=== PATIENT | male | born 2000 | race Hispanic/Latino ===

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

== ENCOUNTER 2022-07-15 15:25 | Emergency (ER) | payer OTHER ==
--- NOTE | 2022-07-15 15:41 | EDPHYS ---
Physician Documentation [facility] Name: Cliff Kang Age: 22 yrs Sex: Male : 2000 Arrival Date: 07/15/2022 Time: 15:25 Bed 9 Private MD: ED Physician Roby Melendez HPI: 07/15 15:51 This 22 yrs old Male presents to ER via Ambulatory with complaints of Cough. snw 15:51 The patient or guardian reports cough, described as moderate, described as severe. snw Onset: The symptoms/episode began/occurred acutely, gradually, and became worse 1 week(s) ago. Associated signs and symptoms: Pertinent positives: chest pain, fever, cough, this patient has no pertinent positive symptoms. Severity of symptoms: At their worst the symptoms were moderate. It is unknown whether or not the patient has had similar symptoms in the past. The patient has not recently seen a physician, The patient has been recently seen by a physician: seen at outside ED one week ago, given rescue inhaler and cough medication. hx of asthma. Historical: - Allergies: 15:43 No Known Allergies; jl7 - Home Meds: 15:43 None [Active]; jl7 - PMHx: 15:43 ADD/ADHD; Asthma; Depression; mood disorder; jl7 - PSHx: 15:43 Left ACL Repair; jl7 - Immunization history:: Adult Immunizations unknown. - Social history:: Smoking status: unknown. ROS: 15:50 Constitutional: Negative for fever, chills, and weight loss, Eyes: Negative for injury, snw pain, redness, and discharge, ENT: Negative for injury, pain, and discharge, Neck: Negative for injury, pain, and swelling, Cardiovascular: Negative for chest pain, palpitations, and edema, Abdomen/GI: Negative for abdominal pain, nausea, vomiting, diarrhea, and constipation, Back: Negative for injury and pain, : Negative for injury, bleeding, discharge, and swelling, MS/Extremity: Negative for injury and deformity, Skin: Negative for injury, rash, and discoloration, Neuro: Negative for headache, weakness, numbness, tingling, and seizure, Psych: Negative for depression, anxiety, suicide ideation, homicidal ideation, and hallucinations. 15:50 Respiratory: Positive for cough, with green sputum, wheezing. Exam: 15:50 Constitutional: This is a well developed, well nourished patient who is awake, alert, snw and in no acute distress. Head/Face: Normocephalic, atraumatic. Eyes: Pupils equal round and reactive to light, extra-ocular motions intact. Lids and lashes normal. Conjunctiva and sclera are non-icteric and not injected. Cornea within normal limits. Periorbital areas with no swelling, redness, or edema. ENT: Nares patent. No nasal discharge, no septal abnormalities noted. Tympanic membranes are normal and external auditory canals are clear. Oropharynx with no redness, swelling, or masses, exudates, or evidence of obstruction, uvula midline. Mucous membranes moist. Neck: Trachea midline, no thyromegaly or masses palpated, and no cervical lymphadenopathy. Supple, full range of motion without nuchal rigidity, or vertebral point tenderness. No Meningismus. Chest/axilla: Normal chest wall appearance and motion. Nontender with no deformity. No lesions are appreciated. Cardiovascular: Regular rate and rhythm with a normal S1 and S2. No gallops, murmurs, or rubs. Normal PMI, no JVD. No pulse deficits. Abdomen/GI: Soft, non-tender, with normal bowel sounds. No distension or tympany. No guarding or rebound. No evidence of tenderness throughout. Back: No spinal tenderness. No costovertebral tenderness. Full range of motion. Skin: Warm, dry with normal turgor. Normal color with no rashes, no lesions, and no evidence of cellulitis. MS/ Extremity: Pulses equal, no cyanosis. Neurovascular intact. Full, normal range of motion. Neuro: Awake and alert, GCS 15, oriented to person, place, time, and situation. Cranial nerves II-XII grossly intact. Motor strength 5/5 in all extremities. Sensory grossly intact. Cerebellar exam normal. Normal gait. Psych: Awake, alert, with orientation to person, place and time. Behavior, mood, and affect are within normal limits. 15:50 Respiratory: the patient does not display signs of respiratory distress, Respirations: shallow respirations, that is moderate, bronchitic cough, Breath sounds: bronchial sounds. Vital Signs: 15:40 BP 145 / 92; Pulse 113; Resp 19; Temp 98.7; Pulse Ox 96% ; Weight 81.65 kg; Height 5 jl7 ft. 5 in. ; 15:40 Body Mass Index 29.95 (81.65 kg, 165.1 cm) [facility] MDM: 15:29 Patient medically screened. snw 15:59 Differential diagnosis: obstructed airway, bronchitis, flu, URI. Data reviewed: vital snw signs, nurses notes. I considered the following discharge prescriptions or medication management in the emergency department Medications were administered in the Emergency Department. See MAR. Care significantly affected by the following chronic conditions: asthma. Counseling: I had a detailed discussion with the patient and/or guardian regarding: the historical points, exam findings, and any diagnostic results supporting the discharge/admit diagnosis, the presence of at least one elevated blood pressure reading (>120/80) during this emergency department visit, the need for outpatient follow up, for definitive care, to return to the emergency department if symptoms worsen or persist or if there are any questions or concerns that arise at home. Response to treatment: There is no appreciated change of the patient's symptoms at this time. Special discussion: I have referred the patient to see his PCP for further evaluation of high blood pressure. Based on the history and exam findings, there is no indication for further emergent testing or inpatient evaluation. I discussed with the patient/guardian the need to see the primary care provider for further evaluation of the symptoms. Administered Medications: 16:12 Drug: Dexamethasone IM 10 mg Route: IM; Site: right deltoid; [facility] 16:13 Follow up: Response: Medication administered at discharge. [facility] 16:12 Drug: AZITHromycin PO 500 mg Route: PO; [facility] 16:13 Follow up: Response: Medication administered at discharge. [facility] 16:12 Drug: Tussionex Pennkinetic ER PO Suspension 5 ml Route: PO; [facility] 16:13 Follow up: Response: Medication administered at discharge. [facility] Disposition Summary: 07/15/22 15:40 Discharge Ordered Location: Home snw Condition: Stable snw Diagnosis - Unspecified asthma with (acute) exacerbation snw Followup: snw - With: Emergency Department - When: As needed - Reason: Worsening of condition Followup: snw - With: Private Physician - When: 2 - 3 days - Reason: Recheck today's complaints, Continuance of care, Re-evaluation by your physician Discharge Instructions: - Discharge Summary Sheet snw - Asthma, Adult snw - Bronchospasm, Adult snw - Hypertension, Adult snw - Form - Blood Pressure Record Sheet snw - How to Take Your Blood Pressure snw Forms: - Work release form snw - Medication Reconciliation Form snw - Thank You Letter snw - Antibiotic Education snw - Prescription Opioid Use snw Prescriptions: - Zyrtec 10 mg Oral Tablet - take 1 tablet by ORAL route once daily As needed; 20 tablet; Refills: 0, snw Product Selection Permitted - Prednisone 20 mg Oral Tablet - take 2 tablets by ORAL route once daily for 5 days; 10 tablet; Refills: 0, snw Product Selection Permitted - Pepcid 20 mg Oral Tablet - take 1 tablet by ORAL route once daily; 20 tablet; Refills: 0, Product snw Selection Permitted - Zithromax 500 mg Oral Tablet - take 1 tablet by ORAL route once daily for 5 days; 5 tablet; Refills: 0, snw Product Selection Permitted Signatures: Swati Power, DEANA-C JACKET PREPARER-Csnw Gonsalo Liriano, RN RN jl7
[2022-07-15] MEDS ORDERED: HYDROCODONE/CHLORPHEN 5 ML/OSYR ONE (16:13)
[2022-07-15] MEDS ORDERED: dexAMETHasone 10 MG/ML VIAL ONE (16:14)
[2022-07-15] MEDS ORDERED: AZITHROMYCIN 250 MG TAB ONE (16:14)
--- NOTE | 2022-07-15 16:14 | ER ---
Nurse's Notes [facility] Name: Cliff Kang Age: 22 yrs Sex: Male : 2000 Arrival Date: 07/15/2022 Time: 15:25 Bed 9 Private MD: Diagnosis: Unspecified asthma with (acute) exacerbation Presentation: 07/15 15:40 Chief complaint: Patient states: Productive cough x 1 week, [facility] discharged jl7 with Mucinex but no improvement. Coronavirus screen: cough unrelated to allergies. Ebola Screen: No symptoms or risks identified at this time. Initial Sepsis Screen: Does the patient meet any 2 criteria? No. Patient's initial sepsis screen is negative. Does the patient have a suspected source of infection? No. Patient's initial sepsis screen is negative. Risk Assessment: Do you want to hurt yourself or someone else? Patient reports no desire to harm self or others. Onset of symptoms was July 08, 2022. Care prior to arrival: None. 15:40 Method Of Arrival: Ambulatory [facility] 15:40 Acuity: MIRNA 3 jl7 Triage Assessment: 15:43 General: Appears in no apparent distress. uncomfortable, Behavior is calm, cooperative, jl7 appropriate for age. Pain: Denies pain. Historical: - Allergies: 15:43 No Known Allergies; jl7 - Home Meds: 15:43 None [Active]; jl7 - PMHx: 15:43 ADD/ADHD; Asthma; Depression; mood disorder; jl7 - PSHx: 15:43 Left ACL Repair; jl7 - Immunization history:: Adult Immunizations unknown. - Social history:: Smoking status: unknown. Vital Signs: 15:40 BP 145 / 92; Pulse 113; Resp 19; Temp 98.7; Pulse Ox 96% ; Weight 81.65 kg; Height 5 jl7 ft. 5 in. ; 15:40 Body Mass Index 29.95 (81.65 kg, 165.1 cm) jl7 ED Course: 15:26 Patient arrived in ED. mr 15:27 Swati Power [facility]C [facility] snw 15:27 Roby Melendez MD is Attending Physician. snw 15:33 Katina Sinha, ROSANGELA is Primary Nurse. nj1 15:43 Triage completed. jl7 15:43 Arm band placed on right wrist. jl7 16:13 No provider procedures requiring assistance completed. Patient did not have IV access jl7 during this emergency room visit. Administered Medications: 16:12 Drug: Dexamethasone IM 10 mg Route: IM; Site: right deltoid; jl7 16:13 Follow up: Response: Medication administered at discharge. jl7 16:12 Drug: AZITHromycin PO 500 mg Route: PO; jl7 16:13 Follow up: Response: Medication administered at discharge. jl7 16:12 Drug: Tussionex Pennkinetic ER PO Suspension 5 ml Route: PO; jl7 16:13 Follow up: Response: Medication administered at discharge. jl7 Outcome: 15:40 Discharge ordered by MD. snw 16:13 Discharged to home ambulatory. jl7 16:13 Condition: stable 16:13 Discharge instructions given to patient, Instructed on discharge instructions, follow up and referral plans. medication usage, Demonstrated understanding of instructions, follow-up care, medications, Prescriptions given X 4. 16:13 Patient left the ED. jl7 Signatures: Swati Power, CONCRETE [employer]EMAN-C [employer]CR[employer]E FOREMAN-Csnw Jacey Monge Jahala, RN RN jl7 Katina Sinha RN RN nj1
[2022-07-15 16:27] VITALS: BP 145/92; TEMP 98.7; O2SAT 96
== END 2022-07-15 16:13 | disposition home or self-care (01) ==
LOC: ER 15:25
DX: J45.901 Unspecified asthma with (acute) exacerbation (principal)
CPT/HCPCS: 96372; 99284; J1100

== ENCOUNTER 2022-08-24 10:57 | Emergency (ER) | payer OTHER ==
--- OUTSIDE RECORDS SUMMARY | 2022-08-24 11:17 | XMS REPORT | Continuity of Care Document ---
:2000 Author Organization [facility] t Address [address] [place] [address] Care Team Providers Name Role Phone James Krueger Primary Care Physician MONROE LOOYLA Attending Clinician Unavailable Monroe Mo Attending Clinician Unknown, Attending Attending Clinician Unavailable Sathya Sherwood Attending Clinician SATHYA VASQUEZ Attending Clinician Unavailable Cami Graff RN Attending Clinician Unavailable NORA BARRERA Attending Clinician Unavailable Nora Barrera MD Attending Clinician DON FINNEY Attending Clinician Unavailable Don Finney MD Attending Clinician TRACY BABIN Attending Clinician Unavailable Tracy Babin MD Attending Clinician Doctor Unassigned, Edgard Attending Clinician Unavailable MARIMAR JEWELL Attending Clinician Unavailable MITALI LOWERY Attending Clinician Unavailable Mitali Madera Attending Clinician Provider, [facility] Attending Clinician Unavailable Devorah Zacarias RN Attending Clinician Unavailable STEVIE GREGG Attending Clinician Unavailable Shivani Damico Attending Clinician Marysol STONE, Stevie Attending Clinician Only, Ang Db Test Attending Clinician Unavailable Farrukh Landry Attending Clinician FARRUKH HYMAN Attending Clinician Unavailable LEA SWAIN Attending Clinician Unavailable Anton GILBERT, Chin Brown Attending Clinician Lab, [facility] Attending Clinician Unavailable AREN SHABAZZ Attending Clinician Unavailable Mele CIGAR HEAD PERFORATOR, Aren Attending Clinician Nurse, [facility] Attending Clinician Unavailable UNKNOWN, ATTENDING Attending Clinician Unavailable TACHO CAIN Attending Clinician Unavailable Miguel Angel PT, Lolly Langford Attending Clinician Unavailable Tacho Cain MD Attending Clinician Landon HASH SLINGER, Guerline Howell Attending Clinician Unavailable TRACY BABIN Admitting Clinician Unavailable Payers Payer Name Policy Type Policy Number Effective Date Expiration Date [employer] [id number] 2021 00:00:00 Problems Condition Condition Condition Status Onset Resolution Last Treating Co mments Source Name Details Category Date Date Treatment Clinician Date 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 Added automatic ally from request for surgery [id number] Allergies, Adverse Reactions, Alerts Allergy Allergy Status Severity Reaction(s) Onset Inactive Treating Comm ents Source Name Type Date Date Clinician BENZONAT DRUG Active Anxiety Univers ATE INGREDI 3-30 ity of 00:00: [place] 00 Medical Branch Benzonat Propensi Active Anxiety 0 Unive rs ate ty to 3-30 ity of adverse 00:00: [place] reaction 00 Medical s Branch NO KNOWN Drug Active Univers ALLERGIE Class ity of S [facility] Social History Social Habit Start Date Stop Date Quantity Comments Source Gender identity Universit y [facility] Sexual orientation Univer sity [facility] History of tobacco Cigarette Smoker [facility] of [facility] Alcohol intake 2022-08-19 2022-08-19 Current drinker Unive rsity of 00:00:00 00:00:00 of alcohol [facility] (finding) Branch Exposure to 2022-07-01 2022-07-11 Not sure University of SARS-CoV-2 (event) 00:00:00 10:50:00 [facility] Tobacco use and 2022-04-12 2022-04-12 User of smokeless Un iversity of exposure 00:00:00 00:00:00 tobacco [facility] Cigarettes smoked 2022-04-12 2022-04-12 Univers ity of current (pack per 00:00:00 00:00:00 [facility] ) - Reported Branch Cigarette 2022-04-12 2022-04-12 University of pack-years 00:00:00 00:00:00 [facility] Tobacco Comment 2022-04-12 2022-04-12 vape Universit y of 00:00:00 00:00:00 [facility] Alcohol Comment 2022-04-12 2022-04-12 ocassional Universit y of 00:00:00 00:00:00 [facility] History of Social 2021-09-07 2021-09-07 Univers ity of function 00:00:00 00:00:00 [facility] Sex Assigned At [birth year] Universit y of 00:00:00 00:00:00 [facility] Smoking Status Start Date Stop Date Source Smokes tobacco daily 2022-04-12 00:00:00 Univers ity of [facility] Never smoked tobacco [facility] Medications Ordered Filled Start Stop Current Ordering Indication Dosage Frequency Signature Comments Components Source Medication Medication Date Date Medication? Clinician (SIG) Name Name dexAMETHaso 2022- No [id number] 12mg Univers ne 08-19 ity of (DECADRON) 20:30: 19:51 [place] tablet 12 00 :00 Medical Branch dexAMETHaso 2022- No [id number] 12mg 12 mg, Univers ne 08-19 Oral, ity of (DECADRON) 20:30: 19:51 ONCE, 1 [place] tablet 12 00 :00 dose, On Medica l mg 08/19/22 Branch at 1530, Routine dexAMETHaso 2022- No [id number] 12mg Univers ne 08-19 ity of (DECADRON) 20:30: 19:51 [place] tablet 12 00 :00 Medical mg Branch dexAMETHaso 2022- No [id number] 12mg 12 mg, [facility] 08-19 Oral, ity of (DECADRON) 20:30: 19:51 ONCE, 1 [place] tablet 12 00 :00 dose, On Medica l mg [place] 08/19/22 Branch at 1530, Routine dexAMETHaso 2022- No [id number] 12mg [facility] 08-19 ity of (DECADRON) 20:30: 19:51 [place] tablet 12 00 :00 Medical mg Branch dexAMETHaso 2022- No [id number] 12mg 12 mg, [facility] 08-19 Oral, ity of (DECADRON) 20:30: 19:51 ONCE, 1 [place] tablet 12 00 :00 dose, On Medica l mg [place] 08/19/22 Branch at 1530, Routine dexAMETHaso 2022- No [id number] 12mg [facility] 08-19 ity of (DECADRON) 20:30: 19:51 [place] tablet 12 00 :00 Medical mg Branch dexAMETHaso 2022- No [id number] 12mg 12 mg, [facility] 08-19 Oral, ity of (DECADRON) 20:30: 19:51 ONCE, 1 [place] tablet 12 00 :00 dose, On Medica l mg [place] 08/19/22 Branch at 1530, Routine dexAMETHaso 2022- No [id number] 12mg [facility] 08-19 ity of (DECADRON) 20:30: 19:51 [place] tablet 12 00 :00 Medical mg Branch dexAMETHaso 2022- No [id number] 12mg 12 mg, [facility] 08-19 Oral, ity of (DECADRON) 20:30: 19:51 ONCE, 1 [place] tablet 12 00 :00 dose, On Medica l mg [place] 08/19/22 [place] at 1530, Routine codeine-gua 2022- Yes [id number] 10mL Take 10 mL Univers ifenesin 08-1917 by mouth ity of 10-100 mg/5 00:00: 04:59 every 8 [place] mL oral 00 :00 (eight) Medical solution hours as Branch needed for Cough for up to 7 days. Indication s: acute pain codeine-gua 2022- Yes [id number] 10mL Take 10 mL Univers ifenesin 08-1917 by mouth ity of 10-100 mg/5 00:00: 04:59 every 8 [place] mL oral 00 :00 (eight) Medical solution hours as Branch needed for Cough for up to 7 days. Indication s: acute pain codeine-gua 2022- Yes [id number] 10mL Take 10 mL Univers ifenesin 08-1917 by mouth ity of 10-100 mg/5 00:00: 04:59 every 8 [place] mL oral 00 :00 (eight) Medical solution hours as Branch needed for Cough for up to 7 days. Indication s: acute pain codeine-gua 2022- Yes [id number] 10mL Take 10 mL Univers ifenesin 08-19 by mouth ity of 10-100 mg/5 00:00: 04:59 every 8 [place] mL oral 00 :00 (eight) Medical solution hours as Branch needed for Cough for up to 7 days. Indication s: acute pain codeine-gua 2022- Yes [id number] 10mL Take 10 mL Univers ifenesin 08-1917 by mouth ity of 10-100 mg/5 00:00: 04:59 every 8 [place] mL oral 00 :00 (eight) Medical solution hours as Branch needed for Cough for up to 7 days. Indication s: acute pain dexamethaso 2022- No [id number] 10mg U nivers ne 07-20 ity of (DECADRON) 17:15: 16:20 [place] injection 00 :00 Medical 10 mg Branch dexamethaso 2022- No [id number] 10mg 10 mg, Univers ne 07-20 Intramuscu ity of (DECADRON) 17:15: 16:20 lar, ONCE, [place] injection 00 :00 1 dose, On Medi carlos 10 mg 07/20/22 Branch at 1215, Routine promethazin 2022- Yes [id number] 5mL Take 5 mL Univers e-dextromet 07-20 06-20 by mouth 4 i ty of horphan 00:00: 04:59 (four) [place] 6.25-15 00 :00 times Medical mg/5 mL daily for Branch syrup 10 days. amoxicillin 2022- Yes [id number] 1{tbl} Take 1 Univers -clavulanat 6- 06-20 tablet by it y of e 00:00: 04:59 mouth in [place] (AUGMENTIN) 00 :00 the Medical 875-125 mg morning Branch per tablet and 1 tablet in the evening. Do all this for 10 days. promethazin 2022- Yes [id number] 5mL Take 5 mL Univers e-dextromet 07-20-20 by mouth 4 i ty of horphan 00:00: 04:59 (four) [place] 6.25-15 00 :00 times Medical mg/5 mL daily for Branch syrup 10 days. amoxicillin 2022- Yes [id number] 1{tbl} Take 1 Univers -clavulanat 6- 06-20 tablet by it y of e 00:00: 04:59 mouth in [place] (AUGMENTIN) 00 :00 the Medical 875-125 mg morning Branch per tablet and 1 tablet in the evening. Do all this for 10 days. bromphenira Yes [id number] 10mL Take 10 mL Univers mine-pseudo 5-31 by mouth 4 it y of ephedrine-D 00:00: (four) [place] (BROMFED 00 times Medical DM) 2-30-10 daily as Bran ch mg/5 mL needed for syrup Cold symptoms. albuterol Yes [id number] 2{puff} Inhale 2 Univers 90 5-31 Puffs ity of mcg/actuati 00:00: every 6 [place] on inhaler 00 (six) Medical hours as Branch needed for Shortness of Breath or Wheezing. ibuprofen Yes [id number] 600mg Take 1 U nivers 600 mg 5-31 tablet by ity of tablet 00:00: mouth [place] 00 every 6 Medical (six) Branch hours as needed for Pain (scale 1-3) or Pain (scale 4-6). bromphenira 2022-0 Yes [id number] 10mL Take 10 mL Univers mine-pseudo 5-31 by mouth 4 it y of ephedrine-D 00:00: (four) [place] (BROMFED 00 times Medical DM) 2-30-10 daily as Bran ch mg/5 mL needed for syrup Cold symptoms. albuterol 2022-0 Yes [id number] 2{puff} Inhale 2 Univers 90 5-31 Puffs ity of mcg/actuati 00:00: every 6 [place] on inhaler 00 (six) Medical hours as Branch needed for Shortness of Breath or Wheezing. ibuprofen 2022-0 Yes [id number] 600mg Take 1 U nivers 600 mg 5-31 tablet by ity of tablet 00:00: mouth [place] 00 every 6 Medical (six) Branch hours as needed for Pain (scale 1-3) or Pain (scale 4-6). bromphenira 2022-0 Yes [id number] 10mL Take 10 mL Univers mine-pseudo 5-31 by mouth 4 it y of ephedrine-D 00:00: (four) [place] (BROMFED 00 times Medical DM) 2-30-10 daily as Bran ch mg/5 mL needed for syrup Cold symptoms. albuterol 2022-0 Yes [id number] 2{puff} Inhale 2 Univers 90 5-31 Puffs ity of mcg/actuati 00:00: every 6 [place] on inhaler 00 (six) Medical hours as Branch needed for Shortness of Breath or Wheezing. ibuprofen 2022-0 Yes [id number] 600mg Take 1 U nivers 600 mg 5-31 tablet by ity of tablet 00:00: mouth [place] 00 every 6 Medical (six) Branch hours as needed for Pain (scale 1-3) or Pain (scale 4-6). bromphenira 2022-0 Yes [id number] 10mL Take 10 mL Univers mine-pseudo 5-31 by mouth 4 it y of ephedrine-D 00:00: (four) [place] (BROMFED 00 times Medical DM) 2-30-10 daily as Bran ch mg/5 mL needed for syrup Cold symptoms. albuterol 2022-0 Yes [id number] 2{puff} Inhale 2 Univers 90 5-31 Puffs ity of mcg/actuati 00:00: every 6 [place] on inhaler 00 (six) Medical hours as Branch needed for Shortness of Breath or Wheezing. ibuprofen 2022-0 Yes [id number] 600mg Take 1 U nivers 600 mg 5-31 tablet by ity of tablet 00:00: mouth [place] 00 every 6 Medical (six) Branch hours as needed for Pain (scale 1-3) or Pain (scale 4-6). bromphenira 2022-0 Yes [id number] 10mL Take 10 mL Univers mine-pseudo 5-31 by mouth 4 it y of ephedrine-D 00:00: (four) [place] (BROMFED 00 times Medical DM) 2-30-10 daily as Bran ch mg/5 mL needed for syrup Cold symptoms. albuterol 2022-0 Yes [id number] 2{puff} Inhale 2 Univers 90 5-31 Puffs ity of mcg/actuati 00:00: every 6 [place] on inhaler 00 (six) Medical hours as Branch needed for Shortness of Breath or Wheezing. ibuprofen 2022-0 Yes [id number] 600mg Take 1 U nivers 600 mg 5-31 tablet by ity of tablet 00:00: mouth [place] 00 every 6 Medical (six) Branch hours as needed for Pain (scale 1-3) or Pain (scale 4-6). bromphenira 2022-0 Yes [id number] 10mL Take 10 mL Univers mine-pseudo 5-31 by mouth 4 it y of ephedrine-D 00:00: (four) [place] (BROMFED 00 times Medical DM) 2-30-10 daily as Bran ch mg/5 mL needed for syrup Cold symptoms. albuterol 2022-0 Yes [id number] 2{puff} Inhale 2 Univers 90 5-31 Puffs ity of mcg/actuati 00:00: every 6 [place] on inhaler 00 (six) Medical hours as Branch needed for Shortness of Breath or Wheezing. ibuprofen 2022-0 Yes [id number] 600mg Take 1 U nivers 600 mg 5-31 tablet by ity of tablet 00:00: mouth [place] 00 every 6 Medical (six) Branch hours as needed for Pain (scale 1-3) or Pain (scale 4-6). bromphenira 202-0 Yes [id number] 10mL Take 10 mL Univers mine-pseudo 5-31 by mouth 4 it y of ephedrine-D 00:00: (four) [place] (BROMFED 00 times Medical DM) 2-30-10 daily as Bran ch mg/5 mL needed for syrup Cold symptoms. albuterol Yes [id number] 2{puff} Inhale 2 Univers 90 5-31 Puffs ity of mcg/actuati 00:00: every 6 [place] on inhaler 00 (six) Medical hours as Branch needed for Shortness of Breath or Wheezing. ibuprofen 0 Yes [id number] 600mg Take 1 U nivers 600 mg 5-31 tablet by ity of tablet 00:00: mouth [place] 00 every 6 Medical (six) Branch hours as needed for Pain (scale 1-3) or Pain (scale 4-6). bromphenira 0 Yes [id number] 10mL Take 10 mL Univers mine-pseudo 5-31 by mouth 4 it y of ephedrine-D 00:00: (four) [place] (BROMFED 00 times Medical DM) 2-30-10 daily as Bran ch mg/5 mL needed for syrup Cold symptoms. albuterol Yes [id number] 2{puff} Inhale 2 Univers 90 5-31 Puffs ity of mcg/actuati 00:00: every 6 [place] on inhaler 00 (six) Medical hours as Branch needed for Shortness of Breath or Wheezing. ibuprofen 0 Yes [id number] 600mg Take 1 U nivers 600 mg 5-31 tablet by ity of tablet 00:00: mouth [place] 00 every 6 Medical (six) Branch hours as needed for Pain (scale 1-3) or Pain (scale 4-6). bromphenira 0 Yes [id number] 10mL Take 10 mL Univers mine-pseudo 5-31 by mouth 4 it y of ephedrine-D 00:00: (four) [place] (BROMFED 00 times Medical DM) 2-30-10 daily as Bran ch mg/5 mL needed for syrup Cold symptoms. albuterol 0 Yes [id number] 2{puff} Inhale 2 Univers 90 5-31 Puffs ity of mcg/actuati 00:00: every 6 [place] on inhaler 00 (six) Medical hours as Branch needed for Shortness of Breath or Wheezing. ibuprofen Yes [id number] 600mg Take 1 U nivers 600 mg 5-31 tablet by ity of tablet 00:00: mouth [place] 00 every 6 Medical (six) Branch hours as needed for Pain (scale 1-3) or Pain (scale 4-6). bromphenira Yes [id number] 10mL Take 10 mL Univers mine-pseudo 5-31 by mouth 4 it y of ephedrine-D 00:00: (four) [place] (BROMFED 00 times Medical DM) 2-30-10 daily as Bran ch mg/5 mL needed for syrup Cold symptoms. albuterol Yes [id number] 2{puff} Inhale 2 Univers 90 5-31 Puffs ity of mcg/actuati 00:00: every 6 [place] on inhaler 00 (six) Medical hours as Branch needed for Shortness of Breath or Wheezing. ibuprofen Yes [id number] 600mg Take 1 U nivers 600 mg 5-31 tablet by ity of tablet 00:00: mouth [place] 00 every 6 Medical (six) Branch hours as needed for Pain (scale 1-3) or Pain (scale 4-6). clindamycin 2022- Yes [id number] 300mg Take 1 Univers 300 mg 4-21 05-13 capsule by ity of capsule 00:00: 04:59 mouth 4 [place] 00 :00 (four) Medical times Branch daily for 21 days. clindamycin 2022- Yes [id number] 300mg Take 1 Univers 300 mg 4-21 05-13 capsule by ity of capsule 00:00: 04:59 mouth 4 [place] 00 :00 (four) Medical times Branch daily for 21 days. clindamycin 2022- Yes [id number] 300mg Take 1 Univers 300 mg 4-21 05-13 capsule by ity of capsule 00:00: 04:59 mouth 4 [place] 00 :00 (four) Medical times Branch daily for 21 days. clindamycin 2022- Yes [id number] 300mg Take 1 Univers 300 mg 4-21 05-13 capsule by ity of capsule 00:00: 04:59 mouth 4 [place] 00 :00 (four) Medical times Branch daily for 21 days. clindamycin 2022- Yes [id number] 300mg Take 1 Univers 300 mg 4-21 05-13 capsule by ity of capsule 00:00: 04:59 mouth 4 [place] 00 :00 (four) Medical times Branch daily for 21 days. bromphenira 2023-0 3- No [id number] 5mL Take 5 mL Univers mine-pseudo 3-30 04-10 by mouth 4 i ty of ephedrine-D 00:00: 04:59 (four) [place] (BROMFED 00 :00 times Medical DM) 2-30-10 daily for Bra nch mg/5 mL 10 days. syrup bromphenira 2023-0 3- No [id number] 5mL Take 5 mL Univers mine-pseudo 3-30 04-10 by mouth 4 i ty of ephedrine-D 00:00: 04:59 (four) [place] (BROMFED 00 :00 times Medical DM) 2-30-10 daily for Bra nch mg/5 mL 10 days. syrup acetaminoph 2023-0 Yes [id number] 1{tbl} Take 1-2 Univers en-codeine 3-23 tablets by ity of 300-30 mg 00:00: mouth [place] tablet 00 every 6 Medical (six) Branch hours as needed for Pain (scale 4-6). Indication s: acute pain benzonatate 2023-0 Yes [id number] 100mg Take 1 Univers 100 mg 3-23 capsule by ity of capsule 00:00: mouth 3 [place] 00 (three) Medical times Branch daily as needed for Cough. acetaminoph 2023-0 Yes [id number] 1{tbl} Take 1-2 Univers en-codeine 3-23 tablets by ity of 300-30 mg 00:00: mouth [place] tablet 00 every 6 Medical (six) Branch hours as needed for Pain (scale 4-6). Indication s: acute pain benzonatate 2023-0 Yes [id number] 100mg Take 1 Univers 100 mg 3-23 capsule by ity of capsule 00:00: mouth 3 [place] 00 (three) Medical times Branch daily as needed for Cough. acetaminoph 2023-0 Yes [id number] 1{tbl} Take 1-2 Univers en-codeine 3-23 tablets by ity of 300-30 mg 00:00: mouth [place] tablet 00 every 6 Medical (six) Branch hours as needed for Pain (scale 4-6). Indication s: acute pain benzonatate 2023-0 Yes [id number] 100mg Take 1 Univers 100 mg 3-23 capsule by ity of capsule 00:00: mouth 3 [place] 00 (three) Medical times Branch daily as needed for Cough. acetaminoph 2023-0 Yes [id number] 1{tbl} Take 1-2 Univers en-codeine 3-23 tablets by ity of 300-30 mg 00:00: mouth [place] tablet 00 every 6 Medical (six) Branch hours as needed for Pain (scale 4-6). Indication s: acute pain benzonatate 2023-0 Yes [id number] 100mg Take 1 Univers 100 mg 3-23 capsule by ity of capsule 00:00: mouth 3 [place] 00 (three) Medical times Branch daily as needed for Cough. acetaminoph 2023-0 Yes [id number] 1{tbl} Take 1-2 Univers en-codeine 3-23 tablets by ity of 300-30 mg 00:00: mouth [place] tablet 00 every 6 Medical (six) Branch hours as needed for Pain (scale 4-6). Indication s: acute pain benzonatate 2023-0 Yes [id number] 100mg Take 1 Univers 100 mg 3-23 capsule by ity of capsule 00:00: mouth 3 [place] 00 (three) Medical times Branch daily as needed for Cough. acetaminoph 2023-0 Yes [id number] 1{tbl} Take 1-2 Univers en-codeine 3-23 tablets by ity of 300-30 mg 00:00: mouth [place] tablet 00 every 6 Medical (six) Branch hours as needed for Pain (scale 4-6). Indication s: acute pain benzonatate 2023-0 Yes [id number] 100mg Take 1 Univers 100 mg 3-23 capsule by ity of capsule 00:00: mouth 3 [place] 00 (three) Medical times Branch daily as needed for Cough. acetaminoph 2023-0 Yes [id number] 1{tbl} Take 1-2 Univers en-codeine 3-23 tablets by ity of 300-30 mg 00:00: mouth [place] tablet 00 every 6 Medical (six) Branch hours as needed for Pain (scale 4-6). Indication s: acute pain benzonatate 2023-0 Yes [id number] 100mg Take 1 Univers 100 mg 3-23 capsule by ity of capsule 00:00: mouth 3 [place] 00 (three) Medical times Branch daily as needed for Cough. acetaminoph 2023-0 Yes [id number] 1{tbl} Take 1-2 Univers en-codeine 3-23 tablets by ity of 300-30 mg 00:00: mouth [place] tablet 00 every 6 Medical (six) Branch hours as needed for Pain (scale 4-6). Indication s: acute pain benzonatate 2023-0 Yes [id number] 100mg Take 1 Univers 100 mg 3-23 capsule by ity of capsule 00:00: mouth 3 [place] 00 (three) Medical times Branch daily as needed for Cough. acetaminoph 2023-0 Yes [id number] 1{tbl} Take 1-2 Univers en-codeine 3-23 tablets by ity of 300-30 mg 00:00: mouth [place] tablet 00 every 6 Medical (six) Branch hours as needed for Pain (scale 4-6). Indication s: acute pain benzonatate 2023-0 Yes [id number] 100mg Take 1 Univers 100 mg 3-23 capsule by ity of capsule 00:00: mouth 3 [place] 00 (three) Medical times Branch daily as needed for Cough. acetaminoph 3-0 Yes [id number] 1{tbl} Take 1-2 Univers en-codeine 3-23 tablets by ity of 300-30 mg 00:00: mouth [place] tablet 00 every 6 Medical (six) Branch hours as needed for Pain (scale 4-6). Indication s: acute pain benzonatate 2023-0 Yes [id number] 100mg Take 1 Univers 100 mg 3-23 capsule by ity of capsule 00:00: mouth 3 [place] 00 (three) Medical times Branch daily as needed for Cough. acetaminoph 2023-0 Yes [id number] 1{tbl} Take 1-2 Univers en-codeine 3-23 tablets by ity of 300-30 mg 00:00: mouth [place] tablet 00 every 6 Medical (six) Branch hours as needed for Pain (scale 4-6). Indication s: acute pain benzonatate 2023-0 Yes [id number] 100mg Take 1 Univers 100 mg 3-23 capsule by ity of capsule 00:00: mouth 3 [place] 00 (three) Medical times Branch daily as needed for Cough. acetaminoph 2023-0 Yes [id number] 1{tbl} Take 1-2 Univers en-codeine 3-23 tablets by ity of 300-30 mg 00:00: mouth [place] tablet 00 every 6 Medical (six) Branch hours as needed for Pain (scale 4-6). Indication s: acute pain benzonatate 2023-0 Yes [id number] 100mg Take 1 Univers 100 mg 3-23 capsule by ity of capsule 00:00: mouth 3 [place] 00 (three) Medical times Branch daily as needed for Cough. acetaminoph 2023-0 Yes [id number] 1{tbl} Take 1-2 Univers en-codeine 3-23 tablets by ity of 300-30 mg 00:00: mouth [place] tablet 00 every 6 Medical (six) Branch hours as needed for Pain (scale 4-6). Indication s: acute pain benzonatate 2023-0 Yes [id number] 100mg Take 1 Univers 100 mg 3-23 capsule by ity of capsule 00:00: mouth 3 [place] 00 (three) Medical times Branch daily as needed for Cough. acetaminoph 2023-0 Yes [id number] 1{tbl} Take 1-2 Univers en-codeine 3-23 tablets by ity of 300-30 mg 00:00: mouth [place] tablet 00 every 6 Medical (six) Branch hours as needed for Pain (scale 4-6). Indication s: acute pain benzonatate 2023-0 Yes [id number] 100mg Take 1 Univers 100 mg 3-23 capsule by ity of capsule 00:00: mouth 3 [place] 00 (three) Medical times Branch daily as needed for Cough. acetaminoph 2023-0 Yes [id number] 1{tbl} Take 1-2 Univers en-codeine 3-23 tablets by ity of 300-30 mg 00:00: mouth [place] tablet 00 every 6 Medical (six) Branch hours as needed for Pain (scale 4-6). Indication s: acute pain benzonatate 2023-0 Yes [id number] 100mg Take 1 Univers 100 mg 3-23 capsule by ity of capsule 00:00: mouth 3 [place] 00 (three) Medical times Branch daily as needed for Cough. acetaminoph 2023-0 Yes [id number] 1{tbl} Take 1-2 Univers en-codeine 3-23 tablets by ity of 300-30 mg 00:00: mouth [place] tablet 00 every 6 Medical (six) Branch hours as needed for Pain (scale 4-6). Indication s: acute pain benzonatate 2023-0 Yes [id number] 100mg Take 1 Univers 100 mg 3-23 capsule by ity of capsule 00:00: mouth 3 [place] 00 (three) Medical times Branch daily as needed for Cough. acetaminoph 3-0 Yes [id number] 1{tbl} Take 1-2 Univers en-codeine 3-23 tablets by ity of 300-30 mg 00:00: mouth [place] tablet 00 every 6 Medical (six) Branch hours as needed for Pain (scale 4-6). Indication s: acute pain benzonatate 3-0 Yes [id number] 100mg Take 1 Univers 100 mg 3-23 capsule by ity of capsule 00:00: mouth 3 [place] 00 (three) Medical times Branch daily as needed for Cough. acetaminoph 2022-0 Yes [id number] 1{tbl} Take 1-2 Univers en-codeine 3-23 tablets by ity of 300-30 mg 00:00: mouth [place] tablet 00 every 6 Medical (six) Branch hours as needed for Pain (scale 4-6). Indication s: acute pain benzonatate 2022-0 Yes [id number] 100mg Take 1 [facility] 100 mg 3-23 capsule by ity of capsule 00:00: mouth 3 [place] 00 (three) Medical times Branch daily as needed for Cough. nirmatrelvi 2022-0 Yes [id number] 3{tbl} Take 3 Univers r-ritonavir 3-16 tablets by it y of (PAXLOVID, 00:00: mouth in [place] EUA,) 300 00 the Medical mg (150 mg morning Branch x 2)-100 mg and 3 tablet tablets in the evening. nirmatrelvi 2022-0 Yes [id number] 3{tbl} Take 3 Univers r-ritonavir 3-16 tablets by it y of (PAXLOVID, 00:00: mouth in [place] EUA,) 300 00 the Medical mg (150 mg morning Branch x 2)-100 mg and 3 tablet tablets in the evening. nirmatrelvi 2022-0 Yes [id number] 3{tbl} Take 3 Univers r-ritonavir 3-16 tablets by it y of (PAXLOVID, 00:00: mouth in [place] EUA,) 300 00 the Medical mg (150 mg morning Branch x 2)-100 mg and 3 tablet tablets in the evening. nirsdtrelvi 2022-0 Yes [id number] 3{tbl} Take 3 [facility] r-ritonavir 3-16 tablets by it y of (PAXLOVID, 00:00: mouth in [place] EUA,) 300 00 the Medical mg (150 mg morning Branch x 2)-100 mg and 3 tablet tablets in the evening. nirmatrelvi 2022-0 Yes [id number] 3{tbl} Take 3 [facility] r-ritonavir 3-16 tablets by it y of (PAXLOVID, 00:00: mouth in [place] EUA,) 300 00 the Medical mg (150 mg morning Branch x 2)-100 mg and 3 tablet tablets in the evening. nirmatrelvi 2022-0 Yes [id number] 3{tbl} Take 3 [facility] r-ritonavir 3-16 tablets by it y of (PAXLOVID, 00:00: mouth in [place] EUA,) 300 00 the Medical mg (150 mg morning Branch x 2)-100 mg and 3 tablet tablets in the evening. nirsdtrelvi 2022-0 Yes [id number] 3{tbl} Take 3 [facility] r-ritonavir 3-16 tablets by it y of (PAXLOVID, 00:00: mouth in [place] EUA,) 300 00 the Medical mg (150 mg morning Branch x 2)-100 mg and 3 tablet tablets in the evening. nirsdtrelvi 2022-0 Yes [id number] 3{tbl} Take 3 [facility] r-ritonavir 3-16 tablets by it y of (PAXLOVID, 00:00: mouth in [place] EUA,) 300 00 the Medical mg (150 mg morning Branch x 2)-100 mg and 3 tablet tablets in the evening. nirmatrelvi 2022-0 Yes [id number] 3{tbl} Take 3 [facility] r-ritonavir 3-16 tablets by it y of (PAXLOVID, 00:00: mouth in [place] EUA,) 300 00 the Medical mg (150 mg morning Branch x 2)-100 mg and 3 tablet tablets in the evening. nirsdtrelvi 2022-0 Yes [id number] 3{tbl} Take 3 [facility] r-ritonavir 3-16 tablets by it y of (PAXLOVID, 00:00: mouth in [place] EUA,) 300 00 the Medical mg (150 mg morning Branch x 2)-100 mg and 3 tablet tablets in the evening. [facility] Yes [id number] 3{tbl} Take 3 [facility] r-ritonavir 3-16 tablets by it y of (PAXLOVID, 00:00: mouth in [place] EUA,) 300 00 the Medical mg (150 mg morning Branch x 2)-100 mg and 3 tablet tablets in the evening. nirmatrelvi Yes [id number] 3{tbl} Take 3 [facility] r-ritonavir 3-16 tablets by it y of (PAXLOVID, 00:00: mouth in [place] EUA,) 300 00 the Medical mg (150 mg morning Branch x 2)-100 mg and 3 tablet tablets in the evening. nirsdtrelvi Yes [id number] 3{tbl} Take 3 [facility] r-ritonavir 3-16 tablets by it y of (PAXLOVID, 00:00: mouth in [place] EUA,) 300 00 the Medical mg (150 mg morning Branch x 2)-100 mg and 3 tablet tablets in the evening. nirsdtrelvi 2022- No [id number] 3{tbl} Take 3 [facility] r-ritonavir 3-16 - tablets by i ty of (PAXLOVID, 00:00: 00:00 mouth in [place] EUA,) 300 00 :00 the Medical mg (150 mg morning Branch x 2)-100 mg and 3 tablet tablets in the evening. penicillin 2022- No [id number] 1.210 U nivers g 04-12 ity of benzathine 20:30: 19:50 [place] (BICILLIN 00 :00 Medical L-A) Branch injection 1.2 Million Units penicillin 2022- No [id number] 1.210 1.2 U nivers g 04-12 Million ity of benzathine 20:30: 19:50 [place] (BICILLIN 00 :00 Intramuscu Medi carlos L-A) lar, ONCE, Branch injection 1 dose, On 1.2 Million Ara 04/12/22 Units at 1430, WILY
Re ason for Anti-Infec tive: Documented Infection< br>Documen manfred Infection Site: HEENT
D uration of Therapy: Other (see Comments) methylPREDN 2021-02- No [id number] 40mg [facility] ISolone sod 02-17- ity of succ 17:15: 16:31 [place] (SOLU-MEDRO 00 :00 Medical L (PF)) Branch injection 40 mg methylPREDN 2021-02- No [id number] 40mg 40 mg, [facility] ISolone sod 02-17 Intramuscu i ty of succ 17:15: 16:31 lar, ONCE, [place] (SOLU-MEDRO 00 :00 1 dose, On Me dical L (PF)) Mon Branch injection 12/18/21 at 40 mg 1115, Routine bromphenira 2021-02 Yes [id number] 5mL Take 5 mL [facility] mine-pseudo 1-07 by mouth 4 it y of ephedrine-D 00:00: (four) [place] M (BROMFED 00 times Medical DM) 2-30-10 daily as Bran ch mg/5 mL needed for syrup Congestion /Allergies . bromphenira 2021-02 Yes [id number] 5mL Take 5 mL [facility] mine-pseudo 1-07 by mouth 4 it y of ephedrine-D 00:00: (four) [place] (BROMFED 00 times Medical DM) 2-30-10 daily as Bran ch mg/5 mL needed for syrup Congestion /Allergies . bromphenira 2021-02 Yes [id number] 5mL Take 5 mL [facility] mine-pseudo 1-07 by mouth 4 it y of ephedrine-D 00:00: (four) [place] (BROMFED 00 times Medical DM) 2-30-10 daily as Bran ch mg/5 mL needed for syrup Congestion /Allergies . bromphenira 2021-02 Yes [id number] 5mL Take 5 mL [facility] mine-pseudo 1-07 by mouth 4 it y of ephedrine-D 00:00: (four) [place] (BROMFED 00 times Medical DM) 2-30-10 daily as Bran ch mg/5 mL needed for syrup Congestion /Allergies . bromphenira 2021-02 Yes [id number] 5mL Take 5 mL [facility] mine-pseudo 1-07 by mouth 4 it y of ephedrine-D 00:00: (four) [place] (BROMFED 00 times Medical DM) 2-30-10 daily as Bran ch mg/5 mL needed for syrup Congestion /Allergies . bromphenira 2021-02 Yes [id number] 5mL Take 5 mL [facility] mine-pseudo 1-07 by mouth 4 it y of ephedrine-D 00:00: (four) [place] (BROMFED 00 times Medical DM) 2-30-10 daily as Bran ch mg/5 mL needed for syrup Congestion /Allergies . bromphenira 2021-02 Yes [id number] 5mL Take 5 mL [facility] mine-pseudo 1-07 by mouth 4 it y of ephedrine-D 00:00: (four) [place] (BROMFED 00 times Medical DM) 2-30-10 daily as Bran ch mg/5 mL needed for syrup Congestion /Allergies . bromphenira 2021-02 Yes [id number] 5mL Take 5 mL [facility] mine-pseudo 1-07 by mouth 4 it y of ephedrine-D 00:00: (four) [place] (BROMFED 00 times Medical DM) 2-30-10 daily as Bran ch mg/5 mL needed for syrup Congestion /Allergies . bromphen2021-02 Yes [id number] 5mL Take 5 mL [facility] mine-pseudo 1-07 by mouth 4 it y of ephedrine-D 00:00: (four) [place] (BROMFED 00 times Medical DM) 2-30-10 daily as Bran ch mg/5 mL needed for syrup Congestion /Allergies . bromphenira 2021-02 Yes [id number] 5mL Take 5 mL [facility] mine-pseudo 1-07 by mouth 4 it y of ephedrine-D 00:00: (four) [place] (BROMFED 00 times Medical DM) 2-30-10 daily as Bran ch mg/5 mL needed for syrup Congestion /Allergies . bromphenira 2021-02 Yes [id number] 5mL Take 5 mL [facility] mine-pseudo 1-07 by mouth 4 it y of ephedrine-D 00:00: (four) [place] (BROMFED 00 times Medical DM) 2-30-10 daily as Bran ch mg/5 mL needed for syrup Congestion /Allergies . bromphenira 2021-02 Yes [id number] 5mL Take 5 mL [facility] mine-pseudo 1-07 by mouth 4 it y of ephedrine-D 00:00: (four) [place] (BROMFED 00 times Medical DM) 2-30-10 daily as Bran ch mg/5 mL needed for syrup Congestion /Allergies . bromphenira 2021-02 Yes [id number] 5mL Take 5 mL [facility] mine-pseudo 1-07 by mouth 4 it y of ephedrine-D 00:00: (four) [place] (BROMFED 00 times Medical DM) 2-30-10 daily as Bran ch mg/5 mL needed for syrup Congestion /Allergies . bromphenira 2021-02 Yes [id number] 5mL Take 5 mL [facility] mine-pseudo 1-07 by mouth 4 it y of ephedrine-D 00:00: (four) [place] (BROMFED 00 times Medical DM) 2-30-10 daily as Bran ch mg/5 mL needed for syrup Congestion /Allergies . bromphenira 2021-02 Yes [id number] 5mL Take 5 mL [facility] mine-pseudo 1-07 by mouth 4 it y of ephedrine-D 00:00: (four) [place] (BROMFED 00 times Medical DM) 2-30-10 daily as Bran ch mg/5 mL needed for syrup Congestion /Allergies . bromphenira 2021-02 Yes [id number] 5mL Take 5 mL [facility] mine-pseudo 1-07 by mouth 4 it y of ephedrine-D 00:00: (four) [place] (BROMFED 00 times Medical DM) 2-30-10 daily as Bran ch mg/5 mL needed for syrup Congestion /Allergies . bromphenira 2021-02 Yes [id number] 5mL Take 5 mL [facility] mine-pseudo 1-07 by mouth 4 it y of ephedrine-D 00:00: (four) [place] (BROMFED 00 times Medical DM) 2-30-10 daily as Bran ch mg/5 mL needed for syrup Congestion /Allergies . bromphenira 2021-02 Yes [id number] 5mL Take 5 mL [facility] mine-pseudo 1-07 by mouth 4 it y of ephedrine-D 00:00: (four) [place] (BROMFED 00 times Medical DM) 2-30-10 daily as Bran ch mg/5 mL needed for syrup Congestion /Allergies . bromphenira 2021-02 Yes [id number] 5mL Take 5 mL [facility] mine-pseudo 1-07 by mouth 4 it y of ephedrine-D 00:00: (four) [place] (BROMFED 00 times Medical DM) 2-30-10 daily as Bran ch mg/5 mL needed for syrup Congestion /Allergies . bromphenira 2021-02 Yes [id number] 5mL Take 5 mL [facility] mine-pseudo 1-07 by mouth 4 it y of ephedrine-D 00:00: (four) [place] (BROMFED 00 times Medical DM) 2-30-10 daily as Bran ch mg/5 mL needed for syrup Congestion /Allergies . bromphenira 2021-02 Yes [id number] 5mL Take 5 mL [facility] mine-pseudo 1-07 by mouth 4 it y of ephedrine-D 00:00: (four) [place] (BROMFED 00 times Medical DM) 2-30-10 daily as Bran ch mg/5 mL needed for syrup Congestion /Allergies . bromphenira 2021-02 Yes [id number] 5mL Take 5 mL [facility] mine-pseudo 1-07 by mouth 4 it y of ephedrine-D 00:00: (four) [place] (BROMFED 00 times Medical DM) 2-30-10 daily as Bran ch mg/5 mL needed for syrup Congestion /Allergies . bromphenira 2021-02 Yes [id number] 5mL Take 5 mL [facility] mine-pseudo 1-07 by mouth 4 it y of ephedrine-D 00:00: (four) [place] (BROMFED 00 times Medical DM) 2-30-10 daily as Bran ch mg/5 mL needed for syrup Congestion /Allergies . bromphenira 2021-02 Yes [id number] 5mL Take 5 mL [facility] mine-pseudo 1-07 by mouth 4 it y of ephedrine-D 00:00: (four) [place] (BROMFED 00 times Medical DM) 2-30-10 daily as Bran ch mg/5 mL needed for syrup Congestion /Allergies . bromphenira 2021-02 Yes [id number] 5mL Take 5 mL [facility] mine-pseudo 1-07 by mouth 4 it y of ephedrine-D 00:00: (four) [place] M (BROMFED 00 times Medical DM) 2-10 daily as Bran ch mg/5 mL needed for syrup Congestion /Allergies . ondansetron 2021-02- No [id number] 4mg Univers (ZOFRAN-ODT 02-13 ity of ) 15:30: 14:43 [place] disintegrat 00 :00 Medical ing tablet Branch 4 mg ondansetron 2021-02- No [id number] 4mg 4 mg, Univers (ZOFRAN-ODT 02-13 Oral, ity of ) 15:30: 14:43 ONCE, 1 [place] disintegrat 00 :00 dose, On Medi carlos ing tablet Ara Branch 4 mg 12/14/21 at 1030, Routine bromphenira 2021-02- No [id number] 5mL Take 5 mL [facility] mine-pseudo 02-13 by mouth 4 i ty of ephedrine-D 00:00: 05:59 (four) [place] M 2- 00 :00 times Medical mg/5 mL daily as Branch syrup needed for Congestion /Allergies for up to 5 days. oseltamivir 2021-02- No [id number] 75mg Take 1 [facility] (TAMIFLU) 02-13 capsule by ity of 75 mg 00:00: 05:59 mouth in [place] capsule 00 :00 the Medical morning Branch and 1 capsule in the evening. Do all this for 5 days. bromphenira 2021-02- No [id number] 5mL Take 5 mL [facility] mine-pseudo 02-13 by mouth 4 i ty of ephedrine-D 00:00: 05:59 (four) [place] M 230-10 00 :00 times Medical mg/5 mL daily as Branch syrup needed for Congestion /Allergies for up to 5 days. oseltamivir 2021-02- No [id number] 75mg Take 1 [facility] (TAMIFLU) 02-13 capsule by ity of 75 mg 00:00: 05:59 mouth in [place] capsule 00 :00 the Medical morning Branch and 1 capsule in the evening. Do all this for 5 days. oseltamivir 2021-02- No [id number] 75mg Take 1 [facility] (TAMIFLU) 02-13 capsule by ity of 75 mg 00:00: 05:59 mouth in [place] capsule 00 :00 the Medical morning Branch and 1 capsule in the evening. Do all this for 5 days. oseltamivir 2021-02- No [id number] 75mg Take 1 [facility] (TAMIFLU) 02-13 capsule by ity of 75 mg 00:00: 05:59 mouth in [place] capsule 00 :00 the Medical morning Branch and 1 capsule in the evening. Do all this for 5 days. bromphenira 2021-02- No [id number] 5mL Take 5 mL [facility] mine-pseudo 02-13 by mouth 4 i ty of ephedrine-D 00:00: 00:00 (four) [place] M 230-10 00 :00 times Medical mg/5 mL daily as Branch syrup needed for Congestion /Allergies for up to 5 days. amoxicillin 2021- No [id number] 1{tbl} Take 1 [facility] -clavulanat 8- 08-18 tablet by it y of e 00:00: 04:59 mouth in [place] (AUGMENTIN) 00 :00 the Medical 875-125 mg morning Branch per tablet and 1 tablet in the evening. Do all this for 10 days. amoxicillin 2021- No [id number] 1{tbl} Take 1 Univers -clavulanat 8-07 08-18 tablet by it y of e 00:00: 04:59 mouth in [place] (AUGMENTIN) 00 :00 the Medical 875-125 mg morning Branch per tablet and 1 tablet in the evening. Do all this for 10 days. polymyxin B 2021- No [id number] 1[drp] Place 1 Univers sulf-trimet 8- 08-15 Drop in ity of hoprim 00:00: 04:59 left eye [place] 10,000 00 :00 every 6 Medical unit- 1 (six) Branch mg/mL hours for ophthalmic 7 days. drops polymyxin B 2021- No [id number] 1[drp] Place 1 [facility] sulf-trimet 8-07 08-15 Drop in ity of hoprim 00:00: 04:59 left eye [place] 10,000 00 :00 every 6 Medical unit- 1 (six) Branch mg/mL hours for ophthalmic 7 days. drops predniSONE 2021- No [id number] 10mg Take 1 [facility] 10 mg 09-17 tablet by ity of tablet 00:00: 04:59 mouth in [place] 00 :00 the [facility] for 3 days. predniSONE 2021- No [id number] 10mg Take 1 Univers 10 mg 809-21 tablet by ity of tablet 00:00: 04:59 mouth in [place] 00 :00 [facility] for 3 days. penicillin 2021- No [id number] 1.210 U nivers g 08-23 07 ity of benzathine 16:15: 15:10 [place] (BICILLIN 00 :00 Medical L-A) Branch injection 1.2 Million Units penicillin 2021- No [id number] 1.210 1.2 U nivers g 08-23 07 Million ity of benzathine 16:15: 15:10 Units, [place] (BICILLIN 00 :00 Intramuscu Medi carlos L-A) lar, ONCE, Branch injection 1 dose, On 1.2 Million Wed Units 08/23/21 at 1115, WILY
Re ason for Anti-Infec tive: Documented Infection< br>Documen manfred Infection Site: HEENT
D uration of Therapy: Other (see Comments) bromphenira Yes [id number] 5mL Take 5 mL [facility] mine-pseudo 7-13 by mouth 4 it y of ephedrine-D 00:00: (four) [place] (BROMFED 00 times Medical DM) 2-30-10 daily as Bran ch mg/5 mL needed for syrup Congestion /Allergies . bromphenira Yes [id number] 5mL Take 5 mL [facility] mine-pseudo 7-13 by mouth 4 it y of ephedrine-D 00:00: (four) [place] (BROMFED 00 times Medical DM) 2-30-10 daily as Bran ch mg/5 mL needed for syrup Congestion /Allergies . bromphenira Yes [id number] 5mL Take 5 mL [facility] mine-pseudo 7-13 by mouth 4 it y of ephedrine-D 00:00: (four) [place] (BROMFED 00 times Medical DM) 2-30-10 daily as Bran ch mg/5 mL needed for syrup Congestion /Allergies . bromphenira 0 Yes [id number] 5mL Take 5 mL [facility] mine-pseudo 7-13 by mouth 4 it y of ephedrine-D 00:00: (four) [place] s[place] M (BROMFED 00 times Medical DM) 2-30-10 daily as Bran ch mg/5 mL needed for syrup Congestion /Allergies . bromphenira 2021- No [id number] 5mL Take 5 mL [facility] mine-pseudo 7-13 11-03 by mouth 4 i ty of ephedrine-D 00:00: 00:00 (four) [place] (BROMFED 00 :00 times Medical DM) 2-30-10 daily as Bran ch mg/5 mL needed for syrup Congestion /Allergies . ARIPiprazol Yes 2mg Take 2 mg U nivers e (ABILIFY) 4-03 by mouth ity of 2 mg tablet 15:45: daily. [address] ARIPiprazol Yes 2mg Take 2 mg U nivers e (ABILIFY) 4-03 by mouth ity of 2 mg tablet 15:45: daily. [address] ARIPiprazol Yes 2mg Take 2 mg U nivers e (ABILIFY) 4-03 by mouth ity of 2 mg tablet 15:45: daily. [address] ARIPiprazol 0 Yes 2mg Take 2 mg U nivers e (ABILIFY) 4-03 by mouth ity of 2 mg tablet 15:45: daily. [address] ARIPiprazol 0 Yes 2mg Take 2 mg U nivers e (ABILIFY) 4-03 by mouth ity of 2 mg tablet 15:45: daily. [address] ARIPiprazol 0 Yes 2mg Take 2 mg U nivers e (ABILIFY) 4-03 by mouth ity of 2 mg tablet 15:45: daily. [address] ARIPiprazol 0 Yes 2mg Take 2 mg U nivers e (ABILIFY) 4-03 by mouth ity of 2 mg tablet 15:45: daily. [address] ARIPiprazol 0 Yes 2mg Take 2 mg U nivers e (ABILIFY) 4-03 by mouth ity of 2 mg tablet 15:45: daily. [address] ARIPiprazol 0 Yes 2mg Take 2 mg U nivers e (ABILIFY) 4-03 by mouth ity of 2 mg tablet 15:45: daily. [address] ARIPiprazol 0 Yes 2mg Take 2 mg U nivers e (ABILIFY) 4-03 by mouth ity of 2 mg tablet 15:45: daily. [address] ARIPiprazol 0 Yes 2mg Take 2 mg U nivers e (ABILIFY) 4-03 by mouth ity of 2 mg tablet 15:45: daily. [address] ARIPiprazol 0 Yes 2mg Take 2 mg U nivers e (ABILIFY) 4-03 by mouth ity of 2 mg tablet 15:45: daily. [address] ARIPiprazol 0 Yes 2mg Take 2 mg U nivers e (ABILIFY) 4-03 by mouth ity of 2 mg tablet 15:45: daily. [address] ARIPiprazol Yes 2mg Take 2 mg U nivers e (ABILIFY) 4-03 by mouth ity of 2 mg tablet 15:45: daily. [address] ARIPiprazol 0 Yes 2mg Take 2 mg U nivers e (ABILIFY) 4-03 by mouth ity of 2 mg tablet 15:45: daily. [address] ARIPiprazol 0 Yes 2mg Take 2 mg U nivers e (ABILIFY) 4-03 by mouth ity of 2 mg tablet 15:45: daily. [address] ARIPiprazol 0 Yes 2mg Take 2 mg U nivers e (ABILIFY) 4-03 by mouth ity of 2 mg tablet 15:45: daily. [address] ARIPiprazol 0 Yes 2mg Take 2 mg U nivers e (ABILIFY) 4-03 by mouth ity of 2 mg tablet 15:45: daily. [address] ARIPiprazol Yes 2mg Take 2 mg U nivers e (ABILIFY) 4-03 by mouth ity of 2 mg tablet 15:45: daily. [address] ARIPiprazol Yes 2mg Take 2 mg U nivers e (ABILIFY) 4-03 by mouth ity of 2 mg tablet 15:45: daily. [address] ARIPiprazol Yes 2mg Take 2 mg U nivers e (ABILIFY) 4-03 by mouth ity of 2 mg tablet 15:45: daily. [address] ARIPiprazol Yes 2mg Take 2 mg U nivers e (ABILIFY) 4-03 by mouth ity of 2 mg tablet 15:45: daily. [address] ARIPiprazol Yes 2mg Take 2 mg U nivers e (ABILIFY) 4-03 by mouth ity of 2 mg tablet 15:45: daily. [address] ARIPiprazol Yes 2mg Take 2 mg U nivers e (ABILIFY) 4-03 by mouth ity of 2 mg tablet 15:45: daily. [address] ARIPiprazol Yes 2mg Take 2 mg U nivers e (ABILIFY) 4-03 by mouth ity of 2 mg tablet 15:45: daily. [address] ARIPiprazol Yes 2mg Take 2 mg U nivers e (ABILIFY) 4-03 by mouth ity of 2 mg tablet 15:45: daily. [address] ARIPiprazol Yes 2mg Take 2 mg U nivers e (ABILIFY) 4-03 by mouth ity of 2 mg tablet 15:45: daily. [address] ARIPiprazol Yes 2mg Take 2 mg U nivers e (ABILIFY) 4-03 by mouth ity of 2 mg tablet 15:45: daily. [address] ARIPiprazol Yes 2mg Take 2 mg U nivers e (ABILIFY) 4-03 by mouth ity of 2 mg tablet 15:45: daily. [address] ARIPiprazol Yes 2mg Take 2 mg U nivers e (ABILIFY) 4-03 by mouth ity of 2 mg tablet 15:45: daily. [address] ARIPiprazol Yes 2mg Take 2 mg U nivers e (ABILIFY) 4-03 by mouth ity of 2 mg tablet 15:45: daily. [address] aluminum Yes [id number] Apply to [facility] chloride 4-15 affected ity of (DRYSOL) 20 00:00: areas on [place] % external 00 palms Medical solution nightly as Branc h tolerated for one week then decrease to every other night aluminum Yes [id number] Apply to [facility] chloride 4-15 affected ity of (DRYSOL) 20 00:00: areas on [place] % external 00 palms Medical solution nightly as Branc h tolerated for one week then decrease to every other night aluminum Yes [id number] Apply to [facility] chloride 4-15 affected ity of (DRYSOL) 20 00:00: areas on [place] % external 00 palms Medical solution nightly as Branc h tolerated for one week then decrease to every other night aluminum Yes [id number] Apply to [facility] chloride 4-15 affected ity of (DRYSOL) 20 00:00: areas on [place] % external 00 palms Medical solution nightly as Branc h tolerated for one week then decrease to every other night aluminum Yes [id number] Apply to [facility] chloride 4-15 affected ity of (DRYSOL) 20 00:00: areas on [place] % external 00 palms Medical solution nightly as Branc h tolerated for one week then decrease to every other night aluminum Yes [id number] Apply to [facility] chloride 4-15 affected ity of (DRYSOL) 20 00:00: areas on [place] % external 00 palms Medical solution nightly as Branc h tolerated for one week then decrease to every other night aluminum 2019-0 Yes [id number] Apply to [facility] chloride 4-15 affected ity of (DRYSOL) 20 00:00: areas on [place] % external 00 palms Medical solution nightly as Branc h tolerated for one week then decrease to every other night aluminum 2019-0 Yes [id number] Apply to [facility] chloride 4-15 affected ity of (DRYSOL) 20 00:00: areas on [place] % external 00 palms Medical solution nightly as Branc h tolerated for one week then decrease to every other night aluminum 2019-0 Yes [id number] Apply to [facility] chloride 4-15 affected ity of (DRYSOL) 20 00:00: areas on [place] % external 00 palms Medical solution nightly as Branc h tolerated for one week then decrease to every other night aluminum 20190 Yes [id number] Apply to [facility] chloride 4-15 affected ity of (DRYSOL) 20 00:00: areas on [place] % external 00 palms Medical solution nightly as Branc h tolerated for one week then decrease to every other night aluminum 20190 Yes [id number] Apply to [facility] chloride 4-15 affected ity of (DRYSOL) 20 00:00: areas on [place] % external 00 palms Medical solution nightly as Branc h tolerated for one week then decrease to every other night aluminum 2019-0 Yes [id number] Apply to [facility] chloride 4-15 affected ity of (DRYSOL) 20 00:00: areas on [place] % external 00 palms Medical solution nightly as Branc h tolerated for one week then decrease to every other night aluminum 2019-0 Yes [id number] Apply to [facility] chloride 4-15 affected ity of (DRYSOL) 20 00:00: areas on [place] % external 00 palms Medical solution nightly as Branc h tolerated for one week then decrease to every other night aluminum 2019-0 Yes [id number] Apply to [facility] chloride 4-15 affected ity of (DRYSOL) 20 00:00: areas on [place] % external 00 palms Medical solution nightly as Branc h tolerated for one week then decrease to every other night aluminum 2019-0 Yes [id number] Apply to [facility] chloride 4-15 affected ity of (DRYSOL) 20 00:00: areas on [place] % external 00 palms Medical solution nightly as Branc h tolerated for one week then decrease to every other night aluminum 2019-0 Yes [id number] Apply to [facility] chloride 4-15 affected ity of (DRYSOL) 20 00:00: areas on [place] % external 00 palms Medical solution nightly as Branc h tolerated for one week then decrease to every other night aluminum 2019-0 Yes [id number] Apply to [facility] chloride 4-15 affected ity of (DRYSOL) 20 00:00: areas on [place] % external 00 palms Medical solution nightly as Branc h tolerated for one week then decrease to every other night aluminum 2018-0 Yes [id number] Apply to [facility] chloride 4-15 affected ity of (DRYSOL) 20 00:00: areas on [place] % external 00 palms Medical solution nightly as Branc h tolerated for one week then decrease to every other night aluminum 2019-0 Yes [id number] Apply to [facility] chloride 4-15 affected ity of (DRYSOL) 20 00:00: areas on [place] % external 00 palms Medical solution nightly as Branc h tolerated for one week then decrease to every other night aluminum 2019-0 Yes [id number] Apply to [facility] chloride 4-15 affected ity of (DRYSOL) 20 00:00: areas on [place] % external 00 palms Medical solution nightly as Branc h tolerated for one week then decrease to every other night aluminum 2019-0 Yes [id number] Apply to [facility] chloride 4-15 affected ity of (DRYSOL) 20 00:00: areas on [place] % external 00 palms Medical solution nightly as Branc h tolerated for one week then decrease to every other night aluminum 2019-0 Yes [id number] Apply to [facility] chloride 4-15 affected ity of (DRYSOL) 20 00:00: areas on [place] % external 00 palms Medical solution nightly as Branc h tolerated for one week then decrease to every other night aluminum 2019-0 Yes [id number] Apply to [facility] chloride 4-15 affected ity of (DRYSOL) 20 00:00: areas on [place] % external 00 palms Medical solution nightly as Branc h tolerated for one week then decrease to every other night aluminum 2019 Yes [id number] Apply to [facility] chloride 4-15 affected ity of (DRYSOL) 20 00:00: areas on [place] % external 00 palms Medical solution nightly as Branc h tolerated for one week then decrease to every other night aluminum Yes [id number] Apply to [facility] chloride 4-15 affected ity of (DRYSOL) 20 00:00: areas on [place] % external 00 palms Medical solution nightly as Branc h tolerated for one week then decrease to every other night aluminum Yes [id number] Apply to [facility] chloride 4-15 affected ity of (DRYSOL) 20 00:00: areas on [place] % external 00 palms Medical solution nightly as Branc h tolerated for one week then decrease to every other night aluminum Yes [id number] Apply to [facility] chloride 4-15 affected ity of (DRYSOL) 20 00:00: areas on [place] % external 00 palms Medical solution nightly as Branc h tolerated for one week then decrease to every other night aluminum Yes [id number] Apply to [facility] chloride 4-15 affected ity of (DRYSOL) 20 00:00: areas on [place] % external 00 palms Medical solution nightly as Branc h tolerated for one week then decrease to every other night aluminum Yes [id number] Apply to [facility] chloride 4-15 affected ity of (DRYSOL) 20 00:00: areas on [place] % external 00 [place] Medical solution nightly as Branc h tolerated for one week then decrease to every other night aluminum Yes [id number] Apply to [facility] chloride 4-15 affected ity of (DRYSOL) 20 00:00: areas on [place] % external 00 [place] Medical solution nightly as Branc h tolerated for one week then decrease to every other night aluminum Yes [id number] Apply to [facility] chloride 4-15 affected ity of (DRYSOL) 20 00:00: [place] external 00 [place] Medical solution nightly as Branc h tolerated for one week then decrease to every other night doxycycline 2019-0 Yes 100mg Take 1 [facility] vers 100 mg 2-20 capsule by ity of capsule 00:00: mouth 2 [place] 00 (two) Medical times Branch daily. clindamycin 2019-0 Yes Apply to [facility] edel -benzoyl 2-20 area(s) ity of peroxide 00:00: every [place] gel 00 morning. Medical Branch doxycycline 2019-0 Yes 100mg Take 1 [facility] vers 100 mg 2-20 capsule by ity of capsule 00:00: mouth 2 (two) Medical times Branch daily. clindamycin 2019-0 Yes Apply to Un edel -benzoyl 2-20 area(s) ity of peroxide 00:00: every [place] gel 00 morning. Medical Branch doxycycline 2019-0 Yes 100mg Take 1 [facility] vers 100 mg 2-20 capsule by ity of capsule 00:00: mouth 2 (two) Medical times Branch daily. clindamycin 2019-0 Yes Apply to Un edel -benzoyl 2-20 area(s) ity of peroxide 00:00: every [place] gel 00 morning. Medical Branch doxycycline 2019-0 Yes 100mg Take 1 [facility] vers 100 mg 2-20 capsule by ity of capsule 00:00: mouth 2 (two) Medical times Branch daily. clindamycin 2019-0 Yes Apply to Un edel -benzoyl 2-20 area(s) ity of peroxide 00:00: every [place] gel 00 morning. Medical Branch doxycycline 2019-0 Yes 100mg Take 1 [facility] vers 100 mg 2-20 capsule by ity of capsule 00:00: mouth 2 (two) Medical times Branch daily. clindamycin 2019-0 Yes Apply to Un edel -benzoyl 2-20 area(s) ity of peroxide 00:00: every [place] gel 00 morning. Medical Branch doxycycline 2019-0 Yes 100mg Take 1 [facility] vers 100 mg 2-20 capsule by ity of capsule 00:00: mouth 2 (two) Medical times Branch daily. clindamycin 2019-0 Yes Apply to Un edel -benzoyl 2-20 area(s) ity of peroxide 00:00: every [place] gel 00 morning. Medical Branch doxycycline 2019-0 Yes 100mg Take 1 [facility] vers 100 mg 2-20 capsule by ity of capsule 00:00: mouth 2 (two) Medical times Branch daily. clindamycin 2019-0 Yes Apply to Un edel -benzoyl 2-20 area(s) ity of peroxide 00:00: every [place] gel 00 morning. Medical Branch doxycycline 2019-0 Yes 100mg Take 1 [facility] vers 100 mg 2-20 capsule by ity of capsule 00:00: mouth 2 (two) Medical times Branch daily. clindamycin 2019-0 Yes Apply to Un edel -benzoyl 2-20 area(s) ity of peroxide 00:00: every [place] gel 00 morning. Medical Branch doxycycline 2019-0 Yes 100mg Take 1 [facility] vers 100 mg 2-20 capsule by ity of capsule 00:00: mouth 2 (two) Medical times Branch daily. clindamycin 2019-0 Yes Apply to Un edel -benzoyl 2-20 area(s) ity of peroxide 00:00: every [place] gel 00 morning. Medical Branch doxycycline 2019-0 Yes 100mg Take 1 [facility] vers 100 mg 2-20 capsule by ity of capsule 00:00: mouth 2 (two) Medical times Branch daily. clindamycin 2019-0 Yes Apply to [facility] edel -benzoyl 2-20 area(s) ity of peroxide 00:00: every [place] gel 00 morning. Medical Branch doxycycline 2019-0 Yes 100mg Take 1 [facility] vers 100 mg 2-20 capsule by ity of capsule 00:00: mouth 2 (two) Medical times Branch daily. clindamycin 2019-0 Yes Apply to Un edel -benzoyl 2-20 area(s) ity of peroxide 00:00: every [place] gel 00 morning. Medical Branch doxycycline 2019-0 Yes 100mg Take 1 [facility] vers 100 mg 2-20 capsule by ity of capsule 00:00: mouth 2 (two) Medical times Branch daily. clindamycin 2019-0 Yes Apply to Un edel -benzoyl 2-20 area(s) ity of peroxide 00:00: every [place] gel 00 morning. Medical Branch doxycycline 2019-0 Yes 100mg Take 1 [facility] vers 100 mg 2-20 capsule by ity of capsule 00:00: mouth 2 (two) Medical times Branch daily. clindamycin 2019-0 Yes Apply to Un edel -benzoyl 2-20 area(s) ity of peroxide 00:00: every [place] gel 00 morning. Medical Branch doxycycline 2019-0 Yes 100mg Take 1 [facility] vers 100 mg 2-20 capsule by ity of capsule 00:00: mouth 2 (two) Medical times Branch daily. clindamycin 2019-0 Yes Apply to Un edel -benzoyl 2-20 area(s) ity of peroxide 00:00: every [place] gel 00 morning. Medical Branch doxycycline 2019-0 Yes 100mg Take 1 [facility] vers 100 mg 2-20 capsule by ity of capsule 00:00: mouth 2 (two) Medical times Branch daily. clindamycin 2019-0 Yes Apply to Un edel -benzoyl 2-20 area(s) ity of peroxide 00:00: every [place] gel 00 morning. Medical Branch doxycycline 2019-0 Yes 100mg Take 1 [facility] vers 100 mg 2-20 capsule by ity of capsule 00:00: mouth 2 (two) Medical times Branch daily. clindamycin 2019-0 Yes Apply to Un edel -benzoyl 2-20 area(s) ity of peroxide 00:00: every [place] gel 00 morning. Medical Branch doxycycline 2019-0 Yes 100mg Take 1 [facility] vers 100 mg 2-20 capsule by ity of capsule 00:00: mouth 2 (two) Medical times Branch daily. clindamycin 2019-0 Yes Apply to Un edel -benzoyl 2-20 area(s) ity of peroxide 00:00: every [place] gel 00 morning. Medical Branch doxycycline 2019-0 Yes 100mg Take 1 [facility] vers 100 mg 2-20 capsule by ity of capsule 00:00: mouth 2 (two) Medical times Branch daily. clindamycin 2019-0 Yes Apply to Un edel -benzoyl 2-20 area(s) ity of peroxide 00:00: every [place] gel 00 morning. Medical Branch doxycycline 2019-0 Yes 100mg Take 1 [facility] vers 100 mg 2-20 capsule by ity of capsule 00:00: mouth 2 (two) Medical times Branch daily. clindamycin 2019-0 Yes Apply to Un eedl -benzoyl 2-20 area(s) ity of peroxide 00:00: every [place] gel 00 morning. Medical Branch doxycycline 2019-0 Yes 100mg Take 1 [facility] vers 100 mg 2-20 capsule by ity of capsule 00:00: mouth 2 (two) Medical times Branch daily. clindamycin 2019-0 Yes Apply to [facility] edel -benzoyl 2-20 area(s) ity of peroxide 00:00: every [place] gel 00 morning. Medical Branch doxycycline 2019-0 Yes 100mg Take 1 [facility] vers 100 mg 2-20 capsule by ity of capsule 00:00: mouth 2 (two) Medical times Branch daily. clindamycin 2019-0 Yes Apply to [facility] edel -benzoyl 2-20 area(s) ity of peroxide 00:00: every [place] gel 00 morning. Medical Branch doxycycline 2019-0 Yes 100mg Take 1 [facility] vers 100 mg 2-20 capsule by ity of capsule 00:00: mouth 2 (two) Medical times Branch daily. clindamycin 2019-0 Yes Apply to Un edel -benzoyl 2-20 area(s) ity of peroxide 00:00: every [place] gel 00 morning. Medical Branch doxycycline 2019-0 Yes 100mg Take 1 [facility] vers 100 mg 2-20 capsule by ity of capsule 00:00: mouth 2 (two) Medical times Branch daily. clindamycin 2019-0 Yes Apply to Un edel -benzoyl 2-20 area(s) ity of peroxide 00:00: every [place] gel 00 morning. Medical Branch doxycycline 2019-0 Yes 100mg Take 1 [facility] vers 100 mg 2-20 capsule by ity of capsule 00:00: mouth 2 (two) Medical times Branch daily. clindamycin 2019-0 Yes Apply to Un edel -benzoyl 2-20 area(s) ity of peroxide 00:00: every [place] gel 00 morning. Medical Branch doxycycline 2019-0 Yes 100mg Take 1 [facility] vers 100 mg 2-20 capsule by ity of capsule 00:00: mouth 2 (two) Medical times Branch daily. clindamycin 2019-0 Yes Apply to Un edel -benzoyl 2-20 area(s) ity of peroxide 00:00: every [place] gel 00 morning. Medical Branch doxycycline 2019-0 Yes 100mg Take 1 [facility] vers 100 mg 2-20 capsule by ity of capsule 00:00: mouth 2 (two) Medical times Branch daily. clindamycin 2019-0 Yes Apply to Un edel -benzoyl 2-20 area(s) ity of peroxide 00:00: every [place] gel 00 morning. Medical Branch doxycycline 2019-0 Yes 100mg Take 1 [facility] vers 100 mg 2-20 capsule by ity of capsule 00:00: mouth 2 (two) Medical times Branch daily. clindamycin 2019-0 Yes Apply to Un edel -benzoyl 2-20 area(s) ity of peroxide 00:00: every [place] gel 00 morning. Medical Branch doxycycline 2019-0 Yes 100mg Take 1 [facility] vers 100 mg 2-20 capsule by ity of capsule 00:00: mouth 2 00 (two) Medical times Branch daily. clindamycin 2019-0 Yes Apply to Un edel -benzoyl 2-20 area(s) ity of peroxide 00:00: every [place] gel 00 morning. Medical Branch doxycycline 2019-0 Yes 100mg Take 1 [facility] vers 100 mg 2-20 capsule by ity of capsule 00:00: mouth 2 (two) Medical times Branch daily. clindamycin 2019-0 Yes Apply to Un edel -benzoyl 2-20 area(s) ity of peroxide 00:00: every [place] gel 00 morning. Medical Branch doxycycline 2019-0 Yes 100mg Take 1 [facility] vers 100 mg 2-20 capsule by ity of capsule 00:00: mouth 2 (two) Medical times Branch daily. clindamycin 2019-0 Yes Apply to [facility] edel -benzoyl 2-20 area(s) ity of peroxide 00:00: every [place] gel 00 morning. Medical Branch doxycycline 2019-0 Yes 100mg Take 1 [facility] vers 100 mg 2-20 capsule by ity of capsule 00:00: mouth 2 (two) Medical times Branch daily. clindamycin 2019-0 Yes Apply to [facility] edel -benzoyl 2-20 area(s) ity of peroxide 00:00: every [place] gel 00 morning. Medical Branch FLUoxetine 2018- Yes [facility] 20 mg 2-04 ity of capsule 00:00: [place] 00 Medical [facility] FLUoxetine 2018- Yes [facility] 20 mg 2-04 ity of capsule 00:00: [place] 00 [facility] Branch FLUoxetine 2018- Yes [facility] 20 mg 2-04 ity of capsule 00:00: [place] 00 [facility] Branch FLUoxetine 2018- Yes [facility] 20 mg 2-04 ity of capsule 00:00: [place] 00 [facility] Branch FLUoxetine 2018- Yes [facility] 20 mg 2-04 ity of capsule 00:00: [place] 00 [facility] Branch FLUoxetine 2018- Yes [facility] 20 mg 2-04 ity of capsule 00:00: [place] 00 [facility] Branch FLUoxetine 2018-1 Yes [facility] 20 mg 2-04 ity of capsule 00:00: [place] 00 [facility] Branch FLUoxetine 2018- Yes [facility] 20 mg 2-04 ity of capsule 00:00: [place] [facility] FLUoxetine 2018-1 Yes [facility] 20 mg 2-04 ity of capsule 00:00: [place] [facility] FLUoxetine 2018- Yes [facility] 20 mg 2-04 ity of capsule 00:00: [place] [facility] FLUoxetine 2018- Yes [facility] 20 mg 2-04 ity of capsule 00:00: [place] [facility] FLUoxetine 2018- Yes [facility] 20 mg 2-04 ity of capsule 00:00: [place] [facility] FLUoxetine 2018- Yes [facility] 20 mg 2-04 ity of capsule 00:00: [place] [facility] FLUoxetine 2018- Yes [facility] 20 mg 2-04 ity of capsule 00:00: [place] [id number] Medical Branch FLUoxetine 2018- Yes [facility] 20 mg 2-04 ity of capsule 00:00: [place] [id number] Medical Branch FLUoxetine 2017- Yes [facility] 20 mg 2-04 ity of capsule 00:00: [place] [address] Medical Branch FLUoxetine 2018- Yes [facility] 20 mg 2-04 ity of capsule 00:00: [place] [facility] FLUoxetine 2018- Yes [facility] 20 mg 2-04 ity of capsule 00:00: [place] [facility] FLUoxetine 2018- Yes [facility] 20 mg 2-04 ity of capsule 00:00: [place] [facility] FLUoxetine 2018- Yes [facility] 20 mg 2-04 ity of capsule 00:00: [place] [facility] FLUoxetine 2018- Yes [facility] 20 mg 2-04 ity of capsule 00:00: [place] [address] Medical Branch FLUoxetine 2018- Yes [facility] 20 mg 2-04 ity of capsule 00:00: [place] [facility] FLUoxetine 2018- Yes [facility] 20 mg 2-04 ity of capsule 00:00: [place] [facility] FLUoxetine 2018- Yes [facility] 20 mg 2-04 ity of capsule 00:00: [place] [facility] FLUoxetine 2018- Yes [facility] 20 mg 2-04 ity of capsule 00:00: [place] [facility] FLUoxetine 2018- Yes [facility] 20 mg 2-04 ity of capsule 00:00: [place] [facility] FLUoxetine 2018- Yes [facility] 20 mg 2-04 ity of capsule 00:00: [place] [address] Medical Branch FLUoxetine 2018- Yes [facility] 20 mg 2-04 ity of capsule 00:00: [place] [facility] FLUoxetine 2018- Yes [facility] 20 mg 2-04 ity of capsule 00:00: [place] 00 [facility] Branch FLUoxetine 2018- Yes [facility] 20 mg 2-04 ity of capsule 00:00: [place] 00 [facility] FLUoxetine 2018- Yes [facility] 20 mg 2-04 ity of capsule 00:00: [place] 00 Medical Branch Immunizations Ordered Filled Immunization Date Status Comments [facility] Immunization Name Name SARS-COV-2 COVID-19 2021-04-29 Completed Unive rsity of PFIZER ROSELIA-SUCROSE 00:00:00 [place] [facility] VACCINE (LEO TOP) Branch SARS-COV-2 COVID-19 2021-04-29 Completed Unive rsity of PFIZER ROESLIA-SUCROSE 00:00:00 [place] [facility] VACCINE (LEO TOP) Branch SARS-COV-2 COVID-19 2021-04-29 Completed Unive rsity of PFIZER ROSELIA-SUCROSE 00:00:00 [place] [facility] VACCINE (LEO TOP) Branch SARS-COV-2 COVID-19 2021-04-29 Completed Unive rsity of PFIZER ROSELIA-SUCROSE 00:00:00 [place] [facility] VACCINE (LEO TOP) Branch SARS-COV-2 COVID-19 2021-04-29 Completed Unive rsity of PFIZER ROSELIA-SUCROSE 00:00:00 [place] [facility] VACCINE (LEO TOP) Branch SARS-COV-2 COVID-19 2021-04-29 Completed Unive rsity of PFIZER ROSELIA-SUCROSE 00:00:00 [place] [facility] VACCINE (LEO TOP) Branch SARS-COV-2 COVID-19 2021-04-29 Completed Unive rsity of PFIZER ROSELIA-SUCROSE 00:00:00 [place] [facility] VACCINE (LEO TOP) Branch SARS-COV-2 COVID-19 2021-04-29 Completed Unive rsity of PFIZER ROSELIA-SUCROSE 00:00:00 [place] [facility] VACCINE (LEO TOP) Branch SARS-COV-2 COVID-19 2021-04-29 Completed Unive rsity of PFIZER ROSELIA-SUCROSE 00:00:00 [place] [facility] VACCINE (LEO TOP) Branch SARS-COV-2 COVID-19 2021-04-29 Completed Unive rsity of PFIZER ROSELIA-SUCROSE 00:00:00 [place] [facility] VACCINE (LEO TOP) Branch SARS-COV-2 COVID-19 2021-04-29 Completed Unive rsity of PFIZER ROSELIA-SUCROSE 00:00:00 [place] [facility] VACCINE (LEO TOP) Branch SARS-COV-2 COVID-19 2021-04-29 Completed Unive rsity of PFIZER ROSELIA-SUCROSE 00:00:00 [place] [facility] VACCINE (LEO TOP) Branch SARS-COV-2 COVID-19 2021-04-29 Completed Unive rsity of PFIZER ROSELIA-SUCROSE 00:00:00 [place] [facility] VACCINE (LEO TOP) Branch SARS-COV-2 COVID-19 2021-04-29 Completed Unive rsity of PFIZER ROSELIA-SUCROSE 00:00:00 [place] [facility] VACCINE (LEO TOP) Branch SARS-COV-2 COVID-19 2021-04-29 Completed Unive rsity of PFIZER ROSELIA-SUCROSE 00:00:00 [place] [facility] VACCINE (LEO TOP) Branch SARS-COV-2 COVID-19 2021-04-29 Completed Unive rsity of PFIZER ROSELIA-SUCROSE 00:00:00 [place] [facility] VACCINE (LEO TOP) Branch SARS-COV-2 COVID-19 2021-04-29 Completed Unive rsity of PFIZER ROSELIA-SUCROSE 00:00:00 [place] [facility] VACCINE (LEO TOP) Branch SARS-COV-2 COVID-19 2021-04-29 Completed Unive rsity of PFIZER ROSELIA-SUCROSE 00:00:00 [place] [facility] VACCINE (LEO TOP) Branch SARS-COV-2 COVID-19 2021-04-29 Completed Unive rsity of PFIZER ROSELIA-SUCROSE 00:00:00 [place] [facility] VACCINE (LOE TOP) Branch SARS-COV-2 COVID-19 2021-04-29 Completed Unive rsity of PFIZER ROSELIA-SUCROSE 00:00:00 [place] [facility] VACCINE (LEO TOP) Branch SARS-COV-2 COVID-19 2021-04-29 Completed Unive rsity of PFIZER ROSELIA-SUCROSE 00:00:00 [place] [facility] VACCINE (LEO TOP) Branch SARS-COV-2 COVID-19 2021-04-29 Completed Unive rsity of PFIZER ROSELIA-SUCROSE 00:00:00 [place] [facility] VACCINE (LEO TOP) Branch SARS-COV-2 COVID-19 2021-04-29 Completed Unive rsity of PFIZER ROSELIA-SUCROSE 00:00:00 [place] [facility] VACCINE (LEO TOP) Branch SARS-COV-2 COVID-19 2021-04-29 Completed Unive rsity of PFIZER ROSELIA-SUCROSE 00:00:00 [place] [facility] VACCINE (LEO TOP) Branch SARS-COV-2 COVID-19 2021-04-29 Completed Unive rsity of PFIZER ROSELIA-SUCROSE 00:00:00 [place] [facility] VACCINE (LEO TOP) Branch SARS-COV-2 COVID-19 2021-04-29 Completed Unive rsity of PFIZER ROSELIA-SUCROSE 00:00:00 [place] [facility] VACCINE (LEO TOP) Branch SARS-COV-2 COVID-19 2021-04-29 Completed Unive rsity of PFIZER ROSELIA-SUCROSE 00:00:00 [place] [facility] VACCINE (LEO TOP) Branch SARS-COV-2 COVID-19 2021-04-29 Completed Unive rsity of PFIZER ROSELIA-SUCROSE 00:00:00 [place] [facility] VACCINE (LEO TOP) Branch SARS-COV-2 COVID-19 2021-04-29 Completed Unive rsity of PFIZER ROSELIA-SUCROSE 00:00:00 [place] [facility] VACCINE (LEO TOP) Branch SARS-COV-2 COVID-19 2021-04-29 Completed Unive rsity of PFIZER ROSELIA-SUCROSE 00:00:00 [place] [facility] VACCINE (LEO TOP) Branch SARS-COV-2 COVID-19 2021-04-29 Completed Unive rsity of PFIZER ROSELIA-SUCROSE 00:00:00 [place] [facility] VACCINE (LEO TOP) Branch SARS-COV-2 COVID-19 2020-05-25 Completed Unive rsity of PFIZER VACCINE 00:00:00 [place] [facility] Branch SARS-COV-2 COVID-19 2020-05-25 Completed Unive rsity of PFIZER VACCINE 00:00:00 [place] [facility] SARS-COV-2 COVID-19 2020-05-25 Completed Unive rsity of PFIZER VACCINE 00:00:00 [place] [facility] Branch SARS-COV-2 COVID-19 2020-05-25 Completed Unive rsity of PFIZER VACCINE 00:00:00 [place] [facility] SARS-COV-2 COVID-19 2020-05-25 Completed Unive rsity of PFIZER VACCINE 00:00:00 [place] [facility] Branch SARS-COV-2 COVID-19 2020-05-25 Completed Unive rsity of PFIZER VACCINE 00:00:00 [place] [facility] Branch SARS-COV-2 COVID-19 2020-05-25 Completed Unive rsity of PFIZER VACCINE 00:00:00 [place] [facility] Branch SARS-COV-2 COVID-19 2020-05-25 Completed Unive rsity of PFIZER VACCINE 00:00:00 [place] [facility] Branch SARS-COV-2 COVID-19 2020-05-25 Completed Unive rsity of PFIZER VACCINE 00:00:00 [facility] SARS-COV-2 COVID-19 2020-05-25 Completed Unive rsity of PFIZER VACCINE 00:00:00 [place] [facility] Branch SARS-COV-2 COVID-19 2020-05-25 Completed Unive rsity of PFIZER VACCINE 00:00:00 [facility] SARS-COV-2 COVID-19 2020-05-25 Completed Unive rsity of PFIZER VACCINE 00:00:00 [place] [facility] Branch SARS-COV-2 COVID-19 2020-05-25 Completed Unive rsity of PFIZER VACCINE 00:00:00 [facility] SARS-COV-2 COVID-19 2020-05-25 Completed Unive rsity of PFIZER VACCINE 00:00:00 [facility] SARS-COV-2 COVID-19 2020-05-25 Completed Unive rsity of PFIZER VACCINE 00:00:00 [facility] SARS-COV-2 COVID-19 2020-05-25 Completed Unive rsity of PFIZER VACCINE 00:00:00 [place] [facility] Branch SARS-COV-2 COVID-19 2020-05-25 Completed Unive rsity of PFIZER VACCINE 00:00:00 [facility] SARS-COV-2 COVID-19 2020-05-25 Completed Unive rsity of PFIZER VACCINE 00:00:00 [facility] SARS-COV-2 COVID-19 2020-05-25 Completed Unive rsity of PFIZER VACCINE 00:00:00 [facility] SARS-COV-2 COVID-19 2020-05-25 Completed Unive rsity of PFIZER VACCINE 00:00:00 [place] [facility] Branch SARS-COV-2 COVID-19 2020-05-25 Completed Unive rsity of PFIZER VACCINE 00:00:00 [facility] SARS-COV-2 COVID-19 2020-05-25 Completed Unive rsity of PFIZER VACCINE 00:00:00 [facility] SARS-COV-2 COVID-19 2020-05-25 Completed Unive rsity of PFIZER VACCINE 00:00:00 [facility] SARS-COV-2 COVID-19 2020-05-25 Completed Unive rsity of PFIZER VACCINE 00:00:00 [place] [facility] SARS-COV-2 COVID-19 2020-05-25 Completed Unive rsity of PFIZER VACCINE 00:00:00 [place] [facility] Branch SARS-COV-2 COVID-19 2020-05-25 Completed Unive rsity of PFIZER VACCINE 00:00:00 [place] [facility] Branch SARS-COV-2 COVID-19 2020-05-25 Completed Unive rsity of PFIZER VACCINE 00:00:00 [place] [facility] Branch SARS-COV-2 COVID-19 2020-05-25 Completed Unive rsity of PFIZER VACCINE 00:00:00 [place] [facility] Branch SARS-COV-2 COVID-19 2020-05-25 Completed Unive rsity of PFIZER VACCINE 00:00:00 [place] [facility] Branch SARS-COV-2 COVID-19 2020-05-25 Completed Unive rsity of PFIZER VACCINE 00:00:00 [place] [facility] Branch SARS-COV-2 COVID-19 2020-05-25 Completed Unive rsity of PFIZER VACCINE 00:00:00 [place] [facility] Branch SARS-COV-2 COVID-19 2020-05-04 Completed Unive rsity of PFIZER VACCINE 00:00:00 [place] [facility] Branch SARS-COV-2 COVID-19 2020-05-04 Completed Unive rsity of PFIZER VACCINE 00:00:00 [place] [facility] Branch SARS-COV-2 COVID-19 2020-05-04 Completed Unive rsity of PFIZER VACCINE 00:00:00 [place] [facility] Branch SARS-COV-2 COVID-19 2020-05-04 Completed Unive rsity of PFIZER VACCINE 00:00:00 [place] [facility] Branch SARS-COV-2 COVID-19 2020-05-04 Completed Unive rsity of PFIZER VACCINE 00:00:00 [place] [facility] Branch SARS-COV-2 COVID-19 2020-05-04 Completed Unive rsity of PFIZER VACCINE 00:00:00 [place] [facility] Branch SARS-COV-2 COVID-19 2020-05-04 Completed Unive rsity of PFIZER VACCINE 00:00:00 [facility] SARS-COV-2 COVID-19 2020-05-04 Completed Unive rsity of PFIZER VACCINE 00:00:00 [place] [facility] Branch SARS-COV-2 COVID-19 2020-05-04 Completed Unive rsity of PFIZER VACCINE 00:00:00 [place] [facility] Branch SARS-COV-2 COVID-19 2020-05-04 Completed Unive rsity of PFIZER VACCINE 00:00:00 [place] [facility] Branch SARS-COV-2 COVID-19 2020-05-04 Completed Unive rsity of PFIZER VACCINE 00:00:00 [place] [facility] Branch SARS-COV-2 COVID-19 2020-05-04 Completed Unive rsity of PFIZER VACCINE 00:00:00 [place] [facility] Branch SARS-COV-2 COVID-19 2020-05-04 Completed Unive rsity of PFIZER VACCINE 00:00:00 [place] [facility] Branch SARS-COV-2 COVID-19 2020-05-04 Completed Unive rsity of PFIZER VACCINE 00:00:00 [place] [facility] Branch SARS-COV-2 COVID-19 2020-05-04 Completed Unive rsity of PFIZER VACCINE 00:00:00 [facility] Branch SARS-COV-2 COVID-19 2020-05-04 Completed Unive rsity of PFIZER VACCINE 00:00:00 [place] [facility] Branch SARS-COV-2 COVID-19 2020-05-04 Completed Unive rsity of PFIZER VACCINE 00:00:00 [facility] Branch SARS-COV-2 COVID-19 2020-05-04 Completed Unive rsity of PFIZER VACCINE 00:00:00 [facility] Branch SARS-COV-2 COVID-19 2020-05-04 Completed Unive rsity of PFIZER VACCINE 00:00:00 [facility] Branch SARS-COV-2 COVID-19 2020-05-04 Completed Unive rsity of PFIZER VACCINE 00:00:00 [facility] Branch SARS-COV-2 COVID-19 2020-05-04 Completed Unive rsity of PFIZER VACCINE 00:00:00 [facility] Branch SARS-COV-2 COVID-19 2020-05-04 Completed Unive rsity of PFIZER VACCINE 00:00:00 [facility] Branch SARS-COV-2 COVID-19 2020-05-04 Completed Unive rsity of PFIZER VACCINE 00:00:00 [facility] Branch SARS-COV-2 COVID-19 2020-05-04 Completed Unive rsity of PFIZER VACCINE 00:00:00 [facility] Branch SARS-COV-2 COVID-19 2020-05-04 Completed Unive rsity of PFIZER VACCINE 00:00:00 [facility] SARS-COV-2 COVID-19 2020-05-04 Completed Unive rsity of PFIZER VACCINE 00:00:00 [facility] SARS-COV-2 COVID-19 2020-05-04 Completed Unive rsity of PFIZER VACCINE 00:00:00 [facility] SARS-COV-2 COVID-19 2020-05-04 Completed Unive rsity of PFIZER VACCINE 00:00:00 [facility] SARS-COV-2 COVID-19 2020-05-04 Completed Unive rsity of PFIZER VACCINE 00:00:00 [facility] SARS-COV-2 COVID-19 2020-05-04 Completed Unive rsity of PFIZER VACCINE 00:00:00 [facility] SARS-COV-2 COVID-19 2020-05-04 Completed Unive rsity of PFIZER VACCINE 00:00:00 [facility] Vital Signs Vital Name Observation Time Observation Value Comments Source Systolic blood 2022-08-19 19:14:00 131 mm[Hg] Univer sity of pressure [facility] Diastolic blood 2022-08-19 19:14:00 85 mm[Hg] Unive rsity of pressure [facility] Heart rate 2022-08-19 19:14:00 93 /min [facility] Body temperature 2022-08-19 19:14:00 36.94 [facility] Respiratory rate 2022-08-19 19:14:00 17 /[facility] Body height 2022-08-19 19:14:00 165.1 cm [facility] Body weight 2022-08-19 19:14:00 80.825 kg [facility] BMI 2022-08-19 19:14:00 29.65 kg/m2 [facility] Oxygen saturation in 2022-08-19 19:14:00 97 /min [facility] Arterial blood by [facility] Pulse oximetry Branch Systolic blood 2022-07-20 16:02:00 115 mm[Hg] Univer sity of pressure [facility] Diastolic blood 2022-07-20 16:02:00 85 mm[Hg] [facility] of pressure [place] [facility] Branch Heart rate 2022-07-20 16:02:00 89 /min [facility] Body temperature 2022-07-20 16:02:00 36.94 Ivone [facility] Respiratory rate 2022-07-20 16:02:00 16 /min [facility] Body weight 2022-07-20 16:02:00 83.416 kg [facility] Oxygen saturation in 2022-07-20 16:02:00 97 /min [facility] by [place] [employer] [facility] Pulse oximetry Branch Systolic blood 2022-07-11 16:03:00 130 mm[Hg] [facility] Diastolic blood 2022-07-11 16:03:00 79 mm[Hg] [facility] Heart rate 2022-07-11 16:00:00 95 /min [facility] Body temperature 2022-07-11 16:00:00 36.83 Ivone [facility] Respiratory rate 2022-07-11 16:00:00 17 /min [facility] Body height 2022-07-11 16:00:00 165.1 cm [facility] Body weight 2022-07-11 16:00:00 81.965 kg [facility] BMI 2022-07-11 16:00:00 30.07 kg/m2 [facility] Oxygen saturation in 2022-07-11 16:00:00 96 /min [facility] Arterial blood by [facility] Pulse oximetry Branch Systolic blood 2022-06-02 17:13:00 113 mm[Hg] [facility] Diastolic blood 2022-06-02 17:13:00 77 mm[Hg] [facility] Heart rate 2022-06-02 17:13:00 72 /min [facility] Body temperature 2022-06-02 17:13:00 36.28 Ivone [facility] Respiratory rate 2022-06-02 17:13:00 18 /min [facility] Body height 2022-06-02 17:13:00 167.6 cm [facility] Body weight 2022-06-02 17:13:00 84.868 kg [facility] BMI 2022-06-02 17:13:00 30.20 kg/m2 [facility] Oxygen saturation in 2022-06-02 17:13:00 98 /min [facility] [place] [facility] Pulse oximetry [facility] Body height 2022-06-01 14:02:00 165.1 cm [facility] Body weight 2022-06-01 14:02:00 85.004 kg [facility] BMI 2022-06-01 14:02:00 31.18 kg/m2 [facility] Systolic blood 2022-05-10 20:12:00 134 mm[Hg] [facility] Diastolic blood 2022-05-10 20:12:00 82 mm[Hg] [facility] Heart rate 2022-05-10 20:10:00 108 /min [facility] Body temperature 2022-05-10 20:10:00 36.89 Ivone [facility] Respiratory rate 2022-05-10 20:10:00 16 /min [facility] Body height 2022-05-10 20:10:00 165.1 cm [facility] Body weight 2022-05-10 20:10:00 85.548 kg [facility] BMI 2022-05-10 20:10:00 31.38 kg/m2 [facility] Oxygen saturation in 2022-05-10 20:10:00 99 /min [facility] [place] [facility] Pulse oximetry [facility] Systolic blood 2022-05-04 00:58:00 148 mm[Hg] [facility] Diastolic blood 2022-05-04 00:58:00 80 mm[Hg] [facility] Heart rate 2022-05-04 00:58:00 98 /min [facility] Body temperature 2022-05-04 00:58:00 37.28 Ivone [facility] Respiratory rate 2022-05-04 00:58:00 24 /min [facility] Body height 2022-05-04 00:58:00 165.1 cm [facility] Body weight 2022-05-04 00:58:00 85.049 kg [facility] BMI 2022-05-04 00:58:00 31.20 kg/m2 [facility] Oxygen saturation in 2022-05-04 00:58:00 99 /min [facility] Arterial blood by [facility] Pulse oximetry Branch Systolic blood 2022-04-26 14:51:00 139 mm[Hg] [facility] Diastolic blood 2022-04-26 14:51:00 88 mm[Hg] [facility] Heart rate 2022-04-26 14:50:00 112 /min [facility] Body temperature 2022-04-26 14:50:00 38.11 Ivone [facility] Respiratory rate 2022-04-26 14:50:00 16 /min [facility] Body height 2022-04-26 14:50:00 165.1 cm [facility] Body weight 2022-04-26 14:50:00 86.501 kg [facility] BMI 2022-04-26 14:50:00 31.73 kg/m2 [facility] Oxygen saturation in 2022-04-26 14:50:00 96 /min [facility] Arterial blood by [facility] Pulse oximetry Branch Systolic blood 2022-04-12 19:10:00 129 mm[Hg] [facility] Diastolic blood 2022-04-12 19:10:00 84 mm[Hg] [facility] Heart rate 2022-04-12 19:10:00 90 /min [facility] Body temperature 2022-04-12 19:10:00 37.06 Ivone [facility] Respiratory rate 2022-04-12 19:10:00 18 /min [facility] Body height 2022-04-12 19:10:00 165.1 cm [facility] Body weight 2022-04-12 19:10:00 85.503 kg [facility] BMI 2022-04-12 19:10:00 31.37 kg/m2 [facility] Oxygen saturation in 2022-04-12 19:10:00 99 /min [facility] Arterial blood by [facility] Pulse oximetry Branch Systolic blood 2021-12-18 16:02:00 127 mm[Hg] [facility] Diastolic blood 2021-12-18 16:02:00 85 mm[Hg] [facility] Heart rate 2021-12-18 16:02:00 82 /min [facility] Body temperature 2021-12-18 16:02:00 36.44 Ivone [facility] Respiratory rate 2021-12-18 16:02:00 18 /min [facility] Body height 2021-12-18 16:02:00 165.2 cm [facility] Body weight 2021-12-18 16:02:00 83.008 kg [facility] BMI 2021-12-18 16:02:00 30.43 kg/m2 [facility] Oxygen saturation in 2021-12-18 16:02:00 98 /min [facility] Arterial blood by [facility] Pulse oximetry Branch Systolic blood 2021-12-14 14:35:00 123 mm[Hg] [facility] Diastolic blood 2021-12-14 14:35:00 69 mm[Hg] [facility] Heart rate 2021-12-14 14:35:00 109 /min [facility] Body temperature 2021-12-14 14:35:00 37 Ivone [facility] Respiratory rate 2021-12-14 14:35:00 16 /min [facility] Body weight 2021-12-14 14:35:00 83.371 kg [facility] Oxygen saturation in 2021-12-14 14:35:00 98 /min [facility] Arterial blood by [facility] Pulse oximetry Branch Systolic blood 2021-09-17 17:33:00 119 mm[Hg] [facility] Diastolic blood 2021-09-17 17:33:00 84 mm[Hg] [facility] Heart rate 2021-09-17 17:33:00 96 /min [facility] Body temperature 2021-09-17 17:33:00 37.11 Ivone [facility] Respiratory rate 2021-09-17 17:33:00 16 /min [facility] Body height 2021-09-17 17:33:00 165.1 cm [facility] Body weight 2021-09-17 17:33:00 83.008 kg [facility] BMI 2021-09-17 17:33:00 30.45 kg/m2 [facility] Oxygen saturation in 2021-09-17 17:33:00 98 /min [facility] [place] [employer] [facility] Pulse oximetry Branch Systolic blood 2021-09-07 17:21:00 129 mm[Hg] [facility] Diastolic blood 2021-09-07 17:21:00 83 mm[Hg] [facility] Heart rate 2021-09-07 17:21:00 72 /min [facility] Body temperature 2021-09-07 17:21:00 36.89 Ivone [facility] Respiratory rate 2021-09-07 17:21:00 20 /min [facility] Body height 2021-09-07 17:21:00 165.1 cm [facility] Body weight 2021-09-07 17:21:00 81.874 kg [facility] BMI 2021-09-07 17:21:00 30.04 kg/m2 [facility] Oxygen saturation in 2021-09-07 17:21:00 98 /min [facility] [place] [employer] [facility] Pulse oximetry Branch Systolic blood 2021-08-23 14:52:00 127 mm[Hg] [facility] Diastolic blood 2021-08-23 14:52:00 80 mm[Hg] [facility] Heart rate 2021-08-23 14:52:00 93 /min [facility] Body temperature 2021-08-23 14:52:00 38.17 Ivone [facility] Respiratory rate 2021-08-23 14:52:00 17 /min [facility] Body height 2021-08-23 14:52:00 165.1 cm [facility] Body weight 2021-08-23 14:52:00 81.647 kg [facility] BMI 2021-08-23 14:52:00 29.95 kg/m2 [facility] Oxygen saturation in 2021-08-23 14:52:00 100 /min [facility] Arterial blood by [facility] Pulse oximetry [place] Procedures Procedure Date / Time Performing Clinician Source Performed THROAT CULTURE 2022-08-19 19:57:00 Hooper [facility] GC & CHLAMYDIA AMPLIFIED 2022-08-19 19:57:00 Christiano [facility] POCT MOLECULAR FLU 2022-08-19 19:36:00 Unknown, Attending [facility] POCT SARS-COV-2 ANTIGEN 2022-08-19 19:33:00 Christiano [facility] ([facility]) [facility] POCT MOLECULAR STREP 2022-08-19 19:16:00 Unknown, Attending [facility] POCT MOLECULAR STREP 2022-06-02 17:25:00 Unknown, Attending [facility] XR CHEST 2 VW 2022-05-04 01:26:00 Olaf [facility] RAPID STREP SCREEN FOR 2022-05-04 01:21:00 Tracy Babin [facility] GROUP A Medical Branch CONSENT/REFUSAL FOR 2022-05-04 00:54:30 Doctor Unassigned, [facility] DIAGNOSIS AND TREATMENT [facility] [place] POCT SARS-COV-2 ANTIGEN 2022-04-26 15:04:00 Sathya Vasquez [facility] ([facility]) [facility] POCT MOLECULAR FLU 2022-04-26 14:58:00 Unknown, Attending [facility] POCT MOLECULAR STREP 2022-04-26 14:56:00 Unknown, Attending [facility] POCT MOLECULAR STREP 2022-04-12 19:25:00 Unknown, Attending [facility] ASSIGNMENT OF BENEFITS 2022-04-12 19:01:07 Doctor Unassigned, Un [facility] Edgard [facility] POCT MOLECULAR STREP 2021-12-18 16:01:00 Unknown, Attending [facility] POCT MOLECULAR FLU 2021-12-14 14:42:00 Unknown, Attending [facility] POCT MOLECULAR STREP 2021-09-17 17:37:00 Stevie Gregg [facility] COVID-19 (MOLECULAR 2021-09-17 17:35:00 [facility] NUCLEIC ACID AMPLIFICATION) LAB ONLY COVID 2021-09-17 17:35:00 Stevie Gregg [facility] [place] [facility] POCT MOLECULAR STREP 2021-08-23 14:59:00 Nora Barrera [facility] Encounters Start End Encounter Admission Attending Care Care Encounter Source Date/Time Date/Time Type Type Clinicians Facility Department ID 2022-08-19 2022-08-19 Outpatient R CHRISTINAO [facility] [id number] Univers 14:00:00 15:03:11 MONROE [facility] 2022-08-19 2022-08-19 Urgent [place] Loyola [facility] 1.2.840.114 [id number] Univers 14:00:00 15:03:11 Care Unknown, Attending HEALTH 350.1.13.10 ity of [place] 4.2.7.2.686 Jayson as LILIANA?BLEA [phone] [address] MEDICAL OFFICE [facility] 2022-07-20 2022-07-20 Urgent Sathya Vasquez [facility] 1.2.840.114 [id number] Univers 10:40:00 11:00:00 Care Unknown, Attending HEALTH 350.1.13.10 ity of [place] 4.2.7.2.686 Jayson as LILIANA?BLEA [phone] [address] MEDICAL OFFICE [facility] 2022-07-20 2022-07-20 Outpatient R PEDRO [facility] [id number] Univers 10:40:00 10:40:00 [facility] 2022-07-20 2022-07-20 [facility] 1.2.840.114 [id number] Univers 00:00:00 00:00:00 (Out) Ranor HEALTH 350.1.13.10 it y of [facility] 4.2.7.2.686 Jayson as LILIANA?BLEA [phone] [address] MEDICAL OFFICE BUILDING 2022-07-12 2022-07-12 Letter STEVIE Graff 1.2.840.114 [id number] Univers 00:00:00 00:00:00 (Out) Cami HALLE 350.1.13.10 it y of [facility] 4.2.7.2.686 Jayson as [phone] [address] 2022-07-11 2022-07-11 [facility] [id number] Univers 10:40:00 11:16:25 [facility] 2022-07-11 2022-07-11 Nora Villanueva [facility] 1.2.840.114 [id number] Univers 10:40:00 11:16:25 Care Unknown, [facility] HEALTH 350.1.13.10 ity of [place] 4.2.7.2.686 Jayson as LILIANA?BLEA [phone] [address] MEDICAL OFFICE [facility] 2022-07-11 2022-07-11 [facility] 1.2.840.114 [id number] Univers 00:00:00 00:00:00 [facility].1.13.10 [facility] y of [place] 4.2.7.2.686 Jayson as LILIANA?BLEA [phone] [address] MEDICAL OFFICE [facility] 2022-06-29 2022-06-29 Outpatient R DANA [facility] [id number] Univers 11:15:00 11:15:00 DON [facility] 2022-06-02 2022-06-02 Outpatient R PEDRO [facility] [id number] Univers 12:00:00 12:53:47 [facility] 2022-06-02 2022-06-02 Urgent EbrahimSathya [facility] 1.2.840.114 [id number] Univers 12:00:00 12:20:00 Care Unknown, Attending HEALTH 350.1.13.10 ity of [place] 4.2.7.2.686 Jayson as LILIANA?BLEA [phone] [address] MEDICAL OFFICE [facility] 2022-06-01 2022-06-01 Outpatient R DANA [facility] [id number] Univers 09:30:00 09:39:26 DON ity [facility] 2022-06-01 2022-06-01 Office Dana, [facility] [id number] Univers 09:30:00 09:39:26 Visit Don A Landen 350.1.13.10 ity of [facility] 4.2.7.2.686 Jayson [phone] [facility] BLDG. [address] [place] 2022-05-10 2022-05-10 Urgent Ebludmila, Sathya [facility] 1.2.840.114 [id number] Univers 14:45:00 15:05:00 Care Unknown, Attending HEALTH 350.1.13.10 ity of [place] 4.2.7.2.686 Jayson as LILIANA?BLEA [phone] [address] MEDICAL OFFICE [facility] 2022-05-10 2022-05-10 Outpatient R SHERIELUDMILA, [facility] [id number] Univers 14:45:00 14:45:00 [facility] 2022-05-10 2022-05-10 Letter Sonimnalicia, [facility] 1.2.840.114 [id number] Univers 00:00:00 00:00:00 (Out) [facility] 350.1.13.10 it y of [facility] 4.2.7.2.686 Jayson as LILIANA?BLEA [phone] [address] MEDICAL OFFICE BUILDING 2022-05-03 2022-05-03 Emergency X BABIN, [facility] ERT [id number] Univers 20:02:00 21:35:00 TRACY ity [facility] 2022-05-03 2022-05-03 Emergency [facility] [id number] Univers 20:02:00 21:35:00 Tracy MELONIE 350.1.13.10 i ty of [place].7.2.[place] [phone] [address] 2022-04-30 2022-04-30 Letter [facility] 1.2.840.114 [id number] Univers 00:00:00 00:00:00 (Out) [facility] 350.1.13.10 it y of [place] 4.2.7.2.686 Jayson as LILIANA?BLEA [phone] [address] MEDICAL OFFICE [facility] 2022-04-26 2022-04-26 [facility] 1.2.840.114 [id number] Univers 09:40:00 10:00:00 Care Unknown, Attending [facility] 350.1.13.10 ity of [place] 4.2.7.2.686 Jayson as LILIANA?BLEA [phone] [address] OFFICE [facility] 2022-04-26 2022-04-26 Outpatient R PEDRO [facility] [id number] Univers 09:40:00 09:40:00 SATHYA itlanden [facility] 2022-04-12 2022-04-12 Urgent Ebmnalicia [facility] 1.2.840.114 [id number] Univers 12:40:00 13:00:00 Care Unknown, [place] [id number] ity [facility] 4.2.7.2.686 Jayson as LILIANA?BLEA [phone] [address] MEDICAL OFFICE [facility] 2022-04-12 2022-04-12 Outpatient R PEDRO [facility] [id number] Univers 12:40:00 12:40:00 SATHYA [facility] 2022-04-12 2022-04-12 Orders Doctor HUBBARD 1.2.840.114 [id number] Univers 00:00:00 00:00:00 Only Unassigned, HALLE 350.1.13.10 ity of [place] [facility] 4.2.7.2.686 Jayson as [phone] [address] 2022-04-12 2022-04-12 E[facility]on [facility] 1.2.840.114 [id number] Univers 00:00:00 00:00:00 (Out) [facility] 350.1.13.10 it y of [facility] 4.2.7.2.686 Jayson as LILIANA?BLEA [phone] [address] MEDICAL OFFICE [facility] 2022-01-16 2022-01-16 Outpatient [facility] [id number] Univers 15:15:00 15:15:00 MARIMAR ity [facility] 2021-12-18 2021-12-18 Outpatient [facility] [id number] Univers 09:20:00 10:35:00 NORA whitley [facility] 2021-12-18 2021-12-18 Urgent Nora Barrera [facility] 1.2.840.114 [id number] Univers 09:20:00 10:35:00 Care Unknown, Attending HEALTH 350..13.10 ity of [place] 4.2.7.2.686 Jayson as LILIANA?BLEA [phone] [address] 2021-12-18 2021-12-18 Edson [facility] 1.2.840.114 [id number] Univers 00:00:00 00:00:00 (Out) [facility] 350.1.13.10 it y of [facility] 4.2.7.2.686 Jayson as LILIANA?BLEA [phone] [address] OFFICE [facility] 2021-12-14 2021-12-14 Outpatient [facility] [id number] Univers 09:20:00 10:05:42 MITALI courtney [facility] 2021-12-14 2021-12-14 Mitali Huynh [facility] 1.2.840 .114 [id number] Univers 09:20:00 09:40:00 Care Unknown, Attending HEALTH 350..13.10 ity of [facility] 4.2.7.2.686 Jayson as LILIANA?BLEA [phone] [address] MEDICAL OFFICE [facility] 2021-12-14 2021-12-14 Letter [facility]annaCROWNPOINT [facility] [id number] [id number] Univers 00:00:00 00:00:00 (Out) [facility] 350.1.13.10 it y of Urgent Care [facility] 4.2.7.2.686 [place] LILIANA?BLEA [phone] [address] OFFICE [facility] 2021-09-18 2021-09-18 Letter STEVIE Zacarias 1.2.840.114 [id number] Univers 00:00:00 00:00:00 (Out) Devorah NERI 350.1.13.10 it y of [facility]OSPITAL 4.2.7.2.686 Jayson as [phone] [address] 2021-09-17 2021-09-17 Outpatient [facility] [id number] Univers 12:20:00 13:28:37 [facility] 2021-09-17 2021-09-[address] [address] [facility] 1.2.840.11 [id number] Univers 12:20:00 13:28:37 Care Marysol [facility] 350.1.13.10 ity of [place] 4.2.7.2.686 Jayson as LILIANA?BLEA [phone] [address] OFFICE [facility] 2021-09-07 2021-09-07 Urgent [facility] 1.2.840.114 [id number] Univers 12:00:00 12:20:00 Care Mitali [facility] 350.1.13.10 ity of [place] 4.2.7.2.686 Jayson as LILIANA?BLEA [phone] [address] 2021-09-07 2021-09-07 Outpatient R ALAN [facility] [id number] Univers 12:00:00 12:00:00 MITALI whitley o f [facility] 2021-08-23 2021-08-23 Outpatient R BRUCE [facility] [id number] Univers 09:40:00 10:09:29 NORA [facility] 2021-08-23 2021-08-23 Urgent [facility] 1.2.840.114 [id number] Univers 09:40:00 10:09:29 Care [facility] 350.1.13.10 it y of [place] 4.2.7.2.686 Jayson as LILIANA?BLEA [phone] [address] MEDICAL OFFICE [facility] 2021-08-23 2021-08-23 Outpatient R BRUCE [facility] [id number] Univers 09:40:00 10:09:29 NORA [facility] 2021-05-14 2021-05-14 Outpatient [facility] [id number] Univers 16:00:00 16:04:22 MONROE [facility] 2021-05-14 2021-05-14 Urgent [facility] 1.2.840.114 [id number] Univers 16:00:00 16:04:22 Care [facility] 350.1.13.10 it y of [place] 4.2.7.2.686 Jayson as LILIANA?BLEA [phone] [address] MEDICAL OFFICE [facility] 2021-04-29 2021-04-29 Outpatient R MARYSOL [facility] [id number] Univers 09:00:00 09:14:21 STEVIE [facility] 2021-04-29 2021-04-29 Orders Doctor STEVIE 1.2.840.114 [id number] Univers 00:00:00 00:00:00 Only Unassigned, HALLE 350.1.13.10 ity of [place] [facility] 4.2.7.2.686 Jayson as [phone] [address] 2021-02-26 2021-02-26 Emergency [facility] [id number] Univers 22:03:00 22:10:00 [facility] 2021-02-26 2021-02-26 Emergency Pedro [facility] 1.2.840.114 [id number] Univers 22:03:00 22:10:00 Sathya WILHELM 350.1.13.10 i ty [facility] 4.2.7.2.[place] [id number] [facility] 084 Branch 2021-02-20 2021-02-20 Laboratory Only, Ang Db Test [facility] 1.2.8 40.114 [id number] Univers 12:45:00 13:00:00 Only Farrukh Hyman 350.1.13.10 ity of [facility] 4.2.7.2.686 Jayson as LILIANA?BLEA [phone] [address] MEDICAL OFFICE [facility] 2021-02-20 2021-02-20 Outpatient [facility] [id number] Univers 12:45:00 12:45:00 FARRUKH bustoslanden o f [facility] 2021-02-20 2021-02-20 Orders Doctor HUBBARD 1.2.840.114 [id number] Univers 00:00:00 00:00:00 Only Unassigned, HALLE 350.1.13.10 ity of [place] [facility] 4.2.7.2.[phone] [facility] [address] [place] 2021-02-17 2021-02-17 Letter STEVIE Zacarias 1.2.840.114 [id number] Univers 00:00:00 00:00:00 (Out) Devorah NERI 350.1.13.10 it y of [facility] 4.2.7.2.[phone] [facility] [address] [place] 2021-02-15 2021-02-15 Laboratory Only, Ang Db Test [facility] 1.2.8 40.114 [id number] Univers 16:15:00 16:30:00 Only Christiano Monroe sifonr 350.1.13.10 ity of [facility] [id number] Jayson as LILIANA?BLEA [phone] [address] OFFICE [facility] 2021-02-15 2021-02-15 Outpatient R CHRISTIANO [facility] [id number] Univers 16:15:00 16:15:00 MONROE ity [facility] 2020-05-25 2020-05-25 Outpatient R WILIAM [facility] [id number] Univers 16:00:00 16:07:24 LEA ity [facility] 2020-05-25 2020-05-25 Outpatient R WILIAM, [facility] [id number] Univers 16:00:00 16:00:00 LEA ity [facility] 2020-05-04 2020-05-04 Outpatient R [facility] [id number] Univers 16:10:00 15:56:54 LEA ity [facility] 2020-03-19 2020-03-19 STEVIE Guido 1.2.840.114 [id number] Univers 00:00:00 00:00:00 (Out) Chin NERI 350.1.13.10 i ty [facility] 4.2.7.2.686 Jayson as [phone] [address] 2020-03-18 2020-03-18 Laboratory Lab, [facility] I [facility] 1.2. 840.114 [id number] Univers 17:12:54 17:32:54 Only Mitali Lowery [facility] 350.1.13.10 ity [facility] 4.2.7.2.686 Jayson as Professio [phone] [address] Office Building One 2020-03-18 2020-03-18 Outpatient R [facility] [id number] Univers 17:20:00 17:20:00 ity [facility] 2020-03-18 2020-03-18 Outpatient R [facility] [id number] Univers 17:20:00 17:20:00 ity [facility] 2020-03-13 2020-03-13 STEVIE Guido 1.2.840.114 [id number] Univers 00:00:00 00:00:00 (Out) Chin NERI 350.1.13.10 i ty [facility] 4.2.7.2.686 Jayson as [phone] [address] 2020-03-11 2020-03-11 [facility] [id number] Univers 15:40:00 15:40:00 AREN ity [facility] 2020-03-11 2020-03-11 Laboratory Lab, [facility] I [facility] 1.2. 840.114 [id number] Univers 15:06:51 15:26:51 Only Aren Shabazz [facility] 350.1.13.10 ity of [place] 4.2.7.2.686 Jayson as Professio [phone] Nh dical nal [address] 2020-02-15 2020-02-15 Letter Deann, STEVIE 1.2.840.114 [id number] Univers 00:00:00 00:00:00 (Out) Devorah Belle HALLE 350.1.13.10 it y of [facility] 4.2.7.2.[phone] [facility] [address] 2020-02-14 2020-02-14 Nurse Nurse, [facility] 1.2.840.114 [id number] Univers 15:41:47 15:56:47 Visit Unknown, Attending [place] 350.1.13.10 ity of [place]7.2.686 [place] [phone] [facility] [address] 2020-02-14 2020-02-14 Outpatient R NORMA, [facility] [id number] Univers 15:45:00 15:45:00 ATTENDING [facility] 2019-05-13 2019-05-13 Outpatient R PAYTON, [facility] [id number] Univers 13:40:00 13:40:00 TACHO [facility] 2019-05-11 2019-05-11 Telephone [facility] 1.2.728.744 [id number] Univers 00:00:00 00:00:00 Lolly Wilhelm 350.1.13.10 i ty [place] [phone] [facility] 179 [facility] 2019-05-11 2019-05-11 Telephone [facility] 1.2.014.023 [id number] 00:00:00 00:00:00 Lolly Anastasiya Melonie 350.1.13.10 [place] 4.2.7.2.686 Professio [phone] formerly [facility] 179 [facility] 2019-05-06 2019-05-06 Orders Doctor HUBBARD 1.2.840.114 [id number] Univers 00:00:00 00:00:00 Only Unassigned, HALLE 350.1.13.10 ity of [facility] 4.2.7.2.686 Jayson as [phone] [address] 2019-05-06 2019-05-06 Orders Doctor STEVIE 1.2.840.114 [id number] 00:00:00 00:00:00 Only Unassigned, HALLE 350.1.13.10 [facility] 4.2.7.2.[phone] [facility] 2019-05-04 2019-05-04 Ancillary Michelle, Lolly Langford [facility] 1.2.840. 114 [id number] [facility] 14:51:49 16:20:27 Visit Tacho Cain 350.1.13.10 ity [place] [phone] [address] 2019-05-04 2019-05-04 Ancillary DUANE Michelle 1.2.538.254 [id number] 14:51:49 16:20:27 Visit Lolly Wilhelm 350.1.13.10 [place] 4.2.7.2.686 Professio [phone] [address] 2019-04-23 2019-04-23 Ancillary Michelle, Lolly Langford [facility] 1.2.840. 114 [id number] [facility] 14:16:23 16:08:45 Visit Tacho Cain 350.1.13.10 ity [place]2.[place] [phone] Nh dic[address] 2019-04-23 2019-04-23 Ancillary Miguel Angel NMELVA 1.2.014.578 [id number] 14:16:23 16:08:45 Visit Lolly Wilhelm 350.1.13.10 [place] 4.2.7.2.686 Professio [phone] [address] 2019-04-22 2019-04-22 Ancillary Guerline Navarrete [facility] 1.2.840 .114 [id number] [facility] 14:24:40 15:14:05 Visit Cain, Tacho L [place] 350.1.13.10 ity [place] [phone] Me dical nal 179 [facility] 2019-04-22 2019-04-22 Ancillary Landon [facility] 1.2.263.706 [id number] 14:24:40 15:14:05 Visit Guerline Howell Melonie 350.1.13.10 [place] 4.2.7.2.686 Professio [phone] formerly [facility] 179 [facility] 2019-04-16 2019-04-16 Out[facility] [id number] [facility] 15:20:00 15:20:00 TACHO ity [facility] 2019-04-14 2019-04-14 Ancillary Lolly Michelle [facility] 1.2.840. 114 [id number] [facility] 16:16:46 16:56:46 Visit Tacho Cain 350.1.13.10 ity [place].2.[place] [phone] Nh dical nal 179 [facility] 2019-04-14 2019-04-14 Ancillary Miguel Angel [facility] 1.2.005.165 [id number] 16:16:46 16:56:46 Visit Lolly Langford Melonie 350.1.13.10 [place] 4.2.7.2.686 Professio [phone] formerly [facility] 179 [facility] 2019-04-09 2019-04-09 Ancillary Guerline Navarrete [facility] 1.2.840 .114 [id number] [facility] 16:19:26 17:01:53 Visit Tacho Cain Melonie 350.1.13.10 it[place] [phone] Me dical nal 179 [facility] 2019-04-09 2019-04-09 [facility] 1.2.909.438 [id number] 16:19:26 17:01:53 Visit Guerline Howell Melonie 350.1.13.10 [place] 4.2.7.2.686 Professio [phone] formerly [facility] 179 [facility] 2019-04-09 2019-04-09 [facility] [id number] [facility] 16:20:00 16:20:00 TACHO ity of [facility] 2019-03-31 2019-03-31 Ancillary Lolly Michelle [facility] 1.2.840. 114 [id number] [facility] 08:04:37 15:11:26 Visit Tacho Cain [place] 350.1.13.10 ity [place].2.[place] [phone] Nh dical [address] 2019-03-31 2019-03-31 Ancillary Miguel Angel [facility] 1.2.856.731 [id number] 08:04:37 15:11:26 Visit Lolly Langford Melonie 350.1.13.10 [place] 4.2.7.2.686 Professio [phone] [address] 2019-03-31 2019-03-31 Orders Doctor HUBBARD 1.2.840.114 [id number] 00:00:00 00:00:00 Only Unassigned, HALLE 350.1.13.10 [facility] 4.2.7.2.686 [phone] 009 2019-03-31 2019-03-31 Orders Doctor STEVIE 1.2.840.114 [id number] Univers 00:00:00 00:00:00 Only Unassigned, HALLE 350.1.13.10 ity of [facility] 4.2.7.2.686 Jayson as [phone] [address] 2018-08-28 2018-08-28 Orders Doctor STEVIE Olivarez.2.840.114 [id number] 00:00:00 00:00:00 Only Unassigned, HALLE 350.1.13.10 [facility] 4.2.7.2.686 [phone] 009 2018-08-28 2018-08-28 Orders Doctor STEVIE Olivarez.2.840.114 [id number] Univers 00:00:00 00:00:00 Only Unassigned, HALLE 350.1.13.10 ity of [facility] 4.2.7.2.686 Jayson as [phone] [address] Results Test Description Test Time Test Comments Results Result Comments Source POCT MOLECULAR FLU 2022-08-19 19:48:00 Test Item Value Reference Range Interpretation Comme nts POCT Molecular FluA (test code = 87410-0) Negative Negative POCT Molecular FluB (test code = 12138-1) Negative Negative Lab Interpretation (test code = 76400-4) Normal [facility] MOLECULAR [id number] 19:48:00 Test Item Value Reference Range Interpretation Comments POCT Molecular FluA (test code = Negative Negative 13519-9) POCT Molecular FluB (test code = Negative Negative 58318-1) Lab Interpretation (test code = Normal 95205-3) [facility] MOLECULAR [id number] 19:48:00 Test Item Value Reference Range Interpretation Comments POCT Molecular FluA (test code = Negative Negative 41150-5) POCT Molecular FluB (test code = Negative Negative 87564-0) Lab Interpretation (test code = Normal 81662-1) [facility] MOLECULAR [id number] 19:48:00 Test Item Value Reference Range Interpretation Comments POCT Molecular FluA (test code = Negative Negative 59435-5) POCT Molecular FluB (test code = Negative Negative 16922-0) Lab Interpretation (test code = Normal 66678-6) [facility] MOLECULAR [id number] 19:48:00 Test Item Value Reference Range Interpretation Comments POCT Molecular FluA (test code = Negative Negative 33650-2) POCT Molecular FluB (test code = Negative Negative 85365-7) Lab Interpretation (test code = Normal 95805-1) [facility] SARS-COV-2 ANTIGEN (BINAX NOW)2022-08-19 19:33:00 Test Item Value Reference Range Interpretation Comments POCT SARS-COV-2 ANTIGEN (test Not Detected Not Detected code = 80685-5) On board controls acceptable Yes with C Line (test code = 3574) Lab Interpretation (test code = Normal 73309-0) [facility] SARS-COV-2 ANTIGEN (BINAX NOW)2022-08-19 19:33:00 Test Item Value Reference Range Interpretation Comments POCT SARS-COV-2 ANTIGEN (test Not Detected Not Detected code = 33481-8) On board controls acceptable Yes with C Line (test code = 3574) Lab Interpretation (test code = Normal 62960-8) [facility] SARS-COV-2 ANTIGEN (BINAX NOW)2022-08-19 19:33:00 Test Item Value Reference Range Interpretation Comments POCT SARS-COV-2 ANTIGEN (test Not Detected Not Detected code = 84616-4) On board controls acceptable Yes with C Line (test code = 3574) Lab Interpretation (test code = Normal 28505-9) [facility] SARS-COV-2 ANTIGEN (BINAX NOW)2022-08-19 19:33:00 Test Item Value Reference Range Interpretation Comments POCT SARS-COV-2 ANTIGEN (test Not Detected Not Detected code = 73185-6) On board controls acceptable Yes with C Line (test code = 3574) Lab Interpretation (test code = Normal 51418-0) [facility] SARS-COV-2 ANTIGEN (BINAX NOW)2022-08-19 19:33:00 Test Item Value Reference Range Interpretation Comments POCT SARS-COV-2 ANTIGEN (test Not Detected Not Detected code = 12369-3) On board controls acceptable Yes with C Line (test code = 3574) Lab Interpretation (test code = Normal 87569-8) [facility] MOLECULAR [id number] 19:24:19 Test Item Value Reference Range Interpretation Comments POCT Molecular Strep (test code = Negative Negative 01097-8) Lab Interpretation (test code = Normal 63164-5) [facility] MOLECULAR [id number] 19:24:19 Test Item Value Reference Range Interpretation Comments POCT Molecular Strep (test code = Negative Negative 59192-6) Lab Interpretation (test code = Normal 63079-7) [facility] MOLECULAR [id number] 19:24:19 Test Item Value Reference Range Interpretation Comments POCT Molecular Strep (test code = Negative Negative 72292-5) Lab Interpretation (test code = Normal 87523-6) [facility] MOLECULAR [id number] 19:24:19 Test Item Value Reference Range Interpretation Comments POCT Molecular Strep (test code = Negative Negative 80606-3) Lab Interpretation (test code = Normal 63489-0) [facility] MOLECULAR [id number] 19:24:19 Test Item Value Reference Range Interpretation Comments POCT Molecular Strep (test code = Negative Negative 67954-6) Lab Interpretation (test code = Normal 58612-9) [facility] MOLECULAR [id number] 17:32:56 Test Item Value Reference Range Interpretation Comments POCT Molecular Strep (test code = Negative Negative 18717-4) Lab Interpretation (test code = Normal 42587-3) [facility] MOLECULAR [id number] 15:09:53 Test Item Value Reference Range Interpretation Comments POCT Molecular FluA (test code = Negative Negative 41801-4) POCT Molecular FluB (test code = Negative Negative 01551-7) Lab Interpretation (test code = Normal 92856-5) [facility] MOLECULAR [id number] 15:04:19 Test Item Value Reference Range Interpretation Comments POCT Molecular Strep (test code = Negative Negative 54413-6) Lab Interpretation (test code = Normal 89726-3) [facility] SARS-COV-2 ANTIGEN (BINAX NOW)2022-04-26 15:04:00 Test Item Value Reference Range Interpretation Comments POCT SARS-COV-2 ANTIGEN (test code = Positive Not Detected A 68279-1) On board controls acceptable with C Yes Line (test code = 3574) Lab Interpretation (test code = Abnormal 73764-5) [facility] MOLECULAR [id number] 19:30:25 Test Item Value Reference Range Interpretation Comments POCT Molecular Strep (test code = Positive Negative A 59920-6) Lab Interpretation (test code = Abnormal 59354-3) [facility] MOLECULAR [id number] 16:10:06 Test Item Value Reference Range Interpretation Comments POCT Molecular Strep (test code = Negative Negative 81454-3) Lab Interpretation (test code = Normal 01320-9) [facility] MOLECULAR [id number] 14:45:48 Test Item Value Reference Range Interpretation Comments POCT Molecular FluA (test code = Positive Negative A 07822-4) Lab Interpretation (test code = Abnormal 02935-8) [facility] MOLECULAR [id number] 17:48:29 Test Item Value Reference Range Interpretation Comments POCT Molecular Strep (test code = Negative Negative 16956-1) Lab Interpretation (test code = Normal 66113-5) [facility] [id number] 15:04:52 Test Item Value Reference Range Interpretation Comments POCT Molecular Strep (test code = Positive Negative A 08295-4) Lab Interpretation (test code = Abnormal 45519-2) [facility]
[2022-08-24] MEDS ORDERED: IBUPROFEN 400 MG TAB ONE (11:30)
[2022-08-24] MEDS ORDERED: NA CHLORIDE 0.9% 1,000 ML ONE (11:30)
[2022-08-24] MEDS ORDERED: IBUPROFEN 200 MG TAB PO ONE (11:30)
[2022-08-24 11:37] LABS: Absolute Lymphocytes (CBC) 1.6 K/uL (0.7-4.9); Lymphocytes % 10.1 % (15.3-44.8); MCV 82.8 fL (80-100); MPV 7.5 fL (7.6-11.3)
[2022-08-24 12:05] LABS: Potassium 2.8 mEq/L (3.5-5.1)
--- NOTE | 2022-08-24 12:06 | RAD REPORT ---
EXAM DESCRIPTION: CT - Soft Tissue Neck W/Contr CLINICAL HISTORY: r/o DIRECTOR CRITICAL CARE COMPARISON: No comparisons TECHNIQUE: Thin axial CT images of the neck, performed following intravenous administration of 100 mL Isovue-300. Multiplanar reformats were generated and reviewed. All CT scans are performed using dose optimization technique as appropriate and may include automated exposure control or mA/KV adjustment according to patient size. FINDINGS: Nasopharyngeal tissues are normal in appearance. Fossa Rosenmller are normal. Prominent palatine tonsillar tissues bilaterally, more so on the left. Adenoidal tissue is only minim ally prominent. No evidence of intra tonsillar or peritonsillar abscess. Parapharyngeal fat triangles are symmetric, without asymmetric effacement or fat stranding. Tongue base structures are normal. Epiglottis and aryepiglottic folds are normal. Piriform sinuses are well aerated. The vocal cords are normal in appearance. Prominent bilateral level 2 A, and bilateral level 5 lymph nodes, more so on the left, with the large st level 2 A nodes measuring 2.3 x 2.1 centimeter on the left and 2.0 x 1.6 centimeter on the right, and the largest left level 5 node measuring 2.1 x 1.4 centimeter. Mildly prominent lymph nodes throug hout others deep cervical stations. Salivary glands are normal in appearance. Upper lung lawson are clear. Included intracranial contents are unremarkable. IMPRESSION: Asymmetric prominence/ hypertrophy of the left more than right palatine tonsils, could b e reactive/ inflammatory, without evidence of intra tonsillar or peritonsillar abscess formation. Prominent bilateral level 2 A and level 5 lymph nodes, also favoring reactive/inflammatory etiology.
[2022-08-24] MEDS ORDERED: POTASSIUM CL SA 10 MEQ TAB PO ONE (12:25)
--- NOTE | 2022-08-24 12:39 | ER ---
Nurse's Notes [facility] Name: Cliff Kang Age: 22 yrs Sex: Male : 2000 Arrival Date: 08/24/2022 Time: 10:57 Bed 2 Private MD: Diagnosis: Acute tonsillitis, unspecified;Hypokalemia Presentation: 08/24 11:03 Chief complaint: Patient states: fever x 1 week ago. Body aches, chest congestion. aa5 Coronavirus screen: fever, muscle pain. Ebola Screen: Patient denies travel to an Ebola-affected area in the 21 days before illness onset. Initial Sepsis Screen: Does the patient meet any 2 criteria? Temp <36.0*C (96.8*F)) or > 38.3*C (100.9*F). HR > 90 bpm. Yes Does the patient have a suspected source of infection? Yes:. Risk Assessment: Do you want to hurt yourself or someone else? Patient reports no desire to harm self or others. Onset of symptoms was August 2022. 11:03 Acuity: MIRNA 3 aa5 11:03 Method Of Arrival: Ambulatory aa5 Historical: - Allergies: 11:06 Tessalon Perles (anxiety); aa5 - PMHx: 11:06 ADD/ADHD; Asthma; Depression; mood disorder; aa5 - PSHx: 11:06 Left ACL Repair; aa5 - Immunization history:: Adult Immunizations unknown. - Social history:: Smoking status: Patient reports the use of cigarette tobacco products. Screenin:40 [facility] ED Fall Risk Assessment (Adult) History of falling in the last 3 months, ph including since admission No falls in past 3 months (0 pts) Confusion or Disorientation No (0 pts) Intoxicated or Sedated No (0 pts) Impaired Gait No (0 pts) Mobility Assist Device Used No (0 pt) Altered Elimination No (0 pt) Score/Fall Risk Level 0 - 2 = Low Risk Oriented to surroundings, Maintained a safe environment, Hourly rounding (assess needs \T\ fall precautionary measures) done. Abuse screen: Denies threats or abuse. Denies injuries from another. Nutritional screening: No deficits noted. Tuberculosis screening: No symptoms or risk factors identified. Assessment: 11:39 General: Appears in no apparent distress. comfortable, Behavior is calm, cooperative, ph appropriate for age, Reports fever for > 3 days. Pain: Complains of pain in throat. Neuro: Level of Consciousness is awake, alert, obeys commands, Oriented to person, place, time, situation. Cardiovascular: Capillary refill < 3 seconds in bilateral fingers Patient's skin is warm and dry. Respiratory: Airway is patent Respiratory effort is even, unlabored, Respiratory pattern is regular, symmetrical. GI: Abdomen is non-distended, Reports nausea, vomiting. EENT: Reports nasal congestion pain when swallowing. Derm: Skin is pink, warm \T\ dry. 12:46 Reassessment: No changes from previously documented assessment. Patient and/or family mb9 updated on plan of care and expected duration. Pain level reassessed. Patient is alert, oriented x 3, equal unlabored respirations, skin warm/dry/pink. Vital Signs: 11:03 BP 126 / 89; Pulse 112; Resp 24 S; Temp 101.3(O); Pulse Ox 99% on R/A; Weight 79.38 kg aa5 (R); Height 5 ft. 5 in. (R); 12:13 BP 118 / 72; Pulse 98; Resp 18; Temp 99.1(O); Pulse Ox 98% on R/A; ph 11:03 Body Mass Index 29.12 (79.38 kg, 165.1 cm) aa5 ED Course: 11:00 Patient arrived in ED. mr 11:[address], [facility] kb 11:01 Dejuan Sandoval MD is Attending Physician. kb 11:03 Arm band placed on. aa5 11:05 Triage completed. aa5 11:10 Ashlyn Mireles, RN is Primary Nurse. ph 11:21 Initial lab(s) drawn, by in, sent to lab. Strep swab sent to lab. Inserted saline lock: mm9 22 gauge in left antecubital area, using aseptic technique. Blood collected. 11:22 Patient has correct armband on for positive identification. Bed in low position. Call mm9 light in reach. Side rails up X 1. Adult w/ patient. Warm blanket given. Pulse ox on. NIBP on. 11:38 CT Soft Tissue Neck W/contr In Process Unspecified. EDMS 12:39 No provider procedures requiring assistance completed. IV discontinued, intact, mb9 bleeding controlled, No redness/swelling at site. Pressure dressing applied. Administered Medications: 11: Drug: NS 0.9% IV 1000 ml Route: IV; Rate: 1000 ml; Site: left antecubital; ph 12:20 Follow up: Response: No adverse reaction; IV Status: Completed infusion ph 11:26 Drug: Ibuprofen PO 600 mg Route: PO; ph 12:58 Follow up: Response: No adverse reaction ph 12:20 Drug: Potassium Chloride PO 40 mEq Route: PO; ph 12:30 Follow up: Response: No adverse reaction ph Medication: 11:40 VIS not applicable for this client. ph Outcome: 12:38 Discharge ordered by . kb 12:40 Discharged to home ambulatory. mb9 12:40 Condition: stable 12:40 Discharge instructions given to patient, Instructed on discharge instructions, follow up and referral plans. Demonstrated understanding of instructions, follow-up care, medications, Prescriptions given X 1. 12:46 Patient left the ED. mb9 Signatures: Dispatcher [employer] EDMS Sadia Lane, BOARD CERTIFIED ARTS THERAPIST-C BOARD CERTIFIED ARTS THERAPIST-Jacey Crowley, Shania, RN RN aa5 Ashlyn Mireles, RN RN Meri Wolff, Jacey Tavarez, RN RN mb9 Corrections: (The following items were deleted from the chart) 11:07 11:03 BP 126 / 89; Pulse 112bpm; Resp 24bpm; Spontaneous; Pulse Ox 99% RA; Temp 101.3F aa5 Oral; aa5 11:07 11:06 Allergies: No Known Allergies; aa5 aa5
--- NOTE | 2022-08-24 12:39 | EDPHYS ---
Physician Documentation [facility] Name: Cliff Kang Age: 22 yrs Sex: Male : 2000 Arrival Date: 08/24/2022 Time: 10:57 Bed 2 Private MD: TRUE Physician Dejuan Sandoval HPI: 08/24 12:00 This 22 yrs old Male presents to ER via Ambulatory with complaints of Fever, kb Vomiting. 12:00 The patient presents with sore throat. The patient describes throat pain as constant. kb Onset: The symptoms/episode began/occurred 1 week(s) ago. Severity of symptoms: At their worst the symptoms were moderate, in the emergency department the symptoms are unchanged. Modifying factors: The symptoms are alleviated by nothing, the symptoms are aggravated by swallowing, Patient's oral intake status: good. Associated signs and symptoms: Pertinent positives: chills, fever, flu-like symptoms, myalgias, Sore throat. The patient has not experienced similar symptoms in the past. The patient has been recently seen at an urgent care, this week, for similar complaints, labs were performed. Pt reports fever, chills, sore throat, congestion, decreased appetite and bodyaches for one week. Historical: - Allergies: 11:06 Tessalon Perles (anxiety); aa5 - PMHx: 11:06 ADD/ADHD; Asthma; Depression; mood disorder; aa5 - PSHx: 11:06 Left ACL Repair; aa5 - Immunization history:: Adult Immunizations unknown. - Social history:: Smoking status: Patient reports the use of cigarette tobacco products. ROS: 12:00 Respiratory: Negative for shortness of breath, cough, wheezing, and pleuritic chest kb pain. 12:00 Constitutional: Positive for body aches, chills, fatigue, fever, malaise. 12:00 ENT: Positive for sore throat. 12:00 All other systems are negative. Exam: 12:00 Constitutional: This is a well developed, well nourished patient who is awake, alert, kb and in no acute distress. Head/Face: Normocephalic, atraumatic. Cardiovascular: Regular rate and rhythm with a normal S1 and S2. No gallops, murmurs, or rubs. No pulse deficits. Respiratory: Respirations even and unlabored. No increased work of breathing. Talking in full sentences Skin: Warm, dry with normal turgor. Normal color. MS/ Extremity: Pulses equal, no cyanosis. Neurovascular intact. Full, normal range of motion. Neuro: Awake and alert, GCS 15, oriented to person, place, time, and situation. Moves all extremities. Normal gait. 12:00 ENT: Posterior pharynx: Airway: normal, no evidence of obstruction, Tonsils: bilaterally enlarged, with erythema, with exudate, Uvula: normal, midline, swelling, that is moderate, erythema, that is moderate, exudate, that is mild, that is moderate. Vital Signs: 11:03 BP 126 / 89; Pulse 112; Resp 24 S; Temp 101.3(O); Pulse Ox 99% on R/A; Weight 79.38 kg aa5 (R); Height 5 ft. 5 in. (R); 12:13 BP 118 / 72; Pulse 98; Resp 18; Temp 99.1(O); Pulse Ox 98% on R/A; ph 11:03 Body Mass Index 29.12 (79.38 kg, 165.1 cm) aa5 MDM: 11:02 Patient medically screened. kb 12:02 Differential diagnosis: strep, tonsillitis, WOOD HEEL BACK LINER, pharyngitis. Data reviewed: vital kb signs, nurses notes. 12:11 Counseling: I had a detailed discussion with the patient and/or guardian regarding: the kb historical points, exam findings, and any diagnostic results supporting the discharge/admit diagnosis, lab results, radiology results, the need for outpatient follow up, an ENT specialist, to return to the emergency department if symptoms worsen or persist or if there are any questions or concerns that arise at home. 08/24 11:08 Order name: CBC with Diff; Complete Time: 11:42 kb 08/24 11:08 Order name: Basic Metabolic Panel; Complete Time: 12:10 kb 08/24 11:08 Order name: [place] Screen Profile kb 08/24 11:08 Order name: Strep kb 08/24 11:47 Order name: Throat Culture EDMS 08/24 11:08 Order name: CT Soft Tissue Neck W/contr; Complete Time: 12:10 kb 08/24 11:08 Order name: IV Start; Complete Time: 11:21 kb 08/24 12:10 Order name: Vital Signs; Complete Time: 12:13 kb Administered Medications: 11:26 Drug: NS 0.9% IV 1000 ml Route: IV; Rate: 1000 ml; Site: left antecubital; ph 12:20 Follow up: Response: No adverse reaction; IV Status: Completed infusion ph 11:26 Drug: Ibuprofen PO 600 mg Route: PO; ph 12:58 Follow up: Response: No adverse reaction ph 12:20 Drug: Potassium Chloride PO 40 mEq Route: PO; ph 12:30 Follow up: Response: No adverse reaction ph Disposition Summary: 08/24/22 12:38 Discharge Ordered Location: Home kb Condition: Stable kb Diagnosis - Acute tonsillitis, unspecified kb - Hypokalemia kb Followup: kb - With: Emergency Department - When: As needed - Reason: Worsening of condition Followup: kb - With: Private Physician - When: 2 - 3 days - Reason: Recheck today's complaints, Continuance of care, Re-evaluation by your physician Discharge Instructions: - Discharge Summary Sheet kb - Tonsillitis, [id number] kb Forms: - Medication Reconciliation Form kb - Thank You Letter kb - Antibiotic Education kb - Prescription Opioid Use kb - Patient Portal Instructions kb - Work release form mb9 Prescriptions: - Amoxicillin 875 mg Oral Tablet - take 1 tablet by ORAL route every 12 hours for 10 days; 20 tablet; Refills: 0, kb Product Selection Permitted Signatures: Dispatcher [employer] Sadia Garcia, DEANA-C DEANA-Shania Hurley, RN RN aa5 Ashlyn Mireles RN RN ph Corrections: (The following items were deleted from the chart) 11:07 11:06 Allergies: No Known Allergies; rebeka staley
[2022-08-24 13:26] VITALS: BP 118/72; TEMP 99.1; O2SAT 98
== END 2022-08-24 12:46 | disposition home or self-care (01) ==
LOC: ER 10:57
DX: J03.90 Acute tonsillitis, unspecified (principal); E87.6 Hypokalemia
CPT/HCPCS: 87070; 85025; 80048; 36415; 86308; 87081; 70491; 96360; 99285; Q9967; J7030

== ENCOUNTER 2022-08-25 13:46 | Emergency (ER) | payer OTHER ==
--- OUTSIDE RECORDS SUMMARY | 2022-08-25 13:53 | XMS REPORT | Continuity of Care Document ---
:2000 Author Organization [facility] t Address [address] [facility] [place] [address] Care Team Providers Name Role Phone James Krueger Primary Care Physician MONROE LOYOLA Attending Clinician Unavailable Monroe Mo Attending Clinician Unknown, Attending Attending Clinician Unavailable Sathya Sherwood Attending Clinician SATHYA VASQUEZ Attending Clinician Unavailable Cami Graff RN Attending Clinician Unavailable NORA BARRERA Attending Clinician Unavailable Nora Barrera MD Attending Clinician DON FINNEY Attending Clinician Unavailable Don Finney MD Attending Clinician TRACY BABIN Attending Clinician Unavailable Tracy Babin MD Attending Clinician Doctor Unassigned, [place] Attending Clinician Unavailable MARIMAR JEWELL Attending Clinician [...] Unavailable AREN SHABAZZ Attending Clinician Unavailable Mele CLAIMS EXAMINER, Aren Attending Clinician Nurse, [facility] Attending Clinician Unavailable UNKNOWN, ATTENDING Attending Clinician Unavailable TACHO CAIN Attending Clinician Unavailable Miguel Angel PT, Lolly Langford Attending Clinician Unavailable Tacho Cain MD Attending Clinician Landon MANAGER RECOVERY, Guerline Howell Attending Clinician Unavailable TRACY BABIN Admitting Clinician Unavailable Payers Payer Name Policy Type Policy Number Effective Date Expiration Date Sulma [employer]AR [id number] 2021 00:00:00 Problems Condition Condition Condition Status [...] Added automatic ally from request for surgery [id number] Allergies, Adverse Reactions, Alerts Allergy Allergy Status [...] Active Univers ALLERGIE Class ity of S [facility] Social History Social Habit Start Date Stop Date Quantity Comments Source Gender identity Universit y [facility] Sexual orientation Univer sity [facility] History of tobacco Cigarette Smoker University of [facility] [place] [facility] Alcohol intake 2022-08-19 2022-08-19 Current drinker Unive rsity of 00:00:00 00:00:00 of alcohol [facility] (finding) Branch Exposure to 2022-07-01 2022-07-11 Not sure University of SARS-CoV-2 (event) 00:00:00 10:50:00 [facility] Tobacco use and 2022-04-12 2022-04-12 User of smokeless Un iversity of exposure 00:00:00 00:00:00 tobacco [facility] Cigarettes smoked 2022-04-12 2022-04-12 Univers ity of current (pack per 00:00:00 00:00:00 [facility] ) - Reported Branch Cigarette 2022-04-12 2022-04-12 University of pack-years 00:00:00 00:00:00 [facility] Tobacco Comment 2022-04-12 2022-04-12 vape Universit y of 00:00:00 00:00:00 [facility] Alcohol Comment 2022-04-12 2022-04-12 ocassional Universit y of 00:00:00 00:00:00 [facility] History of Social 2021-09-07 2021-09-07 Univers ity of function 00:00:00 00:00:00 [facility] Sex Assigned At [birth year] Universit y of 00:00:00 00:00:00 [facility] Smoking Status Start Date Stop Date Source Smokes tobacco daily 2022-04-12 00:00:00 Univers ity of [facility] Never smoked tobacco [facility] Medications Ordered Filled Start Stop Current Ordering Indication Dosage Frequency Signature Comments Components Source Medication Medication Date Date Medication? Clinician (SIG) Name Name dexAMETHaso 2022- No [id number] 12mg Univers ne 08-19 ity of (DECADRON) 20:30: 19:51 [place] tablet 12 00 :00 Medical Branch dexAMETHaso 2022- No [id number] 12mg 12 mg, Univers ne 08-19 Oral, ity of (DECADRON) 20:30: 19:51 ONCE, 1 [place] tablet 12 00 :00 dose, On Medica l mg 08/19/22 Branch at 1530, Routine dexAMETHaso 2022- No [id number] 12mg Univers ne 08-19 ity of (DECADRON) 20:30: 19:51 [place] tablet 12 00 :00 Medical mg Branch dexAMETHaso 2022- No [id number] 12mg 12 mg, [facility] 08-19 Oral, ity of (DECADRON) 20:30: 19:51 ONCE, 1 [place] tablet 12 00 :00 dose, On Medica l mg Bessie 08/19/22 Branch at 1530, Routine dexAMETHaso 2022- No [id number] 12mg [facility] 08-19 ity of (DECADRON) 20:30: 19:51 [place] tablet 12 00 :00 Medical mg Branch dexAMETHaso 2022- No [id number] 12mg 12 mg, [facility] 08-19 Oral, ity of (DECADRON) 20:30: 19:51 ONCE, 1 [place] tablet 12 00 :00 dose, On Medica l mg Bessie 08/19/22 Branch at 1530, Routine dexAMETHaso 2022- No [id number] 12mg [facility] 08-19 ity of (DECADRON) 20:30: 19:51 [place] tablet 12 00 :00 Medical mg Branch dexAMETHaso 2022- No [id number] 12mg 12 mg, [facility] 08-19 Oral, ity of (DECADRON) 20:30: 19:51 ONCE, 1 [place] tablet 12 00 :00 dose, On Medica l mg Bessie 08/19/22 Branch at 1530, Routine dexAMETHaso 2022- No [id number] 12mg [facility] 08-19 ity of (DECADRON) 20:30: 19:51 [place] tablet 12 00 :00 Medical mg Branch dexAMETHaso 2022- No [id number] 12mg 12 mg, [facility] 08-19 Oral, ity of (DECADRON) 20:30: 19:51 ONCE, 1 [place] tablet 12 00 :00 dose, On Medica l mg Bessie 08/19/22 [place] at 1530, Routine codeine-gua 2022- Yes [id number] [...] Indication s: acute pain dexamethaso 2022- No [id number] 10mg U nivers ne 07-20 ity of (DECADRON) 17:15: 16:20 [place] injection 00 :00 Medical 10 mg Branch dexamethaso 2022- No [id number] 10mg 10 mg, Univers ne 07-20 Intramuscu ity of (DECADRON) 17:15: 16:20 lar, ONCE, [place] injection 00 :00 1 dose, On Medi carlos 10 mg 07/20/22 Branch at 1215, Routine promethazin 2022- Yes [id number] 5mL Take 5 mL Univers e-dextromet 07-20 06-20 by mouth 4 i ty of horphan 00:00: 04:59 (four) [place] 6.25-15 00 :00 times Medical mg/5 mL daily for Branch syrup 10 days. amoxicillin 2022- Yes [id number] 1{tbl} Take 1 Univers -clavulanat 6- 06-20 tablet by it y of e 00:00: 04:59 mouth in [place] (AUGMENTIN) 00 :00 the Medical 875-125 mg morning Branch per tablet and 1 tablet in the evening. Do all this for 10 days. promethazin 2022- Yes [id number] 5mL Take 5 mL Univers e-dextromet 07-20-20 by mouth 4 i ty of horphan 00:00: 04:59 (four) [place] 6.25-15 00 :00 times Medical mg/5 mL daily for Branch syrup 10 days. amoxicillin 2022- Yes [id number] 1{tbl} Take 1 Univers -clavulanat 6- 06-20 tablet by it y of e 00:00: 04:59 mouth in [place] (AUGMENTIN) 00 :00 the Medical 875-125 mg morning Branch per tablet and 1 tablet in the evening. Do all this for 10 days. bromphenira Yes [id number] 10mL Take 10 mL Univers mine-pseudo 5-31 by mouth 4 it y of ephedrine-D 00:00: (four[place] (BROMFED 00 times Medical DM) 2-30-10 daily as Bran ch mg/5 mL needed for syrup Cold symptoms. albuterol Yes [id number] 2{puff} Inhale 2 Univers 90 5-31 Puffs ity of mcg/actuati 00:00: every 6 [place] on inhaler 00 (six) Medical hours as Branch needed for Shortness of Breath or Wheezing. ibuprofen Yes [id number] 600mg Take 1 U nivers 600 mg 5-31 tablet by ity of tablet 00:00: mouth [place] 00 every 6 Medical (six) Branch hours as needed for Pain (scale 1-3) or Pain (scale 4-6). bromphenira 2022-0 Yes [id number] 10mL Take 10 mL Univers mine-pseudo 5-31 by mouth 4 it y of ephedrine-D 00:00: (four) [place] (BROMFED 00 times Medical DM) 2-30-10 daily as Bran ch mg/5 mL needed for syrup Cold symptoms. albuterol 2022-0 Yes [id number] 2{puff} Inhale 2 Univers 90 5-31 Puffs ity of mcg/actuati 00:00: every 6 [place] on inhaler 00 (six) Medical hours as Branch needed for Shortness of Breath or Wheezing. ibuprofen 2022-0 Yes [id number] 600mg Take 1 U nivers 600 mg 5-31 tablet by ity of tablet 00:00: mouth [place] 00 every 6 Medical (six) Branch hours as needed for Pain (scale 1-3) or Pain (scale 4-6). bromphenira 2022-0 Yes [id number] 10mL Take 10 mL Univers mine-pseudo 5-31 by mouth 4 it y of ephedrine-D 00:00: (four[place] (BROMFED 00 times Medical DM) 2-30-10 daily as Bran ch mg/5 mL needed for syrup Cold symptoms. albuterol 2022-0 Yes [id number] 2{puff} Inhale 2 Univers 90 5-31 Puffs ity of mcg/actuati 00:00: every 6 [place] on inhaler 00 (six) Medical hours as Branch needed for Shortness of Breath or Wheezing. ibuprofen 2022-0 Yes [id number] 600mg Take 1 U nivers 600 mg 5-31 tablet by ity of tablet 00:00: mouth [place] 00 every 6 Medical (six) Branch hours as needed for Pain (scale 1-3) or Pain (scale 4-6). bromphenira 2022-0 Yes [id number] 10mL Take 10 mL Univers mine-pseudo 5-31 by mouth 4 it y of ephedrine-D 00:00: (four) [place] (BROMFED 00 times Medical DM) 2-30-10 daily as Bran ch mg/5 mL needed for syrup Cold symptoms. albuterol 2022-0 Yes [id number] 2{puff} Inhale 2 Univers 90 5-31 Puffs ity of mcg/actuati 00:00: every 6 [place] on inhaler 00 (six) Medical hours as Branch needed for Shortness of Breath or Wheezing. ibuprofen 2022-0 Yes [id number] 600mg Take 1 U nivers 600 mg 5-31 tablet by ity of tablet 00:00: mouth [place] 00 every 6 Medical (six) Branch hours as needed for Pain (scale 1-3) or Pain (scale 4-6). bromphenira 2022-0 Yes [id number] 10mL Take 10 mL Univers mine-pseudo 5-31 by mouth 4 it y of ephedrine-D 00:00: (four) [place] (BROMFED 00 times Medical DM) 2-30-10 daily as Bran ch mg/5 mL needed for syrup Cold symptoms. albuterol 2022-0 Yes [id number] 2{puff} Inhale 2 Univers 90 5-31 Puffs ity of mcg/actuati 00:00: every 6 [place] on inhaler 00 (six) Medical hours as Branch needed for Shortness of Breath or Wheezing. ibuprofen 2022-0 Yes [id number] 600mg Take 1 U nivers 600 mg 5-31 tablet by ity of tablet 00:00: mouth [place] 00 every 6 Medical (six) Branch hours as needed for Pain (scale 1-3) or Pain (scale 4-6). bromphenira 2022-0 Yes [id number] 10mL Take 10 mL Univers mine-pseudo 5-31 by mouth 4 it y of ephedrine-D 00:00: (four) [place] (BROMFED 00 times Medical DM) 2-30-10 daily as Bran ch mg/5 mL needed for syrup Cold symptoms. albuterol 2022-0 Yes [id number] 2{puff} Inhale 2 Univers 90 5-31 Puffs ity of mcg/actuati 00:00: every 6 [place] on inhaler 00 (six) Medical hours as Branch needed for Shortness of Breath or Wheezing. ibuprofen 2022-0 Yes [id number] 600mg Take 1 U nivers 600 mg 5-31 tablet by ity of tablet 00:00: mouth [place] 00 every 6 Medical (six) Branch hours as needed for Pain (scale 1-3) or Pain (scale 4-6). bromphenira 202-0 Yes [id number] 10mL Take 10 mL Univers mine-pseudo 5-31 by mouth 4 it y of ephedrine-D 00:00: (four) [place] (BROMFED 00 times Medical DM) 2-30-10 daily as Bran ch mg/5 mL needed for syrup Cold symptoms. albuterol Yes [id number] 2{puff} Inhale 2 Univers 90 5-31 Puffs ity of mcg/actuati 00:00: every 6 [place] on inhaler 00 (six) Medical hours as Branch needed for Shortness of Breath or Wheezing. ibuprofen 0 Yes [id number] 600mg Take 1 U nivers 600 mg 5-31 tablet by ity of tablet 00:00: mouth [place] 00 every 6 Medical (six) Branch hours as needed for Pain (scale 1-3) or Pain (scale 4-6). bromphenira 0 Yes [id number] 10mL Take 10 mL Univers mine-pseudo 5-31 by mouth 4 it y of ephedrine-D 00:00: (four) [place] (BROMFED 00 times Medical DM) 2-30-10 daily as Bran ch mg/5 mL needed for syrup Cold symptoms. albuterol Yes [id number] 2{puff} Inhale 2 Univers 90 5-31 Puffs ity of mcg/actuati 00:00: every 6 [place] on inhaler 00 (six) Medical hours as Branch needed for Shortness of Breath or Wheezing. ibuprofen 0 Yes [id number] 600mg Take 1 U nivers 600 mg 5-31 tablet by ity of tablet 00:00: mouth [place] 00 every 6 Medical (six) Branch hours as needed for Pain (scale 1-3) or Pain (scale 4-6). bromphenira 0 Yes [id number] 10mL Take 10 mL Univers mine-pseudo 5-31 by mouth 4 it y of ephedrine-D 00:00: (four) [place] (BROMFED 00 times Medical DM) 2-30-10 daily as Bran ch mg/5 mL needed for syrup Cold symptoms. albuterol 0 Yes [id number] 2{puff} Inhale 2 Univers 90 5-31 Puffs ity of mcg/actuati 00:00: every 6 [place] on inhaler 00 (six) Medical hours as Branch needed for Shortness of Breath or Wheezing. ibuprofen Yes [id number] 600mg Take 1 U nivers 600 mg 5-31 tablet by ity of tablet 00:00: mouth [place] 00 every 6 Medical (six) Branch hours as needed for Pain (scale 1-3) or Pain (scale 4-6). bromphenira Yes [id number] 10mL Take 10 mL Univers mine-pseudo 5-31 by mouth 4 it y of ephedrine-D 00:00: (four) [place] (BROMFED 00 times Medical DM) 2-30-10 daily as Bran ch mg/5 mL needed for syrup Cold symptoms. albuterol Yes [id number] 2{puff} Inhale 2 Univers 90 5-31 Puffs ity of mcg/actuati 00:00: every 6 [place] on inhaler 00 (six) Medical hours as Branch needed for Shortness of Breath or Wheezing. ibuprofen Yes [id number] 600mg Take 1 U nivers 600 mg 5-31 tablet by ity of tablet 00:00: mouth [place] 00 every 6 Medical (six) Branch hours as needed for Pain (scale 1-3) or Pain (scale 4-6). clindamycin 2022- Yes [id number] 300mg Take 1 Univers 300 mg 4-21 05-13 capsule by ity of capsule 00:00: 04:59 mouth 4 [place] 00 :00 (four) Medical times Branch daily for 21 days. clindamycin 2022- Yes [id number] 300mg Take 1 Univers 300 mg 4-21 05-13 capsule by ity of capsule 00:00: 04:59 mouth 4 [place] 00 :00 (four) Medical times Branch daily for 21 days. clindamycin 2022- Yes [id number] 300mg Take 1 Univers 300 mg 4-21 05-13 capsule by ity of capsule 00:00: 04:59 mouth 4 [place] 00 :00 (four) Medical times Branch daily for 21 days. clindamycin 2022- Yes [id number] 300mg Take 1 Univers 300 mg 4-21 05-13 capsule by ity of capsule 00:00: 04:59 mouth 4 [place] 00 :00 (four) Medical times Branch daily for 21 days. clindamycin 2022- Yes [id number] 300mg Take 1 Univers 300 mg 4-21 05-13 capsule by ity of capsule 00:00: 04:59 mouth 4 [place] 00 :00 (four) Medical times Branch daily for 21 days. bromphenira 2023-0 3- No [id number] 5mL Take 5 mL Univers mine-pseudo 3-30 04-10 by mouth 4 i ty of ephedrine-D 00:00: 04:59 (four) [place] M (BROMFED 00 :00 times Medical DM) 2-30-10 daily for Bra nch mg/5 mL 10 days. syrup bromphenira 2023-0 3- No [id number] 5mL Take 5 mL Univers mine-pseudo 3-30 [...] Indication s: acute pain benzonatate 2023-0 Yes [id number] 100mg Take 1 Univers 100 mg 3-23 [...] Indication s: acute pain benzonatate 2023-0 Yes [id number] 100mg Take 1 Univers 100 mg 3-23 [...] Indication s: acute pain benzonatate 2023-0 Yes [id number] 100mg Take 1 Univers 100 mg 3-23 [...] Indication s: acute pain benzonatate 2023-0 Yes [id number] 100mg Take 1 Univers 100 mg 3-23 [...] Indication s: acute pain benzonatate 2023-0 Yes [id number] 100mg Take 1 Univers 100 mg 3-23 [...] Indication s: acute pain benzonatate 2023-0 Yes [id number] 100mg Take 1 Univers 100 mg 3-23 [...] Indication s: acute pain benzonatate 2023-0 Yes [id number] 100mg Take 1 Univers 100 mg 3-23 [...] Indication s: acute pain benzonatate 2023-0 Yes [id number] 100mg Take 1 Univers 100 mg 3-23 [...] Indication s: acute pain benzonatate 2023-0 Yes [id number] 100mg Take 1 Univers 100 mg 3-23 [...] Indication s: acute pain benzonatate 2023-0 Yes [id number] 100mg Take 1 Univers 100 mg 3-23 [...] Indication s: acute pain benzonatate 2023-0 Yes [id number] 100mg Take 1 Univers 100 mg 3-23 [...] Indication s: acute pain benzonatate 2023-0 Yes [id number] 100mg Take 1 Univers 100 mg 3-23 [...] Indication s: acute pain benzonatate 2023-0 Yes [id number] 100mg Take 1 Univers 100 mg 3-23 [...] Indication s: acute pain benzonatate 2023-0 Yes [id number] 100mg Take 1 Univers 100 mg 3-23 [...] Indication s: acute pain benzonatate 2023-0 Yes [id number] 100mg Take 1 Univers 100 mg 3-23 [...] Indication s: acute pain benzonatate 2023-0 Yes [id number] 100mg Take 1 Univers 100 mg 3-23 [...] Indication s: acute pain benzonatate 3-0 Yes [id number] 100mg Take 1 Univers 100 mg 3-23 [...] Indication s: acute pain benzonatate 2022-0 Yes [id number] 100mg Take 1 Univers 100 mg 3-23 capsule by ity of capsule 00:00: mouth 3 [place] 00 (three) Medical times Branch daily as needed for Cough. nirmatrelvi 2022-0 Yes [id number] 3{tbl} Take 3 Univers r-ritonavir 3-16 tablets by it y of (PAXLOVID, 00:00: mouth in [place] EUA,) 300 00 the Medical mg (150 mg morning Branch x 2)-100 mg and 3 tablet tablets in the evening. nirmatrelvi 2022-0 Yes [id number] 3{tbl} Take 3 Univers r-ritonavir 3-16 tablets by it y of (PAXLOVID, 00:00: mouth in [place] EUA,) 300 00 the Medical mg (150 mg morning Branch x 2)-100 mg and 3 tablet tablets in the evening. nirmatrelvi 2022-0 Yes [id number] 3{tbl} Take 3 Univers r-ritonavir 3-16 tablets by it y of (PAXLOVID, 00:00: mouth in [place] EUA,) 300 00 the Medical mg (150 mg morning Branch x 2)-100 mg and 3 tablet tablets in the evening. niriltrelvi 2022-0 Yes [id number] 3{tbl} Take 3 Univers r-ritonavir 3-16 tablets by it y of (PAXLOVID, 00:00: mouth in [place] EUA,) 300 00 the Medical mg (150 mg morning Branch x 2)-100 mg and 3 tablet tablets in the evening. nirmatrelvi 2022-0 Yes [id number] 3{tbl} Take 3 Univers r-ritonavir 3-16 tablets by it y of (PAXLOVID, 00:00: mouth in [place] EUA,) 300 00 the Medical mg (150 mg morning Branch x 2)-100 mg and 3 tablet tablets in the evening. nirmatrelvi 2022-0 Yes [id number] 3{tbl} Take 3 Univers r-ritonavir 3-16 tablets by it y of (PAXLOVID, 00:00: mouth in [place] EUA,) 300 00 the Medical mg (150 mg morning Branch x 2)-100 mg and 3 tablet tablets in the evening. niriltrelvi 2022-0 Yes [id number] 3{tbl} Take 3 Univers r-ritonavir 3-16 tablets by it y of (PAXLOVID, 00:00: mouth in [place] EUA,) 300 00 the Medical mg (150 mg morning Branch x 2)-100 mg and 3 tablet tablets in the evening. niriltrelvi 2022-0 Yes [id number] 3{tbl} Take 3 Univers r-ritonavir 3-16 tablets by it y of (PAXLOVID, 00:00: mouth in [place] EUA,) 300 00 the Medical mg (150 mg morning Branch x 2)-100 mg and 3 tablet tablets in the evening. nirmatrelvi 2022-0 Yes [id number] 3{tbl} Take 3 Univers r-ritonavir 3-16 tablets by it y of (PAXLOVID, 00:00: mouth in [place] EUA,) 300 00 the Medical mg (150 mg morning Branch x 2)-100 mg and 3 tablet tablets in the evening. niriltrelvi 2022-0 Yes [id number] 3{tbl} Take 3 Univers r-ritonavir 3-16 tablets by it y of (PAXLOVID, 00:00: mouth in [place] EUA,) 300 00 the Medical mg (150 mg morning Branch x 2)-100 mg and 3 tablet tablets in the evening. [facility] Yes [id number] 3{tbl} Take 3 Univers r-ritonavir 3-16 tablets by it y of (PAXLOVID, 00:00: mouth in [place] EUA,) 300 00 the Medical mg (150 mg morning Branch x 2)-100 mg and 3 tablet tablets in the evening. nirmatrelvi Yes [id number] 3{tbl} Take 3 Univers r-ritonavir 3-16 tablets by it y of (PAXLOVID, 00:00: mouth in [place] EUA,) 300 00 the Medical mg (150 mg morning Branch x 2)-100 mg and 3 tablet tablets in the evening. niriltrelvi Yes [id number] 3{tbl} Take 3 Univers r-ritonavir 3-16 tablets by it y of (PAXLOVID, 00:00: mouth in [place] EUA,) 300 00 the Medical mg (150 mg morning Branch x 2)-100 mg and 3 tablet tablets in the evening. niriltrelvi 2022- No [id number] 3{tbl} Take 3 Univers r-ritonavir 3-16 - tablets by i ty of (PAXLOVID, 00:00: 00:00 mouth in [place] EUA,) 300 00 :00 the Medical mg (150 mg morning Branch x 2)-100 mg and 3 tablet tablets in the evening. penicillin 2022- No [id number] 1.210 U nivers g 04-12 ity of benzathine 20:30: 19:50 [place] (BICILLIN 00 :00 Medical L-A) Branch injection 1.2 Million Units penicillin 2022- No [id number] 1.210 1.2 U nivers g 04-12 Million ity of benzathine 20:30: 19:50 [place], [place] (BICILL[place] 00 :00 Intramuscu Medi carlos L-A) lar, ONCE, Branch injection 1 dose, On 1.2 Million Ara 04/12/22 Units at 1430, WILY
Re ason for Anti-Infec tive: Documented Infection< br>Documen manfred Infection Site: HEENT
D uration of Therapy: Other (see Comments) methylPREDN 2021-02- No [id number] 40mg Univers ISolone sod 02-17- ity of succ 17:15: 16:31 [place] (SOLU-MEDRO 00 :00 Medical L (PF)) Branch injection 40 mg methylPREDN 2021-02- No [id number] 40mg 40 mg, Univers ISolone sod 02-17 Intramuscu i ty of succ 17:15: 16:31 lar, ONCE, [place] (SOLU-MEDRO 00 :00 1 dose, On Me dical L (PF)) Mon Branch injection 12/18/21 at 40 mg 1115, Routine bromphenira 2021-02 Yes [id number] 5mL Take 5 mL Univers mine-pseudo 1-07 by mouth 4 it y of ephedrine-D 00:00: (four) [place] (BROMFED 00 times Medical DM) 2-30-10 daily as Bran ch mg/5 mL needed for syrup Congestion /Allergies . bromphenira 2021-02 Yes [id number] 5mL Take 5 mL Univers mine-pseudo 1-07 by mouth 4 it y of ephedrine-D 00:00: (four) [place] (BROMFED 00 times Medical DM) 2-30-10 daily as Bran ch mg/5 mL needed for syrup Congestion /Allergies . bromphenira 2021-02 Yes [id number] 5mL Take 5 mL Univers mine-pseudo 1-07 by mouth 4 it y of ephedrine-D 00:00: (four) [place] (BROMFED 00 times Medical DM) 2-30-10 daily as Bran ch mg/5 mL needed for syrup Congestion /Allergies . bromphenira 2021-02 Yes [id number] 5mL Take 5 mL Univers mine-pseudo 1-07 by mouth 4 it y of ephedrine-D 00:00: (four) [place] (BROMFED 00 times Medical DM) 2-30-10 daily as Bran ch mg/5 mL needed for syrup Congestion /Allergies . bromphenira 2021-02 Yes [id number] 5mL Take 5 mL Univers mine-pseudo 1-07 by mouth 4 it y of ephedrine-D 00:00: (four) [place] (BROMFED 00 times Medical DM) 2-30-10 daily as Bran ch mg/5 mL needed for syrup Congestion /Allergies . bromphenira 2021-02 Yes [id number] 5mL Take 5 mL Univers mine-pseudo 1-07 by mouth 4 it y of ephedrine-D 00:00: (four) [place] (BROMFED 00 times Medical DM) 2-30-10 daily as Bran ch mg/5 mL needed for syrup Congestion /Allergies . bromphenira 2021-02 Yes [id number] 5mL Take 5 mL Univers mine-pseudo 1-07 by mouth 4 it y of ephedrine-D 00:00: (four) [place] (BROMFED 00 times Medical DM) 2-30-10 daily as Bran ch mg/5 mL needed for syrup Congestion /Allergies . bromphenira 2021-02 Yes [id number] 5mL Take 5 mL Univers mine-pseudo 1-07 by mouth 4 it y of ephedrine-D 00:00: (four) [place] (BROMFED 00 times Medical DM) 2-30-10 daily as Bran ch mg/5 mL needed for syrup Congestion /Allergies . bromphen2021-02 Yes [id number] 5mL Take 5 mL Univers mine-pseudo 1-07 by mouth 4 it y of ephedrine-D 00:00: (four) [place] (BROMFED 00 times Medical DM) 2-30-10 daily as Bran ch mg/5 mL needed for syrup Congestion /Allergies . bromphenira 2021-02 Yes [id number] 5mL Take 5 mL Univers mine-pseudo 1-07 by mouth 4 it y of ephedrine-D 00:00: (four) [place] (BROMFED 00 times Medical DM) 2-30-10 daily as Bran ch mg/5 mL needed for syrup Congestion /Allergies . bromphenira 2021-02 Yes [id number] 5mL Take 5 mL Univers mine-pseudo 1-07 by mouth 4 it y of ephedrine-D 00:00: (four) [place] (BROMFED 00 times Medical DM) 2-30-10 daily as Bran ch mg/5 mL needed for syrup Congestion /Allergies . bromphenira 2021-02 Yes [id number] 5mL Take 5 mL Univers mine-pseudo 1-07 by mouth 4 it y of ephedrine-D 00:00: (four) [place] (BROMFED 00 times Medical DM) 2-30-10 daily as Bran ch mg/5 mL needed for syrup Congestion /Allergies . bromphenira 2021-02 Yes [id number] 5mL Take 5 mL Univers mine-pseudo 1-07 by mouth 4 it y of ephedrine-D 00:00: (four) [place] (BROMFED 00 times Medical DM) 2-30-10 daily as Bran ch mg/5 mL needed for syrup Congestion /Allergies . bromphenira 2021-02 Yes [id number] 5mL Take 5 mL Univers mine-pseudo 1-07 by mouth 4 it y of ephedrine-D 00:00: (four) [place] (BROMFED 00 times Medical DM) 2-30-10 daily as Bran ch mg/5 mL needed for syrup Congestion /Allergies . bromphenira 2021-02 Yes [id number] 5mL Take 5 mL Univers mine-pseudo 1-07 by mouth 4 it y of ephedrine-D 00:00: (four) [place] (BROMFED 00 times Medical DM) 2-30-10 daily as Bran ch mg/5 mL needed for syrup Congestion /Allergies . bromphenira 2021-02 Yes [id number] 5mL Take 5 mL Univers mine-pseudo 1-07 by mouth 4 it y of ephedrine-D 00:00: (four) [place] (BROMFED 00 times Medical DM) 2-30-10 daily as Bran ch mg/5 mL needed for syrup Congestion /Allergies . bromphenira 2021-02 Yes [id number] 5mL Take 5 mL Univers mine-pseudo 1-07 by mouth 4 it y of ephedrine-D 00:00: (four) [place] (BROMFED 00 times Medical DM) 2-30-10 daily as Bran ch mg/5 mL needed for syrup Congestion /Allergies . bromphenira 2021-02 Yes [id number] 5mL Take 5 mL Univers mine-pseudo 1-07 by mouth 4 it y of ephedrine-D 00:00: (four) [place] (BROMFED 00 times Medical DM) 2-30-10 daily as Bran ch mg/5 mL needed for syrup Congestion /Allergies . bromphenira 2021-02 Yes [id number] 5mL Take 5 mL [facility] mine-pseudo 1-07 by mouth 4 it y of ephedrine-D 00:00: ([place] (BROMFED 00 times Medical DM) 2-30-10 daily as Bran ch mg/5 mL needed for syrup Congestion /Allergies . bromphenira 2021-02 Yes [id number] 5mL Take 5 mL [facility] mine-pseudo 1-07 by mouth 4 it y of ephedrine-D 00:00: (four[place] (BROMFED 00 times Medical DM) 2-30-10 daily as Bran ch mg/5 mL needed for syrup Congestion /Allergies . bromphenira 2021-02 Yes [id number] 5mL Take 5 mL [facility] mine-pseudo 1-07 by mouth 4 it y of ephedrine-D 00:00: (four[place] (BROMFED 00 times Medical DM) 2-30-10 daily as Bran ch mg/5 mL needed for syrup Congestion /Allergies . bromphenira 2021-02 Yes [id number] 5mL Take 5 mL [facility] mine-pseudo 1-07 by mouth 4 it y of ephedrine-D 00:00: (four[place] (BROMFED 00 times Medical DM) 2-30-10 daily as Bran ch mg/5 mL needed for syrup Congestion /Allergies . bromphenira 2021-02 Yes [id number] 5mL Take 5 mL [facility] mine-pseudo 1-07 by mouth 4 it y of ephedrine-D 00:00: ([place] (BROMFED 00 times Medical DM) 2-30-10 daily as Bran ch mg/5 mL needed for syrup Congestion /Allergies . bromphenira 2021-02 Yes [id number] 5mL Take 5 mL [facility] mine-pseudo 1-07 by mouth 4 it y of ephedrine-D 00:00: (four[place] (BROMFED 00 times Medical DM) 2-30-10 daily as Bran ch mg/5 mL needed for syrup Congestion /Allergies . bromphenira 2021-02 Yes [id number] 5mL Take 5 mL [facility] mine-pseudo 1-07 by mouth 4 it y of ephedrine-D 00:00: (four[place] (BROMFED 00 times Medical DM) 2-10 daily as Bran ch mg/5 mL needed for syrup Congestion /Allergies . ondansetron 2021-02- No [id number] 4mg Univers (ZOFRAN-ODT 02-13 ity of ) 15:30: 14:43 [place] disintegrat 00 :00 Medical ing tablet Branch 4 mg ondansetron 2021-02- No [id number] 4mg 4 mg, Univers (ZOFRAN-ODT 02-13 Oral, ity of ) 15:30: 14:43 ONCE, 1 [place] disintegrat 00 :00 dose, On Medi carlos ing tablet Ara Branch 4 mg 12/14/21 at 1030, Routine bromphenira 2021-02- No [id number] 5mL Take 5 mL [facility] mine-pseudo 02-13 by mouth 4 i ty of ephedrine-D 00:00: 05:59 (four) [place] as M 2- 00 :00 times Medical mg/5 mL daily as Branch syrup needed for Congestion /Allergies for up to 5 days. oseltamivir 2021-02- No [id number] 75mg Take 1 [facility] (TAMIFLU) 02-13 capsule by ity of 75 mg 00:00: 05:59 mouth in [place] capsule 00 :00 the Medical morning Branch and 1 capsule in the evening. Do all this for 5 days. bromphenira 2021-02- No [id number] 5mL Take 5 mL [facility] mine-pseudo 02-13 by mouth 4 i ty of ephedrine-D 00:00: 05:59 (four) [place] M 230-10 00 :00 times Medical mg/5 mL daily as Branch syrup needed for Congestion /Allergies for up to 5 days. oseltamivir 2021-02- No [id number] 75mg Take 1 [facility] (TAMIFLU) 02-13 capsule by ity of 75 mg 00:00: 05:59 mouth in [place] capsule 00 :00 the Medical morning Branch and 1 capsule in the evening. Do all this for 5 days. oseltamivir 2021-02- No [id number] 75mg Take 1 [facility] (TAMIFLU) 02-13 capsule by ity of 75 mg 00:00: 05:59 mouth in [place] capsule 00 :00 the Medical morning Branch and 1 capsule in the evening. Do all this for 5 days. oseltamivir 2021-02- No [id number] 75mg Take 1 [facility] (TAMIFLU) 02-13 capsule by ity of 75 mg 00:00: 05:59 mouth in [place] capsule 00 :00 the Medical morning Branch and 1 capsule in the evening. Do all this for 5 days. bromphenira 2021-02- No [id number] 5mL Take 5 mL [facility] mine-pseudo 02-13 by mouth 4 i ty of ephedrine-D 00:00: 00:00 (four) [place] as M 230-10 00 :00 times Medical mg/5 mL daily as Branch syrup needed for Congestion /Allergies for up to 5 days. amoxicillin 2021- No [id number] 1{tbl} Take 1 Univers -clavulanat 8- 08-18 tablet by it y of e 00:00: 04:59 mouth in [place] (AUGMENTIN) 00 :00 the Medical 875-125 mg morning Branch per tablet and 1 tablet in the evening. Do all this for 10 days. amoxicillin 2021- No [id number] 1{tbl} Take 1 Univers -clavulanat 8-07 08-18 tablet by it y of e 00:00: 04:59 mouth in [place] (AUGMENTIN) 00 :00 the Medical 875-125 mg morning Branch per tablet and 1 tablet in the evening. Do all this for 10 days. polymyxin B 2021- No [id number] 1[drp] Place 1 [facility] sulf-trimet 8- 08-15 Drop in ity of hoprim 00:00: 04:59 left eye [place] 10,000 00 :00 every 6 Medical unit- 1 (six) Branch mg/mL hours for ophthalmic 7 days. drops polymyxin B 2021- No [id number] 1[drp] Place 1 [facility] sulf-trimet 8-07 08-15 Drop in ity of hoprim 00:00: 04:59 left eye [place] 10,000 00 :00 every 6 Medical unit- 1 (six) Branch mg/mL hours for ophthalmic 7 days. drops predniSONE 2021- No [id number] 10mg Take 1 Univers 10 mg 09-17 tablet by ity of tablet 00:00: 04:59 mouth in [place] 00 :00 the [facility] for 3 days. predniSONE 2021- No [id number] 10mg Take 1 Univers 10 mg 809-21 tablet by ity of tablet 00:00: 04:59 mouth in [place] 00 :00 [facility] for 3 days. penicillin 2021- No [id number] 1.210 U nivers g 08-23 07 ity of benzathine 16:15: 15:10 [place] (BICILLIN 00 :00 Medical L-A) Branch injection 1.2 Million Units penicillin 2021- No [id number] 1.210 1.2 U nivers g 08-23 07 Million ity of benzathine 16:15: 15:10 [place] (BICILLIN 00 :00 Intramuscu Medi carlos L-A) lar, ONCE, Branch injection 1 dose, On 1.2 Million Wed Units 08/23/21 at 1115, WILY
Re ason for Anti-Infec tive: Documented Infection< br>Documen manfred Infection Site: HEENT
D uration of Therapy: Other (see Comments) bromphenira Yes [id number] 5mL Take 5 mL [facility] mine-pseudo 7-13 by mouth 4 it y of ephedrine-D 00:00: (four) [place] (BROMFED 00 times Medical DM) 2-30-10 daily as Bran ch mg/5 mL needed for syrup Congestion /Allergies . bromphenira Yes [id number] 5mL Take 5 mL [facility] mine-pseudo 7-13 by mouth 4 it y of ephedrine-D 00:00: (four[place] (BROMFED 00 times Medical DM) 2-30-10 daily as Bran ch mg/5 mL needed for syrup Congestion /Allergies . bromphenira Yes [id number] 5mL Take 5 mL [facility] mine-pseudo 7-13 by mouth 4 it y of ephedrine-D 00:00: (four[place] (BROMFED 00 times Medical DM) 2-30-10 daily as Bran ch mg/5 mL needed for syrup Congestion /Allergies . bromphenira 0 Yes [id number] 5mL Take 5 mL [facility] mine-pseudo 7-13 by mouth 4 it y of ephedrine-D 00:00: (four) [place] srivastava M (BROMFED 00 times Medical DM) 2-30-10 daily as Bran ch mg/5 mL needed for syrup Congestion /Allergies . bromphenira 2021- No [id number] 5mL Take 5 mL [facility] mine-pseudo 7-13 11-03 by mouth 4 i ty of ephedrine-D 00:00: 00:00 (four) [place] (BROMFED 00 :00 times Medical DM) 2-30-10 daily as Bran ch mg/5 mL needed for syrup Congestion /Allergies . ARIPiprazol Yes 2mg Take 2 mg U nivers e (ABILIFY) 4-03 by mouth ity of 2 mg tablet 15:45: daily. [address] ARIPiprazol Yes 2mg Take 2 mg U nivers e (ABILIFY) 4-03 by mouth ity of 2 mg tablet 15:45: daily. [address] ARIPiprazol Yes 2mg Take 2 mg U nivers e (ABILIFY) 4-03 by mouth ity of 2 mg tablet 15:45: daily. [address] ARIPiprazol 0 Yes 2mg Take 2 mg U nivers e (ABILIFY) 4-03 by mouth ity of 2 mg tablet 15:45: daily. [address] ARIPiprazol 0 Yes 2mg Take 2 mg U nivers e (ABILIFY) 4-03 by mouth ity of 2 mg tablet 15:45: daily. [address] ARIPiprazol 0 Yes 2mg Take 2 mg U nivers e (ABILIFY) 4-03 by mouth ity of 2 mg tablet 15:45: daily. [address] ARIPiprazol 0 Yes 2mg Take 2 mg U nivers e (ABILIFY) 4-03 by mouth ity of 2 mg tablet 15:45: daily. [address] ARIPiprazol 0 Yes 2mg Take 2 mg U nivers e (ABILIFY) 4-03 by mouth ity of 2 mg tablet 15:45: daily. [address] ARIPiprazol 0 Yes 2mg Take 2 mg U nivers e (ABILIFY) 4-03 by mouth ity of 2 mg tablet 15:45: daily. [address] ARIPiprazol 0 Yes 2mg Take 2 mg U nivers e (ABILIFY) 4-03 by mouth ity of 2 mg tablet 15:45: daily. [address] ARIPiprazol 0 Yes 2mg Take 2 mg U nivers e (ABILIFY) 4-03 by mouth ity of 2 mg tablet 15:45: daily. [address] ARIPiprazol 0 Yes 2mg Take 2 mg U nivers e (ABILIFY) 4-03 by mouth ity of 2 mg tablet 15:45: daily. [address] ARIPiprazol 0 Yes 2mg Take 2 mg U nivers e (ABILIFY) 4-03 by mouth ity of 2 mg tablet 15:45: daily. [address] ARIPiprazol Yes 2mg Take 2 mg U nivers e (ABILIFY) 4-03 by mouth ity of 2 mg tablet 15:45: daily. [address] ARIPiprazol 0 Yes 2mg Take 2 mg U nivers e (ABILIFY) 4-03 by mouth ity of 2 mg tablet 15:45: daily. [address] ARIPiprazol 0 Yes 2mg Take 2 mg U nivers e (ABILIFY) 4-03 by mouth ity of 2 mg tablet 15:45: daily. [address] ARIPiprazol 0 Yes 2mg Take 2 mg U nivers e (ABILIFY) 4-03 by mouth ity of 2 mg tablet 15:45: daily. [address] ARIPiprazol 0 Yes 2mg Take 2 mg U nivers e (ABILIFY) 4-03 by mouth ity of 2 mg tablet 15:45: daily. [address] ARIPiprazol Yes 2mg Take 2 mg U nivers e (ABILIFY) 4-03 by mouth ity of 2 mg tablet 15:45: daily. [address] ARIPiprazol Yes 2mg Take 2 mg U nivers e (ABILIFY) 4-03 by mouth ity of 2 mg tablet 15:45: daily. [address] ARIPiprazol Yes 2mg Take 2 mg U nivers e (ABILIFY) 4-03 by mouth ity of 2 mg tablet 15:45: daily. [address] ARIPiprazol Yes 2mg Take 2 mg U nivers e (ABILIFY) 4-03 by mouth ity of 2 mg tablet 15:45: daily. [address] ARIPiprazol Yes 2mg Take 2 mg U nivers e (ABILIFY) 4-03 by mouth ity of 2 mg tablet 15:45: daily. [address] ARIPiprazol Yes 2mg Take 2 mg U nivers e (ABILIFY) 4-03 by mouth ity of 2 mg tablet 15:45: daily. [address] ARIPiprazol Yes 2mg Take 2 mg U nivers e (ABILIFY) 4-03 by mouth ity of 2 mg tablet 15:45: daily. [address] ARIPiprazol Yes 2mg Take 2 mg U nivers e (ABILIFY) 4-03 by mouth ity of 2 mg tablet 15:45: daily. [address] ARIPiprazol Yes 2mg Take 2 mg U nivers e (ABILIFY) 4-03 by mouth ity of 2 mg tablet 15:45: daily. [address] ARIPiprazol Yes 2mg Take 2 mg U nivers e (ABILIFY) 4-03 by mouth ity of 2 mg tablet 15:45: daily. [address] ARIPiprazol Yes 2mg Take 2 mg U nivers e (ABILIFY) 4-03 by mouth ity of 2 mg tablet 15:45: daily. [address] ARIPiprazol Yes 2mg Take 2 mg U nivers e (ABILIFY) 4-03 by mouth ity of 2 mg tablet 15:45: daily. [address] ARIPiprazol Yes 2mg Take 2 mg U nivers e (ABILIFY) 4-03 by mouth ity of 2 mg tablet 15:45: daily. [address] aluminum Yes [id number] Apply to Univers chloride 4-15 affected ity of (DRYSOL) 20 00:00: areas on [place] % external 00 palms Medical solution nightly as Branc h tolerated for one week then decrease to every other night aluminum Yes [id number] Apply to [facility] chloride 4-15 affected ity of (DRYSOL) 20 00:00: [place] % external 00 palms Medical solution nightly as Branc h tolerated for one week then decrease to every other night aluminum Yes [id number] Apply to [facility] chloride 4-15 affected ity of (DRYSOL) 20 00:00: [place] % external 00 palms Medical solution nightly as Branc h tolerated for one week then decrease to every other night aluminum Yes [id number] Apply to [facility] chloride 4-15 affected ity of (DRYSOL) 20 00:00: areas [place] % external 00 palms Medical solution nightly as Branc h tolerated for one week then decrease to every other night aluminum Yes [id number] Apply to Univers chloride 4-15 affected ity of (DRYSOL) 20 00:00: areas [place] % external 00 palms Medical solution nightly as Branc h tolerated for one week then decrease to every other night aluminum Yes [id number] Apply to [facility] chloride 4-15 affected ity of (DRYSOL) 20 00:00: areas [place] % external 00 palms Medical solution nightly as Branc h tolerated for one week then decrease to every other night aluminum 2019-0 Yes [id number] Apply to [facility] chloride 4-15 affected ity of (DRYSOL) 20 00:00: areas [place] % external 00 palms Medical solution nightly as Branc h tolerated for one week then decrease to every other night aluminum 2019-0 Yes [id number] Apply to [facility] chloride 4-15 affected ity of (DRYSOL) 20 00:00: areas [place] % external 00 palms Medical solution nightly as Branc h tolerated for one week then decrease to every other night aluminum 2019-0 Yes [id number] Apply to [facility] chloride 4-15 affected ity of (DRYSOL) 20 00:00: areas [place] % external 00 palms Medical solution nightly as Branc h tolerated for one week then decrease to every other night aluminum 20190 Yes [id number] Apply to Univers chloride 4-15 affected ity of (DRYSOL) 20 00:00: areas [place] % external 00 palms Medical solution nightly as Branc h tolerated for one week then decrease to every other night aluminum 20190 Yes [id number] Apply to [facility] chloride 4-15 affected ity of (DRYSOL) 20 00:00: areas [place] % external 00 palms Medical solution nightly as Branc h tolerated for one week then decrease to every other night aluminum 2019-0 Yes [id number] Apply to [facility] chloride 4-15 affected ity of (DRYSOL) 20 00:00: areas [place] % external 00 palms Medical solution nightly as Branc h tolerated for one week then decrease to every other night aluminum 2019-0 Yes [id number] Apply to [facility] chloride 4-15 affected ity of (DRYSOL) 20 00:00: areas [place] % external 00 palms Medical solution nightly as Branc h tolerated for one week then decrease to every other night aluminum 2019-0 Yes [id number] Apply to [facility] chloride 4-15 affected ity of (DRYSOL) 20 00:00: areas [place] % external 00 palms Medical solution nightly as Branc h tolerated for one week then decrease to every other night aluminum 2019-0 Yes [id number] Apply to [facility] chloride 4-15 affected ity of (DRYSOL) 20 00:00: areas [place] % external 00 palms Medical solution nightly as Branc h tolerated for one week then decrease to every other night aluminum 2019-0 Yes [id number] Apply to [facility] chloride 4-15 affected ity of (DRYSOL) 20 00:00: areas [place] % external 00 palms Medical solution nightly as Branc h tolerated for one week then decrease to every other night aluminum 2019-0 Yes [id number] Apply to [facility] chloride 4-15 affected ity of (DRYSOL) 20 00:00: areas [place] % external 00 palms Medical solution nightly as Branc h tolerated for one week then decrease to every other night aluminum 2018-0 Yes [id number] Apply to [facility] chloride 4-15 affected ity of (DRYSOL) 20 00:00: areas [place] % external 00 palms Medical solution nightly as Branc h tolerated for one week then decrease to every other night aluminum 2019-0 Yes [id number] Apply to [facility] chloride 4-15 affected ity of (DRYSOL) 20 00:00: areas [place] % external 00 palms Medical solution nightly as Branc h tolerated for one week then decrease to every other night aluminum 2019-0 Yes [id number] Apply to [facility] chloride 4-15 affected ity of (DRYSOL) 20 00:00: areas on [place] % external 00 palms Medical solution nightly as Branc h tolerated for one week then decrease to every other night aluminum 2019-0 Yes [id number] Apply to [facility] chloride 4-15 affected ity of (DRYSOL) 20 00:00: areas on [place] % external 00 palms Medical solution nightly as Branc h tolerated for one week then decrease to every other night aluminum 2019-0 Yes [id number] Apply to [facility] chloride 4-15 affected ity of (DRYSOL) 20 00:00: areas on [place] % external 00 palms Medical solution nightly as Branc h tolerated for one week then decrease to every other night aluminum 2019-0 Yes [id number] Apply to [facility] chloride 4-15 affected ity of (DRYSOL) 20 00:00: areas on [place] % external 00 palms Medical solution nightly as Branc h tolerated for one week then decrease to every other night aluminum 2019 Yes [id number] Apply to [facility] chloride 4-15 affected ity of (DRYSOL) 20 00:00: areas on [place] % external 00 palms Medical solution nightly as Branc h tolerated for one week then decrease to every other night aluminum Yes [id number] Apply to [facility] chloride 4-15 affected ity of (DRYSOL) 20 00:00: areas on [place] % external 00 palms Medical solution nightly as Branc h tolerated for one week then decrease to every other night aluminum Yes [id number] Apply to [facility] chloride 4-15 affected ity of (DRYSOL) 20 00:00: areas on [place] % external 00 palms Medical solution nightly as Branc h tolerated for one week then decrease to every other night aluminum Yes [id number] Apply to Univers chloride 4-15 affected ity of (DRYSOL) 20 00:00: areas on [place] % external 00 palms Medical solution nightly as Branc h tolerated for one week then decrease to every other night aluminum Yes [id number] Apply to [facility] chloride 4-15 affected ity of (DRYSOL) 20 00:00: areas on [place] % external 00 palms Medical solution nightly as Branc h tolerated for one week then decrease to every other night aluminum Yes [id number] Apply to [facility] chloride 4-15 affected ity of (DRYSOL) 20 00:00: areas on [place] % external 00 palms Medical solution nightly as Branc h tolerated for one week then decrease to every other night aluminum Yes [id number] Apply to [facility] chloride 4-15 affected ity of (DRYSOL) 20 00:00: areas on [place] % external 00 palms Medical solution nightly as Branc h tolerated for one week then decrease to every other night aluminum Yes [id number] Apply to [facility] chloride 4-15 affected ity [...] daily. clindamycin 2019-0 Yes Apply to Un deel -benzoyl 2-20 area(s) ity of peroxide 00:00: [...] 20 mg 2-04 ity of capsule 00:00: [place] [facility] FLUoxetine 2018-1 Yes Univers 20 mg 2-04 ity of capsule 00:00: [place] [facility] FLUoxetine 2018- Yes Univers 20 mg 2-04 ity of capsule 00:00: [place] [facility] FLUoxetine 2018- Yes Univers 20 mg 2-04 ity of capsule 00:00: [place] [facility] FLUoxetine 2018- Yes Univers 20 mg 2-04 ity of capsule 00:00: [place] [facility] FLUoxetine 2018- Yes Univers 20 mg 2-04 ity of capsule 00:00: [place] [facility] FLUoxetine 2018- Yes Univers 20 mg 2-04 ity of capsule 00:00: [place] [address] Medical Branch FLUoxetine 2018- Yes Univers 20 mg 2-04 ity of capsule 00:00: [place] [address] Medical Branch FLUoxetine 2017- Yes Univers 20 mg 2-04 ity of capsule 00:00: [place] [address] Medical Branch FLUoxetine 2018- Yes Univers 20 mg 2-04 ity of capsule 00:00: [place] [facility] FLUoxetine 2018- Yes Univers 20 mg 2-04 ity of capsule 00:00: [place] [facility] FLUoxetine 2018- Yes Univers 20 mg 2-04 ity of capsule 00:00: [place] [facility] FLUoxetine 2018- Yes Univers 20 mg 2-04 ity of capsule 00:00: [place] [facility] FLUoxetine 2018- Yes Univers 20 mg 2-04 ity of capsule 00:00: [place] [address] Medical Branch FLUoxetine 2018- Yes Univers 20 mg 2-04 ity of capsule 00:00: [place] [facility] FLUoxetine 2018- Yes Univers 20 mg 2-04 ity of capsule 00:00: [place] [facility] FLUoxetine 2018- Yes Univers 20 mg 2-04 ity of capsule 00:00: [place] [facility] FLUoxetine 2018- Yes Univers 20 mg 2-04 ity of capsule 00:00: [place] [facility] FLUoxetine 2018- Yes Univers 20 mg 2-04 ity of capsule 00:00: [place] [facility] FLUoxetine 2018- Yes Univers 20 mg 2-04 ity of capsule 00:00: [place] [address] Medical Branch FLUoxetine 2018- Yes Univers 20 mg 2-04 ity of capsule 00:00: [place] [facility] FLUoxetine 2018- Yes Univers 20 mg 2-04 ity of capsule 00:00: [place] 00 Medical Branch FLUoxetine 2018- Yes Univers 20 mg 2-04 ity of capsule 00:00: [place] 00 Medical Branch FLUoxetine 2018- Yes Univers 20 mg 2-04 ity of capsule 00:00: [place] 00 Medical Branch Immunizations Ordered Filled Immunization Date Status Comments [facility] e Immunization Name Name SARS-COV-2 COVID-19 2021-04-29 [...] Unive rsity of PFIZER VACCINE 00:00:00 [place] [facility] carlos Branch SARS-COV-2 COVID-19 2020-05-25 Completed Unive rsity of PFIZER VACCINE 00:00:00 [place] [facility]i carlos Branch SARS-COV-2 COVID-19 2020-05-25 Completed Unive rsity of PFIZER VACCINE 00:00:00 [place] [facility] carlos Branch SARS-COV-2 COVID-19 2020-05-25 Completed Unive rsity of PFIZER VACCINE 00:00:00 [place] Medi carlos Branch SARS-COV-2 COVID-19 2020-05-25 Completed Unive rsity of PFIZER VACCINE 00:00:00 [place] [facility] carlos Branch SARS-COV-2 COVID-19 2020-05-25 Completed Unive rsity of PFIZER VACCINE 00:00:00 [place] [facility] carlos Branch SARS-COV-2 COVID-19 2020-05-25 Completed Unive rsity of PFIZER VACCINE 00:00:00 [place] [facility] carlos Branch SARS-COV-2 COVID-19 2020-05-25 Completed Unive rsity of PFIZER VACCINE 00:00:00 [place] [facility] carlos Branch SARS-COV-2 COVID-19 2020-05-25 Completed Unive rsity of PFIZER VACCINE 00:00:00 [facility] SARS-COV-2 COVID-19 2020-05-25 Completed Unive rsity of PFIZER VACCINE 00:00:00 [facility] Branch SARS-COV-2 COVID-19 2020-05-25 Completed Unive rsity of PFIZER VACCINE 00:00:00 [facility] SARS-COV-2 COVID-19 2020-05-25 Completed Unive rsity of PFIZER VACCINE 00:00:00 [facility] Branch SARS-COV-2 COVID-19 2020-05-25 Completed Unive rsity of PFIZER VACCINE 00:00:00 [facility] SARS-COV-2 COVID-19 2020-05-25 Completed Unive rsity of PFIZER VACCINE 00:00:00 [facility] SARS-COV-2 COVID-19 2020-05-25 Completed Unive rsity of PFIZER VACCINE 00:00:00 [facility] SARS-COV-2 COVID-19 2020-05-25 Completed Unive rsity of PFIZER VACCINE 00:00:00 [facility] Branch SARS-COV-2 COVID-19 2020-05-25 Completed Unive rsity of PFIZER VACCINE 00:00:00 [facility] SARS-COV-2 COVID-19 2020-05-25 Completed Unive rsity of PFIZER VACCINE 00:00:00 [facility] SARS-COV-2 COVID-19 2020-05-25 Completed Unive rsity of PFIZER VACCINE 00:00:00 [facility] SARS-COV-2 COVID-19 2020-05-25 Completed Unive rsity of PFIZER VACCINE 00:00:00 [facility] Branch SARS-COV-2 COVID-19 2020-05-25 Completed Unive rsity of PFIZER VACCINE 00:00:00 [facility] SARS-COV-2 COVID-19 2020-05-25 Completed Unive rsity of PFIZER VACCINE 00:00:00 [facility] SARS-COV-2 COVID-19 2020-05-25 Completed Unive rsity of PFIZER VACCINE 00:00:00 [facility] SARS-COV-2 COVID-19 2020-05-25 Completed Unive rsity of PFIZER VACCINE 00:00:00 [place] [facility] car[facility] Branch SARS-COV-2 COVID-19 2020-05-25 Completed Unive rsity of PFIZER VACCINE 00:00:00 [facility] Branch SARS-COV-2 COVID-19 2020-05-25 Completed Unive rsity of PFIZER VACCINE 00:00:00 [facility] Branch SARS-COV-2 COVID-19 2020-05-25 Completed Unive rsity of PFIZER VACCINE 00:00:00 [facility] Branch SARS-COV-2 COVID-19 2020-05-25 Completed Unive rsity of PFIZER VACCINE 00:00:00 [facility] Branch SARS-COV-2 COVID-19 2020-05-25 Completed Unive rsity of PFIZER VACCINE 00:00:00 [facility] Branch SARS-COV-2 COVID-19 2020-05-25 Completed Unive rsity of PFIZER VACCINE 00:00:00 [facility] Branch SARS-COV-2 COVID-19 2020-05-25 Completed Unive rsity of PFIZER VACCINE 00:00:00 [facility] Branch SARS-COV-2 COVID-19 2020-05-04 Completed Unive rsity of PFIZER VACCINE 00:00:00 [facility] Branch SARS-COV-2 COVID-19 2020-05-04 Completed Unive rsity of PFIZER VACCINE 00:00:00 [facility] Branch SARS-COV-2 COVID-19 2020-05-04 Completed Unive rsity of PFIZER VACCINE 00:00:00 [facility] Branch SARS-COV-2 COVID-19 2020-05-04 Completed Unive rsity of PFIZER VACCINE 00:00:00 [facility] Branch SARS-COV-2 COVID-19 2020-05-04 Completed Unive rsity of PFIZER VACCINE 00:00:00 [facility] Branch SARS-COV-2 COVID-19 2020-05-04 Completed Unive rsity of PFIZER VACCINE 00:00:00 [facility] Branch SARS-COV-2 COVID-19 2020-05-04 Completed Unive rsity of PFIZER VACCINE 00:00:00 [facility] SARS-COV-2 COVID-19 2020-05-04 Completed Unive rsity of PFIZER VACCINE 00:00:00 [facility] Branch SARS-COV-2 COVID-19 2020-05-04 Completed Unive rsity of PFIZER VACCINE 00:00:00 [facility] [facility] SARS-COV-2 COVID-19 2020-05-04 Completed Unive rsity of PFIZER VACCINE 00:00:00 [facility] SARS-COV-2 COVID-19 2020-05-04 Completed Unive rsity of PFIZER VACCINE 00:00:00 [facility] SARS-COV-2 COVID-19 2020-05-04 Completed Unive rsity of PFIZER VACCINE 00:00:00 [facility] SARS-COV-2 COVID-19 2020-05-04 Completed Unive rsity of PFIZER VACCINE 00:00:00 [facility] SARS-COV-2 COVID-19 2020-05-04 Completed Unive rsity of PFIZER VACCINE 00:00:00 [facility] SARS-COV-2 COVID-19 2020-05-04 Completed Unive rsity of PFIZER VACCINE 00:00:00 [facility] SARS-COV-2 COVID-19 2020-05-04 Completed Unive rsity of PFIZER VACCINE 00:00:00 [facility] SARS-COV-2 COVID-19 2020-05-04 Completed Unive rsity of PFIZER VACCINE 00:00:00 [facility] SARS-COV-2 COVID-19 2020-05-04 Completed Unive rsity of PFIZER VACCINE 00:00:00 [facility] SARS-COV-2 COVID-19 2020-05-04 Completed Unive rsity of PFIZER VACCINE 00:00:00 [facility] SARS-COV-2 COVID-19 2020-05-04 Completed Unive rsity of PFIZER VACCINE 00:00:00 [facility] SARS-COV-2 COVID-19 2020-05-04 Completed Unive rsity of PFIZER VACCINE 00:00:00 [facility] SARS-COV-2 COVID-19 2020-05-04 Completed Unive rsity of PFIZER VACCINE 00:00:00 [facility] SARS-COV-2 COVID-19 2020-05-04 Completed Unive rsity of PFIZER VACCINE 00:00:00 [facility] SARS-COV-2 COVID-19 2020-05-04 Completed Unive rsity of PFIZER VACCINE 00:00:00 [facility] SARS-COV-2 COVID-19 2020-05-04 Completed Unive rsity of PFIZER VACCINE 00:00:00 [facility] SARS-COV-2 COVID-19 2020-05-04 Completed Unive rsity of PFIZER VACCINE 00:00:00 [facility] SARS-COV-2 COVID-19 2020-05-04 Completed Unive rsity of PFIZER VACCINE 00:00:00 [facility] SARS-COV-2 COVID-19 2020-05-04 Completed Unive rsity of PFIZER VACCINE 00:00:00 [facility] SARS-COV-2 COVID-19 2020-05-04 Completed Unive rsity of PFIZER VACCINE 00:00:00 [facility] SARS-COV-2 COVID-19 2020-05-04 Completed Unive rsity of PFIZER VACCINE 00:00:00 [facility] SARS-COV-2 COVID-19 2020-05-04 Completed Unive rsity of PFIZER VACCINE 00:00:00 [facility] Vital Signs Vital Name Observation Time Observation Value Comments Source Systolic blood 2022-08-19 19:14:00 131 mm[Hg] Univer sity of pressure [facility] Diastolic blood 2022-08-19 19:14:00 85 mm[Hg] Unive rsity of pressure [facility] Heart rate 2022-08-19 19:14:00 93 /min [facility] Body temperature 2022-08-19 19:14:00 36.94 Ivone [facility] Respiratory rate 2022-08-19 19:14:00 17 /min [facility] Body height 2022-08-19 19:14:00 165.1 cm [facility] Body weight 2022-08-19 19:14:00 80.825 kg [facility] BMI 2022-08-19 19:14:00 29.65 kg/m2 [facility] Oxygen saturation in 2022-08-19 19:14:00 97 /min [facility] Arterial blood by [facility] Pulse oximetry Branch Systolic blood 2022-07-20 16:02:00 115 mm[Hg] Univer sity of pressure [facility] Diastolic blood 2022-07-20 16:02:00 85 mm[Hg] Unive rsity of pressure [facility] Heart rate 2022-07-20 16:02:00 89 /min [facility] [place] [facility] Body temperature 2022-07-20 16:02:00 36.94 Ivone [facility] [place] [facility] Respiratory rate 2022-07-20 16:02:00 16 /min [facility] [place] [facility] Body weight 2022-07-20 16:02:00 83.416 kg [facility] [place] [facility] Oxygen saturation in 2022-07-20 16:02:00 97 /min University of Arterial blood by [place] [facility] Pulse oximetry Branch Systolic blood 2022-07-11 16:03:00 130 mm[Hg] Univer sity of pressure [facility] [place] [facility] Diastolic blood 2022-07-11 16:03:00 79 mm[Hg] Unive rsity of pressure [facility] Heart rate 2022-07-11 16:00:00 95 /min [facility] [place] [facility] Body temperature 2022-07-11 16:00:00 36.83 Ivone [facility] [place] [facility] Respiratory rate 2022-07-11 16:00:00 17 /min [facility] [place] [facility] Body height 2022-07-11 16:00:00 165.1 cm [facility] [place] [facility] Body weight 2022-07-11 16:00:00 81.965 kg [facility] [place] [facility] BMI 2022-07-11 16:00:00 30.07 kg/m2 [facility] [place] [facility] Oxygen saturation in 2022-07-11 16:00:00 96 /min University of Arterial blood by [facility] Pulse oximetry Branch Systolic blood 2022-06-02 17:13:00 113 mm[Hg] Univer sity of pressure [facility] [place] [facility] Diastolic blood 2022-06-02 17:13:00 77 mm[Hg] Unive rsity of pressure [facility] [place] [facility] Heart rate 2022-06-02 17:13:00 72 /min [facility] [place] [facility] Body temperature 2022-06-02 17:13:00 36.28 Ivone [facility] [place] [facility] Respiratory rate 2022-06-02 17:13:00 18 /min [facility] [place] [facility] Body height 2022-06-02 17:13:00 167.6 cm [facility] [place] [facility] Body weight 2022-06-02 17:13:00 84.868 kg [facility] [place] [facility] BMI 2022-06-02 17:13:00 30.20 kg/m2 [facility] [place] [facility] Oxygen saturation in 2022-06-02 17:13:00 98 /min [facility] blood by [place] [facility] Pulse oximetry [facility] Body height 2022-06-01 14:02:00 165.1 cm [facility] [place] [facility] Body weight 2022-06-01 14:02:00 85.004 kg [facility] [place] [facility] BMI 2022-06-01 14:02:00 31.18 kg/m2 [facility] [place] [facility] Systolic blood 2022-05-10 20:12:00 134 mm[Hg] Univer sity of pressure [facility] [place] [facility] Diastolic blood 2022-05-10 20:12:00 82 mm[Hg] Unive rsity of pressure [facility] [place] [facility] Heart rate 2022-05-10 20:10:00 108 /min [facility] [place] [facility] Body temperature 2022-05-10 20:10:00 36.89 Ivone [facility] [place] [facility] Respiratory rate 2022-05-10 20:10:00 16 /min [facility] [place] [facility] Body height 2022-05-10 20:10:00 165.1 cm [facility] [place] [facility] Body weight 2022-05-10 20:10:00 85.548 kg [facility] [place] [facility] BMI 2022-05-10 20:10:00 31.38 kg/m2 [facility] [place] [facility] Oxygen saturation in 2022-05-10 20:10:00 99 /min [facility] Arterial blood by [place] [facility] Pulse oximetry Branch Systolic blood 2022-05-04 00:58:00 148 mm[Hg] Univer sity of pressure [facility] [place] [facility] Diastolic blood 2022-05-04 00:58:00 80 mm[Hg] Unive rsity of pressure [facility] [place] [facility] Heart rate 2022-05-04 00:58:00 98 /min [facility] [place] [facility] Body temperature 2022-05-04 00:58:00 37.28 Ivone [facility] [place] [facility] Respiratory rate 2022-05-04 00:58:00 24 /min [facility] [place] [facility] Body height 2022-05-04 00:58:00 165.1 cm [facility] [place] [facility] Body weight 2022-05-04 00:58:00 85.049 kg [facility] [place] [facility] BMI 2022-05-04 00:58:00 31.20 kg/m2 [facility] [place] [facility] Oxygen saturation in 2022-05-04 00:58:00 99 /min [facility] Arterial blood by [facility] Pulse oximetry Branch Systolic blood 2022-04-26 14:51:00 139 mm[Hg] Univer sity of pressure [facility] [place] [facility] Diastolic blood 2022-04-26 14:51:00 88 mm[Hg] Unive rsity of pressure [facility] [place] [facility] Heart rate 2022-04-26 14:50:00 112 /min [facility] [place] [facility] Body temperature 2022-04-26 14:50:00 38.11 Ivone [facility] [place] [facility] Respiratory rate 2022-04-26 14:50:00 16 /min [facility] [place] [facility] Body height 2022-04-26 14:50:00 165.1 cm [facility] [place] [facility] Body weight 2022-04-26 14:50:00 86.501 kg [facility] [place] [facility] BMI 2022-04-26 14:50:00 31.73 kg/m2 [facility] [place] [facility] Oxygen saturation in 2022-04-26 14:50:00 96 /min [facility] Arterial blood by [facility] Pulse oximetry Branch Systolic blood 2022-04-12 19:10:00 129 mm[Hg] Univer sity of pressure [facility] [place] [facility] Diastolic blood 2022-04-12 19:10:00 84 mm[Hg] Unive rsity of pressure [facility] [place] [facility] Heart rate 2022-04-12 19:10:00 90 /min [facility] [place] [facility] Body temperature 2022-04-12 19:10:00 37.06 Ivone [facility] [place] [facility] Respiratory rate 2022-04-12 19:10:00 18 /min [facility] [place] [facility] Body height 2022-04-12 19:10:00 165.1 cm [facility] [place] [facility] Body weight 2022-04-12 19:10:00 85.503 kg [facility] [place] [facility] BMI 2022-04-12 19:10:00 31.37 kg/m2 [facility] [place] [facility] Oxygen saturation in 2022-04-12 19:10:00 99 /min [facility] Arterial blood by [facility] Pulse oximetry Branch Systolic blood 2021-12-18 16:02:00 127 mm[Hg] Univer sity of pressure [facility] [place] [facility] Diastolic blood 2021-12-18 16:02:00 85 mm[Hg] Unive rsity of pressure [facility] [place] [facility] Heart rate 2021-12-18 16:02:00 82 /min [facility] [place] [facility] Body temperature 2021-12-18 16:02:00 36.44 Ivone [facility] [place] [facility] Respiratory rate 2021-12-18 16:02:00 18 /min [facility] [place] [facility] Body height 2021-12-18 16:02:00 165.2 cm [facility] [place] [facility] Body weight 2021-12-18 16:02:00 83.008 kg [facility] [place] [facility] BMI 2021-12-18 16:02:00 30.43 kg/m2 [facility] [place] [facility] Oxygen saturation in 2021-12-18 16:02:00 98 /min [facility] Arterial blood by [facility] Pulse oximetry Branch Systolic blood 2021-12-14 14:35:00 123 mm[Hg] Univer sity of pressure [facility] [place] [facility] Diastolic blood 2021-12-14 14:35:00 69 mm[Hg] Unive rsity of pressure [facility] [place] [facility] Heart rate 2021-12-14 14:35:00 109 /min [facility] [place] [facility] Body temperature 2021-12-14 14:35:00 37 Ivone [facility] [place] [facility] Respiratory rate 2021-12-14 14:35:00 16 /min [facility] [place] [facility] Body weight 2021-12-14 14:35:00 83.371 kg [facility] [place] [facility] Oxygen saturation in 2021-12-14 14:35:00 98 /min [facility] Arterial blood by [facility] Pulse oximetry Branch Systolic blood 2021-09-17 17:33:00 119 mm[Hg] Univer sity of pressure [place] [facility] Diastolic blood 2021-09-17 17:33:00 84 mm[Hg] Unive rsity of pressure [facility] Heart rate 2021-09-17 17:33:00 96 /min [facility] [place] [facility] Body temperature 2021-09-17 17:33:00 37.11 Ivone [facility] [place] [facility] Respiratory rate 2021-09-17 17:33:00 16 /min [facility] [place] [facility] Body height 2021-09-17 17:33:00 165.1 cm [facility] Body weight 2021-09-17 17:33:00 83.008 kg [facility] [place] [facility] BMI 2021-09-17 17:33:00 30.45 kg/m2 [facility] [place] [facility] Oxygen saturation in 2021-09-17 17:33:00 98 /min [facility] Arterial blood by [place] [facility] Pulse oximetry Branch Systolic blood 2021-09-07 17:21:00 129 mm[Hg] Univer sity of pressure [facility] [place] [facility] Diastolic blood 2021-09-07 17:21:00 83 mm[Hg] Unive rsity of pressure [facility] [place] [facility] Heart rate 2021-09-07 17:21:00 72 /min [facility] [place] [facility] Body temperature 2021-09-07 17:21:00 36.89 Ivone [facility] [place] [facility] Respiratory rate 2021-09-07 17:21:00 20 /min [facility] [place] [facility] Body height 2021-09-07 17:21:00 165.1 cm [facility] [place] [facility] Body weight 2021-09-07 17:21:00 81.874 kg [facility] [place] [facility] BMI 2021-09-07 17:21:00 30.04 kg/m2 [facility] [place] [facility] Oxygen saturation in 2021-09-07 17:21:00 98 /min [facility] Arterial blood by [place] [facility] Pulse oximetry Branch Systolic blood 2021-08-23 14:52:00 127 mm[Hg] Univer sity of pressure [facility] [place] [facility] Diastolic blood 2021-08-23 14:52:00 80 mm[Hg] Unive rsity of pressure [facility] [place] [facility] Heart rate 2021-08-23 14:52:00 93 /min [facility] Body temperature 2021-08-23 14:52:00 38.17 Ivone [facility] Respiratory rate 2021-08-23 14:52:00 17 /min [facility] Body height 2021-08-23 14:52:00 165.1 cm [facility] Body weight 2021-08-23 14:52:00 81.647 kg [facility] BMI 2021-08-23 14:52:00 29.95 kg/m2 [facility] Oxygen saturation in 2021-08-23 14:52:00 100 /min [facility] Arterial blood by [facility] Pulse oximetry [place] Procedures Procedure Date / Time Performing Clinician Source Performed THROAT CULTURE 2022-08-19 19:57:00 [place] [facility] GC & CHLAMYDIA AMPLIFIED 2022-08-19 19:57:00 Christiano [facility] POCT MOLECULAR FLU 2022-08-19 19:36:00 Unknown, Attending [facility] POCT SARS-COV-2 ANTIGEN 2022-08-19 19:33:00 Christiano [facility] ([facility] POCT MOLECULAR STREP 2022-08-19 19:16:00 Unknown, Attending [facility] POCT MOLECULAR STREP 2022-06-02 17:25:00 Unknown, Attending [facility] XR CHEST 2 VW 2022-05-04 01:26:[address] [facility] RAPID STREP SCREEN FOR 2022-05-04 01:21:00 Tracy Babin [facility] GROUP A Medical Branch CONSENT/REFUSAL FOR 2022-05-04 00:54:30 Doctor Unassigned, [facility] DIAGNOSIS AND TREATMENT [facility] [place] POCT SARS-COV-2 ANTIGEN 2022-04-26 15:04:00 Sathya Vasquez [facility] ([facility]) [facility] POCT MOLECULAR FLU 2022-04-26 14:58:00 Unknown, Attending [facility] POCT MOLECULAR STREP 2022-04-26 14:56:00 Unknown, Attending [facility] POCT MOLECULAR STREP 2022-04-12 19:25:00 Unknown, Attending [facility] ASSIGNMENT OF BENEFITS 2022-04-12 19:01:07 Doctor Unassigned, Un [facility] [place] [facility] POCT MOLECULAR STREP 2021-12-18 16:01:00 Unknown, Attending Univ [facility] POCT MOLECULAR FLU 2021-12-14 14:42:00 Unknown, Attending [facility] POCT MOLECULAR STREP 2021-09-17 17:37:00 Stevie Gregg [facility] COVID-19 (MOLECULAR 2021-09-17 17:35:00 [facility] TESTING [facility] NUCLEIC ACID AMPLIFICATION) LAB ONLY COVID 2021-09-17 17:35:00 Stevie Gregg [facility] [place] INTERPRETATION [facility] POCT MOLECULAR STREP 2021-08-23 14:59:00 Nora Barrera [facility] Encounters Start End Encounter Admission Attending Care Care Encounter Source Date/Time Date/Time Type Type Clinicians Facility Department ID 2022-08-19 2022-08-19 Outpatient R CHRISTIANO [facility] [id number] Univers 14:00:00 15:03:11 [place] [facility] 2022-08-19 2022-08-19 Urgent [place] [facility] 1.2.840.114 [id number] Univers 14:00:00 15:03:11 Care Unknown, Attending HEALTH 350.1.13.10 ity of [place] [id number] Jayson as LILIANA?BLEA [phone] [address] MEDICAL OFFICE [facility] 2022-07-20 2022-07-20 Urgent Sathya Vasquez [facility] 1.2.840.114 [id number] Univers 10:40:00 11:00:00 Care Unknown, Attending HEALTH 350.1.13.10 ity of [place] [id number] Jayson as LILIANA?BLEA [id number] [address] MEDICAL OFFICE [facility] 2022-07-20 2022-07-20 Outpatient R PEDRO [facility] [id number] Univers 10:40:00 10:40:00 [facility] 2022-07-20 2022-07-20 [facility] 1.2.840.114 [id number] Univers 00:00:00 00:00:00 (Out) Ranwi HEALTH [id number] it [facility] [id number] Jayson as LILIANA?BLEA [phone] [address] MEDICAL OFFICE BUILDING 2022-07-12 2022-07-12 Letter STEVEI Graff 1.2.840.114 [id number] Univers 00:00:00 00:00:00 (Out) Cami HALLE 350.1.13.10 it y of [facility] 4.2.7.2.686 Jayson as [id number] [address] 2022-07-11 2022-07-11 [facility] [id number] Univers 10:40:00 11:16:25 [facility] 2022-07-11 2022-07-11 Nora Villanueva [facility] 1.2.840.114 [id number] Univers 10:40:00 11:16:25 Care Unknown, [facility] HEALTH 350.1.13.10 ity of [place] 4.2.7.2.686 Jayson as LILIANA?BLEA [phone] [address] MEDICAL OFFICE [facility] 2022-07-11 2022-07-11 [facility] 1.2.840.114 [id number] Univers 00:00:00 00:00:00 ([facility] [id number] [facility] y of [place] 4.2.7.2.686 Jayson as LILIANA?BLEA [phone] [address] MEDICAL OFFICE [facility] 2022-06-29 2022-06-29 Outpatient R DANA [facility] [id number] Univers 11:15:00 11:15:00 DON [facility] 2022-06-02 2022-06-02 Outpatient R PEDRO [facility] [id number] Univers 12:00:00 12:53:47 [facility] 2022-06-02 2022-06-02 Urgent EbrahimSathya [facility] 1.2.840.114 [id number] Univers 12:00:00 12:20:00 Care Unknown, Attending HEALTH 350.1.13.10 ity of [place] 4.2.7.2.686 Jayson as LILIANA?BLEA [phone] [address] MEDICAL OFFICE [facility] 2022-06-01 2022-06-01 Outpatient R DANA [facility] [id number] Univers 09:30:00 09:39:26 DON ity [facility] 2022-06-01 2022-06-01 Office [facility] [id number] Univers 09:30:00 09:39:26 Visit Don A Landen 350.1.13.10 ity of [facility] 4.2.7.2.686 Jayson as BANK [phone] [facility] BLDG. [address] [place] 2022-05-10 2022-05-10 Urgent Ebludmila, Sathya [facility] 1.2.840.114 [id number] Univers 14:45:00 15:05:00 Care Unknown, Attending HEALTH 350.1.13.10 ity of [place] 4.2.7.2.686 Jayson as LILIANA?BLEA [id number] [address] MEDICAL OFFICE [facility] 2022-05-10 2022-05-10 Outpatient R SHERIELUDMILA, [facility] [id number] Univers 14:45:00 14:45:00 [facility] 2022-05-10 2022-05-10 Letter Soniaralicia, [facility] 1.2.840.114 [id number] Univers 00:00:00 00:00:00 (Out) [facility] [id number] it [facility] 4.2.7.2.686 Jayson as LILIANA?BLEA [id number] [address] MEDICAL OFFICE BUILDING 2022-05-03 2022-05-03 Emergency X BABIN, [facility] ERT [id number] Univers 20:02:00 21:35:00 TRACY ity [facility] 2022-05-03 2022-05-03 Emergency [facility] [id number] Univers 20:02:00 21:35:00 Tracy MELONIE 350.1.13.10 i ty of [place]2.7.2.[place] [id number] [address] 2022-04-30 2022-04-30 Letter [facility] 1.2.840.114 [id number] Univers 00:00:00 00:00:00 (Out) [facility] [id number] it y of [place] 4.2.7.2.686 Jayson as LILIANA?BLEA [id number] [address] MEDICAL OFFICE [facility] 2022-04-26 2022-04-26 [facility]gent [facility] 1.2.840.114 [id number] Univers 09:40:00 10:00:00 Care Unknown, Attending [facility] 350.1.13.10 ity of [place] 4.2.7.2.686 Jayson as LILIANA?BLEA [phone] [address] OFFICE [facility] 2022-04-26 2022-04-26 Outpatient R PEDRO [facility] [id number] Univers 09:40:00 09:40:00 SATHYA itlanden [facility] 2022-04-12 2022-04-12 Urgent Ebaralicia [facility] 1.2.840.114 [id number] Univers 12:40:00 13:00:00 Care Unknown, [place] [id number] ity [facility] 4.2.7.2.686 Jayson as LILIANA?BLEA [phone] [address] MEDICAL OFFICE [facility] 2022-04-12 2022-04-12 Outpatient R PEDRO [facility] [id number] Univers 12:40:00 12:40:00 SATHYA [facility] 2022-04-12 2022-04-12 Orders Doctor [place]ARD 1.2.840.114 [id number] Univers 00:00:00 00:00:00 Only Unassigned, HALLE 350.1.13.10 ity of [place] [facility] 4.2.7.2.686 Jayson as [phone] [address] 2022-04-12 2022-04-12 [facility] 1.2.840.114 [id number] Univers 00:00:00 00:00:00 (Out) [facility] [id number] it [facility] 4.2.7.2.686 Jayson as LILIANA?BLEA [phone] [address] MEDICAL OFFICE [facility] 2022-01-16 2022-01-16 [facility] [id number] Univers 15:15:00 15:15:00 MARIMAR ity [facility] 2021-12-18 2021-12-18 Outpatient [facility] [id number] Univers 09:20:00 10:35:00 NORA whitley [facility] 2021-12-18 2021-12-18 Urgent Nora Barrera [facility] 1.2.840.114 [id number] Univers 09:20:00 10:35:00 Care Unknown, Attending HEALTH 350..13.10 ity of [place] 4.2.7.2.686 Jayson as LILIANA?BLEA [phone] [address] 2021-12-18 2021-12-18 [facility] 1.2.840.114 [id number] Univers 00:00:00 00:00:00 (Out) [facility] 350.1.13.10 it y [facility] 4.2.7.2.686 Jayson as LILIANA?BLEA [phone] [address] OFFICE [facility] 2021-12-14 2021-12-14 Outpatient [facility] [id number] Univers 09:20:00 10:05:42 MITALI courtney [facility] 2021-12-14 2021-12-14 Mitali Huynh [facility] 1.2.840 .114 [id number] Univers 09:20:00 09:40:00 Care Unknown, Attending HEALTH 350..13.10 ity [facility] 4.2.7.2.686 Jayson as LILIANA?BLEA [id number] [address] MEDICAL OFFICE [facility] 2021-12-14 2021-12-14 Letter [facility] [id number] Univers 00:00:00 00:00:00 (Out) [facility] 350.1.13.10 it y of [facility] 4.2.7.2.686 [place] LILIANA?BLEA [phone] [address] OFFICE [facility] 2021-09-18 2021-09-18 Letter STEVIE Zacarias 1.2.840.114 [id number] Univers 00:00:00 00:00:00 (Out) Devorah NERI 350.1.13.10 it y of HOSPITAL 4.2.7.2.686 Jayson as [phone] [address] 2021-09-17 2021-09-17 [facility] [id number] Univers 12:20:00 13:28:37 [facility] 2021-09-17 2021-09-17 [facility] 1.2.840.11 [id number] Univers 12:20:00 13:28:37 Care Marysol [facility] 350.1.13.10 ity of [place] 4.2.7.2.686 Jayson as LILIANA?BLEA [phone] [address] OFFICE [facility] 2021-09-07 2021-09-07 Urgent [facility] 1.2.840.114 [id number] Univers 12:00:00 12:20:00 Care Mitali [facility] 350.1.13.10 ity of [place] 4.2.7.2.686 Jayson as LILIANA?BLEA [phone] [address] 2021-09-07 2021-09-07 Outpatient R ALAN [facility] [id number] Univers 12:00:00 12:00:00 MITALI whitley o f [facility] 2021-08-23 2021-08-23 Outpatient R BRUCE [facility] [id number] Univers 09:40:00 10:09:29 NORA [facility] 2021-08-23 2021-08-23 [facility]gent [facility] 1.2.840.114 [id number] Univers 09:40:00 10:09:29 Care [facility] 350.1.13.10 it y of [place] 4.2.7.2.686 Jayson as LILIANA?BLEA [phone] [address] MEDICAL OFFICE [facility] 2021-08-23 2021-08-23 Outpatient R BRUCE [facility] [id number] Univers 09:40:00 10:09:29 NORA [facility] 2021-05-14 2021-05-14 Outpatient [facility] [id number] Univers 16:00:00 16:04:22 MONROE [facility] 2021-05-14 2021-05-14 Urgent [facility] 1.2.840.114 [id number] Univers 16:00:00 16:04:22 Care [facility] 350.1.13.10 it y of [place] 4.2.7.2.686 Jayson as LILIANA?BLEA [phone] [address] MEDICAL OFFICE [facility] 2021-04-29 2021-04-29 Outpatient R MARYSOL [facility] [id number] Univers 09:00:00 09:14:21 STEVIE [facility] 2021-04-29 2021-04-29 Orders Doctor STEVIE 1.2.840.114 [id number] Univers 00:00:00 00:00:00 Only Unassigned, HALLE 350.1.13.10 ity of [employer] [facility] 4.2.7.2.686 Jayson as [phone] [address] 2021-02-26 2021-02-26 Emergency [facility] [id number] Univers 22:03:00 22:10:00 [facility] 2021-02-26 2021-02-26 Emergency Pedro [facility] 1.2.840.114 [id number] Univers 22:03:00 22:10:00 Sathya WILHELM 350.1.13.10 i ty of [place] [facility] [place] [phone] [facility] [address] 2021-02-20 2021-02-20 Laboratory Only, Ang Db Test [facility] 1.2.8 40.114 [id number] Univers 12:45:00 13:00:00 Only Farrukh Hyman 350.1.13.10 ity [facility] 4.2.7.2.686 Jayson as LILIANA?BLEA [phone] [address] MEDICAL OFFICE [facility] 2021-02-20 2021-02-20 Outpatient R [facility] [id number] Univers 12:45:00 12:45:00 FARRUKH bustoslanden o f [facility] 2021-02-20 2021-02-20 Orders Doctor HUBBARD 1.2.840.114 [id number] Univers 00:00:00 00:00:00 Only Unassigned, HALLE 350.1.13.10 ity of [employer] [facility] 4.2.7.2.686 Jayson as [phone] [facility] [address] 2021-02-17 2021-02-17 Letter STEVIE Zacarias 1.2.840.114 [id number] Univers 00:00:00 00:00:00 (Out) Devorah NERI 350.1.13.10 it y of [facility] 4.2.7.2.686 Jayson as [phone] [facility] [address] 2021-02-15 2021-02-15 Laboratory Only, Ang Db Test [facility] 1.2.8 40.114 [id number] Univers 16:15:00 16:30:00 Only Christiano Monroe myseekit 350.1.13.10 ity of [facility] 4.2.7.2.686 Jayson as LILIANA?BLEA [phone] [address] OFFICE [facility] 2021-02-15 2021-02-15 Outpatient R CHRISTIANO [facility] [id number] Univers 16:15:00 16:15:00 MONROE ity [facility] 2020-05-25 2020-05-25 Outpatient R WILIAM [facility] [id number] Univers 16:00:00 16:07:24 LEA ity [facility] 2020-05-25 2020-05-25 Outpatient R WILIAM, [facility] [id number] Univers 16:00:00 16:00:00 LEA ity [facility] 2020-05-04 2020-05-04 Outpatient [facility] [id number] Univers 16:10:00 15:56:54 LEA ity [facility] 2020-03-19 2020-03-19 STEVIE Guido 1.2.840.114 [id number] Univers 00:00:00 00:00:00 (Out) Chin NERI 350.1.13.10 i ty [facility] 4.2.7.2.686 Jayson as [phone] [address] 2020-03-18 2020-03-18 Laboratory Lab, [facility] I [facility] 1.2. 840.114 [id number] Univers 17:12:54 17:32:54 Only Mitali [facility] 350.1.13.10 ity [facility] 4.2.7.2.686 Jayson as Professio [phone] [address] Office [address] [employer] 2020-03-18 2020-03-18 Outpatient R [facility] [id number] Univers 17:20:00 17:20:00 ity [facility] 2020-03-18 2020-03-18 Outpatient R [facility] [id number] Univers 17:20:00 17:20:00 ity [facility] 2020-03-13 2020-03-13 STEVIE Guido 1.2.840.114 [id number] Univers 00:00:00 00:00:00 (Out) Chin NERI 350.1.13.10 i ty [facility] 4.2.7.2.686 Jayson as [phone] [address] 2020-03-11 2020-03-11 Outpatient R [facility] [id number] Univers 15:40:00 15:40:00 AREN ity [facility] 2020-03-11 2020-03-11 Laboratory Lab, [facility] I [facility] 1.2. 840.114 [id number] Univers 15:06:51 15:26:51 Only [facility] 350.1.13.10 ity of [place] 4.2.7.2.686 Jayson as Professio [phone] Nv dical nal [address] [employer] 2020-02-15 2020-02-15 Letter Deann, STEVIE 1.2.840.114 [id number] Univers 00:00:00 00:00:00 (Out) Devorah Belle HALLE 350.1.13.10 it y of [facility] 4.2.7.2.686 Jayson as [phone] [facility] [address] 2020-02-14 2020-02-14 Nurse Nurse, [facility] 1.2.840.114 [id number] Univers 15:41:47 15:56:47 Visit Unknown, Att[place] 350.1.13.10 ity of [place] 4.[place].7.2.686 [place] [phone] [facility] [address] 2020-02-14 2020-02-14 Outpatient R NORMA, [facility] [id number] Univers 15:45:00 15:45:00 ATTENDING [facility] 2019-05-13 2019-05-13 Outpatient R PAYTON, [facility] [id number] Univers 13:40:00 13:40:00 TACHO [facility] 2019-05-11 2019-05-11 Telephone [facility] 1.2.795.950 [id number] Univers 00:00:00 00:00:00 Lolly Wilhelm 350.1.13.10 i ty of [place] [phone] [facility] 2019-05-11 2019-05-11 Telephone [facility] 1.2.449.267 [id number] 00:00:00 00:00:00 Lolly Anastasiya Melonie 350.1.13.10 [place] 4.2.7.2.686 Professio [phone] [facility] 179 [facility] [address] 2019-05-06 2019-05-06 Orders Doctor HUBBARD 1.2.840.114 [id number] Univers 00:00:00 00:00:00 Only Unassigned, HALLE 350.1.13.10 ity of [employer] [place] [facility] 4.2.7.2.686 Jayson as [phone] [address] 2019-05-06 2019-05-06 Orders Doctor STEVIE 1.2.840.114 [id number] 00:00:00 00:00:00 Only Unassigned, HALLE 350.1.13.10 [facility] 4.2.7.2.[phone] [facility] 2019-05-04 2019-05-04 Ancillary Michelle, Lolly Langford [facility] 1.2.840. 114 [id number] [facility] 14:51:49 16:20:27 Visit aTcho Cain 350.1.13.10 ity of [place] [phone] [address] 2019-05-04 2019-05-04 Ancillary DUANE Michelle 1.2.117.443 [id number] 14:51:49 16:20:27 Visit Lolly Wilhelm 350.1.13.10 [place] 4.2.7.2.686 Professio [phone] [address] 2019-04-23 2019-04-23 Ancillary Michelle, Lolly Langford [facility] 1.2.840. 114 [id number] [facility] 14:16:23 16:08:45 Visit Tacho Cain 350.1.13.10 ity of [place].2.[place] [phone] Nv dic[address] 2019-04-23 2019-04-23 Ancillary Miguel Angel SDELVA 1.2.622.556 [id number] 14:16:23 16:08:45 Visit Lolly Wilhelm 350.1.13.10 [place] 4.2.7.2.686 Professio [phone] [address] 2019-04-22 2019-04-22 Ancillary Guerline Navarrete [facility] 1.2.840 .114 [id number] [facility] 14:24:40 15:14:05 Visit Cain, Tacho L [place] 350.1.13.10 ity of [place].2.[place] [phone] Me dical nal 179 [facility] 2019-04-22 2019-04-22 Ancillary Landon [facility] 1.2.693.823 [id number] 14:24:40 15:14:05 Visit Guerline Howell Melonie 350.1.13.10 [place] 4.2.7.2.686 Professio [phone] [facility] 179 [facility] [address] 2019-04-16 2019-04-16 Outpatient R [facility] [id number] [facility] 15:20:00 15:20:00 TACHO ity [facility] 2019-04-14 2019-04-14 Ancillary Lolly Michelle [facility] 1.2.840. 114 [id number] [facility] 16:16:46 16:56:46 Visit Tacho Cain 350.1.13.10 ity of [place].2.[place] [phone] Nv dical nal 179 [facility] 2019-04-14 2019-04-14 Ancillary Miguel Angel [facility] 1.2.944.662 [id number] 16:16:46 16:56:46 Visit Lolly Langford Melonie 350.1.13.10 [place] 4.2.7.2.686 Professio [phone] [facility] 179 [facility] [address] 2019-04-09 2019-04-09 Ancillary Guerline Navarrete [facility] 1.2.840 .114 [id number] [facility] 16:19:26 17:01:53 Visit Tacho Cain Melonie 350.1.13.10 ity of [place] [phone] Me dical nal 179 [facility] 2019-04-09 2019-04-09 Ancillary [facility] 1.2.217.389 [id number] 16:19:26 17:01:53 Visit Guerline Howell Melonie 350.1.13.10 [place] 4.2.7.2.686 Professio [phone] [facility] 179 [facility] [address] 2019-04-09 2019-04-09 Outpatient R [facility] [id number] [facility] 16:20:00 16:20:00 TACHO ity of [facility] 2019-03-31 2019-03-31 Ancillary Lolly Michelle [facility] 1.2.840. 114 [id number] [facility] 08:04:37 15:11:26 Visit Tacho Cain [place] 350.1.13.10 ity of [place].2.[place] [phone] Nv dical [address] 2019-03-31 2019-03-31 Ancillary Miguel Angel [facility] 1.2.504.215 [id number] 08:04:37 15:11:26 Visit Lolly Langford Melonie 350.1.13.10 [place] 4.2.7.2.686 Professio [phone] [address] 2019-03-31 2019-03-31 Orders Doctor HUBBARD 1.2.840.114 [id number] 00:00:00 00:00:00 Only Unassigned, HALLE 350.1.13.10 [facility] 4.2.7.2.686 [phone] 009 2019-03-31 2019-03-31 Orders Doctor STEVIE 1.2.840.114 [id number] Univers 00:00:00 00:00:00 Only Unassigned, HALLE 350.1.13.10 ity of [place] [facility] 4.2.7.2.686 Jayson as [phone] [address] 2018-08-28 2018-08-28 Orders Doctor STEVIE Olivarez.2.840.114 [id number] 00:00:00 00:00:00 Only Unassigned, HALLE 350.1.13.10 [facility] [id number] 009 2018-08-28 2018-08-28 Orders Doctor STEVIE Olivarez.2.840.114 [id number] Univers 00:00:00 00:00:00 Only Unassigned, HALLE 350.1.13.10 ity of [facility] 4.2.7.2.686 Jayson as [phone] [address] Results Test Description Test Time Test Comments Results Result Comments Source POCT MOLECULAR FLU 2022-08-19 19:48:00 Test Item Value Reference Range Interpretation Comme nts POCT Molecular FluA (test code = 05435-8) Negative Negative POCT Molecular FluB (test code = 93532-1) Negative Negative Lab Interpretation (test code = 03560-7) Normal [facility] MOLECULAR [id number] 19:48:00 Test Item Value Reference Range Interpretation Comments POCT Molecular FluA (test code = Negative Negative 32356-2) POCT Molecular FluB (test code = Negative Negative 38672-8) Lab Interpretation (test code = Normal 79467-8) [facility] MOLECULAR [id number] 19:48:00 Test Item Value Reference Range Interpretation Comments POCT Molecular FluA (test code = Negative Negative 75855-4) POCT Molecular FluB (test code = Negative Negative 82734-2) Lab Interpretation (test code = Normal 01071-4) [facility] MOLECULAR [id number] 19:48:00 Test Item Value Reference Range Interpretation Comments POCT Molecular FluA (test code = Negative Negative 80872-4) POCT Molecular FluB (test code = Negative Negative 19218-6) Lab Interpretation (test code = Normal 15722-8) [facility] MOLECULAR [id number] 19:48:00 Test Item Value Reference Range Interpretation Comments POCT Molecular FluA (test code = Negative Negative 57012-1) POCT Molecular FluB (test code = Negative Negative 98898-7) Lab Interpretation (test code = Normal 75423-5) [facility] SARS-COV-2 ANTIGEN (BINAX NOW)2022-08-19 19:33:00 Test Item Value Reference Range Interpretation Comments POCT SARS-COV-2 ANTIGEN (test Not Detected Not Detected code = 50511-9) On board controls acceptable Yes with C Line (test code = 3574) Lab Interpretation (test code = Normal 35554-4) [facility] SARS-COV-2 ANTIGEN (BINAX NOW)2022-08-19 19:33:00 Test Item Value Reference Range Interpretation Comments POCT SARS-COV-2 ANTIGEN (test Not Detected Not Detected code = 86044-2) On board controls acceptable Yes with C Line (test code = 3574) Lab Interpretation (test code = Normal 60883-5) [facility] SARS-COV-2 ANTIGEN (BINAX NOW)2022-08-19 19:33:00 Test Item Value Reference Range Interpretation Comments POCT SARS-COV-2 ANTIGEN (test Not Detected Not Detected code = 40858-8) On board controls acceptable Yes with C Line (test code = 3574) Lab Interpretation (test code = Normal 27379-1) [facility] SARS-COV-2 ANTIGEN (BINAX NOW)2022-08-19 19:33:00 Test Item Value Reference Range Interpretation Comments POCT SARS-COV-2 ANTIGEN (test Not Detected Not Detected code = 87916-4) On board controls acceptable Yes with C Line (test code = 3574) Lab Interpretation (test code = Normal 24190-5) [facility] SARS-COV-2 ANTIGEN (BINAX NOW)2022-08-19 19:33:00 Test Item Value Reference Range Interpretation Comments POCT SARS-COV-2 ANTIGEN (test Not Detected Not Detected code = 47618-6) On board controls acceptable Yes with C Line (test code = 3574) Lab Interpretation (test code = Normal 45740-8) [facility] MOLECULAR [id number] 19:24:19 Test Item Value Reference Range Interpretation Comments POCT Molecular Strep (test code = Negative Negative 81836-6) Lab Interpretation (test code = Normal 25150-9) [facility] MOLECULAR [id number] 19:24:19 Test Item Value Reference Range Interpretation Comments POCT Molecular Strep (test code = Negative Negative 48625-0) Lab Interpretation (test code = Normal 68297-3) [facility] MOLECULAR [id number] 19:24:19 Test Item Value Reference Range Interpretation Comments POCT Molecular Strep (test code = Negative Negative 56486-5) Lab Interpretation (test code = Normal 60179-0) [facility] MOLECULAR [id number] 19:24:19 Test Item Value Reference Range Interpretation Comments POCT Molecular Strep (test code = Negative Negative 99375-3) Lab Interpretation (test code = Normal 86616-0) [facility] MOLECULAR [id number] 19:24:19 Test Item Value Reference Range Interpretation Comments POCT Molecular Strep (test code = Negative Negative 97959-5) Lab Interpretation (test code = Normal 35699-5) [facility] MOLECULAR [id number] 17:32:56 Test Item Value Reference Range Interpretation Comments POCT Molecular Strep (test code = Negative Negative 05721-8) Lab Interpretation (test code = Normal 29949-7) [facility] MOLECULAR [id number] 15:09:53 Test Item Value Reference Range Interpretation Comments POCT Molecular FluA (test code = Negative Negative 27768-7) POCT Molecular FluB (test code = Negative Negative 89948-0) Lab Interpretation (test code = Normal 73920-3) [facility] MOLECULAR [id number] 15:04:19 Test Item Value Reference Range Interpretation Comments POCT Molecular Strep (test code = Negative Negative 74691-3) Lab Interpretation (test code = Normal 78867-1) [facility] SARS-COV-2 ANTIGEN (BINAX NOW)2022-04-26 15:04:00 Test Item Value Reference Range Interpretation Comments POCT SARS-COV-2 ANTIGEN (test code = Positive Not Detected A 32429-0) On board controls acceptable with C Yes Line (test code = 3574) Lab Interpretation (test code = Abnormal 75190-7) [facility] MOLECULAR [id number] 19:30:25 Test Item Value Reference Range Interpretation Comments POCT Molecular Strep (test code = Positive Negative A 18805-9) Lab Interpretation (test code = Abnormal 11095-0) [facility] MOLECULAR [id number] 16:10:06 Test Item Value Reference Range Interpretation Comments POCT Molecular Strep (test code = Negative Negative 00207-1) Lab Interpretation (test code = Normal 14557-2) [facility] MOLECULAR [id number] 14:45:48 Test Item Value Reference Range Interpretation Comments POCT Molecular FluA (test code = Positive Negative A 03984-5) Lab Interpretation (test code = Abnormal 57867-1) [facility] MOLECULAR [id number] 17:48:29 Test Item Value Reference Range Interpretation Comments POCT Molecular Strep (test code = Negative Negative 36163-8) Lab Interpretation (test code = Normal 41257-0) [facility] [id number] 15:04:52 Test Item Value Reference Range Interpretation Comments POCT Molecular Strep (test code = Positive Negative A 13980-7) Lab Interpretation (test code = Abnormal 95934-9) [facility]
--- NOTE | 2022-08-25 14:52 | EDPHYS ---
Physician Documentation [facility] Name: Cliff Kang Age: 22 yrs Sex: Male : 2000 Arrival Date: 08/25/2022 Time: 13:46 Bed 12 Private MD: TRUE Physician Dejuan Sandoval HPI: 08/25 14:46 This 22 yrs old Male presents to ER via Ambulatory with complaints of Penile maria de jesus Problem. 14:46 The patient presents with tenderness, that is mild. Onset: The symptoms/episode maria de jesus began/occurred 3 day(s) ago. Modifying factors: The symptoms are alleviated by nothing, the symptoms are aggravated by nothing. 14:47 The patient presents with cellulitis of the pelvis. Description: draining, maria de jesus erythematous. Possible cause(s): unknown. Associated signs and symptoms: The patient has no apparent associated signs or symptoms. Modifying factors: the symptoms are alleviated by nothing, the symptoms are aggravated by nothing. Associated signs and symptoms: Pertinent positives: sore throat. Severity of symptoms: At their worst the symptoms were mild, in the emergency department the symptoms are unchanged. The patient has not experienced similar symptoms in the past. Historical: - Allergies: 13:54 Tessalon Perles (Anxiety); jl7 - PMHx: 13:54 ADD/ADHD; Asthma; Depression; mood disorder; jl7 - PSHx: 13:54 Left ACL Repair; jl7 - Immunization history:: Adult Immunizations up to date. - Social history:: Smoking status: Patient denies any tobacco usage or history of. ROS: 14:48 Constitutional: Negative for fever, chills, and weight loss, Eyes: Negative for injury, maria de jesus pain, redness, and discharge, Neck: Negative for injury, pain, and swelling, Cardiovascular: Negative for chest pain, palpitations, and edema, Respiratory: Negative for shortness of breath, cough, wheezing, and pleuritic chest pain, Abdomen/GI: Negative for abdominal pain, nausea, vomiting, diarrhea, and constipation, Back: Negative for injury and pain, MS/Extremity: Negative for injury and deformity, Neuro: Negative for headache, weakness, numbness, tingling, and seizure, Psych: Negative for depression, anxiety, suicide ideation, homicidal ideation, and hallucinations, Allergy/Immunology: Negative for hives, rash, and allergies, Endocrine: Negative for neck swelling, polydipsia, polyuria, polyphagia, and marked weight changes, Hematologic/Lymphatic: Negative for swollen nodes, abnormal bleeding, and unusual bruising. 14:48 : Positive for of the pelvis. 14:48 Skin: Positive for erythema, swelling, of the pelvis. Exam: 14:48 Constitutional: This is a well developed, well nourished patient who is awake, alert, maria de jesus and in no acute distress. Head/Face: Normocephalic, atraumatic. Eyes: Pupils equal round and reactive to light, extra-ocular motions intact. Lids and lashes normal. Conjunctiva and sclera are non-icteric and not injected. Cornea within normal limits. Periorbital areas with no swelling, redness, or edema. ENT: Nares patent. No nasal discharge, no septal abnormalities noted. Tympanic membranes are normal and external auditory canals are clear. Oropharynx with no redness, swelling, or masses, exudates, or evidence of obstruction, uvula midline. Mucous membranes moist. Neck: Trachea midline, no thyromegaly or masses palpated, and no cervical lymphadenopathy. Supple, full range of motion without nuchal rigidity, or vertebral point tenderness. No Meningismus. Chest/axilla: Normal chest wall appearance and motion. Nontender with no deformity. No lesions are appreciated. Cardiovascular: Regular rate and rhythm with a normal S1 and S2. No gallops, murmurs, or rubs. Normal PMI, no JVD. No pulse deficits. Respiratory: Lungs have equal breath sounds bilaterally, clear to auscultation and percussion. No rales, rhonchi or wheezes noted. No increased work of breathing, no retractions or nasal flaring. Abdomen/GI: Soft, non-tender, with normal bowel sounds. No distension or tympany. No guarding or rebound. No evidence of tenderness throughout. Back: No spinal tenderness. No costovertebral tenderness. Full range of motion. Male : Normal genitalia with no discharge or lesions. Neuro: Awake and alert, GCS 15, oriented to person, place, time, and situation. Cranial nerves II-XII grossly intact. Motor strength 5/5 in all extremities. Sensory grossly intact. Cerebellar exam normal. Normal gait. Psych: Awake, alert, with orientation to person, place and time. Behavior, mood, and affect are within normal limits. 14:48 Skin: cellulitis, that is mild, staph. Vital Signs: 13:53 BP 150 / 98; Pulse 100; Resp 18; Temp 99; Pulse Ox 100% on R/A; Weight 79.38 kg; Height jl7 5 ft. 5 in. ; Pain 1/10; 15:23 BP 140 / 89; Pulse 99; Resp 15; Pulse Ox 100% ; jl7 13:53 Body Mass Index 29.12 (79.38 kg, 165.1 cm) jl7 13:53 Pain Scale: Adult jl7 MDM: 13:57 Patient medically screened. [facility] 14:49 Differential diagnosis: abscess, cellulitis. Data reviewed: vital signs, nurses notes. maria de jesus Consideration of Admission/Observation Escalation of care including admission/observation considered. I considered the following discharge prescriptions or medication management in the emergency department Medications were administered in the Emergency Department. See MAR. Test considered but Not performed: Labs: no labs. Care significantly affected by the following chronic conditions: mood do, asthma, add/adah. Administered Medications: 15:17 Drug: Rocephin (cefTRIAXone) IM 1 grams Route: IM; Site: right ventrogluteal; jl7 15:22 Follow up: Response: No adverse reaction jl7 15:17 Drug: Doxycycline PO 200 mg Route: PO; jl7 15:22 Follow up: Response: Medication administered at discharge. jl7 15:17 Drug: Mupirocin Topical Ointment 2 % 1 application Route: Topical; Site: affected area; jl7 15:22 Follow up: Response: No adverse reaction jl7 Disposition Summary: 08/25/22 14:52 Discharge Ordered Location: Home maria de jesus Problem: new maria de jesus Symptoms: have improved maria de jesus Condition: Stable maria de jesus Diagnosis - Impetigo maria de jesus - Impetigo, unspecified maria de jesus - Cellulitis of groin maria de jesus Followup: maria de jesus - With: Private Physician - When: 2 - 3 days - Reason: Recheck today's complaints, Continuance of care, Re-evaluation by your physician Discharge Instructions: - Discharge Summary Sheet maria de jesus - Cellulitis, Adult maria de jesus - Cellulitis, Adult, [id number] maria de jesus - Lymphangitis, Adult maria de jesus - Impetigo, Adult maria de jesus Forms: - Medication Reconciliation Form maria de jesus - Thank You Letter maria de jesus - Antibiotic Education maria de jesus - Prescription Opioid Use maria de jesus - Patient Portal Instructions maria de jesus Prescriptions: - Centany 2 % Topical ointment - apply 1 application by TOPICAL route every 8 hours; 22 gram tube; Refills: 0, [facility] Product Selection Permitted - Doxycycline Hyclate 100 mg Oral Tablet - take 1 tablet by ORAL route every 12 hours; 20 tablet; Refills: 0, Product [facility] Selection Permitted Signatures: Dejuan Sandoval, Gonsalo Yu MD, cha, RN RN jl7
--- NOTE | 2022-08-25 14:52 | ER ---
Nurse's Notes [facility] Name: Cliff Kang Age: 22 yrs Sex: Male : 2000 Arrival Date: 08/25/2022 Time: 13:46 Bed 12 Private MD: Diagnosis: Impetigo;Impetigo, unspecified;Cellulitis of groin Presentation: 08/25 13:53 Chief complaint: Sores on penis x 3 days. On amoxicillin day 2 for tonsillitis. jl7 Coronavirus screen: At this time, the client does not indicate any symptoms associated with coronavirus-19. Ebola Screen: No symptoms or risks identified at this time. Initial Sepsis Screen: Does the patient meet any 2 criteria? No. Patient's initial sepsis screen is negative. Does the patient have a suspected source of infection? No. Patient's initial sepsis screen is negative. Risk Assessment: Do you want to hurt yourself or someone else? Patient reports no desire to harm self or others. Onset of symptoms was August 23, 2022. 13:53 Method Of Arrival: Ambulatory [facility] 13:53 Acuity: MIRNA 4 jl7 Historical: - Allergies: 13:54 Tessalon Perles (Anxiety); jl7 - PMHx: 13:54 ADD/ADHD; Asthma; Depression; mood disorder; jl7 - PSHx: 13:54 Left ACL Repair; jl7 - Immunization history:: Adult Immunizations up to date. - Social history:: Smoking status: Patient denies any tobacco usage or history of. Screenin:00 [facility] ED Fall Risk Assessment (Adult) History of falling in the last 3 months, jl7 including since admission No falls in past 3 months (0 pts) Confusion or Disorientation No (0 pts) Intoxicated or Sedated No (0 pts) Impaired Gait No (0 pts) Mobility Assist Device Used No (0 pt) Altered Elimination No (0 pt) Score/Fall Risk Level 0 - 2 = Low Risk Oriented to surroundings, Maintained a safe environment. Abuse screen: Denies threats or abuse. Denies injuries from another. Nutritional screening: No deficits noted. Tuberculosis screening: No symptoms or risk factors identified. Vital Signs: 13:53 BP 150 / 98; Pulse 100; Resp 18; Temp 99; Pulse Ox 100% on R/A; Weight 79.38 kg; Height jl7 5 ft. 5 in. ; Pain 1/10; 15:23 BP 140 / 89; Pulse 99; Resp 15; Pulse Ox 100% ; jl7 13:53 Body Mass Index 29.12 (79.38 kg, 165.1 cm) jl7 13:53 Pain Scale: Adult jl7 ED Course: 13:47 Patient arrived in ED. ts1 13:54 Triage completed. jl7 13:55 Arm band placed on. jl7 13:57 Dejuan Sandoval MD is Attending Physician. maria de jesus 15:03 Gonsalo Liriano, RN is Primary Nurse. jl7 15:16 Patient has correct armband on for positive identification. Bed in low position. Call jl7 light in reach. Side rails up X 1. Provided Education on: discharge instructions. 15:16 No provider procedures requiring assistance completed. Patient did not have IV access jl7 during this emergency room visit. Administered Medications: 15:17 Drug: Rocephin (cefTRIAXone) IM 1 grams Route: IM; Site: right ventrogluteal; jl7 15:22 Follow up: Response: No adverse reaction jl7 15:17 Drug: Doxycycline PO 200 mg Route: PO; jl7 15:22 Follow up: Response: Medication administered at discharge. jl7 15:17 Drug: Mupirocin Topical Ointment 2 % 1 application Route: Topical; Site: affected area; jl7 15:22 Follow up: Response: No adverse reaction jl7 Medication: 15:18 VIS not applicable for this client. jl7 Outcome: 14:52 Discharge ordered by . [facility] 15:23 Discharged to home ambulatory. 7 15:23 Condition: stable 15:23 Discharge instructions given to patient, Instructed on discharge instructions, follow up and referral plans. medication usage, Demonstrated understanding of instructions, follow-up care, medications, Prescriptions given X 2. 15:24 Patient left the ED. jl7 Signatures: Dejuan Sandoval MD MD cha Leal, Jahala, RN RN jl7 Radha Woody PAS PAS ts1 Corrections: (The following items were deleted from the chart) 13:55 13:53 Chief complaint: Sores on penis x 3 days. jl7 jl7
[2022-08-25] MEDS ORDERED: LIDOCAINE 1% MPF 2 ML AMPULE ONE (15:17)
[2022-08-25] MEDS ORDERED: CEFTRIAXONE 1000 MG/VIAL ONE (15:17)
[2022-08-25] MEDS ORDERED: MUPIROCIN 2% OINT 22GM TUBE TOP ONE (15:18)
[2022-08-25] MEDS ORDERED: DOXYCYCLINE 100 MG CAP PO ONE (15:28)
[2022-08-25 15:38] VITALS: TEMP 99; O2SAT 100
[2022-08-25 15:39] VITALS: BP 140/89
== END 2022-08-25 15:24 | disposition home or self-care (01) ==
LOC: ER 13:46
DX: L03.314 Cellulitis of groin (principal); L01.00 Impetigo, unspecified; Z88.8 Allergy status to other drugs, medicaments and biological substances
CPT/HCPCS: 96372; 99284; J0696

== ENCOUNTER 2022-08-28 14:26 | Emergency (ER) | payer OTHER ==
--- OUTSIDE RECORDS SUMMARY | 2022-08-28 15:02 | XMS REPORT | Continuity of Care Document ---
:2000 Author Organization [facility] t Address [address] [facility]. [address] [place] [address] Care Team Providers Name Role Phone James [...] Tracy Babin MD Attending Clinician Doctor Unassigned, [place] Attending Clinician Unavailable MARIMAR JEWELL Attending Clinician [...] Unavailable AREN SHABAZZ Attending Clinician Unavailable Mele CONSTRUCTION ADMINISTRATOR, Aren Attending Clinician Nurse, [facility] Attending Clinician Unavailable UNKNOWN, ATTENDING Attending Clinician Unavailable TACHO CAIN Attending Clinician Unavailable Miguel Angel PT, Lolly Langford Attending Clinician Unavailable Tacho Cain MD Attending Clinician Landon ACTION FINISHER, Guerline Howell Attending Clinician Unavailable TRACY BABIN Admitting Clinician Unavailable Payers Payer Name Policy Type Policy Number Effective Date Expiration Date Sulma [employer]AR [id number] 2021 00:00:00 Problems Condition Condition Condition Status [...] Added automatic ally from request for surgery [id number] Allergies, Adverse Reactions, Alerts Allergy Allergy Status [...] [facility] Social History Social Habit Start Date Stop Date Quantity Comments Source Gender identity Universit y [facility] Sexual orientation Univer sity [facility] History of tobacco Cigarette Smoker [facility] Alcohol intake 2022-08-19 2022-08-19 Current drinker Unive rsity of 00:00:00 00:00:00 of alcohol [facility] (finding) Branch Exposure to 2022-07-01 2022-07-11 Not sure University of SARS-CoV-2 (event) 00:00:00 10:50:00 [facility] Tobacco use and 2022-04-12 2022-04-12 User of smokeless Un iversity of exposure 00:00:00 00:00:00 tobacco [facility] Cigarettes smoked 2022-04-12 2022-04-12 Univers ity of current (pack per 00:00:00 00:00:00 [facility] ) - Reported Branch Cigarette 2022-04-12 2022-04-12 University of pack-years 00:00:00 00:00:00 [facility] Tobacco Comment 2022-04-12 2022-04-12 vape Universit y of 00:00:00 00:00:00 [facility] Alcohol Comment 2022-04-12 2022-04-12 ocassional Universit y of 00:00:00 00:00:00 [facility] History of Social 2021-09-07 2021-09-07 Univers ity of function 00:00:00 00:00:00 [facility] Sex Assigned At [birth year] Universit y of 00:00:00 00:00:00 [facility] Smoking Status Start Date Stop Date Source Smokes tobacco daily 2022-04-12 00:00:00 Univers ity of [facility] Never smoked tobacco [facility] Medications Ordered Filled Start Stop Current Ordering Indication Dosage Frequency Signature Comments Components Source Medication Medication Date Date Medication? Clinician (SIG) Name Name dexAMETHaso 2022- No [id number] 12mg Univers ne 08-19 ity of (DECADRON) 20:30: 19:51 [place] tablet 12 00 :00 Medical Branch dexAMETHaso 2022- No [id number] 12mg 12 mg, Univers ne 08-19 Oral, ity of (DECADRON) 20:30: 19:51 ONCE, 1 [place] tablet 12 00 :00 dose, On Medica l mg 08/19/22 Branch at 1530, Routine dexAMETHaso 2022- No [id number] 12mg Univers ne 08-19 ity of (DECADRON) 20:30: 19:51 [place] tablet 12 00 :00 Medical mg Branch dexAMETHaso 2022- No [id number] 12mg 12 mg, [facility] 08-19 Oral, ity of (DECADRON) 20:30: 19:51 ONCE, 1 [place] tablet 12 00 :00 dose, On Medica l mg [place] 08/19/22 Branch at 1530, Routine dexAMETHaso 2022- No [id number] 12mg [facility] 08-19 ity of (DECADRON) 20:30: 19:51 [place] tablet 12 00 :00 Medical mg Branch dexAMETHaso 2022- No [id number] 12mg 12 mg, [facility] 08-19 Oral, ity of (DECADRON) 20:30: 19:51 ONCE, 1 [place] tablet 12 00 :00 dose, On Medica l mg [place] 08/19/22 Branch at 1530, Routine dexAMETHaso 2022- No [id number] 12mg [facility] 08-19 ity of (DECADRON) 20:30: 19:51 [place] tablet 12 00 :00 Medical mg Branch dexAMETHaso 2022- No [id number] 12mg 12 mg, [facility] 08-19 Oral, ity of (DECADRON) 20:30: 19:51 ONCE, 1 [place] tablet 12 00 :00 dose, On Medica l mg [place] 08/19/22 Branch at 1530, Routine dexAMETHaso 2022- No [id number] 12mg [facility] 08-19 ity of (DECADRON) 20:30: 19:51 [place] tablet 12 00 :00 Medical mg Branch dexAMETHaso 2022- No [id number] 12mg 12 mg, [facility] 08-19 Oral, ity of (DECADRON) 20:30: 19:51 ONCE, 1 [place] tablet 12 00 :00 dose, On Medica l mg [place] 08/19/22 [place] at 1530, Routine codeine-gua 2022- Yes [id number] [...] Indication s: acute pain dexamethaso 2022- No [id number] 10mg U nivers ne 07-20 ity of (DECADRON) 17:15: 16:20 [place] injection 00 :00 Medical 10 mg Branch dexamethaso 2022- No [id number] 10mg 10 mg, Univers ne 07-20 Intramuscu ity of (DECADRON) 17:15: 16:20 lar, ONCE, [place] injection 00 :00 1 dose, On Medi carlos 10 mg 07/20/22 Branch at 1215, Routine promethazin 2022- Yes [id number] 5mL Take 5 mL Univers e-dextromet 07-20 06-20 by mouth 4 i ty of horphan 00:00: 04:59 (four) [place] 6.25-15 00 :00 times Medical mg/5 mL daily for Branch syrup 10 days. amoxicillin 2022- Yes [id number] 1{tbl} Take 1 Univers -clavulanat 6- 06-20 tablet by it y of e 00:00: 04:59 mouth in [place] (AUGMENTIN) 00 :00 the Medical 875-125 mg morning Branch per tablet and 1 tablet in the evening. Do all this for 10 days. promethazin 2022- Yes [id number] 5mL Take 5 mL Univers e-dextromet 07-20-20 by mouth 4 i ty of horphan 00:00: 04:59 (four) [place] 6.25-15 00 :00 times Medical mg/5 mL daily for Branch syrup 10 days. amoxicillin 2022- Yes [id number] 1{tbl} Take 1 Univers -clavulanat 6- 06-20 tablet by it y of e 00:00: 04:59 mouth in [place] (AUGMENTIN) 00 :00 the Medical 875-125 mg morning Branch per tablet and 1 tablet in the evening. Do all this for 10 days. bromphenira Yes [id number] 10mL Take 10 mL Univers mine-pseudo 5-31 by mouth 4 it y of ephedrine-D 00:00: (four[place] (BROMFED 00 times Medical DM) 2-30-10 daily as Bran ch mg/5 mL needed for syrup Cold symptoms. albuterol Yes [id number] 2{puff} Inhale 2 Univers 90 5-31 Puffs ity of mcg/actuati 00:00: every 6 [place] on inhaler 00 (six) Medical hours as Branch needed for Shortness of Breath or Wheezing. ibuprofen Yes [id number] 600mg Take 1 U nivers 600 mg 5-31 tablet by ity of tablet 00:00: mouth [place] 00 every 6 Medical (six) Branch hours as needed for Pain (scale 1-3) or Pain (scale 4-6). bromphenira 2022-0 Yes [id number] 10mL Take 10 mL Univers mine-pseudo 5-31 by mouth 4 it y of ephedrine-D 00:00: (four) [place] (BROMFED 00 times Medical DM) 2-30-10 daily as Bran ch mg/5 mL needed for syrup Cold symptoms. albuterol 2022-0 Yes [id number] 2{puff} Inhale 2 Univers 90 5-31 Puffs ity of mcg/actuati 00:00: every 6 [place] on inhaler 00 (six) Medical hours as Branch needed for Shortness of Breath or Wheezing. ibuprofen 2022-0 Yes [id number] 600mg Take 1 U nivers 600 mg 5-31 tablet by ity of tablet 00:00: mouth [place] 00 every 6 Medical (six) Branch hours as needed for Pain (scale 1-3) or Pain (scale 4-6). bromphenira 2022-0 Yes [id number] 10mL Take 10 mL Univers mine-pseudo 5-31 by mouth 4 it y of ephedrine-D 00:00: (four) [place] (BROMFED 00 times Medical DM) 2-30-10 daily as Bran ch mg/5 mL needed for syrup Cold symptoms. albuterol 2022-0 Yes [id number] 2{puff} Inhale 2 Univers 90 5-31 Puffs ity of mcg/actuati 00:00: every 6 [place] on inhaler 00 (six) Medical hours as Branch needed for Shortness of Breath or Wheezing. ibuprofen 2022-0 Yes [id number] 600mg Take 1 U nivers 600 mg 5-31 tablet by ity of tablet 00:00: mouth [place] 00 every 6 Medical (six) Branch hours as needed for Pain (scale 1-3) or Pain (scale 4-6). bromphenira 2022-0 Yes [id number] 10mL Take 10 mL Univers mine-pseudo 5-31 by mouth 4 it y of ephedrine-D 00:00: (four[place] (BROMFED 00 times Medical DM) 2-30-10 daily as Bran ch mg/5 mL needed for syrup Cold symptoms. albuterol 2022-0 Yes [id number] 2{puff} Inhale 2 Univers 90 5-31 Puffs ity of mcg/actuati 00:00: every 6 [place] on inhaler 00 (six) Medical hours as Branch needed for Shortness of Breath or Wheezing. ibuprofen 2022-0 Yes [id number] 600mg Take 1 U nivers 600 mg 5-31 tablet by ity of tablet 00:00: mouth [place] 00 every 6 Medical (six) Branch hours as needed for Pain (scale 1-3) or Pain (scale 4-6). bromphenira 2022-0 Yes [id number] 10mL Take 10 mL Univers mine-pseudo 5-31 by mouth 4 it y of ephedrine-D 00:00: (four) [place] (BROMFED 00 times Medical DM) 2-30-10 daily as Bran ch mg/5 mL needed for syrup Cold symptoms. albuterol 2022-0 Yes [id number] 2{puff} Inhale 2 Univers 90 5-31 Puffs ity of mcg/actuati 00:00: every 6 [place] on inhaler 00 (six) Medical hours as Branch needed for Shortness of Breath or Wheezing. ibuprofen 2022-0 Yes [id number] 600mg Take 1 U nivers 600 mg 5-31 tablet by ity of tablet 00:00: mouth [place] 00 every 6 Medical (six) Branch hours as needed for Pain (scale 1-3) or Pain (scale 4-6). bromphenira 2022-0 Yes [id number] 10mL Take 10 mL Univers mine-pseudo 5-31 by mouth 4 it y of ephedrine-D 00:00: (four) [place] (BROMFED 00 times Medical DM) 2-30-10 daily as Bran ch mg/5 mL needed for syrup Cold symptoms. albuterol 2022-0 Yes [id number] 2{puff} Inhale 2 Univers 90 5-31 Puffs ity of mcg/actuati 00:00: every 6 [place] on inhaler 00 (six) Medical hours as Branch needed for Shortness of Breath or Wheezing. ibuprofen 2022-0 Yes [id number] 600mg Take 1 U nivers 600 mg 5-31 tablet by ity of tablet 00:00: mouth [place] 00 every 6 Medical (six) Branch hours as needed for Pain (scale 1-3) or Pain (scale 4-6). bromphenira 202-0 Yes [id number] 10mL Take 10 mL Univers mine-pseudo 5-31 by mouth 4 it y of ephedrine-D 00:00: (four) [place] (BROMFED 00 times Medical DM) 2-30-10 daily as Bran ch mg/5 mL needed for syrup Cold symptoms. albuterol Yes [id number] 2{puff} Inhale 2 Univers 90 5-31 Puffs ity of mcg/actuati 00:00: every 6 [place] on inhaler 00 (six) Medical hours as Branch needed for Shortness of Breath or Wheezing. ibuprofen 0 Yes [id number] 600mg Take 1 U nivers 600 mg 5-31 tablet by ity of tablet 00:00: mouth [place] 00 every 6 Medical (six) Branch hours as needed for Pain (scale 1-3) or Pain (scale 4-6). bromphenira 0 Yes [id number] 10mL Take 10 mL Univers mine-pseudo 5-31 by mouth 4 it y of ephedrine-D 00:00: (four) [place] (BROMFED 00 times Medical DM) 2-30-10 daily as Bran ch mg/5 mL needed for syrup Cold symptoms. albuterol Yes [id number] 2{puff} Inhale 2 Univers 90 5-31 Puffs ity of mcg/actuati 00:00: every 6 [place] on inhaler 00 (six) Medical hours as Branch needed for Shortness of Breath or Wheezing. ibuprofen 0 Yes [id number] 600mg Take 1 U nivers 600 mg 5-31 tablet by ity of tablet 00:00: mouth [place] 00 every 6 Medical (six) Branch hours as needed for Pain (scale 1-3) or Pain (scale 4-6). bromphenira 0 Yes [id number] 10mL Take 10 mL Univers mine-pseudo 5-31 by mouth 4 it y of ephedrine-D 00:00: (four) [place] (BROMFED 00 times Medical DM) 2-30-10 daily as Bran ch mg/5 mL needed for syrup Cold symptoms. albuterol 0 Yes [id number] 2{puff} Inhale 2 Univers 90 5-31 Puffs ity of mcg/actuati 00:00: every 6 [place] on inhaler 00 (six) Medical hours as Branch needed for Shortness of Breath or Wheezing. ibuprofen Yes [id number] 600mg Take 1 U nivers 600 mg 5-31 tablet by ity of tablet 00:00: mouth [place] 00 every 6 Medical (six) Branch hours as needed for Pain (scale 1-3) or Pain (scale 4-6). bromphenira Yes [id number] 10mL Take 10 mL Univers mine-pseudo 5-31 by mouth 4 it y of ephedrine-D 00:00: (four) [place] (BROMFED 00 times Medical DM) 2-30-10 daily as Bran ch mg/5 mL needed for syrup Cold symptoms. albuterol Yes [id number] 2{puff} Inhale 2 Univers 90 5-31 Puffs ity of mcg/actuati 00:00: every 6 [place] on inhaler 00 (six) Medical hours as Branch needed for Shortness of Breath or Wheezing. ibuprofen Yes [id number] 600mg Take 1 U nivers 600 mg 5-31 tablet by ity of tablet 00:00: mouth [place] 00 every 6 Medical (six) Branch hours as needed for Pain (scale 1-3) or Pain (scale 4-6). clindamycin 2022- Yes [id number] 300mg Take 1 Univers 300 mg 4-21 05-13 capsule by ity of capsule 00:00: 04:59 mouth 4 [place] 00 :00 (four) Medical times Branch daily for 21 days. clindamycin 2022- Yes [id number] 300mg Take 1 Univers 300 mg 4-21 05-13 capsule by ity of capsule 00:00: 04:59 mouth 4 [place] 00 :00 (four) Medical times Branch daily for 21 days. clindamycin 2022- Yes [id number] 300mg Take 1 Univers 300 mg 4-21 05-13 capsule by ity of capsule 00:00: 04:59 mouth 4 [place] 00 :00 (four) Medical times Branch daily for 21 days. clindamycin 2022- Yes [id number] 300mg Take 1 Univers 300 mg 4-21 05-13 capsule by ity of capsule 00:00: 04:59 mouth 4 [place] 00 :00 (four) Medical times Branch daily for 21 days. clindamycin 2022- Yes [id number] 300mg Take 1 Univers 300 mg 4-21 05-13 capsule by ity of capsule 00:00: 04:59 mouth 4 [place] 00 :00 (four) Medical times Branch daily for 21 days. bromphenira 2023-0 3- No [id number] 5mL Take 5 mL Univers mine-pseudo 3-30 04-10 by mouth 4 i ty of ephedrine-D 00:00: 04:59 (four) [place] (BROMFED 00 :00 times Medical DM) 2-30-10 daily for Bra nch mg/5 mL 10 days. syrup bromphenira 2023-0 3- No [id number] 5mL Take 5 mL Univers mine-pseudo 3-30 [...] Indication s: acute pain benzonatate 2023-0 Yes [id number] 100mg Take 1 Univers 100 mg 3-23 [...] Indication s: acute pain benzonatate 2023-0 Yes [id number] 100mg Take 1 Univers 100 mg 3-23 [...] Indication s: acute pain benzonatate 2023-0 Yes [id number] 100mg Take 1 Univers 100 mg 3-23 [...] Indication s: acute pain benzonatate 2023-0 Yes [id number] 100mg Take 1 Univers 100 mg 3-23 [...] Indication s: acute pain benzonatate 2023-0 Yes [id number] 100mg Take 1 Univers 100 mg 3-23 [...] Indication s: acute pain benzonatate 2023-0 Yes [id number] 100mg Take 1 Univers 100 mg 3-23 [...] Indication s: acute pain benzonatate 2023-0 Yes [id number] 100mg Take 1 Univers 100 mg 3-23 [...] Indication s: acute pain benzonatate 2023-0 Yes [id number] 100mg Take 1 Univers 100 mg 3-23 [...] Indication s: acute pain benzonatate 2023-0 Yes [id number] 100mg Take 1 Univers 100 mg 3-23 [...] Indication s: acute pain benzonatate 2023-0 Yes [id number] 100mg Take 1 Univers 100 mg 3-23 [...] Indication s: acute pain benzonatate 2023-0 Yes [id number] 100mg Take 1 Univers 100 mg 3-23 [...] Indication s: acute pain benzonatate 2023-0 Yes [id number] 100mg Take 1 Univers 100 mg 3-23 [...] Indication s: acute pain benzonatate 2023-0 Yes [id number] 100mg Take 1 Univers 100 mg 3-23 [...] Indication s: acute pain benzonatate 2023-0 Yes [id number] 100mg Take 1 Univers 100 mg 3-23 [...] Indication s: acute pain benzonatate 2023-0 Yes [id number] 100mg Take 1 Univers 100 mg 3-23 [...] Indication s: acute pain benzonatate 2023-0 Yes [id number] 100mg Take 1 Univers 100 mg 3-23 [...] Indication s: acute pain benzonatate 3-0 Yes [id number] 100mg Take 1 Univers 100 mg 3-23 [...] Indication s: acute pain benzonatate 2022-0 Yes [id number] 100mg Take 1 Univers 100 mg 3-23 capsule by ity of capsule 00:00: mouth 3 [place] 00 (three) Medical times Branch daily as needed for Cough. nirmatrelvi 2022-0 Yes [id number] 3{tbl} Take 3 Univers r-ritonavir 3-16 tablets by it y of (PAXLOVID, 00:00: mouth in [place] EUA,) 300 00 the Medical mg (150 mg morning Branch x 2)-100 mg and 3 tablet tablets in the evening. nirmatrelvi 2022-0 Yes [id number] 3{tbl} Take 3 Univers r-ritonavir 3-16 tablets by it y of (PAXLOVID, 00:00: mouth in [place] EUA,) 300 00 the Medical mg (150 mg morning Branch x 2)-100 mg and 3 tablet tablets in the evening. nirmatrelvi 2022-0 Yes [id number] 3{tbl} Take 3 Univers r-ritonavir 3-16 tablets by it y of (PAXLOVID, 00:00: mouth in [place] EUA,) 300 00 the Medical mg (150 mg morning Branch x 2)-100 mg and 3 tablet tablets in the evening. nirwitrelvi 2022-0 Yes [id number] 3{tbl} Take 3 Univers r-ritonavir 3-16 tablets by it y of (PAXLOVID, 00:00: mouth in [place] EUA,) 300 00 the Medical mg (150 mg morning Branch x 2)-100 mg and 3 tablet tablets in the evening. nirmatrelvi 2022-0 Yes [id number] 3{tbl} Take 3 Univers r-ritonavir 3-16 tablets by it y of (PAXLOVID, 00:00: mouth in [place] EUA,) 300 00 the Medical mg (150 mg morning Branch x 2)-100 mg and 3 tablet tablets in the evening. nirmatrelvi 2022-0 Yes [id number] 3{tbl} Take 3 Univers r-ritonavir 3-16 tablets by it y of (PAXLOVID, 00:00: mouth in [place] EUA,) 300 00 the Medical mg (150 mg morning Branch x 2)-100 mg and 3 tablet tablets in the evening. nirwitrelvi 2022-0 Yes [id number] 3{tbl} Take 3 Univers r-ritonavir 3-16 tablets by it y of (PAXLOVID, 00:00: mouth in [place] EUA,) 300 00 the Medical mg (150 mg morning Branch x 2)-100 mg and 3 tablet tablets in the evening. nirwitrelvi 2022-0 Yes [id number] 3{tbl} Take 3 Univers r-ritonavir 3-16 tablets by it y of (PAXLOVID, 00:00: mouth in [place] EUA,) 300 00 the Medical mg (150 mg morning Branch x 2)-100 mg and 3 tablet tablets in the evening. nirmatrelvi 2022-0 Yes [id number] 3{tbl} Take 3 Univers r-ritonavir 3-16 tablets by it y of (PAXLOVID, 00:00: mouth in [place] EUA,) 300 00 the Medical mg (150 mg morning Branch x 2)-100 mg and 3 tablet tablets in the evening. nirwitrelvi 2022-0 Yes [id number] 3{tbl} Take 3 Univers r-ritonavir 3-16 tablets by it y of (PAXLOVID, 00:00: mouth in [place] EUA,) 300 00 the Medical mg (150 mg morning Branch x 2)-100 mg and 3 tablet tablets in the evening. [facility] Yes [id number] 3{tbl} Take 3 Univers r-ritonavir 3-16 tablets by it y of (PAXLOVID, 00:00: mouth in [place] EUA,) 300 00 the Medical mg (150 mg morning Branch x 2)-100 mg and 3 tablet tablets in the evening. nirmatrelvi Yes [id number] 3{tbl} Take 3 Univers r-ritonavir 3-16 tablets by it y of (PAXLOVID, 00:00: mouth in [place] EUA,) 300 00 the Medical mg (150 mg morning Branch x 2)-100 mg and 3 tablet tablets in the evening. nirwitrelvi Yes [id number] 3{tbl} Take 3 Univers r-ritonavir 3-16 tablets by it y of (PAXLOVID, 00:00: mouth in [place] EUA,) 300 00 the Medical mg (150 mg morning Branch x 2)-100 mg and 3 tablet tablets in the evening. nirwitrelvi 2022- No [id number] 3{tbl} Take 3 Univers r-ritonavir 3-16 - tablets by i ty of (PAXLOVID, 00:00: 00:00 mouth in [place] EUA,) 300 00 :00 the Medical mg (150 mg morning Branch x 2)-100 mg and 3 tablet tablets in the evening. penicillin 2022- No [id number] 1.210 U nivers g 04-12 ity of benzathine 20:30: 19:50 [place] (BICILLIN 00 :00 Medical L-A) Branch injection 1.2 Million Units penicillin 2022- No [id number] 1.210 1.2 U nivers g 04-12 Million ity of benzathine 20:30: 19:50 [place], [place] (BICILL[place] 00 :00 Intramuscu Medi carlos L-A) lar, ONCE, Branch injection 1 dose, On 1.2 Million Ara 04/12/22 Units at 1430, WILY
Re ason for Anti-Infec tive: Documented Infection< br>Documen manfred Infection Site: HEENT
D uration of Therapy: Other (see Comments) methylPREDN 2021-02- No [id number] 40mg Univers ISolone sod 02-17- ity of succ 17:15: 16:31 [place] (SOLU-MEDRO 00 :00 Medical L (PF)) Branch injection 40 mg methylPREDN 2021-02- No [id number] 40mg 40 mg, Univers ISolone sod 02-17 Intramuscu i ty of succ 17:15: 16:31 lar, ONCE, [place] (SOLU-MEDRO 00 :00 1 dose, On Me dical L (PF)) Mon Branch injection 12/18/21 at 40 mg 1115, Routine bromphenira 2021-02 Yes [id number] 5mL Take 5 mL Univers mine-pseudo 1-07 by mouth 4 it y of ephedrine-D 00:00: (four) [place] (BROMFED 00 times Medical DM) 2-30-10 daily as Bran ch mg/5 mL needed for syrup Congestion /Allergies . bromphenira 2021-02 Yes [id number] 5mL Take 5 mL Univers mine-pseudo 1-07 by mouth 4 it y of ephedrine-D 00:00: (four) [place] (BROMFED 00 times Medical DM) 2-30-10 daily as Bran ch mg/5 mL needed for syrup Congestion /Allergies . bromphenira 2021-02 Yes [id number] 5mL Take 5 mL Univers mine-pseudo 1-07 by mouth 4 it y of ephedrine-D 00:00: (four) [place] (BROMFED 00 times Medical DM) 2-30-10 daily as Bran ch mg/5 mL needed for syrup Congestion /Allergies . bromphenira 2021-02 Yes [id number] 5mL Take 5 mL Univers mine-pseudo 1-07 by mouth 4 it y of ephedrine-D 00:00: (four) [place] (BROMFED 00 times Medical DM) 2-30-10 daily as Bran ch mg/5 mL needed for syrup Congestion /Allergies . bromphenira 2021-02 Yes [id number] 5mL Take 5 mL Univers mine-pseudo 1-07 by mouth 4 it y of ephedrine-D 00:00: (four) [place] (BROMFED 00 times Medical DM) 2-30-10 daily as Bran ch mg/5 mL needed for syrup Congestion /Allergies . bromphenira 2021-02 Yes [id number] 5mL Take 5 mL Univers mine-pseudo 1-07 by mouth 4 it y of ephedrine-D 00:00: (four) [place] (BROMFED 00 times Medical DM) 2-30-10 daily as Bran ch mg/5 mL needed for syrup Congestion /Allergies . bromphenira 2021-02 Yes [id number] 5mL Take 5 mL Univers mine-pseudo 1-07 by mouth 4 it y of ephedrine-D 00:00: (four) [place] (BROMFED 00 times Medical DM) 2-30-10 daily as Bran ch mg/5 mL needed for syrup Congestion /Allergies . bromphenira 2021-02 Yes [id number] 5mL Take 5 mL Univers mine-pseudo 1-07 by mouth 4 it y of ephedrine-D 00:00: (four) [place] (BROMFED 00 times Medical DM) 2-30-10 daily as Bran ch mg/5 mL needed for syrup Congestion /Allergies . bromphen2021-02 Yes [id number] 5mL Take 5 mL Univers mine-pseudo 1-07 by mouth 4 it y of ephedrine-D 00:00: (four) [place] (BROMFED 00 times Medical DM) 2-30-10 daily as Bran ch mg/5 mL needed for syrup Congestion /Allergies . bromphenira 2021-02 Yes [id number] 5mL Take 5 mL Univers mine-pseudo 1-07 by mouth 4 it y of ephedrine-D 00:00: (four) [place] (BROMFED 00 times Medical DM) 2-30-10 daily as Bran ch mg/5 mL needed for syrup Congestion /Allergies . bromphenira 2021-02 Yes [id number] 5mL Take 5 mL Univers mine-pseudo 1-07 by mouth 4 it y of ephedrine-D 00:00: (four) [place] (BROMFED 00 times Medical DM) 2-30-10 daily as Bran ch mg/5 mL needed for syrup Congestion /Allergies . bromphenira 2021-02 Yes [id number] 5mL Take 5 mL Univers mine-pseudo 1-07 by mouth 4 it y of ephedrine-D 00:00: (four) [place] (BROMFED 00 times Medical DM) 2-30-10 daily as Bran ch mg/5 mL needed for syrup Congestion /Allergies . bromphenira 2021-02 Yes [id number] 5mL Take 5 mL Univers mine-pseudo 1-07 by mouth 4 it y of ephedrine-D 00:00: (four) [place] (BROMFED 00 times Medical DM) 2-30-10 daily as Bran ch mg/5 mL needed for syrup Congestion /Allergies . bromphenira 2021-02 Yes [id number] 5mL Take 5 mL Univers mine-pseudo 1-07 by mouth 4 it y of ephedrine-D 00:00: (four) [place] (BROMFED 00 times Medical DM) 2-30-10 daily as Bran ch mg/5 mL needed for syrup Congestion /Allergies . bromphenira 2021-02 Yes [id number] 5mL Take 5 mL Univers mine-pseudo 1-07 by mouth 4 it y of ephedrine-D 00:00: (four) [place] (BROMFED 00 times Medical DM) 2-30-10 daily as Bran ch mg/5 mL needed for syrup Congestion /Allergies . bromphenira 2021-02 Yes [id number] 5mL Take 5 mL Univers mine-pseudo 1-07 by mouth 4 it y of ephedrine-D 00:00: (four) [place] (BROMFED 00 times Medical DM) 2-30-10 daily as Bran ch mg/5 mL needed for syrup Congestion /Allergies . bromphenira 2021-02 Yes [id number] 5mL Take 5 mL Univers mine-pseudo 1-07 by mouth 4 it y of ephedrine-D 00:00: (four) [place] (BROMFED 00 times Medical DM) 2-30-10 daily as Bran ch mg/5 mL needed for syrup Congestion /Allergies . bromphenira 2021-02 Yes [id number] 5mL Take 5 mL Univers mine-pseudo 1-07 by mouth 4 it y of ephedrine-D 00:00: (four) [place] (BROMFED 00 times Medical DM) 2-30-10 daily as Bran ch mg/5 mL needed for syrup Congestion /Allergies . bromphenira 2021-02 Yes [id number] 5mL Take 5 mL Univers mine-pseudo 1-07 by mouth 4 it y of ephedrine-D 00:00: (four) [place] (BROMFED 00 times Medical DM) 2-30-10 daily as Bran ch mg/5 mL needed for syrup Congestion /Allergies . bromphenira 2021-02 Yes [id number] 5mL Take 5 mL Univers mine-pseudo 1-07 by mouth 4 it y of ephedrine-D 00:00: (four) [place] (BROMFED 00 times Medical DM) 2-30-10 daily as Bran ch mg/5 mL needed for syrup Congestion /Allergies . bromphenira 2021-02 Yes [id number] 5mL Take 5 mL [facility] mine-pseudo 1-07 by mouth 4 it y of ephedrine-D 00:00: ([place] (BROMFED 00 times Medical DM) 2-30-10 daily as Bran ch mg/5 mL needed for syrup Congestion /Allergies . bromphenira 2021-02 Yes [id number] 5mL Take 5 mL [facility] mine-pseudo 1-07 by mouth 4 it y of ephedrine-D 00:00: ([place] (BROMFED 00 times Medical DM) 2-30-10 daily as Bran ch mg/5 mL needed for syrup Congestion /Allergies . bromphenira 2021-02 Yes [id number] 5mL Take 5 mL [facility] mine-pseudo 1-07 by mouth 4 it y of ephedrine-D 00:00: (four[place] (BROMFED 00 times Medical DM) 2-30-10 daily as Bran ch mg/5 mL needed for syrup Congestion /Allergies . bromphenira 2021-02 Yes [id number] 5mL Take 5 mL [facility] mine-pseudo 1-07 by mouth 4 it y of ephedrine-D 00:00: (four[place] (BROMFED 00 times Medical DM) 2-30-10 daily as Bran ch mg/5 mL needed for syrup Congestion /Allergies . bromphenira 2021-02 Yes [id number] 5mL Take 5 mL [facility] mine-pseudo 1-07 by mouth 4 it y of ephedrine-D 00:00: (four[place] (BROMFED 00 times Medical DM) 2-10 daily as Bran ch mg/5 mL needed for syrup Congestion /Allergies . ondansetron 2021-02- No [id number] 4mg [facility] (ZOFRAN-ODT 02-13 ity of ) 15:30: 14:43 [place] disintegrat 00 :00 Medical ing tablet Branch 4 mg ondansetron 2021-02- No [id number] 4mg 4 mg, Univers (ZOFRAN-ODT 02-13 Oral, ity of ) 15:30: 14:43 ONCE, 1 [place] disintegrat 00 :00 dose, On Medi carlos ing tablet Ara Branch 4 mg 12/14/21 at 1030, Routine bromphenira 2021-02- No [id number] 5mL Take 5 mL [facility] mine-pseudo 02-13 by mouth 4 i ty of ephedrine-D 00:00: 05:59 (four) [place] M 2- 00 :00 times Medical mg/5 mL daily as Branch syrup needed for Congestion /Allergies for up to 5 days. oseltamivir 2021-02- No [id number] 75mg Take 1 [facility] (TAMIFLU) 02-13 capsule by ity of 75 mg 00:00: 05:59 mouth in [place] capsule 00 :00 the Medical morning Branch and 1 capsule in the evening. Do all this for 5 days. bromphenira 2021-02- No [id number] 5mL Take 5 mL [facility] mine-pseudo 02-13 by mouth 4 i ty of ephedrine-D 00:00: 05:59 (four) [place] M 230-10 00 :00 times Medical mg/5 mL daily as Branch syrup needed for Congestion /Allergies for up to 5 days. oseltamivir 2021-02- No [id number] 75mg Take 1 [facility] (TAMIFLU) 02-13 capsule by ity of 75 mg 00:00: 05:59 mouth in [place] capsule 00 :00 the Medical morning Branch and 1 capsule in the evening. Do all this for 5 days. oseltamivir 2021-02- No [id number] 75mg Take 1 [facility] (TAMIFLU) 02-13 capsule by ity of 75 mg 00:00: 05:59 mouth in [place] capsule 00 :00 the Medical morning Branch and 1 capsule in the evening. Do all this for 5 days. oseltamivir 2021-02- No [id number] 75mg Take 1 [facility] (TAMIFLU) 02-13 capsule by ity of 75 mg 00:00: 05:59 mouth in [place] capsule 00 :00 the Medical morning Branch and 1 capsule in the evening. Do all this for 5 days. bromphenira 2021-02- No [id number] 5mL Take 5 mL [facility] mine-pseudo 02-13 by mouth 4 i ty of ephedrine-D 00:00: 00:00 (four) [place] M 230-10 00 :00 times Medical mg/5 mL daily as Branch syrup needed for Congestion /Allergies for up to 5 days. amoxicillin 2021- No [id number] 1{tbl} Take 1 Univers -clavulanat 8- 08-18 tablet by it y of e 00:00: 04:59 mouth in [place] (AUGMENTIN) 00 :00 the Medical 875-125 mg morning Branch per tablet and 1 tablet in the evening. Do all this for 10 days. amoxicillin 2021- No [id number] 1{tbl} Take 1 Univers -clavulanat 8-07 08-18 tablet by it y of e 00:00: 04:59 mouth in [place] (AUGMENTIN) 00 :00 the Medical 875-125 mg morning Branch per tablet and 1 tablet in the evening. Do all this for 10 days. polymyxin B 2021- No [id number] 1[drp] Place 1 [facility] sulf-trimet 8- 08-15 Drop in ity of hoprim 00:00: 04:59 left eye [place] 10,000 00 :00 every 6 Medical unit- 1 (six) Branch mg/mL hours for ophthalmic 7 days. drops polymyxin B 2021- No [id number] 1[drp] Place 1 [facility] sulf-trimet 8-07 08-15 Drop in ity of hoprim 00:00: 04:59 left eye [place] 10,000 00 :00 every 6 Medical unit- 1 (six) Branch mg/mL hours for ophthalmic 7 days. drops predniSONE 2021- No [id number] 10mg Take 1 [facility] 10 mg 09-17 tablet by ity of tablet 00:00: 04:59 mouth in [place] 00 :00 the [facility] for 3 days. predniSONE 2021- No [id number] 10mg Take 1 Univers 10 mg 809-21 tablet by ity of tablet 00:00: 04:59 mouth in [place] 00 :00 [facility] for 3 days. penicillin 2021- No [id number] 1.210 U nivers g 08-23 07 ity of benzathine 16:15: 15:10 [place] (BICILLIN 00 :00 Medical L-A) Branch injection 1.2 Million Units penicillin 2021- No [id number] 1.210 1.2 U nivers g 08-23 07 Million ity of benzathine 16:15: 15:10 [place] (BICILLIN 00 :00 Intr[facility] Medi carlos L-A) lar, ONCE, Branch injection 1 dose, On 1.2 Million Wed Units 08/23/21 at 1115, WILY
Re ason for Anti-Infec tive: Documented Infection< br>Documen manfred Infection Site: HEENT
D uration of Therapy: Other (see Comments) bromphenira Yes [id number] 5mL Take 5 mL [facility] mine-pseudo 7-13 by mouth 4 it y of ephedrine-D 00:00: (four) [place] (BROMFED 00 times Medical DM) 2-30-10 daily as Bran ch mg/5 mL needed for syrup Congestion /Allergies . bromphenira Yes [id number] 5mL Take 5 mL [facility] mine-pseudo 7-13 by mouth 4 it y of ephedrine-D 00:00: (four[place] (BROMFED 00 times Medical DM) 2-30-10 daily as Bran ch mg/5 mL needed for syrup Congestion /Allergies . bromphenira Yes [id number] 5mL Take 5 mL [facility] mine-pseudo 7-13 by mouth 4 it y of ephedrine-D 00:00: (four[place] (BROMFED 00 times Medical DM) 2-30-10 daily as Bran ch mg/5 mL needed for syrup Congestion /Allergies . bromphenira 0 Yes [id number] 5mL Take 5 mL [facility] mine-pseudo 7-13 by mouth 4 it y of ephedrine-D 00:00: (four) [place] srivastava M (BROMFED 00 times Medical DM) 2-30-10 daily as Bran ch mg/5 mL needed for syrup Congestion /Allergies . bromphenira 2021- No [id number] 5mL Take 5 mL [facility] mine-pseudo 7-13 11-03 by mouth 4 i ty of ephedrine-D 00:00: 00:00 (four) [place] (BROMFED 00 :00 times Medical DM) 2-30-10 daily as Bran ch mg/5 mL needed for syrup Congestion /Allergies . ARIPiprazol Yes 2mg Take 2 mg U nivers e (ABILIFY) 4-03 by mouth ity of 2 mg tablet 15:45: daily. [address] ARIPiprazol Yes 2mg Take 2 mg U nivers e (ABILIFY) 4-03 by mouth ity of 2 mg tablet 15:45: daily. [address] ARIPiprazol Yes 2mg Take 2 mg U nivers e (ABILIFY) 4-03 by mouth ity of 2 mg tablet 15:45: daily. [address] ARIPiprazol 0 Yes 2mg Take 2 mg U nivers e (ABILIFY) 4-03 by mouth ity of 2 mg tablet 15:45: daily. [address] ARIPiprazol 0 Yes 2mg Take 2 mg U nivers e (ABILIFY) 4-03 by mouth ity of 2 mg tablet 15:45: daily. [address] ARIPiprazol 0 Yes 2mg Take 2 mg U nivers e (ABILIFY) 4-03 by mouth ity of 2 mg tablet 15:45: daily. [address] ARIPiprazol 0 Yes 2mg Take 2 mg U nivers e (ABILIFY) 4-03 by mouth ity of 2 mg tablet 15:45: daily. [address] ARIPiprazol 0 Yes 2mg Take 2 mg U nivers e (ABILIFY) 4-03 by mouth ity of 2 mg tablet 15:45: daily. [address] ARIPiprazol 0 Yes 2mg Take 2 mg U nivers e (ABILIFY) 4-03 by mouth ity of 2 mg tablet 15:45: daily. [address] ARIPiprazol 0 Yes 2mg Take 2 mg U nivers e (ABILIFY) 4-03 by mouth ity of 2 mg tablet 15:45: daily. [address] ARIPiprazol 0 Yes 2mg Take 2 mg U nivers e (ABILIFY) 4-03 by mouth ity of 2 mg tablet 15:45: daily. [address] ARIPiprazol 0 Yes 2mg Take 2 mg U nivers e (ABILIFY) 4-03 by mouth ity of 2 mg tablet 15:45: daily. [address] ARIPiprazol 0 Yes 2mg Take 2 mg U nivers e (ABILIFY) 4-03 by mouth ity of 2 mg tablet 15:45: daily. [address] ARIPiprazol Yes 2mg Take 2 mg U nivers e (ABILIFY) 4-03 by mouth ity of 2 mg tablet 15:45: daily. [address] ARIPiprazol 0 Yes 2mg Take 2 mg U nivers e (ABILIFY) 4-03 by mouth ity of 2 mg tablet 15:45: daily. [address] ARIPiprazol 0 Yes 2mg Take 2 mg U nivers e (ABILIFY) 4-03 by mouth ity of 2 mg tablet 15:45: daily. [address] ARIPiprazol 0 Yes 2mg Take 2 mg U nivers e (ABILIFY) 4-03 by mouth ity of 2 mg tablet 15:45: daily. [address] ARIPiprazol 0 Yes 2mg Take 2 mg U nivers e (ABILIFY) 4-03 by mouth ity of 2 mg tablet 15:45: daily. [address] ARIPiprazol Yes 2mg Take 2 mg U nivers e (ABILIFY) 4-03 by mouth ity of 2 mg tablet 15:45: daily. [address] ARIPiprazol Yes 2mg Take 2 mg U nivers e (ABILIFY) 4-03 by mouth ity of 2 mg tablet 15:45: daily. [address] ARIPiprazol Yes 2mg Take 2 mg U nivers e (ABILIFY) 4-03 by mouth ity of 2 mg tablet 15:45: daily. [address] ARIPiprazol Yes 2mg Take 2 mg U nivers e (ABILIFY) 4-03 by mouth ity of 2 mg tablet 15:45: daily. [address] ARIPiprazol Yes 2mg Take 2 mg U nivers e (ABILIFY) 4-03 by mouth ity of 2 mg tablet 15:45: daily. [address] ARIPiprazol Yes 2mg Take 2 mg U nivers e (ABILIFY) 4-03 by mouth ity of 2 mg tablet 15:45: daily. [address] ARIPiprazol Yes 2mg Take 2 mg U nivers e (ABILIFY) 4-03 by mouth ity of 2 mg tablet 15:45: daily. [address] ARIPiprazol Yes 2mg Take 2 mg U nivers e (ABILIFY) 4-03 by mouth ity of 2 mg tablet 15:45: daily. [address] ARIPiprazol Yes 2mg Take 2 mg U nivers e (ABILIFY) 4-03 by mouth ity of 2 mg tablet 15:45: daily. [address] ARIPiprazol Yes 2mg Take 2 mg U nivers e (ABILIFY) 4-03 by mouth ity of 2 mg tablet 15:45: daily. [address] ARIPiprazol Yes 2mg Take 2 mg U nivers e (ABILIFY) 4-03 by mouth ity of 2 mg tablet 15:45: daily. [address] ARIPiprazol Yes 2mg Take 2 mg U nivers e (ABILIFY) 4-03 by mouth ity of 2 mg tablet 15:45: daily. [address] ARIPiprazol Yes 2mg Take 2 mg U nivers e (ABILIFY) 4-03 by mouth ity of 2 mg tablet 15:45: daily. [address] aluminum Yes [id number] Apply to Univers chloride 4-15 affected ity of (DRYSOL) 20 00:00: areas on [place] % external 00 palms Medical solution nightly as Branc h tolerated for one week then decrease to every other night aluminum Yes [id number] Apply to [facility] chloride 4-15 affected ity of (DRYSOL) 20 00:00: [place] % external 00 palms Medical solution nightly as Branc h tolerated for one week then decrease to every other night aluminum Yes [id number] Apply to [facility] chloride 4-15 affected ity of (DRYSOL) 20 00:00: areas [place] % external 00 palms Medical solution nightly as Branc h tolerated for one week then decrease to every other night aluminum Yes [id number] Apply to [facility] chloride 4-15 affected ity of (DRYSOL) 20 00:00: areas [place] % external 00 palms Medical solution nightly as Branc h tolerated for one week then decrease to every other night aluminum Yes [id number] Apply to [facility] chloride 4-15 affected ity of (DRYSOL) 20 00:00: areas on [place] % external 00 palms Medical solution nightly as Branc h tolerated for one week then decrease to every other night aluminum Yes [id number] Apply to [facility] chloride 4-15 affected ity of (DRYSOL) 20 00:00: areas on [place] % external 00 palms Medical solution nightly as Branc h tolerated for one week then decrease to every other night aluminum 2019-0 Yes [id number] Apply to [facility] chloride 4-15 affected ity of (DRYSOL) 20 00:00: areas on [place] % external 00 palms Medical solution nightly as Branc h tolerated for one week then decrease to every other night aluminum 2019-0 Yes [id number] Apply to [facility] chloride 4-15 affected ity of (DRYSOL) 20 00:00: areas on [place] % external 00 palms Medical solution nightly as Branc h tolerated for one week then decrease to every other night aluminum 2019-0 Yes [id number] Apply to [facility] chloride 4-15 affected ity of (DRYSOL) 20 00:00: areas [place] % external 00 palms Medical solution nightly as Branc h tolerated for one week then decrease to every other night aluminum 20190 Yes [id number] Apply to [facility] chloride 4-15 affected ity of (DRYSOL) 20 00:00: areas [place] % external 00 palms Medical solution nightly as Branc h tolerated for one week then decrease to every other night aluminum 20190 Yes [id number] Apply to [facility] chloride 4-15 affected ity of (DRYSOL) 20 00:00: areas [place] % external 00 palms Medical solution nightly as Branc h tolerated for one week then decrease to every other night aluminum 2019-0 Yes [id number] Apply to [facility] chloride 4-15 affected ity of (DRYSOL) 20 00:00: areas [place] % external 00 palms Medical solution nightly as Branc h tolerated for one week then decrease to every other night aluminum 2019-0 Yes [id number] Apply to [facility] chloride 4-15 affected ity of (DRYSOL) 20 00:00: areas [place] % external 00 palms Medical solution nightly as Branc h tolerated for one week then decrease to every other night aluminum 2019-0 Yes [id number] Apply to [facility] chloride 4-15 affected ity of (DRYSOL) 20 00:00: areas [place] % external 00 palms Medical solution nightly as Branc h tolerated for one week then decrease to every other night aluminum 2019-0 Yes [id number] Apply to [facility] chloride 4-15 affected ity of (DRYSOL) 20 00:00: areas [place] % external 00 palms Medical solution nightly as Branc h tolerated for one week then decrease to every other night aluminum 2019-0 Yes [id number] Apply to [facility] chloride 4-15 affected ity of (DRYSOL) 20 00:00: areas [place] % external 00 palms Medical solution nightly as Branc h tolerated for one week then decrease to every other night aluminum 2019-0 Yes [id number] Apply to [facility] chloride 4-15 affected ity of (DRYSOL) 20 00:00: [place] % external 00 palms Medical solution nightly as Branc h tolerated for one week then decrease to every other night aluminum 2018-0 Yes [id number] Apply to [facility] chloride 4-15 affected ity of (DRYSOL) 20 00:00: areas [place] % external 00 palms Medical solution nightly as Branc h tolerated for one week then decrease to every other night aluminum 2019-0 Yes [id number] Apply to [facility] chloride 4-15 affected ity of (DRYSOL) 20 00:00: areas [place] % external 00 palms Medical solution nightly as Branc h tolerated for one week then decrease to every other night aluminum 2019-0 Yes [id number] Apply to [facility] chloride 4-15 affected ity of (DRYSOL) 20 00:00: areas [place] % external 00 palms Medical solution nightly as Branc h tolerated for one week then decrease to every other night aluminum 2019-0 Yes [id number] Apply to [facility] chloride 4-15 affected ity of (DRYSOL) 20 00:00: areas on [place] % external 00 palms Medical solution nightly as Branc h tolerated for one week then decrease to every other night aluminum 2019-0 Yes [id number] Apply to [facility] chloride 4-15 affected ity of (DRYSOL) 20 00:00: areas [place] % external 00 palms Medical solution nightly as Branc h tolerated for one week then decrease to every other night aluminum 2019-0 Yes [id number] Apply to [facility] chloride 4-15 affected ity of (DRYSOL) 20 00:00: areas [place] % external 00 palms Medical solution nightly as Branc h tolerated for one week then decrease to every other night aluminum 2019 Yes [id number] Apply to [facility] chloride 4-15 affected ity of (DRYSOL) 20 00:00: areas [place] % external 00 palms Medical solution nightly as Branc h tolerated for one week then decrease to every other night aluminum Yes [id number] Apply to [facility] chloride 4-15 affected ity of (DRYSOL) 20 00:00: areas [place] % external 00 palms Medical solution nightly as Branc h tolerated for one week then decrease to every other night aluminum Yes [id number] Apply to [facility] chloride 4-15 affected ity of (DRYSOL) 20 00:00: areas [place] % external 00 palms Medical solution nightly as Branc h tolerated for one week then decrease to every other night aluminum Yes [id number] Apply to [facility] chloride 4-15 affected ity of (DRYSOL) 20 00:00: areas [place] % external 00 palms Medical solution nightly as Branc h tolerated for one week then decrease to every other night aluminum Yes [id number] Apply to [facility] chloride 4-15 affected ity of (DRYSOL) 20 00:00: areas [place] % external 00 palms Medical solution nightly as Branc h tolerated for one week then decrease to every other night aluminum Yes [id number] Apply to [facility] chloride 4-15 affected ity of (DRYSOL) 20 00:00: areas on [place] % external 00 palms Medical solution nightly as Branc h tolerated for one week then decrease to every other night aluminum Yes [id number] Apply to [facility] chloride 4-15 affected ity of (DRYSOL) 20 00:00: areas on [place] % external 00 palms Medical solution nightly as Branc h tolerated for one week then decrease to every other night aluminum Yes [id number] Apply to [facility] chloride 4-15 affected ity [...] Branch daily. clindamycin 2019-0 Yes Apply to U nivers -benzoyl 2-20 area(s) ity of peroxide 00:00: [...] 20 mg 2-04 ity of capsule 00:00: [place] [facility] FLUoxetine 2018-1 Yes Univers 20 mg 2-04 ity of capsule 00:00: [place] [facility] FLUoxetine 2018- Yes Univers 20 mg 2-04 ity of capsule 00:00: [place] [facility] FLUoxetine 2018- Yes Univers 20 mg 2-04 ity of capsule 00:00: [place] [facility] FLUoxetine 2018- Yes Univers 20 mg 2-04 ity of capsule 00:00: [place] [facility] FLUoxetine 2018- Yes Univers 20 mg 2-04 ity of capsule 00:00: [place] [facility] FLUoxetine 2018- Yes Univers 20 mg 2-04 ity of capsule 00:00: [place] [address] Medical Branch FLUoxetine 2018- Yes Univers 20 mg 2-04 ity of capsule 00:00: [place] [address] Medical Branch FLUoxetine 2017- Yes Univers 20 mg 2-04 ity of capsule 00:00: [place] [address] Medical Branch FLUoxetine 2018- Yes Univers 20 mg 2-04 ity of capsule 00:00: [place] [facility] FLUoxetine 2018- Yes Univers 20 mg 2-04 ity of capsule 00:00: [place] [facility] FLUoxetine 2018- Yes Univers 20 mg 2-04 ity of capsule 00:00: [place] [facility] FLUoxetine 2018- Yes Univers 20 mg 2-04 ity of capsule 00:00: [place] [facility] FLUoxetine 2018- Yes Univers 20 mg 2-04 ity of capsule 00:00: [place] [address] Medical Branch FLUoxetine 2018- Yes Univers 20 mg 2-04 ity of capsule 00:00: [place] [facility] FLUoxetine 2018- Yes Univers 20 mg 2-04 ity of capsule 00:00: [place] [facility] FLUoxetine 2018- Yes Univers 20 mg 2-04 ity of capsule 00:00: [place] [facility] FLUoxetine 2018- Yes Univers 20 mg 2-04 ity of capsule 00:00: [place] [facility] FLUoxetine 2018- Yes Univers 20 mg 2-04 ity of capsule 00:00: [place] [facility] FLUoxetine 2018- Yes Univers 20 mg 2-04 ity of capsule 00:00: [place] [address] Medical Branch FLUoxetine 2018- Yes Univers 20 mg 2-04 ity of capsule 00:00: [place] [facility] FLUoxetine 2018- Yes Univers 20 mg 2-04 ity of capsule 00:00: [place] 00 Medical Branch FLUoxetine 2018- Yes Univers 20 mg 2-04 ity of capsule 00:00: [place] 00 Medical Branch FLUoxetine 2018- Yes Univers 20 mg 2-04 ity of capsule 00:00: [place] 00 Medical Branch Immunizations Ordered Filled Immunization Date Status Comments [facility] e Immunization Name Name SARS-COV-2 COVID-19 [...] Unive rsity of PFIZER VACCINE 00:00:00 [place] [facility] Branch SARS-COV-2 COVID-19 2020-05-25 Completed Unive rsity of PFIZER VACCINE 00:00:00 [place] [facility] SARS-COV-2 COVID-19 2020-05-25 Completed Unive rsity of PFIZER VACCINE 00:00:00 [place] [facility] Branch SARS-COV-2 COVID-19 2020-05-25 Completed Unive rsity of PFIZER VACCINE 00:00:00 [place] [facility] SARS-COV-2 COVID-19 2020-05-25 Completed Unive rsity of PFIZER VACCINE 00:00:00 [place] [facility] Branch SARS-COV-2 COVID-19 2020-05-25 Completed Unive rsity of PFIZER VACCINE 00:00:00 [place] [facility] Branch SARS-COV-2 COVID-19 2020-05-25 Completed Unive rsity of PFIZER VACCINE 00:00:00 [place] [facility] Branch SARS-COV-2 COVID-19 2020-05-25 Completed Unive rsity of PFIZER VACCINE 00:00:00 [place] [facility] Branch SARS-COV-2 COVID-19 2020-05-25 Completed Unive rsity of PFIZER VACCINE 00:00:00 [place] [facility] SARS-COV-2 COVID-19 2020-05-25 Completed Unive rsity of PFIZER VACCINE 00:00:00 [facility] Branch SARS-COV-2 COVID-19 2020-05-25 Completed Unive rsity of PFIZER VACCINE 00:00:00 [place] [facility] SARS-COV-2 COVID-19 2020-05-25 Completed Unive rsity of PFIZER VACCINE 00:00:00 [facility] Branch SARS-COV-2 COVID-19 2020-05-25 Completed Unive rsity of PFIZER VACCINE 00:00:00 [facility] SARS-COV-2 COVID-19 2020-05-25 Completed Unive rsity of PFIZER VACCINE 00:00:00 [place] [facility] SARS-COV-2 COVID-19 2020-05-25 Completed Unive rsity of PFIZER VACCINE 00:00:00 [place] [facility] SARS-COV-2 COVID-19 2020-05-25 Completed Unive rsity of PFIZER VACCINE 00:00:00 [facility] Branch SARS-COV-2 COVID-19 2020-05-25 Completed Unive rsity of PFIZER VACCINE 00:00:00 [place] [facility] SARS-COV-2 COVID-19 2020-05-25 Completed Unive rsity of PFIZER VACCINE 00:00:00 [place] [facility] SARS-COV-2 COVID-19 2020-05-25 Completed Unive rsity of PFIZER VACCINE 00:00:00 [facility] SARS-COV-2 COVID-19 2020-05-25 Completed Unive rsity of PFIZER VACCINE 00:00:00 [facility] Branch SARS-COV-2 COVID-19 2020-05-25 Completed Unive rsity of PFIZER VACCINE 00:00:00 [facility] SARS-COV-2 COVID-19 2020-05-25 Completed Unive rsity of PFIZER VACCINE 00:00:00 [facility] SARS-COV-2 COVID-19 2020-05-25 Completed Unive rsity of PFIZER VACCINE 00:00:00 [facility] SARS-COV-2 COVID-19 2020-05-25 Completed Unive rsity of PFIZER VACCINE 00:00:00 [place] [facility] SARS-COV-2 COVID-19 2020-05-25 Completed Unive rsity of PFIZER VACCINE 00:00:00 [facility] Branch SARS-COV-2 COVID-19 2020-05-25 Completed Unive rsity of PFIZER VACCINE 00:00:00 [facility] Branch SARS-COV-2 COVID-19 2020-05-25 Completed Unive rsity of PFIZER VACCINE 00:00:00 [facility] Branch SARS-COV-2 COVID-19 2020-05-25 Completed Unive rsity of PFIZER VACCINE 00:00:00 [facility] Branch SARS-COV-2 COVID-19 2020-05-25 Completed Unive rsity of PFIZER VACCINE 00:00:00 [facility] Branch SARS-COV-2 COVID-19 2020-05-25 Completed Unive rsity of PFIZER VACCINE 00:00:00 [facility] SARS-COV-2 COVID-19 2020-05-25 Completed Unive rsity of PFIZER VACCINE 00:00:00 [facility] Branch SARS-COV-2 COVID-19 2020-05-04 Completed Unive rsity of PFIZER VACCINE 00:00:00 [facility] Branch SARS-COV-2 COVID-19 2020-05-04 Completed Unive rsity of PFIZER VACCINE 00:00:00 [facility] Branch SARS-COV-2 COVID-19 2020-05-04 Completed Unive rsity of PFIZER VACCINE 00:00:00 [facility] SARS-COV-2 COVID-19 2020-05-04 Completed Unive rsity of PFIZER VACCINE 00:00:00 [facility] SARS-COV-2 COVID-19 2020-05-04 Completed Unive rsity of PFIZER VACCINE 00:00:00 [facility] SARS-COV-2 COVID-19 2020-05-04 Completed Unive rsity of PFIZER VACCINE 00:00:00 [facility] SARS-COV-2 COVID-19 2020-05-04 Completed Unive rsity of PFIZER VACCINE 00:00:00 [facility] SARS-COV-2 COVID-19 2020-05-04 Completed Unive rsity of PFIZER VACCINE 00:00:00 [facility] SARS-COV-2 COVID-19 2020-05-04 Completed Unive rsity of PFIZER VACCINE 00:00:00 [facility] SARS-COV-2 COVID-19 2020-05-04 Completed Unive rsity of PFIZER VACCINE 00:00:00 [facility] SARS-COV-2 COVID-19 2020-05-04 Completed Unive rsity of PFIZER VACCINE 00:00:00 [facility] SARS-COV-2 COVID-19 2020-05-04 Completed Unive rsity of PFIZER VACCINE 00:00:00 [facility] SARS-COV-2 COVID-19 2020-05-04 Completed Unive rsity of PFIZER VACCINE 00:00:00 [facility] SARS-COV-2 COVID-19 2020-05-04 Completed Unive rsity of PFIZER VACCINE 00:00:00 [facility] SARS-COV-2 COVID-19 2020-05-04 Completed Unive rsity of PFIZER VACCINE 00:00:00 [facility] SARS-COV-2 COVID-19 2020-05-04 Completed Unive rsity of PFIZER VACCINE 00:00:00 [facility] SARS-COV-2 COVID-19 2020-05-04 Completed Unive rsity of PFIZER VACCINE 00:00:00 [facility] SARS-COV-2 COVID-19 2020-05-04 Completed Unive rsity of PFIZER VACCINE 00:00:00 [facility] SARS-COV-2 COVID-19 2020-05-04 Completed Unive rsity of PFIZER VACCINE 00:00:00 [facility] SARS-COV-2 COVID-19 2020-05-04 Completed Unive rsity of PFIZER VACCINE 00:00:00 [facility] SARS-COV-2 COVID-19 2020-05-04 Completed Unive rsity of PFIZER VACCINE 00:00:00 [facility] SARS-COV-2 COVID-19 2020-05-04 Completed Unive rsity of PFIZER VACCINE 00:00:00 [facility] SARS-COV-2 COVID-19 2020-05-04 Completed Unive rsity of PFIZER VACCINE 00:00:00 [facility] SARS-COV-2 COVID-19 2020-05-04 Completed Unive rsity of PFIZER VACCINE 00:00:00 [facility] SARS-COV-2 COVID-19 2020-05-04 Completed Unive rsity of PFIZER VACCINE 00:00:00 [facility] SARS-COV-2 COVID-19 2020-05-04 Completed Unive rsity of PFIZER VACCINE 00:00:00 [facility] SARS-COV-2 COVID-19 2020-05-04 Completed Unive rsity of PFIZER VACCINE 00:00:00 [facility] SARS-COV-2 COVID-19 2020-05-04 Completed Unive rsity of PFIZER VACCINE 00:00:00 [facility] SARS-COV-2 COVID-19 2020-05-04 Completed Unive rsity of PFIZER VACCINE 00:00:00 [facility] SARS-COV-2 COVID-19 2020-05-04 Completed Unive rsity of PFIZER VACCINE 00:00:00 [facility] SARS-COV-2 COVID-19 2020-05-04 Completed Unive rsity of PFIZER VACCINE 00:00:00 [facility] Vital Signs Vital Name Observation Time Observation Value Comments Source Systolic blood 2022-08-19 19:14:00 131 mm[Hg] Univer sity of pressure [facility] Diastolic blood 2022-08-19 19:14:00 85 mm[Hg] Unive rsity of pressure [facility] Heart rate 2022-08-19 19:14:00 93 /min [facility] Body temperature 2022-08-19 19:14:00 36.94 Ivone [facility] Respiratory rate 2022-08-19 19:14:00 17 /min [facility] Body height 2022-08-19 19:14:00 165.1 cm [facility] Body weight 2022-08-19 19:14:00 80.825 kg [facility] BMI 2022-08-19 19:14:00 29.65 kg/m2 [facility] Oxygen saturation in 2022-08-19 19:14:00 97 /min [facility] Arterial blood by [facility] Pulse oximetry Branch Systolic blood 2022-07-20 16:02:00 115 mm[Hg] Univer sity of pressure [facility] Diastolic blood 2022-07-20 16:02:00 85 mm[Hg] Unive rsity of pressure [facility] Heart rate 2022-07-20 16:02:00 89 /min [facility] Body temperature 2022-07-20 16:02:00 36.94 Ivone [facility] Respiratory rate 2022-07-20 16:02:00 16 /min [facility] Body weight 2022-07-20 16:02:00 83.416 kg [facility] Oxygen saturation in 2022-07-20 16:02:00 97 /min University [facility]ial blood by [place] [facility] Pulse oximetry Branch Systolic blood 2022-07-11 16:03:00 130 mm[Hg] Univer sity of pressure [facility] Diastolic blood 2022-07-11 16:03:00 79 mm[Hg] Unive rsity of pressure [facility] Heart rate 2022-07-11 16:00:00 95 /min [facility] Body temperature 2022-07-11 16:00:00 36.83 Ivone [facility] Respiratory rate 2022-07-11 16:00:00 17 /min [facility] Body height 2022-07-11 16:00:00 165.1 cm [facility] Body weight 2022-07-11 16:00:00 81.965 kg [facility] BMI 2022-07-11 16:00:00 30.07 kg/m2 [facility] Oxygen saturation in 2022-07-11 16:00:00 96 /min University of Arterial blood by [facility] Pulse oximetry Branch Systolic blood 2022-06-02 17:13:00 113 mm[Hg] Univer sity of pressure [facility] Diastolic blood 2022-06-02 17:13:00 77 mm[Hg] Unive rsity of pressure [facility] Heart rate 2022-06-02 17:13:00 72 /min [facility] Body temperature 2022-06-02 17:13:00 36.28 Ivone [facility] Respiratory rate 2022-06-02 17:13:00 18 /min [facility] Body height 2022-06-02 17:13:00 167.6 cm [facility] Body weight 2022-06-02 17:13:00 84.868 kg [facility] BMI 2022-06-02 17:13:00 30.20 kg/m2 [facility] Oxygen saturation in 2022-06-02 17:13:00 98 /min [facility] blood by [place] [facility] P[facility]xim[facility] Body height 2022-06-01 14:02:00 165.1 cm [facility] Body weight 2022-06-01 14:02:00 85.004 kg [facility] BMI 2022-06-01 14:02:00 31.18 kg/m2 [facility] Systolic blood 2022-05-10 20:12:00 134 mm[Hg] Univer sity of pressure [facility] Diastolic blood 2022-05-10 20:12:00 82 mm[Hg] Unive rsity of pressure [facility] Heart rate 2022-05-10 20:10:00 108 /min [facility] Body temperature 2022-05-10 20:10:00 36.89 Ivone [facility] Respiratory rate 2022-05-10 20:10:00 16 /min [facility] Body height 2022-05-10 20:10:00 165.1 cm [facility] Body weight 2022-05-10 20:10:00 85.548 kg [facility] BMI 2022-05-10 20:10:00 31.38 kg/m2 [facility] Oxygen saturation in 2022-05-10 20:10:00 99 /min [facility] blood by [place] [facility] Systolic blood 2022-05-04 00:58:00 148 mm[Hg] Univer sity of pressure [facility] Diastolic blood 2022-05-04 00:58:00 80 mm[Hg] Unive rsity of pressure [facility] Heart rate 2022-05-04 00:58:00 98 /min [facility] Body temperature 2022-05-04 00:58:00 37.28 Ivone [facility] Respiratory rate 2022-05-04 00:58:00 24 /min [facility] Body height 2022-05-04 00:58:00 165.1 cm [facility] Body weight 2022-05-04 00:58:00 85.049 kg [facility] BMI 2022-05-04 00:58:00 31.20 kg/m2 [facility] Oxygen saturation in 2022-05-04 00:58:00 99 /min University of Arterial blood by [facility] Pulse oximetry Branch Systolic blood 2022-04-26 14:51:00 139 mm[Hg] Univer sity of pressure [facility] Diastolic blood 2022-04-26 14:51:00 88 mm[Hg] Unive rsity of pressure [facility] Heart rate 2022-04-26 14:50:00 112 /min [facility] Body temperature 2022-04-26 14:50:00 38.11 Ivone [facility] Respiratory rate 2022-04-26 14:50:00 16 /min [facility] Body height 2022-04-26 14:50:00 165.1 cm [facility] Body weight 2022-04-26 14:50:00 86.501 kg [facility] BMI 2022-04-26 14:50:00 31.73 kg/m2 [facility] Oxygen saturation in 2022-04-26 14:50:00 96 /min University of Arterial blood by [facility] Pulse oximetry Branch Systolic blood 2022-04-12 19:10:00 129 mm[Hg] Univer sity of pressure [facility] Diastolic blood 2022-04-12 19:10:00 84 mm[Hg] Unive rsity of pressure [facility] Heart rate 2022-04-12 19:10:00 90 /min [facility] Body temperature 2022-04-12 19:10:00 37.06 Ivone [facility] Respiratory rate 2022-04-12 19:10:00 18 /min [facility] Body height 2022-04-12 19:10:00 165.1 cm [facility] Body weight 2022-04-12 19:10:00 85.503 kg [facility] BMI 2022-04-12 19:10:00 31.37 kg/m2 [facility] Oxygen saturation in 2022-04-12 19:10:00 99 /min University [facility] Arterial blood by [facility] Pulse oximetry Branch Systolic blood 2021-12-18 16:02:00 127 mm[Hg] Univer sity of pressure [facility] Diastolic blood 2021-12-18 16:02:00 85 mm[Hg] Unive rsity of pressure [facility] Heart rate 2021-12-18 16:02:00 82 /min [facility] Body temperature 2021-12-18 16:02:00 36.44 Ivone [facility] Respiratory rate 2021-12-18 16:02:00 18 /min [facility] Body height 2021-12-18 16:02:00 165.2 cm [facility] Body weight 2021-12-18 16:02:00 83.008 kg [facility] BMI 2021-12-18 16:02:00 30.43 kg/m2 [facility] Oxygen saturation in 2021-12-18 16:02:00 98 /min University [facility] Arterial blood by [facility] Pulse oximetry Branch Systolic blood 2021-12-14 14:35:00 123 mm[Hg] Univer sity of pressure [facility] Diastolic blood 2021-12-14 14:35:00 69 mm[Hg] Unive rsity of pressure [facility] Heart rate 2021-12-14 14:35:00 109 /min [facility] Body temperature 2021-12-14 14:35:00 37 Ivone [facility] Respiratory rate 2021-12-14 14:35:00 16 /min [facility] Body weight 2021-12-14 14:35:00 83.371 kg [facility] Oxygen saturation in 2021-12-14 14:35:00 98 /min [facility] Arterial blood by [facility] Pulse oximetry Branch Systolic blood 2021-09-17 17:33:00 119 mm[Hg] Univer sity of pressure [facility] Diastolic blood 2021-09-17 17:33:00 84 mm[Hg] Unive rsity of pressure [facility] Heart rate 2021-09-17 17:33:00 96 /min [facility] Body temperature 2021-09-17 17:33:00 37.11 Ivone [facility] Respiratory rate 2021-09-17 17:33:00 16 /min [facility] Body height 2021-09-17 17:33:00 165.1 cm [facility] Body weight 2021-09-17 17:33:00 83.008 kg [facility] BMI 2021-09-17 17:33:00 30.45 kg/m2 [facility] Oxygen saturation in 2021-09-17 17:33:00 98 /min [facility]terial blood by [place] [facility] [facility] Pulse oximetry Branch Systolic blood 2021-09-07 17:21:00 129 mm[Hg] Univer sity of pressure [facility] Diastolic blood 2021-09-07 17:21:00 83 mm[Hg] Unive rsity of pressure [facility] Heart rate 2021-09-07 17:21:00 72 /min [facility] Body temperature 2021-09-07 17:21:00 36.89 Ivone [facility] Respiratory rate 2021-09-07 17:21:00 20 /min [facility] Body height 2021-09-07 17:21:00 165.1 cm [facility] Body weight 2021-09-07 17:21:00 81.874 kg [facility] BMI 2021-09-07 17:21:00 30.04 kg/m2 [facility] Oxygen saturation in 2021-09-07 17:21:00 98 /min [facility] Arterial blood by [place] [facility] [facility] Pulse oximetry Branch Systolic blood 2021-08-23 14:52:00 127 mm[Hg] Univer sity of pressure [facility] Diastolic blood 2021-08-23 14:52:00 80 mm[Hg] Unive rsity of pressure [facility] Heart rate 2021-08-23 14:52:00 93 /min [facility] Body temperature 2021-08-23 14:52:00 38.17 Ivone [facility] Respiratory rate 2021-08-23 14:52:00 17 /min [facility] Body height 2021-08-23 14:52:00 165.1 cm [facility] Body weight 2021-08-23 14:52:00 81.647 kg [facility] BMI 2021-08-23 14:52:00 29.95 kg/m2 [facility] Oxygen saturation in 2021-08-23 14:52:00 100 /min [facility] Arterial blood by [facility] Pulse oximetry [place] Procedures Procedure Date / Time Performing Clinician Source Performed THROAT CULTURE 2022-08-19 19:57:00 [place] [facility] GC & CHLAMYDIA AMPLIFIED 2022-08-19 19:57:00 Christiano [facility] POCT MOLECULAR FLU 2022-08-19 19:36:00 Unknown, Attending [facility] POCT SARS-COV-2 ANTIGEN 2022-08-19 19:33:00 Christiano [facility] ([facility]) [facility] POCT MOLECULAR STREP 2022-08-19 19:16:00 Unknown, Attending [facility] POCT MOLECULAR STREP 2022-06-02 17:25:00 Unknown, Attending [facility] XR CHEST 2 VW 2022-05-04 01:26:00 Olaf [facility] RAPID STREP SCREEN FOR 2022-05-04 01:21:00 Tracy Babin [facility] GROUP A Medical Branch CONSENT/REFUSAL FOR 2022-05-04 00:54:30 Doctor Unassigned, [facility] DIAGNOSIS AND TREATMENT [facility] [place] POCT SARS-COV-2 ANTIGEN 2022-04-26 15:04:00 Sathya Vasquez [facility] ([facility]) [facility] POCT MOLECULAR FLU 2022-04-26 14:58:00 Unknown, Attending [facility] POCT MOLECULAR STREP 2022-04-26 14:56:00 Unknown, Attending [facility] POCT MOLECULAR STREP 2022-04-12 19:25:00 Unknown, Attending [facility] ASSIGNMENT OF BENEFITS 2022-04-12 19:01:07 Doctor Unassigned, Un [facility] POCT MOLECULAR STREP 2021-12-18 16:01:00 Unknown, Attending [facility] POCT MOLECULAR FLU 2021-12-14 14:42:00 Unknown, Attending [facility] POCT MOLECULAR STREP 2021-09-17 17:37:00 Stevie Gregg [facility] COVID-19 (MOLECULAR 2021-09-17 17:35:00 [facility] NUCLEIC ACID AMPLIFICATION) LAB ONLY COVID 2021-09-17 17:35:00 Stevie Gregg [facility] [place] INTERPRETATION [facility] POCT MOLECULAR STREP 2021-08-23 14:59:00 Nora Barrera [facility] Encounters Start End Encounter Admission Attending Care Care Encounter Source Date/Time Date/Time Type Type Clinicians Facility Department ID 2022-08-19 2022-08-19 Outpatient R CHRISTIANO [facility] [id number] Univers 14:00:00 15:03:11 [place] [facility] 2022-08-19 2022-08-19 Urgent [place] [facility] 1.2.840.114 [id number] Univers 14:00:00 15:03:11 Care Unknown, Attending HEALTH 350.1.13.10 ity of [place] 4.2.7.2.686 Jayson as LILIANA?BLEA [id number] [address] MEDICAL OFFICE [facility] 2022-07-20 2022-07-20 Urgent Sathya Vasquez [facility] 1.2.840.114 [id number] Univers 10:40:00 11:00:00 Care Unknown, Attending HEALTH 350.1.13.10 ity of [place] 4.2.7.2.686 Jayson as LILIANA?BLEA [id number] [address] MEDICAL OFFICE [facility] 2022-07-20 2022-07-20 Outpatient R PEDRO [facility] [id number] Univers 10:40:00 10:40:00 [facility] 2022-07-20 2022-07-20 [facility] 1.2.840.114 [id number] Univers 00:00:00 00:00:00 (Out) Ranar HEALTH 350.1.13.10 it y of [facility] [id number] Jayson as LILIANA?BLEA [id number] [address] MEDICAL OFFICE BUILDING 2022-07-12 2022-07-12 Letter STEVIE Graff 1.2.840.114 [id number] Univers 00:00:00 00:00:00 (Out) Cami HALLE 350.1.13.10 it y of [facility] [id number] Jayson as [id number] [address] 2022-07-11 2022-07-11 [facility] [id number] Univers 10:40:00 11:16:25 [facility] 2022-07-11 2022-07-11 Nora Villanueva [facility] 1.2.840.114 [id number] Univers 10:40:00 11:16:25 Care Unknown, [facility] HEALTH 350.1.13.10 ity of [place] 4.2.7.2.686 Jayson as LILIANA?BLEA [id number] [address] MEDICAL OFFICE [facility] 2022-07-11 2022-07-11 [facility] 1.2.840.114 [id number] Univers 00:00:00 00:00:00 [facility] 350.1.13.10 it y of [place] 4.2.7.2.686 Jayson as LILIANA?BLEA [id number] [address] MEDICAL OFFICE [facility] 2022-06-29 2022-06-29 Outpatient R DANA [facility] [id number] Univers 11:15:00 11:15:00 DON [facility] 2022-06-02 2022-06-02 Outpatient R PEDRO [facility] [id number] Univers 12:00:00 12:53:47 [facility] 2022-06-02 2022-06-02 Urgent EbrahimSathya [facility] 1.2.840.114 [id number] Univers 12:00:00 12:20:00 Care Unknown, Attending HEALTH 350.1.13.10 ity of [place] 4.2.7.2.686 Jayson as LILIANA?BLEA [id number] [address] MEDICAL OFFICE [facility] 2022-06-01 2022-06-01 Outpatient R DANA [facility] [id number] Univers 09:30:00 09:39:26 DON ity [facility] 2022-06-01 2022-06-01 Office [facility] [id number] Univers 09:30:00 09:39:26 Visit Don A Landen 350.1.13.10 ity of [facility] 4.2.7.2.686 Jayson as BANK [id number] [facility] BLDG. [address] [place] 2022-05-10 2022-05-10 Urgent Ebludmila, Sathya [facility] 1.2.840.114 [id number] Univers 14:45:00 15:05:00 Care Unknown, Attending HEALTH 350.1.13.10 ity of [place] 4.2.7.2.686 Jayson as LILIANA?BLEA [id number] [address] MEDICAL OFFICE [facility] 2022-05-10 2022-05-10 Outpatient R SHERIELUDMILA, [facility] [id number] Univers 14:45:00 14:45:00 [facility] 2022-05-10 2022-05-10 Letter Sonitxalicia, [facility] 1.2.840.114 [id number] Univers 00:00:00 00:00:00 (Out) [facility] 350.1.13.10 it y of [facility] 4.2.7.2.686 Jayson as LILIANA?BLEA [id number] [address] MEDICAL OFFICE BUILDING 2022-05-03 2022-05-03 Emergency X BABIN, [facility] ERT [id number] Univers 20:02:00 21:35:00 TRACY ity [facility] 2022-05-03 2022-05-03 Emergency [facility] [id number] Univers 20:02:00 21:35:00 Tracy MELONIE 350.1.13.10 i ty of [place] [id number] [address] 2022-04-30 2022-04-30 Letter [facility] 1.2.840.114 [id number] Univers 00:00:00 00:00:00 (Out) [facility] 350.1.13.10 it y of [place] 4.2.7.2.686 Jayson as LILIANA?BLEA [id number] [address] MEDICAL OFFICE [facility] 2022-04-26 2022-04-26 [facility] 1.2.840.114 [id number] Univers 09:40:00 10:00:00 Care Unknown, Attending [facility] 350.1.13.10 ity of [place] 4.2.7.2.686 Jayson as LILIANA?BLEA [id number] [address] OFFICE [facility] 2022-04-26 2022-04-26 Outpatient R PEDRO [facility] [id number] Univers 09:40:00 09:40:00 SATHYA itlanden [facility] 2022-04-12 2022-04-12 Urgent Ebtxalicia [facility] 1.2.840.114 [id number] Univers 12:40:00 13:00:00 Care Unknown, [place] [id number] ity [facility] 4.2.7.2.686 Jayson as LILIANA?BLEA [id number] [address] MEDICAL OFFICE [facility] 2022-04-12 2022-04-12 Outpatient R PEDRO [facility] [id number] Univers 12:40:00 12:40:00 SATHYA [facility] 2022-04-12 2022-04-12 Orders Doctor HUBBARD 1.2.840.114 [id number] Univers 00:00:00 00:00:00 Only Unassigned, HAL[place] 350.1.13.10 ity of [place] [facility] 4.2.7.2.686 Jayson as [id number] [address] 2022-04-12 2022-04-12 [facility] 1.2.840.114 [id number] Univers 00:00:00 00:00:00 (Out) [facility] 350.1.13.10 it y of [facility] 4.2.7.2.686 Jayson as LILIANA?BLEA [id number] [address] MEDICAL OFFICE [facility] 2022-01-16 2022-01-16 [facility] [id number] Univers 15:15:00 15:15:00 MARIMAR ity [facility] 2021-12-18 2021-12-18 [facility] [id number] Univers 09:20:00 10:35:00 NORA whitley [facility] 2021-12-18 2021-12-18 Urgent Nora Barrera [facility] 1.2.840.114 [id number] Univers 09:20:00 10:35:00 Care Unknown, Attending HEALTH 350..13.10 ity of [place] 4.2.7.2.686 Jayson as LILIANA?BLEA [id number] [address] 2021-12-18 2021-12-18 [facility] 1.2.840.114 [id number] Univers 00:00:00 00:00:00 (Out) [facility] 350.1.13.10 it y of [facility] 4.2.7.2.686 Jayson as LILIANA?BLEA [id number] [address] OFFICE [facility] 2021-12-14 2021-12-14 [facility]patient [facility] [id number] Univers 09:20:00 10:05:42 MITALI courtney [facility] 2021-12-14 2021-12-14 Mitali Huynh [facility] 1.2.840 .114 [id number] Univers 09:20:00 09:40:00 Care Unknown, Attending HEALTH 350..13.10 ity of [facility] 4.2.7.2.686 Jayson as LILIANA?BLEA [id number] [address] MEDICAL OFFICE [facility] 2021-12-14 2021-12-14 Letter [facility] [id number] Univers 00:00:00 00:00:00 (Out) [facility] 350.1.13.10 it y of Urgent Care [facility] 4.2.7.2.686 [place] LILIANA?BLEA [id number] [address] OFFICE [facility] 2021-09-18 2021-09-18 Letter STEVIE Zacarias 1.2.840.114 [id number] Univers 00:00:00 00:00:00 (Out) Devorah NERI 350.1.13.10 it y of HOSPITAL 4.2.7.2.686 Jayson as [id number] [address] 2021-09-17 2021-09-17 [facility]patient [facility] [id number] Univers 12:20:00 13:28:37 [facility] 2021-09-17 2021-09-17 [facility] 1.2.840.11 [id number] Univers 12:20:00 13:28:37 Care Marysol [facility] 350.1.13.10 ity of [place] 4.2.7.2.686 Jayson as LILIANA?BLEA [id number] [address] OFFICE [facility] 2021-09-07 2021-09-07 Urgent [facility] 1.2.840.114 [id number] Univers 12:00:00 12:20:00 Care Mitali [facility] 350.1.13.10 ity of [place] 4.2.7.2.686 Jayson as LILIANA?BLEA [id number] [address] 2021-09-07 2021-09-07 Outpatient R ALAN [facility] [id number] Univers 12:00:00 12:00:00 MITALI whitley o f [facility] 2021-08-23 2021-08-23 Outpatient R BRUCE [facility] [id number] Univers 09:40:00 10:09:29 NORA [facility] 2021-08-23 2021-08-23 Urgent [facility] 1.2.840.114 [id number] Univers 09:40:00 10:09:29 Care [facility] 350.1.13.10 it y of [place] 4.2.7.2.686 Jayson as LILIANA?BLEA [id number] [address] MEDICAL OFFICE [facility] 2021-08-23 2021-08-23 Outpatient R BRUCE [facility] [id number] Univers 09:40:00 10:09:29 NORA [facility] 2021-05-14 2021-05-14 Outpatient [facility] [id number] Univers 16:00:00 16:04:22 [place] [facility] 2021-05-14 2021-05-14 Urgent [facility] 1.2.840.114 [id number] Univers 16:00:00 16:04:22 Care [facility] 350.1.13.10 it y of [place] 4.2.7.2.686 Jayson as LILIANA?BLEA [phone] [address] MEDICAL OFFICE [facility] 2021-04-29 2021-04-29 Outpatient R MARYSOL [facility] [id number] Univers 09:00:00 09:14:21 STEVIE [facility] 2021-04-29 2021-04-29 Orders Doctor STEVIE 1.2.840.114 [id number] Univers 00:00:00 00:00:00 Only Unassigned, HALLE 350.1.13.10 ity of [place] [facility] 4.2.7.2.686 Jayson as [phone] [address] 2021-02-26 2021-02-26 [facility] [id number] Univers 22:03:00 22:10:00 [facility] 2021-02-26 2021-02-26 Emergency Pedro [facility] 1.2.840.114 [id number] Univers 22:03:00 22:10:00 Sathya WILHELM 350.1.13.10 i ty [facility] [place] [phone] [facility] [address] 2021-02-20 2021-02-20 Laboratory Only, Ang Db Test [facility] 1.2.8 40.114 [id number] Univers 12:45:00 13:00:00 Only Farrukh Hyman 350.1.13.10 ity of [facility] 4.2.7.2.686 Jayson as LILIANA?BLEA [phone] [address] MEDICAL OFFICE [facility] 2021-02-20 2021-02-20 [facility] [id number] Univers 12:45:00 12:45:00 FARRUKH bustoslanden o f [facility] 2021-02-20 2021-02-20 Orders Doctor HUBBARD 1.2.840.114 [id number] Univers 00:00:00 00:00:00 Only Unassigned, HALLE 350.1.13.10 [place] [facility] 4.2.7.2.686 Jayson as [phone] [facility] [address] [place] 2021-02-17 2021-02-17 Letter STEVIE Zacarias 1.2.840.114 [id number] Univers 00:00:00 00:00:00 (Out) Devorah NERI 350.1.13.10 it y of [facility] 4.2.7.2.686 Jayson as [phone] [facility] [address] [place] 2021-02-15 2021-02-15 Laboratory Only, Ang Db Test [facility] 1.2.8 40.114 [id number] Univers 16:15:00 16:30:00 Only Christiano Monroe [employer] 350.1.13.10 ity of [facility] 4.2.7.2.686 Jayson as LILIANA?BLEA [phone] [address] OFFICE [facility] 2021-02-15 2021-02-15 Outpatient R CHRISTIANO [facility] [id number] Univers 16:15:00 16:15:00 MONROE ity [facility] 2020-05-25 2020-05-25 Outpatient R WILIAM [facility] [id number] Univers 16:00:00 16:07:24 LEA ity [facility] 2020-05-25 2020-05-25 Outpatient R WILIAM, [facility] [id number] Univers 16:00:00 16:00:00 LEA ity [facility] 2020-05-04 2020-05-04 [facility] [id number] Univers 16:10:00 15:56:54 LEA ity [facility] 2020-03-19 2020-03-19 STEVIE Guido 1.2.840.114 [id number] Univers 00:00:00 00:00:00 (Out) Chin NERI 350.1.13.10 i ty [facility] 4.2.7.2.686 Jayson as [phone] [address] 2020-03-18 2020-03-18 Laboratory Lab, [facility] 1.2. 840.114 [id number] Univers 17:12:54 17:32:54 Only Mitali Lowery [facility] 350.1.13.10 ity [facility] 4.2.7.2.686 Ajyson as Professio [phone] [address] Office [facility] 2020-03-18 2020-03-18 Outpatient R [facility] [id number] Univers 17:20:00 17:20:00 ity [facility] 2020-03-18 2020-03-18 Outpatient R [facility] [id number] Univers 17:20:00 17:20:00 ity [facility] 2020-03-13 2020-03-13 STEVIE Guido 1.2.840.114 [id number] Univers 00:00:00 00:00:00 (Out) Chin NERI 350.1.13.10 i ty [facility] 4.2.7.2.686 Jayson as [phone] [address] 2020-03-11 2020-03-11 [facility] [id number] Univers 15:40:00 15:40:00 AREN ity [facility] 2020-03-11 2020-03-11 Laboratory Lab, [facility] 1.2. 840.114 [id number] Univers 15:06:51 15:26:51 Only Aren Shabazz [facility] 350.1.13.10 ity of [place] 4.2.7.2.686 Jayson as Professio [phone] Nh dical nal [address] [place] [address] [facility] 2020-02-15 2020-02-15 Letter Deann, STEVIE 1.2.840.114 [id number] Univers 00:00:00 00:00:00 (Out) Devorah Belle HALLE 350.1.13.10 it y of [facility] 4.2.7.2.686 Jayson as [phone] [facility] [address] [place] 2020-02-14 2020-02-14 Nurse Nurse, [facility] 1.2.840.114 [id number] Univers 15:41:47 15:56:47 Visit Unknown, Attending [place] 350.1.13.10 ity of Pediatric [place].2.7.2.686 [place] [phone] [facility] [address] [place] 2020-02-14 2020-02-14 Outpatient R NORMA, [facility] [id number] Univers 15:45:00 15:45:00 ATTENDING [facility] 2019-05-13 2019-05-13 Outpatient R PAYTON, [facility] [id number] Univers 13:40:00 13:40:00 TACHO [facility] 2019-05-11 2019-05-11 Telephone [facility] 1.2.596.778 [id number] Univers 00:00:00 00:00:00 Lolly Wilhelm 350.1.13.10 i ty of [place] [phone] [facility] 179 [facility] 2019-05-11 2019-05-11 Telephone [facility] 1.2.822.542 [id number] 00:00:00 00:00:00 Lolly Anastasiya Melonie 350.1.13.10 [place] 4.2.7.2.686 Professio [phone] formerly [facility] 179 [facility] 2019-05-06 2019-05-06 Orders Doctor HUBBARD 1.2.840.114 [id number] Univers 00:00:00 00:00:00 Only Unassigned, HALLE 350.1.13.10 it[place] of [place] [facility] 4.2.7.2.686 Jayson as [phone] [address] 2019-05-06 2019-05-06 Orders Doctor STEVIE 1.2.840.114 [id number] 00:00:00 00:00:00 Only Unassigned, HALLE 350.1.13.10 [place] [facility] 4.2.7.2.686 [phone] [facility] 2019-05-04 2019-05-04 Ancillary Michelle, Lolly Langford [facility] 1.2.840. 114 [id number] [facility] 14:51:49 16:20:27 Visit Tacho Cain 350.1.13.10 ity of [place] [phone] [address] 2019-05-04 2019-05-04 Ancillary DUANE Michelle 1.2.203.572 [id number] 14:51:49 16:20:27 Visit Lolly Wilhelm 350.1.13.10 [place] 4.2.7.2.686 Professio [phone] [address] 2019-04-23 2019-04-23 Ancillary Michelle, Lolly Langford [facility] 1.2.840. 114 [id number] [facility] 14:16:23 16:08:45 Visit Tacho Cain 350.1.13.10 ity of [place] [phone] Nh dic[address] 2019-04-23 2019-04-23 Ancillary Miguel Angel MSELVA 1.2.681.650 [id number] 14:16:23 16:08:45 Visit Lolly Wilhelm 350.1.13.10 [place] 4.2.7.2.686 Professio [phone] [address] 2019-04-22 2019-04-22 Ancillary Guerline Navarrete [facility] 1.2.840 .114 [id number] [facility] 14:24:40 15:14:05 Visit Cain, Tacho L [place] 350.1.13.10 ity of [place] [phone] Me dical nal 179 [facility] 2019-04-22 2019-04-22 Ancillary Landon [facility] 1.2.450.970 [id number] 14:24:40 15:14:05 Visit Guerline Howell Melonie 350.1.13.10 [place] 4.2.7.2.686 Professio [phone] [facility] 179 [facility] 2019-04-16 2019-04-16 [facility] [id number] [facility] 15:20:00 15:20:00 TACHO ity [facility] 2019-04-14 2019-04-14 Ancillary Lolly Michelle [facility] 1.2.840. 114 [id number] [facility] 16:16:46 16:56:46 Visit Tacho Cain 350.1.13.10 ity of [place].2.[place] [phone] Nh dical nal 179 [facility] 2019-04-14 2019-04-14 Ancillary Miguel Angel [facility] 1.2.970.502 [id number] 16:16:46 16:56:46 Visit Lolly Langford Melonie 350.1.13.10 [place] 4.2.7.2.686 Professio [phone] [facility] 179 [facility] 2019-04-09 2019-04-09 Ancillary Guerline Navarrete [facility] 1.2.840 .114 [id number] [facility] 16:19:26 17:01:53 Visit Tacho Cain Melonie 350.1.13.10 ity of [place] [phone] Me dical nal 179 [facility] 2019-04-09 2019-04-09 [facility] 1.2.815.628 [id number] 16:19:26 17:01:53 Visit Guerline Howell Melonie 350.1.13.10 [place] 4.2.7.2.686 Professio [phone] [facility] 179 [facility] 2019-04-09 2019-04-09 [facility] [id number] [facility] 16:20:00 16:20:00 TACHO ity of [facility] 2019-03-31 2019-03-31 Ancillary Lolly Michelle [facility] 1.2.840. 114 [id number] [facility] 08:04:37 15:11:26 Visit Tacho Cain [place] 350.1.13.10 ity of [place] [phone] Nh dical [address] 2019-03-31 2019-03-31 Ancillary Miguel Angel [facility] 1.2.449.512 [id number] 08:04:37 15:11:26 Visit Lolly Langford Melonie 350.1.13.10 [place] 4.2.7.2.686 Professio [phone] [address] 2019-03-31 2019-03-31 Orders Doctor HUBBARD 1.2.840.114 [id number] 00:00:00 00:00:00 Only Unassigned, HALLE 350.1.13.10 [place] [facility] 4.2.7.2.686 [phone] 009 2019-03-31 2019-03-31 Orders Doctor STEVIE 1.2.840.114 [id number] Univers 00:00:00 00:00:00 Only Unassigned, HALLE 350.1.13.10 ity of [place] [facility] 4.2.7.2.686 Jayson as [phone] [address] 2018-08-28 2018-08-28 Orders Doctor STEVIE Olivarez.2.840.114 [id number] 00:00:00 00:00:00 Only Unassigned, HALLE 350.1.13.10 [place] [facility] 4.2.7.2.686 [id number] 009 2018-08-28 2018-08-28 Orders Doctor STEVIE Olivarez.2.840.114 [id number] Univers 00:00:00 00:00:00 Only Unassigned, HALLE 350.1.13.10 ity of [place] [facility] 4.2.7.2.686 Jayson as [phone] [address] Results Test Description Test Time Test Comments Results Result Comments Source POCT MOLECULAR FLU 2022-08-19 19:48:00 Test Item Value Reference Range Interpretation Comme nts POCT Molecular FluA (test code = 70147-4) Negative Negative POCT Molecular FluB (test code = 10629-3) Negative Negative Lab Interpretation (test code = 96908-2) Normal [facility] MOLECULAR [id number] 19:48:00 Test Item Value Reference Range Interpretation Comments POCT Molecular FluA (test code = Negative Negative 70316-4) POCT Molecular FluB (test code = Negative Negative 91289-0) Lab Interpretation (test code = Normal 64703-3) [facility] MOLECULAR [id number] 19:48:00 Test Item Value Reference Range Interpretation Comments POCT Molecular FluA (test code = Negative Negative 51352-4) POCT Molecular FluB (test code = Negative Negative 99405-2) Lab Interpretation (test code = Normal 96174-7) [facility] MOLECULAR [id number] 19:48:00 Test Item Value Reference Range Interpretation Comments POCT Molecular FluA (test code = Negative Negative 13500-6) POCT Molecular FluB (test code = Negative Negative 95568-0) Lab Interpretation (test code = Normal 34306-1) [facility] MOLECULAR [id number] 19:48:00 Test Item Value Reference Range Interpretation Comments POCT Molecular FluA (test code = Negative Negative 88018-4) POCT Molecular FluB (test code = Negative Negative 80976-6) Lab Interpretation (test code = Normal 28841-5) [facility] SARS-COV-2 ANTIGEN (BINAX NOW)2022-08-19 19:33:00 Test Item Value Reference Range Interpretation Comments POCT SARS-COV-2 ANTIGEN (test Not Detected Not Detected code = 04529-3) On board controls acceptable Yes with C Line (test code = 3574) Lab Interpretation (test code = Normal 69551-2) [facility] SARS-COV-2 ANTIGEN (BINAX NOW)2022-08-19 19:33:00 Test Item Value Reference Range Interpretation Comments POCT SARS-COV-2 ANTIGEN (test Not Detected Not Detected code = 48086-1) On board controls acceptable Yes with C Line (test code = 3574) Lab Interpretation (test code = Normal 87826-1) [facility] SARS-COV-2 ANTIGEN (BINAX NOW)2022-08-19 19:33:00 Test Item Value Reference Range Interpretation Comments POCT SARS-COV-2 ANTIGEN (test Not Detected Not Detected code = 18901-8) On board controls acceptable Yes with C Line (test code = 3574) Lab Interpretation (test code = Normal 68297-1) [facility] SARS-COV-2 ANTIGEN (BINAX NOW)2022-08-19 19:33:00 Test Item Value Reference Range Interpretation Comments POCT SARS-COV-2 ANTIGEN (test Not Detected Not Detected code = 18128-9) On board controls acceptable Yes with C Line (test code = 3574) Lab Interpretation (test code = Normal 73360-6) [facility] SARS-COV-2 ANTIGEN (BINAX NOW)2022-08-19 19:33:00 Test Item Value Reference Range Interpretation Comments POCT SARS-COV-2 ANTIGEN (test Not Detected Not Detected code = 06536-4) On board controls acceptable Yes with C Line (test code = 3574) Lab Interpretation (test code = Normal 10942-8) [facility] MOLECULAR [id number] 19:24:19 Test Item Value Reference Range Interpretation Comments POCT Molecular Strep (test code = Negative Negative 09717-2) Lab Interpretation (test code = Normal 88422-5) [facility] MOLECULAR [id number] 19:24:19 Test Item Value Reference Range Interpretation Comments POCT Molecular Strep (test code = Negative Negative 79943-1) Lab Interpretation (test code = Normal 05523-9) [facility] MOLECULAR [id number] 19:24:19 Test Item Value Reference Range Interpretation Comments POCT Molecular Strep (test code = Negative Negative 18395-8) Lab Interpretation (test code = Normal 62297-2) [facility] MOLECULAR [id number] 19:24:19 Test Item Value Reference Range Interpretation Comments POCT Molecular Strep (test code = Negative Negative 10332-5) Lab Interpretation (test code = Normal 02280-7) [facility] MOLECULAR [id number] 19:24:19 Test Item Value Reference Range Interpretation Comments POCT Molecular Strep (test code = Negative Negative 62116-3) Lab Interpretation (test code = Normal 22976-2) [facility] MOLECULAR [id number] 17:32:56 Test Item Value Reference Range Interpretation Comments POCT Molecular Strep (test code = Negative Negative 60595-0) Lab Interpretation (test code = Normal 93830-7) [facility] MOLECULAR [id number] 15:09:53 Test Item Value Reference Range Interpretation Comments POCT Molecular FluA (test code = Negative Negative 48089-7) POCT Molecular FluB (test code = Negative Negative 98160-1) Lab Interpretation (test code = Normal 09937-6) [facility] MOLECULAR [id number] 15:04:19 Test Item Value Reference Range Interpretation Comments POCT Molecular Strep (test code = Negative Negative 89563-7) Lab Interpretation (test code = Normal 32953-6) [facility] SARS-COV-2 ANTIGEN (BINAX NOW)2022-04-26 15:04:00 Test Item Value Reference Range Interpretation Comments POCT SARS-COV-2 ANTIGEN (test code = Positive Not Detected A 03963-9) On board controls acceptable with C Yes Line (test code = 3574) Lab Interpretation (test code = Abnormal 55719-7) [facility] MOLECULAR [id number] 19:30:25 Test Item Value Reference Range Interpretation Comments POCT Molecular Strep (test code = Positive Negative A 26380-7) Lab Interpretation (test code = Abnormal 32849-3) [facility] MOLECULAR [id number] 16:10:06 Test Item Value Reference Range Interpretation Comments POCT Molecular Strep (test code = Negative Negative 73712-6) Lab Interpretation (test code = Normal 53147-5) [facility] MOLECULAR [id number] 14:45:48 Test Item Value Reference Range Interpretation Comments POCT Molecular FluA (test code = Positive Negative A 32446-8) Lab Interpretation (test code = Abnormal 53917-3) [facility] MOLECULAR [id number] 17:48:29 Test Item Value Reference Range Interpretation Comments POCT Molecular Strep (test code = Negative Negative 52684-7) Lab Interpretation (test code = Normal 24800-7) [facility] [id number] 15:04:52 Test Item Value Reference Range Interpretation Comments POCT Molecular Strep (test code = Positive Negative A 55496-6) Lab Interpretation (test code = Abnormal 53421-5) [facility]
[2022-08-28] MEDS ORDERED: dexAMETHasone 10 MG/ML VIAL ONE (15:11)
--- NOTE | 2022-08-28 15:45 | RAD REPORT ---
EXAM DESCRIPTION: RAD - Chest Pa And Lat (2 Views) - 08/28/2022 3:31 pm CLINICAL HISTORY: HEMOPTYSIS Chest pain. COMPARISON: <Comparisons> FINDINGS: The lungs are clear. The heart is normal in size. No displaced fractures. IMPRESSION: No acute or concerning finding suspected.
--- NOTE | 2022-08-28 16:09 | EDPHYS ---
Physician Documentation [facility] Name: Cliff Kang Age: 22 yrs Sex: Male : 2000 Arrival Date: 08/28/2022 Time: 14:26 Bed 12 Private MD: ED Physician Mejia Dai HPI: 08/28 14:50 This 22 yrs old Male presents to ER via Ambulatory with complaints of Sore sb4 Throat, bloody mucus. 14:50 22 year old male with recurrent strep throat states that he has been coughing up blood sb4 clots and mucus since this morning. he was seen here on the 14 for sore throat and had a negative mono test that had not resulted prior to discharge and was sent home with amoxicillin. he was seen here on the 15 for cellulitus/folliculitis and prescribed another antibiotic- doxycycline. He states the medications have made him vomit and cannot hold them down. Historical: - Allergies: 14:35 Tessalon Perles (Anxiety); aa5 - PMHx: 14:35 ADD/ADHD; Asthma; Depression; mood disorder; aa5 - PSHx: 14:35 Left ACL Repair; aa5 - Immunization history:: Adult Immunizations unknown. - Social history:: Smoking status: Patient denies any tobacco usage or history of. ROS: 14:50 Constitutional: Negative for fever, chills, and weight loss. sb4 14:50 ENT: Positive for sore throat. 14:50 Respiratory: Positive for hemoptysis. 14:50 Abdomen/GI: Positive for nausea and vomiting. 14:50 All other systems are negative. Exam: 14:50 Constitutional: This is a well developed, well nourished patient who is awake, alert, sb4 and in no acute distress. Head/Face: Normocephalic, atraumatic. Cardiovascular: Regular rate and rhythm with a normal S1 and S2. Respiratory: Lungs have equal breath sounds bilaterally, clear to auscultation and percussion. No rales, rhonchi or wheezes noted. No increased work of breathing, no retractions or nasal flaring. Abdomen/GI: Soft, non-tender, no distension. Skin: Warm, dry with normal turgor. Normal color with no rashes, no lesions, and no evidence of cellulitis. MS/ Extremity: Pulses equal, no cyanosis. Neurovascular intact. Full, normal range of motion. Neuro: Awake and alert, GCS 15, oriented to person, place, time, and situation. Cranial nerves II-XII grossly intact. Motor strength 5/5 in all extremities. Sensory grossly intact. Cerebellar exam normal. Normal gait. 14:50 ENT: Exam is negative for TM abnormalities, epistaxis, nasal discharge, sinus tenderness, Posterior pharynx: Tonsils: bilaterally enlarged, with erythema. Vital Signs: 14:30 BP 142 / 93; Pulse 99; Resp 18 S; Temp 98.5(O); Pulse Ox 99% on R/A; Weight 79.38 kg aa5 (R); Height 5 ft. 5 in. (R); 16:10 BP 138 / 69; Pulse 79; Resp 16; Pulse Ox 98% ; iw 14:30 Body Mass Index 29.12 (79.38 kg, 165.1 cm) aa5 MDM: 14:35 Patient medically screened. sb4 14:50 Differential diagnosis: bronchitis, delfina-sofia virus, chlamydia pharyngitis, sb4 neisseria gonorrheoeae pharangitis, tonsillitis, upper respiratory infection, viral syndrome. 16:09 Data reviewed: vital signs, nurses notes, radiologic studies, plain films, and as a sb4 result, I will discharge patient. Counseling: I had a detailed discussion with the patient and/or guardian regarding: the historical points, exam findings, and any diagnostic results supporting the discharge/admit diagnosis, lab results, radiology results, the need for outpatient follow up, an ENT specialist, to return to the emergency department if symptoms worsen or persist or if there are any questions or concerns that arise at home, smoking cessation. 08/28 14:48 Order name: Chest Pa And Lat (2 Views) XRAY; Complete Time: 15:46 sb4 Administered Medications: 15:06 Drug: Dexamethasone IM 10 mg Route: IM; Site: right deltoid; ko1 16:20 Follow up: Response: No adverse reaction; Pain is decreased iw Disposition: 17:18 Co-signature as Attending Physician, Mejia Dai MD I reviewed the patient's care rn provided by the Advanced Practice Provider and agree with the diagnosis and treatment plan. Disposition Summary: 08/28/22 16:09 Discharge Ordered Location: Home sb4 Problem: an ongoing problem sb4 Symptoms: are unchanged sb4 Condition: Stable sb4 Diagnosis - Infectious mononucleosis, unspecified without complication sb4 Followup: sb4 - With: - When: 2 - 3 days - Reason: Recheck today's complaints, Continuance of care, Re-evaluation by your physician Discharge Instructions: - Discharge Summary Sheet sb4 - Antibiotic Resistance sb4 - Infectious Mononucleosis sb4 - Hemoptysis, Uupx-zf-Haaw sb4 Forms: - Medication Reconciliation Form sb4 - Thank You Letter sb4 - Antibiotic Education sb4 - Prescription Opioid Use sb4 - Patient Portal Instructions sb4 Signatures: Dispatcher [employer] EDMS Mejia Dai MD MD rn Calderon, Audri RN RN aa5 Akiko Hamilton RN RN Nannette Palomino, PARamesh PARamesh sb4 Rosalba Alves RN iw
--- NOTE | 2022-08-28 16:09 | ER ---
Nurse's Notes [facility] Name: Cliff Kang Age: 22 yrs Sex: Male : 2000 Arrival Date: 08/28/2022 Time: 14:26 Bed 12 Private MD: Diagnosis: Infectious mononucleosis, unspecified without complication Presentation: 08/28 14:30 Chief complaint: Patient states: seen here 08/24/22 diagnosed with acute tonsillitis and aa5 prescribed oral antibiotics, pt states "I need my tonsils out and I can't keep my antibiotics down because they make me sick to my stomach", pt reports vomiting x 2 days. Pt states "now I am coughing up blood". 14:30 Coronavirus screen: sore throat. Ebola Screen: Patient denies travel to an [facility] Ebola-affected area in the 21 days before illness onset. Initial Sepsis Screen: Does the patient meet any 2 criteria? No. Patient's initial sepsis screen is negative. Does the patient have a suspected source of infection? Yes:. Risk Assessment: Do you want to hurt yourself or someone else? Patient reports no desire to harm self or others. Onset of symptoms was August 2022. 14:30 Acuity: [facility]NA 4 aa5 14:30 Method Of Arrival: Ambulatory aa5 Historical: - Allergies: 14:35 Tessalon Perles (Anxiety); aa5 - PMHx: 14:35 ADD/ADHD; Asthma; Depression; mood disorder; aa5 - PSHx: 14:35 Left ACL Repair; aa5 - Immunization history:: Adult Immunizations unknown. - Social history:: Smoking status: Patient denies any tobacco usage or history of. Screenin:03 [facility] ED Fall Risk Assessment (Adult) History of falling in the last 3 months, ko1 including since admission No falls in past 3 months (0 pts) Confusion or Disorientation No (0 pts) Intoxicated or Sedated No (0 pts) Impaired Gait No (0 pts) Mobility Assist Device Used No (0 pt) Altered Elimination No (0 pt) Score/Fall Risk Level 0 - 2 = Low Risk Oriented to surroundings, Maintained a safe environment, Educated pt \\T\\ family on fall prevention, incl call for assistance when getting out of bed, Assessed \\T\\ reinforced patient's understanding of fall precautions, Provided non-skid footwear, Hourly rounding (assess needs \\T\\ fall precautionary measures) done, Used ambulatory aids as needed (educated on \\T\\ assisted with), Used gait belt as appropriate. Abuse screen: Denies threats or abuse. Denies injuries from another. Nutritional screening: No deficits noted. Tuberculosis screening: No symptoms or risk factors identified. Assessment: 15:03 General: Appears in no apparent distress. uncomfortable, Behavior is cooperative. Pain: ko1 Complains of pain in throat. Neuro: No deficits noted. Cardiovascular: No deficits noted. Respiratory: Airway is patent Respiratory effort is even, unlabored, Breath sounds are clear bilaterally. GI: No deficits noted. : No deficits noted. EENT: Throat is reddened. Derm: No deficits noted. Musculoskeletal: No deficits noted. 15:54 Reassessment: Patient appears in no apparent distress at this time. No changes from kc6 previously documented assessment. Patient and/or family updated on plan of care and expected duration. Pain level reassessed. Patient is alert, oriented x 3, equal unlabored respirations, skin warm/dry/pink. Vital Signs: 14:30 BP 142 / 93; Pulse 99; Resp 18 S; Temp 98.5(O); Pulse Ox 99% on R/A; Weight 79.38 kg aa5 (R); Height 5 ft. 5 in. (R); 16:10 BP 138 / 69; Pulse 79; Resp 16; Pulse Ox 98% ; iw 14:30 Body Mass Index 29.12 (79.38 kg, 165.1 cm) aa5 ED Course: 14:27 Patient arrived in ED. am2 14:30 Arm band placed on Patient placed in an exam room, on a stretcher. aa5 14:35 Akiko Hamilton, RN is Primary Nurse. ko1 14:35 Nannette Navarrete PA-C is PHCP. sb4 14:35 Mejia Dai MD is Attending Physician. sb4 14:39 Triage completed. aa5 15:03 Patient has correct armband on for positive identification. Bed in low position. Call ko1 light in reach. Provided Education on: NA. 15:16 Report received from Akiko Hamilton RN. kc6 15:32 Chest Pa And Lat (2 Views) XRAY In Process Unspecified. EDMS 16:09 Angela Brooks MD is Referral Physician. sb4 16:20 No provider procedures requiring assistance completed. Patient did not have IV access iw during this emergency room visit. Administered Medications: 15:06 Drug: Dexamethasone IM 10 mg Route: IM; Site: right deltoid; ko1 16:20 Follow up: Response: No adverse reaction; Pain is decreased iw Medication: 16:21 VIS not applicable for this client. iw Outcome: 16:09 Discharge ordered by . sb4 16:21 Discharged to home ambulatory. iw 16:21 Condition: good 16:21 Discharge instructions given to patient, Instructed on discharge instructions, follow up and referral plans. Demonstrated understanding of instructions, follow-up care. 16:21 Patient left the ED. iw Signatures: Dispatcher [employer] EDRosalba Smith RN RN iw Shania Boyle RN RN aa5 Nora Taveras Kaitlyn RN RN kc6 Akiko Hamilton RN RN ko1 Nannette Navarrete, PA-C PA-C sb4
[2022-08-28 16:31] VITALS: TEMP 98.5
[2022-08-28 16:32] VITALS: BP 138/69; O2SAT 98
== END 2022-08-28 16:21 | disposition home or self-care (01) ==
LOC: ER 14:26
DX: B27.90 Infectious mononucleosis, unspecified without complication (principal); R04.2 Hemoptysis
CPT/HCPCS: 71046; J1100

== ENCOUNTER → 2023-04-10 | Emergency (ER) | payer SELFPAY ==
[~2023-04-10] MED LIST: AZITHROMYCIN 250 MG TAB ONE; GUAIFENESIN/DM 5 ML UCUP ONE; PROMETHAZINE 25 MG TABLET ONE
--- OUTSIDE RECORDS SUMMARY | 2023-04-10 19:59 | XMS REPORT | Continuity of Care Document ---
Author Name Unknown Address [address] [facility]. 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 Phone ROBERT GUERIN Primary Care Physician Unavailab GISSEL Gee Attending Clinician Unavailable CAMPBELL BROWNE Attending Clinician Unavailable Campbell Riggs Attending Clinician [phone] Unknown, Attending Attending Clinician Unavailab OVI Wallace Attending Clinician Unavailable ROBERT GUERIN Attending Clinician Unavailable Ovi Stiles PA-C Attending Clinician [phone] MONROE LOYOLA Attending Clinician Unavailable Monroe Mo Attending Clinician [phone] Robert Amin Attending Clinician [phone] Lab, Ang - Db Attending Clinician Unavailable ELDA DOWNS Attending Clinician Unavailab Elda Smith DO Attending Clinician [phone] Sathya Sherwood Attending Clinician [phone] SATHYA VASQUEZ Attending Clinician Unavailable Cami Graff RN Attending Clinician Unavailable NORA BARRERA Attending Clinician Unavailable Nora Barrera MD Attending Clinician DON FINNEY Attending Clinician Unavailable Don Finney MD Attending Clinician [phone] TRACY BABIN Attending Clinician Unavailable Tracy Babin MD Attending Clinician [phone] Doctor Unassigned, [place] Attending Clinician U itzel FANTAMARIMAR Attending Clinician Unavailable MITALI LOWERY Attending Clinician Unavailab oh [place] [employer] Attending Clinician + [phone] Provider, [facility] Attending Clinician Unavailable Devorah Zacarias RN Attending Clinician Unavailab STEVIE Willoughby Attending Clinician Unavailable Shivani Damico Attending Clinician [phone] Stevie Gregg PA-C Attending Clinician [phone] Only, Ang Db Test Attending Clinician UnavailFarrukh Simmons Attending Clinician [phone] FARRUKH HYMAN Attending Clinician Unavailabl LEA Guido Attending Clinician Unavailable Chin Walton MD Attending Clinician [phone] Lab, Adc Fam Pob I Attending Clinician Unavailab AREN Solitario Attending Clinician Unavailable Aren Anguiano Attending Clinician [phone] Nurse, [facility] Attending Clinician Unavailable UNKNOWN, ATTENDING Attending Clinician Unavailab TACHO Gamboa Attending Clinician Unavailabelardo Michelle PT, Lolly Langford Attending Clinician Unavailab Tacho Gamboa MD Attending Clinician [phone] Guerline Navarrete PTA Attending Clinician Unavail able TRACY BABIN Admitting Clinician Unavailable Payers Payer Name Policy Type Policy Number Effective Date Expirati on Date Source Problems Condition Name Condition Details Condition Category Status Onset Date Resolution Date Last Treatment Date Treating Clinician Comments Source Acute cough Acute cough Disease Active 09-11 00:00: 00 [facility] Rupture of anterior cruciate ligament of left knee, initial encounter Rupture of anterior cruciate ligament of left knee, initial encounter Disease Active 2017-02 00:00: 00 Overview: Formattin g of this note might be different from the original. Added automatic ally from request for surgery [id number] [facility] Allergies, Adverse Reactions, Alerts Allergy Name Allergy Type Status Severity Reaction(s) Onset Date Inactive Date Treating Clinician Comments Source BENZONAT ATE DRUG INGREDI Active Anxiety 05-10 00:00: 00 [facility] Benzonat ate Propensi ty to adverse reaction s Active Anxiety 05-10 00:00: 00 [facility] NO KNOWN ALLERGIE S Drug Class Active [facility] Social History Social Habit Start Date Stop Date Quantity Comments Source Gender identity [facility] History of tobacco use Cigarette Smoker [facility] Alcohol intake 2022-10-18 00:00:00 2022-10-18 00:00:00 Current drinker of alcohol (finding) [facility] History of Social function 2022-09-11 00:00:00 2022-09-11 00:00:00 [facility] Exposure to SARS-CoV-2 (event) 2022-07-01 00:00:00 2022-07-11 10:50:00 Not sure [facility] Tobacco use and exposure 2022-04-12 00:00:00 2022-04-12 00:00:00 User of smokeless tobacco [facility] Cigarettes smoked current (pack per day) - Reported 2022-04-12 00:00:00 2022-04-12 00:00:00 [facility] Cigarette pack-years 2022-04-12 00:00:00 2022-04-12 00:00:00 [facility] Tobacco Comment 2022-04-12 00:00:00 2022-04-12 00:00:00 vape [facility] Alcohol Comment 2022-04-12 00:00:00 2022-04-12 00:00:00 ocassional [facility] Sex Assigned At 2000 00:00:00 2000 00:00:00 [facility] Smoking Status Start Date Stop Date Source Smokes tobacco daily 2022-04-12 00:00:00 [facility] Never smoked tobacco [facility] Medications Ordered Medication Name Filled Medication Name Start Date Stop Date Current Medication? Ordering Clinician Indication Dosage Frequency Signature (SIG) Comments Components Source ofloxacin 0.3 % otic drops 10-18 00:00: 00 11-18 04:59 :00 No [id number] 5[drp] Place 5 Drops in left ear at bedtime for 30 days. [facility] ofloxacin 0.3 % otic drops 10-18 00:00: 00 11-18 04:59 :00 No [id number] 5[drp] Place 5 Drops in left ear at bedtime for 30 days. [facility] ketorolac (TORADOL) injection 30 mg 09-30 23:45: 00 09-30 22:43 :00 No [id number] 30mg Unive rs [facility] ketorolac (TORADOL) injection 30 mg 09-30 23:45: 00 09-30 22:43 :00 No [id number] 30mg 30 mg, Intramuscu lar, ONCE, 1 dose, On 09/30/22 at 1845, Routine [facility] ketorolac (TORADOL) injection 30 mg 09-30 23:45: 00 09-30 22:43 :00 No [id number] 30mg Unive [facility] ketorolac (TORADOL) injection 30 mg 09-30 23:45: 00 09-30 22:43 :00 No [id number] 30mg 30 mg, Intramuscu lar, ONCE, 1 dose, On 09/30/22 at 1845, Routine [facility] ofloxacin 0.3 % otic drops 09-30 00:00: 00 10-11 04:59 :00 No [id number] 5[drp] Place 5 Drops in left ear in the morning and 5 Drops in the evening. Do all this for 10 days. [facility] ofloxacin 0.3 % otic drops 09-30 00:00: 00 10-11 04:59 :00 No [id number] 5[drp] Place 5 Drops in left ear in the morning and 5 Drops in the evening. Do all this for 10 days. [facility] azelastine 137 mcg (0.1 %) nasal spray 2022-0 8-15 00:00: 00 Yes [id number] 1{spray } Use 1 [place] in each nostril in the morning and 1 [place] in the evening. Use in each nostril as directed [facility] azelastine 137 mcg (0.1 %) nasal spray 2022-0 8-15 00:00: 00 Yes [id number] 1{spray } Use 1 [place] in each nostril in the morning and 1 [place] in the evening. Use in each nostril as directed [facility] azelastine 137 mcg (0.1 %) nasal spray 2022-0 8-15 00:00: 00 Yes [id number] 1{spray } Use 1 [place] in each nostril in the morning and 1 [place] in the evening. Use in each nostril as directed [facility] azelastine 137 mcg (0.1 %) nasal spray 2022-0 815 00:00: 00 Yes [id number] 1{spray } Use 1 [place] in each nostril in the morning and 1 [place] in the evening. Use in each nostril as directed [facility] azelastine 137 mcg (0.1 %) nasal spray 2022-0 815 00:00: 00 Yes [id number] 1{spray } Use 1 [place] in each nostril in the morning and 1 [place] in the evening. Use in each nostril as directed [facility] azelastine 137 mcg (0.1 %) nasal spray 2022-0 815 00:00: 00 Yes [id number] 1{spray } Use 1 [place] in each nostril in the morning and 1 [place] in the evening. Use in each nostril as directed [facility] azelastine 137 mcg (0.1 %) nasal spray 2022-0 8-15 00:00: 00 Yes [id number] 1{spray } Use 1 [place] in each nostril in the morning and 1 [place] in the evening. Use in each nostril as directed [facility] azelastine 137 mcg (0.1 %) nasal spray 8-15 00:00: 00 Yes [id number] 1{spray } Use 1 [place] in each nostril in the morning and 1 [place] in the evening. Use in each nostril as directed [facility] dexamethaso ne (DECADRON) injection 10 mg 09-17 19:17: 00 09-17 19:18 :00 No [id number] 10mg [facility] dexamethaso ne (DECADRON) injection 10 mg 09-17 19:17: 00 09-17 19:18 :00 No [id number] 10mg 10 mg, Intramuscu lar, ONCE, 1 dose, On Sat09/17/22 at 1430, Routine [facility] methylPREDN ISolone (MEDROL, SUKHI,) 4 mg tablets 09-17 00:00: 00 Yes [id number] follow package directions [facility] azithromyci n (ZITHROMAX Z-SUKHI) 250 mg tablet 0 09-17 00:00: 00 Yes [id number] Z pack as directed. [facility] methylPREDN ISolone (MEDROL, SUKHI,) 4 mg tablets 09-17 00:00: 00 Yes [id number] follow package directions [facility] azithromyci n (ZITHROMAX Z-SUKHI) 250 mg tablet 0 09-17 00:00: 00 Yes [id number] Z pack as directed. [facility] methylPREDN ISolone (MEDROL, SUKHI,) 4 mg tablets 0 09-17 00:00: 00 Yes [id number] follow package directions [facility] azithromyci n (ZITHROMAX Z-SUKHI) 250 mg tablet 0 09-17 00:00: 00 Yes [id number] Z pack as directed. [facility] methylPREDN ISolone (MEDROL, SUKHI,) 4 mg tablets 2022-0 8- 00:00: 00 Yes [id number] follow package directions [facility] azithromyci n (ZITHROMAX Z-SUKHI) 250 mg tablet 3-0 8-07 00:00: 00 Yes [id number] Z pack as directed. [facility] methylPREDN ISolone (MEDROL, SUKHI,) 4 mg tablets 2022-0 8- 00:00: 00 Yes [id number] follow package directions [facility] azithromyci n (ZITHROMAX Z-SUKHI) 250 mg tablet 3-0 8- 00:00: 00 Yes [id number] Z pack as directed. [facility] methylPREDN ISolone (MEDROL, SUKHI,) 4 mg tablets 2022-0 8- 00:00: 00 Yes [id number] follow package directions [facility] azithromyci n (ZITHROMAX Z-SUKHI) 250 mg tablet 3-0 8 00:00: 00 Yes [id number] Z pack as directed. [facility] methylPREDN ISolone (MEDROL, SUKHI,) 4 mg tablets 2022-0 8- 00:00: 00 Yes [id number] follow package directions [facility] azithromyci n (ZITHROMAX Z-SUKHI) 250 mg tablet 2022-0 8 00:00: 00 Yes [id number] Z pack as directed. [facility] methylPREDN ISolone (MEDROL, SUKHI,) 4 mg tablets 2022-0 8- 00:00: 00 Yes [id number] follow package directions [facility] azithromyci n (ZITHROMAX Z-SUKHI) 250 mg tablet 2022-0 8- 00:00: 00 Yes [id number] Z pack as directed. [facility] methylPREDN ISolone (MEDROL, SUKHI,) 4 mg tablets 3-0 8- 00:00: 00 Yes [id number] follow package directions [facility] azithromyci n (ZITHROMAX Z-SUKHI) 250 mg tablet 3-0 8- 00:00: 00 Yes [id number] Z pack as directed. [facility] methylPREDN ISolone (MEDROL, SUKHI,) 4 mg tablets 2022-0 8- 00:00: 00 Yes [id number] follow package directions [facility] azithromyci n (ZITHROMAX Z-SUKHI) 250 mg tablet 09-17 00:00: 00 Yes [id number] Z pack as directed. [facility] codeine-gua ifenesin 10-100 mg/5 mL oral solution 09-17 00:00: 00 09-23 04:59 :00 No 10mL Take 10 mL by mouth every 6 (six) hours as needed for Cough for up to 5 days. Indication s: cough [facility] codeine-gua ifenesin 10-100 mg/5 mL oral solution 09-17 00:00: 00 09-23 04:59 :00 No 10mL Take 10 mL by mouth every 6 (six) hours as needed for Cough for up to 5 days. Indication s: cough [facility] albuterol 90 mcg/actuati on inhaler 09-11 00:00: 00 Yes [id number] 2{puff} Inhale 2 Puffs every 6 (six) hours as needed for Wheezing or Shortness of Breath. [facility] cetirizine (ZYRTEC) 10 mg tablet 09-11 00:00: 00 Yes [id number] 10mg Take 1 tablet by mouth in the morning. [facility] Fluticasone -Salmeterol (ADVAIR DISKUS) 100-50 mcg/dose inhalation disk 09-11 00:00: 00 Yes [id number] 1{puff} Inhale 1 Puff every 12 (twelve) hours. [facility] albuterol 90 mcg/actuati on inhaler 09-11 00:00: 00 Yes [id number] 2{puff} Inhale 2 Puffs every 6 (six) hours as needed for Wheezing or Shortness of Breath. [facility] cetirizine (ZYRTEC) 10 mg tablet 09-11 00:00: 00 Yes [id number] 10mg Take 1 tablet by mouth in the morning. [facility] Fluticasone -Salmeterol (ADVAIR DISKUS) 100-50 mcg/dose inhalation disk 0 8 00:00: 00 Yes [id number] 1{puff} Inhale 1 Puff every 12 (twelve) hours. [facility] albuterol 90 mcg/actuati on inhaler 0 09-11 00:00: 00 Yes [id number] 2{puff} Inhale 2 Puffs every 6 (six) hours as needed for Wheezing or Shortness of Breath. [facility] cetirizine (ZYRTEC) 10 mg tablet 09-11 00:00: 00 Yes [id number] 10mg Take 1 tablet by mouth in the morning. [facility] Fluticasone -Salmeterol (ADVAIR DISKUS) 100-50 mcg/dose inhalation disk 09-11 00:00: 00 Yes [id number] 1{puff} Inhale 1 Puff every 12 (twelve) hours. [facility] albuterol 90 mcg/actuati on inhaler 09-11 00:00: 00 Yes [id number] 2{puff} Inhale 2 Puffs every 6 (six) hours as needed for Wheezing or Shortness of Breath. [facility] cetirizine (ZYRTEC) 10 mg tablet 09-11 00:00: 00 Yes [id number] 10mg Take 1 tablet by mouth in the morning. [facility] Fluticasone -Salmeterol (ADVAIR DISKUS) 100-50 mcg/dose inhalation disk 09-11 00:00: 00 Yes [id number] 1{puff} Inhale 1 Puff every 12 (twelve) hours. [facility] albuterol 90 mcg/actuati on inhaler 0 8 00:00: 00 Yes [id number] 2{puff} Inhale 2 Puffs every 6 (six) hours as needed for Wheezing or Shortness of Breath. [facility] cetirizine (ZYRTEC) 10 mg tablet 2022-0 8 00:00: 00 Yes [id number] 10mg Take 1 tablet by mouth in the morning. [facility] Fluticasone -Salmeterol (ADVAIR DISKUS) 100-50 mcg/dose inhalation disk 0 8- 00:00: 00 Yes [id number] 1{puff} Inhale 1 Puff every 12 (twelve) hours. [facility] mcg/actuati on inhaler 8 00:00: 00 Yes [id number] 2{puff} Inhale 2 Puffs every 6 (six) hours as needed for Wheezing or Shortness of Breath. [facility] cetirizine (ZYRTEC) 10 mg tablet 8 00:00: 00 Yes [id number] 10mg Take 1 tablet by mouth in the morning. [facility] Fluticasone -Salmeterol (ADVAIR DISKUS) 100-50 mcg/dose inhalation disk 09-11 00:00: 00 Yes [id number] 1{puff} Inhale 1 Puff every 12 (twelve) hours. [facility] albuterol 90 mcg/actuati on inhaler 09-11 00:00: 00 Yes [id number] 2{puff} Inhale 2 Puffs every 6 (six) hours as needed for Wheezing or Shortness of Breath. [facility] cetirizine (ZYRTEC) 10 mg tablet 09-11 00:00: 00 Yes [id number] 10mg Take 1 tablet by mouth in the morning. [facility] Fluticasone -Salmeterol (ADVAIR DISKUS) 100-50 mcg/dose inhalation disk 8- 00:00: 00 Yes [id number] 1{puff} Inhale 1 Puff every 12 (twelve) hours. [facility] albuterol 90 mcg/actuati on inhaler 8 00:00: 00 Yes [id number] 2{puff} Inhale 2 Puffs every 6 (six) hours as needed for Wheezing or Shortness of Breath. [facility] cetirizine (ZYRTEC) 10 mg tablet 8 00:00: 00 Yes [id number] 10mg Take 1 tablet by mouth in the morning. [facility] Fluticasone -Salmeterol (ADVAIR DISKUS) 100-50 mcg/dose inhalation disk 0 8 00:00: 00 Yes [id number] 1{puff} Inhale 1 Puff every 12 (twelve) hours. [facility] albuterol 90 mcg/actuati on inhaler 0 09-11 00:00: 00 Yes [id number] 2{puff} Inhale 2 Puffs every 6 (six) hours as needed for Wheezing or Shortness of Breath. [facility] cetirizine (ZYRTEC) 10 mg tablet 09-11 00:00: 00 Yes [id number] 10mg Take 1 tablet by mouth in the morning. [facility] Fluticasone -Salmeterol (ADVAIR DISKUS) 100-50 mcg/dose inhalation disk 09-11 00:00: 00 Yes [id number] 1{puff} Inhale 1 Puff every 12 (twelve) hours. [facility] albuterol 90 mcg/actuati on inhaler 09-11 00:00: 00 Yes [id number] 2{puff} Inhale 2 Puffs every 6 (six) hours as needed for Wheezing or Shortness of Breath. [facility] cetirizine (ZYRTEC) 10 mg tablet 09-11 00:00: 00 Yes [id number] 10mg Take 1 tablet by mouth in the morning. [facility] Fluticasone -Salmeterol (ADVAIR DISKUS) 100-50 mcg/dose inhalation disk 09-11 00:00: 00 Yes [id number] 1{puff} Inhale 1 Puff every 12 (twelve) hours. [facility] albuterol 90 mcg/actuati on inhaler 8 00:00: 00 Yes [id number] 2{puff} Inhale 2 Puffs every 6 (six) hours as needed for Wheezing or Shortness of Breath. [facility] cetirizine (ZYRTEC) 10 mg tablet 0 8 00:00: 00 Yes [id number] 10mg Take 1 tablet by mouth in the morning. [facility] Fluticasone -Salmeterol (ADVAIR DISKUS) 100-50 mcg/dose inhalation disk 8 00:00: 00 Yes [id number] 1{puff} Inhale 1 Puff every 12 (twelve) hours. [facility] albuterol 90 mcg/actuati on inhaler 0 09-11 00:00: 00 Yes [id number] 2{puff} Inhale 2 Puffs every 6 (six) hours as needed for Wheezing or Shortness of Breath. [facility] cetirizine (ZYRTEC) 10 mg tablet 09-11 00:00: 00 Yes [id number] 10mg Take 1 tablet by mouth in the morning. [facility] Fluticasone -Salmeterol (ADVAIR DISKUS) 100-50 mcg/dose inhalation disk 09-11 00:00: 00 Yes [id number] 1{puff} Inhale 1 Puff every 12 (twelve) hours. [facility] albuterol 90 mcg/actuati on inhaler 09-11 00:00: 00 Yes [id number] 2{puff} Inhale 2 Puffs every 6 (six) hours as needed for Wheezing or Shortness of Breath. [facility] cetirizine (ZYRTEC) 10 mg tablet 09-11 00:00: 00 Yes [id number] 10mg Take 1 tablet by mouth in the morning. [facility] Fluticasone -Salmeterol (ADVAIR DISKUS) 100-50 mcg/dose inhalation disk 0 09-11 00:00: 00 Yes [id number] 1{puff} Inhale 1 Puff every 12 (twelve) hours. [facility] albuterol 90 mcg/actuati on inhaler 0 8 00:00: 00 Yes [id number] 2{puff} Inhale 2 Puffs every 6 (six) hours as needed for Wheezing or Shortness of Breath. [facility] cetirizine (ZYRTEC) 10 mg tablet 09-11 00:00: 00 Yes [id number] 10mg Take 1 tablet by mouth in the morning. [facility] Fluticasone -Salmeterol (ADVAIR DISKUS) 100-50 mcg/dose inhalation disk 09-11 00:00: 00 Yes [id number] 1{puff} Inhale 1 Puff every 12 (twelve) hours. [facility] albuterol 90 mcg/actuati on inhaler 09-11 00:00: 00 Yes [id number] 2{puff} Inhale 2 Puffs every 6 (six) hours as needed for Wheezing or Shortness of Breath. [facility] cetirizine (ZYRTEC) 10 mg tablet 09-11 00:00: 00 Yes [id number] 10mg Take 1 tablet by mouth in the morning. [facility] Fluticasone -Salmeterol (ADVAIR DISKUS) 100-50 mcg/dose inhalation disk 09-11 00:00: 00 Yes [id number] 1{puff} Inhale 1 Puff every 12 (twelve) hours. [facility] ondansetron (ZOFRAN (PF)) injection 4 mg 09-04 18:45: 00 09-04 18:49 :00 No 4mg 4 mg, Slow IV Push, ONCE, 1 dose, On Sat09/04/22 at 1345, WILY [facility] NaCl 0.9% (NS) bolus infusion 500 mL 09-04 18:30: 00 09-04 20:07 :00 No 500mL at 999 mL/hr, 500 mL, IV Infusion, ONCE, 1 dose, On Sat09/04/22 at 1330, STAT [facility] ondansetron 4 mg disintegrat ing tablet 09-04 00:00: 00 Yes [id number] 4mg Take 1 tablet by mouth every 8 (eight) hours as needed for Nausea and Vomiting (N/V). [facility] ondansetron 4 mg disintegrat ing tablet 09-04 00:00: 00 Yes [id number] 4mg Take 1 tablet by mouth every 8 (eight) hours as needed for Nausea and Vomiting (N/V). [facility] ondansetron 4 mg disintegrat ing tablet 0 09-04 00:00: 00 Yes [id number] 4mg Take 1 tablet by mouth every 8 (eight) hours as needed for Nausea and Vomiting (N/V). [facility] ondansetron 4 mg disintegrat ing tablet 0 09-04 00:00: 00 Yes [id number] 4mg Take 1 tablet by mouth every 8 (eight) hours as needed for Nausea and Vomiting (N/V). [facility] ondansetron 4 mg disintegrat ing tablet 0 09-04 00:00: 00 Yes [id number] 4mg Take 1 tablet by mouth every 8 (eight) hours as needed for Nausea and Vomiting (N/V). [facility] ondansetron 4 mg disintegrat ing tablet 09-04 00:00: 00 Yes [id number] 4mg Take 1 tablet by mouth every 8 (eight) hours as needed for Nausea and Vomiting (N/V). [facility] ondansetron 4 mg disintegrat ing tablet 0 09-04 00:00: 00 Yes [id number] 4mg Take 1 tablet by mouth every 8 (eight) hours as needed for Nausea and Vomiting (N/V). [facility] ondansetron 4 mg disintegrat ing tablet 0 09-04 00:00: 00 Yes [id number] 4mg Take 1 tablet by mouth every 8 (eight) hours as needed for Nausea and Vomiting (N/V). [facility] ondansetron 4 mg disintegrat ing tablet 0 09-04 00:00: 00 Yes [id number] 4mg Take 1 tablet by mouth every 8 (eight) hours as needed for Nausea and Vomiting (N/V). [facility] ondansetron 4 mg disintegrat ing tablet 2022-0 09-04 00:00: 00 Yes [id number] 4mg Take 1 tablet by mouth every 8 (eight) hours as needed for Nausea and Vomiting (N/V). [facility] ondansetron 4 mg disintegrat ing tablet 09-04 00:00: 00 Yes [id number] 4mg Take 1 tablet by mouth every 8 (eight) hours as needed for Nausea and Vomiting (N/V). [facility] ondansetron 4 mg disintegrat ing tablet 09-04 00:00: 00 Yes [id number] 4mg Take 1 tablet by mouth every 8 (eight) hours as needed for Nausea and Vomiting (N/V). [facility] ondansetron 4 mg disintegrat ing tablet 09-04 00:00: 00 Yes [id number] 4mg Take 1 tablet by mouth every 8 (eight) hours as needed for Nausea and Vomiting (N/V). [facility] ondansetron 4 mg disintegrat ing tablet 09-04 00:00: 00 Yes [id number] 4mg Take 1 tablet by mouth every 8 (eight) hours as needed for Nausea and Vomiting (N/V). [facility] ondansetron 4 mg disintegrat ing tablet 09-04 00:00: 00 Yes [id number] 4mg Take 1 tablet by mouth every 8 (eight) hours as needed for Nausea and Vomiting (N/V). [facility] ondansetron 4 mg disintegrat ing tablet 09-04 00:00: 00 Yes [id number] 4mg Take 1 tablet by mouth every 8 (eight) hours as needed for Nausea and Vomiting (N/V). [facility] amoxicillin 875 mg tablet 0 08-24 00:00: 00 Yes TAKE 1 TABLET BY MOUTH EVERY 12 HOURS FOR 10 DAYS [facility] amoxicillin 875 mg tablet 3-0 08-24 00:00: 00 Yes TAKE 1 TABLET BY MOUTH EVERY 12 HOURS FOR 10 DAYS [facility] amoxicillin 875 mg tablet 0 08-24 00:00: 00 Yes TAKE 1 TABLET BY MOUTH EVERY 12 HOURS FOR 10 DAYS [facility] amoxicillin 875 mg tablet 3-0 08-24 00:00: 00 Yes TAKE 1 TABLET BY MOUTH EVERY 12 HOURS FOR 10 DAYS [facility] amoxicillin 875 mg tablet 2022-0 7-14 00:00: 00 Yes TAKE 1 TABLET BY MOUTH EVERY 12 HOURS FOR 10 DAYS [facility] amoxicillin 875 mg tablet 2022-0 14 00:00: 00 Yes TAKE 1 TABLET BY MOUTH EVERY 12 HOURS FOR 10 DAYS [facility] amoxicillin 875 mg tablet 2022-0 14 00:00: 00 Yes TAKE 1 TABLET BY MOUTH EVERY 12 HOURS FOR 10 DAYS [facility] amoxicillin 875 mg tablet 2022-0 14 00:00: 00 Yes TAKE 1 TABLET BY MOUTH EVERY 12 HOURS FOR 10 DAYS [facility] amoxicillin 875 mg tablet 2022-0 14 00:00: 00 Yes TAKE 1 TABLET BY MOUTH EVERY 12 HOURS FOR 10 DAYS [facility] amoxicillin 875 mg tablet 2022-0 14 00:00: 00 Yes TAKE 1 TABLET BY MOUTH EVERY 12 HOURS FOR 10 DAYS [facility] amoxicillin 875 mg tablet 2022-0 14 00:00: 00 Yes TAKE 1 TABLET BY MOUTH EVERY 12 HOURS FOR 10 DAYS [facility] amoxicillin 875 mg tablet 0 14 00:00: 00 Yes TAKE 1 TABLET BY MOUTH EVERY 12 HOURS FOR 10 DAYS [facility] amoxicillin 875 mg tablet 0 14 00:00: 00 Yes TAKE 1 TABLET BY MOUTH EVERY 12 HOURS FOR 10 DAYS [facility] amoxicillin 875 mg tablet 2022-0 14 00:00: 00 Yes TAKE 1 TABLET BY MOUTH EVERY 12 HOURS FOR 10 DAYS [facility] amoxicillin 875 mg tablet 0 14 00:00: 00 Yes TAKE 1 TABLET BY MOUTH EVERY 12 HOURS [facility] 12 mg 2022-08-19 20:30: 00 08-19 19:51 :00 No [id number] 12mg [facility] dexAMETHaso ne (DECADRON) tablet 12 mg 2022-08-19 20:30: 00 08-19 19:51 :00 No [id number] 12mg 12 mg, Oral, ONCE, 1 dose, On 08/19/22 at 1530, Routine [facility] dexAMETHaso ne (DECADRON) tablet 12 mg 08-19 20:30: 00 08-19 19:51 :00 No [id number] 12mg [facility] dexAMETHaso ne (DECADRON) tablet 12 mg 08-19 20:30: 00 08-19 19:51 :00 No [id number] 12mg 12 mg, Oral, ONCE, 1 dose, On 08/19/22 at 1530, Routine [facility] dexAMETHaso ne (DECADRON) tablet 12 mg 08-19 20:30: 00 08-19 19:51 :00 No [id number] 12mg [facility] dexAMETHaso ne (DECADRON) tablet 12 mg 08-19 20:30: 00 08-19 19:51 :00 No [id number] 12mg 12 mg, Oral, ONCE, 1 dose, On 08/19/22 at 1530, Routine [facility] dexAMETHaso ne (DECADRON) tablet 12 mg 08-19 20:30: 00 08-19 19:51 :00 No [id number] 12mg [facility] dexAMETHaso ne (DECADRON) tablet 12 mg 08-19 20:30: 00 08-19 19:51 :00 No [id number] 12mg 12 mg, Oral, ONCE, 1 dose, On 08/19/22 at 1530, Routine [facility] dexAMETHaso ne (DECADRON) tablet 12 mg 08-19 20:30: 00 08-19 19:51 :00 No [id number] 12mg [facility] dexAMETHaso ne (DECADRON) tablet 12 mg 08-19 20:30: 00 08-19 19:51 :00 No [id number] 12mg 12 mg, Oral, ONCE, 1 dose, On 08/19/22 at 1530, Routine [facility] codeine-gua ifenesin 10-100 mg/5 mL oral solution 2022-0 08-19 00:00: 00 08-27 04:59 :00 No [id number] 10mL Take 10 mL by mouth every 8 (eight) hours as needed for Cough for up to 7 days. Indication s: acute pain [facility] codeine-gua ifenesin 10-100 mg/5 mL oral solution 08-19 00:00: 00 08-27 04:59 :00 No [id number] 10mL Take 10 mL by mouth every 8 (eight) hours as needed for Cough for up to 7 days. Indication s: acute pain [facility] codeine-gua ifenesin 10-100 mg/5 mL oral solution 08-19 00:00: 00 08-27 04:59 :00 No [id number] 10mL Take 10 mL by mouth every 8 (eight) hours as needed for Cough for up to 7 days. Indication s: acute pain [facility] codeine-gua ifenesin 10-100 mg/5 mL oral solution 08-19 00:00: 00 08-27 04:59 :00 No [id number] 10mL Take 10 mL by mouth every 8 (eight) hours as needed for Cough for up to 7 days. [facility]: [facility]in [facility]-100 mg/5 mL oral solution 08-19 00:00: 00 08-27 04:59 :00 No [id number] 10mL Take 10 mL by mouth every 8 (eight) hours as needed for Cough for up to 7 days. Indication s: acute pain Univers [facility] dexamethaso ne (DECADRON) injection 10 mg 07-20 17:15: 00 07-20 16:20 :00 No [id number] 10mg [facility] dexamethaso ne (DECADRON) injection 10 mg 07-20 17:15: 00 07-20 16:20 :00 No [id number] 10mg 10 mg, Intramuscu lar, ONCE, 1 dose, On Sat07/20/22 at 1215, Routine [facility] meperidine HCl/prometh HCl (MEPERIDINE -PROMETHAZI NE ORAL) 07-20 00:00: 09-11 00:00 :00 No TAKE 5 ML BY MOUTH 4 TIMES DAILY FOR 10 DAYS [facility] meperidine HCl/prometh HCl (MEPERIDINE -PROMETHAZI NE ORAL) 07-20 00:00: 09-11 00:00 :00 No TAKE 5 ML BY MOUTH 4 TIMES DAILY FOR 10 DAYS [facility] promethazin e-dextromet horphan 6.25-15 mg/5 mL syrup 07-20 00:00: 07-31 04:59 :00 No [id number] 5mL Take 5 mL by mouth 4 (four) times daily for 10 days. [facility] amoxicillin -clavulanat e (AUGMENTIN) 875-125 mg per tablet 07-20 00:00: 07-31 04:59 :00 No [id number] 1{tbl} Take 1 tablet by mouth in the morning and 1 tablet in the evening. Do all this for 10 days. [facility] promethazin e-dextromet horphan 6.25-15 mg/5 mL syrup 07-20 00:00: 00 07-31 04:59 :00 No [id number] 5mL Take 5 mL by mouth 4 (four) times daily for 10 days. [facility] amoxicillin -clavulanat e (AUGMENTIN) 875-125 mg per tablet 07-20 00:00: 00 07-31 04:59 :00 No [id number] 1{tbl} Take 1 tablet by mouth in the morning and 1 tablet in the evening. Do all this for 10 days. [facility] azithromyci n 500 mg tablet 07-15 00:00: 00 Yes TAKE 1 TABLET BY MOUTH ONCE DAILY FOR 5 DAYS [facility] cetirizine 10 mg tablet 07-15 00:00: 00 Yes TAKE 1 TABLET BY MOUTH ONCE DAILY NEEDED FOR ALLERGY CONTROL [facility] famotidine 20 mg tablet 2022-0 07-15 00:00: 00 Yes 20mg Take 1 tablet by mouth in the morning. [facility] predniSONE 20 mg tablet 2022-0 07-15 00:00: 00 Yes TAKE 2 TABLETS BY MOUTH ONCE DAILY FOR 5 DAYS [facility] azithromyci n 500 mg tablet 2022-0 07-15 00:00: 00 Yes TAKE 1 TABLET BY MOUTH ONCE DAILY FOR 5 DAYS [facility] cetirizine 10 mg tablet 2022-0 07-15 00:00: 00 Yes TAKE 1 TABLET BY MOUTH ONCE DAILY NEEDED FOR ALLERGY CONTROL [facility] famotidine 20 mg tablet 2022-0 07-15 00:00: 00 Yes 20mg Take 1 tablet by mouth in the morning. [facility] predniSONE 20 mg tablet 2022-0 07-15 00:00: 00 Yes TAKE 2 TABLETS BY MOUTH ONCE DAILY FOR 5 DAYS [facility] azithromyci n 500 mg tablet 2022-0 07-15 00:00: 00 Yes TAKE 1 TABLET BY MOUTH ONCE DAILY FOR 5 DAYS [facility] cetirizine 10 mg tablet 2022-0 07-15 00:00: 00 Yes TAKE 1 TABLET BY MOUTH ONCE DAILY NEEDED FOR ALLERGY CONTROL [facility] famotidine 20 mg tablet 2022-0 07-15 00:00: 00 Yes 20mg Take 1 tablet by mouth in the morning. [facility] predniSONE 20 mg tablet 2022-0 07-15 00:00: 00 Yes TAKE 2 TABLETS BY MOUTH ONCE DAILY FOR 5 DAYS [facility] azithromyci n 500 mg tablet 2022-0 07-15 00:00: 00 Yes TAKE 1 TABLET BY MOUTH ONCE DAILY FOR 5 DAYS [facility] cetirizine 10 mg tablet 2022-0 07-15 00:00: 00 Yes TAKE 1 TABLET BY MOUTH ONCE DAILY NEEDED FOR ALLERGY CONTROL [facility] famotidine 20 mg tablet 2022-0 07-15 00:00: 00 Yes 20mg Take 1 tablet by mouth in the morning. [facility] predniSONE 20 mg tablet 2022-0 07-15 00:00: 00 Yes TAKE 2 TABLETS BY MOUTH ONCE DAILY FOR 5 DAYS [facility] azithromyci n 500 mg tablet 2022-0 07-15 00:00: 00 Yes TAKE 1 TABLET BY MOUTH ONCE DAILY FOR 5 DAYS [facility] cetirizine 10 mg tablet 2022-0 07-15 00:00: 00 Yes TAKE 1 TABLET BY MOUTH ONCE DAILY NEEDED FOR ALLERGY CONTROL [facility] famotidine 20 mg tablet 2022-0 07-15 00:00: 00 Yes 20mg Take 1 tablet by mouth in the morning. [facility] predniSONE 20 mg tablet 2022-0 07-15 00:00: 00 Yes TAKE 2 TABLETS BY MOUTH ONCE DAILY FOR 5 DAYS [facility] azithromyci n 500 mg tablet 2022-0 07-15 00:00: 00 Yes TAKE 1 TABLET BY MOUTH ONCE DAILY FOR 5 DAYS [facility] cetirizine 10 mg tablet 2022-0 07-15 00:00: 00 Yes TAKE 1 TABLET BY MOUTH ONCE DAILY NEEDED FOR ALLERGY CONTROL [facility] famotidine 20 mg tablet 2022-0 07-15 00:00: 00 Yes 20mg Take 1 tablet by mouth in the morning. [facility] predniSONE 20 mg tablet 2022-0 07-15 00:00: 00 Yes TAKE 2 TABLETS BY MOUTH ONCE DAILY FOR 5 DAYS [facility] azithromyci n 500 mg tablet 2022-0 07-15 00:00: 00 Yes TAKE 1 TABLET BY MOUTH ONCE DAILY FOR 5 DAYS [facility] cetirizine 10 mg tablet 2022-0 07-15 00:00: 00 Yes TAKE 1 TABLET BY MOUTH ONCE DAILY NEEDED FOR ALLERGY CONTROL [facility] famotidine 20 mg tablet 2022-0 07-15 00:00: 00 Yes 20mg Take 1 tablet by mouth in the morning. [facility] predniSONE 20 mg tablet 2022-0 07-15 00:00: 00 Yes TAKE 2 TABLETS BY MOUTH ONCE DAILY FOR 5 DAYS [facility] azithromyci n 500 mg tablet 2022-0 07-15 00:00: 00 Yes TAKE 1 TABLET BY MOUTH ONCE DAILY FOR 5 DAYS [facility] cetirizine 10 mg tablet 2022-0 07-15 00:00: 00 Yes TAKE 1 TABLET BY MOUTH ONCE DAILY NEEDED FOR ALLERGY CONTROL [facility] famotidine 20 mg tablet 2022-0 07-15 00:00: 00 Yes 20mg Take 1 tablet by mouth in the morning. [facility] predniSONE 20 mg tablet 2022-0 07-15 00:00: 00 Yes TAKE 2 TABLETS BY MOUTH ONCE DAILY FOR 5 DAYS [facility] azithromyci n 500 mg tablet 2022-0 07-15 00:00: 00 Yes TAKE 1 TABLET BY MOUTH ONCE DAILY FOR 5 DAYS [facility] cetirizine 10 mg tablet 2022-0 07-15 00:00: 00 Yes TAKE 1 TABLET BY MOUTH ONCE DAILY NEEDED FOR ALLERGY CONTROL [facility] famotidine 20 mg tablet 2022-0 07-15 00:00: 00 Yes 20mg Take 1 tablet by mouth in the morning. [facility] predniSONE 20 mg tablet 2022-0 07-15 00:00: 00 Yes TAKE 2 TABLETS BY MOUTH ONCE DAILY FOR 5 DAYS [facility] azithromyci n 500 mg tablet 2022-0 07-15 00:00: 00 Yes TAKE 1 TABLET BY MOUTH ONCE DAILY FOR 5 DAYS [facility] cetirizine 10 mg tablet 2022-0 07-15 00:00: 00 Yes TAKE 1 TABLET BY MOUTH ONCE DAILY NEEDED FOR ALLERGY CONTROL [facility] famotidine 20 mg tablet 2022-0 07-15 00:00: 00 Yes 20mg Take 1 tablet by mouth in the morning. [facility] predniSONE 20 mg tablet 2022-0 07-15 00:00: 00 Yes TAKE 2 TABLETS BY MOUTH ONCE DAILY FOR 5 DAYS [facility] azithromyci n 500 mg tablet 2022-0 07-15 00:00: 00 Yes TAKE 1 TABLET BY MOUTH ONCE DAILY FOR 5 DAYS [facility] cetirizine 10 mg tablet 2022-0 07-15 00:00: 00 Yes TAKE 1 TABLET BY MOUTH ONCE DAILY NEEDED FOR ALLERGY CONTROL [facility] famotidine 20 mg tablet 2022-0 07-15 00:00: 00 Yes 20mg Take 1 tablet by mouth in the morning. [facility] predniSONE 20 mg tablet 2022-0 07-15 00:00: 00 Yes TAKE 2 TABLETS BY MOUTH ONCE DAILY FOR 5 DAYS [facility] azithromyci n 500 mg tablet 2022-0 07-15 00:00: 00 Yes TAKE 1 TABLET BY MOUTH ONCE DAILY FOR 5 DAYS [facility] cetirizine 10 mg tablet 2022-0 07-15 00:00: 00 Yes TAKE 1 TABLET BY MOUTH ONCE DAILY NEEDED FOR ALLERGY CONTROL [facility] famotidine 20 mg tablet 2022-0 07-15 00:00: 00 Yes 20mg Take 1 tablet by mouth in the morning. [facility] predniSONE 20 mg tablet 2022-0 07-15 00:00: 00 Yes TAKE 2 TABLETS BY MOUTH ONCE DAILY FOR 5 DAYS [facility] azithromyci n 500 mg tablet 2022-0 07-15 00:00: 00 Yes TAKE 1 TABLET BY MOUTH ONCE DAILY FOR 5 DAYS [facility] cetirizine 10 mg tablet 2022-0 07-15 00:00: 00 Yes TAKE 1 TABLET BY MOUTH ONCE DAILY NEEDED FOR ALLERGY CONTROL [facility] famotidine 20 mg tablet 2022-0 07-15 00:00: 00 Yes 20mg Take 1 tablet by mouth in the morning. [facility] predniSONE 20 mg tablet 2022-0 07-15 00:00: 00 Yes TAKE 2 TABLETS BY MOUTH ONCE DAILY FOR 5 DAYS [facility] azithromyci n 500 mg tablet 0 07-15 00:00: 00 Yes TAKE 1 TABLET BY MOUTH ONCE DAILY FOR 5 DAYS [facility] cetirizine 10 mg tablet 2022-0 07-15 00:00: 00 Yes TAKE 1 TABLET BY MOUTH ONCE DAILY NEEDED FOR ALLERGY CONTROL [facility] famotidine 20 mg tablet 2022-0 07-15 00:00: 00 Yes 20mg Take 1 tablet by mouth in the morning. [facility] predniSONE 20 mg tablet 2022-0 07-15 00:00: 00 Yes TAKE 2 TABLETS BY MOUTH ONCE DAILY FOR 5 DAYS [facility] azithromyci n 500 mg tablet 07-15 00:00: 00 Yes TAKE 1 TABLET BY MOUTH ONCE DAILY FOR 5 DAYS [facility] cetirizine 10 mg tablet 07-15 00:00: 00 Yes TAKE 1 TABLET BY MOUTH ONCE DAILY NEEDED FOR ALLERGY CONTROL [facility] famotidine 20 mg tablet 07-15 00:00: 00 Yes 20mg Take 1 tablet by mouth in the morning. [facility] predniSONE 20 mg tablet 07-15 00:00: 00 Yes TAKE 2 TABLETS BY MOUTH ONCE DAILY FOR 5 DAYS [facility] bromphenira mine-pseudo ephedrine-D M (BROMFED DM) 2-30-10 mg/5 mL syrup 07-11 00:00: 00 Yes [id number] 10mL Take 10 mL by mouth 4 (four) times daily as needed for Cold symptoms. [facility] albuterol 90 mcg/actuati on inhaler 07-11 00:00: 00 Yes [id number] 2{puff} Inhale 2 Puffs every 6 (six) hours as needed for Shortness of Breath or Wheezing. [facility] ibuprofen 600 mg tablet 07-11 00:00: 00 Yes [id number] 600mg Take 1 tablet by mouth every 6 (six) hours as needed for Pain (scale 1-3) or Pain (scale 4-6). [facility] bromphenira mine-pseudo ephedrine-D M (BROMFED DM) 2-30-10 mg/5 mL syrup 07-11 00:00: 00 Yes [id number] 10mL Take 10 mL by mouth 4 (four) times daily as needed for Cold symptoms. [facility] albuterol 90 mcg/actuati on inhaler 07-11 00:00: 00 Yes [id number] 2{puff} Inhale 2 Puffs every 6 (six) hours as needed for Shortness of Breath or Wheezing. [facility] ibuprofen 600 mg tablet 07-11 00:00: 00 Yes [id number] 600mg Take 1 tablet by mouth every 6 (six) hours as needed for Pain (scale 1-3) or Pain (scale 4-6). [facility] bromphenira mine-pseudo ephedrine-D M (BROMFED DM) 2-30-10 mg/5 mL syrup 07-11 00:00: 00 Yes [id number] 10mL Take 10 mL by mouth 4 (four) times daily as needed for Cold symptoms. [facility] albuterol 90 mcg/actuati on inhaler 07-11 00:00: 00 Yes [id number] 2{puff} Inhale 2 Puffs every 6 (six) hours as needed for Shortness of Breath or Wheezing. [facility] ibuprofen 600 mg tablet 07-11 00:00: 00 Yes [id number] 600mg Take 1 tablet by mouth every 6 (six) hours as needed for Pain (scale 1-3) or Pain (scale 4-6). [facility] bromphenira mine-pseudo ephedrine-D M (BROMFED DM) 2-30-10 mg/5 mL syrup 07-11 00:00: 00 Yes [id number] 10mL Take 10 mL by mouth 4 (four) times daily as needed for Cold symptoms. [facility] albuterol 90 mcg/actuati on inhaler 07-11 00:00: 00 Yes [id number] 2{puff} Inhale 2 Puffs every 6 (six) hours as needed for Shortness of Breath or Wheezing. [facility] ibuprofen 600 mg tablet 07-11 00:00: 00 Yes [id number] 600mg Take 1 tablet by mouth every 6 (six) hours as needed for Pain (scale 1-3) or Pain (scale 4-6). [facility] bromphenira mine-pseudo ephedrine-D M (BROMFED DM) 2-30-10 mg/5 mL syrup 07-11 00:00: 00 Yes [id number] 10mL Take 10 mL by mouth 4 (four) times daily as needed for Cold symptoms. [facility] albuterol 90 mcg/actuati on inhaler 07-11 00:00: 00 Yes [id number] 2{puff} Inhale 2 Puffs every 6 (six) hours as needed for Shortness of Breath or Wheezing. [facility] ibuprofen 600 mg tablet 07-11 00:00: 00 Yes [id number] 600mg Take 1 tablet by mouth every 6 (six) hours as needed for Pain (scale 1-3) or Pain (scale 4-6). [facility] bromphenira mine-pseudo ephedrine-D M (BROMFED DM) 2-30-10 mg/5 mL syrup 07-11 00:00: 00 Yes [id number] 10mL Take 10 mL by mouth 4 (four) times daily as needed for Cold symptoms. [facility] albuterol 90 mcg/actuati on inhaler 07-11 00:00: 00 Yes [id number] 2{puff} Inhale 2 Puffs every 6 (six) hours as needed for Shortness of Breath or Wheezing. [facility] ibuprofen 600 mg tablet 07-11 00:00: 00 Yes [id number] 600mg Take 1 tablet by mouth every 6 (six) hours as needed for Pain (scale 1-3) or Pain (scale 4-6). [facility] bromphenira mine-pseudo ephedrine-D M (BROMFED DM) 2-30-10 mg/5 mL syrup 07-11 00:00: 00 Yes [id number] 10mL Take 10 mL by mouth 4 (four) times daily as needed for Cold symptoms. [facility] albuterol 90 mcg/actuati on inhaler 07-11 00:00: 00 Yes [id number] 2{puff} Inhale 2 Puffs every 6 (six) hours as needed for Shortness of Breath or Wheezing. [facility] ibuprofen 600 mg tablet 07-11 00:00: 00 Yes [id number] 600mg Take 1 tablet by mouth every 6 (six) hours as needed for Pain (scale 1-3) or Pain (scale 4-6). [facility] bromphenira mine-pseudo ephedrine-D M (BROMFED DM) 2-30-10 mg/5 mL syrup 07-11 00:00: 00 Yes [id number] 10mL Take 10 mL by mouth 4 (four) times daily as needed for Cold symptoms. [facility] albuterol 90 mcg/actuati on inhaler 07-11 00:00: 00 Yes [id number] 2{puff} Inhale 2 Puffs every 6 (six) hours as needed for Shortness of Breath or Wheezing. [facility] ibuprofen 600 mg tablet 07-11 00:00: 00 Yes [id number] 600mg Take 1 tablet by mouth every 6 (six) hours as needed for Pain (scale 1-3) or Pain (scale 4-6). [facility] bromphenira mine-pseudo ephedrine-D M (BROMFED DM) 2-30-10 mg/5 mL syrup 07-11 00:00: 00 Yes [id number] 10mL Take 10 mL by mouth 4 (four) times daily as needed for Cold symptoms. [facility] albuterol 90 mcg/actuati on inhaler 07-11 00:00: 00 Yes [id number] 2{puff} Inhale 2 Puffs every 6 (six) hours as needed for Shortness of Breath or Wheezing. [facility] ibuprofen 600 mg tablet 07-11 00:00: 00 Yes [id number] 600mg Take 1 tablet by mouth every 6 (six) hours as needed for Pain (scale 1-3) or Pain (scale 4-6). [facility] bromphenira mine-pseudo ephedrine-D M (BROMFED DM) 2-30-10 mg/5 mL syrup 07-11 00:00: 00 Yes [id number] 10mL Take 10 mL by mouth 4 (four) times daily as needed for Cold symptoms. [facility] albuterol 90 mcg/actuati on inhaler 07-11 00:00: 00 Yes [id number] 2{puff} Inhale 2 Puffs every 6 (six) hours as needed for Shortness of Breath or Wheezing. [facility] ibuprofen 600 mg tablet 07-11 00:00: 00 Yes [id number] 600mg Take 1 tablet by mouth every 6 (six) hours as needed for Pain (scale 1-3) or Pain (scale 4-6). [facility] bromphenira mine-pseudo ephedrine-D M (BROMFED DM) 2-30-10 mg/5 mL syrup 07-11 00:00: 00 Yes [id number] 10mL Take 10 mL by mouth 4 (four) times daily as needed for Cold symptoms. [facility] albuterol 90 mcg/actuati on inhaler 07-11 00:00: 00 Yes [id number] 2{puff} Inhale 2 Puffs every 6 (six) hours as needed for Shortness of Breath or Wheezing. [facility] ibuprofen 600 mg tablet 07-11 00:00: 00 Yes [id number] 600mg Take 1 tablet by mouth every 6 (six) hours as needed for Pain (scale 1-3) or Pain (scale 4-6). [facility] bromphenira mine-pseudo ephedrine-D M (BROMFED DM) 2-30-10 mg/5 mL syrup 07-11 00:00: 00 Yes [id number] 10mL Take 10 mL by mouth 4 (four) times daily as needed for Cold symptoms. [facility] albuterol 90 mcg/actuati on inhaler 07-11 00:00: 00 Yes [id number] 2{puff} Inhale 2 Puffs every 6 (six) hours as needed for Shortness of Breath or Wheezing. [facility] ibuprofen 600 mg tablet 07-11 00:00: 00 Yes [id number] 600mg Take 1 tablet by mouth every 6 (six) hours as needed for Pain (scale 1-3) or Pain (scale 4-6). [facility] bromphenira mine-pseudo ephedrine-D M (BROMFED DM) 2-30-10 mg/5 mL syrup 07-11 00:00: 00 Yes [id number] 10mL Take 10 mL by mouth 4 (four) times daily as needed for Cold symptoms. [facility] albuterol 90 mcg/actuati on inhaler 07-11 00:00: 00 Yes [id number] 2{puff} Inhale 2 Puffs every 6 (six) hours as needed for Shortness of Breath or Wheezing. [facility] ibuprofen 600 mg tablet 07-11 00:00: 00 Yes [id number] 600mg Take 1 tablet by mouth every 6 (six) hours as needed for Pain (scale 1-3) or Pain (scale 4-6). [facility] bromphenira mine-pseudo ephedrine-D M (BROMFED DM) 2-30-10 mg/5 mL syrup 07-11 00:00: 00 Yes [id number] 10mL Take 10 mL by mouth 4 (four) times daily as needed for Cold symptoms. [facility] albuterol 90 mcg/actuati on inhaler 07-11 00:00: 00 Yes [id number] 2{puff} Inhale 2 Puffs every 6 (six) hours as needed for Shortness of Breath or Wheezing. [facility] ibuprofen 600 mg tablet 07-11 00:00: 00 Yes [id number] 600mg Take 1 tablet by mouth every 6 (six) hours as needed for Pain (scale 1-3) or Pain (scale 4-6). [facility] bromphenira mine-pseudo ephedrine-D M (BROMFED DM) 2-30-10 mg/5 mL syrup 07-11 00:00: 00 Yes [id number] 10mL Take 10 mL by mouth 4 (four) times daily as needed for Cold symptoms. [facility] albuterol 90 mcg/actuati on inhaler 07-11 00:00: 00 Yes [id number] 2{puff} Inhale 2 Puffs every 6 (six) hours as needed for Shortness of Breath or Wheezing. [facility] ibuprofen 600 mg tablet 07-11 00:00: 00 Yes [id number] 600mg Take 1 tablet by mouth every 6 (six) hours as needed for Pain (scale 1-3) or Pain (scale 4-6). [facility] bromphenira mine-pseudo ephedrine-D M (BROMFED DM) 2-30-10 mg/5 mL syrup 07-11 00:00: 00 Yes [id number] 10mL Take 10 mL by mouth 4 (four) times daily as needed for Cold symptoms. [facility] albuterol 90 mcg/actuati on inhaler 07-11 00:00: 00 Yes [id number] 2{puff} Inhale 2 Puffs every 6 (six) hours as needed for Shortness of Breath or Wheezing. [facility] ibuprofen 600 mg tablet 07-11 00:00: 00 Yes [id number] 600mg Take 1 tablet by mouth every 6 (six) hours as needed for Pain (scale 1-3) or Pain (scale 4-6). [facility] bromphenira mine-pseudo ephedrine-D M (BROMFED DM) 2-30-10 mg/5 mL syrup 07-11 00:00: 00 Yes [id number] 10mL Take 10 mL by mouth 4 (four) times daily as needed for Cold symptoms. [facility] albuterol 90 mcg/actuati on inhaler 07-11 00:00: 00 Yes [id number] 2{puff} Inhale 2 Puffs every 6 (six) hours as needed for Shortness of Breath or Wheezing. [facility] ibuprofen 600 mg tablet 07-11 00:00: 00 Yes [id number] 600mg Take 1 tablet by mouth every 6 (six) hours as needed for Pain (scale 1-3) or Pain (scale 4-6). [facility] bromphenira mine-pseudo ephedrine-D M (BROMFED DM) 2-30-10 mg/5 mL syrup 07-11 00:00: 00 Yes [id number] 10mL Take 10 mL by mouth 4 (four) times daily as needed for Cold symptoms. [facility] albuterol 90 mcg/actuati on inhaler 07-11 00:00: 00 Yes [id number] 2{puff} Inhale 2 Puffs every 6 (six) hours as needed for Shortness of Breath or Wheezing. [facility] ibuprofen 600 mg tablet 07-11 00:00: 00 Yes [id number] 600mg Take 1 tablet by mouth every 6 (six) hours as needed for Pain (scale 1-3) or Pain (scale 4-6). [facility] bromphenira mine-pseudo ephedrine-D M (BROMFED DM) 2-30-10 mg/5 mL syrup 07-11 00:00: 00 Yes [id number] 10mL Take 10 mL by mouth 4 (four) times daily as needed for Cold symptoms. [facility] albuterol 90 mcg/actuati on inhaler 07-11 00:00: 00 Yes [id number] 2{puff} Inhale 2 Puffs every 6 (six) hours as needed for Shortness of Breath or Wheezing. [facility] ibuprofen 600 mg tablet 07-11 00:00: 00 Yes [id number] 600mg Take 1 tablet by mouth every 6 (six) hours as needed for Pain (scale 1-3) or Pain (scale 4-6). [facility] bromphenira mine-pseudo ephedrine-D M (BROMFED DM) 2-30-10 mg/5 mL syrup 07-11 00:00: 00 Yes [id number] 10mL Take 10 mL by mouth 4 (four) times daily as needed for Cold symptoms. [facility] albuterol 90 mcg/actuati on inhaler 07-11 00:00: 00 Yes [id number] 2{puff} Inhale 2 Puffs every 6 (six) hours as needed for Shortness of Breath or Wheezing. [facility] ibuprofen 600 mg tablet 07-11 00:00: 00 Yes [id number] 600mg Take 1 tablet by mouth every 6 (six) hours as needed for Pain (scale 1-3) or Pain (scale 4-6). [facility] bromphenira mine-pseudo ephedrine-D M (BROMFED DM) 2-30-10 mg/5 mL syrup 07-11 00:00: 00 Yes [id number] 10mL Take 10 mL by mouth 4 (four) times daily as needed for Cold symptoms. [facility] albuterol 90 mcg/actuati on inhaler 07-11 00:00: 00 Yes [id number] 2{puff} Inhale 2 Puffs every 6 (six) hours as needed for Shortness of Breath or Wheezing. [facility] ibuprofen 600 mg tablet 07-11 00:00: 00 Yes [id number] 600mg Take 1 tablet by mouth every 6 (six) hours as needed for Pain (scale 1-3) or Pain (scale 4-6). [facility] bromphenira mine-pseudo ephedrine-D M (BROMFED DM) 2-30-10 mg/5 mL syrup 07-11 00:00: 00 Yes [id number] 10mL Take 10 mL by mouth 4 (four) times daily as needed for Cold symptoms. [facility] albuterol 90 mcg/actuati on inhaler 07-11 00:00: 00 Yes [id number] 2{puff} Inhale 2 Puffs every 6 (six) hours as needed for Shortness of Breath or Wheezing. [facility] ibuprofen 600 mg tablet 07-11 00:00: 00 Yes [id number] 600mg Take 1 tablet by mouth every 6 (six) hours as needed for Pain (scale 1-3) or Pain (scale 4-6). [facility] bromphenira mine-pseudo ephedrine-D M (BROMFED DM) 2-30-10 mg/5 mL syrup 07-11 00:00: 00 Yes [id number] 10mL Take 10 mL by mouth 4 (four) times daily as needed for Cold symptoms. [facility] albuterol 90 mcg/actuati on inhaler 07-11 00:00: 00 Yes [id number] 2{puff} Inhale 2 Puffs every 6 (six) hours as needed for Shortness of Breath or Wheezing. [facility] ibuprofen 600 mg tablet 07-11 00:00: 00 Yes [id number] 600mg Take 1 tablet by mouth every 6 (six) hours as needed for Pain (scale 1-3) or Pain (scale 4-6). [facility] bromphenira mine-pseudo ephedrine-D M (BROMFED DM) 2-30-10 mg/5 mL syrup 07-11 00:00: 00 Yes [id number] 10mL Take 10 mL by mouth 4 (four) times daily as needed for Cold symptoms. [facility] albuterol 90 mcg/actuati on inhaler 07-11 00:00: 00 Yes [id number] 2{puff} Inhale 2 Puffs every 6 (six) hours as needed for Shortness of Breath or Wheezing. [facility] ibuprofen 600 mg tablet 07-11 00:00: 00 Yes [id number] 600mg Take 1 tablet by mouth every 6 (six) hours as needed for Pain (scale 1-3) or Pain (scale 4-6). [facility] bromphenira mine-pseudo ephedrine-D M (BROMFED DM) 2-30-10 mg/5 mL syrup 07-11 00:00: 00 Yes [id number] 10mL Take 10 mL by mouth 4 (four) times daily as needed for Cold symptoms. [facility] albuterol 90 mcg/actuati on inhaler 07-11 00:00: 00 Yes [id number] 2{puff} Inhale 2 Puffs every 6 (six) hours as needed for Shortness of Breath or Wheezing. [facility] ibuprofen 600 mg tablet 07-11 00:00: 00 Yes [id number] 600mg Take 1 tablet by mouth every 6 (six) hours as needed for Pain (scale 1-3) or Pain (scale 4-6). [facility] bromphenira mine-pseudo ephedrine-D M (BROMFED DM) 2-30-10 mg/5 mL syrup 07-11 00:00: 00 Yes [id number] 10mL Take 10 mL by mouth 4 (four) times daily as needed for Cold symptoms. [facility] albuterol 90 mcg/actuati on inhaler 07-11 00:00: 00 Yes [id number] 2{puff} Inhale 2 Puffs every 6 (six) hours as needed for Shortness of Breath or Wheezing. [facility] ibuprofen 600 mg tablet 07-11 00:00: 00 Yes [id number] 600mg Take 1 tablet by mouth every 6 (six) hours as needed for Pain (scale 1-3) or Pain (scale 4-6). [facility] bromphenira mine-pseudo ephedrine-D M (BROMFED DM) 2-30-10 mg/5 mL syrup 07-11 00:00: 00 Yes [id number] 10mL Take 10 mL by mouth 4 (four) times daily as needed for Cold symptoms. [facility] albuterol 90 mcg/actuati on inhaler 07-11 00:00: 00 Yes [id number] 2{puff} Inhale 2 Puffs every 6 (six) hours as needed for Shortness of Breath or Wheezing. [facility] ibuprofen 600 mg tablet 07-11 00:00: 00 Yes [id number] 600mg Take 1 tablet by mouth every 6 (six) hours as needed for Pain (scale 1-3) or Pain (scale 4-6). [facility] clindamycin 300 mg capsule 2022-0 06-01 00:00: 00 06-23 04:59 :00 No [id number] 300mg Take 1 capsule by mouth 4 (four) times daily for 21 days. [facility] clindamycin 300 mg capsule 2022-0 -21 00:00: 00 06-23 04:59 :00 No [id number] 300mg Take 1 capsule by mouth 4 (four) times daily for 21 days. [facility] clindamycin 300 mg capsule 2022-0 4-21 00:00: 00 06-23 04:59 :00 No [id number] 300mg Take 1 capsule by mouth 4 (four) times daily for 21 days. [facility] clindamycin 300 mg capsule 3-0 4-21 00:00: 00 06-23 04:59 :00 No [id number] 300mg Take 1 capsule by mouth 4 (four) times daily for 21 days. [facility] clindamycin 300 mg capsule 2022-0 4-21 00:00: 00 06-23 04:59 :00 No [id number] 300mg Take 1 capsule by mouth 4 (four) times daily for 21 days. [facility] bromphenira mine-pseudo ephedrine-D M (BROMFED DM) 2-30-10 mg/5 mL syrup 2022-0 3-30 00:00: 00 05-21 04:59 :00 No [id number] 5mL Take 5 mL by mouth 4 (four) times daily for 10 days. [facility] bromphenira mine-pseudo ephedrine-D M (BROMFED DM) 2-30-10 mg/5 mL syrup 2022-0 330 00:00: 00 05-21 04:59 :00 No [id number] 5mL Take 5 mL by mouth 4 (four) times daily for 10 days. [facility] acetaminoph en-codeine 300-30 mg tablet 2022-0 3 00:00: 00 Yes [id number] 1{tbl} Take 1-2 tablets by mouth every 6 (six) hours as needed for Pain (scale 4-6). Indication s: acute pain [facility] benzonatate 100 mg capsule 2022-0 3-23 00:00: 00 Yes [id number] 100mg Take 1 capsule by mouth 3 (three) times daily as needed for Cough. [facility] acetaminoph en-codeine 300-30 mg tablet 2022-0 3-23 00:00: 00 Yes [id number] 1{tbl} Take 1-2 tablets by mouth every 6 (six) hours as needed for Pain (scale 4-6). Indication s: acute pain [facility] benzonatate 100 mg capsule 3-0 3-23 00:00: 00 Yes [id number] 100mg Take 1 capsule by mouth 3 (three) times daily as needed for Cough. [facility] acetaminoph en-codeine 300-30 mg tablet 3-0 3-23 00:00: 00 Yes [id number] 1{tbl} Take 1-2 tablets by mouth every 6 (six) hours as needed for Pain (scale 4-6). Indication s: acute pain [facility] benzonatate 100 mg capsule 3-0 3 00:00: 00 Yes [id number] 100mg Take 1 capsule by mouth 3 (three) times daily as needed for Cough. [facility] acetaminoph en-codeine 300-30 mg tablet 3-0 3 00:00: 00 Yes [id number] 1{tbl} Take 1-2 tablets by mouth every 6 (six) hours as needed for Pain (scale 4-6). Indication s: acute pain [facility] benzonatate 100 mg capsule 3-0 3 00:00: 00 Yes [id number] 100mg Take 1 capsule by mouth 3 (three) times daily as needed for Cough. [facility] acetaminoph en-codeine 300-30 mg tablet 3-0 3 00:00: 00 Yes [id number] 1{tbl} Take 1-2 tablets by mouth every 6 (six) hours as needed for Pain (scale 4-6). Indication s: acute pain [facility] benzonatate 100 mg capsule 3-0 3 00:00: 00 Yes [id number] 100mg Take 1 capsule by mouth 3 (three) times daily as needed for Cough. [facility] acetaminoph en-codeine 300-30 mg tablet 3-0 05-03 00:00: 00 Yes [id number] 1{tbl} Take 1-2 tablets by mouth every 6 (six) hours as needed for Pain (scale 4-6). Indication s: acute pain [facility] benzonatate 100 mg capsule 3-0 3 00:00: 00 Yes [id number] 100mg Take 1 capsule by mouth 3 (three) times daily as needed for Cough. [facility] acetaminoph en-codeine 300-30 mg tablet 3-0 3 00:00: 00 Yes [id number] 1{tbl} Take 1-2 tablets by mouth every 6 (six) hours as needed for Pain (scale 4-6). Indication s: acute pain [facility] benzonatate 100 mg capsule 2023-0 3- 00:00: 00 Yes [id number] 100mg Take 1 capsule by mouth 3 (three) times daily as needed for Cough. [facility] acetaminoph en-codeine 300-30 mg tablet 2023-0 3-23 00:00: 00 Yes [id number] 1{tbl} Take 1-2 tablets by mouth every 6 (six) hours as needed for Pain (scale 4-6). Indication s: acute pain [facility] benzonatate 100 mg capsule 2023-0 3-23 00:00: 00 Yes [id number] 100mg Take 1 capsule by mouth 3 (three) times daily as needed for Cough. [facility] acetaminoph en-codeine 300-30 mg tablet 2023-0 3-23 00:00: 00 Yes [id number] 1{tbl} Take 1-2 tablets by mouth every 6 (six) hours as needed for Pain (scale 4-6). Indication s: acute pain [facility] benzonatate 100 mg capsule 2023-0 3-23 00:00: 00 Yes [id number] 100mg Take 1 capsule by mouth 3 (three) times daily as needed for Cough. [facility] acetaminoph en-codeine 300-30 mg tablet 2023-0 3 00:00: 00 Yes [id number] 1{tbl} Take 1-2 tablets by mouth every 6 (six) hours as needed for Pain (scale 4-6). Indication s: acute pain [facility] benzonatate 100 mg capsule 2023-0 3-23 00:00: 00 Yes [id number] 100mg Take 1 capsule by mouth 3 (three) times daily as needed for Cough. [facility] acetaminoph en-codeine 300-30 mg tablet 2023-0 3-23 00:00: 00 Yes [id number] 1{tbl} Take 1-2 tablets by mouth every 6 (six) hours as needed for Pain (scale 4-6). Indication s: acute pain [facility] benzonatate 100 mg capsule 2023-0 3-23 00:00: 00 Yes [id number] 100mg Take 1 capsule by mouth 3 (three) times daily as needed for Cough. [facility] acetaminoph en-codeine 300-30 mg tablet 2023-0 3-23 00:00: 00 Yes [id number] 1{tbl} Take 1-2 tablets by mouth every 6 (six) hours as needed for Pain (scale 4-6). Indication s: acute pain [facility] benzonatate 100 mg capsule 2023-0 3 00:00: 00 Yes [id number] 100mg Take 1 capsule by mouth 3 (three) times daily as needed for Cough. [facility] acetaminoph en-codeine 300-30 mg tablet 3-0 3 00:00: 00 Yes [id number] 1{tbl} Take 1-2 tablets by mouth every 6 (six) hours as needed for Pain (scale 4-6). Indication s: acute pain [facility] benzonatate 100 mg capsule 3-0 3 00:00: 00 Yes [id number] 100mg Take 1 capsule by mouth 3 (three) times daily as needed for Cough. [facility] acetaminoph en-codeine 300-30 mg tablet 3-0 3 00:00: 00 Yes [id number] 1{tbl} Take 1-2 tablets by mouth every 6 (six) hours as needed for Pain (scale 4-6). Indication s: acute pain [facility] benzonatate 100 mg capsule 3-0 3 00:00: 00 Yes [id number] 100mg Take 1 capsule by mouth 3 (three) times daily as needed for Cough. [facility] acetaminoph en-codeine 300-30 mg tablet 3-0 3 00:00: 00 Yes [id number] 1{tbl} Take 1-2 tablets by mouth every 6 (six) hours as needed for Pain (scale 4-6). Indication s: acute pain [facility] benzonatate 100 mg capsule 3-0 323 00:00: 00 Yes [id number] 100mg Take 1 capsule by mouth 3 (three) times daily as needed for Cough. [facility] acetaminoph en-codeine 300-30 mg tablet 3-0 3-23 00:00: 00 Yes [id number] 1{tbl} Take 1-2 tablets by mouth every 6 (six) hours as needed for Pain (scale 4-6). Indication s: acute pain [facility] benzonatate 100 mg capsule 3-0 3 00:00: 00 Yes [id number] 100mg Take 1 capsule by mouth 3 (three) times daily as needed for Cough. [facility] acetaminoph en-codeine 300-30 mg tablet 3-0 3 00:00: 00 Yes [id number] 1{tbl} Take 1-2 tablets by mouth every 6 (six) hours as needed for Pain (scale 4-6). Indication s: acute pain [facility] benzonatate 100 mg capsule 3-0 3 00:00: 00 Yes [id number] 100mg Take 1 capsule by mouth 3 (three) times daily as needed for Cough. [facility] acetaminoph en-codeine 300-30 mg tablet 3-0 3 00:00: 00 Yes [id number] 1{tbl} Take 1-2 tablets by mouth every 6 (six) hours as needed for Pain (scale 4-6). Indication s: acute pain [facility] benzonatate 100 mg capsule 3-0 3 00:00: 00 Yes [id number] 100mg Take 1 capsule by mouth 3 (three) times daily as needed for Cough. [facility] acetaminoph en-codeine 300-30 mg tablet 3-0 05-03 00:00: 00 Yes [id number] 1{tbl} Take 1-2 tablets by mouth every 6 (six) hours as needed for Pain (scale 4-6). Indication s: acute pain [facility] benzonatate 100 mg capsule 3-0 3 00:00: 00 Yes [id number] 100mg Take 1 capsule by mouth 3 (three) times daily as needed for Cough. [facility] acetaminoph en-codeine 300-30 mg tablet 3-0 3 00:00: 00 Yes [id number] 1{tbl} Take 1-2 tablets by mouth every 6 (six) hours as needed for Pain (scale 4-6). Indication s: acute pain [facility] benzonatate 100 mg capsule 2023-0 3-23 00:00: 00 Yes [id number] 100mg Take 1 capsule by mouth 3 (three) times daily as needed for Cough. [facility] acetaminoph en-codeine 300-30 mg tablet 3-0 323 00:00: 00 Yes [id number] 1{tbl} Take 1-2 tablets by mouth every 6 (six) hours as needed for Pain (scale 4-6). [facility] 323 00:00: 00 Yes [id number] 100mg Take 1 capsule by mouth 3 (three) times daily as needed for Cough. [facility] acetaminoph en-codeine 300-30 mg tablet 3-0 3- 00:00: 00 Yes [id number] 1{tbl} Take 1-2 tablets by mouth every 6 (six) hours as needed for Pain (scale 4-6). [facility]0 3 00:00: 00 Yes [id number] 100mg Take 1 capsule by mouth 3 (three) times daily as needed for Cough. [facility] acetaminoph en-codeine 300-30 mg tablet 3-0 3 00:00: 00 Yes [id number] 1{tbl} Take 1-2 tablets by mouth every 6 (six) hours as needed for Pain (scale 4-6). Indication s: acute pain [facility] benzonatate 100 mg capsule 2023-0 3 00:00: 00 Yes [id number] 100mg Take 1 capsule by mouth 3 (three) times daily as needed for Cough. [facility] acetaminoph en-codeine 300-30 mg tablet 3-0 3 00:00: 00 Yes [id number] 1{tbl} Take 1-2 tablets by mouth every 6 (six) hours as needed for Pain (scale 4-6). Indication s: acute pain [facility] benzonatate 100 mg capsule 2023-0 3-23 00:00: 00 Yes [id number] 100mg Take 1 capsule by mouth 3 (three) times daily as needed for Cough. [facility] acetaminoph en-codeine 300-30 mg tablet 2023-0 3 00:00: 00 Yes [id number] 1{tbl} Take 1-2 tablets by mouth every 6 (six) hours as needed for Pain (scale 4-6). Indication s: acute pain [facility] benzonatate 100 mg capsule 3-0 3- 00:00: 00 Yes [id number] 100mg Take 1 capsule by mouth 3 (three) times daily as needed for Cough. [facility] acetaminoph en-codeine 300-30 mg tablet 3-0 3 00:00: 00 Yes [id number] 1{tbl} Take 1-2 tablets by mouth every 6 (six) hours as needed for Pain (scale 4-6). Indication s: acute pain [facility] benzonatate 100 mg capsule 3-0 3 00:00: 00 Yes [id number] 100mg Take 1 capsule by mouth 3 (three) times daily as needed for Cough. [facility] acetaminoph en-codeine 300-30 mg tablet 3-0 3 00:00: 00 Yes [id number] 1{tbl} Take 1-2 tablets by mouth every 6 (six) hours as needed for Pain (scale 4-6). Indication s: acute pain [facility] benzonatate 100 mg capsule 3-0 3 00:00: 00 Yes [id number] 100mg Take 1 capsule by mouth 3 (three) times daily as needed for Cough. [facility] acetaminoph en-codeine 300-30 mg tablet 3-0 3 00:00: 00 Yes [id number] 1{tbl} Take 1-2 tablets by mouth every 6 (six) hours as needed for Pain (scale 4-6). Indication s: acute pain [facility] benzonatate 100 mg capsule 3-0 3 00:00: 00 Yes [id number] 100mg Take 1 capsule by mouth 3 (three) times daily as needed for Cough. [facility] acetaminoph en-codeine 300-30 mg tablet 3-0 3- 00:00: 00 Yes [id number] 1{tbl} Take 1-2 tablets by mouth every 6 (six) hours as needed for Pain (scale 4-6). Indication s: acute pain [facility] benzonatate 100 mg capsule 3-0 3 00:00: 00 Yes [id number] 100mg Take 1 capsule by mouth 3 (three) times daily as needed for Cough. [facility] acetaminoph en-codeine 300-30 mg tablet 3-0 3 00:00: 00 Yes [id number] 1{tbl} Take 1-2 tablets by mouth every 6 (six) hours as needed for Pain (scale 4-6). Indication s: acute pain [facility] benzonatate 100 mg capsule 3-0 3 00:00: 00 Yes [id number] 100mg Take 1 capsule by mouth 3 (three) times daily as needed for Cough. [facility] acetaminoph en-codeine 300-30 mg tablet 3-0 3 00:00: 00 Yes [id number] 1{tbl} Take 1-2 tablets by mouth every 6 (six) hours as needed for Pain (scale 4-6). Indication s: acute pain [facility] benzonatate 100 mg capsule 3-0 3 00:00: 00 Yes [id number] 100mg Take 1 capsule by mouth 3 (three) times daily as needed for Cough. [facility] acetaminoph en-codeine 300-30 mg tablet 3-0 3 00:00: 00 Yes [id number] 1{tbl} Take 1-2 tablets by mouth every 6 (six) hours as needed for Pain (scale 4-6). Indication s: acute pain [facility] benzonatate 100 mg capsule 3-0 3 00:00: 00 Yes [id number] 100mg Take 1 capsule by mouth 3 (three) times daily [facility]30 mg tablet 3-0 3 00:00: 00 Yes [id number] 1{tbl} Take 1-2 tablets by mouth every 6 (six) hours as needed for Pain (scale 4-6). Indication s: acute pain [facility] benzonatate 100 mg capsule 3-0 3-23 00:00: 00 Yes [id number] 100mg Take 1 capsule by mouth 3 (three) times daily as needed for Cough. [facility] acetaminoph en-codeine 300-30 mg tablet 3-0 3-23 00:00: 00 Yes [id number] 1{tbl} Take 1-2 tablets by mouth every 6 (six) hours as needed for Pain (scale 4-6). Indication s: acute pain [facility] benzonatate 100 mg capsule 3-0 3-23 00:00: 00 Yes [id number] 100mg Take 1 capsule by mouth 3 (three) times daily as needed for Cough. [facility] acetaminoph en-codeine 300-30 mg tablet 2022-0 3-23 00:00: 00 Yes [id number] 1{tbl} Take 1-2 tablets by mouth every 6 (six) hours as needed for Pain (scale 4-6). Indication s: acute pain [facility] benzonatate 100 mg capsule 2022-0 323 00:00: 00 Yes [id number] 100mg Take 1 capsule by mouth 3 (three) times daily as needed for Cough. [facility] nirmatrelvi r-ritonavir (PAXLOVID, EUA,) 300 mg (150 mg x 2)-100 mg tablet 2022-0 3-16 00:00: 00 Yes [id number] 3{tbl} Take 3 tablets by mouth in the morning and 3 tablets in the evening. [facility] nirmatrelvi r-ritonavir (PAXLOVID, EUA,) 300 mg (150 mg x 2)-100 mg tablet 2022-0 3-16 00:00: 00 Yes [id number] 3{tbl} Take 3 tablets by mouth in the morning and 3 tablets in the evening. [facility] nirmatrelvi r-ritonavir (PAXLOVID, EUA,) 300 mg (150 mg x 2)-100 mg tablet 2022-0 3-16 00:00: 00 Yes [id number] 3{tbl} Take 3 tablets by mouth in the morning and 3 tablets in the evening. [facility] nirmatrelvi r-ritonavir (PAXLOVID, EUA,) 300 mg (150 mg x 2)-100 mg tablet 2022-0 3-16 00:00: 00 Yes [id number] 3{tbl} Take 3 tablets by mouth in the morning and 3 tablets in the evening. [facility] nirmatrelvi r-ritonavir (PAXLOVID, EUA,) 300 mg (150 mg x 2)-100 mg tablet 0 3-16 00:00: 00 Yes [id number] 3{tbl} Take 3 tablets by mouth in the morning and 3 tablets in the evening. [facility] nirmatrelvi r-ritonavir (PAXLOVID, EUA,) 300 mg (150 mg x 2)-100 mg tablet 0 3-16 00:00: 00 Yes [id number] 3{tbl} Take 3 tablets by mouth in the morning and 3 tablets in the evening. [facility] nirmatrelvi r-ritonavir (PAXLOVID, EUA,) 300 mg (150 mg x 2)-100 mg tablet 0 3-16 00:00: 00 Yes [id number] 3{tbl} Take 3 tablets by mouth in the morning and 3 tablets in the evening. [facility] nirmatrelvi r-ritonavir (PAXLOVID, EUA,) 300 mg (150 mg x 2)-100 mg tablet 0 3-16 00:00: 00 Yes [id number] 3{tbl} Take 3 tablets by mouth in the morning and 3 tablets in the evening. [facility] nirmatrelvi r-ritonavir (PAXLOVID, EUA,) 300 mg (150 mg x 2)-100 mg tablet 0 3-16 00:00: 00 Yes [id number] 3{tbl} Take 3 tablets by mouth in the morning and 3 tablets in the evening. [facility] nirmatrelvi r-ritonavir (PAXLOVID, EUA,) 300 mg (150 mg x 2)-100 mg tablet 0 3-16 00:00: 00 Yes [id number] 3{tbl} Take 3 tablets by mouth in the morning and 3 tablets in the evening. [facility] nirmatrelvi r-ritonavir (PAXLOVID, EUA,) 300 mg (150 mg x 2)-100 mg tablet -16 00:00: 00 Yes [id number] 3{tbl} Take 3 tablets by mouth in the morning and 3 tablets in the evening. [facility] nirmatrelvi r-ritonavir (PAXLOVID, EUA,) 300 mg (150 mg x 2)-100 mg tablet 3-16 00:00: 00 Yes [id number] 3{tbl} Take 3 tablets by mouth in the morning and 3 tablets in the evening. [facility] nirmatrelvi r-ritonavir (PAXLOVID, EUA,) 300 mg (150 mg x 2)-100 mg tablet 16 00:00: 00 Yes [id number] 3{tbl} Take 3 tablets by mouth in the morning and 3 tablets in the evening. [facility] nirmatrelvi r-ritonavir (PAXLOVID, EUA,) 300 mg (150 mg x 2)-100 mg tablet 16 00:00: 00 07-20 00:00 :00 No [id number] 3{tbl} Take 3 tablets by mouth in the morning and 3 tablets in the evening. [facility] penicillin g benzathine (BICILLIN L-A) injection 1.2 Million Units 04-12 20:30: 00 04-12 19:50 :00 No [id number] 1.210 [facility] penicillin g benzathine (BICILLIN L-A) injection 1.2 Million Units 04-12 20:30: 00 04-12 19:50 :00 No [id number] 1.210 1.2 Million Units, Intramuscu lar, ONCE, 1 dose, On Ara 04/12/22 at 1430, WILY
Re ason for Anti-Infec tive: Documented Infection< br>Documen manfred Infection Site: HEENT
D uration of Therapy: Other (see Comments) [facility] methylPREDN ISolone sod succ (SOLU-MEDRO L (PF)) injection 40 mg 2021-02 17:15: 00 12-18 16:31 :00 No [id number] 40mg Univer [facility] methylPREDN ISolone sod succ (SOLU-MEDRO L (PF)) injection 40 mg 2021-02 17:15: 00 12-18 16:31 :00 No [id number] 40mg 40 mg, Intramuscu lar, ONCE, 1 dose, On Sat12/18/21 at 1115, Routine [facility] bromphenira mine-pseudo ephedrine-D M (BROMFED DM) 2-30-10 mg/5 mL syrup 2021-02 00:00: 00 Yes [id number] 5mL Take 5 mL by mouth 4 (four) times daily as needed for Congestion /Allergies . [facility] bromphenira mine-pseudo ephedrine-D M (BROMFED DM) 2-30-10 mg/5 mL syrup 2021-02 00:00: 00 Yes [id number] 5mL Take 5 mL by mouth 4 (four) times daily as needed for Congestion /Allergies . [facility] bromphenira mine-pseudo ephedrine-D M (BROMFED DM) 2-30-10 mg/5 mL syrup 2021-02 00:00: 00 Yes [id number] 5mL Take 5 mL by mouth 4 (four) times daily as needed for Congestion /Allergies . [facility] bromphenira mine-pseudo ephedrine-D M (BROMFED DM) 2-30-10 mg/5 mL syrup 2021-02 00:00: 00 Yes [id number] 5mL Take 5 mL by mouth 4 (four) times daily as needed for Congestion /Allergies . [facility] bromphenira mine-pseudo ephedrine-D M (BROMFED DM) 2-30-10 mg/5 mL syrup 2021-02 00:00: 00 Yes [id number] 5mL Take 5 mL by mouth 4 (four) times daily as needed for Congestion /Allergies . [facility] bromphenira mine-pseudo ephedrine-D M (BROMFED DM) 2-30-10 mg/5 mL syrup 2021-02 00:00: 00 Yes [id number] 5mL Take 5 mL by mouth 4 (four) times daily as needed for Congestion /Allergies . [facility] bromphenira mine-pseudo ephedrine-D M (BROMFED DM) 2-30-10 mg/5 mL syrup 2021-02 00:00: 00 Yes [id number] 5mL Take 5 mL by mouth 4 (four) times daily as needed for Congestion /Allergies . [facility] bromphenira mine-pseudo ephedrine-D M (BROMFED DM) 2-30-10 mg/5 mL syrup 2021-02 00:00: 00 Yes [id number] 5mL Take 5 mL by mouth 4 (four) times daily as needed for Congestion /Allergies . [facility] bromphenira mine-pseudo ephedrine-D M (BROMFED DM) 2-30-10 mg/5 mL syrup 2021-02 00:00: 00 Yes [id number] 5mL Take 5 mL by mouth 4 (four) times daily as needed for Congestion /Allergies . [facility] bromphenira mine-pseudo ephedrine-D M (BROMFED DM) 2-30-10 mg/5 mL syrup 2021-02 00:00: 00 Yes [id number] 5mL Take 5 mL by mouth 4 (four) times daily as needed for Congestion /Allergies . [facility] bromphenira mine-pseudo ephedrine-D M (BROMFED DM) 2-30-10 mg/5 mL syrup 2021-02 00:00: 00 Yes [id number] 5mL Take 5 mL by mouth 4 (four) times daily as needed for Congestion /Allergies . [facility] bromphenira mine-pseudo ephedrine-D M (BROMFED DM) 2-30-10 mg/5 mL syrup 2021-02 00:00: 00 Yes [id number] 5mL Take 5 mL by mouth 4 (four) times daily as needed for Congestion /Allergies . [facility] bromphenira mine-pseudo ephedrine-D M (BROMFED DM) 2-30-10 mg/5 mL syrup 2021-02 00:00: 00 Yes [id number] 5mL Take 5 mL by mouth 4 (four) times daily as needed for Congestion /Allergies . [facility] bromphenira mine-pseudo ephedrine-D M (BROMFED DM) 2-30-10 mg/5 mL syrup 2021-02 00:00: 00 Yes [id number] 5mL Take 5 mL by mouth 4 (four) times daily as needed for Congestion /Allergies . [facility] bromphenira mine-pseudo ephedrine-D M (BROMFED DM) 2-30-10 mg/5 mL syrup 2021-02 00:00: 00 Yes [id number] 5mL Take 5 mL by mouth 4 (four) times daily as needed for Congestion /Allergies . [facility] bromphenira mine-pseudo ephedrine-D M (BROMFED DM) 2-30-10 mg/5 mL syrup 2021-02 00:00: 00 Yes [id number] 5mL Take 5 mL by mouth 4 (four) times daily as needed for Congestion /Allergies . [facility] bromphenira mine-pseudo ephedrine-D M (BROMFED DM) 2-30-10 mg/5 mL syrup 2021-02 00:00: 00 Yes [id number] 5mL Take 5 mL by mouth 4 (four) times daily as needed for Congestion /Allergies . [facility] bromphenira mine-pseudo ephedrine-D M (BROMFED DM) 2-30-10 mg/5 mL syrup 2021-02 00:00: 00 Yes [id number] 5mL Take 5 mL by mouth 4 (four) times daily as needed for Congestion /Allergies . [facility] bromphenira mine-pseudo ephedrine-D M (BROMFED DM) 2-30-10 mg/5 mL syrup 2021-02 00:00: 00 Yes [id number] 5mL Take 5 mL by mouth 4 (four) times daily as needed for Congestion /Allergies . [facility] bromphenira mine-pseudo ephedrine-D M (BROMFED DM) 2-30-10 mg/5 mL syrup 2021-02 00:00: 00 Yes [id number] 5mL Take 5 mL by mouth 4 (four) times daily as needed for Congestion /Allergies . [facility] bromphenira mine-pseudo ephedrine-D M (BROMFED DM) 2-30-10 mg/5 mL syrup 2021-02 00:00: 00 Yes [id number] 5mL Take 5 mL by mouth 4 (four) times daily as needed for Congestion /Allergies . [facility] bromphenira mine-pseudo ephedrine-D M (BROMFED DM) 2-30-10 mg/5 mL syrup 2021-02 00:00: 00 Yes [id number] 5mL Take 5 mL by mouth 4 (four) times daily as needed for Congestion /Allergies . [facility] bromphenira mine-pseudo ephedrine-D M (BROMFED DM) 2-30-10 mg/5 mL syrup 2021-02 00:00: 00 Yes [id number] 5mL Take 5 mL by mouth 4 (four) times daily as needed for Congestion /Allergies . [facility] bromphenira mine-pseudo ephedrine-D M (BROMFED DM) 2-30-10 mg/5 mL syrup 2021-02 00:00: 00 Yes [id number] 5mL Take 5 mL by mouth 4 (four) times daily as needed for Congestion /Allergies . [facility] bromphenira mine-pseudo ephedrine-D M (BROMFED DM) 2-30-10 mg/5 mL syrup 2021-02 00:00: 00 Yes [id number] 5mL Take 5 mL by mouth 4 (four) times daily as needed for Congestion /Allergies . [facility] bromphenira mine-pseudo ephedrine-D M (BROMFED DM) 2-30-10 mg/5 mL syrup 2021-02 00:00: 00 Yes [id number] 5mL Take 5 mL by mouth 4 (four) times daily as needed for Congestion /Allergies . [facility] bromphenira mine-pseudo ephedrine-D M (BROMFED DM) 2-30-10 mg/5 mL syrup 2021-02 00:00: 00 Yes [id number] 5mL Take 5 mL by mouth 4 (four) times daily as needed for Congestion /Allergies . [facility] bromphenira mine-pseudo ephedrine-D M (BROMFED DM) 2-30-10 mg/5 mL syrup 2021-02 00:00: 00 Yes [id number] 5mL Take 5 mL by mouth 4 (four) times daily as needed for Congestion /Allergies . [facility] bromphenira mine-pseudo ephedrine-D M (BROMFED DM) 2-30-10 mg/5 mL syrup 2021-02 00:00: 00 Yes [id number] 5mL Take 5 mL by mouth 4 (four) times daily as needed for Congestion /Allergies . [facility] bromphenira mine-pseudo ephedrine-D M (BROMFED DM) 2-30-10 mg/5 mL syrup 2021-02 00:00: 00 Yes [id number] 5mL Take 5 mL by mouth 4 (four) times daily as needed for Congestion /Allergies . [facility] bromphenira mine-pseudo ephedrine-D M (BROMFED DM) 2-30-10 mg/5 mL syrup 2021-02 00:00: 00 Yes [id number] 5mL Take 5 mL by mouth 4 (four) times daily as needed for Congestion /Allergies . [facility] bromphenira mine-pseudo ephedrine-D M (BROMFED DM) 2-30-10 mg/5 mL syrup 2021-02 00:00: 00 Yes [id number] 5mL Take 5 mL by mouth 4 (four) times daily as needed for Congestion /Allergies . [facility] bromphenira mine-pseudo ephedrine-D M (BROMFED DM) 2-30-10 mg/5 mL syrup 2021-02 00:00: 00 Yes [id number] 5mL Take 5 mL by mouth 4 (four) times daily as needed for Congestion /Allergies . [facility] bromphenira mine-pseudo ephedrine-D M (BROMFED DM) 2-30-10 mg/5 mL syrup 2021-02 00:00: 00 Yes [id number] 5mL Take 5 mL by mouth 4 (four) times daily as needed for Congestion /Allergies . [facility] bromphenira mine-pseudo ephedrine-D M (BROMFED DM) 2-30-10 mg/5 mL syrup 2021-02 00:00: 00 Yes [id number] 5mL Take 5 mL by mouth 4 (four) times daily as needed for Congestion /Allergies . [facility] bromphenira mine-pseudo ephedrine-D M (BROMFED DM) 2-30-10 mg/5 mL syrup 2021-02 00:00: 00 Yes [id number] 5mL Take 5 mL by mouth 4 (four) times daily as needed for Congestion /Allergies . [facility] bromphenira mine-pseudo ephedrine-D M (BROMFED DM) 2-30-10 mg/5 mL syrup 2021-02 00:00: 00 Yes [id number] 5mL Take 5 mL by mouth 4 (four) times daily as needed for Congestion /Allergies . [facility] bromphenira mine-pseudo ephedrine-D M (BROMFED DM) 2-30-10 mg/5 mL syrup 2021-02 00:00: 00 Yes [id number] 5mL Take 5 mL by mouth 4 (four) times daily as needed for Congestion /Allergies . [facility] bromphenira mine-pseudo ephedrine-D M (BROMFED DM) 2-30-10 mg/5 mL syrup 2021-02 00:00: 00 Yes [id number] 5mL Take 5 mL by mouth 4 (four) times daily as needed for Congestion /Allergies . [facility] bromphenira mine-pseudo ephedrine-D M (BROMFED DM) 2-30-10 mg/5 mL syrup 2021-02 00:00: 00 Yes [id number] 5mL Take 5 mL by mouth 4 (four) times daily as needed for Congestion /Allergies . [facility] bromphenira mine-pseudo ephedrine-D M (BROMFED DM) 2-30-10 mg/5 mL syrup 2021-02 00:00: 00 Yes [id number] 5mL Take 5 mL by mouth 4 (four) times daily as needed for Congestion /Allergies . [facility] bromphenira mine-pseudo ephedrine-D M (BROMFED DM) 2-30-10 mg/5 mL syrup 2021-02 00:00: 00 Yes [id number] 5mL Take 5 mL by mouth 4 (four) times daily as needed for Congestion /Allergies . [facility] ondansetron (ZOFRAN-ODT ) disintegrat ing tablet 4 mg 2021-02 15:30: 00 12-14 14:43 :00 No [id number] 4mg [facility] ondansetron (ZOFRAN-ODT ) disintegrat ing tablet 4 mg 2021-02 15:30: 00 12-14 14:43 :00 No [id number] 4mg 4 mg, Oral, ONCE, 1 dose, On Sat12/14/21 at 1030, Routine [facility] bromphenira mine-pseudo ephedrine-D M 2-30-10 mg/5 mL syrup 2021-02 00:00: 00 12-20 05:59 :00 No [id number] 5mL Take 5 mL by mouth 4 (four) times daily as needed for Congestion /Allergies for up to 5 days. [facility] oseltamivir (TAMIFLU) 75 mg capsule 2021-02 00:00: 00 12-20 05:59 :00 No [id number] 75mg Take 1 capsule by mouth in the morning and 1 capsule in the evening. Do all this for 5 days. [facility] bromphenira mine-pseudo ephedrine-D M 2-30-10 mg/5 mL syrup 2021-02 00:00: 00 12-20 05:59 :00 No [id number] 5mL Take 5 mL by mouth 4 (four) times daily as needed for Congestion /Allergies for up to 5 days. [facility] oseltamivir (TAMIFLU) 75 mg capsule 2021-02 00:00: 00 12-20 05:59 :00 No [id number] 75mg Take 1 capsule by mouth in the morning and 1 capsule in the evening. Do all this for 5 days. [facility] oseltamivir (TAMIFLU) 75 mg capsule 2021-02 00:00: 00 12-20 05:59 :00 No [id number] 75mg Take 1 capsule by mouth in the morning and 1 capsule in the evening. Do all this for 5 days. [facility] oseltamivir (TAMIFLU) 75 mg capsule 2021-02 00:00: 00 12-20 05:59 :00 No [id number] 75mg Take 1 capsule by mouth in the morning and 1 capsule in the evening. Do all this for 5 days. [facility] bromphenira mine-pseudo ephedrine-D M 2-30-10 mg/5 mL syrup 2021-02 00:00: 00 12-18 00:00 :00 No [id number] 5mL Take 5 mL by mouth 4 (four) times daily as needed for Congestion /Allergies for up to 5 days. [facility] amoxicillin -clavulanat e (AUGMENTIN) 875-125 mg per tablet 09-17 00:00: 00 09-28 04:59 :00 No [id number] 1{tbl} Take 1 tablet by mouth in the morning and 1 tablet in the evening. Do all this for 10 days. [facility] amoxicillin -clavulanat e (AUGMENTIN) 875-125 mg per tablet 09-17 00:00: 00 09-28 04:59 :00 No [id number] 1{tbl} Take 1 tablet by mouth in the morning and 1 tablet in the evening. Do all this for 10 days. [facility] polymyxin B sulf-trimet hoprim 10,000 unit- 1 mg/mL ophthalmic drops 09-17 00:00: 00 09-25 04:59 :00 No [id number] 1[drp] Place 1 Drop in left eye every 6 (six) hours for 7 days. [facility] polymyxin B sulf-trimet hoprim 10,000 unit- 1 mg/mL ophthalmic drops 09-17 00:00: 00 09-25 04:59 :00 No [id number] 1[drp] Place 1 Drop in left eye every 6 (six) hours for 7 days. [facility] predniSONE 10 mg tablet 09-17 00:00: 00 09-21 04:59 :00 No [id number] 10mg Take 1 tablet by mouth in the morning for 3 days. [facility] predniSONE 10 mg tablet 09-17 00:00: 00 09-21 04:59 :00 No [id number] 10mg Take 1 tablet by mouth in the morning for 3 days. [facility] penicillin g benzathine (BICILLIN L-A) injection 1.2 Million Units 08-23 16:15: 00 08-23 15:10 :00 No [id number] 1.210 [facility] penicillin g benzathine (BICILLIN L-A) injection 1.2 Million Units 08-23 16:15: 08-23 15:10 :00 No [id number] 1.210 1.2 Million Units, Intramuscu lar, ONCE, 1 dose, On Sat08/23/21 at 1115, WILY
Re ason for Anti-Infec tive: Documented Infection< br>Documen manfred Infection Site: HEENT
D uration of Therapy: Other (see Comments) [facility] bromphenira mine-pseudo ephedrine-D M (BROMFED DM) 2-30-10 mg/5 mL syrup 08-23 00:00: 00 Yes [id number] 5mL Take 5 mL by mouth 4 (four) times daily as needed for Congestion /Allergies . [facility] bromphenira mine-pseudo ephedrine-D M (BROMFED DM) 2-30-10 mg/5 mL syrup 08-23 00:00: 00 Yes [id number] 5mL Take 5 mL by mouth 4 (four) times daily as needed for Congestion /Allergies . [facility] bromphenira mine-pseudo ephedrine-D M (BROMFED DM) 2-30-10 mg/5 mL syrup 2021-0 08-23 00:00: 00 Yes [id number] 5mL Take 5 mL by mouth 4 (four) times daily as needed for Congestion /Allergies . [facility] bromphenira mine-pseudo ephedrine-D M (BROMFED DM) 2-30-10 mg/5 mL syrup 0 08-23 00:00: 00 Yes [id number] 5mL Take 5 mL by mouth 4 (four) times daily as needed for Congestion /Allergies . [facility] bromphenira mine-pseudo ephedrine-D M (BROMFED DM) 2-30-10 mg/5 mL syrup 08-23 00:00: 00 12-14 00:00 :00 No [id number] 5mL Take 5 mL by mouth 4 (four) times daily as needed for Congestion /Allergies . [facility] ARIPiprazol e (ABILIFY) 2 mg tablet 05-14 15:45: 41 Yes 2mg Take 2 mg by mouth daily. [facility] ARIPiprazol e (ABILIFY) 2 mg tablet 05-14 15:45: 41 Yes 2mg Take 2 mg by mouth daily. [facility] ARIPiprazol e (ABILIFY) 2 mg tablet 05-14 15:45: 41 Yes 2mg Take 2 mg by mouth daily. [facility] ARIPiprazol e (ABILIFY) 2 mg tablet 0 05-14 15:45: 41 Yes 2mg Take 2 mg by mouth daily. [facility] ARIPiprazol e (ABILIFY) 2 mg tablet 05-14 15:45: 41 Yes 2mg Take 2 mg by mouth daily. [facility] ARIPiprazol e (ABILIFY) 2 mg tablet 0 05-14 15:45: 41 Yes 2mg Take 2 mg by mouth daily. [facility] ARIPiprazol e (ABILIFY) 2 mg tablet 05-14 15:45: 41 Yes 2mg Take 2 mg by mouth daily. [facility] ARIPiprazol e (ABILIFY) 2 mg tablet 05-14 15:45: 41 Yes 2mg Take 2 mg by mouth daily. [facility] ARIPiprazol e (ABILIFY) 2 mg tablet 05-14 15:45: 41 Yes 2mg Take 2 mg by mouth daily. [facility] ARIPiprazol e (ABILIFY) 2 mg tablet 05-14 15:45: 41 Yes 2mg Take 2 mg by mouth daily. [facility] ARIPiprazol e (ABILIFY) 2 mg tablet 05-14 15:45: 41 Yes 2mg Take 2 mg by mouth daily. [facility] ARIPiprazol e (ABILIFY) 2 mg tablet 05-14 15:45: 41 Yes 2mg Take 2 mg by mouth daily. [facility] ARIPiprazol e (ABILIFY) 2 mg tablet 05-14 15:45: 41 Yes 2mg Take 2 mg by mouth daily. [facility] ARIPiprazol e (ABILIFY) 2 mg tablet 05-14 15:45: 41 Yes 2mg Take 2 mg by mouth daily. [facility] ARIPiprazol e (ABILIFY) 2 mg tablet 05-14 15:45: 41 Yes 2mg Take 2 mg by mouth daily. [facility] ARIPiprazol e (ABILIFY) 2 mg tablet 05-14 15:45: 41 Yes 2mg Take 2 mg by mouth daily. [facility] ARIPiprazol e (ABILIFY) 2 mg tablet 05-14 15:45: 41 Yes 2mg Take 2 mg by mouth daily. [facility] ARIPiprazol e (ABILIFY) 2 mg tablet 05-14 15:45: 41 Yes 2mg Take 2 mg by mouth daily. [facility] ARIPiprazol e (ABILIFY) 2 mg tablet 05-14 15:45: 41 Yes 2mg Take 2 mg by mouth daily. [facility] ARIPiprazol e (ABILIFY) 2 mg tablet 05-14 15:45: 41 Yes 2mg Take 2 mg by mouth daily. [facility] ARIPiprazol e (ABILIFY) 2 mg tablet 05-14 15:45: 41 Yes 2mg Take 2 mg by mouth daily. [facility] ARIPiprazol e (ABILIFY) 2 mg tablet 05-14 15:45: 41 Yes 2mg Take 2 mg by mouth daily. [facility] ARIPiprazol e (ABILIFY) 2 mg tablet 05-14 15:45: 41 Yes 2mg Take 2 mg by mouth daily. [facility] ARIPiprazol e (ABILIFY) 2 mg tablet 05-14 15:45: 41 Yes 2mg Take 2 mg by mouth daily. [facility] ARIPiprazol e (ABILIFY) 2 mg tablet 05-14 15:45: 41 Yes 2mg Take 2 mg by mouth daily. [facility] ARIPiprazol e (ABILIFY) 2 mg tablet 05-14 15:45: 41 Yes 2mg Take 2 mg by mouth daily. [facility] ARIPiprazol e (ABILIFY) 2 mg tablet 05-14 15:45: 41 Yes 2mg Take 2 mg by mouth daily. [facility] ARIPiprazol e (ABILIFY) 2 mg tablet 05-14 15:45: 41 Yes 2mg Take 2 mg by mouth daily. [facility] ARIPiprazol e (ABILIFY) 2 mg tablet 05-14 15:45: 41 Yes 2mg Take 2 mg by mouth daily. [facility] ARIPiprazol e (ABILIFY) 2 mg tablet 0 05-14 15:45: 41 Yes 2mg Take 2 mg by mouth daily. [facility] ARIPiprazol e (ABILIFY) 2 mg tablet 05-14 15:45: 41 Yes 2mg Take 2 mg by mouth daily. [facility] ARIPiprazol e (ABILIFY) 2 mg tablet 05-14 15:45: 41 Yes 2mg Take 2 mg by mouth daily. [facility] ARIPiprazol e (ABILIFY) 2 mg tablet 05-14 15:45: 41 Yes 2mg Take 2 mg by mouth daily. [facility] ARIPiprazol e (ABILIFY) 2 mg tablet 05-14 15:45: 41 Yes 2mg Take 2 mg by mouth daily. [facility] ARIPiprazol e (ABILIFY) 2 mg tablet 05-14 15:45: 41 Yes 2mg Take 2 mg by mouth daily. [facility] ARIPiprazol e (ABILIFY) 2 mg tablet 05-14 15:45: 41 Yes 2mg Take 2 mg by mouth daily. [facility] ARIPiprazol e (ABILIFY) 2 mg tablet 0 05-14 15:45: 41 Yes 2mg Take 2 mg by mouth daily. [facility] ARIPiprazol e (ABILIFY) 2 mg tablet 0 05-14 15:45: 41 Yes 2mg Take 2 mg by mouth daily. [facility] ARIPiprazol e (ABILIFY) 2 mg tablet 05-14 15:45: 41 Yes 2mg Take 2 mg by mouth daily. [facility] ARIPiprazol e (ABILIFY) 2 mg tablet 0 05-14 15:45: 41 Yes 2mg Take 2 mg by mouth daily. [facility] ARIPiprazol e (ABILIFY) 2 mg tablet 05-14 15:45: 41 Yes 2mg Take 2 mg by mouth daily. [facility] ARIPiprazol e (ABILIFY) 2 mg tablet 05-14 15:45: 41 Yes 2mg Take 2 mg by mouth daily. [facility] ARIPiprazol e (ABILIFY) 2 mg tablet 05-14 15:45: 41 Yes 2mg Take 2 mg by mouth daily. [facility] ARIPiprazol e (ABILIFY) 2 mg tablet 05-14 15:45: 41 Yes 2mg Take 2 mg by mouth daily. [facility] ARIPiprazol e (ABILIFY) 2 mg tablet 05-14 15:45: 41 Yes 2mg Take 2 mg by mouth daily. [facility] ARIPiprazol e (ABILIFY) 2 mg tablet 05-14 15:45: 41 Yes 2mg Take 2 mg by mouth daily. [facility] ARIPiprazol e (ABILIFY) 2 mg tablet 05-14 15:45: 41 Yes 2mg Take 2 mg by mouth daily. [facility] ARIPiprazol e (ABILIFY) 2 mg tablet 05-14 15:45: 41 Yes 2mg Take 2 mg by mouth daily. [facility] ARIPiprazol e (ABILIFY) 2 mg tablet 05-14 15:45: 41 Yes 2mg Take 2 mg by mouth daily. [facility] aluminum chloride (DRYSOL) 20 % external solution 05-26 00:00: 00 Yes [id number] Apply to affected areas on palms nightly as tolerated for one week then decrease to every other night [facility] aluminum chloride (DRYSOL) 20 % external solution 05-26 00:00: 00 Yes [id number] Apply to affected areas on palms nightly as tolerated for one week then decrease to every other night [facility] aluminum chloride (DRYSOL) 20 % external solution 15 00:00: 00 Yes [id number] Apply to affected areas on palms nightly as tolerated for one week then decrease to every other night [facility] aluminum chloride (DRYSOL) 20 % external solution 0 15 00:00: 00 Yes [id number] Apply to affected areas on palms nightly as tolerated for one week then decrease to every other night [facility] aluminum chloride (DRYSOL) 20 % external solution 05-26 00:00: 00 Yes [id number] Apply to affected areas on palms nightly as tolerated for one week then decrease to every other night [facility] aluminum chloride (DRYSOL) 20 % external solution 05-26 00:00: 00 Yes [id number] Apply to affected areas on palms nightly as tolerated for one week then decrease to every other night [facility] aluminum chloride (DRYSOL) 20 % external solution 05-26 00:00: 00 Yes [id number] Apply to affected areas on palms nightly as tolerated for one week then decrease to every other night [facility] aluminum chloride (DRYSOL) 20 % external solution 05-26 00:00: 00 Yes [id number] Apply to affected areas on palms nightly as tolerated for one week then decrease to every other night [facility] aluminum chloride (DRYSOL) 20 % external solution 15 00:00: 00 Yes [id number] Apply to affected areas on palms nightly as tolerated for one week then decrease to every other night [facility] aluminum chloride (DRYSOL) 20 % external solution 0 15 00:00: 00 Yes [id number] Apply to affected areas on palms nightly as tolerated for one week then decrease to every other night [facility] aluminum chloride (DRYSOL) 20 % external solution 0 15 00:00: 00 Yes [id number] Apply to affected areas on palms nightly as tolerated for one week then decrease to every other night [facility] aluminum chloride (DRYSOL) 20 % external solution 05-26 00:00: 00 Yes [id number] Apply to affected areas on palms nightly as tolerated for one week then decrease to every other night [facility] aluminum chloride (DRYSOL) 20 % external solution 05-26 00:00: 00 Yes [id number] Apply to affected areas on palms nightly as tolerated for one week then decrease to every other night [facility] aluminum chloride (DRYSOL) 20 % external solution 05-26 00:00: 00 Yes [id number] Apply to affected areas on palms nightly as tolerated for one week then decrease to every other night [facility] aluminum chloride (DRYSOL) 20 % external solution 05-26 00:00: 00 Yes [id number] Apply to affected areas on palms nightly as tolerated for one week then decrease to every other night [facility] aluminum chloride (DRYSOL) 20 % external solution 05-26 00:00: 00 Yes [id number] Apply to affected areas on palms nightly as tolerated for one week then decrease to every other night [facility] aluminum chloride (DRYSOL) 20 % external solution 05-26 00:00: 00 Yes [id number] Apply to affected areas on palms nightly as tolerated for one week then decrease to every other night [facility] aluminum chloride (DRYSOL) 20 % external solution 05-26 00:00: 00 Yes [id number] Apply to affected areas on palms nightly as tolerated for one week then decrease to every other night [facility] aluminum chloride (DRYSOL) 20 % external solution 05-26 00:00: 00 Yes [id number] Apply to affected areas on palms nightly as tolerated for one week then decrease to every other night [facility] aluminum chloride (DRYSOL) 20 % external solution 05-26 00:00: 00 Yes [id number] Apply to affected areas on palms nightly as tolerated for one week then decrease to every other night [facility] aluminum chloride (DRYSOL) 20 % external solution 05-26 00:00: 00 Yes [id number] Apply to affected areas on palms nightly as tolerated for one week then decrease to every other night [facility] aluminum chloride (DRYSOL) 20 % external solution 0 15 00:00: 00 Yes [id number] Apply to affected areas on palms nightly as tolerated for one week then decrease to every other night [facility] aluminum chloride (DRYSOL) 20 % external solution 15 00:00: 00 Yes [id number] Apply to affected areas on palms nightly as tolerated for one week then decrease to every other night [facility] aluminum chloride (DRYSOL) 20 % external solution 0 15 00:00: 00 Yes [id number] Apply to affected areas on palms nightly as tolerated for one week then decrease to every other night [facility] aluminum chloride (DRYSOL) 20 % external solution 15 00:00: 00 Yes [id number] Apply to affected areas on palms nightly as tolerated for one week then decrease to every other night [facility] aluminum chloride (DRYSOL) 20 % external solution 0 15 00:00: 00 Yes [id number] Apply to affected areas on palms nightly as tolerated for one week then decrease to every other night [facility] aluminum chloride (DRYSOL) 20 % external solution 0 15 00:00: 00 Yes [id number] Apply to affected areas on palms nightly as tolerated for one week then decrease to every other night [facility] aluminum chloride (DRYSOL) 20 % external solution 0 15 00:00: 00 Yes [id number] Apply to affected areas on palms nightly as tolerated for one week then decrease to every other night [facility] aluminum chloride (DRYSOL) 20 % external solution 0 15 00:00: 00 Yes [id number] Apply to affected areas on palms nightly as tolerated for one week then decrease to every other night [facility] aluminum chloride (DRYSOL) 20 % external solution 0 15 00:00: 00 Yes [id number] Apply to affected areas on palms nightly as tolerated for one week then decrease to every other night [facility] aluminum chloride (DRYSOL) 20 % external solution 15 00:00: 00 Yes [id number] Apply to affected areas on palms nightly as tolerated for one week then decrease to every other night [facility] aluminum chloride (DRYSOL) 20 % external solution 15 00:00: 00 Yes [id number] Apply to affected areas on palms nightly as tolerated for one week then decrease to every other night [facility] aluminum chloride (DRYSOL) 20 % external solution 15 00:00: 00 Yes [id number] Apply to affected areas on palms nightly as tolerated for one week then decrease to every other night [facility] aluminum chloride (DRYSOL) 20 % external solution 15 00:00: 00 Yes [id number] Apply to affected areas on palms nightly as tolerated for one week then decrease to every other night [facility] aluminum chloride (DRYSOL) 20 % external solution 15 00:00: 00 Yes [id number] Apply to affected areas on palms nightly as tolerated for one week then decrease to every other night [facility] aluminum chloride (DRYSOL) 20 % external solution 15 00:00: 00 Yes [id number] Apply to affected areas on palms nightly as tolerated for one week then decrease to every other night [facility] aluminum chloride (DRYSOL) 20 % external solution 15 00:00: 00 Yes [id number] Apply to affected areas on palms nightly as tolerated for one week then decrease to every other night [facility] aluminum chloride (DRYSOL) 20 % external solution 15 00:00: 00 Yes [id number] Apply to affected areas on palms nightly as tolerated for one week then decrease to every other night [facility] aluminum chloride (DRYSOL) 20 % external solution 0 15 00:00: 00 Yes [id number] Apply to affected areas on palms nightly as tolerated for one week then decrease to every other night [facility] aluminum chloride (DRYSOL) 20 % external solution 0 15 00:00: 00 Yes [id number] Apply to affected areas on palms nightly as tolerated for one week then decrease to every other night [facility] aluminum chloride (DRYSOL) 20 % external solution 0 15 00:00: 00 Yes [id number] Apply to affected areas on palms nightly as tolerated for one week then decrease to every other night [facility] aluminum chloride (DRYSOL) 20 % external solution 0 15 00:00: 00 Yes [id number] Apply to affected areas on palms nightly as tolerated for one week then decrease to every other night [facility] aluminum chloride (DRYSOL) 20 % external solution 15 00:00: 00 Yes [id number] Apply to affected areas on palms nightly as tolerated for one week then decrease to every other night [facility] aluminum chloride (DRYSOL) 20 % external solution 15 00:00: 00 Yes [id number] Apply to affected areas on palms nightly as tolerated for one week then decrease to every other night [facility] aluminum chloride (DRYSOL) 20 % external solution 0 15 00:00: 00 Yes [id number] Apply to affected areas on palms nightly as tolerated for one week then decrease to every other night [facility] aluminum chloride (DRYSOL) 20 % external solution 0 15 00:00: 00 Yes [id number] Apply to affected areas on palms nightly as tolerated for one week then decrease to every other night [facility] aluminum chloride (DRYSOL) 20 % external solution 0 15 00:00: 00 Yes [id number] Apply to affected areas on palms nightly as tolerated for one week then decrease to every other night [facility] aluminum chloride (DRYSOL) 20 % external solution 0 15 00:00: 00 Yes [id number] Apply to affected areas on palms nightly as tolerated for one week then decrease to every other night [facility] aluminum chloride (DRYSOL) 20 % external solution 2019-0 4-15 00:00: 00 Yes [id number] Apply to affected areas on palms nightly as tolerated for one week then decrease to every other night [facility] clindamycin -benzoyl peroxide gel 0 2-20 00:00: 00 Yes Apply to area(s) every morning. [facility] 2-20 00:00: 00 Yes 100mg Take 1 capsule by mouth 2 (two) times daily. [facility] clindamycin -benzoyl peroxide gel 0 2-20 00:00: 00 Yes Apply to area(s) every morning. [facility] 0 2-20 00:00: 00 Yes 100mg Take 1 capsule by mouth 2 (two) times daily. [facility] clindamycin -benzoyl peroxide gel 0 220 00:00: 00 Yes Apply to area(s) every morning. [facility] 0 220 00:00: 00 Yes 100mg Take 1 capsule by mouth 2 (two) times daily. [facility] clindamycin -benzoyl peroxide gel 0 220 00:00: 00 Yes Apply to area(s) every morning. [facility] 0 220 00:00: 00 Yes 100mg Take 1 capsule by mouth 2 (two) times daily. [facility] clindamycin -benzoyl peroxide gel 0 2-20 00:00: 00 Yes Apply to area(s) every morning. [facility] 0 2-20 00:00: 00 Yes 100mg Take 1 capsule by mouth 2 (two) times daily. [facility] clindamycin -benzoyl peroxide gel 0 2-20 00:00: 00 Yes Apply to area(s) every morning. [facility] 0 2-20 00:00: 00 Yes 100mg Take 1 capsule by mouth 2 (two) times daily. [facility] clindamycin -benzoyl peroxide gel 2018-0 2-20 00:00: 00 Yes Apply to area(s) every morning. [facility] 0 220 00:00: 00 Yes 100mg Take 1 capsule by mouth 2 (two) times daily. [facility] clindamycin -benzoyl peroxide gel 0 2-20 00:00: 00 Yes Apply to area(s) every morning. [facility] 0 220 00:00: 00 Yes 100mg Take 1 capsule by mouth 2 (two) times daily. [facility] clindamycin -benzoyl peroxide gel 0 220 00:00: 00 Yes Apply to area(s) every morning. [facility] 0 220 00:00: 00 Yes 100mg Take 1 capsule by mouth 2 (two) times daily. [facility] clindamycin -benzoyl peroxide gel 2018-0 220 00:00: 00 Yes Apply to area(s) every morning. [facility] 0 220 00:00: 00 Yes 100mg Take 1 capsule by mouth 2 (two) times daily. [facility] clindamycin -benzoyl peroxide gel 0 220 00:00: 00 Yes Apply to area(s) every morning. [facility] doxycycline 100 mg capsule 0 220 00:00: 00 Yes 100mg Take 1 capsule by mouth 2 (two) times daily. [facility] clindamycin -benzoyl peroxide gel 0 220 00:00: 00 Yes Apply to area(s) every morning. [facility] doxycycline 100 mg capsule 0 220 00:00: 00 Yes 100mg Take 1 capsule by mouth 2 (two) times daily. [facility] cl[facility]amycin -benzoyl peroxide gel 2018-0 220 00:00: 00 Yes Apply to area(s) every morning. [facility] doxycycline 100 mg capsule [id number] 2-20 00:00: 00 Yes 100mg Take 1 capsule by mouth 2 (two) times daily. [facility] clindamycin -benzoyl peroxide gel 2019-0 2-20 00:00: 00 Yes Apply to area(s) every morning. [facility] doxycycline 100 mg capsule [id number] 220 00:00: 00 Yes 100mg Take 1 capsule by mouth 2 (two) times daily. [facility] clindamycin -benzoyl peroxide gel 0 220 00:00: 00 Yes Apply to area(s) every morning. [facility] doxycycline 100 mg capsule 0 220 00:00: 00 Yes 100mg Take 1 capsule by mouth 2 (two) times daily. [facility] clindamycin -benzoyl peroxide gel 0 220 00:00: 00 Yes Apply to area(s) every morning. [facility] 0 220 00:00: 00 Yes 100mg Take 1 capsule by mouth 2 (two) times daily. [facility] clindamycin -benzoyl peroxide gel 0 220 00:00: 00 Yes Apply to area(s) every morning. [facility] doxycycline 100 mg capsule 0 220 00:00: 00 Yes 100mg Take 1 capsule by mouth 2 (two) times daily. [facility] clindamycin -benzoyl peroxide gel 0 220 00:00: 00 Yes Apply to area(s) every morning. [facility] 0 220 00:00: 00 Yes 100mg Take 1 capsule by mouth 2 (two) times daily. [facility] clindamycin -benzoyl peroxide gel 0 220 00:00: 00 Yes Apply to area(s) every morning. [facility] 0 220 00:00: 00 Yes 100mg Take 1 capsule by mouth 2 (two) times daily. [facility] clindamycin -benzoyl peroxide gel 0 220 00:00: 00 Yes Apply to area(s) every morning. [facility] 0 220 00:00: 00 Yes 100mg Take 1 capsule by mouth 2 (two) times daily. [facility] clindamycin -benzoyl peroxide gel 2019-0 220 00:00: 00 Yes Apply to area(s) every morning. [facility] doxycycline 100 mg capsule 0 2-20 00:00: 00 Yes 100mg Take 1 capsule by mouth 2 (two) times daily. [facility] clindamycin -benzoyl peroxide gel 2018-0 2-20 00:00: 00 Yes Apply to area(s) every morning. [facility] doxycycline 100 mg capsule 0 220 00:00: 00 Yes 100mg Take 1 capsule by mouth 2 (two) times daily. [facility] clindamycin -benzoyl peroxide gel 2018-0 220 00:00: 00 Yes Apply to area(s) every morning. [facility] doxycycline 100 mg capsule 0 220 00:00: 00 Yes 100mg Take 1 capsule by mouth 2 (two) times daily. [facility] clindamycin -benzoyl peroxide gel 2018-0 220 00:00: 00 Yes Apply to area(s) every morning. [facility] doxycycline 100 mg capsule 0 220 00:00: 00 Yes 100mg Take 1 capsule by mouth 2 (two) times daily. [facility] clindamycin -benzoyl peroxide gel 0 220 00:00: 00 Yes Apply to area(s) every morning. [facility] doxycycline 100 mg capsule 0 220 00:00: 00 Yes 100mg Take 1 capsule by mouth 2 (two) times daily. [facility] clindamycin -benzoyl peroxide gel 2018-0 220 00:00: 00 Yes Apply to area(s) every morning. [facility] doxycycline 100 mg capsule [id number] 2-20 00:00: 00 Yes 100mg Take 1 capsule by mouth 2 (two) times daily. [facility] clindamycin -benzoyl peroxide gel 2018-0 2-20 00:00: 00 Yes Apply to area(s) every morning. [facility] doxycycline 100 mg capsule 2019-0 2-20 00:00: 00 Yes 100mg Take 1 capsule by mouth 2 (two) times daily. [facility] clindamycin -benzoyl peroxide gel 2019-0 220 00:00: 00 Yes Apply to area(s) every morning. [facility] doxycycline 100 mg capsule 0 2-20 00:00: 00 Yes 100mg Take 1 capsule by mouth 2 (two) times daily. [facility] clindamycin -benzoyl peroxide gel 20190 2-20 00:00: 00 Yes Apply to area(s) every morning. [facility] 0 2-20 00:00: 00 Yes 100mg Take 1 capsule by mouth 2 (two) times daily. [facility] clindamycin -benzoyl peroxide gel 0 220 00:00: 00 Yes Apply to area(s) every morning. [facility] doxycycline 100 mg capsule 0 220 00:00: 00 Yes 100mg Take 1 capsule by mouth 2 (two) times daily. [facility] clindamycin -benzoyl peroxide gel 2018-0 220 00:00: 00 Yes Apply to area(s) every morning. [facility] doxycycline 100 mg capsule 0 220 00:00: 00 Yes 100mg Take 1 capsule by mouth 2 (two) times daily. [facility] clindamycin -benzoyl peroxide gel 2018-0 220 00:00: 00 Yes Apply to area(s) every morning. [facility] doxycycline 100 mg capsule 0 220 00:00: 00 Yes 100mg Take 1 capsule by mouth 2 (two) times daily. [facility] clindamycin -benzoyl peroxide gel 0 220 00:00: 00 Yes Apply to area(s) every morning. [facility] do[facility] mg capsule [id number] 2-20 00:00: 00 Yes 100mg Take 1 capsule by mouth 2 (two) times daily. [facility] clindamycin -benzoyl peroxide gel 2019-0 2-20 00:00: 00 Yes Apply to area(s) every morning. [facility] mg capsule 2019-0 2-20 00:00: 00 Yes 100mg Take 1 capsule by mouth 2 (two) times daily. [facility] clindamycin -benzoyl peroxide gel 20190 220 00:00: 00 Yes Apply to area(s) every morning. [facility] 0 220 00:00: 00 Yes 100mg Take 1 capsule by mouth 2 (two) times daily. [facility] clindamycin -benzoyl peroxide gel 2018-0 2-20 00:00: 00 Yes Apply to area(s) every morning. [facility] mg capsule 0 220 00:00: 00 Yes 100mg Take 1 capsule by mouth 2 (two) times daily. [facility] clindamycin -benzoyl peroxide gel 0 220 00:00: 00 Yes Apply to area(s) every morning. [facility] mg capsule 0 220 00:00: 00 Yes 100mg Take 1 capsule by mouth 2 (two) times daily. [facility] clindamycin -benzoyl peroxide gel 0 220 00:00: 00 Yes Apply to area(s) every morning. [facility] doxycycline 100 mg capsule 0 220 00:00: 00 Yes 100mg Take 1 capsule by mouth 2 (two) times daily. [facility] clindamycin -benzoyl peroxide gel 0 220 00:00: 00 Yes Apply to area(s) every morning. [facility] capsule 0 220 00:00: 00 Yes 100mg Take 1 capsule by mouth 2 (two) times daily. [facility] clindamycin -benzoyl peroxide gel 0 220 00:00: 00 Yes Apply to area(s) every morning. [facility] 0 220 00:00: 00 Yes 100mg Take 1 capsule by mouth 2 (two) times daily. [facility] clindamycin -benzoyl peroxide gel 2019-0 2-20 00:00: 00 Yes Apply to area(s) every morning. [facility] capsule 0 2-20 00:00: 00 Yes 100mg Take 1 capsule by mouth 2 (two) times daily. [facility] clindamycin -benzoyl peroxide gel 2019-0 2-20 00:00: 00 Yes Apply to area(s) every morning. [facility] 0 220 00:00: 00 Yes 100mg Take 1 capsule by mouth 2 (two) times daily. [facility] clindamycin -benzoyl peroxide gel 0 2-20 00:00: 00 Yes Apply to area(s) every morning. [facility] 0 220 00:00: 00 Yes 100mg Take 1 capsule by mouth 2 (two) times daily. [facility] clindamycin -benzoyl peroxide gel 0 220 00:00: 00 Yes Apply to area(s) every morning. [facility] doxycycline 100 mg capsule 0 220 00:00: 00 Yes 100mg Take 1 capsule by mouth 2 (two) times daily. [facility] clindamycin -benzoyl peroxide gel 0 220 00:00: 00 Yes Apply to area(s) every morning. [facility] doxycycline 100 mg capsule 0 220 00:00: 00 Yes 100mg Take 1 capsule by mouth 2 (two) times daily. [facility] clindamycin -benzoyl peroxide gel 0 220 00:00: 00 Yes Apply to area(s) every morning. [facility] doxycycline 100 mg capsule 0 220 00:00: 00 Yes 100mg Take 1 capsule by mouth 2 (two) times daily. [facility] clindamycin -benzoyl peroxide gel 2019-0 2-20 00:00: 00 Yes Apply to area(s) every morning. [facility] doxycycline 100 mg capsule 0 2-20 00:00: 00 Yes 100mg Take 1 capsule by mouth 2 (two) times daily. [facility] clindamycin -benzoyl peroxide gel 2019-0 2-20 00:00: 00 Yes Apply to area(s) every morning. [facility] doxycycline 100 mg capsule 04-02 00:00: 00 Yes 100mg Take 1 capsule by mouth 2 (two) times daily. [facility] clindamycin -benzoyl peroxide gel 04-02 00:00: 00 Yes Apply to area(s) every morning. [facility] doxycycline 100 mg capsule 04-02 00:00: 00 Yes 100mg Take 1 capsule by mouth 2 (two) times daily. [facility] FLUoxetine 20 mg capsule 2017-02 00:00: 00 Yes [facility] FLUoxetine 20 mg capsule 2017-02 00:00: 00 Yes [facility] FLUoxetine 20 mg capsule 2017-02 00:00: 00 Yes [facility] FLUoxetine 20 mg capsule 2017-02 00:00: 00 Yes [facility] FLUoxetine 20 mg capsule 2017-02 00:00: 00 Yes [facility] FLUoxetine 20 mg capsule 2017-02 00:00: 00 Yes [facility] FLUoxetine 20 mg capsule 2017-02 00:00: 00 Yes [facility] FLUoxetine 20 mg capsule 2017-02 00:00: 00 Yes [facility] FLUoxetine 20 mg capsule 2017-02 00:00: 00 Yes [facility] FLUoxetine 20 mg capsule 2017-02 00:00: 00 Yes [facility] FLUoxetine 20 mg capsule 2017-02 00:00: 00 Yes [facility] FLUoxetine 20 mg capsule 2017-02 00:00: 00 Yes [facility] FLUoxetine 20 mg capsule 2017-02 2 00:00: 00 Yes [facility] FLUoxetine 20 mg capsule 2017-02 00:00: 00 Yes [facility] FLUoxetine 20 mg capsule 2017-02 2 00:00: 00 Yes [facility] FLUoxetine 20 mg capsule 2017-02 2 00:00: 00 Yes [facility] FLUoxetine 20 mg capsule 2017-02 2 00:00: 00 Yes [facility] FLUoxetine 20 mg capsule 2017- 2- 00:00: 00 Yes [facility] FLUoxetine 20 mg capsule 2017- 2- 00:00: 00 Yes [facility] FLUoxetine 20 mg capsule 2017-02 2- 00:00: 00 Yes [facility] FLUoxetine 20 mg capsule 2017-02 2- 00:00: 00 Yes [facility] FLUoxetine 20 mg capsule 2017- 2- 00:00: 00 Yes [facility] FLUoxetine 20 mg capsule 2017-02 2 00:00: 00 Yes [facility] FLUoxetine 20 mg capsule 2017-02 2 00:00: 00 Yes [facility] FLUoxetine 20 mg capsule 2017- 2 00:00: 00 Yes [facility] FLUoxetine 20 mg capsule 2017-02 2 00:00: 00 Yes [facility] FLUoxetine 20 mg capsule 2017-02 2 00:00: 00 Yes [facility] FLUoxetine 20 mg capsule 2017-02 2 00:00: 00 Yes [facility] FLUoxetine 20 mg capsule 2017-02 2 00:00: 00 Yes [facility] FLUoxetine 20 mg capsule 2017- 2 00:00: 00 Yes [facility] FLUoxetine 20 mg capsule 2017-02 2 00:00: 00 Yes [facility] FLUoxetine 20 mg capsule 2017-02 2 00:00: 00 Yes [facility] FLUoxetine 20 mg capsule 2017-02 2- 00:00: 00 Yes [facility] FLUoxetine 20 mg capsule 2017-02 2- 00:00: 00 Yes [facility] FLUoxetine 20 mg capsule 2017-02 2- 00:00: 00 Yes [facility] FLUoxetine 20 mg capsule 2017- 2- 00:00: 00 Yes [facility] FLUoxetine 20 mg capsule 2017-02 2- 00:00: 00 Yes [facility] FLUoxetine 20 mg capsule 2017- 2- 00:00: 00 Yes [facility] FLUoxetine 20 mg capsule 2017- 2- 00:00: 00 Yes [facility] FLUoxetine 20 mg capsule 2017-02 2- 00:00: 00 Yes [facility] FLUoxetine 20 mg capsule 2017-02 2- 00:00: 00 Yes [facility] FLUoxetine 20 mg capsule 2017-02 2 00:00: 00 Yes [facility] FLUoxetine 20 mg capsule 2017-02 2- 00:00: 00 Yes [facility] FLUoxetine 20 mg capsule 2017-02 2- 00:00: 00 Yes [facility] FLUoxetine 20 mg capsule 2017-02 2 00:00: 00 Yes [facility] FLUoxetine 20 mg capsule 2017-02 2 00:00: 00 Yes [facility] FLUoxetine 20 mg capsule 2017-02 2 00:00: 00 Yes [facility] FLUoxetine 20 mg capsule 2017-02 2 00:00: 00 Yes [facility] FLUoxetine 20 mg capsule 2017-02 2 00:00: 00 Yes [facility] Immunizations Ordered Immunization Name Filled Immunization Name Date Status Comments Source SARS-COV-2 COVID-19 PFIZER ROSELIA-SUCROSE VACCINE (LEO TOP) 2021-04-29 00:00:00 Completed [facility] SARS-COV-2 COVID-19 PFIZER ROSELIA-SUCROSE VACCINE (LEO TOP) 2021-04-29 00:00:00 Completed [facility] SARS-COV-2 COVID-19 PFIZER ROSELIA-SUCROSE VACCINE (LEO TOP) 2021-04-29 00:00:00 Completed [facility] SARS-COV-2 COVID-19 PFIZER ROSELIA-SUCROSE VACCINE (LEO TOP) 2021-04-29 00:00:00 Completed [facility] SARS-COV-2 COVID-19 PFIZER ROSELIA-SUCROSE VACCINE (LEO TOP) 2021-04-29 00:00:00 Completed [facility] SARS-COV-2 COVID-19 PFIZER ROSELIA-SUCROSE VACCINE (LEO TOP) 2021-04-29 00:00:00 Completed [facility] SARS-COV-2 COVID-19 PFIZER ROSELIA-SUCROSE VACCINE (LEO TOP) 2021-04-29 00:00:00 Completed [facility] SARS-COV-2 COVID-19 PFIZER ROSELIA-SUCROSE VACCINE (LEO TOP) 2021-04-29 00:00:00 Completed [facility] SARS-COV-2 COVID-19 PFIZER ROSELIA-SUCROSE VACCINE (LEO TOP) 2021-04-29 00:00:00 Completed [facility] SARS-COV-2 COVID-19 PFIZER ROSELIA-SUCROSE VACCINE (LEO TOP) 2021-04-29 00:00:00 Completed [facility] SARS-COV-2 COVID-19 PFIZER ROSELIA-SUCROSE VACCINE (LEO TOP) 2021-04-29 00:00:00 Completed [facility] SARS-COV-2 COVID-19 PFIZER ROSELIA-SUCROSE VACCINE (LEO TOP) 2021-04-29 00:00:00 Completed [facility] SARS-COV-2 COVID-19 PFIZER ROSELIA-SUCROSE VACCINE (LEO TOP) 2021-04-29 00:00:00 Completed [facility] SARS-COV-2 COVID-19 PFIZER ROSELIA-SUCROSE VACCINE (LEO TOP) 2021-04-29 00:00:00 Completed [facility] SARS-COV-2 COVID-19 PFIZER ROSELIA-SUCROSE VACCINE (LEO TOP) 2021-04-29 00:00:00 Completed [facility] SARS-COV-2 COVID-19 PFIZER ROSELIA-SUCROSE VACCINE (LEO TOP) 2021-04-29 00:00:00 Completed [facility] SARS-COV-2 COVID-19 PFIZER ROSELIA-SUCROSE VACCINE (LEO TOP) 2021-04-29 00:00:00 Completed [facility] SARS-COV-2 COVID-19 PFIZER ROSELIA-SUCROSE VACCINE (LEO TOP) 2021-04-29 00:00:00 Completed [facility] SARS-COV-2 COVID-19 PFIZER ROSELIA-SUCROSE VACCINE (LEO TOP) 2021-04-29 00:00:00 Completed [facility] SARS-COV-2 COVID-19 PFIZER ROSELIA-SUCROSE VACCINE (LEO TOP) 2021-04-29 00:00:00 Completed [facility] SARS-COV-2 COVID-19 PFIZER ROSELIA-SUCROSE VACCINE (LEO TOP) 2021-04-29 00:00:00 Completed [facility] SARS-COV-2 COVID-19 PFIZER ROSELIA-SUCROSE VACCINE (LEO TOP) 2021-04-29 00:00:00 Completed [facility] SARS-COV-2 COVID-19 PFIZER ROSELIA-SUCROSE VACCINE (LEO TOP) 2021-04-29 00:00:00 Completed [facility] SARS-COV-2 COVID-19 PFIZER ROSELIA-SUCROSE VACCINE (LEO TOP) 2021-04-29 00:00:00 Completed [facility] SARS-COV-2 COVID-19 PFIZER ROSELIA-SUCROSE VACCINE (LEO TOP) 2021-04-29 00:00:00 Completed [facility] SARS-COV-2 COVID-19 PFIZER ROSELIA-SUCROSE VACCINE (LEO TOP) 2021-04-29 00:00:00 Completed [facility] SARS-COV-2 COVID-19 PFIZER ROSELIA-SUCROSE VACCINE (LEO TOP) 2021-04-29 00:00:00 Completed [facility] SARS-COV-2 COVID-19 PFIZER ROSELIA-SUCROSE VACCINE (LEO TOP) 2021-04-29 00:00:00 Completed [facility] SARS-COV-2 COVID-19 PFIZER ROSELIA-SUCROSE VACCINE (LEO TOP) 2021-04-29 00:00:00 Completed [facility] SARS-COV-2 COVID-19 PFIZER ROSELIA-SUCROSE VACCINE (LEO TOP) 2021-04-29 00:00:00 Completed [facility] SARS-COV-2 COVID-19 PFIZER ROSELIA-SUCROSE VACCINE (LEO TOP) 2021-04-29 00:00:00 Completed [facility] SARS-COV-2 COVID-19 PFIZER ROSELIA-SUCROSE VACCINE (LEO TOP) 2021-04-29 00:00:00 Completed [facility] SARS-COV-2 COVID-19 PFIZER ROSELIA-SUCROSE VACCINE (LEO TOP) 2021-04-29 00:00:00 Completed [facility] SARS-COV-2 COVID-19 PFIZER ROSELIA-SUCROSE VACCINE (LEO TOP) 2021-04-29 00:00:00 Completed [facility] SARS-COV-2 COVID-19 PFIZER ROSELIA-SUCROSE VACCINE (LEO TOP) 2021-04-29 00:00:00 Completed [facility] SARS-COV-2 COVID-19 PFIZER ROSELIA-SUCROSE VACCINE (LEO TOP) 2021-04-29 00:00:00 Completed [facility] SARS-COV-2 COVID-19 PFIZER ROSELIA-SUCROSE VACCINE (LEO TOP) 2021-04-29 00:00:00 Completed [facility] SARS-COV-2 COVID-19 PFIZER ROSELIA-SUCROSE VACCINE (LEO TOP) 2021-04-29 00:00:00 Completed [facility] SARS-COV-2 COVID-19 PFIZER ROSELIA-SUCROSE VACCINE (LEO TOP) 2021-04-29 00:00:00 Completed [facility] SARS-COV-2 COVID-19 PFIZER ROSELIA-SUCROSE VACCINE (LEO TOP) 2021-04-29 00:00:00 Completed [facility] SARS-COV-2 COVID-19 PFIZER ROSELIA-SUCROSE VACCINE (LEO TOP) 2021-04-29 00:00:00 Completed [facility] SARS-COV-2 COVID-19 PFIZER ROSELIA-SUCROSE VACCINE (LEO TOP) 2021-04-29 00:00:00 Completed [facility] SARS-COV-2 COVID-19 PFIZER ROSELIA-SUCROSE VACCINE (LEO TOP) 2021-04-29 00:00:00 Completed [facility] SARS-COV-2 COVID-19 PFIZER ROSELIA-SUCROSE VACCINE (LEO TOP) 2021-04-29 00:00:00 Completed [facility] SARS-COV-2 COVID-19 PFIZER ROSELIA-SUCROSE VACCINE (LEO TOP) 2021-04-29 00:00:00 Completed [facility] SARS-COV-2 COVID-19 PFIZER VACCINE 2020-05-25 00:00:00 Completed [facility] SARS-COV-2 COVID-19 PFIZER VACCINE 2020-05-25 00:00:00 Completed [facility] SARS-COV-2 COVID-19 PFIZER VACCINE 2020-05-25 00:00:00 Completed [facility] SARS-COV-2 COVID-19 PFIZER VACCINE 2020-05-25 00:00:00 Completed [facility] SARS-COV-2 COVID-19 PFIZER VACCINE 2020-05-25 00:00:00 Completed [facility] SARS-COV-2 COVID-19 PFIZER VACCINE 2020-05-25 00:00:00 Completed [facility] SARS-COV-2 COVID-19 PFIZER VACCINE 2020-05-25 00:00:00 Completed [facility] SARS-COV-2 COVID-19 PFIZER VACCINE 2020-05-25 00:00:00 Completed [facility] SARS-COV-2 COVID-19 PFIZER VACCINE 2020-05-25 00:00:00 Completed [facility] SARS-COV-2 COVID-19 PFIZER VACCINE 2020-05-25 00:00:00 Completed [facility] SARS-COV-2 COVID-19 PFIZER VACCINE 2020-05-25 00:00:00 Completed [facility] SARS-COV-2 COVID-19 PFIZER VACCINE 2020-05-25 00:00:00 Completed [facility] SARS-COV-2 COVID-19 PFIZER VACCINE 2020-05-25 00:00:00 Completed [facility] SARS-COV-2 COVID-19 PFIZER VACCINE 2020-05-25 00:00:00 Completed [facility] SARS-COV-2 COVID-19 PFIZER VACCINE 2020-05-25 00:00:00 Completed [facility] SARS-COV-2 COVID-19 PFIZER VACCINE 2020-05-25 00:00:00 Completed [facility] SARS-COV-2 COVID-19 PFIZER VACCINE 2020-05-25 00:00:00 Completed [facility] SARS-COV-2 COVID-19 PFIZER VACCINE 2020-05-25 00:00:00 Completed [facility] SARS-COV-2 COVID-19 PFIZER VACCINE 2020-05-25 00:00:00 Completed [facility] SARS-COV-2 COVID-19 PFIZER VACCINE 2020-05-25 00:00:00 Completed [facility] SARS-COV-2 COVID-19 PFIZER VACCINE 2020-05-25 00:00:00 Completed [facility] SARS-COV-2 COVID-19 PFIZER VACCINE 2020-05-25 00:00:00 Completed [facility] SARS-COV-2 COVID-19 PFIZER VACCINE 2020-05-25 00:00:00 Completed [facility] SARS-COV-2 COVID-19 PFIZER VACCINE 2020-05-25 00:00:00 Completed [facility] SARS-COV-2 COVID-19 PFIZER VACCINE 2020-05-25 00:00:00 Completed [facility] SARS-COV-2 COVID-19 PFIZER VACCINE 2020-05-25 00:00:00 Completed [facility] SARS-COV-2 COVID-19 PFIZER VACCINE 2020-05-25 00:00:00 Completed [facility] SARS-COV-2 COVID-19 PFIZER VACCINE 2020-05-25 00:00:00 Completed [facility] SARS-COV-2 COVID-19 PFIZER VACCINE 2020-05-25 00:00:00 Completed [facility] SARS-COV-2 COVID-19 PFIZER VACCINE 2020-05-25 00:00:00 Completed [facility] SARS-COV-2 COVID-19 PFIZER VACCINE 2020-05-25 00:00:00 Completed [facility] SARS-COV-2 COVID-19 PFIZER VACCINE 2020-05-25 00:00:00 Completed [facility] SARS-COV-2 COVID-19 PFIZER VACCINE 2020-05-25 00:00:00 Completed [facility] SARS-COV-2 COVID-19 PFIZER VACCINE 2020-05-25 00:00:00 Completed [facility] SARS-COV-2 COVID-19 PFIZER VACCINE 2020-05-25 00:00:00 Completed [facility] SARS-COV-2 COVID-19 PFIZER VACCINE 2020-05-25 00:00:00 Completed [facility] SARS-COV-2 COVID-19 PFIZER VACCINE 2020-05-25 00:00:00 Completed [facility] SARS-COV-2 COVID-19 PFIZER VACCINE 2020-05-25 00:00:00 Completed [facility] SARS-COV-2 COVID-19 PFIZER VACCINE 2020-05-25 00:00:00 Completed [facility] SARS-COV-2 COVID-19 PFIZER VACCINE 2020-05-25 00:00:00 Completed [facility] SARS-COV-2 COVID-19 PFIZER VACCINE 2020-05-25 00:00:00 Completed [facility] SARS-COV-2 COVID-19 PFIZER VACCINE 2020-05-25 00:00:00 Completed [facility] SARS-COV-2 COVID-19 PFIZER VACCINE 2020-05-25 00:00:00 Completed [facility] SARS-COV-2 COVID-19 PFIZER VACCINE 2020-05-25 00:00:00 Completed [facility] SARS-COV-2 COVID-19 PFIZER VACCINE 2020-05-25 00:00:00 Completed [facility] SARS-COV-2 COVID-19 PFIZER VACCINE 2020-05-04 00:00:00 Completed [facility] SARS-COV-2 COVID-19 PFIZER VACCINE 2020-05-04 00:00:00 Completed [facility] SARS-COV-2 COVID-19 PFIZER VACCINE 2020-05-04 00:00:00 Completed [facility] SARS-COV-2 COVID-19 PFIZER VACCINE 2020-05-04 00:00:00 Completed [facility] SARS-COV-2 COVID-19 PFIZER VACCINE 2020-05-04 00:00:00 Completed [facility] SARS-COV-2 COVID-19 PFIZER VACCINE 2020-05-04 00:00:00 Completed [facility] SARS-COV-2 COVID-19 PFIZER VACCINE 2020-05-04 00:00:00 Completed [facility] SARS-COV-2 COVID-19 PFIZER VACCINE 2020-05-04 00:00:00 Completed [facility] SARS-COV-2 COVID-19 PFIZER VACCINE 2020-05-04 00:00:00 Completed [facility] SARS-COV-2 COVID-19 PFIZER VACCINE 2020-05-04 00:00:00 Completed [facility] SARS-COV-2 COVID-19 PFIZER VACCINE 2020-05-04 00:00:00 Completed [facility] SARS-COV-2 COVID-19 PFIZER VACCINE 2020-05-04 00:00:00 Completed [facility] SARS-COV-2 COVID-19 PFIZER VACCINE 2020-05-04 00:00:00 Completed [facility] SARS-COV-2 COVID-19 PFIZER VACCINE 2020-05-04 00:00:00 Completed [facility] SARS-COV-2 COVID-19 PFIZER VACCINE 2020-05-04 00:00:00 Completed [facility] SARS-COV-2 COVID-19 PFIZER VACCINE 2020-05-04 00:00:00 Completed [facility] SARS-COV-2 COVID-19 PFIZER VACCINE 2020-05-04 00:00:00 Completed [facility] SARS-COV-2 COVID-19 PFIZER VACCINE 2020-05-04 00:00:00 Completed [facility] SARS-COV-2 COVID-19 PFIZER VACCINE 2020-05-04 00:00:00 Completed [facility] SARS-COV-2 COVID-19 PFIZER VACCINE 2020-05-04 00:00:00 Completed [facility] SARS-COV-2 COVID-19 PFIZER VACCINE 2020-05-04 00:00:00 Completed [facility] SARS-COV-2 COVID-19 PFIZER VACCINE 2020-05-04 00:00:00 Completed [facility] SARS-COV-2 COVID-19 PFIZER VACCINE 2020-05-04 00:00:00 Completed [facility] SARS-COV-2 COVID-19 PFIZER VACCINE 2020-05-04 00:00:00 Completed [facility] SARS-COV-2 COVID-19 PFIZER VACCINE 2020-05-04 00:00:00 Completed [facility] SARS-COV-2 COVID-19 PFIZER VACCINE 2020-05-04 00:00:00 Completed [facility] SARS-COV-2 COVID-19 PFIZER VACCINE 2020-05-04 00:00:00 Completed [facility] SARS-COV-2 COVID-19 PFIZER VACCINE 2020-05-04 00:00:00 Completed [facility] SARS-COV-2 COVID-19 PFIZER VACCINE 2020-05-04 00:00:00 Completed [facility] SARS-COV-2 COVID-19 PFIZER VACCINE 2020-05-04 00:00:00 Completed [facility] SARS-COV-2 COVID-19 PFIZER VACCINE 2020-05-04 00:00:00 Completed [facility] SARS-COV-2 COVID-19 PFIZER VACCINE 2020-05-04 00:00:00 Completed [facility] SARS-COV-2 COVID-19 PFIZER VACCINE 2020-05-04 00:00:00 Completed [facility] SARS-COV-2 COVID-19 PFIZER VACCINE 2020-05-04 00:00:00 Completed [facility] SARS-COV-2 COVID-19 PFIZER VACCINE 2020-05-04 00:00:00 Completed [facility] SARS-COV-2 COVID-19 PFIZER VACCINE 2020-05-04 00:00:00 Completed [facility] SARS-COV-2 COVID-19 PFIZER VACCINE 2020-05-04 00:00:00 Completed [facility] SARS-COV-2 COVID-19 PFIZER VACCINE 2020-05-04 00:00:00 Completed [facility] SARS-COV-2 COVID-19 PFIZER VACCINE 2020-05-04 00:00:00 Completed [facility] SARS-COV-2 COVID-19 PFIZER VACCINE 2020-05-04 00:00:00 Completed [facility] SARS-COV-2 COVID-19 PFIZER VACCINE 2020-05-04 00:00:00 Completed [facility] SARS-COV-2 COVID-19 PFIZER VACCINE 2020-05-04 00:00:00 Completed [facility] SARS-COV-2 COVID-19 PFIZER VACCINE 2020-05-04 00:00:00 Completed [facility] SARS-COV-2 COVID-19 PFIZER VACCINE 2020-05-04 00:00:00 Completed [facility] SARS-COV-2 COVID-19 PFIZER VACCINE 2020-05-04 00:00:00 Completed [facility] SARS-COV-2 COVID-19 PFIZER VACCINE Unknown Completed [facility] SARS-COV-2 COVID-19 PFIZER VACCINE Unknown Completed [facility] SARS-COV-2 COVID-19 PFIZER ROSELIA-SUCROSE VACCINE (LEO TOP) Unknown Completed [facility] SARS-COV-2 COVID-19 PFIZER VACCINE Unknown Completed [facility] SARS-COV-2 COVID-19 PFIZER VACCINE Unknown Completed [facility] SARS-COV-2 COVID-19 PFIZER ROSELIA-SUCROSE VACCINE (LEO TOP) Unknown Completed [facility] SARS-COV-2 COVID-19 PFIZER VACCINE Unknown Completed [facility] SARS-COV-2 COVID-19 PFIZER VACCINE Unknown Completed [facility] SARS-COV-2 COVID-19 PFIZER ROSELIA-SUCROSE VACCINE (LEO TOP) Unknown Completed [facility] Vital Signs Vital Name Observation Time Observation Value Comments S ource Systolic blood pressure 2023-04-01 16:05:00 140 mm[Hg] [facility] Diastolic blood pressure 2023-04-01 16:05:00 93 mm[Hg] [facility] Heart rate 2023-04-01 16:04:00 78 /min [facility] Body temperature 2023-04-01 16:04:00 36.22 Iv[facility] Respiratory rate 2023-04-01 16:04:00 18 /min [facility] Body height 2023-04-01 16:04:00 165.1 cm [facility] Body weight 2023-04-01 16:04:00 86.41 kg [facility] BMI 2023-04-01 16:04:00 31.70 kg/m2 [facility] Oxygen saturation in Arterial blood by Pulse oximetry 2023-04-01 16:04:00 100 /min [facility] Body height 2022-10-18 18:55:00 165.1 cm [facility] Body weight 2022-10-18 18:55:00 80.015 kg [facility] BMI 2022-10-18 18:55:00 29.35 kg/m2 [facility] Systolic blood pressure 2022-09-30 22:20:00 123 mm[Hg] [facility] Diastolic blood pressure 2022-09-30 22:20:00 86 mm[Hg] [facility] Heart rate 2022-09-30 22:20:00 95 /min [facility] Body temperature 2022-09-30 22:20:00 36.94 [facility] Respiratory rate 2022-09-30 22:20:00 18 /min [facility] Body height 2022-09-30 22:20:00 165.1 cm [facility] Body weight 2022-09-30 22:20:00 77.168 kg [facility] BMI 2022-09-30 22:20:00 28.31 kg/m2 [facility] Oxygen saturation in Arterial blood by Pulse oximetry 2022-09-30 22:20:00 97 /min [facility] Systolic blood pressure 2022-09-25 21:13:00 118 mm[Hg] [facility] Diastolic blood pressure 2022-09-25 21:13:00 73 mm[Hg] [facility] Heart rate 2022-09-25 21:13:00 80 /min [facility] Body temperature 2022-09-25 21:13:00 37 [facility] Body height 2022-09-25 21:13:00 165.1 cm [facility] Body weight 2022-09-25 21:13:00 79.379 kg [facility] BMI 2022-09-25 21:13:00 29.12 kg/m2 [facility] Oxygen saturation in Arterial blood by Pulse oximetry 2022-09-25 21:13:00 98 /min [facility] Systolic blood pressure 2022-09-17 19:01:00 124 mm[Hg] [facility] Diastolic blood pressure 2022-09-17 19:01:00 83 mm[Hg] [facility] Heart rate 2022-09-17 19:01:00 97 [facility] Body temperature 2022-09-17 19:01:00 37.17 [facility] Respiratory rate 2022-09-17 19:01:00 18 /min [facility] Body height 2022-09-17 19:01:00 165.1 cm [facility] Body weight 2022-09-17 19:01:00 77.656 kg [facility] BMI 2022-09-17 19:01:00 28.49 kg/m2 [facility] Oxygen saturation in Arterial blood by Pulse oximetry 2022-09-17 19:01:00 98 /min [facility] Systolic blood pressure 2022-09-11 17:48:00 113 mm[Hg] [facility] Diastolic blood pressure 2022-09-11 17:48:00 75 mm[Hg] [facility] Heart rate 2022-09-11 17:48:00 97 /min [facility] Body temperature 2022-09-11 17:48:00 37 Iv[facility] Body height 2022-09-11 17:48:00 165.1 cm [facility] Body weight 2022-09-11 17:48:00 77.973 kg [facility] BMI 2022-09-11 17:48:00 28.61 kg/m2 [facility] Oxygen saturation in Arterial blood by Pulse oximetry 2022-09-11 17:48:00 98 /min [facility] Systolic blood pressure 2022-09-04 20:00:00 122 mm[Hg] [facility] Diastolic blood pressure 2022-09-04 20:00:00 72 mm[Hg] [facility] Heart rate 2022-09-04 20:00:00 87 /min [facility] Oxygen saturation in Arterial blood by Pulse oximetry 2022-09-04 20:00:00 100 /min [facility] Respiratory rate 2022-09-04 19:00:00 18 /min [facility] Body temperature 2022-09-04 17:32:00 37.22 [facility] Body weight 2022-09-04 17:32:00 80.74 kg [facility] Systolic blood pressure 2022-08-19 19:14:00 131 mm[Hg] [facility] Diastolic blood pressure 2022-08-19 19:14:00 85 mm[Hg] [facility] Heart rate 2022-08-19 19:14:00 93 /min [facility] Body temperature 2022-08-19 19:14:00 36.94 [facility] Respiratory rate 2022-08-19 19:14:00 17 /min [facility] Body height 2022-08-19 19:14:00 165.1 cm [facility] Body weight 2022-08-19 19:14:00 80.825 kg [facility] BMI 2022-08-19 19:14:00 29.65 kg/m2 [facility] Oxygen saturation in Arterial blood by Pulse oximetry 2022-08-19 19:14:00 97 /min [facility] Systolic blood pressure 2022-07-20 16:02:00 115 mm[Hg] [facility] Diastolic blood pressure 2022-07-20 16:02:00 85 mm[Hg] [facility] Heart rate 2022-07-20 16:02:00 89 /min [facility] Body temperature 2022-07-20 16:02:00 36.94 [facility] Respiratory rate 2022-07-20 16:02:00 16 /min [facility] Body weight 2022-07-20 16:02:00 83.416 kg [facility] Oxygen saturation in Arterial blood by Pulse oximetry 2022-07-20 16:02:00 97 /min [facility] Systolic blood pressure 2022-07-11 16:03:00 130 mm[Hg] [facility] Diastolic blood pressure 2022-07-11 16:03:00 79 mm[Hg] [facility] Heart rate 2022-07-11 16:00:00 95 /min [facility] Body temperature 2022-07-11 16:00:00 36.83 [facility] Respiratory rate 2022-07-11 16:00:00 17 /min [facility] Body height 2022-07-11 16:00:00 165.1 cm [facility] Body weight 2022-07-11 16:00:00 81.965 kg [facility] BMI 2022-07-11 16:00:00 30.07 kg/m2 [facility] Oxygen saturation in Arterial blood by Pulse oximetry 2022-07-11 16:00:00 96 /min [facility] Systolic blood pressure 2022-06-02 17:13:00 113 mm[Hg] [facility] Diastolic blood pressure 2022-06-02 17:13:00 77 mm[Hg] [facility] Heart rate 2022-06-02 17:13:00 72 /min [facility] Body temperature 2022-06-02 17:13:00 36.28 [facility] Respiratory rate 2022-06-02 17:13:00 18 /min [facility] Body height 2022-06-02 17:13:00 167.6 cm [facility] Body weight 2022-06-02 17:13:00 84.868 kg [facility] BMI 2022-06-02 17:13:00 30.20 kg/m2 [facility] Oxygen saturation in Arterial blood by Pulse oximetry 2022-06-02 17:13:00 98 /min [facility] Body height 2022-06-01 14:02:00 165.1 cm [facility] Body weight 2022-06-01 14:02:00 85.004 kg [facility] BMI 2022-06-01 14:02:00 31.18 kg/m2 [facility] Systolic blood pressure 2022-05-10 20:12:00 134 mm[Hg] [facility] Diastolic blood pressure 2022-05-10 20:12:00 82 mm[Hg] [facility] Heart rate 2022-05-10 20:10:00 108 /min [facility] Body temperature 2022-05-10 20:10:00 36.89 [facility] Respiratory rate 2022-05-10 20:10:00 16 /min [facility] Body height 2022-05-10 20:10:00 165.1 cm [facility] Body weight 2022-05-10 20:10:00 85.548 kg [facility] BMI 2022-05-10 20:10:00 31.38 kg/m2 [facility] Oxygen saturation in Arterial blood by Pulse oximetry 2022-05-10 20:10:00 99 /min [facility] Systolic blood pressure 2022-05-04 00:58:00 148 mm[Hg] [facility] Diastolic blood pressure 2022-05-04 00:58:00 80 mm[Hg] [facility] Heart rate 2022-05-04 00:58:00 98 /min [facility] Body temperature 2022-05-04 00:58:00 37.28 Ivone [facility] Respiratory rate 2022-05-04 00:58:00 24 /min [facility] Body height 2022-05-04 00:58:00 165.1 cm [facility] Body weight 2022-05-04 00:58:00 85.049 kg [facility] BMI 2022-05-04 00:58:00 31.20 kg/m2 [facility] Oxygen saturation in Arterial blood by Pulse oximetry 2022-05-04 00:58:00 99 /min [facility] Systolic blood pressure 2022-04-26 14:51:00 139 mm[Hg] [facility] Diastolic blood pressure 2022-04-26 14:51:00 88 mm[Hg] [facility] Heart rate 2022-04-26 14:50:00 112 /min [facility] Body temperature 2022-04-26 14:50:00 38.11 Ivone [facility] Respiratory rate 2022-04-26 14:50:00 16 /min [facility] Body height 2022-04-26 14:50:00 165.1 cm [facility] Body weight 2022-04-26 14:50:00 86.501 kg [facility] BMI 2022-04-26 14:50:00 31.73 kg/m2 [facility] Oxygen saturation in Arterial blood by Pulse oximetry 2022-04-26 14:50:00 96 /min [facility] Systolic blood pressure 2022-04-12 19:10:00 129 mm[Hg] [facility] Diastolic blood pressure 2022-04-12 19:10:00 84 mm[Hg] [facility] Heart rate 2022-04-12 19:10:00 90 /min [facility] Body temperature 2022-04-12 19:10:00 37.06 Ivone [facility] Respiratory rate 2022-04-12 19:10:00 18 /min [facility] Body height 2022-04-12 19:10:00 165.1 cm [facility] Body weight 2022-04-12 19:10:00 85.503 kg [facility] BMI 2022-04-12 19:10:00 31.37 kg/m2 [facility] Oxygen saturation in Arterial blood by Pulse oximetry 2022-04-12 19:10:00 99 /min [facility] Systolic blood pressure 2021-12-18 16:02:00 127 mm[Hg] [facility] Diastolic blood pressure 2021-12-18 16:02:00 85 mm[Hg] [facility] Heart rate 2021-12-18 16:02:00 82 /min [facility] Body temperature 2021-12-18 16:02:00 36.44 Ivone [facility] Respiratory rate 2021-12-18 16:02:00 18 /min [facility] Body height 2021-12-18 16:02:00 165.2 cm [facility] Body weight 2021-12-18 16:02:00 83.008 kg [facility] BMI 2021-12-18 16:02:00 30.43 kg/m2 [facility] Oxygen saturation in Arterial blood by Pulse oximetry 2021-12-18 16:02:00 98 /min [facility] Systolic blood pressure 2021-12-14 14:35:00 123 mm[Hg] [facility] Diastolic blood pressure 2021-12-14 14:35:00 69 mm[Hg] [facility] Heart rate 2021-12-14 14:35:00 109 /min [facility] Body temperature 2021-12-14 14:35:00 37 Ivone [facility] Respiratory rate 2021-12-14 14:35:00 16 /min [facility] Body weight 2021-12-14 14:35:00 83.371 kg [facility] Oxygen saturation in Arterial blood by Pulse oximetry 2021-12-14 14:35:00 98 /min [facility] Systolic blood pressure 2021-09-17 17:33:00 119 mm[Hg] [facility] Diastolic blood pressure 2021-09-17 17:33:00 84 mm[Hg] [facility] Heart rate 2021-09-17 17:33:00 96 /min [facility] Body temperature 2021-09-17 17:33:00 37.11 Ivone [facility] Respiratory rate 2021-09-17 17:33:00 16 /min [facility] Body height 2021-09-17 17:33:00 165.1 cm [facility] Body weight 2021-09-17 17:33:00 83.008 kg [facility] BMI 2021-09-17 17:33:00 30.45 kg/m2 [facility] Oxygen saturation in Arterial blood by Pulse oximetry 2021-09-17 17:33:00 98 /min [facility] Systolic blood pressure 2021-09-07 17:21:00 129 mm[Hg] [facility] Diastolic blood pressure 2021-09-07 17:21:00 83 mm[Hg] [facility] Heart rate 2021-09-07 17:21:00 72 /min [facility] Body temperature 2021-09-07 17:21:00 36.89 Ivone [facility] Respiratory rate 2021-09-07 17:21:00 20 /min [facility] Body height 2021-09-07 17:21:00 165.1 cm [facility] Body weight 2021-09-07 17:21:00 81.874 kg [facility] BMI 2021-09-07 17:21:00 30.04 kg/m2 [facility] Oxygen saturation in Arterial blood by Pulse oximetry 2021-09-07 17:21:00 98 /min [facility] Systolic blood pressure 2021-08-23 14:52:00 127 mm[Hg] [facility] Diastolic blood pressure 2021-08-23 14:52:00 80 mm[Hg] [facility] Heart rate 2021-08-23 14:52:00 93 /min [facility] Body temperature 2021-08-23 14:52:00 38.17 Ivone [facility] Respiratory rate 2021-08-23 14:52:00 17 /min [facility] Body height 2021-08-23 14:52:00 165.1 cm [facility] Body weight 2021-08-23 14:52:00 81.647 kg [facility] BMI 2021-08-23 14:52:00 29.95 kg/m2 [facility] Oxygen saturation in Arterial blood by Pulse oximetry 2021-08-23 14:52:00 100 /min [place] o [facility] Procedures Procedure Date / Time Performed Performing Clinician Source POCT SARS-COV-2 ANTIGEN (BINAX NOW) 2023-04-01 00:00:00 Nora Barrera [facility] COMP. METABOLIC PANEL (14101) 2022-09-04 18:47:00 Elda Downs [facility] CBC WITH DIFF 2022-09-04 18:47:00 [facility] COVID-[facility] (ID NOW RAPID TESTING) 2022-09-04 18:47:00 Elda Downs [facility] CONSENT/REFUSAL FOR DIAGNOSIS AND TREATMENT 2022-09-04 17:29:28 Doctor Unassigned, Dierks [facility] THROAT CULTURE 2022-08-19 19:57:00 Monroe Loyola [facility] GC & CHLAMYDIA AMPLIFIED ASSAY 2022-08-19 19:57:00 Christiano [facility] POCT MOLECULAR FLU 2022-08-19 19:36:00 Unknown, Attend ing [facility] POCT SARS-COV-2 ANTIGEN (BINAX NOW) 2022-08-19 19:33:00 Christiano [facility] POCT MOLECULAR STREP 2022-08-19 19:16:00 Unknown, Harpal cisse [facility] POCT MOLECULAR STREP 2022-06-02 17:25:00 Unknown, Harpal cisse [facility] XR CHEST 2 VW 2022-05-04 01:26:00 Tracy Babin [facility] RAPID STREP SCREEN FOR GROUP A 2022-05-04 01:21:00 Tracy Babin [facility] CONSENT/REFUSAL FOR DIAGNOSIS AND TREATMENT 2022-05-04 00:54:30 Doctor Unassigned, Dierks [facility] POCT SARS-COV-2 ANTIGEN (BINAX NOW) 2022-04-26 15:04:00 Sathya Vasquez [facility] POCT MOLECULAR FLU 2022-04-26 14:58:00 Unknown, Attend [facility] POCT MOLECULAR STREP 2022-04-26 14:56:00 Unknown, Attsuhail [facility] POCT MOLECULAR STREP 2022-04-12 19:25:00 Unknown, Attsuhail [facility] ASSIGNMENT OF BENEFITS 2022-04-12 19:01:07 Docto r Unassigned, Dierks [facility] POCT MOLECULAR STREP 2021-12-18 16:01:00 Unknown, Atte [facility] POCT MOLECULAR FLU 2021-12-14 14:42:00 Unknown, Attend [facility] POCT MOLECULAR STREP 2021-09-17 17:37:00 Stevie Gregg [facility] COVID-19 (MOLECULAR TESTING NUCLEIC ACID AMPLIFICATION) 2021-09-17 17:35:00 Marysol [facility] LAB ONLY COVID INTERPRETATION 2021-09-17 17:35:00 Stevie Gregg [facility] POCT MOLECULAR STREP 2021-08-23 14:59:00 Nora Barrera [facility] Encounters Start Date/Time End Date/Time Encounter Type Admission Type Attending [facility] Care Facility Care Department Encounter ID Source 2023-04-03 08:00:00 2023-04-03 08:00:00 Outpatient GISSEL MOHAMUD [facility] [id number] [facility] 2023-04-01 09:40:00 2023-04-01 10:37:09 Outpatient CAMPBELL FREDERICK [facility] [id number] [facility] 2023-04-01 09:40:00 2023-04-01 10:00:00 Urgent Care Campbell Browne Unknown, Attending PERSON [facility] [place] [facility] 1..840.114 350.1.13.10 4.2.7.2.686 [id number] [facility] 2023-04-01 00:00:00 2023-04-01 00:00:00 Letter (Out) Campbell Browne PERSON [facility] 1..840.114 350.1.13.10 4.2.7.2.686 [id number] [facility] 2023-01-21 14:15:00 2023-01-21 14:15:00 Outpatient R OVI STILES [facility] [id number] [facility] 2023-01-18 16:00:00 2023-01-18 16:00:00 Outpatient R [facility] [id number] [facility] 2022-12-26 15:30:00 2022-12-26 15:30:00 Outpatient R ROBERT GUERIN [facility] [id number] [facility] 2022-10-18 14:15:00 2022-10-18 14:30:00 Office Visit Ovi Stiles [facility] ..840.114 350.1.13.10 4.2.7.2.686 [id number] [facility] 2022-10-18 14:15:00 2022-10-18 14:15:00 Outpatient R OVI STILES [facility] [id number] [facility] 2022-09-30 17:00:00 2022-09-30 18:35:20 Outpatient R MONROE LOYOLA [facility] [id number] [facility] 2022-09-30 17:00:00 2022-09-30 18:35:20 Urgent Care Monroe Loyola Unknown, Attending PERSON [facility] 1.840.114 350.1.13.10 4.2.7.2.686 [id number] [facility] 2022-09-25 16:00:00 2022-09-25 16:34:10 Outpatient R ROBERT GUERIN [facility] [id number] [facility] 2022-09-25 16:00:00 2022-09-25 16:34:10 Office Visit Robert Guerin [facility] 1.840.114 350.1.13.10 4.2.7.2.686 [id number] [facility] 2022-09-17 14:00:00 2022-09-17 14:31:03 Outpatient R CAMPBELL BROWNE [facility] [id number] [facility] 2022-09-17 14:00:00 2022-09-17 14:20:00 Urgent Care Campbell Browne Unknown, Attending PERSON [facility] 1.840.114 350.1.13.10 4.2.7.2.686 [id number] 370 [id number] [facility] 2022-09-17 00:00:00 2022-09-17 00:00:00 Letter (Out) Campbell Brow[facility] 1.840.114 350.1.13.10 4.2.7.2.686 [id number] [facility] 2022-09-11 13:37:28 2022-09-11 23:59:00 Outpatient R ROBERT GUERIN [facility] [id number] [facility] 2022-09-11 13:37:28 2022-09-11 23:59:00 Hospital Encounter Robert Guerin [facility] 1.840.114 350.1.13.10 4.2.7.2.686 [id number] [facility] 2022-09-11 13:30:00 2022-09-11 13:45:00 [employer] Administrator Visit Lab, Nickolas - Timothy Robert Guerin [facility] 1.2.840.114 350.1.13.10 4.2.7.2.686 [id number] [facility] 2022-09-11 13:00:00 2022-09-11 13:30:00 Office Visit Robert Guerin [facility] 1.2840.114 350.1.13.10 4.2.7.2.686 [id number] [facility] 2022-09-11 00:00:00 2022-09-11 00:00:00 Letter (Out) Robert Guerin [facility] 1.2840.114 350.1.13.10 4.2.7.2.686 [id number] [facility] 2022-09-04 12:33:00 2022-09-04 15:08:00 Emergency X ELDA DOWNS [facility] [id number] [facility] 2022-09-04 12:33:00 2022-09-04 15:08:00 Emergency Elda Downs [facility] 1.2840.114 350.1.13.10 4.2.7.2.686 [id number] [facility] 2022-08-23 00:00:00 2022-08-23 00:00:00 Telephone ChristianoMonroe [facility] [place] 1.2840.114 350.1.13.10 4.2.7.2.686 [id number] [facility] 2022-08-19 14:00:00 2022-08-19 15:03:11 Outpatient R MONROE LOYOLA [facility] [id number] [facility] 2022-08-19 14:00:00 2022-08-19 15:03:11 Urgent Care Monroe Loyola Unknown, Attending PERSON [facility] [place] [facility] 1.2.840.114 350.1.13.10 4.2.7.2.686 [id number] [facility] 2022-07-20 10:40:00 2022-07-20 11:00:00 Urgent Care Sathya Vasquez, Attending PERSON [facility] 1.2.840.114 350.1.13.10 4.2.7.2.686 [id number] [facility] 2022-07-20 10:40:00 2022-07-20 10:40:00 Outpatient R SATHYA VASQUEZ [facility] [id number] [facility] 2022-07-20 00:00:00 2022-07-20 00:00:00 Letter (Out) Sathya Vasquez PERSON [facility] 1.2.840.114 350.1.13.10 4.2.7.2.686 [id number] [facility] 2022-07-12 00:00:00 2022-07-12 00:00:00 Letter (Out) Prerna Cami [facility] 1.2.840.114 350.1.13.10 4.2.7.2.686 [id number] [facility] 2022-07-11 10:40:00 2022-07-11 11:16:25 Outpatient R NORA BARRERA [facility] [id number] [facility] 2022-07-11 10:40:00 2022-07-11 11:16:25 Urgent Care Nora Barrera Unknown, Attending PERSON [facility] 1.840.114 350.1.13.10 4.2.7.2.686 [id number] [facility] 2022-07-11 00:00:00 2022-07-11 00:00:00 Letter (Out) Nora Barrera PERSON [facility] [place] [facility] 1.840.114 350.1.13.10 4.2.7.2.686 [id number] [facility] 2022-06-29 11:15:00 2022-06-29 11:15:00 Outpatient R [facility] [id number] [facility] 2022-06-02 12:00:00 2022-06-02 12:53:47 Outpatient R SATHYA VASQUEZ [facility] [id number] [facility] 2022-06-02 12:00:00 2022-06-02 12:20:00 Urgent Care Ebbreannem, Sathya Unknown, Attending PERSON [facility] 1.840.114 350.1.13.10 4.2.7.2.686 [id number] [facility] 2022-06-01 09:30:00 2022-06-01 09:39:26 Outpatient R DON FINNEY [facility] [id number] [facility] 2022-06-01 09:30:00 2022-06-01 09:39:26 Office Visit Don Finney [facility] BLDG. 840.114 350.1.13.10 4.2.7.2.686 [id number] [facility] 2022-05-10 14:45:00 2022-05-10 15:05:00 Urgent Care Ebbreannem, Larryfortino Unknown, Attending PERSON [facility] 1.84.114 350.1.13.10 4.2.7.2.686 [id number] [facility] 2022-05-10 14:45:00 2022-05-10 14:45:00 Outpatient R SATHYA VASQUEZ [facility] [id number] [facility] 2022-05-10 00:00:00 2022-05-10 00:00:00 Letter (Out) Sathya Vasquez [facility] 1..840.114 350.1.13.10 4.2.7.2.686 [id number] [facility] 2022-05-03 20:02:00 2022-05-03 21:35:00 Emergency X TRACY BABIN [facility] E[facility] [id number] [facility] 2022-05-03 20:02:00 2022-05-03 21:35:00 Emergency Tracy Babin [facility] 1..840.114 350.1.13.10 4.2.7.2.686 [id number] [facility] 2022-04-30 00:00:00 2022-04-30 00:00:00 Letter (Out) Sath[facility] 1..840.114 350.1.13.10 4.2.7.2.686 [id number] [facility] 2022-04-26 09:40:00 2022-04-26 10:00:00 Urgent Care Sathya Vasquez, [facility] OFF[facility] 1..840.114 350.1.13.10 4.2.7.2.686 [id number] [facility] 2022-04-26 09:40:00 2022-04-26 09:40:00 Outpatient R SATHYA VASQUEZ [facility] [id number] [facility] 2022-04-12 12:40:00 2022-04-12 13:00:00 Urgent Care Sathya Vasquez Unknown, Attending PERSON [facility] 1.2.840.114 350.1.13.10 4.2.7.2.686 [id number] [facility] 2022-04-12 12:40:00 2022-04-12 12:40:00 Outpatient R SATHYA VASQUEZ [facility] [id number] [facility] 2022-04-12 00:00:00 2022-04-12 00:00:00 Orders Only Doctor Unassigned, Dierks [facility] 1..840.114 350.1.13.10 4.2.7.2.686 [id number] [facility] 2022-04-12 00:00:00 2022-04-12 00:00:00 Letter (Out) Sathya Vasquez PERSON [facility] 1..840.114 350.1.13.10 4.2.7.2.686 [id number] [facility] 2022-01-16 15:15:00 2022-01-16 15:15:00 Outpatient R MARIMAR JEWELL [facility] [id number] [facility] 2021-12-18 09:20:00 2021-12-18 10:35:00 Outpatient R NORA BARRERA [facility] [id number] [facility] 2021-12-18 09:20:00 2021-12-18 10:35:00 Urgent Care Nora Barrera Unknown, Attending PERSON [facility] 1..840.114 350.1.13.10 4.2.7.2.686 [id number] [facility] 2021-12-18 00:00:00 2021-12-18 00:00:00 Letter (Out) Nora Barrera [facility] 1.284114 350.1.13.10 4.2.7.2.686 [id number] [facility] 2021-12-14 09:20:00 2021-12-14 10:05:42 Outpatient R MITALI LOWERY [facility] [id number] [facility] 2021-12-14 09:20:00 2021-12-14 09:40:00 Urgent Care Mitali Lowery, Attending PERSON [facility] 1.284.114 350.1.13.10 4.2.7.2.686 [id number] [facility] 2021-12-14 00:00:00 2021-12-14 00:00:00 Letter (Out) Nickolas Marshall [facility]gent Care PERSON [facility] 1.84114 350.1.13.10 4.2.7.2.686 [id number] [facility] 2021-09-18 00:00:00 2021-09-18 00:00:00 Letter (Out) Devorah Zacarias [facility] 1.84114 350.1.13.10 4.2.7.2.686 [id number] [facility] 2021-09-17 12:20:00 2021-09-17 13:28:37 Outpatient R MARYSOL [facility] [id number] [facility] 2021-09-17 12:20:00 2021-09-17 13:28:37 [facility]gent [facility] 1.284.114 350.1.13.10 4.2.7.2.686 [id number] [facility] 2021-09-07 12:00:00 2021-09-07 12:20:00 Urgent Care Mitali Lowery [facility] 1.2.840.114 350.1.13.10 4.2.7.2.686 [id number] [facility] 2021-09-07 12:00:00 2021-09-07 12:00:00 Outpatient R MITALI LOWERY [facility] [id number] [facility] 2021-08-23 09:40:00 2021-08-23 10:09:29 Outpatient R BRUCE NORA [facility] [id number] [facility] 2021-08-23 09:40:00 2021-08-23 10:09:29 [facility] 1.2.840.114 350.1.13.10 4.2.7.2.686 [id number] [facility] 2021-08-23 09:40:00 2021-08-23 10:09:29 Outpatient R BRUCE NORA [facility] [id number] [facility] 2021-05-14 16:00:00 2021-05-14 16:04:22 Outpatient R CHRISTIANO MONROE [facility] [id number] [facility] 2021-05-14 16:00:00 2021-05-14 16:04:22 Urgent Care Christiano Monroe [facility] 1.2.840.114 350.1.13.10 4.2.7.2.686 [id number] [facility] 2021-04-29 09:00:00 2021-04-29 09:14:21 Outpatient R STEVIE GREGG [facility] [id number] [facility] 2021-04-29 00:00:00 2021-04-29 00:00:00 Orders Only Doctor Unassigned, Dierks [facility] 1.2840.114 350.1.13.10 4.2.7.2.686 [id number] [facility] 2021-02-26 22:03:00 2021-02-26 22:10:00 Emergency X SATHYA VASQUEZ [facility] ERT [id number] [facility] 2021-02-26 22:03:00 2021-02-26 22:10:00 Emergency Sathya Vasquez [facility] 1.2840.114 350.1.13.10 4.2.7.2.686 [id number] [facility] 2021-02-20 12:45:00 2021-02-20 13:00:00 Laboratory Only Only, Ang Db Test Thanh [facility] 1.2840.114 350.1.13.10 4.2.7.2.686 [id number] [facility] 2021-02-20 12:45:00 2021-02-20 12:45:00 Outpatient R THANH [facility] [id number] [facility] 2021-02-20 00:00:00 2021-02-20 00:00:00 Orders Only Doctor Unassigned, Dierks [facility] 1.2840.114 350.1.13.10 4.2.7.2.686 [id number] [facility] 2021-02-17 00:00:00 2021-02-17 00:00:00 Letter (Out) Devorah Zacarias [facility] 1.2840.114 350.1.13.10 4.2.7.2.686 [id number] [facility] 2021-02-15 16:15:00 2021-02-15 16:30:00 Laboratory Only Only, Ang Db Test Christiano [facility] 1..840.114 350.1.13.10 4.2.7.2.686 [id number] [facility] 2021-02-15 16:15:00 2021-02-15 16:15:00 Outpatient R MONROE LOYOLA [facility] [id number] [facility] 2020-05-25 16:00:00 2020-05-25 16:07:24 Outpatient Sharon SWAIN [facility] [id number] [facility] 2020-05-25 16:00:00 2020-05-25 16:00:00 Outpatient R WILIAM [facility] [id number] [facility] 2020-05-04 16:10:00 2020-05-04 15:56:54 Outpatient R WILIAM [facility] [id number] [facility] 2020-03-19 00:00:00 2020-03-19 00:00:00 Letter (Out) Chin [place] [facility] 1..840.114 350.1.13.10 4.2.7.2.686 [id number] 019 [id number] [facility] 2020-03-18 17:12:54 2020-03-18 17:32:54 Laboratory Only Lab, Adc Fam Mitali Moore [facility] Office Building One 1..840.114 350.1.13.10 4.2.7.2.686 [id number] [facility] 2020-03-18 17:20:00 2020-03-18 17:20:00 Outpatient R [facility] [id number] [facility] 2020-03-18 17:20:00 2020-03-18 17:20:00 Outpatient R [facility] [id number] [facility] 2020-03-13 00:00:00 2020-03-13 00:00:00 Letter (Out) Chin Walton [facility] 1.0.114 350.1.13.10 4.2.7.2.686 [id number] 019 [id number] [facility] 2020-03-11 15:40:00 2020-03-11 15:40:00 Outpatient R AREN PASCUAL [facility] [id number] [facility] 2020-03-11 15:06:51 2020-03-11 15:26:51 Laboratory Only Lab, Adc [facility] Pob I Mele [facility] Building One 1..114 350.1.13.10 4.2.7.2.686 [id number] [facility] 2020-02-15 00:00:00 2020-02-15 00:00:00 Letter (Out) Devorah Zacarias [facility] 1..114 350.1.13.10 4.2.7.2.686 [id number] [id number] [facility] 2020-02-15 00:00:00 2020-02-15 00:00:00 Patient Secure Msg Doctor Unassigned, Dierks [facility] 1.0.114 350.1.13.10 4.2.7.2.686 [id number] 019 [id number] [facility] 2020-02-14 15:41:47 2020-02-14 15:56:47 Nurse Visit Nurse, [facility] Unknown, Attending [facility] 1..114 350.1.13.10 4.2.7.2.686 [id number] [facility] 2020-02-14 15:45:00 2020-02-14 15:45:00 Outpatient R UNKNOWN, ATTENDING [facility] [id number] [facility] 2019-05-13 13:40:00 2019-05-13 13:40:00 Outpatient R TACHO CAIN [facility] [id number] [facility] 2019-05-11 00:00:00 2019-05-11 00:00:00 Telephone Lolly Michelle [facility] Building 1.2.840.114 350.1.13.10 4.2.7.2.686 [id number] [facility] 2019-05-11 00:00:00 2019-05-11 00:00:00 Telephone Lolly Michelle [facility] 1.2.840.114 350.1.13.10 4.2.7.2.686 [id number] 2019-05-06 00:00:00 2019-05-06 00:00:00 Orders Only Doctor Unassigned, Dierks [facility] 1.2.840.114 350.1.13.10 4.2.7.2.686 [id number] [facility] 2019-05-06 00:00:00 2019-05-06 00:00:00 Orders Only Doctor Unassigned, Dierks [facility] 1.2.840.114 350.1.13.10 4.2.7.2.686 [id number] 2019-05-04 14:51:49 2019-05-04 16:20:27 Ancillary Visit Lolly Michelle Craig L [facility] 1.2.840.114 350.1.13.10 4.2.7.2.686 [id number] [facility] 2019-05-04 14:51:49 2019-05-04 16:20:27 Ancillary Visit Lolly Michelle Anastasiya [facility] 1.2.840.114 350.1.13.10 4.2.7.2.686 [id number] 2019-04-23 14:16:23 2019-04-23 16:08:45 Ancillary Visit Michelle [facility] 1.2.840.114 350.1.13.10 4.2.7.2.686 [id number] [facility] 2019-04-23 14:16:23 2019-04-23 16:08:45 Ancillary Visit Lolly Michelle [facility] 1.2.840.114 350.1.13.10 4.2.7.2.686 [id number] 2019-04-22 14:24:40 2019-04-22 15:14:05 Ancillary Visit Guerline Navarrete Tacho Cain [facility] 1.2.840.114 350.1.13.10 4.2.7.2.686 [id number] [facility] 2019-04-22 14:24:40 2019-04-22 15:14:05 [facility] 1.2.840.114 350.1.13.10 4.2.7.2.686 [id number] 2019-04-16 15:20:00 2019-04-16 15:20:00 Outpatient R TACHO CAIN [facility] [id number] [facility] 2019-04-14 16:16:46 2019-04-14 16:56:46 Ancillary Visit Lolly Michelle Craig L [facility] 1.2.840.114 350.1.13.10 4.2.7.2.686 [id number] [facility] 2019-04-14 16:16:46 2019-04-14 16:56:46 Ancillary Visit Lolly Michelle Anastasiya [facility] 1.2.840.114 350.1.13.10 4.2.7.2.686 [id number] 2019-04-09 16:19:26 2019-04-09 17:01:53 Ancillary Visit Guerline Navarrete Tacho Cain [facility] 1.2.840.114 350.1.13.10 4.2.7.2.686 [id number] [facility] 2019-04-09 16:19:26 2019-04-09 17:01:53 Ancillary Visit Guerline Navarrete [facility] 1.2840.114 350.1.13.10 4.2.7.2.686 [id number] 2019-04-09 16:20:00 2019-04-09 16:20:00 Outpatient R TACHO CAIN [facility] [id number] [facility] 2019-03-31 08:04:37 2019-03-31 15:11:26 Ancillary Visit Lolly Michelle Craig L [facility] 1.2840.114 350.1.13.10 4.2.7.2.686 [id number] [facility] 2019-03-31 08:04:37 2019-03-31 15:11:26 Ancillary Visit Miguel Angel Nathanlanden Anastasiya [facility] 1.2840.114 350.1.13.10 4.2.7.2.686 [id number] 2019-03-31 00:00:00 2019-03-31 00:00:00 Orders Only Doctor Unassigned, Dierks [facility] 1.2.840.114 350.1.13.10 4.2.7.2.686 [id number] [id number] 2019-03-31 00:00:00 2019-03-31 00:00:00 Orders Only Doctor Unassigned, Dierks [facility] 1.2840.114 350.1.13.10 4.2.7.2.686 [id number] [facility] 2018-08-28 00:00:00 2018-08-28 00:00:00 Orders Only Doctor Unassigned, Dierks [facility] 1.2.840.114 350.1.13.10 4.2.7.2.686 [id number] 2018-08-28 00:00:00 2018-08-28 00:00:00 Orders Only Doctor Unassigned, Dierks [facility] 1.2.840.114 350.1.13.10 4.2.7.2.686 [id number] [facility] Results Test Description Test Time Test Comments Results Result [facility] (70180)2022-09-04 19:19:31* Test Item Value Reference Range Interpretation Comme nts NA (test code = 9574746634) 139 mmol/L 135-145 K (test code = 0390294003) 3.3 mmol/L 3.5-5.0 L CL (test code = 1435303121) 99 mmol/L 98-108 CO2 TOTAL (test code = 2137268238) 28 mmol/L 23-31 AGAP (test code = 1121518707) 12 2-16 BUN (test code = 5774750803) 8 mg/dL 7-23 GLUCOSE (test code = 4073461479) 92 mg/dL 70-110 CREATININE (test code = 5858814483) 0.73 mg/dL 0.60-1.25 TOTAL BILI (test code = 5205898653) 0.9 mg/dL 0.1-1.1 CALCIUM (test code = 6013418623) 9.5 mg/dL 8.6-10.6 T PROTEIN (test code = 6632637921) 9.3 g/dL 6.3-8.2 H ALBUMIN (test code = 6037671690) 4.6 g/dL 3.5-5.0 ALK PHOS (test code = 1976988200) 50 U/L 34-122 ALTv (test code = 1742-6) 85 U/L 5-50 H AST(SGOT) (test code = 8253013696) 44 U/L 13-40 H eGFR (test code = 4508083711) 137.0 mL/min/1.73m2 YONY (test code = YONY) Association of Glomerular Filtration Rate (GFR) and Staging of Kidney Disease* + --+ --+ ------+| GFR (mL/min/1.73 m2) ?| With Kidney Damage ?| ?Without Kidney Damage+ --------+ --------+ +| ?>90 ?| ?Stage one ?| ? Normal ?+ ---+ ---+ -------+| ?60-89 ?| ?Stage two ?| ? Decreased GFR ? + --+ --+ ------+| ?30-59 ?| ?Stage three ?| ? Stage three ? + --+ --+ ------+| ?15-29 ?| ?Stage four ? | ? Stage four ?+ ---+ ---+ -------+| ?<15 (or dialysis) ? ?| ?Stage five ? | ? Stage five ?+ ---+ ---+ -------+ *Each stage assumes the associated GFR level has been in effect for at least three months. ?Stages 1 to 5, with or without kidney disease, indicate chronic kidney disease. Notes: Determination of stages one and two (with eGFR >59mL/min/1.73 m2) requires estimation of kidney damage for at least three months as defined by structural or functional abnormalities of the kidney, manifested by either:Pathological abnormalities or Markers of kidney damage (including abnormalities in the composition of the blood or urine or abnormalities in imaging tests). Lab Interpretation (test code = 02961-5) Abnormal [facility] WITH [id number] 19:07:31* Test Item Value Reference Range Interpretation Comme nts WBC (test code = 6690-2) 8.23 See_Comment [Automated PublicBeta] The system which generated this result transmitted reference range: 4.20 - 10.70 10*3/?L. The reference range was not used to interpret this result as normal/abnormal. RBC (test code = 789-8) 5.17 See_Comment [Automated PublicBeta] The system which generated this result transmitted reference range: 4.26 - 5.52 10*6/?L. The reference range was not used to interpret this result as normal/abnormal. HGB (test code = 718-7) 14.7 g/dL 12.2-16.4 HCT (test code = 4544-3) 42.9 % 38.4-49.3 MCV (test code = 787-2) 83.0 fL 81.7-95.6 MCH (test code = 785-6) 28.4 pg 26.1-32.7 MCHC (test code = 786-4) 34.3 g/dL 31.2-35.0 RDW-SD (test code = 44489-6) 39.3 fL 38.5-51.6 RDW-CV (test code = 788-0) 13.1 % 12.1-15.4 PLT (test code = 777-3) 490 See_Comment H [Automated messa ge] The system which generated this result transmitted reference range: 150 - 328 10*3/?L. The reference range was not used to interpret this result as normal/abnormal. MPV (test code = 97166-8) 9.2 fL 9.8-13.0 L NRBC/100 WBC (test code = 1141169479) 0.0 See_Comment [Automated [employer] ssage] The system which generated this result transmitted reference range: 0.0 - 10.0 /100 WBCs. The reference range was not used to interpret this result as normal/abnormal. NRBC x10^3 (test code = 8246988417) See_Comment [Automated messa ge] The system which generated this result transmitted reference range: 10*3/?L. The reference range was not used to interpret this result as normal/abnormal. GRAN MAT (NEUT) % (test code = 770-8) 61.6 % IMM GRAN % (test code = 9794575928) 0.10 % LYMPH % (test code = 736-9) 31.0 % MONO % (test code = 5905-5) 5.5 % EOS % (test code = 713-8) 1.2 % BASO % (test code = 706-2) 0.6 % GRAN MAT x10^3(ANC) (test code = 6794714344) 5.07 10*3/uL 1.99-6.95 IMM GRAN x10^3 (test code = 9726091049) 0.00-0.06 LYMPH x10^3 (test code = 731-0) 2.55 10*3/uL 1.09-3.23 MONO x10^3 (test code = 742-7) 0.45 10*3/uL 0.36-1.02 EOS x10^3 (test code = 711-2) 0.10 10*3/uL 0.06-0.53 BASO x10^3 (test code = 704-7) 0.05 10*3/uL 0.01-0.09 Lab Interpretation (test code = 41347-3) Abnormal [facility] MOLECULAR [id number] 19:48:00* Test Item Value Reference Range Interpretation Comme nts POCT Molecular FluA (test co de = 51286-8) Negative Negative POCT Molecular FluB (test co de = 36915-1) Negative Negative Lab Interpretation (test cod e = 45336-9) Normal [facility] MOLECULAR JHP4239-25-16 19:48:00* Test Item Value Reference Range Interpretation Comme nts POCT Molecular FluA (test co de = 40935-1) Negative Negative POCT Molecular FluB (test co de = 59995-8) Negative Negative Lab Interpretation (test cod e = 53336-8) Normal [facility] MOLECULAR PVM1134-97-18 19:48:00* Test Item Value Reference Range Interpretation Comme nts POCT Molecular FluA (test co de = 49181-9) Negative Negative POCT Molecular FluB (test co de = 79980-0) Negative Negative Lab Interpretation (test cod e = 75364-4) Normal [facility] MOLECULAR EZS3422-59-71 19:48:00* Test Item Value Reference Range Interpretation Comme nts POCT Molecular FluA (test co de = 28124-8) Negative Negative POCT Molecular FluB (test co de = 02801-7) Negative Negative Lab Interpretation (test cod e = 05479-7) Normal [facility] MOLECULAR [id number] 19:48:00* Test Item Value Reference Range Interpretation Comme nts POCT Molecular FluA (test co de = 06421-4) Negative Negative POCT Molecular FluB (test co de = 64203-4) Negative Negative Lab Interpretation (test cod e = 07097-4) Normal [facility] SARS-COV-2 ANTIGEN (BINAX NOW)2022-08-19 19:33:00* Test Item Value Reference Range Interpretation Comme nts POCT SARS-COV-2 ANTIGEN (alondra t code = 22537-8) Not Detected Not Detected On board controls acceptable with C Line (test code = 3574) Yes Lab Interpretation (test cod e = 52738-3) Normal [facility] SARS-COV-2 ANTIGEN (BINAX NOW)2022-08-19 19:33:00* Test Item Value Reference Range Interpretation Comme nts POCT SARS-COV-2 ANTIGEN (alondra t code = 39781-0) Not Detected Not Detected On board controls acceptable with C Line (test code = 3574) Yes Lab Interpretation (test cod e = 42812-1) [facility] SARS-COV-2 ANTIGEN (BINAX NOW)2022-08-19 19:33:00* Test Item Value Reference Range Interpretation Comme nts POCT SARS-COV-2 ANTIGEN (alondra t code = 96934-7) Not Detected Not Detected On board controls acceptable with C Line (test code = 3574) Yes Lab Interpretation (test cod e = 74901-8) [facility] SARS-COV-2 ANTIGEN (BINAX NOW)2022-08-19 19:33:00* Test Item Value Reference Range Interpretation Comme nts POCT SARS-COV-2 ANTIGEN (alondra t code = 53255-2) Not Detected Not Detected On board controls acceptable with C Line (test code = 3574) Yes Lab Interpretation (test cod e = 57654-7) Normal [facility] SARS-COV-2 ANTIGEN (BINAX NOW)2022-08-19 19:33:00* Test Item Value Reference Range Interpretation Comme nts POCT SARS-COV-2 ANTIGEN (alondra t code = 95370-7) Not Detected Not Detected On board controls acceptable with C Line (test code = 3574) Yes Lab Interpretation (test cod e = 10479-4) Normal [facility] MOLECULAR [id number] 19:24:19* Test Item Value Reference Range Interpretation Comme nts POCT Molecular Strep (test c ode = 04765-0) Negative Negative Lab Interpretation (test cod e = 41517-7) Normal [facility] MOLECULAR [id number] 19:24:19* Test Item Value Reference Range Interpretation Comme nts POCT Molecular Strep (test c ode = 28216-9) Negative Negative Lab Interpretation (test cod e = 03562-8) Normal [facility] MOLECULAR [id number] 19:24:19* Test Item Value Reference Range Interpretation Comme nts POCT Molecular Strep (test c ode = 85847-0) Negative Negative Lab Interpretation (test cod e = 03801-1) [facility] MOLECULAR [id number] 19:24:19* Test Item Value Reference Range Interpretation Comme nts POCT Molecular Strep (test c ode = 89137-7) Negative Negative Lab Interpretation (test cod e = 25382-3) [facility] MOLECULAR [id number] 19:24:19* Test Item Value Reference Range Interpretation Comme nts POCT Molecular Strep (test c ode = 41722-3) Negative Negative Lab Interpretation (test cod e = 10364-3) [facility] MOLECULAR [id number] 17:32:56* Test Item Value Reference Range Interpretation Comme nts POCT Molecular Strep (test c ode = 82693-3) Negative Negative Lab Interpretation (test cod e = 22299-8) [facility] MOLECULAR [id number] 15:09:53* Test Item Value Reference Range Interpretation Comme nts POCT Molecular FluA (test co de = 80937-8) Negative Negative POCT Molecular FluB (test co de = 93366-0) Negative Negative Lab Interpretation (test cod e = 62383-2) [facility] MOLECULAR [id number] 15:04:19* Test Item Value Reference Range Interpretation Comme nts POCT Molecular Strep (test c ode = 21343-5) Negative Negative Lab Interpretation (test cod e = 10189-0) [facility] SARS-COV-2 ANTIGEN (BINAX NOW)2022-04-26 15:04:00* Test Item Value Reference Range Interpretation Comme nts POCT SARS-COV-2 ANTIGEN (alondra t code = 25061-8) Positive Not Detected A On board controls acceptable with C Line (test code = 3574) Yes Lab Interpretation (test cod e = 14555-7) Abnormal [facility] MOLECULAR [id number] 19:30:25* Test Item Value Reference Range Interpretation Comme nts POCT Molecular Strep (test c ode = 99414-3) Positive Negative A Lab Interpretation (test cod e = 29011-8) Abnormal [facility] MOLECULAR [id number] 16:10:06* Test Item Value Reference Range Interpretation Comme nts POCT Molecular Strep (test c ode = 26097-4) Negative Negative Lab Interpretation (test cod e = 19392-3) Normal [facility] MOLECULAR [id number] 14:45:48* Test Item Value Reference Range Interpretation Comme nts POCT Molecular FluA (test co de = 41824-7) Positive Negative A Lab Interpretation (test cod e = 14634-5) Abnormal [facility] MOLECULAR [id number] 17:48:29* Test Item Value Reference Range Interpretation Comme nts POCT Molecular Strep (test c ode = 45517-7) Negative Negative Lab Interpretation (test cod e = 41907-7) Normal [facility] MOLECULAR [id number] 15:04:52* Test Item Value Reference Range Interpretation Comme nts POCT Molecular Strep (test c ode = 99664-5) Positive Negative A Lab Interpretation (test cod e = 73184-3) Abnormal [facility] Notes Date/Time Note Provider Source 2022-09-11 13:30:00 M8t3KXg8i2O1J2dcgLLB wDzbiwz4+RSX/ 32IyQN//qqZTc9WQ/7vydbUkgWL8xht01 03-10-00T13:30:00 Lab orders Verified by Cristopher Driver 09/11/2022 1:53 PM 54674-7Hqahj UleyYH7123-62-36L15:53:42Nurse NoteTXT1.2.840.949655.1.13.104.2. 7.2.734239|[id number] for patient zwpn58193-8Klxyb BcaeQS128853844Otjgcm [address] 434TXUWNCTXHJHZFCGOCUAKZX0019-86- 01T13:53:421.2.840.934225.1.72.3. 15|1.2.840.023635.1.13.104.2.7.2. [id number] Kalenpreetromi Driver [facility] 2022-09-11 13:30:00 OA4rJJDaHokVk26stG+Z cwhLHkSgmZdta Fjglxe80/e+80P8ox/U2dnMVt3XzxWy78 03-10-00T13:30:00 Images from the original note were not included.Venipuncture collection performed by clean technique on the left anticubitus. Total of 1 attempts were made. Slight pressure and a bandage/dressing were applied to the site(s). The patient experienced no complications. The following specimens were processed according to instructions and sent to [facility] laboratories per lab order on 09/11/2022: LT BLUE SST 1 RED LAV 1 PPT DK GREEN (LiHep) DK GREEN (SodH) LEO DK BLUE (K2) DK BLUE (S) ACD Blood Culture NIPT/NTD 60199-2Frkyw NgddJX1112-42-20Z33:55:09Nurse NoteTXT1.2.840.804780.1.13.104.2. 7.2.658248|[id number] for patient iefk02659-2Ytlwh NoteLN[address] 480EITDSKSFNWZPWNOUCFRORD8634-60- 01T13:55:091.2.840.656977.1.72.3. 15|1.2.840.339019.1.13.104.2.7.2. [id number] [facility] 2022-09-04 15:08:07 tzJKmgSEbWdDHwM1dVSU G1sNoDT6FkHJb 5sIJbfZtPUWznDZ3tOlB6rFBb4r47rA24 02-09-24T15:08:07 Verbalized understanding of discharge instructions. No signs of distress observed. RR even and unlabored. Encouraged to return to ER if symptoms worsen. 06132-0Kkzahrydm department LhtwQG1166-48-17H09:08:13[facility] NoteTXT1.2.840.058074.1.13.104.2. 7.2.134543|[id number] for patient [address] 388XSYTREIJOINNPACZBRAUNR4999-74- 25T15:08:131.2.840.259241.1.72.3. 15|1.2.840.978169.1.13.104.2.7.2. 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 After cooling down just experiencing light headedness now. 80135-2Uyrknpryb department Triage ztpiZQ0360-28-80K43:33:35Emergenc y department Triage noteTXT1.2.840.366181.1.13.104.2. 7.2.900732|7396200236QTCxargelae for patient watl961790341Zkjppxu E Russell RN[address] 200JXSIISULRIHKQWMKVMUXTX8819-25- 25T12:33:351.2.840.319650.1.72.3. 15|1.2.840.642329.1.13.104.2.7.2. [id number] Jerome Franco RN [facility] 2022-08-23 10:45:13 WoPWS6PNU/bTODXM28T9 yuIuvGm4qUFFZ FMeVyuO+ZyZ3DNs70LKWagocY9/teXu20 02-09-12T10:45:13 ATC, left message to return call. 99502-0Ebdteskum encounter RojpCQ4708-30-32T80:45:29Telephon e encounter NoteTXT1.2.840.816065.1.13.104.2. 7.2.997860|[id number] for patient waky17487-2JpalHPZKWOEZUFPUpgnexr ed C-CDA narrative [id number] Olivo MA[address]TX[address] 635XVDSAKMARXPMMXZIPDOPVC0004-17- 13T10:45:291.2.840.055755.1.72.3. 15|1.2.840.858396.1.13.104.2.7.2. [id number] Hailey Olivo MA [facility]"
--- NOTE | 2023-04-10 21:06 | RAD REPORT ---
EXAM DESCRIPTION: RAD - Chest Pa And Lat (2 Views) - 04/10/2023 8:58 pm CLINICAL HISTORY: CONGESTION Chest pain. COMPARISON: Chest Pa And Lat (2 Views) dated 08/28/2022; Chest Pa And Lat (2 Views) dated 05/01/2016 FINDINGS: The lungs are clear. The heart is normal in size. No displaced fractures. IMPRESSION: No acute or concerning finding suspected.
[2023-04-10 21:23] LABS: SARS-CoV-2 Antigen Rapid Res Negative (Negative)
--- NOTE | 2023-04-10 22:34 | ER ---
Nurse's Notes [facility] Name: Cliff Kang Age: 22 yrs Sex: Male : 2000 Arrival Date: 04/10/2023 Time: 19:51 Bed DX3 Private MD: Diagnosis: Acute bronchitis, unspecified Presentation: 04/10 20:14 Chief complaint: Patient states: Bad cough for the last 2 days. My girlfriend had a vc1 sinus infection and he thinks he got it. Coronavirus screen: Client denies travel out of the [place] in the last 14 days. cough unrelated to allergies, Client presents with at least one sign or symptom that may indicate coronavirus-19. Ebola Screen: Patient negative for fever greater than or equal to 101.5 degrees Fahrenheit, and additional compatible Ebola Virus Disease symptoms Patient denies exposure to infectious person. Patient denies travel to an Ebola-affected area in the 21 days before illness onset. No symptoms or risks identified at this time. Initial Sepsis Screen: Does the patient meet any 2 criteria? No. Patient's initial sepsis screen is negative. Does the patient have a suspected source of infection? No. Patient's initial sepsis screen is negative. Risk Assessment: Do you want to hurt yourself or someone else? Patient reports no desire to harm self or others. Onset of symptoms was April 08, 2023. 20:14 Method Of Arrival: Ambulatory vc1 20:14 Acuity: MIRNA 4 vc1 Historical: - Allergies: 20:15 Tessalon Perles (Anxiety); vc1 - PMHx: 20:15 ADD/ADHD; Asthma; Depression; mood disorder; vc1 - PSHx: 20:15 Left ACL Repair; vc1 - Immunization history:: Client reports receiving the 2nd dose of the Covid vaccine, Flu vaccine status is unknown. - Social history:: Smoking status: Patient/guardian denies using tobacco. - Family history:: not pertinent. Screenin:44 [facility] ED Fall Risk Assessment (Adult) History of falling in the last 3 months, rv including since admission No falls in past 3 months (0 pts) Score/Fall Risk Level 0 - 2 = Low Risk Oriented to surroundings, Maintained a safe environment, Educated pt \T\ family on fall prevention, incl call for assistance when getting out of bed. Abuse screen: Denies threats or abuse. Denies injuries from another. Nutritional screening: No deficits noted. Tuberculosis screening: No symptoms or risk factors identified. Assessment: 22:44 General: Appears in no apparent distress. Behavior is calm, cooperative. Pain: Denies rv pain. Neuro: Level of Consciousness is awake, alert, obeys commands, Oriented to person, place, time, situation. Cardiovascular: Capillary refill < 3 seconds Patient's skin is warm and dry. Respiratory: Airway is patent Respiratory effort is even, unlabored, Breath sounds are clear bilaterally. Derm: Skin is intact. Vital Signs: 20:14 Weight 83.91 kg; Height 5 ft. 5 in. ; Pain 0/10; vc1 20:18 BP 122 / 72; Pulse 67; Resp 17; Temp 98.4; Pulse Ox 98% ; vc1 22:44 BP 119 / 76; Pulse 66; Resp 16; Temp 98; Pulse Ox 99% on R/A; rv 20:14 Body Mass Index 30.79 (83.91 kg, 165.1 cm) vc1 20:14 Pain Scale: Adult vc1 [place] Coma Score: 22:44 Eye Response: spontaneous(4). Motor Response: obeys commands(6). Verbal Response: rv oriented(5). Total: 15. ED Course: 19:55 Patient arrived in ED. mr 20:15 Triage completed. vc1 20:15 Angel Pete MD is Attending Physician. sp4 20:16 Arm band placed on right wrist. vc1 21:00 Chest Pa And Lat (2 Views) XRAY In Process Unspecified. EDMS 22:44 No provider procedures requiring assistance completed. Patient did not have IV access rv during this emergency room visit. Administered Medications: 21:15 Drug: Dextromethorphan-Guaifenesin PO Liquid 10 mg-100 mg/5 mL 10 ml PO once Route: PO; tl4 22:43 Follow up: Response: No adverse reaction; Marked relief of symptoms rv 21:15 Drug: Promethazine PO 25 mg PO once Route: PO; tl4 22:43 Follow up: Response: No adverse reaction rv 22:43 Drug: AZITHromycin PO 500 mg PO once Route: PO; rv 22:43 Follow up: Response: Medication administered at discharge. rv Outcome: 22:33 Discharge ordered by . sp4 22:44 Discharged to home ambulatory, rv 22:44 Condition: good 22:44 Discharge instructions given to patient, Instructed on discharge instructions, follow up and referral plans. medication usage, Demonstrated understanding of instructions, follow-up care, medications, Prescriptions given X 3, 22:45 Patient left the ED. rv Signatures: Dispatcher [employer] EDAZ MongeJacey, Reg Reg mr DonJose, RN RN rv Nikia Vaca, RN RN 1 Angel Pete MD MD sp4 FelisaRuben connor, RN RN tl4
--- NOTE | 2023-04-10 22:34 | EDPHYS ---
Physician Documentation [facility] Name: Cliff Kang Age: 22 yrs Sex: Male : 2000 Arrival Date: 04/10/2023 Time: 19:51 Bed DX3 Private MD: ED Physician Angel Pete HPI: 04/10 20:16 This 22 yrs old Male presents to ER via Ambulatory with complaints of Cough, sp4 Congestion. 23:58 22-year-old male presents with several days of cough, congestion, yellow sputum with sp4 cough. Also some pleuritic chest discomfort. . 23:59 Patient reports worsening of his cough in the last 2 days.. sp4 Historical: - Allergies: 20:15 Tessalon Perles (Anxiety); vc1 - PMHx: 20:15 ADD/ADHD; Asthma; Depression; mood disorder; vc1 - PSHx: 20:15 Left ACL Repair; vc1 - Immunization history:: Client reports receiving the 2nd dose of the Covid vaccine, Flu vaccine status is unknown. - Social history:: Smoking status: Patient/guardian denies using tobacco. - Family history:: not pertinent. ROS: 23:59 Constitutional: Negative for fever, chills, and weight loss, positive for cough, sp4 positive for congestion, positive for yellow sputum, positive for expectoration 23:59 All other systems are negative, Exam: 23:59 Constitutional: This is a well developed, well nourished patient who is awake, alert, sp4 and in no acute distress. Head/Face: Normocephalic, atraumatic. Eyes: Pupils equal round and reactive to light, extra-ocular motions intact. Lids and lashes normal. Conjunctiva and sclera are not injected. Cornea within normal limits. Periorbital areas with no swelling, redness, or edema. ENT: Nares patent. No nasal discharge, no septal abnormalities noted. Tympanic membranes are normal and external auditory canals are clear. Oropharynx with no redness, swelling, or masses, exudates, or evidence of obstruction, uvula midline. Mucous membranes moist. Neck: Trachea midline, no thyromegaly or masses palpated, and no cervical lymphadenopathy. Supple, full range of motion without nuchal rigidity, or vertebral point tenderness. Chest/axilla: Normal chest wall appearance and motion. Nontender with no deformity. No lesions are appreciated. Cardiovascular: Regular rate and rhythm with a normal S1 and S2. No gallops, murmurs, or rubs. Normal PMI, no JVD. No pulse deficits. Respiratory: Lungs have equal breath sounds bilaterally, clear to auscultation and percussion. No rales, rhonchi or wheezes noted. No increased work of breathing, no retractions or nasal flaring. Abdomen/GI: Soft, with normal bowel sounds. No distension or tympany. No guarding or rebound. No evidence of tenderness throughout. Back: No spinal tenderness. No costovertebral tenderness. Skin: Warm, dry with normal turgor. Normal color with no rashes, no lesions, and no evidence of cellulitis. MS/ Extremity: Pulses equal, no cyanosis. Neurovascular intact. Full, normal range of motion. Neuro: Awake and alert, GCS 15, oriented to person, place, time, and situation. Cranial nerves II-XII grossly intact. Motor strength 5/5 in all extremities. Sensory grossly intact. Psych: Awake, alert, with orientation to person, place and time. Behavior, mood, and affect are within normal limits Vital Signs: 20:14 Weight 83.91 kg; Height 5 ft. 5 in. ; Pain 0/10; vc1 20:18 BP 122 / 72; Pulse 67; Resp 17; Temp 98.4; Pulse Ox 98% ; vc1 22:44 BP 119 / 76; Pulse 66; Resp 16; Temp 98; Pulse Ox 99% on R/A; rv 20:14 Body Mass Index 30.79 (83.91 kg, 165.1 cm) vc1 20:14 Pain Scale: Adult vc1 [place] Coma Score: 22:44 Eye Response: spontaneous(4). Motor Response: obeys commands(6). Verbal Response: rv oriented(5). Total: 15. MDM: 20:20 Patient medically screened. sp4 23:59 Differential Diagnosis: Bronchitis Influenza Upper Respiratory Infection Sinusitis sp4 Pharyngitis Otitis Media. Data reviewed: vital signs, nurses notes, lab test result(s), Flu: negative radiologic studies, plain films. Consideration of Admission/Observation Escalation of care including admission/observation considered. ED course: Some medication has improved the cough. ED course: Patient stable for discharge home with p.o. Zithromax for 5 days and as needed medications for cough. 04/10 20:15 Order name: SARS RAPID; Complete Time: 22:29 sp4 04/10 20:15 Order name: Influenza Screen (a \T\ B); Complete Time: 22:29 sp4 04/10 20:25 Order name: Chest Pa And Lat (2 Views) XRAY; Complete Time: 22: sp4 Administered Medications: 21:15 Drug: Dextromethorphan-Guaifenesin PO Liquid 10 mg-100 mg/5 mL 10 ml PO once Route: PO; tl4 22:43 Follow up: Response: No adverse reaction; Marked relief of symptoms rv 21:15 Drug: Promethazine PO 25 mg PO once Route: PO; tl4 22:43 Follow up: Response: No adverse reaction rv 22:43 Drug: AZITHromycin PO 500 mg PO once Route: PO; rv 22:43 Follow up: Response: Medication administered at discharge. rv Disposition Summary: 04/10/23 22:33 Discharge Ordered Notes: Location: Home sp4 Problem: new sp4 Symptoms: have improved sp4 Condition: Stable sp4 Diagnosis - Acute bronchitis, unspecified sp4 Followup: sp4 - With: Private Physician - When: 7 - 10 days - Reason: Re-evaluation by your physician Discharge Instructions: - Discharge Summary Sheet sp4 - Acute Bronchitis, Adult sp4 Forms: - Patient Portal Instructions sp4 Prescriptions: - dextromethorphan-guaifenesin 60-1,200 mg Oral Tablet, Extended Release 12 hr - take 1 tablet ORAL route every 12 hours PRN cough and congestion; 42 tablet; sp4 Refills: 0, Product Selection Permitted - Zithromax Z-Adriano 250 mg Oral Tablet - take 1 tablet ORAL route as directed for 5 days Day 1 - take two (2) tablets sp4 one time. Day 2, 3, 4 , 5 take one (1) tablet once daily.; 6 tablet; Refills: 0, Product Selection Permitted - promethazine 25 mg Oral tablet - take 1 tablet ORAL route every 6 hours As needed PRN nausea; 30 tablet; sp4 Refills: 0, Product Selection Permitted Signatures: Dispatcher [employer] Jose Morillo RN RN rv Nikia Vaca RN RN vc1 Angel Pete MD MD sp4 Ruben Rivera, RN RN tl4
[2023-04-10 23:32] VITALS: BP 119/76; TEMP 98; O2SAT 99
== END ==
LOC: ER 19:51
DX: J20.9 Acute bronchitis, unspecified (principal); Z11.52 Encounter for screening for COVID-19
CPT/HCPCS: 36415; 71046; 87804; 87811; Q0169

== ENCOUNTER → 2023-04-26 | Emergency (ER) | payer SELFPAY ==
--- OUTSIDE RECORDS SUMMARY | 2023-04-26 16:48 | XMS REPORT | Continuity of Care Document ---
Author Name Unknown Address [address] [facility]. [address] [place] [address] [facility] thconnect Address [address] [facility] [address] [place] [address] Care Team Providers Care Debt Counselor Name Role Phone Robert Amin Primary Care Physician [phone] ROBERT GUERIN Attending Clinician Unavailable NORA BARRERA Attending Clinician Unavailable Nick[facility] Attending Clinician Un available Unknown, Attending Attending Clinician Unavailab Nora Vasquez MD Attending Clinician [phone] GISSEL NORRIS Attending Clinician Unavailable CAMPBELL ZIMMERMAN Attending Clinician Unavailable Campbell Riggs Attending Clinician [phone] OVI STILES Attending Clinician Unavailable Ovi Stiles PA-C Attending Clinician [phone] MONROE ALVARADO Attending Clinician Unavailable Monroe Mo Attending Clinician [phone] Robert Amin Attending Clinician [phone] Nickolas Duarnd Attending Clinician Unavailable ELDA DOWNS Attending Clinician Unavailab Elda Smith DO Attending Clinician [phone] Sathya Sherwood Attending Clinician [phone] SHERIETONOJulianSATHYA Attending Clinician Unavailable Cami Graff RN Attending Clinician Unavailable DON CORTEZ Attending Clinician Unavailable Don Cortez MD Attending Clinician [phone] TRACY BABIN Attending Clinician Unavailable Tracy Babin MD Attending Clinician [phone] Doctor Unassigned, Sierra Madre Attending Clinician U MARIMAR Pereira Attending Clinician Unavailable MITALI PHILLIPS Attending Clinician Unavailab oh Phillips POLYSOM TECHMitali Attending Clinician + [phone] Provider, [facility] Attending Clinician Unavailable Devorah Zacarias RN Attending Clinician Unavailab STEVIE Willoughby Attending Clinician Unavailable Shivani Damico Attending Clinician [phone] Stevie Gregg PA-C Attending Clinician [phone] Only, Ang Db Test Attending Clinician UnavailFarrukh Simmons Attending Clinician [phone] FARRUKH HYMAN Attending Clinician UnavailLEA Antony Attending Clinician Unavailable Chin Walton MD Attending Clinician [phone] Lab, Adc Fam Pob I Attending Clinician Unavailab AREN Solitario Attending Clinician Unavailable Aren Anguiano Attending Clinician [phone] Nurse, [facility] Attending Clinician Unavailable UNKNOWN, ATTENDING Attending Clinician Unavailab TACHO Gamboa Attending Clinician Unavailabelardo Michelle PTLolly Attending Clinician Unavailab Tacho Gamboa MD Attending Clinician [phone] Guerline Navarrete PTA Attending Clinician Unavail able TRACY BABIN Admitting Clinician Unavailable Payers Payer Name Policy Type Policy Number Effective Date Expirati on Date Source Problems Condition Name Condition Details Condition Category Status Onset Date Resolution Date Last Treatment Date Treating Clinician Comments Source Acute cough Acute cough Disease Active 09-11 00:00: 00 [facility] Rupture of anterior cruciate ligament of left knee, initial encounter Rupture of anterior cruciate ligament of left knee, initial encounter Disease Active 2017-02 00:00: 00 Overview: Formattin g of this note might be different from the original. Added automatic ally from request for surgery [id number] [facility] Allergies, Adverse Reactions, Alerts Allergy Name Allergy Type Status Severity Reaction(s) Onset Date Inactive Date Treating Clinician Comments Source BENZONAT ATE DRUG INGREDI Active Anxiety 05-10 00:00: 00 [facility] Benzonat ate Propensi ty to adverse reaction s Active Anxiety 05-10 00:00: 00 [facility] NO KNOWN ALLERGIE S Drug Class Active [facility] Social History Social Habit Start Date Stop Date Quantity Comments [facility] History of tobacco use Cigarette Smoker [facility] Alcohol intake 2023-04-26 00:00:00 2023-04-26 00:00:00 Current drinker of alcohol (finding) [facility] History of Social function 2022-09-11 00:00:00 2022-09-11 00:00:00 [facility] Exposure to SARS-CoV-2 (event) 2022-07-01 00:00:00 2022-07-11 10:50:00 Not sure [facility] Tobacco use and exposure 2022-04-12 00:00:00 2022-04-12 00:00:00 User of smokeless tobacco [facility] Cigarettes smoked current (pack per day) - Reported 2022-04-12 00:00:00 2022-04-12 00:00:00 [facility] Cigarette pack-years 2022-04-12 00:00:00 2022-04-12 00:00:00 [facility] Tobacco Comment 2022-04-12 00:00:00 2022-04-12 00:00:00 vape [facility] Alcohol Comment 2022-04-12 00:00:00 2022-04-12 00:00:00 ocassional [facility] Sex Assigned At 2002 00:00:00 2000 00:00:00 [facility] Smoking Status Start Date Stop Date Source Smokes tobacco daily 2022-04-12 00:00:00 [facility] Never smoked tobacco [facility] Medications Ordered Medication Name Filled Medication Name Start Date Stop Date Current Medication? Ordering Clinician Indication Dosage Frequency Signature (SIG) Comments Components Source ofloxacin 0.3 % otic drops 10-18 00:00: 00 11-18 04:59 :00 No [id number] 5[drp] Place 5 Drops in left ear at bedtime for 30 days. [facility] ofloxacin 0.3 % otic drops 10-18 00:00: 00 11-18 04:59 :00 No [id number] 5[drp] Place 5 Drops in left ear at bedtime for 30 days. [facility] ketorolac (TORADOL) injection 30 mg 09-30 23:45: 00 09-30 22:43 :00 No [id number] 30mg [facility] ketorolac (TORADOL) injection 30 mg 09-30 23:45: 00 09-30 22:43 :00 No [id number] 30mg 30 mg, Intramuscu lar, ONCE, 1 dose, On 09/30/22 at 1845, Routine [facility] ketorolac (TORADOL) injection 30 mg 09-30 23:45: 00 09-30 22:43 :00 No [id number] 30mg [facility] ketorolac (TORADOL) injection 30 mg 09-30 23:45: 00 09-30 22:43 :00 No [id number] 30mg 30 mg, Intramuscu lar, ONCE, 1 dose, On 09/30/22 at 1845, Routine [facility] ofloxacin 0.3 % otic drops 09-30 00:00: 00 10-11 04:59 :00 No [id number] 5[drp] Place 5 Drops in left ear in the morning and 5 Drops in the evening. Do all this for 10 days. [facility] ofloxacin 0.3 % otic drops 09-30 00:00: 00 10-11 04:59 :00 No [id number] 5[drp] Place 5 Drops in left ear in the morning and 5 Drops in the evening. Do all this for 10 days. [facility] azelastine 137 mcg (0.1 %) nasal spray 0 8-15 00:00: 00 Yes [id number] 1{spray } Use 1 Dawson in each nostril in the morning and 1 Dawson in the evening. Use in each nostril as directed [facility] azelastine 137 mcg (0.1 %) nasal spray 2022-0 8-15 00:00: 00 Yes [id number] 1{spray } Use 1 Dawson in each nostril in the morning and 1 Dawson in the evening. Use in each nostril as directed [facility] azelastine 137 mcg (0.1 %) nasal spray 2022-0 8-15 00:00: 00 Yes [id number] 1{spray } Use 1 Dawson in each nostril in the morning and 1 Dawson in the evening. Use in each nostril as directed [facility] azelastine 137 mcg (0.1 %) nasal spray 2022-0 8-15 00:00: 00 Yes [id number] 1{spray } Use 1 Dawson in each nostril in the morning and 1 Dawson in the evening. Use in each nostril as directed [facility] azelastine 137 mcg (0.1 %) nasal spray 2022-0 8-15 00:00: 00 Yes [id number] 1{spray } Use 1 Dawson in each nostril in the morning and 1 Dawson in the evening. Use in each nostril as directed [facility] azelastine 137 mcg (0.1 %) nasal spray 2022-0 8-15 00:00: 00 Yes [id number] 1{spray } Use 1 Dawson in each nostril in the morning and 1 Dawson in the evening. Use in each nostril as directed [facility] azelastine 137 mcg (0.1 %) nasal spray 2022-0 8-15 00:00: 00 Yes [id number] 1{spray } Use 1 Dawson in each nostril in the morning and 1 Dawson in the evening. Use in each nostril as directed [facility] azelastine 137 mcg (0.1 %) nasal spray 09-25 00:00: 00 Yes [id number] 1{spray } Use 1 Dawson in each nostril in the morning and 1 Dawson in the evening. Use in each nostril as directed [facility] azelastine 137 mcg (0.1 %) nasal spray 09-25 00:00: 00 Yes [id number] 1{spray } Use 1 Dawson in each nostril in the morning and 1 Dawson in the evening. Use in each nostril as directed [facility] dexamethaso ne (DECADRON) injection 10 mg 09-17 19:17: 00 09-17 19:18 :00 No [id number] 10mg [facility] dexamethaso ne (DECADRON) injection 10 mg 09-17 19:17: 00 09-17 19:18 :00 No [id number] 10mg 10 mg, Intramuscu lar, ONCE, 1 dose, On Sat09/17/22 at 1430, Routine [facility] methylPREDN ISolone (MEDROL, SUKHI,) 4 mg tablets 09-17 00:00: 00 Yes [id number] follow package directions [facility] azithromyci n (ZITHROMAX Z-SUKHI) 250 mg tablet 09-17 00:00: 00 Yes [id number] Z pack as directed. [facility] methylPREDN ISolone (MEDROL, SUKHI,) 4 mg tablets 09-17 00:00: 00 Yes [id number] follow package directions [facility] azithromyci n (ZITHROMAX Z-SUKHI) 250 mg tablet 09-17 00:00: 00 Yes [id number] Z pack as directed. [facility] methylPREDN ISolone (MEDROL, SUKHI,) 4 mg tablets 09-17 00:00: 00 Yes [id number] follow package directions [facility] azithromyci n (ZITHROMAX Z-SUKHI) 250 mg tablet 3-0 8-07 00:00: 00 Yes [id number] Z pack as directed. [facility] methylPREDN ISolone (MEDROL, SUKHI,) 4 mg tablets 2022-0 8- 00:00: 00 Yes [id number] follow package directions [facility] azithromyci n (ZITHROMAX Z-SUKHI) 250 mg tablet 3-0 8- 00:00: 00 Yes [id number] Z pack as directed. [facility] methylPREDN ISolone (MEDROL, SUKHI,) 4 mg tablets 2022-0 8- 00:00: 00 Yes [id number] follow package directions [facility] azithromyci n (ZITHROMAX Z-SUKHI) 250 mg tablet 3-0 8 00:00: 00 Yes [id number] Z pack as directed. [facility] methylPREDN ISolone (MEDROL, SUKHI,) 4 mg tablets 2022-0 8- 00:00: 00 Yes [id number] follow package directions [facility] azithromyci n (ZITHROMAX Z-SUKHI) 250 mg tablet 2022-0 8 00:00: 00 Yes [id number] Z pack as directed. [facility] methylPREDN ISolone (MEDROL, SUKHI,) 4 mg tablets 2022-0 8- 00:00: 00 Yes [id number] follow package directions [facility] azithromyci n (ZITHROMAX Z-SUKHI) 250 mg tablet 2022-0 8- 00:00: 00 Yes [id number] Z pack as directed. [facility] methylPREDN ISolone (MEDROL, SUKHI,) 4 mg tablets 3-0 8- 00:00: 00 Yes [id number] follow package directions [facility] azithromyci n (ZITHROMAX Z-SUKHI) 250 mg tablet 3-0 8- 00:00: 00 Yes [id number] Z pack as directed. [facility] methylPREDN ISolone (MEDROL, SUKHI,) 4 mg tablets 2022-0 8- 00:00: 00 Yes [id number] follow package directions [facility] azithromyci n (ZITHROMAX Z-SUKHI) 250 mg tablet 09-17 00:00: 00 Yes [id number] Z pack as directed. [facility] methylPREDN ISolone (MEDROL, SUKHI,) 4 mg tablets 09-17 00:00: 00 Yes [id number] follow package directions [facility] azithromyci n (ZITHROMAX Z-SUKHI) 250 mg tablet 09-17 00:00: 00 Yes [id number] Z pack as directed. [facility] methylPREDN ISolone (MEDROL, SUKHI,) 4 mg tablets 09-17 00:00: 00 Yes [id number] follow package directions [facility] azithromyci n (ZITHROMAX Z-SUKHI) 250 mg tablet 09-17 00:00: 00 Yes [id number] Z pack as directed. [facility] codeine-gua ifenesin 10-100 mg/5 mL oral solution 09-17 00:00: 00 09-23 04:59 :00 No 10mL Take 10 mL by mouth every 6 (six) hours as needed for Cough for up to 5 days. Indication s: cough [facility] codeine-gua ifenesin 10-100 mg/5 mL oral solution 09-17 00:00: 00 09-23 04:59 :00 No 10mL Take 10 mL by mouth every 6 (six) hours as needed for Cough for up to 5 days. Indication s: cough [facility] albuterol 90 mcg/actuati on inhaler 09-11 00:00: 00 Yes [id number] 2{puff} Inhale 2 Puffs every 6 (six) hours as needed for Wheezing or Shortness of Breath. [facility] cetirizine (ZYRTEC) 10 mg tablet 09-11 00:00: 00 Yes [id number] 10mg Take 1 tablet by mouth in the morning. [facility] Fluticasone -Salmeterol (ADVAIR DISKUS) 100-50 mcg/dose inhalation disk 0 8 00:00: 00 Yes [id number] 1{puff} Inhale 1 Puff every 12 (twelve) hours. [facility] albuterol 90 mcg/actuati on inhaler 09-11 00:00: 00 Yes [id number] 2{puff} Inhale 2 Puffs every 6 (six) hours as needed for Wheezing or Shortness of Breath. [facility] cetirizine (ZYRTEC) 10 mg tablet 09-11 00:00: 00 Yes [id number] 10mg Take 1 tablet by mouth in the morning. [facility] Fluticasone -Salmeterol (ADVAIR DISKUS) 100-50 mcg/dose inhalation disk 09-11 00:00: 00 Yes [id number] 1{puff} Inhale 1 Puff every 12 (twelve) hours. [facility] albuterol 90 mcg/actuati on inhaler 09-11 00:00: 00 Yes [id number] 2{puff} Inhale 2 Puffs every 6 (six) hours as needed for Wheezing or Shortness of Breath. [facility] cetirizine (ZYRTEC) 10 mg tablet 09-11 00:00: 00 Yes [id number] 10mg Take 1 tablet by mouth in the morning. [facility] Fluticasone -Salmeterol (ADVAIR DISKUS) 100-50 mcg/dose inhalation disk 09-11 00:00: 00 Yes [id number] 1{puff} Inhale 1 Puff every 12 (twelve) hours. [facility] albuterol 90 mcg/actuati on inhaler 8 00:00: 00 Yes [id number] 2{puff} Inhale 2 Puffs every 6 (six) hours as needed for Wheezing or Shortness of Breath. [facility] cetirizine (ZYRTEC) 10 mg tablet 8 00:00: 00 Yes [id number] 10mg Take 1 tablet by mouth in the morning. [facility] Fluticasone -Salmeterol (ADVAIR DISKUS) 100-50 mcg/dose inhalation disk 8 00:00: 00 Yes [id number] 1{puff} Inhale 1 Puff every 12 (twelve) hours. [facility] albuterol 90 mcg/actuati on inhaler 0 8 00:00: 00 Yes [id number] 2{puff} Inhale 2 Puffs every 6 (six) hours as needed for Wheezing or Shortness of Breath. [facility] cetirizine (ZYRTEC) 10 mg tablet 09-11 00:00: 00 Yes [id number] 10mg Take 1 tablet by mouth in the morning. [facility] Fluticasone -Salmeterol (ADVAIR DISKUS) 100-50 mcg/dose inhalation disk 09-11 00:00: 00 Yes [id number] 1{puff} Inhale 1 Puff every 12 (twelve) hours. [facility] albuterol 90 mcg/actuati on inhaler 09-11 00:00: 00 Yes [id number] 2{puff} Inhale 2 Puffs every 6 (six) hours as needed for Wheezing or Shortness of Breath. [facility] cetirizine (ZYRTEC) 10 mg tablet 09-11 00:00: 00 Yes [id number] 10mg Take 1 tablet by mouth in the morning. [facility] Fluticasone -Salmeterol (ADVAIR DISKUS) 100-50 mcg/dose inhalation disk 8 00:00: 00 Yes [id number] 1{puff} Inhale 1 Puff every 12 (twelve) hours. [facility] albuterol 90 mcg/actuati on inhaler 8 00:00: 00 Yes [id number] 2{puff} Inhale 2 Puffs every 6 (six) hours as needed for Wheezing or Shortness of Breath. [facility] cetirizine (ZYRTEC) 10 mg tablet 8 00:00: 00 Yes [id number] 10mg Take 1 tablet by mouth in the morning. [facility] Fluticasone -Salmeterol (ADVAIR DISKUS) 100-50 mcg/dose inhalation disk 0 8 00:00: 00 Yes [id number] 1{puff} Inhale 1 Puff every 12 (twelve) hours. [facility] albuterol 90 mcg/actuati on inhaler 0 8 00:00: 00 Yes [id number] 2{puff} Inhale 2 Puffs every 6 (six) hours as needed for Wheezing or Shortness of Breath. [facility] cetirizine (ZYRTEC) 10 mg tablet 09-11 00:00: 00 Yes [id number] 10mg Take 1 tablet by mouth in the morning. [facility] Fluticasone -Salmeterol (ADVAIR DISKUS) 100-50 mcg/dose inhalation disk 09-11 00:00: 00 Yes [id number] 1{puff} Inhale 1 Puff every 12 (twelve) hours. [facility] albuterol 90 mcg/actuati on inhaler 09-11 00:00: 00 Yes [id number] 2{puff} Inhale 2 Puffs every 6 (six) hours as needed for Wheezing or Shortness of Breath. [facility] cetirizine (ZYRTEC) 10 mg tablet 0 09-11 00:00: 00 Yes [id number] 10mg Take 1 tablet by mouth in the morning. [facility] Fluticasone -Salmeterol (ADVAIR DISKUS) 100-50 mcg/dose inhalation disk 0 8- 00:00: 00 Yes [id number] 1{puff} Inhale 1 Puff every 12 (twelve) hours. [facility] albuterol 90 mcg/actuati on inhaler 0 8 00:00: 00 Yes [id number] 2{puff} Inhale 2 Puffs every 6 (six) hours as needed for Wheezing or Shortness of Breath. [facility] cetirizine (ZYRTEC) 10 mg tablet 0 8 00:00: 00 Yes [id number] 10mg Take 1 tablet by mouth in the morning. [facility] Fluticasone -Salmeterol (ADVAIR DISKUS) 100-50 mcg/dose inhalation disk 0 09-11 00:00: 00 Yes [id number] 1{puff} Inhale 1 Puff every 12 (twelve) hours. [facility] albuterol 90 mcg/actuati on inhaler 09-11 00:00: 00 Yes [id number] 2{puff} Inhale 2 Puffs every 6 (six) hours as needed for Wheezing or Shortness of Breath. [facility] cetirizine (ZYRTEC) 10 mg tablet 09-11 00:00: 00 Yes [id number] 10mg Take 1 tablet by mouth in the morning. [facility] Fluticasone -Salmeterol (ADVAIR DISKUS) 100-50 mcg/dose inhalation disk 09-11 00:00: 00 Yes [id number] 1{puff} Inhale 1 Puff every 12 (twelve) hours. [facility] albuterol 90 mcg/actuati on inhaler 09-11 00:00: 00 Yes [id number] 2{puff} Inhale 2 Puffs every 6 (six) hours as needed for Wheezing or Shortness of Breath. [facility] cetirizine (ZYRTEC) 10 mg tablet 09-11 00:00: 00 Yes [id number] 10mg Take 1 tablet by mouth in the morning. [facility] Fluticasone -Salmeterol (ADVAIR DISKUS) 100-50 mcg/dose inhalation disk 0 09-11 00:00: 00 Yes [id number] 1{puff} Inhale 1 Puff every 12 (twelve) hours. [facility] albuterol 90 mcg/actuati on inhaler 0 09-11 00:00: 00 Yes [id number] 2{puff} Inhale 2 Puffs every 6 (six) hours as needed for Wheezing or Shortness of Breath. [facility] cetirizine (ZYRTEC) 10 mg tablet 09-11 00:00: 00 Yes [id number] 10mg Take 1 tablet by mouth in the morning. [facility] Fluticasone -Salmeterol (ADVAIR DISKUS) 100-50 mcg/dose inhalation disk 0 8- 00:00: 00 Yes [id number] 1{puff} Inhale 1 Puff every 12 (twelve) hours. [facility] albuterol 90 mcg/actuati on inhaler 09-11 00:00: 00 Yes [id number] 2{puff} Inhale 2 Puffs every 6 (six) hours as needed for Wheezing or Shortness of Breath. [facility] cetirizine (ZYRTEC) 10 mg tablet 09-11 00:00: 00 Yes [id number] 10mg Take 1 tablet by mouth in the morning. [facility] Fluticasone -Salmeterol (ADVAIR DISKUS) 100-50 mcg/dose inhalation disk 09-11 00:00: 00 Yes [id number] 1{puff} Inhale 1 Puff every 12 (twelve) hours. [facility] albuterol 90 mcg/actuati on inhaler 09-11 00:00: 00 Yes [id number] 2{puff} Inhale 2 Puffs every 6 (six) hours as needed for Wheezing or Shortness of Breath. [facility] cetirizine (ZYRTEC) 10 mg tablet 09-11 00:00: 00 Yes [id number] 10mg Take 1 tablet by mouth in the morning. [facility] Fluticasone -Salmeterol (ADVAIR DISKUS) 100-50 mcg/dose inhalation disk 0 8- 00:00: 00 Yes [id number] 1{puff} Inhale 1 Puff every 12 (twelve) hours. [facility] albuterol 90 mcg/actuati on inhaler 0 8 00:00: 00 Yes [id number] 2{puff} Inhale 2 Puffs every 6 (six) hours as needed for Wheezing or Shortness of Breath. [facility] cetirizine (ZYRTEC) 10 mg tablet 09-11 00:00: 00 Yes [id number] 10mg Take 1 tablet by mouth in the morning. [facility] Fluticasone -Salmeterol (ADVAIR DISKUS) 100-50 mcg/dose inhalation disk 09-11 00:00: 00 Yes [id number] 1{puff} Inhale 1 Puff every 12 (twelve) hours. [facility] ondansetron (ZOFRAN (PF)) injection 4 mg 09-04 18:45: 00 09-04 18:49 :00 No 4mg 4 mg, Slow IV Push, ONCE, 1 dose, On Sat09/04/22 at 1345, WILY [facility] NaCl 0.9% (NS) bolus infusion 500 mL 09-04 18:30: 00 09-04 20:07 :00 No 500mL at 999 mL/hr, 500 mL, IV Infusion, ONCE, 1 dose, On Sat09/04/22 at 1330, STAT [facility] ondansetron 4 mg disintegrat ing tablet 09-04 00:00: 00 Yes [id number] 4mg Take 1 tablet by mouth every 8 (eight) hours as needed for Nausea and Vomiting (N/V). [facility] ondansetron 4 mg disintegrat ing tablet 09-04 00:00: 00 Yes [id number] 4mg Take 1 tablet by mouth every 8 (eight) hours as needed for Nausea and Vomiting (N/V). [facility] ondansetron 4 mg disintegrat ing tablet 09-04 00:00: 00 Yes [id number] 4mg Take 1 tablet by mouth every 8 (eight) hours as needed for Nausea and Vomiting (N/V). [facility] ondansetron 4 mg disintegrat ing tablet 09-04 00:00: 00 Yes [id number] 4mg Take 1 tablet by mouth every 8 (eight) hours as needed for Nausea and Vomiting (N/V). [facility] ondansetron 4 mg disintegrat ing tablet 09-04 00:00: 00 Yes [id number] 4mg Take 1 tablet by mouth every 8 (eight) hours as needed for Nausea and Vomiting (N/V). [facility] ondansetron 4 mg disintegrat ing tablet 09-04 00:00: 00 Yes [id number] 4mg Take 1 tablet by mouth every 8 (eight) hours as needed for Nausea and Vomiting (N/V). [facility] ondansetron 4 mg disintegrat ing tablet 09-04 00:00: 00 Yes [id number] 4mg Take 1 tablet by mouth every 8 (eight) hours as needed for Nausea and Vomiting (N/V). [facility] ondansetron 4 mg disintegrat ing tablet 09-04 00:00: 00 Yes [id number] 4mg Take 1 tablet by mouth every 8 (eight) hours as needed for Nausea and Vomiting (N/V). [facility] ondansetron 4 mg disintegrat ing tablet 09-04 00:00: 00 Yes [id number] 4mg Take 1 tablet by mouth every 8 (eight) hours as needed for Nausea and Vomiting (N/V). [facility] ondansetron 4 mg disintegrat ing tablet 09-04 00:00: 00 Yes [id number] 4mg Take 1 tablet by mouth every 8 (eight) hours as needed for Nausea and Vomiting (N/V). [facility] ondansetron 4 mg disintegrat ing tablet 09-04 00:00: 00 Yes [id number] 4mg Take 1 tablet by mouth every 8 (eight) hours as needed for Nausea and Vomiting (N/V). [facility] ondansetron 4 mg disintegrat ing tablet 0 09-04 00:00: 00 Yes [id number] 4mg Take 1 tablet by mouth every 8 (eight) hours as needed for Nausea and Vomiting (N/V). [facility] ondansetron 4 mg disintegrat ing tablet 09-04 00:00: 00 Yes [id number] 4mg Take 1 tablet by mouth every 8 (eight) hours as needed for Nausea and Vomiting (N/V). [facility] ondansetron 4 mg disintegrat ing tablet 0 25 00:00: 00 Yes [id number] 4mg Take 1 tablet by mouth every 8 (eight) hours as needed for Nausea and Vomiting (N/V). [facility] ondansetron 4 mg disintegrat ing tablet 2022-0 25 00:00: 00 Yes [id number] 4mg Take 1 tablet by mouth every 8 (eight) hours as needed for Nausea and Vomiting (N/V). [facility] ondansetron 4 mg disintegrat ing tablet 0 09-04 00:00: 00 Yes [id number] 4mg Take 1 tablet by mouth every 8 (eight) hours as needed for Nausea and Vomiting (N/V). [facility] ondansetron 4 mg disintegrat ing tablet 0 09-04 00:00: 00 Yes [id number] 4mg Take 1 tablet by mouth every 8 (eight) hours as needed for Nausea and Vomiting (N/V). [facility] amoxicillin 875 mg tablet 3-0 -14 00:00: 00 Yes TAKE 1 TABLET BY MOUTH EVERY 12 HOURS FOR 10 DAYS [facility] amoxicillin 875 mg tablet 3-0 7-14 00:00: 00 Yes TAKE 1 TABLET BY MOUTH EVERY 12 HOURS FOR 10 DAYS [facility] amoxicillin 875 mg tablet 3-0 7-14 00:00: 00 Yes TAKE 1 TABLET BY MOUTH EVERY 12 HOURS FOR 10 DAYS [facility] amoxicillin 875 mg tablet 3-0 7-14 00:00: 00 Yes TAKE 1 TABLET BY MOUTH EVERY 12 HOURS FOR 10 DAYS [facility] amoxicillin 875 mg tablet 3-0 7-14 00:00: 00 Yes TAKE 1 TABLET BY MOUTH EVERY 12 HOURS FOR 10 DAYS [facility] amoxicillin 875 mg tablet 3-0 7-14 00:00: 00 Yes TAKE 1 TABLET BY MOUTH EVERY 12 HOURS FOR 10 DAYS [facility] amoxicillin 875 mg tablet 3-0 7-14 00:00: 00 Yes TAKE 1 TABLET BY MOUTH EVERY 12 HOURS FOR 10 DAYS [facility] amoxicillin 875 mg tablet 2023-0 7-14 00:00: 00 Yes TAKE 1 TABLET BY MOUTH EVERY 12 HOURS FOR 10 DAYS [facility] amoxicillin 875 mg tablet 2022-0 14 00:00: 00 Yes TAKE 1 TABLET BY MOUTH EVERY 12 HOURS FOR 10 DAYS [facility] amoxicillin 875 mg tablet 2022-0 14 00:00: 00 Yes TAKE 1 TABLET BY MOUTH EVERY 12 HOURS FOR 10 DAYS [facility] amoxicillin 875 mg tablet 2022-0 -14 00:00: 00 Yes TAKE 1 TABLET BY MOUTH EVERY 12 HOURS FOR 10 DAYS [facility] amoxicillin 875 mg tablet 2022-0 14 00:00: 00 Yes TAKE 1 TABLET BY MOUTH EVERY 12 HOURS [facility]0 14 00:00: 00 Yes TAKE 1 TABLET BY MOUTH EVERY 12 HOURS FOR 10 DAYS [facility] 2022-0 14 00:00: 00 Yes TAKE 1 TABLET BY MOUTH EVERY 12 HOURS FOR 10 DAYS [facility] 2022-0 14 00:00: 00 Yes TAKE 1 TABLET BY MOUTH EVERY 12 HOURS FOR 10 DAYS [facility] 0 14 00:00: 00 Yes TAKE 1 TABLET BY MOUTH EVERY 12 HOURS FOR 10 DAYS [facility] dexAMETHaso ne (DECADRON) tablet 12 mg 08-19 20:30: 00 08-19 19:51 :00 No [id number] 12mg [facility] dexAMETHaso ne (DECADRON) tablet 12 mg 08-19 20:30: 00 08-19 19:51 :00 No [id number] 12mg 12 mg, Oral, ONCE, 1 dose, On 08/19/22 at 1530, Routine [facility] dexAMETHaso ne (DECADRON) tablet 12 mg 2022-0 08-19 20:30: 00 08-19 19:51 :00 No [id number] 12mg [facility] (DECADRON) tablet 12 mg 08-19 20:30: 00 08-19 19:51 :00 No [id number] 12mg 12 mg, Oral, ONCE, 1 dose, On Sat08/19/22 at 1530, Routine [facility] dexAMETHaso ne (DECADRON) tablet 12 mg 08-19 20:30: 00 08-19 19:51 :00 No [id number] 12mg [facility] dexAMETHaso ne (DECADRON) tablet 12 mg 08-19 20:30: 00 08-19 19:51 :00 No [id number] 12mg 12 mg, Oral, ONCE, 1 dose, On 08/19/22 at 1530, Routine [facility] dexAMETHaso ne (DECADRON) tablet 12 mg 08-19 20:30: 00 08-19 19:51 :00 No [id number] 12mg [facility] dexAMETHaso ne (DECADRON) tablet 12 mg 08-19 20:30: 00 08-19 19:51 :00 No [id number] 12mg 12 mg, Oral, ONCE, 1 dose, On 08/19/22 at 1530, Routine [facility] dexAMETHaso ne (DECADRON) tablet 12 mg 08-19 20:30: 00 08-19 19:51 :00 No [id number] 12mg [facility] dexAMETHaso ne (DECADRON) tablet 12 mg 08-19 20:30: 00 08-19 19:51 :00 No [id number] 12mg 12 mg, Oral, ONCE, 1 dose, On 08/19/22 at 1530, Routine [facility] codeine-gua ifenesin 10-100 mg/5 mL oral solution 08-19 00:00: 00 08-27 04:59 :00 No [id number] 10mL Take 10 mL by mouth every 8 (eight) hours as needed for Cough for up to 7 days. Indication s: acute pain [facility] codeine-gua ifenesin 10-100 mg/5 mL oral solution 08-19 00:00: 00 08-27 04:59 :00 No [id number] 10mL Take 10 mL by mouth every 8 (eight) hours as needed for Cough for up to 7 days. Indication s: acute pain [facility] codeine-gua ifenesin 10-100 mg/5 mL oral solution 08-19 00:00: 00 08-27 04:59 :00 No [id number] 10mL Take 10 mL by mouth every 8 (eight) hours as needed for Cough for up to 7 days. Indication s: acute pain [facility] codeine-gua ifenesin 10-100 mg/5 mL oral solution 08-19 00:00: 00 08-27 04:59 :00 No [id number] 10mL Take 10 mL by mouth every 8 (eight) hours as needed for Cough for up to 7 days. Indication s: acute [facility] codeine-gua ifenesin 10-100 mg/5 mL oral solution 08-19 00:00: 00 08-27 04:59 :00 No [id number] 10mL Take 10 mL by mouth every 8 (eight) hours as needed for Cough for up to 7 days. Indication s: acute pain [facility] dexamethaso ne (DECADRON) injection 10 mg 07-20 17:15: 00 07-20 16:20 :00 No [id number] 10mg [facility]o [facility] (DECADRON[facility] injection 10 mg 07-20 17:15: 00 07-20 16:20 :00 No [id number] 10mg 10 mg, Intramuscu lar, ONCE, 1 dose, On Sat07/20/22 at 1215, Routine [facility] meperidine HCl/prometh HCl (MEPERIDINE -PROMETHAZI NE ORAL) 07-20 00:00: 00 09-11 00:00 :00 No TAKE 5 ML BY MOUTH 4 TIMES DAILY FOR 10 DAYS [facility]prometh HCl (MEPERIDINE -PROMETHAZI NE ORAL) 07-20 00:00: 09-11 00:00 :00 No TAKE 5 ML BY MOUTH 4 TIMES DAILY FOR 10 DAYS [facility] promethazin e-dextromet horphan 6.25-15 mg/5 mL syrup 07-20 00:00: 07-31 04:59 :00 No [id number] 5mL Take 5 mL by mouth 4 (four) times daily for 10 days. [facility] amoxicillin -clavulanat e (AUGMENTIN) 875-125 mg per tablet 07-20 00:00: 00 07-31 04:59 :00 No [id number] 1{tbl} Take 1 tablet by mouth in the morning and 1 tablet in the evening. Do all this for 10 days. [facility] promethazin e-dextromet horphan 6.25-15 mg/5 mL syrup 07-20 00:00: 07-31 04:59 :00 No [id number] 5mL Take 5 mL by mouth 4 (four) times daily for 10 days. [facility] amoxicillin -clavulanat e (AUGMENTIN) 875-125 mg per tablet 07-20 00:00: 00 07-31 04:59 :00 No [id number] 1{tbl} Take 1 tablet by mouth in the morning and 1 tablet in the evening. Do all this for 10 days. [facility] azithromyci n 500 mg tablet 07-15 00:00: 00 Yes TAKE 1 TABLET BY MOUTH ONCE DAILY FOR 5 DAYS [facility] cetirizine 10 mg tablet 07-15 00:00: 00 Yes TAKE 1 TABLET BY MOUTH ONCE DAILY NEEDED FOR ALLERGY CONTROL [facility] famotidine 20 mg tablet 07-15 00:00: 00 Yes 20mg Take 1 tablet by mouth in the morning. [facility] predniSONE 20 mg tablet 07-15 00:00: 00 Yes TAKE 2 TABLETS BY MOUTH ONCE DAILY FOR 5 DAYS [facility] azithromyci n 500 mg tablet 2022-0 07-15 00:00: 00 Yes TAKE 1 TABLET BY MOUTH ONCE DAILY FOR 5 DAYS [facility] cetirizine 10 mg tablet 0 07-15 00:00: 00 Yes TAKE 1 TABLET BY MOUTH ONCE DAILY NEEDED FOR ALLERGY CONTROL [facility] famotidine 20 mg tablet 0 07-15 00:00: 00 Yes 20mg Take 1 tablet by mouth in the morning. [facility] predniSONE 20 mg tablet 2022-0 07-15 00:00: 00 Yes TAKE 2 TABLETS BY MOUTH ONCE DAILY FOR 5 DAYS [facility] azithromyci n 500 mg tablet 0 07-15 00:00: 00 Yes TAKE 1 TABLET BY MOUTH ONCE DAILY FOR 5 DAYS [facility] cetirizine 10 mg tablet 2022-0 07-15 00:00: 00 Yes TAKE 1 TABLET BY MOUTH ONCE DAILY NEEDED FOR ALLERGY CONTROL [facility] famotidine 20 mg tablet 0 07-15 00:00: 00 Yes 20mg Take 1 tablet by mouth in the morning. [facility] predniSONE 20 mg tablet 0 07-15 00:00: 00 Yes TAKE 2 TABLETS BY MOUTH ONCE DAILY FOR 5 DAYS [facility] azithromyci n 500 mg tablet 0 07-15 00:00: 00 Yes TAKE 1 TABLET BY MOUTH ONCE DAILY FOR 5 DAYS [facility] cetirizine 10 mg tablet 2022-0 07-15 00:00: 00 Yes TAKE 1 TABLET BY MOUTH ONCE DAILY NEEDED FOR ALLERGY CONTROL [facility] famotidine 20 mg tablet 2022-0 07-15 00:00: 00 Yes 20mg Take 1 tablet by mouth in the morning. [facility] predniSONE 20 mg tablet 2022-0 07-15 00:00: 00 Yes TAKE 2 TABLETS BY MOUTH ONCE DAILY FOR 5 DAYS [facility] azithromyci n 500 mg tablet 2022-0 07-15 00:00: 00 Yes TAKE 1 TABLET BY MOUTH ONCE DAILY FOR 5 DAYS [facility] cetirizine 10 mg tablet 2022-0 07-15 00:00: 00 Yes TAKE 1 TABLET BY MOUTH ONCE DAILY NEEDED FOR ALLERGY CONTROL [facility] famotidine 20 mg tablet 2022-0 07-15 00:00: 00 Yes 20mg Take 1 tablet by mouth in the morning. [facility] predniSONE 20 mg tablet 2022-0 07-15 00:00: 00 Yes TAKE 2 TABLETS BY MOUTH ONCE DAILY FOR 5 DAYS [facility] azithromyci n 500 mg tablet 0 07-15 00:00: 00 Yes TAKE 1 TABLET BY MOUTH ONCE DAILY FOR 5 DAYS [facility] cetirizine 10 mg tablet 2022-0 07-15 00:00: 00 Yes TAKE 1 TABLET BY MOUTH ONCE DAILY NEEDED FOR ALLERGY CONTROL [facility] famotidine 20 mg tablet 2022-0 07-15 00:00: 00 Yes 20mg Take 1 tablet by mouth in the morning. [facility] predniSONE 20 mg tablet 2022-0 07-15 00:00: 00 Yes TAKE 2 TABLETS BY MOUTH ONCE DAILY FOR 5 DAYS [facility] azithromyci n 500 mg tablet 2022-0 07-15 00:00: 00 Yes TAKE 1 TABLET BY MOUTH ONCE DAILY FOR 5 DAYS [facility] cetirizine 10 mg tablet 0 07-15 00:00: 00 Yes TAKE 1 TABLET BY MOUTH ONCE DAILY NEEDED FOR ALLERGY CONTROL [facility] famotidine 20 mg tablet 2022-0 07-15 00:00: 00 Yes 20mg Take 1 tablet by mouth in the morning. [facility] predniSONE 20 mg tablet 2022-0 07-15 00:00: 00 Yes TAKE 2 TABLETS BY MOUTH ONCE DAILY FOR 5 DAYS [facility] azithromyci n 500 mg tablet 0 07-15 00:00: 00 Yes TAKE 1 TABLET BY MOUTH ONCE DAILY FOR 5 DAYS [facility] cetirizine 10 mg tablet 2022-0 07-15 00:00: 00 Yes TAKE 1 TABLET BY MOUTH ONCE DAILY NEEDED FOR ALLERGY CONTROL [facility] famotidine 20 mg tablet 2022-0 07-15 00:00: 00 Yes 20mg Take 1 tablet by mouth in the morning. [facility] predniSONE 20 mg tablet 2022-0 07-15 00:00: 00 Yes TAKE 2 TABLETS BY MOUTH ONCE DAILY FOR 5 DAYS [facility] azithromyci n 500 mg tablet 2022-0 07-15 00:00: 00 Yes TAKE 1 TABLET BY MOUTH ONCE DAILY FOR 5 DAYS [facility] cetirizine 10 mg tablet 2022-0 07-15 00:00: 00 Yes TAKE 1 TABLET BY MOUTH ONCE DAILY NEEDED FOR ALLERGY CONTROL [facility] famotidine 20 mg tablet 2022-0 07-15 00:00: 00 Yes 20mg Take 1 tablet by mouth in the morning. [facility] predniSONE 20 mg tablet 2022-0 07-15 00:00: 00 Yes TAKE 2 TABLETS BY MOUTH ONCE DAILY FOR 5 DAYS [facility] azithromyci n 500 mg tablet 2022-0 07-15 00:00: 00 Yes TAKE 1 TABLET BY MOUTH ONCE DAILY FOR 5 DAYS [facility] cetirizine 10 mg tablet 2022-0 07-15 00:00: 00 Yes TAKE 1 TABLET BY MOUTH ONCE DAILY NEEDED FOR ALLERGY CONTROL [facility] famotidine 20 mg tablet 0 07-15 00:00: 00 Yes 20mg Take 1 tablet by mouth in the morning. [facility] predniSONE 20 mg tablet 2022-0 07-15 00:00: 00 Yes TAKE 2 TABLETS BY MOUTH ONCE DAILY FOR 5 DAYS [facility] azithromyci n 500 mg tablet 0 07-15 00:00: 00 Yes TAKE 1 TABLET BY MOUTH ONCE DAILY FOR 5 DAYS [facility] cetirizine 10 mg tablet 2022-0 07-15 00:00: 00 Yes TAKE 1 TABLET BY MOUTH ONCE DAILY NEEDED FOR ALLERGY CONTROL [facility] famotidine 20 mg tablet 2022-0 07-15 00:00: 00 Yes 20mg Take 1 tablet by mouth in the morning. [facility] predniSONE 20 mg tablet 2022-0 07-15 00:00: 00 Yes TAKE 2 TABLETS BY MOUTH ONCE DAILY FOR 5 DAYS [facility] azithromyci n 500 mg tablet 2022-0 07-15 00:00: 00 Yes TAKE 1 TABLET BY MOUTH ONCE DAILY FOR 5 DAYS [facility] cetirizine 10 mg tablet 2022-0 07-15 00:00: 00 Yes TAKE 1 TABLET BY MOUTH ONCE DAILY NEEDED FOR ALLERGY CONTROL [facility] famotidine 20 mg tablet 2022-0 07-15 00:00: 00 Yes 20mg Take 1 tablet by mouth in the morning. [facility] predniSONE 20 mg tablet 2022-0 07-15 00:00: 00 Yes TAKE 2 TABLETS BY MOUTH ONCE DAILY FOR 5 DAYS [facility] azithromyci n 500 mg tablet 2022-0 07-15 00:00: 00 Yes TAKE 1 TABLET BY MOUTH ONCE DAILY FOR 5 DAYS [facility] cetirizine 10 mg tablet 2022-0 07-15 00:00: 00 Yes TAKE 1 TABLET BY MOUTH ONCE DAILY NEEDED FOR ALLERGY CONTROL [facility] famotidine 20 mg tablet 2022-0 07-15 00:00: 00 Yes 20mg Take 1 tablet by mouth in the morning. [facility] predniSONE 20 mg tablet 2022-0 07-15 00:00: 00 Yes TAKE 2 TABLETS BY MOUTH ONCE DAILY FOR 5 DAYS [facility] azithromyci n 500 mg tablet 2022-0 07-15 00:00: 00 Yes TAKE 1 TABLET BY MOUTH ONCE DAILY FOR 5 DAYS [facility] cetirizine 10 mg tablet 2022-0 07-15 00:00: 00 Yes TAKE 1 TABLET BY MOUTH ONCE DAILY NEEDED FOR ALLERGY CONTROL [facility] famotidine 20 mg tablet 2022-0 07-15 00:00: 00 Yes 20mg Take 1 tablet by mouth in the morning. [facility] predniSONE 20 mg tablet 2022-0 07-15 00:00: 00 Yes TAKE 2 TABLETS BY MOUTH ONCE DAILY FOR 5 DAYS [facility] azithromyci n 500 mg tablet 2022-0 07-15 00:00: 00 Yes TAKE 1 TABLET BY MOUTH ONCE DAILY FOR 5 DAYS [facility] cetirizine 10 mg tablet 07-15 00:00: 00 Yes TAKE 1 TABLET BY MOUTH ONCE DAILY NEEDED FOR ALLERGY CONTROL [facility] famotidine 20 mg tablet 07-15 00:00: 00 Yes 20mg Take 1 tablet by mouth in the morning. [facility] predniSONE 20 mg tablet 07-15 00:00: 00 Yes TAKE 2 TABLETS BY MOUTH ONCE DAILY FOR 5 DAYS [facility] azithromyci n 500 mg tablet 07-15 00:00: 00 Yes TAKE 1 TABLET BY MOUTH ONCE DAILY FOR 5 DAYS [facility] cetirizine 10 mg tablet 07-15 00:00: 00 Yes TAKE 1 TABLET BY MOUTH ONCE DAILY NEEDED FOR ALLERGY CONTROL [facility] famotidine 20 mg tablet 07-15 00:00: 00 Yes 20mg Take 1 tablet by mouth in the morning. [facility] predniSONE 20 mg tablet 07-15 00:00: 00 Yes TAKE 2 TABLETS BY MOUTH ONCE DAILY FOR 5 DAYS [facility] bromphenira mine-pseudo ephedrine-D M (BROMFED DM) 2-30-10 mg/5 mL syrup 07-11 00:00: 00 Yes [id number] 10mL Take 10 mL by mouth 4 (four) times daily as needed for Cold symptoms. [facility] albuterol 90 mcg/actuati on inhaler 07-11 00:00: 00 Yes [id number] 2{puff} Inhale 2 Puffs every 6 (six) hours as needed for Shortness of Breath or Wheezing. [facility] ibuprofen 600 mg tablet 07-11 00:00: 00 Yes [id number] 600mg Take 1 tablet by mouth every 6 (six) hours as needed for Pain (scale 1-3) or Pain (scale 4-6). [facility] bromphenira mine-pseudo ephedrine-D M (BROMFED DM) 2-30-10 mg/5 mL syrup 07-11 00:00: 00 Yes [id number] 10mL Take 10 mL by mouth 4 (four) times daily as needed for Cold symptoms. [facility] albuterol 90 mcg/actuati on inhaler 07-11 00:00: 00 Yes [id number] 2{puff} Inhale 2 Puffs every 6 (six) hours as needed for Shortness of Breath or Wheezing. [facility] ibuprofen 600 mg tablet 07-11 00:00: 00 Yes [id number] 600mg Take 1 tablet by mouth every 6 (six) hours as needed for Pain (scale 1-3) or Pain (scale 4-6). [facility] bromphenira mine-pseudo ephedrine-D M (BROMFED DM) 2-30-10 mg/5 mL syrup 07-11 00:00: 00 Yes [id number] 10mL Take 10 mL by mouth 4 (four) times daily as needed for Cold symptoms. [facility] albuterol 90 mcg/actuati on inhaler 07-11 00:00: 00 Yes [id number] 2{puff} Inhale 2 Puffs every 6 (six) hours as needed for Shortness of Breath or Wheezing. [facility] ibuprofen 600 mg tablet 07-11 00:00: 00 Yes [id number] 600mg Take 1 tablet by mouth every 6 (six) hours as needed for Pain (scale 1-3) or Pain (scale 4-6). [facility] bromphenira mine-pseudo ephedrine-D M (BROMFED DM) 2-30-10 mg/5 mL syrup 07-11 00:00: 00 Yes [id number] 10mL Take 10 mL by mouth 4 (four) times daily as needed for Cold symptoms. [facility] albuterol 90 mcg/actuati on inhaler 07-11 00:00: 00 Yes [id number] 2{puff} Inhale 2 Puffs every 6 (six) hours as needed for Shortness of Breath or Wheezing. [facility] ibuprofen 600 mg tablet 07-11 00:00: 00 Yes [id number] 600mg Take 1 tablet by mouth every 6 (six) hours as needed for Pain (scale 1-3) or Pain (scale 4-6). [facility] bromphenira mine-pseudo ephedrine-D M (BROMFED DM) 2-30-10 mg/5 mL syrup 07-11 00:00: 00 Yes [id number] 10mL Take 10 mL by mouth 4 (four) times daily as needed for Cold symptoms. [facility] albuterol 90 mcg/actuati on inhaler 07-11 00:00: 00 Yes [id number] 2{puff} Inhale 2 Puffs every 6 (six) hours as needed for Shortness of Breath or Wheezing. [facility] ibuprofen 600 mg tablet 07-11 00:00: 00 Yes [id number] 600mg Take 1 tablet by mouth every 6 (six) hours as needed for Pain (scale 1-3) or Pain (scale 4-6). [facility] bromphenira mine-pseudo ephedrine-D M (BROMFED DM) 2-30-10 mg/5 mL syrup 07-11 00:00: 00 Yes [id number] 10mL Take 10 mL by mouth 4 (four) times daily as needed for Cold symptoms. [facility] albuterol 90 mcg/actuati on inhaler 07-11 00:00: 00 Yes [id number] 2{puff} Inhale 2 Puffs every 6 (six) hours as needed for Shortness of Breath or Wheezing. [facility] ibuprofen 600 mg tablet 07-11 00:00: 00 Yes [id number] 600mg Take 1 tablet by mouth every 6 (six) hours as needed for Pain (scale 1-3) or Pain (scale 4-6). [facility] bromphenira mine-pseudo ephedrine-D M (BROMFED DM) 2-30-10 mg/5 mL syrup 07-11 00:00: 00 Yes [id number] 10mL Take 10 mL by mouth 4 (four) times daily as needed for Cold symptoms. [facility] albuterol 90 mcg/actuati on inhaler 07-11 00:00: 00 Yes [id number] 2{puff} Inhale 2 Puffs every 6 (six) hours as needed for Shortness of Breath or Wheezing. [facility] ibuprofen 600 mg tablet 07-11 00:00: 00 Yes [id number] 600mg Take 1 tablet by mouth every 6 (six) hours as needed for Pain (scale 1-3) or Pain (scale 4-6). [facility] bromphenira mine-pseudo ephedrine-D M (BROMFED DM) 2-30-10 mg/5 mL syrup 07-11 00:00: 00 Yes [id number] 10mL Take 10 mL by mouth 4 (four) times daily as needed for Cold symptoms. [facility] albuterol 90 mcg/actuati on inhaler 07-11 00:00: 00 Yes [id number] 2{puff} Inhale 2 Puffs every 6 (six) hours as needed for Shortness of Breath or Wheezing. [facility] ibuprofen 600 mg tablet 07-11 00:00: 00 Yes [id number] 600mg Take 1 tablet by mouth every 6 (six) hours as needed for Pain (scale 1-3) or Pain (scale 4-6). [facility] bromphenira mine-pseudo ephedrine-D M (BROMFED DM) 2-30-10 mg/5 mL syrup 07-11 00:00: 00 Yes [id number] 10mL Take 10 mL by mouth 4 (four) times daily as needed for Cold symptoms. [facility] albuterol 90 mcg/actuati on inhaler 07-11 00:00: 00 Yes [id number] 2{puff} Inhale 2 Puffs every 6 (six) hours as needed for Shortness of Breath or Wheezing. [facility] ibuprofen 600 mg tablet 07-11 00:00: 00 Yes [id number] 600mg Take 1 tablet by mouth every 6 (six) hours as needed for Pain (scale 1-3) or Pain (scale 4-6). [facility] bromphenira mine-pseudo ephedrine-D M (BROMFED DM) 2-30-10 mg/5 mL syrup 07-11 00:00: 00 Yes [id number] 10mL Take 10 mL by mouth 4 (four) times daily as needed for Cold symptoms. [facility] albuterol 90 mcg/actuati on inhaler 07-11 00:00: 00 Yes [id number] 2{puff} Inhale 2 Puffs every 6 (six) hours as needed for Shortness of Breath or Wheezing. [facility] ibuprofen 600 mg tablet 07-11 00:00: 00 Yes [id number] 600mg Take 1 tablet by mouth every 6 (six) hours as needed for Pain (scale 1-3) or Pain (scale 4-6). [facility] bromphenira mine-pseudo ephedrine-D M (BROMFED DM) 2-30-10 mg/5 mL syrup 07-11 00:00: 00 Yes [id number] 10mL Take 10 mL by mouth 4 (four) times daily as needed for Cold symptoms. [facility] albuterol 90 mcg/actuati on inhaler 07-11 00:00: 00 Yes [id number] 2{puff} Inhale 2 Puffs every 6 (six) hours as needed for Shortness of Breath or Wheezing. [facility] ibuprofen 600 mg tablet 07-11 00:00: 00 Yes [id number] 600mg Take 1 tablet by mouth every 6 (six) hours as needed for Pain (scale 1-3) or Pain (scale 4-6). [facility] bromphenira mine-pseudo ephedrine-D M (BROMFED DM) 2-30-10 mg/5 mL syrup 07-11 00:00: 00 Yes [id number] 10mL Take 10 mL by mouth 4 (four) times daily as needed for Cold symptoms. [facility] albuterol 90 mcg/actuati on inhaler 07-11 00:00: 00 Yes [id number] 2{puff} Inhale 2 Puffs every 6 (six) hours as needed for Shortness of Breath or Wheezing. [facility] ibuprofen 600 mg tablet 07-11 00:00: 00 Yes [id number] 600mg Take 1 tablet by mouth every 6 (six) hours as needed for Pain (scale 1-3) or Pain (scale 4-6). [facility] bromphenira mine-pseudo ephedrine-D M (BROMFED DM) 2-30-10 mg/5 mL syrup 07-11 00:00: 00 Yes [id number] 10mL Take 10 mL by mouth 4 (four) times daily as needed for Cold symptoms. [facility] albuterol 90 mcg/actuati on inhaler 07-11 00:00: 00 Yes [id number] 2{puff} Inhale 2 Puffs every 6 (six) hours as needed for Shortness of Breath or Wheezing. [facility] ibuprofen 600 mg tablet 07-11 00:00: 00 Yes [id number] 600mg Take 1 tablet by mouth every 6 (six) hours as needed for Pain (scale 1-3) or Pain (scale 4-6). [facility] bromphenira mine-pseudo ephedrine-D M (BROMFED DM) 2-30-10 mg/5 mL syrup 07-11 00:00: 00 Yes [id number] 10mL Take 10 mL by mouth 4 (four) times daily as needed for Cold symptoms. [facility] albuterol 90 mcg/actuati on inhaler 07-11 00:00: 00 Yes [id number] 2{puff} Inhale 2 Puffs every 6 (six) hours as needed for Shortness of Breath or Wheezing. [facility] ibuprofen 600 mg tablet 07-11 00:00: 00 Yes [id number] 600mg Take 1 tablet by mouth every 6 (six) hours as needed for Pain (scale 1-3) or Pain (scale 4-6). [facility] bromphenira mine-pseudo ephedrine-D M (BROMFED DM) 2-30-10 mg/5 mL syrup 07-11 00:00: 00 Yes [id number] 10mL Take 10 mL by mouth 4 (four) times daily as needed for Cold symptoms. [facility] albuterol 90 mcg/actuati on inhaler 07-11 00:00: 00 Yes [id number] 2{puff} Inhale 2 Puffs every 6 (six) hours as needed for Shortness of Breath or Wheezing. [facility] ibuprofen 600 mg tablet 07-11 00:00: 00 Yes [id number] 600mg Take 1 tablet by mouth every 6 (six) hours as needed for Pain (scale 1-3) or Pain (scale 4-6). [facility] bromphenira mine-pseudo ephedrine-D M (BROMFED DM) 2-30-10 mg/5 mL syrup 07-11 00:00: 00 Yes [id number] 10mL Take 10 mL by mouth 4 (four) times daily as needed for Cold symptoms. [facility] albuterol 90 mcg/actuati on inhaler 07-11 00:00: 00 Yes [id number] 2{puff} Inhale 2 Puffs every 6 (six) hours as needed for Shortness of Breath or Wheezing. [facility] ibuprofen 600 mg tablet 07-11 00:00: 00 Yes [id number] 600mg Take 1 tablet by mouth every 6 (six) hours as needed for Pain (scale 1-3) or Pain (scale 4-6). [facility] bromphenira mine-pseudo ephedrine-D M (BROMFED DM) 2-30-10 mg/5 mL syrup 07-11 00:00: 00 Yes [id number] 10mL Take 10 mL by mouth 4 (four) times daily as needed for Cold symptoms. [facility] albuterol 90 mcg/actuati on inhaler 07-11 00:00: 00 Yes [id number] 2{puff} Inhale 2 Puffs every 6 (six) hours as needed for Shortness of Breath or Wheezing. [facility] ibuprofen 600 mg tablet 07-11 00:00: 00 Yes [id number] 600mg Take 1 tablet by mouth every 6 (six) hours as needed for Pain (scale 1-3) or Pain (scale 4-6). [facility] bromphenira mine-pseudo ephedrine-D M (BROMFED DM) 2-30-10 mg/5 mL syrup 07-11 00:00: 00 Yes [id number] 10mL Take 10 mL by mouth 4 (four) times daily as needed for Cold symptoms. [facility] albuterol 90 mcg/actuati on inhaler 07-11 00:00: 00 Yes [id number] 2{puff} Inhale 2 Puffs every 6 (six) hours as needed for Shortness of Breath or Wheezing. [facility] ibuprofen 600 mg tablet 07-11 00:00: 00 Yes [id number] 600mg Take 1 tablet by mouth every 6 (six) hours as needed for Pain (scale 1-3) or Pain (scale 4-6). [facility] bromphenira mine-pseudo ephedrine-D M (BROMFED DM) 2-30-10 mg/5 mL syrup 07-11 00:00: 00 Yes [id number] 10mL Take 10 mL by mouth 4 (four) times daily as needed for Cold symptoms. [facility] albuterol 90 mcg/actuati on inhaler 07-11 00:00: 00 Yes [id number] 2{puff} Inhale 2 Puffs every 6 (six) hours as needed for Shortness of Breath or Wheezing. [facility] ibuprofen 600 mg tablet 07-11 00:00: 00 Yes [id number] 600mg Take 1 tablet by mouth every 6 (six) hours as needed for Pain (scale 1-3) or Pain (scale 4-6). [facility] bromphenira mine-pseudo ephedrine-D M (BROMFED DM) 2-30-10 mg/5 mL syrup 07-11 00:00: 00 Yes [id number] 10mL Take 10 mL by mouth 4 (four) times daily as needed for Cold symptoms. [facility] albuterol 90 mcg/actuati on inhaler 07-11 00:00: 00 Yes [id number] 2{puff} Inhale 2 Puffs every 6 (six) hours as needed for Shortness of Breath or Wheezing. [facility] ibuprofen 600 mg tablet 07-11 00:00: 00 Yes [id number] 600mg Take 1 tablet by mouth every 6 (six) hours as needed for Pain (scale 1-3) or Pain (scale 4-6). [facility] bromphenira mine-pseudo ephedrine-D M (BROMFED DM) 2-30-10 mg/5 mL syrup 07-11 00:00: 00 Yes [id number] 10mL Take 10 mL by mouth 4 (four) times daily as needed for Cold symptoms. [facility] albuterol 90 mcg/actuati on inhaler 07-11 00:00: 00 Yes [id number] 2{puff} Inhale 2 Puffs every 6 (six) hours as needed for Shortness of Breath or Wheezing. [facility] ibuprofen 600 mg tablet 07-11 00:00: 00 Yes [id number] 600mg Take 1 tablet by mouth every 6 (six) hours as needed for Pain (scale 1-3) or Pain (scale 4-6). [facility] bromphenira mine-pseudo ephedrine-D M (BROMFED DM) 2-30-10 mg/5 mL syrup 07-11 00:00: 00 Yes [id number] 10mL Take 10 mL by mouth 4 (four) times daily as needed for Cold symptoms. [facility] albuterol 90 mcg/actuati on inhaler 07-11 00:00: 00 Yes [id number] 2{puff} Inhale 2 Puffs every 6 (six) hours as needed for Shortness of Breath or Wheezing. [facility] ibuprofen 600 mg tablet 07-11 00:00: 00 Yes [id number] 600mg Take 1 tablet by mouth every 6 (six) hours as needed for Pain (scale 1-3) or Pain (scale 4-6). [facility] bromphenira mine-pseudo ephedrine-D M (BROMFED DM) 2-30-10 mg/5 mL syrup 07-11 00:00: 00 Yes [id number] 10mL Take 10 mL by mouth 4 (four) times daily as needed for Cold symptoms. [facility] albuterol 90 mcg/actuati on inhaler 07-11 00:00: 00 Yes [id number] 2{puff} Inhale 2 Puffs every 6 (six) hours as needed for Shortness of Breath or Wheezing. [facility] ibuprofen 600 mg tablet 07-11 00:00: 00 Yes [id number] 600mg Take 1 tablet by mouth every 6 (six) hours as needed for Pain (scale 1-3) or Pain (scale 4-6). [facility] bromphenira mine-pseudo ephedrine-D M (BROMFED DM) 2-30-10 mg/5 mL syrup 07-11 00:00: 00 Yes [id number] 10mL Take 10 mL by mouth 4 (four) times daily as needed for Cold symptoms. [facility] albuterol 90 mcg/actuati on inhaler 07-11 00:00: 00 Yes [id number] 2{puff} Inhale 2 Puffs every 6 (six) hours as needed for Shortness of Breath or Wheezing. [facility] ibuprofen 600 mg tablet 07-11 00:00: 00 Yes [id number] 600mg Take 1 tablet by mouth every 6 (six) hours as needed for Pain (scale 1-3) or Pain (scale 4-6). [facility] bromphenira mine-pseudo ephedrine-D M (BROMFED DM) 2-30-10 mg/5 mL syrup 07-11 00:00: 00 Yes [id number] 10mL Take 10 mL by mouth 4 (four) times daily as needed for Cold symptoms. [facility] albuterol 90 mcg/actuati on inhaler 07-11 00:00: 00 Yes [id number] 2{puff} Inhale 2 Puffs every 6 (six) hours as needed for Shortness of Breath or Wheezing. [facility] ibuprofen 600 mg tablet 07-11 00:00: 00 Yes [id number] 600mg Take 1 tablet by mouth every 6 (six) hours as needed for Pain (scale 1-3) or Pain (scale 4-6). [facility] bromphenira mine-pseudo ephedrine-D M (BROMFED DM) 2-30-10 mg/5 mL syrup 07-11 00:00: 00 Yes [id number] 10mL Take 10 mL by mouth 4 (four) times daily as needed for Cold symptoms. [facility] albuterol 90 mcg/actuati on inhaler 07-11 00:00: 00 Yes [id number] 2{puff} Inhale 2 Puffs every 6 (six) hours as needed for Shortness of Breath or Wheezing. [facility] ibuprofen 600 mg tablet 07-11 00:00: 00 Yes [id number] 600mg Take 1 tablet by mouth every 6 (six) hours as needed for Pain (scale 1-3) or Pain (scale 4-6). [facility] bromphenira mine-pseudo ephedrine-D M (BROMFED DM) 2-30-10 mg/5 mL syrup 07-11 00:00: 00 Yes [id number] 10mL Take 10 mL by mouth 4 (four) times daily as needed for Cold symptoms. [facility] albuterol 90 mcg/actuati on inhaler 07-11 00:00: 00 Yes [id number] 2{puff} Inhale 2 Puffs every 6 (six) hours as needed for Shortness of Breath or Wheezing. [facility] ibuprofen 600 mg tablet 07-11 00:00: 00 Yes [id number] 600mg Take 1 tablet by mouth every 6 (six) hours as needed for Pain (scale 1-3) or Pain (scale 4-6). [facility] bromphenira mine-pseudo ephedrine-D M (BROMFED DM) 2-30-10 mg/5 mL syrup 07-11 00:00: 00 Yes [id number] 10mL Take 10 mL by mouth 4 (four) times daily as needed for Cold symptoms. [facility] albuterol 90 mcg/actuati on inhaler 07-11 00:00: 00 Yes [id number] 2{puff} Inhale 2 Puffs every 6 (six) hours as needed for Shortness of Breath or Wheezing. [facility] ibuprofen 600 mg tablet 07-11 00:00: 00 Yes [id number] 600mg Take 1 tablet by mouth every 6 (six) hours as needed for Pain (scale 1-3) or Pain (scale 4-6). [facility] clindamycin 300 mg capsule 4- 00:00: 00 06-23 04:59 :00 No [id number] 300mg Take 1 capsule by mouth 4 (four) times daily for 21 days. [facility] clindamycin 300 mg capsule 06-01 00:00: 00 06-23 04:59 :00 No [id number] 300mg Take 1 capsule by mouth 4 (four) times daily for 21 days. [facility] clindamycin 300 mg capsule 06-01 00:00: 00 06-23 04:59 :00 No [id number] 300mg Take 1 capsule by mouth 4 (four) times daily for 21 days. [facility] clindamycin 300 mg capsule 06-01 00:00: 00 06-23 04:59 :00 No [id number] 300mg Take 1 capsule by mouth 4 (four) times daily for 21 days. [facility] clindamycin 300 mg capsule 06-01 00:00: 00 06-23 04:59 :00 No [id number] 300mg Take 1 capsule by mouth 4 (four) times daily for 21 days. [facility] bromphenira mine-pseudo ephedrine-D M (BROMFED DM) 2-30-10 mg/5 mL syrup 3 00:00: 00 05-21 04:59 :00 No [id number] 5mL Take 5 mL by mouth 4 (four) times daily for 10 days. [facility] bromphenira mine-pseudo ephedrine-D M (BROMFED DM) 2-30-10 mg/5 mL syrup 3-30 00:00: 00 05-21 04:59 :00 No [id number] 5mL Take 5 mL by mouth 4 (four) times daily for 10 days. [facility] acetaminoph en-codeine 300-30 mg tablet 3 00:00: 00 Yes [id number] 1{tbl} Take 1-2 tablets by mouth every 6 (six) hours as needed for Pain (scale 4-6). Indication s: acute pain [facility] benzonatate 100 mg capsule 3-0 3 00:00: 00 Yes [id number] 100mg Take 1 capsule by mouth 3 (three) times daily as needed for Cough. [facility] acetaminoph en-codeine 300-30 mg tablet 3-0 3 00:00: 00 Yes [id number] 1{tbl} Take 1-2 tablets by mouth every 6 (six) hours as needed for Pain (scale 4-6). Indication s: acute pain [facility] benzonatate 100 mg capsule 3-0 05-03 00:00: 00 Yes [id number] 100mg Take 1 capsule by mouth 3 (three) times daily as needed for Cough. [facility] acetaminoph en-codeine 300-30 mg tablet 3-0 05-03 00:00: 00 Yes [id number] 1{tbl} Take 1-2 tablets by mouth every 6 (six) hours as needed for Pain (scale 4-6). Indication s: acute pain [facility] benzonatate 100 mg capsule 3-0 05-03 00:00: 00 Yes [id number] 100mg Take 1 capsule by mouth 3 (three) times daily as needed for Cough. [facility] acetaminoph en-codeine 300-30 mg tablet 3-0 3 00:00: 00 Yes [id number] 1{tbl} Take 1-2 tablets by mouth every 6 (six) hours as needed for Pain (scale 4-6). Indication s: acute pain [facility] benzonatate 100 mg capsule 3-0 3 00:00: 00 Yes [id number] 100mg Take 1 capsule by mouth 3 (three) times daily as needed for Cough. [facility] acetaminoph en-codeine 300-30 mg tablet 3-0 3 00:00: 00 Yes [id number] 1{tbl} Take 1-2 tablets by mouth every 6 (six) hours as needed for Pain (scale 4-6). Indication s: acute pain [facility] benzonatate 100 mg capsule 2023-0 323 00:00: 00 Yes [id number] 100mg Take 1 capsule by mouth 3 (three) times daily as needed for Cough. [facility] acetaminoph en-codeine 300-30 mg tablet 3-0 3 00:00: 00 Yes [id number] 1{tbl} Take 1-2 tablets by mouth every 6 (six) hours as needed for Pain (scale 4-6). Indication s: acute pain [facility] benzonatate 100 mg capsule 3-0 3 00:00: 00 Yes [id number] 100mg Take 1 capsule by mouth 3 (three) times daily as needed for Cough. [facility] acetaminoph en-codeine 300-30 mg tablet 3-0 3 00:00: 00 Yes [id number] 1{tbl} Take 1-2 tablets by mouth every 6 (six) hours as needed for Pain (scale 4-6). Indication s: acute pain [facility] benzonatate 100 mg capsule 3-0 3 00:00: 00 Yes [id number] 100mg Take 1 capsule by mouth 3 (three) times daily as needed for Cough. [facility] acetaminoph en-codeine 300-30 mg tablet 3-0 3 00:00: 00 Yes [id number] 1{tbl} Take 1-2 tablets by mouth every 6 (six) hours as needed for Pain (scale 4-6). Indication s: acute pain [facility] benzonatate 100 mg capsule 3-0 3 00:00: 00 Yes [id number] 100mg Take 1 capsule by mouth 3 (three) times daily as needed for Cough. [facility] acetaminoph en-codeine 300-30 mg tablet 3-0 3 00:00: 00 Yes [id number] 1{tbl} Take 1-2 tablets by mouth every 6 (six) hours as needed for Pain (scale 4-6). Indication s: acute pain [facility] benzonatate 100 mg capsule 2023-0 3-23 00:00: 00 Yes [id number] 100mg Take 1 capsule by mouth 3 (three) times daily as needed for Cough. [facility] acetaminoph en-codeine 300-30 mg tablet 2023-0 3-23 00:00: 00 Yes [id number] 1{tbl} Take 1-2 tablets by mouth every 6 (six) hours as needed for Pain (scale 4-6). Indication s: acute pain [facility] benzonatate 100 mg capsule 2023-0 3-23 00:00: 00 Yes [id number] 100mg Take 1 capsule by mouth 3 (three) times daily as needed for Cough. [facility] acetaminoph en-codeine 300-30 mg tablet 2023-0 3-23 00:00: 00 Yes [id number] 1{tbl} Take 1-2 tablets by mouth every 6 (six) hours as needed for Pain (scale 4-6). Indication s: acute pain [facility] benzonatate 100 mg capsule 2023-0 3-23 00:00: 00 Yes [id number] 100mg Take 1 capsule by mouth 3 (three) times daily as needed for Cough. [facility] acetaminoph en-codeine 300-30 mg tablet 2023-0 3 00:00: 00 Yes [id number] 1{tbl} Take 1-2 tablets by mouth every 6 (six) hours as needed for Pain (scale 4-6). Indication s: acute pain [facility] benzonatate 100 mg capsule 2023-0 323 00:00: 00 Yes [id number] 100mg Take 1 capsule by mouth 3 (three) times daily as needed for Cough. [facility] acetaminoph en-codeine 300-30 mg tablet 2023-0 3-23 00:00: 00 Yes [id number] 1{tbl} Take 1-2 tablets by mouth every 6 (six) hours as needed for Pain (scale 4-6). Indication s: acute pain [facility] benzonatate 100 mg capsule 2023-0 3-23 00:00: 00 Yes [id number] 100mg Take 1 capsule by mouth 3 (three) times daily as needed for Cough. [facility] acetaminoph en-codeine 300-30 mg tablet 2023-0 3-23 00:00: 00 Yes [id number] 1{tbl} Take 1-2 tablets by mouth every 6 (six) hours as needed for Pain (scale 4-6). Indication s: acute pain [facility] benzonatate 100 mg capsule 2023-0 3 00:00: 00 Yes [id number] 100mg Take 1 capsule by mouth 3 (three) times daily as needed for Cough. [facility] acetaminoph en-codeine 300-30 mg tablet 3-0 3 00:00: 00 Yes [id number] 1{tbl} Take 1-2 tablets by mouth every 6 (six) hours as needed for Pain (scale 4-6). Indication s: acute pain [facility] benzonatate 100 mg capsule 3-0 3 00:00: 00 Yes [id number] 100mg Take 1 capsule by mouth 3 (three) times daily as needed for Cough. [facility] acetaminoph en-codeine 300-30 mg tablet 3-0 3 00:00: 00 Yes [id number] 1{tbl} Take 1-2 tablets by mouth every 6 (six) hours as needed for Pain (scale 4-6). Indication s: acute pain [facility] benzonatate 100 mg capsule 3-0 3 00:00: 00 Yes [id number] 100mg Take 1 capsule by mouth 3 (three) times daily as needed for Cough. [facility] acetaminoph en-codeine 300-30 mg tablet 3-0 3 00:00: 00 Yes [id number] 1{tbl} Take 1-2 tablets by mouth every 6 (six) hours as needed for Pain (scale 4-6). Indication s: acute pain [facility] benzonatate 100 mg capsule 2023-0 3 00:00: 00 Yes [id number] 100mg Take 1 capsule by mouth 3 (three) times daily as needed for Cough. [facility] acetaminoph en-codeine 300-30 mg tablet 2023-0 3 00:00: 00 Yes [id number] 1{tbl} Take 1-2 tablets by mouth every 6 (six) hours as needed for Pain (scale 4-6). Indication s: acute pain [facility] benzonatate 100 mg capsule 3-0 3 00:00: 00 Yes [id number] 100mg Take 1 capsule by mouth 3 (three) times daily as needed for Cough. [facility] acetaminoph en-codeine 300-30 mg tablet 3-0 3 00:00: 00 Yes [id number] 1{tbl} Take 1-2 tablets by mouth every 6 (six) hours as needed for Pain (scale 4-6). Indication s: acute pain [facility] benzonatate 100 mg capsule 3-0 05-03 00:00: 00 Yes [id number] 100mg Take 1 capsule by mouth 3 (three) times daily as needed for Cough. [facility] acetaminoph en-codeine 300-30 mg tablet 3-0 05-03 00:00: 00 Yes [id number] 1{tbl} Take 1-2 tablets by mouth every 6 (six) hours as needed for Pain (scale 4-6). Indication s: acute pain [facility] benzonatate 100 mg capsule 3-0 05-03 00:00: 00 Yes [id number] 100mg Take 1 capsule by mouth 3 (three) times daily as needed for Cough. [facility] acetaminoph en-codeine 300-30 mg tablet 3-0 05-03 00:00: 00 Yes [id number] 1{tbl} Take 1-2 tablets by mouth every 6 (six) hours as needed for Pain (scale 4-6). Indication s: acute pain [facility] benzonatate 100 mg capsule 3-0 3 00:00: 00 Yes [id number] 100mg Take 1 capsule by mouth 3 (three) times daily as needed for Cough. [facility] acetaminoph en-codeine 300-30 mg tablet 3-0 3 00:00: 00 Yes [id number] 1{tbl} Take 1-2 tablets by mouth every 6 (six) hours as needed for Pain (scale 4-6). Indication s: acute pain [facility] benzonatate 100 mg capsule 2023-0 3 00:00: 00 Yes [id number] 100mg Take 1 capsule by mouth 3 (three) times daily as needed for Cough. [facility] acetaminoph en-codeine 300-30 mg tablet 2023-0 3-23 00:00: 00 Yes [id number] 1{tbl} Take 1-2 tablets by mouth every 6 (six) hours as needed for Pain (scale 4-6). Indication s: acute pain [facility] benzonatate 100 mg capsule 2023-0 3-23 00:00: 00 Yes [id number] 100mg Take 1 capsule by mouth 3 (three) times daily as needed for Cough. [facility] acetaminoph en-codeine 300-30 mg tablet 2023-0 3- 00:00: 00 Yes [id number] 1{tbl} Take 1-2 tablets by mouth every 6 (six) hours as needed for Pain (scale 4-6). Indication s: acute pain [facility] benzonatate 100 mg capsule 2023-0 3- 00:00: 00 Yes [id number] 100mg Take 1 capsule by mouth 3 (three) times daily as needed for Cough. [facility] acetaminoph en-codeine 300-30 mg tablet 2023-0 3 00:00: 00 Yes [id number] 1{tbl} Take 1-2 tablets by mouth every 6 (six) hours as needed for Pain (scale 4-6). Indication s: acute pain [facility] benzonatate 100 mg capsule 2023-0 323 00:00: 00 Yes [id number] 100mg Take 1 capsule by mouth 3 (three) times daily as needed for Cough. [facility] acetaminoph en-codeine 300-30 mg tablet 2023-0 323 00:00: 00 Yes [id number] 1{tbl} Take 1-2 tablets by mouth every 6 (six) hours as needed for Pain (scale 4-6). Indication s: acute pain [facility] benzonatate 100 mg capsule 2023-0 3-23 00:00: 00 Yes [id number] 100mg Take 1 capsule by mouth 3 (three) times daily as needed for Cough. [facility] acetaminoph en-codeine 300-30 mg tablet 2023-0 3-23 00:00: 00 Yes [id number] 1{tbl} Take 1-2 tablets by mouth every 6 (six) hours as needed for Pain (scale 4-6). Indication s: acute pain [facility] benzonatate 100 mg capsule 2023-0 3-23 00:00: 00 Yes [id number] 100mg Take 1 capsule by mouth 3 (three) times daily as needed for Cough. [facility] acetaminoph en-codeine 300-30 mg tablet 3-0 3 00:00: 00 Yes [id number] 1{tbl} Take 1-2 tablets by mouth every 6 (six) hours as needed for Pain (scale 4-6). Indication s: acute pain [facility] benzonatate 100 mg capsule 3-0 323 00:00: 00 Yes [id number] 100mg Take 1 capsule by mouth 3 (three) times daily as needed for Cough. [facility] acetaminoph en-codeine 300-30 mg tablet 3-0 3 00:00: 00 Yes [id number] 1{tbl} Take 1-2 tablets by mouth every 6 (six) hours as needed for Pain (scale 4-6). Indication s: acute pain [facility] benzonatate 100 mg capsule 3-0 323 00:00: 00 Yes [id number] 100mg Take 1 capsule by mouth 3 (three) times daily as needed for Cough. [facility] acetaminoph en-codeine 300-30 mg tablet 3-0 3 00:00: 00 Yes [id number] 1{tbl} Take 1-2 tablets by mouth every 6 (six) hours as needed for Pain (scale 4-6). Indication s: acute pain [facility] benzonatate 100 mg capsule 2023-0 3-23 00:00: 00 Yes [id number] 100mg Take 1 capsule by mouth 3 (three) times daily as needed for Cough. [facility] acetaminoph en-codeine 300-30 mg tablet 2023-0 3-23 00:00: 00 Yes [id number] 1{tbl} Take 1-2 tablets by mouth every 6 (six) hours as needed for Pain (scale 4-6). Indication s: acute pain [facility] benzonatate 100 mg capsule 3-0 3 00:00: 00 Yes [id number] 100mg Take 1 capsule by mouth 3 (three) times daily as needed for Cough. [facility] acetaminoph en-codeine 300-30 mg tablet 3-0 3 00:00: 00 Yes [id number] 1{tbl} Take 1-2 tablets by mouth every 6 (six) hours as needed for Pain (scale 4-6). Indication s: acute pain [facility] benzonatate 100 mg capsule 3-0 3 00:00: 00 Yes [id number] 100mg Take 1 capsule by mouth 3 (three) times daily as needed for Cough. [facility] acetaminoph en-codeine 300-30 mg tablet 3-0 3 00:00: 00 Yes [id number] 1{tbl} Take 1-2 tablets by mouth every 6 (six) hours as needed for Pain (scale 4-6). Indication s: acute pain [facility] benzonatate 100 mg capsule 3-0 3 00:00: 00 Yes [id number] 100mg Take 1 capsule by mouth 3 (three) times daily as needed for Cough. [facility] acetaminoph en-codeine 300-30 mg tablet 3-0 05-03 00:00: 00 Yes [id number] 1{tbl} Take 1-2 tablets by mouth every 6 (six) hours as needed for Pain (scale 4-6). Indication s: acute pain [facility] benzonatate 100 mg capsule 3-0 3 00:00: 00 Yes [id number] 100mg Take 1 capsule by mouth 3 (three) times daily as needed for Cough. [facility] acetaminoph en-codeine 300-30 mg tablet 3-0 3 00:00: 00 Yes [id number] 1{tbl} Take 1-2 tablets by mouth every 6 (six) hours as needed for Pain (scale 4-6). Indication s: acute pain [facility] benzonatate 100 mg capsule 2023-0 3-23 00:00: 00 Yes [id number] 100mg Take 1 capsule by mouth 3 (three) times daily as needed for Cough. [facility] acetaminoph en-codeine 300-30 mg tablet 3- 00:00: 00 Yes [id number] 1{tbl} Take 1-2 tablets by mouth every 6 (six) hours as needed for Pain (scale 4-6). Indication s: acute pain [facility] benzonatate 100 mg capsule 323 00:00: 00 Yes [id number] 100mg Take 1 capsule by mouth 3 (three) times daily as needed for Cough. [facility] nirmatrelvi r-ritonavir (PAXLOVID, EUA,) 300 mg (150 mg x 2)-100 mg tablet 3-16 00:00: 00 Yes [id number] 3{tbl} Take 3 tablets by mouth in the morning and 3 tablets in the evening. [facility] nirmatrelvi r-ritonavir (PAXLOVID, EUA,) 300 mg (150 mg x 2)-100 mg tablet 16 00:00: 00 Yes [id number] 3{tbl} Take 3 tablets by mouth in the morning and 3 tablets in the evening. [facility] nirmatrelvi r-ritonavir (PAXLOVID, EUA,) 300 mg (150 mg x 2)-100 mg tablet 16 00:00: 00 Yes [id number] 3{tbl} Take 3 tablets by mouth in the morning and 3 tablets in the evening. [facility] nirmatrelvi r-ritonavir (PAXLOVID, EUA,) 300 mg (150 mg x 2)-100 mg tablet 316 00:00: 00 Yes [id number] 3{tbl} Take 3 tablets by mouth in the morning and 3 tablets in the evening. [facility] nirmatrelvi r-ritonavir (PAXLOVID, EUA,) 300 mg (150 mg x 2)-100 mg tablet 3-16 00:00: 00 Yes [id number] 3{tbl} Take 3 tablets by mouth in the morning and 3 tablets in the evening. [facility] nirmatrelvi r-ritonavir (PAXLOVID, EUA,) 300 mg (150 mg x 2)-100 mg tablet 0 3-16 00:00: 00 Yes [id number] 3{tbl} Take 3 tablets by mouth in the morning and 3 tablets in the evening. [facility] nirmatrelvi r-ritonavir (PAXLOVID, EUA,) 300 mg (150 mg x 2)-100 mg tablet 0 3-16 00:00: 00 Yes [id number] 3{tbl} Take 3 tablets by mouth in the morning and 3 tablets in the evening. [facility] nirmatrelvi r-ritonavir (PAXLOVID, EUA,) 300 mg (150 mg x 2)-100 mg tablet 2022-0 3-16 00:00: 00 Yes [id number] 3{tbl} Take 3 tablets by mouth in the morning and 3 tablets in the evening. [facility] nirmatrelvi r-ritonavir (PAXLOVID, EUA,) 300 mg (150 mg x 2)-100 mg tablet 2022-0 3-16 00:00: 00 Yes [id number] 3{tbl} Take 3 tablets by mouth in the morning and 3 tablets in the evening. [facility] nirmatrelvi r-ritonavir (PAXLOVID, EUA,) 300 mg (150 mg x 2)-100 mg tablet 2022-0 3-16 00:00: 00 Yes [id number] 3{tbl} Take 3 tablets by mouth in the morning and 3 tablets in the evening. [facility] nirmatrelvi r-ritonavir (PAXLOVID, EUA,) 300 mg (150 mg x 2)-100 mg tablet 2022-0 3-16 00:00: 00 Yes [id number] 3{tbl} Take 3 tablets by mouth in the morning and 3 tablets in the evening. [facility] nirmatrelvi r-ritonavir (PAXLOVID, EUA,) 300 mg (150 mg x 2)-100 mg tablet 2022-0 3-16 00:00: 00 Yes [id number] 3{tbl} Take 3 tablets by mouth in the morning and 3 tablets in the evening. [facility] nirmatrelvi r-ritonavir (PAXLOVID, EUA,) 300 mg (150 mg x 2)-100 mg tablet 3-16 00:00: 00 Yes [id number] 3{tbl} Take 3 tablets by mouth in the morning and 3 tablets in the evening. [facility] nirmatrelvi r-ritonavir (PAXLOVID, EUA,) 300 mg (150 mg x 2)-100 mg tablet 16 00:00: 00 07-20 00:00 :00 No [id number] 3{tbl} Take 3 tablets by mouth in the morning and 3 tablets in the evening. [facility] penicillin g benzathine (BICILLIN L-A) injection 1.2 Million Units 04-12 20:30: 00 04-12 19:50 :00 No [id number] 1.210 [facility] penicillin g benzathine (BICILLIN L-A) injection 1.2 Million Units 04-12 20:30: 00 04-12 19:50 :00 No [id number] 1.210 1.2 Million Units, Intramuscu lar, ONCE, 1 dose, On Ara 04/12/22 at 1430, WILY
Re ason for Anti-Infec tive: Documented Infection< br>Documen manfred Infection Site: HEENT
D uration of Therapy: Other (see Comments) [facility] methylPREDN ISolone sod succ (SOLU-MEDRO L (PF)) injection 40 mg 2021-02 17:15: 00 12-18 16:31 :00 No [id number] 40mg [facility] methylPREDN ISolone sod succ (SOLU-MEDRO L (PF)) injection 40 mg 2021-02 17:15: 00 12-18 16:31 :00 No [id number] 40mg 40 mg, Intramuscu lar, ONCE, 1 dose, On Sat12/18/21 at 1115, Routine [facility] bromphenira mine-pseudo ephedrine-D M (BROMFED DM) 2-30-10 mg/5 mL syrup 2021-02 00:00: 00 Yes [id number] 5mL Take 5 mL by mouth 4 (four) times daily as needed for Congestion /Allergies . [facility] bromphenira mine-pseudo ephedrine-D M (BROMFED DM) 2-30-10 mg/5 mL syrup 2021-02 00:00: 00 Yes [id number] 5mL Take 5 mL by mouth 4 (four) times daily as needed for Congestion /Allergies . [facility] bromphenira mine-pseudo ephedrine-D M (BROMFED DM) 2-30-10 mg/5 mL syrup 2021-02 00:00: 00 Yes [id number] 5mL Take 5 mL by mouth 4 (four) times daily as needed for Congestion /Allergies . [facility] bromphenira mine-pseudo ephedrine-D M (BROMFED DM) 2-30-10 mg/5 mL syrup 2021-02 00:00: 00 Yes [id number] 5mL Take 5 mL by mouth 4 (four) times daily as needed for Congestion /Allergies . [facility] bromphenira mine-pseudo ephedrine-D M (BROMFED DM) 2-30-10 mg/5 mL syrup 2021-02 00:00: 00 Yes [id number] 5mL Take 5 mL by mouth 4 (four) times daily as needed for Congestion /Allergies . [facility] bromphenira mine-pseudo ephedrine-D M (BROMFED DM) 2-30-10 mg/5 mL syrup 2021-02 00:00: 00 Yes [id number] 5mL Take 5 mL by mouth 4 (four) times daily as needed for Congestion /Allergies . [facility] bromphenira mine-pseudo ephedrine-D M (BROMFED DM) 2-30-10 mg/5 mL syrup 2021-02 00:00: 00 Yes [id number] 5mL Take 5 mL by mouth 4 (four) times daily as needed for Congestion /Allergies . [facility] bromphenira mine-pseudo ephedrine-D M (BROMFED DM) 2-30-10 mg/5 mL syrup 2021-02 00:00: 00 Yes [id number] 5mL Take 5 mL by mouth 4 (four) times daily as needed for Congestion /Allergies . [facility] bromphenira mine-pseudo ephedrine-D M (BROMFED DM) 2-30-10 mg/5 mL syrup 2021-02 00:00: 00 Yes [id number] 5mL Take 5 mL by mouth 4 (four) times daily as needed for Congestion /Allergies . [facility] bromphenira mine-pseudo ephedrine-D M (BROMFED DM) 2-30-10 mg/5 mL syrup 2021-02 00:00: 00 Yes [id number] 5mL Take 5 mL by mouth 4 (four) times daily as needed for Congestion /Allergies . [facility] bromphenira mine-pseudo ephedrine-D M (BROMFED DM) 2-30-10 mg/5 mL syrup 2021-02 00:00: 00 Yes [id number] 5mL Take 5 mL by mouth 4 (four) times daily as needed for Congestion /Allergies . [facility] bromphenira mine-pseudo ephedrine-D M (BROMFED DM) 2-30-10 mg/5 mL syrup 2021-02 00:00: 00 Yes [id number] 5mL Take 5 mL by mouth 4 (four) times daily as needed for Congestion /Allergies . [facility] bromphenira mine-pseudo ephedrine-D M (BROMFED DM) 2-30-10 mg/5 mL syrup 2021-02 00:00: 00 Yes [id number] 5mL Take 5 mL by mouth 4 (four) times daily as needed for Congestion /Allergies . [facility] bromphenira mine-pseudo ephedrine-D M (BROMFED DM) 2-30-10 mg/5 mL syrup 2021-02 00:00: 00 Yes [id number] 5mL Take 5 mL by mouth 4 (four) times daily as needed for Congestion /Allergies . [facility] bromphenira mine-pseudo ephedrine-D M (BROMFED DM) 2-30-10 mg/5 mL syrup 2021-02 00:00: 00 Yes [id number] 5mL Take 5 mL by mouth 4 (four) times daily as needed for Congestion /Allergies . [facility] bromphenira mine-pseudo ephedrine-D M (BROMFED DM) 2-30-10 mg/5 mL syrup 2021-02 00:00: 00 Yes [id number] 5mL Take 5 mL by mouth 4 (four) times daily as needed for Congestion /Allergies . [facility] bromphenira mine-pseudo ephedrine-D M (BROMFED DM) 2-30-10 mg/5 mL syrup 2021-02 00:00: 00 Yes [id number] 5mL Take 5 mL by mouth 4 (four) times daily as needed for Congestion /Allergies . [facility] bromphenira mine-pseudo ephedrine-D M (BROMFED DM) 2-30-10 mg/5 mL syrup 2021-02 00:00: 00 Yes [id number] 5mL Take 5 mL by mouth 4 (four) times daily as needed for Congestion /Allergies . [facility] bromphenira mine-pseudo ephedrine-D M (BROMFED DM) 2-30-10 mg/5 mL syrup 2021-02 00:00: 00 Yes [id number] 5mL Take 5 mL by mouth 4 (four) times daily as needed for Congestion /Allergies . [facility] bromphenira mine-pseudo ephedrine-D M (BROMFED DM) 2-30-10 mg/5 mL syrup 2021-02 00:00: 00 Yes [id number] 5mL Take 5 mL by mouth 4 (four) times daily as needed for Congestion /Allergies . [facility] bromphenira mine-pseudo ephedrine-D M (BROMFED DM) 2-30-10 mg/5 mL syrup 2021-02 00:00: 00 Yes [id number] 5mL Take 5 mL by mouth 4 (four) times daily as needed for Congestion /Allergies . [facility] bromphenira mine-pseudo ephedrine-D M (BROMFED DM) 2-30-10 mg/5 mL syrup 2021-02 00:00: 00 Yes [id number] 5mL Take 5 mL by mouth 4 (four) times daily as needed for Congestion /Allergies . [facility] bromphenira mine-pseudo ephedrine-D M (BROMFED DM) 2-30-10 mg/5 mL syrup 2021-02 00:00: 00 Yes [id number] 5mL Take 5 mL by mouth 4 (four) times daily as needed for Congestion /Allergies . [facility] bromphenira mine-pseudo ephedrine-D M (BROMFED DM) 2-30-10 mg/5 mL syrup 2021-02 00:00: 00 Yes [id number] 5mL Take 5 mL by mouth 4 (four) times daily as needed for Congestion /Allergies . [facility] bromphenira mine-pseudo ephedrine-D M (BROMFED DM) 2-30-10 mg/5 mL syrup 2021-02 00:00: 00 Yes [id number] 5mL Take 5 mL by mouth 4 (four) times daily as needed for Congestion /Allergies . [facility] bromphenira mine-pseudo ephedrine-D M (BROMFED DM) 2-30-10 mg/5 mL syrup 2021-02 00:00: 00 Yes [id number] 5mL Take 5 mL by mouth 4 (four) times daily as needed for Congestion /Allergies . [facility] bromphenira mine-pseudo ephedrine-D M (BROMFED DM) 2-30-10 mg/5 mL syrup 2021-02 00:00: 00 Yes [id number] 5mL Take 5 mL by mouth 4 (four) times daily as needed for Congestion /Allergies . [facility] bromphenira mine-pseudo ephedrine-D M (BROMFED DM) 2-30-10 mg/5 mL syrup 2021-02 00:00: 00 Yes [id number] 5mL Take 5 mL by mouth 4 (four) times daily as needed for Congestion /Allergies . [facility] bromphenira mine-pseudo ephedrine-D M (BROMFED DM) 2-30-10 mg/5 mL syrup 2021-02 00:00: 00 Yes [id number] 5mL Take 5 mL by mouth 4 (four) times daily as needed for Congestion /Allergies . [facility] bromphenira mine-pseudo ephedrine-D M (BROMFED DM) 2-30-10 mg/5 mL syrup 2021-02 00:00: 00 Yes [id number] 5mL Take 5 mL by mouth 4 (four) times daily as needed for Congestion /Allergies . [facility] bromphenira mine-pseudo ephedrine-D M (BROMFED DM) 2-30-10 mg/5 mL syrup 2021-02 00:00: 00 Yes [id number] 5mL Take 5 mL by mouth 4 (four) times daily as needed for Congestion /Allergies . [facility] bromphenira mine-pseudo ephedrine-D M (BROMFED DM) 2-30-10 mg/5 mL syrup 2021-02 00:00: 00 Yes [id number] 5mL Take 5 mL by mouth 4 (four) times daily as needed for Congestion /Allergies . [facility] bromphenira mine-pseudo ephedrine-D M (BROMFED DM) 2-30-10 mg/5 mL syrup 2021-02 00:00: 00 Yes [id number] 5mL Take 5 mL by mouth 4 (four) times daily as needed for Congestion /Allergies . [facility] bromphenira mine-pseudo ephedrine-D M (BROMFED DM) 2-30-10 mg/5 mL syrup 2021-02 00:00: 00 Yes [id number] 5mL Take 5 mL by mouth 4 (four) times daily as needed for Congestion /Allergies . [facility] bromphenira mine-pseudo ephedrine-D M (BROMFED DM) 2-30-10 mg/5 mL syrup 2021-02 00:00: 00 Yes [id number] 5mL Take 5 mL by mouth 4 (four) times daily as needed for Congestion /Allergies . [facility] bromphenira mine-pseudo ephedrine-D M (BROMFED DM) 2-30-10 mg/5 mL syrup 2021-02 00:00: 00 Yes [id number] 5mL Take 5 mL by mouth 4 (four) times daily as needed for Congestion /Allergies . [facility] bromphenira mine-pseudo ephedrine-D M (BROMFED DM) 2-30-10 mg/5 mL syrup 2021-02 00:00: 00 Yes [id number] 5mL Take 5 mL by mouth 4 (four) times daily as needed for Congestion /Allergies . [facility] bromphenira mine-pseudo ephedrine-D M (BROMFED DM) 2-30-10 mg/5 mL syrup 2021-02 00:00: 00 Yes [id number] 5mL Take 5 mL by mouth 4 (four) times daily as needed for Congestion /Allergies . [facility] bromphenira mine-pseudo ephedrine-D M (BROMFED DM) 2-30-10 mg/5 mL syrup 2021-02 00:00: 00 Yes [id number] 5mL Take 5 mL by mouth 4 (four) times daily as needed for Congestion /Allergies . [facility] bromphenira mine-pseudo ephedrine-D M (BROMFED DM) 2-30-10 mg/5 mL syrup 2021-02 00:00: 00 Yes [id number] 5mL Take 5 mL by mouth 4 (four) times daily as needed for Congestion /Allergies . [facility] bromphenira mine-pseudo ephedrine-D M (BROMFED DM) 2-30-10 mg/5 mL syrup 2021-02 00:00: 00 Yes [id number] 5mL Take 5 mL by mouth 4 (four) times daily as needed for Congestion /Allergies . [facility] bromphenira mine-pseudo ephedrine-D M (BROMFED DM) 2-30-10 mg/5 mL syrup 2021-02 00:00: 00 Yes [id number] 5mL Take 5 mL by mouth 4 (four) times daily as needed for Congestion /Allergies . [facility] bromphenira mine-pseudo ephedrine-D M (BROMFED DM) 2-30-10 mg/5 mL syrup 2021-02 00:00: 00 Yes [id number] 5mL Take 5 mL by mouth 4 (four) times daily as needed for Congestion /Allergies . [facility] ondansetron (ZOFRAN-ODT ) disintegrat ing tablet 4 mg 2021-02 15:30: 00 12-14 14:43 :00 No [id number] 4mg [facility] ondansetron (ZOFRAN-ODT ) disintegrat ing tablet 4 mg 2021-02 15:30: 00 12-14 14:43 :00 No [id number] 4mg 4 mg, Oral, ONCE, 1 dose, On Ara 12/14/21 at 1030, Routine [facility] bromphenira mine-pseudo ephedrine-D M 2-30-10 mg/5 mL syrup 2021-02 00:00: 00 12-20 05:59 :00 No [id number] 5mL Take 5 mL by mouth 4 (four) times daily as needed for Congestion /Allergies for up to 5 days. [facility] oseltamivir (TAMIFLU) 75 mg capsule 2021-02 00:00: 00 12-20 05:59 :00 No [id number] 75mg Take 1 capsule by mouth in the morning and 1 capsule in the evening. Do all this for 5 days. [facility] bromphenira mine-pseudo ephedrine-D M 2-30-10 mg/5 mL syrup 2021-02 00:00: 00 12-20 05:59 :00 No [id number] 5mL Take 5 mL by mouth 4 (four) times daily as needed for Congestion /Allergies for up to 5 days. [facility] oseltamivir (TAMIFLU) 75 mg capsule 2021-02 00:00: 00 12-20 05:59 :00 No [id number] 75mg Take 1 capsule by mouth in the morning and 1 capsule in the evening. Do all this for 5 days. [facility] oseltamivir (TAMIFLU) 75 mg capsule 2021-02 00:00: 00 12-20 05:59 :00 No [id number] 75mg Take 1 capsule by mouth in the morning and 1 capsule in the evening. Do all this for 5 days. [facility] oseltamivir (TAMIFLU) 75 mg capsule 2021-02 00:00: 12-20 05:59 :00 No [id number] 75mg Take 1 capsule by mouth in the morning and 1 capsule in the evening. Do all this for 5 days. [facility] bromphenira mine-pseudo ephedrine-D M 2-30-10 mg/5 mL syrup 2021-02 00:00: 00 12-18 00:00 :00 No [id number] 5mL Take 5 mL by mouth 4 (four) times daily as needed for Congestion /Allergies for up to 5 days. [facility] amoxicillin -clavulanat e (AUGMENTIN) 875-125 mg per tablet 09-17 00:00: 00 09-28 04:59 :00 No [id number] 1{tbl} Take 1 tablet by mouth in the morning and 1 tablet in the evening. Do all this for 10 days. [facility] amoxicillin -clavulanat e (AUGMENTIN) 875-125 mg per tablet 09-17 00:00: 00 09-28 04:59 :00 No [id number] 1{tbl} Take 1 tablet by mouth in the morning and 1 tablet in the evening. Do all this for 10 days. [facility] polymyxin B sulf-trimet hoprim 10,000 unit- 1 mg/mL ophthalmic drops 09-17 00:00: 00 09-25 04:59 :00 No [id number] 1[drp] Place 1 Drop in left eye every 6 (six) hours for 7 days. [facility] polymyxin B sulf-trimet hoprim 10,000 unit- 1 mg/mL ophthalmic drops 09-17 00:00: 00 09-25 04:59 :00 No [id number] 1[drp] Place 1 Drop in left eye every 6 (six) hours for 7 days. [facility] predniSONE 10 mg tablet 09-17 00:00: 00 09-21 04:59 :00 No [id number] 10mg Take 1 tablet by mouth in the morning for 3 days. [facility] predniSONE 10 mg tablet 09-17 00:00: 09-21 04:59 :00 No [id number] 10mg Take 1 tablet by mouth in the morning for 3 days. [facility] penicillin g benzathine (BICILLIN L-A) injection 1.2 Million Units 08-23 16:15: 00 08-23 15:10 :00 No [id number] 1.210 [facility] penicillin g benzathine (BICILLIN L-A) injection 1.2 Million Units 08-23 16:15: 00 08-23 15:10 :00 No [id number] 1.210 1.2 Million Units, Intramuscu lar, ONCE, 1 dose, On Sat08/23/21 at 1115, WILY
Re ason for Anti-Infec tive: Documented Infection< br>Documen manfred Infection Site: HEENT
D uration of Therapy: Other (see Comments) [facility] bromphenira mine-pseudo ephedrine-D M (BROMFED DM) 2-30-10 mg/5 mL syrup 08-23 00:00: 00 Yes [id number] 5mL Take 5 mL by mouth 4 (four) times daily as needed for Congestion /Allergies . [facility] bromphenira mine-pseudo ephedrine-D M (BROMFED DM) 2-30-10 mg/5 mL syrup 08-23 00:00: 00 Yes [id number] 5mL Take 5 mL by mouth 4 (four) times daily as needed for Congestion /Allergies . [facility] bromphenira mine-pseudo ephedrine-D M (BROMFED DM) 2-30-10 mg/5 mL syrup 0 13 00:00: 00 Yes [id number] 5mL Take 5 mL by mouth 4 (four) times daily as needed for Congestion /Allergies . [facility] bromphenira mine-pseudo ephedrine-D M (BROMFED DM) 2-30-10 mg/5 mL syrup 2021-0 7-13 00:00: 00 Yes [id number] 5mL Take 5 mL by mouth 4 (four) times daily as needed for Congestion /Allergies . [facility] bromphenira mine-pseudo ephedrine-D M (BROMFED DM) 2-30-10 mg/5 mL syrup 0 08-23 00:00: 00 12-14 00:00 :00 No [id number] 5mL Take 5 mL by mouth 4 (four) times daily as needed for Congestion /Allergies . [facility] ARIPiprazol e (ABILIFY) 2 mg tablet 0 05-14 15:45: 41 Yes 2mg Take 2 mg by mouth daily. [facility] ARIPiprazol e (ABILIFY) 2 mg tablet 0 05-14 15:45: 41 Yes 2mg Take 2 mg by mouth daily. [facility] ARIPiprazol e (ABILIFY) 2 mg tablet 05-14 15:45: 41 Yes 2mg Take 2 mg by mouth daily. [facility] ARIPiprazol e (ABILIFY) 2 mg tablet 0 05-14 15:45: 41 Yes 2mg Take 2 mg by mouth daily. [facility] ARIPiprazol e (ABILIFY) 2 mg tablet 0 05-14 15:45: 41 Yes 2mg Take 2 mg by mouth daily. [facility] ARIPiprazol e (ABILIFY) 2 mg tablet 0 05-14 15:45: 41 Yes 2mg Take 2 mg by mouth daily. [facility] ARIPiprazol e (ABILIFY) 2 mg tablet 0 05-14 15:45: 41 Yes 2mg Take 2 mg by mouth daily. [facility] ARIPiprazol e (ABILIFY) 2 mg tablet 05-14 15:45: 41 Yes 2mg Take 2 mg by mouth daily. [facility] ARIPiprazol e (ABILIFY) 2 mg tablet 05-14 15:45: 41 Yes 2mg Take 2 mg by mouth daily. [facility] ARIPiprazol e (ABILIFY) 2 mg tablet 05-14 15:45: 41 Yes 2mg Take 2 mg by mouth daily. [facility] ARIPiprazol e (ABILIFY) 2 mg tablet 05-14 15:45: 41 Yes 2mg Take 2 mg by mouth daily. [facility] ARIPiprazol e (ABILIFY) 2 mg tablet 05-14 15:45: 41 Yes 2mg Take 2 mg by mouth daily. [facility] ARIPiprazol e (ABILIFY) 2 mg tablet 05-14 15:45: 41 Yes 2mg Take 2 mg by mouth daily. [facility] ARIPiprazol e (ABILIFY) 2 mg tablet 05-14 15:45: 41 Yes 2mg Take 2 mg by mouth daily. [facility] ARIPiprazol e (ABILIFY) 2 mg tablet 05-14 15:45: 41 Yes 2mg Take 2 mg by mouth daily. [facility] ARIPiprazol e (ABILIFY) 2 mg tablet 05-14 15:45: 41 Yes 2mg Take 2 mg by mouth daily. [facility] ARIPiprazol e (ABILIFY) 2 mg tablet 05-14 15:45: 41 Yes 2mg Take 2 mg by mouth daily. [facility] ARIPiprazol e (ABILIFY) 2 mg tablet 05-14 15:45: 41 Yes 2mg Take 2 mg by mouth daily. [facility] ARIPiprazol e (ABILIFY) 2 mg tablet 05-14 15:45: 41 Yes 2mg Take 2 mg by mouth daily. [facility] ARIPiprazol e (ABILIFY) 2 mg tablet 05-14 15:45: 41 Yes 2mg Take 2 mg by mouth daily. [facility] ARIPiprazol e (ABILIFY) 2 mg tablet 05-14 15:45: 41 Yes 2mg Take 2 mg by mouth daily. [facility] ARIPiprazol e (ABILIFY) 2 mg tablet 05-14 15:45: 41 Yes 2mg Take 2 mg by mouth daily. [facility] ARIPiprazol e (ABILIFY) 2 mg tablet 05-14 15:45: 41 Yes 2mg Take 2 mg by mouth daily. [facility] ARIPiprazol e (ABILIFY) 2 mg tablet 05-14 15:45: 41 Yes 2mg Take 2 mg by mouth daily. [facility] ARIPiprazol e (ABILIFY) 2 mg tablet 05-14 15:45: 41 Yes 2mg Take 2 mg by mouth daily. [facility] ARIPiprazol e (ABILIFY) 2 mg tablet 05-14 15:45: 41 Yes 2mg Take 2 mg by mouth daily. [facility] ARIPiprazol e (ABILIFY) 2 mg tablet 05-14 15:45: 41 Yes 2mg Take 2 mg by mouth daily. [facility] ARIPiprazol e (ABILIFY) 2 mg tablet 05-14 15:45: 41 Yes 2mg Take 2 mg by mouth daily. [facility] ARIPiprazol e (ABILIFY) 2 mg tablet 05-14 15:45: 41 Yes 2mg Take 2 mg by mouth daily. [facility] ARIPiprazol e (ABILIFY) 2 mg tablet 05-14 15:45: 41 Yes 2mg Take 2 mg by mouth daily. [facility] ARIPiprazol e (ABILIFY) 2 mg tablet 05-14 15:45: 41 Yes 2mg Take 2 mg by mouth daily. [facility] ARIPiprazol e (ABILIFY) 2 mg tablet 05-14 15:45: 41 Yes 2mg Take 2 mg by mouth daily. [facility] ARIPiprazol e (ABILIFY) 2 mg tablet 05-14 15:45: 41 Yes 2mg Take 2 mg by mouth daily. [facility] ARIPiprazol e (ABILIFY) 2 mg tablet 05-14 15:45: 41 Yes 2mg Take 2 mg by mouth daily. [facility] ARIPiprazol e (ABILIFY) 2 mg tablet 05-14 15:45: 41 Yes 2mg Take 2 mg by mouth daily. [facility] ARIPiprazol e (ABILIFY) 2 mg tablet 05-14 15:45: 41 Yes 2mg Take 2 mg by mouth daily. [facility] ARIPiprazol e (ABILIFY) 2 mg tablet 05-14 15:45: 41 Yes 2mg Take 2 mg by mouth daily. [facility] ARIPiprazol e (ABILIFY) 2 mg tablet 05-14 15:45: 41 Yes 2mg Take 2 mg by mouth daily. [facility] ARIPiprazol e (ABILIFY) 2 mg tablet 05-14 15:45: 41 Yes 2mg Take 2 mg by mouth daily. [facility] ARIPiprazol e (ABILIFY) 2 mg tablet 05-14 15:45: 41 Yes 2mg Take 2 mg by mouth daily. [facility] ARIPiprazol e (ABILIFY) 2 mg tablet 05-14 15:45: 41 Yes 2mg Take 2 mg by mouth daily. [facility] ARIPiprazol e (ABILIFY) 2 mg tablet 05-14 15:45: 41 Yes 2mg Take 2 mg by mouth daily. [facility] ARIPiprazol e (ABILIFY) 2 mg tablet 05-14 15:45: 41 Yes 2mg Take 2 mg by mouth daily. [facility] ARIPiprazol e (ABILIFY) 2 mg tablet 05-14 15:45: 41 Yes 2mg Take 2 mg by mouth daily. [facility] ARIPiprazol e (ABILIFY) 2 mg tablet 05-14 15:45: 41 Yes 2mg Take 2 mg by mouth daily. [facility] ARIPiprazol e (ABILIFY) 2 mg tablet 05-14 15:45: 41 Yes 2mg Take 2 mg by mouth daily. [facility] ARIPiprazol e (ABILIFY) 2 mg tablet 05-14 15:45: 41 Yes 2mg Take 2 mg by mouth daily. [facility] ARIPiprazol e (ABILIFY) 2 mg tablet 05-14 15:45: 41 Yes 2mg Take 2 mg by mouth daily. [facility] ARIPiprazol e (ABILIFY) 2 mg tablet 05-14 15:45: 41 Yes 2mg Take 2 mg by mouth daily. [facility] ARIPiprazol e (ABILIFY) 2 mg tablet 05-14 15:45: 41 Yes 2mg Take 2 mg by mouth daily. [facility] aluminum chloride (DRYSOL) 20 % external solution 05-26 00:00: 00 Yes [id number] Apply to affected areas on palms nightly as tolerated for one week then decrease to every other night [facility] aluminum chloride (DRYSOL) 20 % external solution 05-26 00:00: 00 Yes [id number] Apply to affected areas on palms nightly as tolerated for one week then decrease to every other night [facility] aluminum chloride (DRYSOL) 20 % external solution 0 15 00:00: 00 Yes [id number] Apply to affected areas on palms nightly as tolerated for one week then decrease to every other night [facility] aluminum chloride (DRYSOL) 20 % external solution 0 15 00:00: 00 Yes [id number] Apply to affected areas on palms nightly as tolerated for one week then decrease to every other night [facility] aluminum chloride (DRYSOL) 20 % external solution 15 00:00: 00 Yes [id number] Apply to affected areas on palms nightly as tolerated for one week then decrease to every other night [facility] aluminum chloride (DRYSOL) 20 % external solution 15 00:00: 00 Yes [id number] Apply to affected areas on palms nightly as tolerated for one week then decrease to every other night [facility] aluminum chloride (DRYSOL) 20 % external solution 15 00:00: 00 Yes [id number] Apply to affected areas on palms nightly as tolerated for one week then decrease to every other night [facility] aluminum chloride (DRYSOL) 20 % external solution 0 15 00:00: 00 Yes [id number] Apply to affected areas on palms nightly as tolerated for one week then decrease to every other night [facility] aluminum chloride (DRYSOL) 20 % external solution 15 00:00: 00 Yes [id number] Apply to affected areas on palms nightly as tolerated for one week then decrease to every other night [facility] aluminum chloride (DRYSOL) 20 % external solution 0 15 00:00: 00 Yes [id number] Apply to affected areas on palms nightly as tolerated for one week then decrease to every other night [facility] aluminum chloride (DRYSOL) 20 % external solution 0 15 00:00: 00 Yes [id number] Apply to affected areas on palms nightly as tolerated for one week then decrease to every other night [facility] aluminum chloride (DRYSOL) 20 % external solution 05-26 00:00: 00 Yes [id number] Apply to affected areas on palms nightly as tolerated for one week then decrease to every other night [facility] aluminum chloride (DRYSOL) 20 % external solution 05-26 00:00: 00 Yes [id number] Apply to affected areas on palms nightly as tolerated for one week then decrease to every other night [facility] aluminum chloride (DRYSOL) 20 % external solution 05-26 00:00: 00 Yes [id number] Apply to affected areas on palms nightly as tolerated for one week then decrease to every other night [facility] aluminum chloride (DRYSOL) 20 % external solution 05-26 00:00: 00 Yes [id number] Apply to affected areas on palms nightly as tolerated for one week then decrease to every other night [facility] aluminum chloride (DRYSOL) 20 % external solution 05-26 00:00: 00 Yes [id number] Apply to affected areas on palms nightly as tolerated for one week then decrease to every other night [facility] aluminum chloride (DRYSOL) 20 % external solution 05-26 00:00: 00 Yes [id number] Apply to affected areas on palms nightly as tolerated for one week then decrease to every other night [facility] aluminum chloride (DRYSOL) 20 % external solution 05-26 00:00: 00 Yes [id number] Apply to affected areas on palms nightly as tolerated for one week then decrease to every other night [facility] aluminum chloride (DRYSOL) 20 % external solution 05-26 00:00: 00 Yes [id number] Apply to affected areas on palms nightly as tolerated for one week then decrease to every other night [facility] aluminum chloride (DRYSOL) 20 % external solution 05-26 00:00: 00 Yes [id number] Apply to affected areas on palms nightly as tolerated for one week then decrease to every other night [facility] aluminum chloride (DRYSOL) 20 % external solution 05-26 00:00: 00 Yes [id number] Apply to affected areas on palms nightly as tolerated for one week then decrease to every other night [facility] aluminum chloride (DRYSOL) 20 % external solution 0 15 00:00: 00 Yes [id number] Apply to affected areas on palms nightly as tolerated for one week then decrease to every other night [facility] aluminum chloride (DRYSOL) 20 % external solution 0 15 00:00: 00 Yes [id number] Apply to affected areas on palms nightly as tolerated for one week then decrease to every other night [facility] aluminum chloride (DRYSOL) 20 % external solution 0 15 00:00: 00 Yes [id number] Apply to affected areas on palms nightly as tolerated for one week then decrease to every other night [facility] aluminum chloride (DRYSOL) 20 % external solution 0 15 00:00: 00 Yes [id number] Apply to affected areas on palms nightly as tolerated for one week then decrease to every other night [facility] aluminum chloride (DRYSOL) 20 % external solution 0 15 00:00: 00 Yes [id number] Apply to affected areas on palms nightly as tolerated for one week then decrease to every other night [facility] aluminum chloride (DRYSOL) 20 % external solution 0 15 00:00: 00 Yes [id number] Apply to affected areas on palms nightly as tolerated for one week then decrease to every other night [facility] aluminum chloride (DRYSOL) 20 % external solution 0 15 00:00: 00 Yes [id number] Apply to affected areas on palms nightly as tolerated for one week then decrease to every other night [facility] aluminum chloride (DRYSOL) 20 % external solution 0 15 00:00: 00 Yes [id number] Apply to affected areas on palms nightly as tolerated for one week then decrease to every other night [facility] aluminum chloride (DRYSOL) 20 % external solution 0 15 00:00: 00 Yes [id number] Apply to affected areas on palms nightly as tolerated for one week then decrease to every other night [facility] aluminum chloride (DRYSOL) 20 % external solution 15 00:00: 00 Yes [id number] Apply to affected areas on palms nightly as tolerated for one week then decrease to every other night [facility] aluminum chloride (DRYSOL) 20 % external solution 15 00:00: 00 Yes [id number] Apply to affected areas on palms nightly as tolerated for one week then decrease to every other night [facility] aluminum chloride (DRYSOL) 20 % external solution 0 15 00:00: 00 Yes [id number] Apply to affected areas on palms nightly as tolerated for one week then decrease to every other night [facility] aluminum chloride (DRYSOL) 20 % external solution 15 00:00: 00 Yes [id number] Apply to affected areas on palms nightly as tolerated for one week then decrease to every other night [facility] aluminum chloride (DRYSOL) 20 % external solution 15 00:00: 00 Yes [id number] Apply to affected areas on palms nightly as tolerated for one week then decrease to every other night [facility] aluminum chloride (DRYSOL) 20 % external solution 15 00:00: 00 Yes [id number] Apply to affected areas on palms nightly as tolerated for one week then decrease to every other night [facility] aluminum chloride (DRYSOL) 20 % external solution 15 00:00: 00 Yes [id number] Apply to affected areas on palms nightly as tolerated for one week then decrease to every other night [facility] aluminum chloride (DRYSOL) 20 % external solution 0 15 00:00: 00 Yes [id number] Apply to affected areas on palms nightly as tolerated for one week then decrease to every other night [facility] aluminum chloride (DRYSOL) 20 % external solution 0 15 00:00: 00 Yes [id number] Apply to affected areas on palms nightly as tolerated for one week then decrease to every other night [facility] aluminum chloride (DRYSOL) 20 % external solution 0 15 00:00: 00 Yes [id number] Apply to affected areas on palms nightly as tolerated for one week then decrease to every other night [facility] aluminum chloride (DRYSOL) 20 % external solution 15 00:00: 00 Yes [id number] Apply to affected areas on palms nightly as tolerated for one week then decrease to every other night [facility] aluminum chloride (DRYSOL) 20 % external solution 15 00:00: 00 Yes [id number] Apply to affected areas on palms nightly as tolerated for one week then decrease to every other night [facility] aluminum chloride (DRYSOL) 20 % external solution 15 00:00: 00 Yes [id number] Apply to affected areas on palms nightly as tolerated for one week then decrease to every other night [facility] aluminum chloride (DRYSOL) 20 % external solution 15 00:00: 00 Yes [id number] Apply to affected areas on palms nightly as tolerated for one week then decrease to every other night [facility] aluminum chloride (DRYSOL) 20 % external solution 15 00:00: 00 Yes [id number] Apply to affected areas on palms nightly as tolerated for one week then decrease to every other night [facility] aluminum chloride (DRYSOL) 20 % external solution 15 00:00: 00 Yes [id number] Apply to affected areas on palms nightly as tolerated for one week then decrease to every other night [facility] aluminum chloride (DRYSOL) 20 % external solution 0 15 00:00: 00 Yes [id number] Apply to affected areas on palms nightly as tolerated for one week then decrease to every other night [facility] aluminum chloride (DRYSOL) 20 % external solution 0 15 00:00: 00 Yes [id number] Apply to affected areas on palms nightly as tolerated for one week then decrease to every other night [facility] aluminum chloride (DRYSOL) 20 % external solution 0 4-15 00:00: 00 Yes [id number] Apply to affected areas on palms nightly as tolerated for one week then decrease to every other night [facility] aluminum chloride (DRYSOL) 20 % external solution 0 415 00:00: 00 Yes [id number] Apply to affected areas on palms nightly as tolerated for one week then decrease to every other night [facility] doxycycline 100 mg capsule 0 2-20 00:00: 00 Yes 100mg Take 1 capsule by mouth 2 (two) times daily. [facility] clindamycin -benzoyl peroxide gel 0 2-20 00:00: 00 Yes Apply to area(s) every morning. [facility] 0 220 00:00: 00 Yes 100mg Take 1 capsule by mouth 2 (two) times daily. [facility] clindamycin -benzoyl peroxide gel 0 220 00:00: 00 Yes Apply to area(s) every morning. [facility] 0 220 00:00: 00 Yes 100mg Take 1 capsule by mouth 2 (two) times daily. [facility] clindamycin -benzoyl peroxide gel 0 220 00:00: 00 Yes Apply to area(s) every morning. [facility] doxycycline 100 mg capsule 0 220 00:00: 00 Yes 100mg Take 1 capsule by mouth 2 (two) times daily. [facility] clindamycin -benzoyl peroxide gel 0 220 00:00: 00 Yes Apply to area(s) every morning. [facility] doxycycline 100 mg capsule 0 2-20 00:00: 00 Yes 100mg Take 1 capsule by mouth 2 (two) times daily. [facility] clindamycin -benzoyl peroxide gel 0 2-20 00:00: 00 Yes Apply to area(s) every morning. [facility] 0 2-20 00:00: 00 Yes 100mg Take 1 capsule by mouth 2 (two) times daily. [facility] clindamycin -benzoyl peroxide gel 2019-0 2-20 00:00: 00 Yes Apply to area(s) every morning. [facility] doxycycline 100 mg capsule 0 2-20 00:00: 00 Yes 100mg Take 1 capsule by mouth 2 (two) times daily. [facility] clindamycin -benzoyl peroxide gel 2018-0 2-20 00:00: 00 Yes Apply to area(s) every morning. [facility] doxycycline 100 mg capsule 0 2-20 00:00: 00 Yes 100mg Take 1 capsule by mouth 2 (two) times daily. [facility] clindamycin -benzoyl peroxide gel 2018-0 220 00:00: 00 Yes Apply to area(s) every morning. [facility] doxycycline 100 mg capsule 0 220 00:00: 00 Yes 100mg Take 1 capsule by mouth 2 (two) times daily. [facility] clindamycin -benzoyl peroxide gel 2018-0 220 00:00: 00 Yes Apply to area(s) every morning. [facility] doxycycline 100 mg capsule 0 220 00:00: 00 Yes 100mg Take 1 capsule by mouth 2 (two) times daily. [facility] clindamycin -benzoyl peroxide gel 0 220 00:00: 00 Yes Apply to area(s) every morning. [facility] doxycycline 100 mg capsule 0 220 00:00: 00 Yes 100mg Take 1 capsule by mouth 2 (two) times daily. [facility] clindamycin -benzoyl peroxide gel 2018-0 220 00:00: 00 Yes Apply to area(s) every morning. [facility] doxycycline 100 mg capsule 20190 2-20 00:00: 00 Yes 100mg Take 1 capsule by mouth 2 (two) times daily. [facility] clindamycin -benzoyl peroxide gel 2019-0 2-20 00:00: 00 Yes Apply to area(s) every morning. [facility] doxycycline 100 mg capsule 2019-0 2-20 00:00: 00 Yes 100mg Take 1 capsule by mouth 2 (two) times daily. [facility] clindamycin -benzoyl peroxide gel 20190 2-20 00:00: 00 Yes Apply to area(s) every morning. [facility] doxycycline 100 mg capsule 0 2-20 00:00: 00 Yes 100mg Take 1 capsule by mouth 2 (two) times daily. [facility] clindamycin -benzoyl peroxide gel 20190 2-20 00:00: 00 Yes Apply to area(s) every morning. [facility] 0 220 00:00: 00 Yes 100mg Take 1 capsule by mouth 2 (two) times daily. [facility] clindamycin -benzoyl peroxide gel 0 220 00:00: 00 Yes Apply to area(s) every morning. [facility] doxycycline 100 mg capsule 0 220 00:00: 00 Yes 100mg Take 1 capsule by mouth 2 (two) times daily. [facility] clindamycin -benzoyl peroxide gel 0 220 00:00: 00 Yes Apply to area(s) every morning. [facility] doxycycline 100 mg capsule 0 220 00:00: 00 Yes 100mg Take 1 capsule by mouth 2 (two) times daily. [facility] clindamycin -benzoyl peroxide gel 0 220 00:00: 00 Yes Apply to area(s) every morning. [facility] doxycycline 100 mg capsule 0 2-20 00:00: 00 Yes 100mg Take 1 capsule by mouth 2 (two) times daily. [facility] clindamycin -benzoyl peroxide gel 0 220 00:00: 00 Yes Apply to area(s) every morning. [facility] 0 2-20 00:00: 00 Yes 100mg Take 1 capsule by mouth 2 (two) times daily. [facility] clindamycin -benzoyl peroxide gel 20190 2-20 00:00: 00 Yes Apply to area(s) every morning. [facility] mg capsule 0 2-20 00:00: 00 Yes 100mg Take 1 capsule by mouth 2 (two) times daily. [facility] clindamycin -benzoyl peroxide gel 2019-0 2-20 00:00: 00 Yes Apply to area(s) every morning. [facility] mg capsule 0 2-20 00:00: 00 Yes 100mg Take 1 capsule by mouth 2 (two) times daily. [facility] clindamycin -benzoyl peroxide gel 2019-0 2-20 00:00: 00 Yes Apply to area(s) every morning. [facility] capsule 0 2-20 00:00: 00 Yes 100mg Take 1 capsule by mouth 2 (two) times daily. [facility] clindamycin -benzoyl peroxide gel 0 2-20 00:00: 00 Yes Apply to area(s) every morning. [facility] mg capsule 0 2-20 00:00: 00 Yes 100mg Take 1 capsule by mouth 2 (two) times daily. [facility] clindamycin -benzoyl peroxide gel 2018-0 2-20 00:00: 00 Yes Apply to area(s) every morning. [facility] mg capsule 0 2-20 00:00: 00 Yes 100mg Take 1 capsule by mouth 2 (two) times daily. [facility] clindamycin -benzoyl peroxide gel 0 2-20 00:00: 00 Yes Apply to area(s) every morning. [facility] do[facility] mg capsule 20190 2-20 00:00: 00 Yes 100mg Take 1 capsule by mouth 2 (two) times daily. [facility] clindamycin -benzoyl peroxide gel 2019-0 2-20 00:00: 00 Yes Apply to area(s) every morning. [facility] doxycycl[facility] mg capsule 20190 2-20 00:00: 00 Yes 100mg Take 1 capsule by mouth 2 (two) times daily. [facility] clindamycin -benzoyl peroxide gel 2019-0 2-20 00:00: 00 Yes Apply to area(s) every morning. [facility] doxycycline 100 mg capsule 20190 2-20 00:00: 00 Yes 100mg Take 1 capsule by mouth 2 (two) times daily. [facility] clindamycin -benzoyl peroxide gel 2019-0 2-20 00:00: 00 Yes Apply to area(s) every morning. [facility] mg capsule 0 2-20 00:00: 00 Yes 100mg Take 1 capsule by mouth 2 (two) times daily. [facility] clindamycin -benzoyl peroxide gel 0 2-20 00:00: 00 Yes Apply to area(s) every morning. [facility] mg capsule 0 220 00:00: 00 Yes 100mg Take 1 capsule by mouth 2 (two) times daily. [facility] clindamycin -benzoyl peroxide gel 2018-0 220 00:00: 00 Yes Apply to area(s) every morning. [facility] doxycycline 100 mg capsule 0 220 00:00: 00 Yes 100mg Take 1 capsule by mouth 2 (two) times daily. [facility] clindamycin -benzoyl peroxide gel 0 220 00:00: 00 Yes Apply to area(s) every morning. [facility] doxycycline 100 mg capsule 0 220 00:00: 00 Yes 100mg Take 1 capsule by mouth 2 (two) times daily. [facility] clindamycin -benzoyl peroxide gel 0 220 00:00: 00 Yes Apply to area(s) every morning. [facility] doxycycline 100 mg capsule 0 2-20 00:00: 00 Yes 100mg Take 1 capsule by mouth 2 (two) times daily. [facility] clindamycin -benzoyl peroxide gel 2019-0 2-20 00:00: 00 Yes Apply to area(s) every morning. [facility] doxycycline 100 mg capsule 0 2-20 00:00: 00 Yes 100mg Take 1 capsule by mouth 2 (two) times daily. [facility] clindamycin -benzoyl peroxide gel 2019-0 2-20 00:00: 00 Yes Apply to area(s) every morning. [facility] 0 220 00:00: 00 Yes 100mg Take 1 capsule by mouth 2 (two) times daily. [facility] clindamycin -benzoyl peroxide gel 0 220 00:00: 00 Yes Apply to area(s) every morning. [facility] doxycycline 100 mg capsule 0 220 00:00: 00 Yes 100mg Take 1 capsule by mouth 2 (two) times daily. [facility] clindamycin -benzoyl peroxide gel 0 220 00:00: 00 Yes Apply to area(s) every morning. [facility] doxycycline 100 mg capsule 0 220 00:00: 00 Yes 100mg Take 1 capsule by mouth 2 (two) times daily. [facility] clindamycin -benzoyl peroxide gel 0 220 00:00: 00 Yes Apply to area(s) every morning. [facility] doxycycline 100 mg capsule 0 220 00:00: 00 Yes 100mg Take 1 capsule by mouth 2 (two) times daily. [facility] clindamycin -benzoyl peroxide gel 0 220 00:00: 00 Yes Apply to area(s) every morning. [facility] doxycycline 100 mg capsule 0 220 00:00: 00 Yes 100mg Take 1 capsule by mouth 2 (two) times daily. [facility] clindamycin -benzoyl peroxide gel 0 220 00:00: 00 Yes Apply to area(s) every morning. [facility] doxycycline 100 mg capsule 0 220 00:00: 00 Yes 100mg Take 1 capsule by mouth 2 (two) times daily. [facility] clindamycin -benzoyl peroxide gel 0 220 00:00: 00 Yes Apply to area(s) every morning. [facility] doxycycline 100 mg capsule 0 220 00:00: 00 Yes 100mg Take 1 capsule by mouth 2 (two) times daily. [facility] clindamycin -benzoyl peroxide gel 2018-0 220 00:00: 00 Yes Apply to area(s) every morning. [facility] doxycycline 100 mg capsule 0 2-20 00:00: 00 Yes 100mg Take 1 capsule by mouth 2 (two) times daily. [facility] clindamycin -benzoyl peroxide gel 0 2-20 00:00: 00 Yes Apply to area(s) every morning. [facility] mg capsule 20190 2-20 00:00: 00 Yes 100mg Take 1 capsule by mouth 2 (two) times daily. [facility] clindamycin -benzoyl peroxide gel 0 2-20 00:00: 00 Yes Apply to area(s) every morning. [facility] mg capsule 0 220 00:00: 00 Yes 100mg Take 1 capsule by mouth 2 (two) times daily. [facility] clindamycin -benzoyl peroxide gel 2018-0 2-20 00:00: 00 Yes Apply to area(s) every morning. [facility] mg capsule 0 220 00:00: 00 Yes 100mg Take 1 capsule by mouth 2 (two) times daily. [facility] clindamycin -benzoyl peroxide gel 0 220 00:00: 00 Yes Apply to area(s) every morning. [facility] doxycycline 100 mg capsule 0 220 00:00: 00 Yes 100mg Take 1 capsule by mouth 2 (two) times daily. [facility] clindamycin -benzoyl peroxide gel 0 2-20 00:00: 00 Yes Apply to area(s) every morning. [facility] doxycycline 100 mg capsule 0 2-20 00:00: 00 Yes 100mg Take 1 capsule by mouth 2 (two) times daily. [facility] clindamycin -benzoyl peroxide gel 0 2-20 00:00: 00 Yes Apply to area(s) every morning. [facility] mg capsule 0 2-20 00:00: 00 Yes 100mg Take 1 capsule by mouth 2 (two) times daily. [facility] clindamycin -benzoyl peroxide gel 0 20 00:00: 00 Yes Apply to area(s) every morning. [facility] doxycycline 100 mg capsule 04-02 00:00: 00 Yes 100mg Take 1 capsule by mouth 2 (two) times daily. [facility] clindamycin -benzoyl peroxide gel 0 20 00:00: 00 Yes Apply to area(s) every morning. [facility] doxycycline 100 mg capsule 04-02 00:00: 00 Yes 100mg Take 1 capsule by mouth 2 (two) times daily. [facility] clindamycin -benzoyl peroxide gel 04-02 00:00: 00 Yes Apply to area(s) every morning. [facility] doxycycline 100 mg capsule 04-02 00:00: 00 Yes 100mg Take 1 capsule by mouth 2 (two) times daily. [facility] clindamycin -benzoyl peroxide gel 04-02 00:00: 00 Yes Apply to area(s) every morning. [facility] FLUoxetine 20 mg capsule 2017-02 00:00: 00 Yes [facility] FLUoxetine 20 mg capsule 2017-02 00:00: 00 Yes [facility] FLUoxetine 20 mg capsule 2017-02 00:00: 00 Yes [facility] FLUoxetine 20 mg capsule 2017-02 2 00:00: 00 Yes [facility] FLUoxetine 20 mg capsule 2017-02 2 00:00: 00 Yes [facility] FLUoxetine 20 mg capsule 2017-02 2 00:00: 00 Yes [facility] FLUoxetine 20 mg capsule 2017-02 2 00:00: 00 Yes [facility] FLUoxetine 20 mg capsule 2017-02 2 00:00: 00 Yes [facility] FLUoxetine 20 mg capsule 2017-02 2 00:00: 00 Yes [facility] FLUoxetine 20 mg capsule 2017-02 2 00:00: 00 Yes [facility] FLUoxetine 20 mg capsule 2017-02 [...] [facility] FLUoxetine 20 mg capsule 2018- 2-04 00:00: 00 Yes [facility] [place] [...] 2- 00:00: 00 Yes [facility] Immunizations Ordered Immunization Name Filled Immunization Name Date Status Comments Source SARS-COV-2 COVID-19 PFIZER ROSELIA-SUCROSE VACCINE (LEO TOP) 2021-04-29 00:00:00 Completed [facility] SARS-COV-2 COVID-19 PFIZER ROSELIA-SUCROSE VACCINE (LEO TOP) 2021-04-29 00:00:00 Completed [facility] SARS-COV-2 COVID-19 PFIZER ROSELIA-SUCROSE VACCINE (LEO TOP) 2021-04-29 00:00:00 Completed [facility] SARS-COV-2 COVID-19 PFIZER ROSELIA-SUCROSE VACCINE (LEO TOP) 2021-04-29 00:00:00 Completed [facility] SARS-COV-2 COVID-19 PFIZER ROSELIA-SUCROSE VACCINE (LEO TOP) 2021-04-29 00:00:00 Completed [facility] SARS-COV-2 COVID-19 PFIZER ROSELIA-SUCROSE VACCINE (LEO TOP) 2021-04-29 00:00:00 Completed [facility] SARS-COV-2 COVID-19 PFIZER ROSELIA-SUCROSE VACCINE (LEO TOP) 2021-04-29 00:00:00 Completed [facility] SARS-COV-2 COVID-19 PFIZER ROSELIA-SUCROSE VACCINE (LEO TOP) 2021-04-29 00:00:00 Completed [facility] SARS-COV-2 COVID-19 PFIZER ROSELIA-SUCROSE VACCINE (LEO TOP) 2021-04-29 00:00:00 Completed [facility] SARS-COV-2 COVID-19 PFIZER ROSELIA-SUCROSE VACCINE (LEO TOP) 2021-04-29 00:00:00 Completed [facility] SARS-COV-2 COVID-19 PFIZER ROSELIA-SUCROSE VACCINE (LEO TOP) 2021-04-29 00:00:00 Completed [facility] SARS-COV-2 COVID-19 PFIZER ROSELIA-SUCROSE VACCINE (LEO TOP) 2021-04-29 00:00:00 Completed [facility] SARS-COV-2 COVID-19 PFIZER ROSELIA-SUCROSE VACCINE (LEO TOP) 2021-04-29 00:00:00 Completed [facility] SARS-COV-2 COVID-19 PFIZER ROSELIA-SUCROSE VACCINE (LEO TOP) 2021-04-29 00:00:00 Completed [facility] SARS-COV-2 COVID-19 PFIZER ROSELIA-SUCROSE VACCINE (LEO TOP) 2021-04-29 00:00:00 Completed [facility] SARS-COV-2 COVID-19 PFIZER ROSELIA-SUCROSE VACCINE (LEO TOP) 2021-04-29 00:00:00 Completed [facility] SARS-COV-2 COVID-19 PFIZER ROSELIA-SUCROSE VACCINE (LEO TOP) 2021-04-29 00:00:00 Completed [facility] SARS-COV-2 COVID-19 PFIZER ROSELIA-SUCROSE VACCINE (LEO TOP) 2021-04-29 00:00:00 Completed [facility] SARS-COV-2 COVID-19 PFIZER ROSELIA-SUCROSE VACCINE (LEO TOP) 2021-04-29 00:00:00 Completed [facility] SARS-COV-2 COVID-19 PFIZER ROSELIA-SUCROSE VACCINE (LEO TOP) 2021-04-29 00:00:00 Completed [facility] SARS-COV-2 COVID-19 PFIZER ROSELIA-SUCROSE VACCINE (LEO TOP) 2021-04-29 00:00:00 Completed [facility] SARS-COV-2 COVID-19 PFIZER ROSELIA-SUCROSE VACCINE (LEO TOP) 2021-04-29 00:00:00 Completed [facility] SARS-COV-2 COVID-19 PFIZER ROSELIA-SUCROSE VACCINE (LEO TOP) 2021-04-29 00:00:00 Completed [facility] SARS-COV-2 COVID-19 PFIZER ROSELIA-SUCROSE VACCINE (LEO TOP) 2021-04-29 00:00:00 Completed [facility] SARS-COV-2 COVID-19 PFIZER ROSELIA-SUCROSE VACCINE (LEO TOP) 2021-04-29 00:00:00 Completed [facility] SARS-COV-2 COVID-19 PFIZER ROSELIA-SUCROSE VACCINE (LEO TOP) 2021-04-29 00:00:00 Completed [facility] SARS-COV-2 COVID-19 PFIZER ROSELIA-SUCROSE VACCINE (LEO TOP) 2021-04-29 00:00:00 Completed [facility] SARS-COV-2 COVID-19 PFIZER ROSELIA-SUCROSE VACCINE (LEO TOP) 2021-04-29 00:00:00 Completed [facility] SARS-COV-2 COVID-19 PFIZER ROSELIA-SUCROSE VACCINE (LEO TOP) 2021-04-29 00:00:00 Completed [facility] SARS-COV-2 COVID-19 PFIZER ROSELIA-SUCROSE VACCINE (LEO TOP) 2021-04-29 00:00:00 Completed [facility] SARS-COV-2 COVID-19 PFIZER ROSELIA-SUCROSE VACCINE (LEO TOP) 2021-04-29 00:00:00 Completed [facility] SARS-COV-2 COVID-19 PFIZER ROSELIA-SUCROSE VACCINE (LEO TOP) 2021-04-29 00:00:00 Completed [facility] SARS-COV-2 COVID-19 PFIZER ROSELIA-SUCROSE VACCINE (LEO TOP) 2021-04-29 00:00:00 Completed [facility] SARS-COV-2 COVID-19 PFIZER ROSELIA-SUCROSE VACCINE (LEO TOP) 2021-04-29 00:00:00 Completed [facility] SARS-COV-2 COVID-19 PFIZER ROSELIA-SUCROSE VACCINE (LEO TOP) 2021-04-29 00:00:00 Completed [facility] SARS-COV-2 COVID-19 PFIZER ROSELIA-SUCROSE VACCINE (LEO TOP) 2021-04-29 00:00:00 Completed [facility] SARS-COV-2 COVID-19 PFIZER ROSELIA-SUCROSE VACCINE (LEO TOP) 2021-04-29 00:00:00 Completed [facility] SARS-COV-2 COVID-19 PFIZER ROSELIA-SUCROSE VACCINE (LEO TOP) 2021-04-29 00:00:00 Completed [facility] SARS-COV-2 COVID-19 PFIZER ROSELIA-SUCROSE VACCINE (LEO TOP) 2021-04-29 00:00:00 Completed [facility] SARS-COV-2 COVID-19 PFIZER ROSELIA-SUCROSE VACCINE (LEO TOP) 2021-04-29 00:00:00 Completed [facility] SARS-COV-2 COVID-19 PFIZER ROSELIA-SUCROSE VACCINE (LEO TOP) 2021-04-29 00:00:00 Completed [facility] SARS-COV-2 COVID-19 PFIZER ROSELIA-SUCROSE VACCINE (LEO TOP) 2021-04-29 00:00:00 Completed [facility] SARS-COV-2 COVID-19 PFIZER ROSELIA-SUCROSE VACCINE (LEO TOP) 2021-04-29 00:00:00 Completed [facility] SARS-COV-2 COVID-19 PFIZER ROSELIA-SUCROSE VACCINE (LEO TOP) 2021-04-29 00:00:00 Completed [facility] SARS-COV-2 COVID-19 PFIZER ROSELIA-SUCROSE VACCINE (LEO TOP) 2021-04-29 00:00:00 Completed [facility] SARS-COV-2 COVID-19 PFIZER VACCINE 2020-05-25 00:00:00 Completed [facility] SARS-COV-2 COVID-19 PFIZER VACCINE 2020-05-25 00:00:00 Completed [facility] SARS-COV-2 COVID-19 PFIZER VACCINE 2020-05-25 00:00:00 Completed [facility] SARS-COV-2 COVID-19 PFIZER VACCINE 2020-05-25 00:00:00 Completed [facility] SARS-COV-2 COVID-19 PFIZER VACCINE 2020-05-25 00:00:00 Completed [facility] SARS-COV-2 COVID-19 PFIZER VACCINE 2020-05-25 00:00:00 Completed [facility] SARS-COV-2 COVID-19 PFIZER VACCINE 2020-05-25 00:00:00 Completed [facility] SARS-COV-2 COVID-19 PFIZER VACCINE 2020-05-25 00:00:00 Completed [facility] SARS-COV-2 COVID-19 PFIZER VACCINE 2020-05-25 00:00:00 Completed [facility] SARS-COV-2 COVID-19 PFIZER VACCINE 2020-05-25 00:00:00 Completed [facility] SARS-COV-2 COVID-19 PFIZER VACCINE 2020-05-25 00:00:00 Completed [facility] SARS-COV-2 COVID-19 PFIZER VACCINE 2020-05-25 00:00:00 Completed [facility] SARS-COV-2 COVID-19 PFIZER VACCINE 2020-05-25 00:00:00 Completed [facility] SARS-COV-2 COVID-19 PFIZER VACCINE 2020-05-25 00:00:00 Completed [facility] SARS-COV-2 COVID-19 PFIZER VACCINE 2020-05-25 00:00:00 Completed [facility] SARS-COV-2 COVID-19 PFIZER VACCINE 2020-05-25 00:00:00 Completed [facility] SARS-COV-2 COVID-19 PFIZER VACCINE 2020-05-25 00:00:00 Completed [facility] SARS-COV-2 COVID-19 PFIZER VACCINE 2020-05-25 00:00:00 Completed [facility] SARS-COV-2 COVID-19 PFIZER VACCINE 2020-05-25 00:00:00 Completed [facility] SARS-COV-2 COVID-19 PFIZER VACCINE 2020-05-25 00:00:00 Completed [facility] SARS-COV-2 COVID-19 PFIZER VACCINE 2020-05-25 00:00:00 Completed [facility] SARS-COV-2 COVID-19 PFIZER VACCINE 2020-05-25 00:00:00 Completed [facility] SARS-COV-2 COVID-19 PFIZER VACCINE 2020-05-25 00:00:00 Completed [facility] SARS-COV-2 COVID-19 PFIZER VACCINE 2020-05-25 00:00:00 Completed [facility] SARS-COV-2 COVID-19 PFIZER VACCINE 2020-05-25 00:00:00 Completed [facility] SARS-COV-2 COVID-19 PFIZER VACCINE 2020-05-25 00:00:00 Completed [facility] SARS-COV-2 COVID-19 PFIZER VACCINE 2020-05-25 00:00:00 Completed [facility] SARS-COV-2 COVID-19 PFIZER VACCINE 2020-05-25 00:00:00 Completed [facility] SARS-COV-2 COVID-19 PFIZER VACCINE 2020-05-25 00:00:00 Completed [facility] SARS-COV-2 COVID-19 PFIZER VACCINE 2020-05-25 00:00:00 Completed [facility] SARS-COV-2 COVID-19 PFIZER VACCINE 2020-05-25 00:00:00 Completed [facility] SARS-COV-2 COVID-19 PFIZER VACCINE 2020-05-25 00:00:00 Completed [facility] SARS-COV-2 COVID-19 PFIZER VACCINE 2020-05-25 00:00:00 Completed [facility] SARS-COV-2 COVID-19 PFIZER VACCINE 2020-05-25 00:00:00 Completed [facility] SARS-COV-2 COVID-19 PFIZER VACCINE 2020-05-25 00:00:00 Completed [facility] SARS-COV-2 COVID-19 PFIZER VACCINE 2020-05-25 00:00:00 Completed [facility] SARS-COV-2 COVID-19 PFIZER VACCINE 2020-05-25 00:00:00 Completed [facility] SARS-COV-2 COVID-19 PFIZER VACCINE 2020-05-25 00:00:00 Completed [facility] SARS-COV-2 COVID-19 PFIZER VACCINE 2020-05-25 00:00:00 Completed [facility] SARS-COV-2 COVID-19 PFIZER VACCINE 2020-05-25 00:00:00 Completed [facility] SARS-COV-2 COVID-19 PFIZER VACCINE 2020-05-25 00:00:00 Completed [facility] SARS-COV-2 COVID-19 PFIZER VACCINE 2020-05-25 00:00:00 Completed [facility] SARS-COV-2 COVID-19 PFIZER VACCINE 2020-05-25 00:00:00 Completed [facility] SARS-COV-2 COVID-19 PFIZER VACCINE 2020-05-25 00:00:00 Completed [facility] SARS-COV-2 COVID-19 PFIZER VACCINE 2020-05-25 00:00:00 Completed [facility] SARS-COV-2 COVID-19 PFIZER VACCINE 2020-05-04 00:00:00 Completed [facility] SARS-COV-2 COVID-19 PFIZER VACCINE 2020-05-04 00:00:00 Completed [facility] SARS-COV-2 COVID-19 PFIZER VACCINE 2020-05-04 00:00:00 Completed [facility] SARS-COV-2 COVID-19 PFIZER VACCINE 2020-05-04 00:00:00 Completed [facility] SARS-COV-2 COVID-19 PFIZER VACCINE 2020-05-04 00:00:00 Completed [facility] SARS-COV-2 COVID-19 PFIZER VACCINE 2020-05-04 00:00:00 Completed [facility] SARS-COV-2 COVID-19 PFIZER VACCINE 2020-05-04 00:00:00 Completed [facility] SARS-COV-2 COVID-19 PFIZER VACCINE 2020-05-04 00:00:00 Completed [facility] SARS-COV-2 COVID-19 PFIZER VACCINE 2020-05-04 00:00:00 Completed [facility] SARS-COV-2 COVID-19 PFIZER VACCINE 2020-05-04 00:00:00 Completed [facility] SARS-COV-2 COVID-19 PFIZER VACCINE 2020-05-04 00:00:00 Completed [facility] SARS-COV-2 COVID-19 PFIZER VACCINE 2020-05-04 00:00:00 Completed [facility] SARS-COV-2 COVID-19 PFIZER VACCINE 2020-05-04 00:00:00 Completed [facility] SARS-COV-2 COVID-19 PFIZER VACCINE 2020-05-04 00:00:00 Completed [facility] SARS-COV-2 COVID-19 PFIZER VACCINE 2020-05-04 00:00:00 Completed [facility] SARS-COV-2 COVID-19 PFIZER VACCINE 2020-05-04 00:00:00 Completed [facility] SARS-COV-2 COVID-19 PFIZER VACCINE 2020-05-04 00:00:00 Completed [facility] SARS-COV-2 COVID-19 PFIZER VACCINE 2020-05-04 00:00:00 Completed [facility] SARS-COV-2 COVID-19 PFIZER VACCINE 2020-05-04 00:00:00 Completed [facility] SARS-COV-2 COVID-19 PFIZER VACCINE 2020-05-04 00:00:00 Completed [facility] SARS-COV-2 COVID-19 PFIZER VACCINE 2020-05-04 00:00:00 Completed [facility] SARS-COV-2 COVID-19 PFIZER VACCINE 2020-05-04 00:00:00 Completed [facility] SARS-COV-2 COVID-19 PFIZER VACCINE 2020-05-04 00:00:00 Completed [facility] SARS-COV-2 COVID-19 PFIZER VACCINE 2020-05-04 00:00:00 Completed [facility] SARS-COV-2 COVID-19 PFIZER VACCINE 2020-05-04 00:00:00 Completed [facility] SARS-COV-2 COVID-19 PFIZER VACCINE 2020-05-04 00:00:00 Completed [facility] SARS-COV-2 COVID-19 PFIZER VACCINE 2020-05-04 00:00:00 Completed [facility] SARS-COV-2 COVID-19 PFIZER VACCINE 2020-05-04 00:00:00 Completed [facility] SARS-COV-2 COVID-19 PFIZER VACCINE 2020-05-04 00:00:00 Completed [facility] SARS-COV-2 COVID-19 PFIZER VACCINE 2020-05-04 00:00:00 Completed [facility] SARS-COV-2 COVID-19 PFIZER VACCINE 2020-05-04 00:00:00 Completed [facility] SARS-COV-2 COVID-19 PFIZER VACCINE 2020-05-04 00:00:00 Completed [facility] SARS-COV-2 COVID-19 PFIZER VACCINE 2020-05-04 00:00:00 Completed [facility] SARS-COV-2 COVID-19 PFIZER VACCINE 2020-05-04 00:00:00 Completed [facility] SARS-COV-2 COVID-19 PFIZER VACCINE 2020-05-04 00:00:00 Completed [facility] SARS-COV-2 COVID-19 PFIZER VACCINE 2020-05-04 00:00:00 Completed [facility] SARS-COV-2 COVID-19 PFIZER VACCINE 2020-05-04 00:00:00 Completed [facility] SARS-COV-2 COVID-19 PFIZER VACCINE 2020-05-04 00:00:00 Completed [facility] SARS-COV-2 COVID-19 PFIZER VACCINE 2020-05-04 00:00:00 Completed [facility] SARS-COV-2 COVID-19 PFIZER VACCINE 2020-05-04 00:00:00 Completed [facility] SARS-COV-2 COVID-19 PFIZER VACCINE 2020-05-04 00:00:00 Completed [facility] SARS-COV-2 COVID-19 PFIZER VACCINE 2020-05-04 00:00:00 Completed [facility] SARS-COV-2 COVID-19 PFIZER VACCINE 2020-05-04 00:00:00 Completed [facility] SARS-COV-2 COVID-19 PFIZER VACCINE 2020-05-04 00:00:00 Completed [facility] SARS-COV-2 COVID-19 PFIZER VACCINE 2020-05-04 00:00:00 Completed [facility] SARS-COV-2 COVID-19 PFIZER VACCINE Unknown Completed [facility] SARS-COV-2 COVID-19 PFIZER VACCINE Unknown Completed [facility] SARS-COV-2 COVID-19 PFIZER ROSELIA-SUCROSE VACCINE (LEO TOP) Unknown Completed [facility] SARS-COV-2 COVID-19 PFIZER VACCINE Unknown Completed [facility] SARS-COV-2 COVID-19 PFIZER VACCINE Unknown Completed [facility] SARS-COV-2 COVID-19 PFIZER ROSELIA-SUCROSE VACCINE (LEO TOP) Unknown Completed [facility] SARS-COV-2 COVID-19 PFIZER VACCINE Unknown Completed [facility] SARS-COV-2 COVID-19 PFIZER VACCINE Unknown Completed [facility] SARS-COV-2 COVID-19 PFIZER ROSELIA-SUCROSE VACCINE (LEO TOP) Unknown Completed [facility] SARS-COV-2 COVID-19 PFIZER VACCINE Unknown Completed [facility] SARS-COV-2 COVID-19 PFIZER VACCINE Unknown Completed [facility] SARS-COV-2 COVID-19 PFIZER ROSELIA-SUCROSE VACCINE (LEO TOP) Unknown Completed [facility] Vital Signs Vital Name Observation Time Observation Value Comments S ource Systolic blood pressure 2023-04-26 20:59:00 129 mm[Hg] [facility] Diastolic blood pressure 2023-04-26 20:59:00 82 mm[Hg] [facility] Heart rate 2023-04-26 20:59:00 79 /min [facility] 2023-04-26 20:59:00 37.44 Ivone [facility] Respiratory rate 2023-04-26 20:59:00 16 /min [facility] Body height 2023-04-26 20:59:00 165.1 cm [facility] Body weight 2023-04-26 20:59:00 83.915 kg [facility] BMI 2023-04-26 20:59:00 30.79 kg/m2 [facility] Oxygen saturation in Arterial blood by Pulse oximetry 2023-04-26 20:59:00 99 /min [facility] Systolic blood pressure 2023-04-01 16:05:00 140 mm[Hg] [facility] Diastolic blood pressure 2023-04-01 16:05:00 93 mm[Hg] [facility] Heart rate 2023-04-01 16:04:00 78 /min [facility] Body temperature 2023-04-01 16:04:00 36.22 Ivone [facility] Respiratory rate 2023-04-01 16:04:00 18 /min [facility] Body height 2023-04-01 16:04:00 165.1 cm [facility] Body weight 2023-04-01 16:04:00 86.41 kg [facility] BMI 2023-04-01 16:04:00 31.70 kg/m2 [facility] Oxygen saturation in Arterial blood by Pulse oximetry 2023-04-01 16:04:00 100 /min [facility] Body height 2022-10-18 18:55:00 165.1 cm [facility] Body weight 2022-10-18 18:55:00 80.015 kg [facility] BMI 2022-10-18 18:55:00 29.35 kg/m2 [facility] Systolic blood pressure 2022-09-30 22:20:00 123 mm[Hg] [facility] Diastolic blood pressure 2022-09-30 22:20:00 86 mm[Hg] [facility] Heart rate 2022-09-30 22:20:00 95 /min [facility] Body temperature 2022-09-30 22:20:00 36.94 Ivone [facility] Respiratory rate 2022-09-30 22:20:00 18 /min [facility] Body height 2022-09-30 22:20:00 165.1 cm [facility] Body weight 2022-09-30 22:20:00 77.168 kg [facility] BMI 2022-09-30 22:20:00 28.31 kg/m2 [facility] Oxygen saturation in Arterial blood by Pulse oximetry 2022-09-30 22:20:00 97 /min [facility] Systolic blood pressure 2022-09-25 21:13:00 118 mm[Hg] [facility] Diastolic blood pressure 2022-09-25 21:13:00 73 mm[Hg] [facility] Heart rate 2022-09-25 21:13:00 80 /min [facility] Body temperature 2022-09-25 21:13:00 37 Ivone [facility] Body height 2022-09-25 21:13:00 [facility] 2022-09-25 21:13:00 79.379 kg [facility] BMI 2022-09-25 21:13:00 29.12 kg/m2 [facility] Oxygen saturation in Arterial blood by Pulse oximetry 2022-09-25 21:13:00 98 /min [facility] Systolic blood pressure 2022-09-17 19:01:00 124 mm[Hg] [facility] Diastolic blood pressure 2022-09-17 19:01:00 83 mm[Hg] [facility] Heart rate 2022-09-17 19:01:00 97 /min [facility] Body temperature 2022-09-17 19:01:00 37.17 Ivone [facility] Respiratory rate 2022-09-17 19:01:00 18 /min [facility] Body height 2022-09-17 19:01:00 165.1 cm [facility] Body weight 2022-09-17 19:01:00 77.656 kg [facility] BMI 2022-09-17 19:01:00 28.49 kg/m2 [facility] Oxygen saturation in Arterial blood by Pulse oximetry 2022-09-17 19:01:00 98 /min [facility] Systolic blood pressure 2022-09-11 17:48:00 113 mm[Hg] [facility] Diastolic blood pressure 2022-09-11 17:48:00 75 mm[Hg] [facility] Heart rate 2022-09-11 17:48:00 97 /min [facility] Body temperature 2022-09-11 17:48:00 37 Ivone [facility] Body height 2022-09-11 17:48:00 [facility] 2022-09-11 17:48:00 77.973 kg [facility] BMI 2022-09-11 17:48:00 28.61 kg/m2 [facility] Oxygen saturation in Arterial blood by Pulse oximetry 2022-09-11 17:48:00 98 /min [facility] Systolic blood pressure 2022-09-04 20:00:00 122 mm[Hg] [facility] Diastolic blood pressure 2022-09-04 20:00:00 72 mm[Hg] [facility] Heart rate 2022-09-04 20:00:00 87 /min [facility] Oxygen saturation in Arterial blood by Pulse oximetry 2022-09-04 20:00:00 100 /min [facility] Respiratory rate 2022-09-04 19:00:00 18 /min [facility] Body temperature 2022-09-04 17:32:00 37.22 Ivone [facility] Body weight 2022-09-04 17:32:00 80.74 kg [facility] Systolic blood pressure 2022-08-19 19:14:00 131 mm[Hg] [facility] Diastolic blood pressure 2022-08-19 19:14:00 85 mm[Hg] [facility] Heart rate 2022-08-19 19:14:00 93 /min [facility] Body temperature 2022-08-19 19:14:00 36.94 Ivone [facility] Respiratory rate 2022-08-19 19:14:00 17 /min [facility] Body height 2022-08-19 19:14:00 165.1 cm [facility] Body weight 2022-08-19 19:14:00 80.825 kg [facility] BMI 2022-08-19 19:14:00 29.65 kg/m2 [facility] Oxygen saturation in Arterial blood by Pulse oximetry 2022-08-19 19:14:00 97 /min [facility] Systolic blood pressure 2022-07-20 16:02:00 115 mm[Hg] [facility] Diastolic blood pressure 2022-07-20 16:02:00 85 mm[Hg] [facility] Heart rate 2022-07-20 16:02:00 89 /min [facility] Body temperature 2022-07-20 16:02:00 36.94 Ivone [facility] Respiratory rate 2022-07-20 16:02:00 16 /min [facility] Body weight 2022-07-20 16:02:00 83.416 kg [facility] Oxygen saturation in Arterial blood by Pulse oximetry 2022-07-20 16:02:00 97 /min [facility] Systolic blood pressure 2022-07-11 16:03:00 130 mm[Hg] [facility] Diastolic blood pressure 2022-07-11 16:03:00 79 mm[Hg] [facility] Heart rate 2022-07-11 16:00:00 95 /min [facility] Body temperature 2022-07-11 16:00:00 36.83 Ivone [facility] Respiratory rate 2022-07-11 16:00:00 17 /min [facility] Body height 2022-07-11 16:00:00 165.1 cm [facility] Body weight 2022-07-11 16:00:00 81.965 kg [facility] BMI 2022-07-11 16:00:00 30.07 kg/m2 [facility] Oxygen saturation in Arterial blood by Pulse oximetry 2022-07-11 16:00:00 96 /min [facility] Systolic blood pressure 2022-06-02 17:13:00 113 mm[Hg] [facility] Diastolic blood pressure 2022-06-02 17:13:00 77 mm[Hg] [facility] Heart rate 2022-06-02 17:13:00 72 /min [facility] Body temperature 2022-06-02 17:13:00 36.28 Ivone [facility] Respiratory rate 2022-06-02 17:13:00 18 /min [facility] Body height 2022-06-02 17:13:00 [facility] 2022-06-02 17:13:00 84.868 kg [facility] BMI 2022-06-02 17:13:00 30.20 kg[facility]m2 [facility] Oxygen saturation in Arterial blood by Pulse oximetry 2022-06-02 17:13:00 98 /min [facility] Body height 2022-06-01 14:02:00 [facility] weight 2022-06-01 14:02:00 85.004 kg [facility] BMI 2022-06-01 14:02:00 31.18 kg/m2 [facility] Systolic blood pressure 2022-05-10 20:12:00 134 mm[Hg] [facility] Diastolic blood pressure 2022-05-10 20:12:00 82 mm[Hg] [facility] Heart rate 2022-05-10 20:10:00 108 /min [facility] Body temperature 2022-05-10 20:10:00 36.89 Ivone [facility] Respiratory rate 2022-05-10 20:10:00 16 /min [facility] Body height 2022-05-10 20:10:00 165.1 cm [facility] Body weight 2022-05-10 20:10:00 85.548 kg [facility] BMI 2022-05-10 20:10:00 31.38 kg/m2 [facility] Oxygen saturation in Arterial blood by Pulse oximetry 2022-05-10 20:10:00 99 /min [facility] Systolic blood pressure 2022-05-04 00:58:00 148 mm[Hg] [facility] Diastolic blood pressure 2022-05-04 00:58:00 80 mm[Hg] [facility] Heart rate 2022-05-04 00:58:00 98 /min [facility] Body temperature 2022-05-04 00:58:00 37.28 Ivone [facility] Respiratory rate 2022-05-04 00:58:00 24 /min [facility] Body height 2022-05-04 00:58:00 165.1 cm [facility] Body weight 2022-05-04 00:58:00 85.049 kg [facility] BMI 2022-05-04 00:58:00 31.20 kg/m2 [facility] Oxygen saturation in Arterial blood by Pulse oximetry 2022-05-04 00:58:00 99 /min [facility] Systolic blood pressure 2022-04-26 14:51:00 139 mm[Hg] [facility] Diastolic blood pressure 2022-04-26 14:51:00 88 mm[Hg] [facility] Heart rate 2022-04-26 14:50:00 112 /min [facility] Body temperature 2022-04-26 14:50:00 38.11 Ivone [facility] Respiratory rate 2022-04-26 14:50:00 16 /min [facility] Body height 2022-04-26 14:50:00 165.1 cm [facility] Body weight 2022-04-26 14:50:00 86.501 [facility] BMI 2022-04-26 14:50:00 31.73 kg/m2 [facility] Oxygen saturation in Arterial blood by Pulse oximetry 2022-04-26 14:50:00 96 /min [facility] Systolic blood pressure 2022-04-12 19:10:00 129 mm[Hg] [facility] Diastolic blood pressure 2022-04-12 19:10:00 84 mm[Hg] [facility] Heart rate 2022-04-12 19:10:00 90 /min [facility] Body temperature 2022-04-12 19:10:00 37.06 Ivone [facility] Respiratory rate 2022-04-12 19:10:00 18 /min [facility] Body height 2022-04-12 19:10:00 165.1 cm [facility] Body weight 2022-04-12 19:10:00 85.503 kg [facility] BMI 2022-04-12 19:10:00 31.37 kg/m2 [facility] Oxygen saturation in Arterial blood by Pulse oximetry 2022-04-12 19:10:00 99 /min [facility] Systolic blood pressure 2021-12-18 16:02:00 127 mm[Hg] [facility] Diastolic blood pressure 2021-12-18 16:02:00 85 mm[Hg] [facility] Heart rate 2021-12-18 16:02:00 82 /min [facility] Body temperature 2021-12-18 16:02:00 36.44 Ivone [facility] Respiratory rate 2021-12-18 16:02:00 18 /min [facility] Body height 2021-12-18 16:02:00 165.2 cm [facility] Body weight 2021-12-18 16:02:00 83.008 kg [facility] BMI 2021-12-18 16:02:00 30.43 kg/m2 [facility] Oxygen saturation in Arterial blood by Pulse oximetry 2021-12-18 16:02:00 98 /min [facility] Systolic blood pressure 2021-12-14 14:35:00 123 mm[Hg] [facility] Diastolic blood pressure 2021-12-14 14:35:00 69 mm[Hg] [facility] Heart rate 2021-12-14 14:35:00 109 /min [facility] Body temperature 2021-12-14 14:35:00 37 Ivone [facility] Respiratory rate 2021-12-14 14:35:00 16 /min [facility] Body weight 2021-12-14 14:35:00 83.371 kg [facility] Oxygen saturation in Arterial blood by Pulse oximetry 2021-12-14 14:35:00 98 /min [facility] Systolic blood pressure 2021-09-17 17:33:00 119 mm[Hg] [facility] Diastolic blood pressure 2021-09-17 17:33:00 84 mm[Hg] [facility] Heart rate 2021-09-17 17:33:00 96 /min [facility] Body temperature 2021-09-17 17:33:00 37.11 Ivone [facility] Respiratory rate 2021-09-17 17:33:00 16 /min [facility] Body height 2021-09-17 17:33:00 165.1 cm [facility] Body weight 2021-09-17 17:33:00 83.008 kg [facility] BMI 2021-09-17 17:33:00 30.45 kg/m2 [facility] Oxygen saturation in Arterial blood by Pulse oximetry 2021-09-17 17:33:00 98 /min [facility] Systolic blood pressure 2021-09-07 17:21:00 129 mm[Hg] [facility] Diastolic blood pressure 2021-09-07 17:21:00 83 mm[Hg] [facility] Heart rate 2021-09-07 17:21:00 72 /min [facility] Body temperature 2021-09-07 17:21:00 36.89 Ivone [facility] Respiratory rate 2021-09-07 17:21:00 20 /min [facility] Body height 2021-09-07 17:21:00 165.1 cm [facility] Body weight 2021-09-07 17:21:00 81.874 kg [facility] BMI 2021-09-07 17:21:00 30.04 kg/m2 [facility] Oxygen saturation in Arterial blood by Pulse oximetry 2021-09-07 17:21:00 98 /min [facility] Systolic blood pressure 2021-08-23 14:52:00 127 mm[Hg] [facility] Diastolic blood pressure 2021-08-23 14:52:00 80 mm[Hg] [facility] Heart rate 2021-08-23 14:52:00 93 /min [facility] Body temperature 2021-08-23 14:52:00 38.17 Ivone [facility] Respiratory rate 2021-08-23 14:52:00 17 /min [facility] Body height 2021-08-23 14:52:00 165.1 cm [facility] Body weight 2021-08-23 14:52:00 81.647 kg [facility] BMI 2021-08-23 14:52:00 29.95 kg/m2 [facility] Oxygen saturation in Arterial blood by Pulse oximetry 2021-08-23 14:52:00 100 /min [facility] Procedures Procedure Date / Time Performed Performing Clinician Source POCT SARS-COV-2 ANTIGEN (BINAX NOW) 2023-04-01 00:00:00 Nora Barrera [facility] COMP. METABOLIC PANEL (72015) 2022-09-04 18:47:00 Elda Downs [facility] CBC WITH DIFF 2022-09-04 18:47:00 Elda Downs [facility] COVID-19 (ID NOW RAPID TESTING) 2022-09-04 18:47:00 Elda Downs [facility] CONSENT/REFUSAL FOR DIAGNOSIS AND TREATMENT 2022-09-04 17:29:28 Doctor Unassigned, [place] [facility] THROAT CULTURE 2022-08-19 19:57:00 Monroe Alvarado [facility] GC & CHLAMYDIA AMPLIFIED ASSAY 2022-08-19 19:57:00 Christiano [facility] POCT MOLECULAR FLU 2022-08-19 19:36:00 Unknown, Attend ing [facility] POCT SARS-COV-2 ANTIGEN (BINAX NOW) 2022-08-19 19:33:00 Christiano [facility] POCT MOLECULAR STREP 2022-08-19 19:16:00 Unknown, Attsuhail cisse [facility] POCT MOLECULAR STREP 2022-06-02 17:25:00 Unknown, Attsuhail cisse [facility] XR CHEST 2 VW 2022-05-04 01:26:00 Tracy Babin [facility] RAPID STREP SCREEN FOR GROUP A 2022-05-04 01:21:00 Tracy Babin [facility] CONSENT/REFUSAL FOR DIAGNOSIS AND TREATMENT 2022-05-04 00:54:30 Doctor Unassigned, [place] [facility] POCT SARS-COV-2 ANTIGEN (BINAX NOW) 2022-04-26 15:04:00 Sathya Vasquez [facility] POCT MOLECULAR FLU 2022-04-26 14:58:00 Unknown, Attend [facility] POCT MOLECULAR STREP 2022-04-26 14:56:00 [facility] 2022-04-12 19:25:00 Unknown, Atte [facility] ASSIGNMENT OF BENEFITS 2022-04-12 19:01:07 Docto r Unassigned, [place] [facility] POCT MOLECULAR STREP 2021-12-18 16:01:00 Unknown, Attsuhail [facility] POCT MOLECULAR FLU 2021-12-14 14:42:00 Unknown, Attend [facility] POCT MOLECULAR STREP 2021-09-17 17:37:00 Stevie Gregg [facility] COVID-19 (MOLECULAR TESTING NUCLEIC ACID AMPLIFICATION) 2021-09-17 17:35:00 [facility] LAB ONLY COVID INTERPRETATION 2021-09-17 17:35:00 [facility] POCT MOLECULAR STREP 2021-08-23 14:59:00 Nora Barrera [facility] Encounters Start Date/Time End Date/Time Encounter Type Admission Type Attending [facility] Care Facility Care Department Encounter ID Source 2023-04-26 15:45:00 2023-04-26 16:07:28 Outpatient R NORA BARRERA [facility] [id number] [facility] 2023-04-26 15:45:00 2023-04-26 16:07:28 Nurse Visit Nurse, Nickolas [facility] Unknown, Attending Nora Barrera [facility] 1.2.840.114 350.1.13.10 4.2.7.2.686 [id number] 370 [id number] [facility] 2023-04-03 08:00:00 2023-04-03 08:00:00 Outpatient GISSEL MOHAMUD [facility] [id number] [facility] 2023-04-01 09:40:00 2023-04-01 10:37:09 Outpatient R CAMPBELL ZIMMERMAN [facility] [id number] [facility] 2023-04-01 09:40:00 2023-04-01 10:00:00 Urgent Care Shanita Zimmermanshereenluiza Unknown, Attending [facility] 1..840.114 350.1.13.10 4.2.7.2.686 [id number] [facility] 2023-04-01 00:00:00 2023-04-01 00:00:00 Letter (Out) Campbell Zimmerman [facility] 1.2.840.114 350.1.13.10 4.2.7.2.686 [id number] [facility] 2023-01-21 14:15:00 2023-01-21 14:15:00 Outpatient R OVI STILES [facility] [id number] [facility] 2023-01-18 16:00:00 2023-01-18 16:00:00 Outpatient R [facility] [id number] [facility] 2022-12-26 15:30:00 2022-12-26 15:30:00 Outpatient R ROBERT GUERIN [facility] [id number] [facility] 2022-10-18 14:15:00 2022-10-18 14:30:00 Office Visit Ovi Stiles [facility] 1..840.114 350.1.13.10 4.2.7.2.686 [id number] [facility] 2022-10-18 14:15:00 2022-10-18 14:15:00 Outpatient R OVI STILES [facility] [id number] [facility] 2022-09-30 17:00:00 2022-09-30 18:35:20 Outpatient R MONROE ALVARADO [facility] [id number] [facility] 2022-09-30 17:00:00 2022-09-30 18:35:20 Urgent Care Monroe Alvarado Unknown, Attending [facility] 1..840.114 350.1.13.10 4.2.7.2.686 [id number] [facility] 2022-09-25 16:00:00 2022-09-25 16:34:10 Outpatient R INOCENCIODanny ROBERT [facility] [id number] [facility] 2022-09-25 16:00:00 2022-09-25 16:34:10 Office Visit Truong Robert [facility] 1.840.114 350.1.13.10 4.2.7.2.686 [id number] [facility] 2022-09-17 14:00:00 2022-09-17 14:31:03 Outpatient R ZIMMERMANSHANITA STEWARDLISE [facility] [id number] [facility] 2022-09-17 14:00:00 2022-09-17 14:20:00 Urgent Care Campbell Zimmerman Unknown, [facility] 1..840.114 350.1.13.10 4.2.7.2.686 [id number] 370 [id number] [facility] 2022-09-17 00:00:00 2022-09-17 00:00:00 Letter (Out) ZimmermanShanita stewardlise [facility] 1..840.114 350.1.13.10 4.2.7.2.686 [id number] [facility] 2022-09-11 13:37:28 2022-09-11 23:59:00 Outpatient R ROBERT GUERIN [facility] [id number] [facility] 2022-09-11 13:37:28 2022-09-11 23:59:00 Hospital Encounter Robert Guerin [facility] 1.2.840.114 350.1.13.10 4.2.7.2.686 [id number] [facility] 2022-09-11 13:30:00 2022-09-11 13:45:00 Trains Service Conductor Visit Lab, Ang - Db Truong [facility] [place] 1.2840.114 350.1.13.10 4.2.7.2.686 [id number] [facility] 2022-09-11 13:00:00 2022-09-11 13:30:00 Office Visit Robert Guerin [facility] 1.2840.114 350.1.13.10 4.2.7.2.686 [id number] [facility] 2022-09-11 00:00:00 2022-09-11 00:00:00 Letter (Out) Robert Guerin [facility] 1.2.840.114 350.1.13.10 4.2.7.2.686 [id number] [facility] 2022-09-04 12:33:00 2022-09-04 15:08:00 Emergency X ELDA DOWNS [facility] ERT [id number] [facility] 2022-09-04 12:33:00 2022-09-04 15:08:[address] [facility] 1.2.840.114 350.1.13.10 4.2.7.2.686 [id number] [facility] 2022-08-23 00:00:00 2022-08-23 00:00:00 Telephone Monroe Alvarado [facility] 1.2.840.114 350.1.13.10 4.2.7.2.686 [id number] [facility] 2022-08-19 14:00:00 2022-08-19 15:03:11 Outpatient R MONROE ALVARADO [facility] [id number] [facility] 2022-08-19 14:00:00 2022-08-19 15:03:11 Urgent Care Monroe Alvarado Unknown, Attending [facility] 1.2840.114 350.1.13.10 4.2.7.2.686 [id number] [facility] 2022-07-20 10:40:00 2022-07-20 11:00:00 Urgent Care Sathya Vasquez Unknown, Attending [facility] 1.2840.114 350.1.13.10 4.2.7.2.686 [id number] [facility] 2022-07-20 10:40:00 2022-07-20 10:40:00 Outpatient R SATHYA VASQUEZ [facility] [id number] [facility] 2022-07-20 00:00:00 2022-07-20 00:00:00 Letter (Out) Sathya Vasquez [facility] 1.2.840.114 350.1.13.10 4.2.7.2.686 [id number] [facility] 2022-07-12 00:00:00 2022-07-12 00:00:00 Letter (Out) Prerna Cami [facility] 1.284.114 350.1.13.10 4.2.7.2.686 [id number] [facility] 2022-07-11 10:40:00 2022-07-11 11:16:25 Outpatient R NORA BARRERA [facility] [id number] [facility] 2022-07-11 10:40:00 2022-07-11 11:16:25 Urgent Care Nora Barrera Unknown, Attending [facility] 1..840.114 350.1.13.10 4.2.7.2.686 [id number] [facility] 2022-07-11 00:00:00 2022-07-11 00:00:00 Letter (Out) [facility] 1..840.114 350.1.13.10 4.2.7.2.686 [id number] [facility] 2022-06-29 11:15:00 2022-06-29 11:15:00 Outpatient R DON CORTEZ [facility] [id number] [facility] 2022-06-02 12:00:00 2022-06-02 12:53:47 Outpatient R PEDRO GABRIELAGABINO [facility] [id number] [facility] 2022-06-02 12:00:00 2022-06-02 12:20:00 Urgent Care BobbySathya vargas Unknown, Attending [facility] 1..840.114 350.1.13.10 4.2.7.2.686 [id number] [facility] 2022-06-01 09:30:00 2022-06-01 09:39:26 Outpatient R SHARMIN DON [facility] [id number] [facility] 2022-06-01 09:30:00 2022-06-01 09:39:26 Office Visit Don Cortez [employer] [facility]. 1..840.114 350.1.13.10 4.2.7.2.686 [id number] [facility] 2022-05-10 14:45:00 2022-05-10 15:05:00 Urgent Care EbSathya keys Unknown, Attending [facility]?FAND[facility] 1..840.114 350.1.13.10 4.2.7.2.686 [id number] [facility] 2022-05-10 14:45:00 2022-05-10 14:45:00 Outpatient R SHERIESATHYA KEYS [facility] [id number] [facility] 2022-05-10 00:00:00 2022-05-10 00:00:00 Letter (Out) PedroGabrielagabino [facility] 1..840.114 350.1.13.10 4.2.7.2.686 [id number] [facility] 2022-05-03 20:02:00 2022-05-03 21:35:00 Emergency X TRACY BABIN [facility] ERT [id number] [facility] 2022-05-03 20:02:00 2022-05-03 21:35:[address] [facility] 1..840.114 350.1.13.10 4.2.7.2.686 [id number] [facility] 2022-04-30 00:00:00 2022-04-30 00:00:00 Letter (Out) SherieGabriela keysgabino [facility] 1..840.114 350.1.13.10 4.2.7.2.686 [id number] [facility] 2022-04-26 09:40:00 2022-04-26 10:00:00 Urgent Care Ebludmila, Sathya Unknown, Attending [facility] 1.2.840.114 350.1.13.10 4.2.7.2.686 [id number] [facility] 2022-04-26 09:40:00 2022-04-26 09:40:00 Outpatient SATHYA REYNOLDS [facility] [id number] [facility] 2022-04-12 12:40:00 2022-04-12 13:00:00 Urgent Care BobbySathya vargas Unknown, Attending [facility] 1.2.840.114 350.1.13.10 4.2.7.2.686 [id number] [facility] 2022-04-12 12:40:00 2022-04-12 12:40:00 Outpatient SATHYA REYNOLDS [facility] [id number] [facility] 2022-04-12 00:00:00 2022-04-12 00:00:00 Orders Only Doctor Unassigned, [place] [facility] 1..840.114 350.1.13.10 4.2.7.2.686 [id number] [facility] 2022-04-12 00:00:00 2022-04-12 00:00:00 Letter (Out) Sathya Vasquez [facility] 1.2.840.114 350.1.13.10 4.2.7.2.686 [id number] [facility] 2022-01-16 15:15:00 2022-01-16 15:15:00 Outpatient MARIMAR HUIZAR [facility] [id number] [facility] 2021-12-18 09:20:00 2021-12-18 10:35:00 Outpatient NORA BARONE [facility] [id number] [facility] 2021-12-18 09:20:00 2021-12-18 10:35:00 Urgent Care Bruce Nora Unknown, Attending [facility] 1.284.114 350.1.13.10 4.2.7.2.686 [id number] [facility] 2021-12-18 00:00:00 2021-12-18 00:00:00 Letter (Out) [facility] 1.284.114 350.1.13.10 4.2.7.2.686 [id number] [facility] 2021-12-14 09:20:00 2021-12-14 10:05:42 Outpatient MITALI GARCIA [facility] [id number] [facility] 2021-12-14 09:20:00 2021-12-14 09:40:00 Urgent Care Mitali Phillips, Attending [facility] 1.284.114 350.1.13.10 4.2.7.2.686 [id number] [facility] 2021-12-14 00:00:00 2021-12-14 00:00:00 Letter (Out) Nickolas Marshall [facility] 1.84.114 350.1.13.10 4.2.7.2.686 [id number] [facility] 2021-09-18 00:00:00 2021-09-18 00:00:00 Letter (Out) Devorah Zacarias [facility] 1.284.114 350.1.13.10 4.2.7.2.686 [id number] [facility] 2021-09-17 12:20:00 2021-09-17 13:28:37 Outpatient STEVIE OLGUIN [facility] [id number] [facility] 2021-09-17 12:20:00 2021-09-17 13:28:37 Urgent Care Shivani Jasmine John [facility] 1..840.114 350.1.13.10 4.2.7.2.686 [id number] 370 [id number] [facility] 2021-09-07 12:00:00 2021-09-07 12:20:00 Urgent Care Mitali Phillips [facility] 1..840.114 350.1.13.10 4.2.7.2.686 [id number] [facility] 2021-09-07 12:00:00 2021-09-07 12:00:00 Outpatient R MITALI PHILLIPS [facility] [id number] [facility] 2021-08-23 09:40:00 2021-08-23 10:09:29 Outpatient R BRUCE [facility] [id number] [facility] 2021-08-23 09:40:00 2021-08-23 10:09:29 [facility] 1..840.114 350.1.13.10 4.2.7.2.686 [id number] [facility] 2021-08-23 09:40:00 2021-08-23 10:09:29 Outpatient R BRUCE [facility] [id number] [facility] 2021-05-14 16:00:00 2021-05-14 16:04:22 Outpatient R CHRISTIANO MONROE [facility] [id number] [facility] 2021-05-14 16:00:00 2021-05-14 16:04:22 Urgent Care Christiano Monroe [facility] 1..840.114 350.1.13.10 4.2.7.2.686 [id number] [facility] 2021-04-29 09:00:00 2021-04-29 09:14:21 Out[facility] [id number] [facility] 2021-04-29 00:00:00 2021-04-29 00:00:00 Orders Only Doctor Unassigned, [place] [facility] 1.840.114 350.1.13.10 4.2.7.2.686 [id number] [facility] 2021-02-26 22:03:00 2021-02-26 22:10:00 Emergency X PEDRO [facility] ERT [id number] [facility] 2021-02-26 22:03:00 2021-02-26 22:10:[address] [facility] 1.840.114 350.1.13.10 4.2.7.2.686 [id number] [facility] 2021-02-20 12:45:00 2021-02-20 13:00:00 Laboratory Only Only, Ang Db Test Thanh [facility] 1..840.114 350.1.13.10 4.2.7.2.686 [id number] [facility] 2021-02-20 12:45:00 2021-02-20 12:45:00 Outpatient R THANH FARRUKH [facility] [id number] [facility] 2021-02-20 00:00:00 2021-02-20 00:00:00 Orders Only Doctor Unassigned, [place] [facility] 1.2840.114 350.1.13.10 4.2.7.2.686 [id number] [facility] 2021-02-17 00:00:00 2021-02-17 00:00:00 Letter (Out) Devorah Zacarias [facility] 1.114 350.1.13.10 4.2.7.2.686 [id number] [facility] 2021-02-15 16:15:00 2021-02-15 16:30:00 Laboratory Only Only, Ang Db Test Christiano [facility] 1.114 350.1.13.10 4.2.7.2.686 [id number] [facility] 2021-02-15 16:15:00 2021-02-15 16:15:00 Outpatient Sharon ALVARADO [facility] [id number] [facility] 2020-05-25 16:00:00 2020-05-25 16:07:24 Outpatient R [facility] [id number] [facility] 2020-05-25 16:00:00 2020-05-25 16:00:00 Outpatient R [facility] [id number] [facility] 2020-05-04 16:10:00 2020-05-04 15:56:54 Outpatient Sharon SWAIN [facility] [id number] [facility] 2020-03-19 00:00:00 2020-03-19 00:00:00 Letter (Out) Chin Walton [facility] 1.114 350.1.13.10 4.2.7.2.686 [id number] [facility] 2020-03-18 17:12:54 2020-03-18 17:32:54 Laboratory Only Lab, Adc Fam Mitali Moore [facility] Prof[facility] 1.114 350.1.13.10 4.2.7.2.686 [id number] [facility] 2020-03-18 17:20:00 2020-03-18 17:20:00 Outpatient R [facility] [id number] [facility] 2020-03-18 17:20:00 2020-03-18 17:20:00 Outpatient R [facility] [id number] [facility] 2020-03-13 00:00:00 2020-03-13 00:00:00 Letter (Out) Chin Walton [facility] 1..114 350.1.13.10 4.2.7.2.686 [id number] [facility] 2020-03-11 15:40:00 2020-03-11 15:40:00 [facility] [id number] [facility] 2020-03-11 15:06:51 2020-03-11 15:26:51 Laboratory Only Lab, [facility] Building One 1.114 350.1.13.10 4.2.7.2.686 [id number] [facility] 2020-02-15 00:00:00 2020-02-15 00:00:00 Letter (Out) Devorah Zacarias [facility] 1.114 350.1.13.10 4.2.7.2.686 [id number] [facility] 2020-02-15 00:00:00 2020-02-15 00:00:00 Patient Secure Msg Doctor Unassigned, [place] [facility] 1.114 350.1.13.10 4.2.7.2.686 [id number] [facility] 2020-02-14 15:41:47 2020-02-14 15:56:47 Nurse Visit Nurse, [facility] Unknown, Attending [facility] 1.114 350.1.13.10 4.2.7.2.686 [id number] [facility] 2020-02-14 15:45:00 2020-02-14 15:45:00 Outpatient R UNKNOWN, ATTENDING [facility] [id number] [facility] 2019-05-13 13:40:00 2019-05-13 13:40:00 Outpatient R TACHO CAIN [facility] [id number] [facility] 2019-05-11 00:00:00 2019-05-11 00:00:00 Telephone Lolly Michelle [facility] 1.2840.114 350.1.13.10 4.2.7.2.686 [id number] [facility] 2019-05-11 00:00:00 2019-05-11 00:00:00 Telephone Lolly Michelle [facility] 1.2840.114 350.1.13.10 4.2.7.2.686 [id number] 2019-05-06 00:00:00 2019-05-06 00:00:00 Orders Only Doctor Unassigned, [place] [facility] 1.2840.114 350.1.13.10 4.2.7.2.686 [id number] [facility] 2019-05-06 00:00:00 2019-05-06 00:00:00 Orders Only Doctor Unassigned, [place] [facility] 1.2840.114 350.1.13.10 4.2.7.2.686 [id number] [id number] 2019-05-04 14:51:49 2019-05-04 16:20:27 Ancillary Visit Lolly Michelle Craig [facility] 1.2840.114 350.1.13.10 4.2.7.2.686 [id number] [facility] 2019-05-04 14:51:49 2019-05-04 16:20:27 Ancillary Visit MichelleNathan montanolanden [facility]ast[facility] 1.2.840.114 350.1.13.10 4.2.7.2.686 [id number] 2019-04-23 14:16:23 2019-04-23 16:08:45 Ancillary Visit Lolly [facility] 1.2.840.114 350.1.13.10 4.2.7.2.686 [id number] [facility] 2019-04-23 14:16:23 2019-04-23 16:08:45 Ancillary Visit Michelle, Lolly Anastasiya [facility] nal Building 1.2.840.114 350.1.13.10 4.2.7.2.686 [id number] 2019-04-22 14:24:40 2019-04-22 15:14:05 Ancillary Visit Guerline Navarrete Craig L [facility] Building 1.2.840.114 350.1.13.10 4.2.7.2.686 [id number] [facility] 2019-04-22 14:24:40 2019-04-22 15:14:05 Ancillary Visit Guerline Navarrete [facility] Building 1.2.840.114 350.1.13.10 4.2.7.2.686 [id number] 2019-04-16 15:20:00 2019-04-16 15:20:00 Outpatient R TACHO CAIN [facility] [id number] [facility] 2019-04-14 16:16:46 2019-04-14 16:56:46 Ancillary Visit Lolly Michelle Craig L [facility] nal Building 1.2.840.114 350.1.13.10 4.2.7.2.686 [id number] [facility] 2019-04-14 16:16:46 2019-04-14 16:56:46 Ancillary Visit Miguel Angel Lolly Anastasiya [facility] Building 1.2840.114 350.1.13.10 4.2.7.2.686 [id number] 2019-04-09 16:19:26 2019-04-09 17:01:53 Ancillary Visit Guerline Navarrete Craig L [facility] Building 1.2840.114 350.1.13.10 4.2.7.2.686 [id number] [facility] 2019-04-09 16:19:26 2019-04-09 17:01:53 Ancillary Visit Guerline Navarrete [facility] Building 1.20.114 350.1.13.10 4.2.7.2.686 [id number] 2019-04-09 16:20:00 2019-04-09 16:20:00 Outpatient R TACHO CAIN [facility] [id number] [facility] 2019-03-31 08:04:37 2019-03-31 15:11:26 Ancillary Visit Lolly Michelle Craig L [facility] Building 1.20.114 350.1.13.10 4.2.7.2.686 [id number] [facility] 2019-03-31 08:04:37 2019-03-31 15:11:26 Ancillary Visit Lolly Michelle [facility] Building 1.2840.114 350.1.13.10 4.2.7.2.686 [id number] 2019-03-31 00:00:00 2019-03-31 00:00:00 Orders Only Doctor Unassigned, [place] [facility] 1.2840.114 350.1.13.10 4.2.7.2.686 [id number] 2019-03-31 00:00:00 2019-03-31 00:00:00 Orders Only Doctor Unassigned, [place] [facility] 1.2.840.114 350.1.13.10 4.2.7.2.686 [id number] [facility] 2018-08-28 00:00:00 2018-08-28 00:00:00 Orders Only Doctor Unassigned, [place] [facility] 1.2.840.114 350.1.13.10 4.2.7.2.686 [id number] 2018-08-28 00:00:00 2018-08-28 00:00:00 Orders Only Doctor Unassigned, [place] [facility] 1.2.840.114 350.1.13.10 4.2.7.2.686 [id number] [facility] Results Test Description Test Time Test Comments Results Result Co [facility] (92431)2022-09-04 19:19:31* Test Item Value Reference Range Interpretation Comme nts NA (test code = 0315078921) 139 mmol/L 135-145 K (test code = 1540726100) 3.3 mmol/L 3.5-5.0 L CL (test code = 0232476436) 99 mmol/L 98-108 CO2 TOTAL (test code = 9958522433) 28 mmol/L 23-31 AGAP (test code = 2002909862) 12 2-16 BUN (test code = 2165024492) 8 mg/dL 7-23 GLUCOSE (test code = 6350525374) 92 mg/dL 70-110 CREATININE (test code = 1086619823) 0.73 mg/dL 0.60-1.25 TOTAL BILI (test code = 9845025771) 0.9 mg/dL 0.1-1.1 CALCIUM (test code = 1022441049) 9.5 mg/dL 8.6-10.6 T PROTEIN (test code = 4407057652) 9.3 g/dL 6.3-8.2 H ALBUMIN (test code = 7650238963) 4.6 g/dL 3.5-5.0 ALK PHOS (test code = 8236697062) 50 U/L 34-122 ALTv (test code = 1742-6) 85 U/L 5-50 H AST(SGOT) (test code = 0532655927) 44 U/L 13-40 H eGFR (test code = 9975096273) 137.0 mL/min/1.73m2 YONY (test code = YONY) [...] imaging tests). Lab Interpretation (test code = 21772-2) Abnormal [facility] WITH [id number] 19:07:31* Test Item Value Reference Range Interpretation Comme nts WBC (test code = 6690-2) 8.23 See_Comment [Automated OOYYO] The system which generated this result transmitted reference range: 4.20 - 10.70 10*3/?L. The reference range was not used to interpret this result as normal/abnormal. RBC (test code = 789-8) 5.17 See_Comment [Automated messa ge] The system which [...] 34.3 g/dL 31.2-35.0 RDW-SD (test code = 34319-7) 39.3 fL 38.5-51.6 RDW-CV (test code = 788-0) 13.1 % 12.1-15.4 PLT (test code = 777-3) 490 See_Comment H [Automated messa ge] The system which generated this result transmitted reference range: 150 - 328 10*3/?L. The reference range was not used to interpret this result as normal/abnormal. MPV (test code = 46147-2) 9.2 fL 9.8-13.0 L NRBC/100 WBC (test code = 4046200913) 0.0 See_Comment [Automated [employer] ssage] The system which generated this result transmitted reference range: 0.0 - 10.0 /100 WBCs. The reference range was not used to interpret this result as normal/abnormal. NRBC x10^3 (test code = 7839428204) See_Comment [Automated [facility] [facility] [employer] ge] The system which generated this result transmitted reference range: 10*3/?L. The reference range was not used to interpret this result as normal/abnormal. GRAN MAT (NEUT) % (test code = 770-8) 61.6 % IMM GRAN % (test code = 6496620876) 0.10 % LYMPH % (test code = 736-9) 31.0 % MONO % (test code = 5905-5) 5.5 % EOS % (test code = 713-8) 1.2 % BASO % (test code = 706-2) 0.6 % GRAN MAT x10^3(ANC) (test code = 1598283454) 5.07 10*3/uL 1.99-6.95 IMM GRAN x10^3 (test code = 8850637971) 0.00-0.06 LYMPH x10^3 (test code = 731-0) 2.55 10*3/uL 1.09-3.23 MONO x10^3 (test code = 742-7) 0.45 10*3/uL 0.36-1.02 EOS x10^3 (test code = 711-2) 0.10 10*3/uL 0.06-0.53 BASO x10^3 (test code = 704-7) 0.05 10*3/uL 0.01-0.09 Lab Interpretation (test code = 13196-9) Abnormal [facility] MOLECULAR [id number] 19:48:00* Test Item Value Reference Range Interpretation Comme nts POCT Molecular FluA (test co de = 57912-7) Negative Negative POCT Molecular FluB (test co de = 30904-4) Negative Negative Lab Interpretation (test cod e = 17052-5) Normal [facility] MOLECULAR [id number] 19:48:00* Test Item Value Reference Range Interpretation Comme nts POCT Molecular FluA (test co de = 34969-4) Negative Negative POCT Molecular FluB (test co de = 99301-3) Negative Negative Lab Interpretation (test cod e = 13775-9) Normal [facility] MOLECULAR EPX7664-67-63 19:48:00* Test Item Value Reference Range Interpretation Comme nts POCT Molecular FluA (test co de = 96876-6) Negative Negative POCT Molecular FluB (test co de = 02835-1) Negative Negative Lab Interpretation (test cod e = 79456-4) Normal [facility] MOLECULAR KCO0300-23-41 19:48:00* Test Item Value Reference Range Interpretation Comme nts POCT Molecular FluA (test co de = 63758-7) Negative Negative POCT Molecular FluB (test co de = 77289-8) Negative Negative Lab Interpretation (test cod e = 49488-1) [facility] MOLECULAR [id number] 19:48:00* Test Item Value Reference Range Interpretation Comme nts POCT Molecular FluA (test co de = 94000-7) Negative Negative POCT Molecular FluB (test co de = 28168-2) Negative Negative Lab Interpretation (test cod e = 62307-6) Normal [facility] SARS-COV-2 ANTIGEN (BINAX NOW)2022-08-19 19:33:00* Test Item Value Reference Range Interpretation Comme nts POCT SARS-COV-2 ANTIGEN (alondra t code = 60325-5) Not Detected Not Detected On board controls acceptable with C Line (test code = 3574) Yes Lab Interpretation (test cod e = 62363-1) [facility] SARS-COV-2 ANTIGEN (BINAX NOW)2022-08-19 19:33:00* Test Item Value Reference Range Interpretation Comme nts POCT SARS-COV-2 ANTIGEN (alondra t code = 10161-5) Not Detected Not Detected On board controls acceptable with C Line (test code = 3574) Yes Lab Interpretation (test cod e = 56621-7) [facility] SARS-COV-2 ANTIGEN (BINAX NOW)2022-08-19 19:33:00* Test Item Value Reference Range Interpretation Comme nts POCT SARS-COV-2 ANTIGEN (alondra t code = 72030-4) Not Detected Not Detected On board controls acceptable with C Line (test code = 3574) Yes Lab Interpretation (test cod e = 39479-0) [facility] SARS-COV-2 ANTIGEN (BINAX NOW)2022-08-19 19:33:00* Test Item Value Reference Range Interpretation Comme nts POCT SARS-COV-2 ANTIGEN (alondra t code = 27557-3) Not Detected Not Detected On board controls acceptable with C Line (test code = 3574) Yes Lab Interpretation (test cod e = 33198-0) [facility] SARS-COV-2 ANTIGEN (BINAX NOW)2022-08-19 19:33:00* Test Item Value Reference Range Interpretation Comme nts POCT SARS-COV-2 ANTIGEN (alondra t code = 92527-0) Not Detected Not Detected On board controls acceptable with C Line (test code = 3574) Yes Lab Interpretation (test cod e = 79413-3) [facility] MOLECULAR [id number] 19:24:19* Test Item Value Reference Range Interpretation Comme nts POCT Molecular Strep (test c ode = 36238-5) Negative Negative Lab Interpretation (test cod e = 13099-7) [facility] MOLECULAR [id number] 19:24:19* Test Item Value Reference Range Interpretation Comme nts POCT Molecular Strep (test c ode = 50968-9) Negative Negative Lab Interpretation (test cod e = 75923-3) [facility] MOLECULAR [id number] 19:24:19* Test Item Value Reference Range Interpretation Comme nts POCT Molecular Strep (test c ode = 97559-0) Negative Negative Lab Interpretation (test cod e = 23958-7) [facility] MOLECULAR [id number] 19:24:19* Test Item Value Reference Range Interpretation Comme nts POCT Molecular Strep (test c ode = 76342-9) Negative Negative Lab Interpretation (test cod e = 68567-6) [facility] MOLECULAR [id number] 19:24:19* Test Item Value Reference Range Interpretation Comme nts POCT Molecular Strep (test c ode = 07672-7) Negative Negative Lab Interpretation (test cod e = 86089-8) [facility] MOLECULAR [id number] 17:32:56* Test Item Value Reference Range Interpretation Comme nts POCT Molecular Strep (test c ode = 00691-4) Negative Negative Lab Interpretation (test cod e = 85557-7) [facility] MOLECULAR [id number] 15:09:53* Test Item Value Reference Range Interpretation Comme nts POCT Molecular FluA (test co de = 45788-0) Negative Negative POCT Molecular FluB (test co de = 43911-0) Negative Negative Lab Interpretation (test cod e = 88148-9) [facility] [id number] 15:04:19* Test Item Value Reference Range Interpretation Comme nts POCT Molecular Strep (test c ode = 78934-1) Negative Negative Lab Interpretation (test cod e = 68409-4) Normal [facility] SARS-COV-2 ANTIGEN (BINAX NOW)2022-04-26 15:04:00* Test Item Value Reference Range Interpretation Comme nts POCT SARS-COV-2 ANTIGEN (alondra t code = 62043-1) Positive Not Detected A On board controls acceptable with C Line (test code = 3574) Yes Lab Interpretation (test cod e = 04078-3) Abnormal [facility] MOLECULAR [id number] 19:30:25* Test Item Value Reference Range Interpretation Comme nts POCT Molecular Strep (test c ode = 76894-8) Positive Negative A Lab Interpretation (test cod e = 54989-1) Abnormal [facility] MOLECULAR [id number] 16:10:06* Test Item Value Reference Range Interpretation Comme nts POCT Molecular Strep (test c ode = 22083-9) Negative Negative Lab Interpretation (test cod e = 72672-4) Normal [facility] MOLECULAR [id number] 14:45:48* Test Item Value Reference Range Interpretation Comme nts POCT Molecular FluA (test co de = 42649-0) Positive Negative A Lab Interpretation (test cod e = 31346-0) Abnormal [facility] MOLECULAR [id number] 17:48:29* Test Item Value Reference Range Interpretation Comme nts POCT Molecular Strep (test c ode = 99738-1) Negative Negative Lab Interpretation (test cod e = 28875-2) Normal [facility] MOLECULAR [id number] 15:04:52* Test Item Value Reference Range Interpretation Comme nts POCT Molecular Strep (test c ode = 14719-8) Positive Negative A Lab Interpretation (test cod e = 91384-2) Abnormal [facility] Notes Date/Time Note Provider Source 2022-09-11 13:30:00 D0t1JWd0o9N5P1txcIDZ wDzbiwz4+RSX/ 32IyQN//flEWw3FV/3tjlmYymFE1edc20 03-10-003:30:00 Lab orders Verified by Cristopher Driver 09/11/2022 1:53 PM 17514-3Fsumk WdvaGQ3617-43-37R04:53:42Nurse NoteTXT1.2.840.012366.1.13.104.2. 7.2.686750|[id number] for patient ldgo54447-8Zkoha QwtuQS364411798Wv[address] QkmeNcskozbsdTonkfkrjhDPSS3402216 963UWEMLBZNNOESDCHLZBLFDO7621-15- 01T13:53:421.2.840.806611.1.72.3. 15|1.2.840.412825.1.13.104.2.7.2. [id number] Cristopher DiazReplaced by [facility] 2022-09-11 13:30:00 OA7yKAYxIdmWb20rqB+Z cwhLHkSgmZdta Lkbwne50/e+80P8ox/A2tuRAg4BtcKo24 03-10-003:30:00 Images from the original note were not included.Venipuncture collection performed by clean technique on the left anticubitus. Total of 1 attempts were made. Slight pressure and a bandage/dressing were applied to the site(s). The patient experienced no complications. The following specimens were processed according to instructions and sent to [facility] laboratories per lab order on 09/11/2022: LT BLUE SST 1 RED LAV 1 PPT DK GREEN (LiHep) DK GREEN (SodH) LEO DK BLUE (K2) DK BLUE (S) ACD Blood Culture NIPT/NTD 13569-2Szptp YrjyOZ0328-86-58N02:55:09Nurse NoteTXT1.2.840.920644.1.13.104.2. 7.2.549643|[id number] for patient steu36511-9Tgdhi [address]TX[address] 560UJBYHGVEPQBDUANIDZXQJM8661-77- 01T13:55:091.2.840.572058.1.72.3. 15|1.2.840.283979.1.13.104.2.7.2. [id number] [facility] 2022-09-04 15:08:07 axYQcnKXxCxXJyL2cCGD O1rKaVL5UrLSl 9sBLvpZvXMRulJR0eUgB7aDPq1j99aC43 02-09-24T15:08:07 Verbalized understanding of discharge instructions. No signs of distress observed. RR even and unlabored. Encouraged to return to ER if symptoms worsen. 40310-3Jfsycnepo department AbogJZ3711-86-23H48:08:13[facility] NoteTXT1.2.840.071610.1.13.104.2. 7.2.623032|[id number] for patient [address] 500PBHXUIIDBPLMBMUUXYDRFV3366-62- 25T15:08:131.2.840.768652.1.72.3. 15|1.2.840.075316.1.13.104.2.7.2. 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 After cooling down just experiencing light headedness now. 39008-0Uojxllnay department Triage tmsrGJ7821-61-31E07:33:35Emergenc y department Triage noteTXT1.2.840.243762.1.13.104.2. 7.2.054394|[id number] for patient tgzu860385631Cowhlqe E Russell RN[address] 909GBQQLLAHCESRYKYQUOQMWR4057-43- 25T12:33:351.2.840.520019.1.72.3. 15|1.2.840.343909.1.13.104.2.7.2. [id number] Jerome Franco RN [facility] 2022-08-23 10:45:13 QcOGB2RUW/uEVRDH94O1 bpOrwYg3hLZLC FMeVyuO+KpF7IHu58INOtatdQ8/teXu20 02-09-12T10:45:13 ATC, left message to return call. 34276-5Dngbyoksv encounter WhzlRQ2664-80-92R88:45:29Telephon e encounter NoteTXT1.2.840.378317.1.13.104.2. 7.2.653178|[id number] for patient xybf50019-4SbxnMADGCXQRPUZTvnzqig ed C-CDA narrative [id number] Olivo MA[address]TX[address] 206BWKOQXKIJZGPMAZCMSJQNR9460-92- 13T10:45:291.2.840.608027.1.72.3. 15|1.2.840.046978.1.13.104.2.7.2. [id number] Hailey Olivo MA [facility]"
--- NOTE | 2023-04-26 17:00 | ER ---
Nurse's Notes [facility] Name: Cliff Kang Age: 23 yrs Sex: Male : 2000 Arrival Date: 04/26/2023 Time: 16:39 Bed 14 Private MD: Diagnosis: Anxiety disorder, unspecified Presentation: 04/25 16:45 Chief complaint: Patient states: Pt c/o anxiety. Pt states he has had 4-5 panic attacks ll1 this week. Pt states he has an appt with PCP on Saturday but needs help until then. Pt states he hasn't been able to sleep or eat, lost 5lbs in 1 week. Pt states he hasn't been on meds in 5 years. Coronavirus screen: At this time, the client does not indicate any symptoms associated with coronavirus-19. Ebola Screen: No symptoms or risks identified at this time. Initial Sepsis Screen: Does the patient meet any 2 criteria? No. Patient's initial sepsis screen is negative. Does the patient have a suspected source of infection? No. Patient's initial sepsis screen is negative. Risk Assessment: Do you want to hurt yourself or someone else? Patient reports no desire to harm self or others. Onset of symptoms was April 19, 2023. 16:45 Method Of Arrival: Ambulatory ll1 16:45 Acuity: MIRNA 4 ll1 Triage Assessment: 16:51 General: Appears distressed, Behavior is flat. Pain: Denies pain. EENT: No deficits ll1 noted. No signs and/or symptoms were reported regarding the EENT system. Neuro: No deficits noted. Cardiovascular: No deficits noted. Respiratory: No deficits noted. GI: Reports nausea, vomiting. : No deficits noted. No signs and/or symptoms were reported regarding the genitourinary system. Derm: No deficits noted. No signs and/or symptoms reported regarding the dermatologic system. Musculoskeletal: No deficits noted. No signs and/or symptoms reported regarding the musculoskeletal system. Historical: - Allergies: 16:49 Tessalon Perles (Anxiety); ll1 - Home Meds: 16:49 None [Active]; ll1 - PMHx: 16:49 ADD/ADHD; Asthma; Depression; mood disorder; Anxiety; ll1 - PSHx: 16:49 Left ACL Repair; ll1 - Immunization history:: Adult Immunizations unknown. - Social history:: Smoking status: Reported history of juuling and/or vaping. Patient uses alcohol, "not every day but constantly". Patient/guardian denies using street drugs. Screenin:59 [facility] ED Fall Risk Assessment (Adult) History of falling in the last 3 months, kc6 including since admission No falls in past 3 months (0 pts) Confusion or Disorientation No (0 pts) Intoxicated or Sedated No (0 pts) Impaired Gait No (0 pts) Mobility Assist Device Used No (0 pt) Altered Elimination No (0 pt) Score/Fall Risk Level 0 - 2 = Low Risk. Abuse screen: Denies threats or abuse. Denies injuries from another. Nutritional screening: No deficits noted. Tuberculosis screening: No symptoms or risk factors identified. Assessment: 16:59 General: Appears in no apparent distress. comfortable, well groomed, well developed, kc6 Behavior is cooperative, anxious. Pain: Denies pain. Neuro: Level of Consciousness is awake, alert, obeys commands, Oriented to person, place, time, situation, Appropriate for age. Cardiovascular: Capillary refill < 3 seconds. Respiratory: Airway is patent Trachea midline Respiratory effort is even, unlabored, Respiratory pattern is regular, symmetrical. GI: Reports anorexia. : EENT: No signs and/or symptoms were reported regarding the EENT system. Derm: No signs and/or symptoms reported regarding the dermatologic system. Skin is intact, is healthy with good turgor, Skin is pink, warm \\T\\ dry. Musculoskeletal: No signs and/or symptoms reported regarding the musculoskeletal system. Circulation, motion, and sensation intact. Capillary refill < 3 seconds, Range of motion: intact in all extremities. Vital Signs: 16:45 BP 145 / 87; Pulse 82; Resp 16; Temp 98.2(TE); Pulse Ox 99% on R/A; Weight 83.91 kg; ll1 Height 5 ft. 5 in. ; Pain 0/10; 16:45 Body Mass Index 30.79 (83.91 kg, 165.1 cm) ll1 16:45 Pain Scale: Adult ll1 ED Course: 16:42 Patient arrived in ED. im 16:43 Fabricio Choe MD is Attending Physician. rt 16:49 Triage completed. ll1 16:51 Woods, Terrie, RN is Primary Nurse. kc6 16:52 Arm band placed on right wrist. ll1 16:59 Patient has correct armband on for positive identification. Bed in low position. Call kc6 light in reach. Side rails up X 1. Client placed on continuous cardiac and pulse oximetry monitoring. NIBP monitoring applied. 16:59 Patient maintains SpO2 saturation greater than 95% on room air. kc6 17:07 No provider procedures requiring assistance completed. Patient did not have IV access kc6 during this emergency room visit. Administered Medications: No medications were administered Medication: 17:08 VIS not applicable for this client. kc6 Outcome: 16:59 Discharge ordered by . rt 17:07 Discharged to home ambulatory, kc6 17:07 Condition: good 17:07 Discharge instructions given to patient, Instructed on discharge instructions, follow up and referral plans. medication usage, Demonstrated understanding of instructions, follow-up care, medications, Prescriptions given X 1, 17:08 Patient left the ED. kc6 Signatures: Nasreen Tate RN RN ll1 Terrie Woods RN RN kc6 Fabricio Choe MD MD rt Bethanie Ovalle
--- NOTE | 2023-04-26 17:00 | EDPHYS ---
Physician Documentation [facility] Name: Cliff Kang Age: 23 yrs Sex: Male : 2000 Arrival Date: 04/26/2023 Time: 16:39 Bed 14 Private MD: ED Physician Fabricio Choe HPI: 04/25 17:24 This 23 yrs old Male presents to ER via Ambulatory with complaints of Anxiety. rt 17:24 Patient presents to the ED with reported anxiety disorder. States his anxiety been rt worse over the past several days but does not anything to take for that. He does have an appoint with his primary care for further anxiety management on Saturday. Denies any suicidal ideation, homicidal ideation. Denies any physical symptoms at this time, symptoms are moderate in severity, no other aggravating or elevating factors.. Historical: - Allergies: 16:49 Tessalon Perles (Anxiety); ll1 - Home Meds: 16:49 None [Active]; ll1 - PMHx: 16:49 ADD/ADHD; Asthma; Depression; mood disorder; Anxiety; ll1 - PSHx: 16:49 Left ACL Repair; ll1 - Immunization history:: Adult Immunizations unknown. - Social history:: Smoking status: Reported history of juuling and/or vaping. Patient uses alcohol, "not every day but constantly". Patient/guardian denies using street drugs. ROS: 17:25 Constitutional: Negative for fever, chills, and weight loss, Cardiovascular: Negative rt for chest pain, palpitations, and edema, Respiratory: Negative for shortness of breath, cough, wheezing, and pleuritic chest pain, Abdomen/GI: Negative for abdominal pain, nausea, vomiting, diarrhea, and constipation, Skin: Negative for injury, rash, and discoloration, Neuro: Negative for headache, weakness, numbness, tingling, and seizure, 17:25 Psych: Positive for anxiety, Negative for suicidal ideation, Exam: 17:25 Constitutional: This is a well developed, well nourished patient who is awake, alert, rt and in no acute distress. Head/Face: Normocephalic, atraumatic. Chest/axilla: Normal chest wall appearance and motion. Nontender with no deformity. No lesions are appreciated. Cardiovascular: Regular rate and rhythm with a normal S1 and S2. No gallops, murmurs, or rubs. Normal PMI, no JVD. No pulse deficits. Respiratory: Lungs have equal breath sounds bilaterally, clear to auscultation and percussion. No rales, rhonchi or wheezes noted. No increased work of breathing, no retractions or nasal flaring. Abdomen/GI: Soft, non-tender, with normal bowel sounds. No distension or tympany. No guarding or rebound. No evidence of tenderness throughout. Skin: Warm, dry with normal turgor. Normal color with no rashes, no lesions, and no evidence of cellulitis. MS/ Extremity: Pulses equal, no cyanosis. Neurovascular intact. Full, normal range of motion. Neuro: Awake and alert, GCS 15, oriented to person, place, time, and situation. Cranial nerves II-XII grossly intact. Motor strength 5/5 in all extremities. Sensory grossly intact. Cerebellar exam normal. Normal gait. Psych: Denies SI, HI Vital Signs: 16:45 BP 145 / 87; Pulse 82; Resp 16; Temp 98.2(TE); Pulse Ox 99% on R/A; Weight 83.91 kg; ll1 Height 5 ft. 5 in. ; Pain 0/10; 16:45 Body Mass Index 30.79 (83.91 kg, 165.1 cm) ll1 16:45 Pain Scale: Adult ll1 MDM: 16:47 Patient medically screened. rt 17:25 Differential Diagnosis Anxiety disorder. Data reviewed: vital signs, nurses notes. Test rt considered but Not performed: Other Details Patient denies SI, HI, has been stable vital signs, benign physical exam, do not believe that labs, EKG are indicated at this time.. Counseling: I had a detailed discussion with the patient and/or guardian regarding the historical points, exam findings, and any diagnostic results supporting the discharge/admit diagnosis, the need for outpatient follow up, to return to the emergency department if symptoms worsen or persist or if there are any questions or concerns that arise at home. Administered Medications: No medications were administered Disposition Summary: 04/26/23 16:59 Discharge Ordered Notes: Location: Home rt Problem: an ongoing problem rt Symptoms: are unchanged rt Condition: Stable rt Diagnosis - Anxiety disorder, unspecified rt Followup: rt - With: Private Physician - When: 2 - 3 days - Reason: Discharge Instructions: - Discharge Summary Sheet rt - Panic Attack rt - Managing Anxiety, Adult rt Forms: - Medication Reconciliation Form rt - Thank You Letter rt - Antibiotic Education rt - Prescription Opioid Use rt - Patient Portal Instructions rt - Leadership Thank You Letter rt Prescriptions: - Hydroxyzine HCl 50 mg Oral Tablet - take 1 tablet ORAL route every 8 hours As needed; 20 tablet; Refills: 0, rt Product Selection Permitted Signatures: Nasreen Tate RN RN ll1 Fabricio Choe MD MD rt
[2023-04-26 18:12] VITALS: BP 145/87; TEMP 98.2; O2SAT 99
== END ==
LOC: ER 16:39
DX: F41.9 Anxiety disorder, unspecified (principal)
CPT/HCPCS: 99284

== ENCOUNTER 2024-02-14 18:07 | Emergency (ER) | payer SELFPAY, OTHER ==
--- OUTSIDE RECORDS SUMMARY | 2024-02-14 18:13 | XMS REPORT | Continuity of Care Document ---
Author Name Unknown Address [address] [facility] [place] [address] [facility] Address [address] [facility] [address] [place] [address] Care Team Providers Care [place] Conservationist Name Role Phone ROBERT GUERIN Primary Care Physician Unavailab Robert Rothman Attending Clinician [phone] PB BELTRAN Attending Clinician Unavailable PB BELTRAN Attending Clinician Unavailable Pb Beltran MD Attending Clinician [phone] ADY DURAN Attending Clinician Unavailable Ady Borrego Attending Clinician [phone] SATHYA VASQUEZ Attending Clinician Unavailable Sathya Sherwood Attending Clinician [phone] Unknown, Attending Attending Clinician Unavailab NORA Allen Attending Clinician Unavailable Nora Barrera MD Attending Clinician [phone] Nora Barrera MD Attending Clinician [phone] Lab, Ang - Db Attending Clinician Unavailable Unknown, Attending Attending Clinician Unavailab Dante Mims Attending Clinician Unavailable Dante CHILDRESS Attending Clinician Unavailable ROBERT GUERIN Attending Clinician Unavailable Robert Amin Attending Clinician [phone] Nurse, [facility] Attending Clinician Un available GISSEL NORRIS Attending Clinician Unavailable CAMPBELL ZIMMERMAN Attending Clinician Unavailable Erasmo STEAMSHIP AGENT, Campbell Attending Clinician [phone] OVI STILES Attending Clinician Unavailable Dno PAOvi Chandler Attending Clinician [phone] MONROE ALVARADO Attending Clinician Unavailable Green STEAMSHIP AGENT, Monroe Attending Clinician [phone] ELDA DOWNS Attending Clinician Unavailab Elda Smith DO Attending Clinician [phone] Ebrahim STEAMSHIP AGENT, Stahya Attending Clinician [phone] Prerna ADAMES, Cami Attending Clinician Unavailable DON CORTEZ Attending Clinician Unavailable Don Cortez MD Attending Clinician [phone] TRACY BABIN Attending Clinician Unavailable Tracy Babin MD Attending Clinician [phone] Doctor Unassigned, Cowen Attending Clinician U MARIMAR Pereira Attending Clinician Unavailable MITALI PHILLIPS Attending Clinician Unavailab oh Phillips STEAMSHIP AGENT, Mitali Ferrara Attending Clinician + [phone] Provider, [facility] Attending Clinician Unavailable Deann ADAMES, Devorah Belle Attending Clinician Unavailab STEVIE Willoughby Attending Clinician Unavailable Kenroy STEAMSHIP AGENT, Shinta Attending Clinician [phone] Stevie Gregg PA-C Attending Clinician [phone] Only, Nickolas Aguirre Test Attending Clinician UnavailYg MCKEONP, Farrukh Attending Clinician [phone] FARRUKH HYMAN Attending Clinician UnavailLEA Antony Attending Clinician Unavailable Anton GILBERT, Chin Brown Attending Clinician [phone] Lab, [facility] Pob I Attending Clinician Unavailab AREN Solitario Attending Clinician Unavailable Mele STEAMSHIP AGENT, Aren Attending Clinician [phone] [facility] Attending Clinician Unavailable UNKNOWN, ATTENDING Attending Clinician Unavailab TACHO Quigley Attending Clinician Unavailabelardo Michelle PT, Mercy G Attending Clinician Unavailab Bee GILBERT, Tacho Sauceda Attending Clinician Landon SAWYER, Guerline Howell Attending Clinician Unavail TRACY Fuller Admitting Clinician Unavailable Payers Payer Name Policy Type Policy Number Effective Date Expirati on Date Source Problems Condition Name Condition Details Condition Category Status Onset Date Resolution Date Last Treatment Date Treating Clinician Comments Source Primary insomnia Primary insomnia Disease Active 04-28 00:00: 00 [facility] Anxiety and depression Anxiety and depression Disease Active 04-28 00:00: 00 [facility] Acute cough Acute cough Disease Active 8 00:00: 00 [facility] Acute cough Acute cough Disease Active 09-11 00:00: 00 [facility] Rupture of anterior cruciate ligament of left knee, initial encounter Rupture of anterior cruciate ligament of left knee, initial encounter Disease Active 2017-02 00:00: 00 Overview: Formattin g of this note might be different from the original. Added automatic ally from request for surgery [id number] [facility] Allergies, Adverse Reactions, Alerts Allergy Name Allergy Type Status Severity Reaction(s) Onset Date Inactive Date Treating Clinician Comments Source BENZONAT ATE DRUG INGREDI Active Anxiety 05-10 00:00: 00 [facility] Benzonat ate Propensi ty to adverse reaction s Active Anxiety 05-10 00:00: 00 [facility] NO KNOWN ALLERGIE S Drug Class Active [facility] Social History Social Habit Start Date Stop Date Quantity Comments Source Gender identity [facility] of tobacco use Cigarette Smoker [facility] Alcoholic beverage intake 2024-01-27 00:00:00 2024-01-27 00:00:00 Current drinker of alcohol (finding) [facility] Tobacco use and exposure 2024-01-27 00:00:00 2024-01-27 00:00:00 User of smokeless tobacco [facility] Cigarettes smoked current (pack per day) - Reported 2024-01-27 00:00:00 2024-01-27 00:00:00 [facility] Cigarette pack-years 2024-01-27 00:00:00 2024-01-27 00:00:00 [facility] Alcohol intake 2023-04-29 00:00:00 2023-04-29 00:00:00 Current drinker of alcohol (finding) [facility] History of Social function 2023-04-29 00:00:00 2023-04-29 00:00:00 [facility] Exposure to SARS-CoV-2 (event) 2022-07-01 00:00:00 2022-07-11 10:50:00 Not sure [facility] Tobacco Comment 2022-04-12 00:00:00 2022-04-12 00:00:00 vape [facility] Alcohol Comment 2022-04-12 00:00:00 2022-04-12 00:00:00 ocassional [facility] Sex assigned at 2002 00:00:00 2000 00:00:00 [facility] Smoking Status Start Date Stop Date Source Smokes tobacco daily 2024-01-27 00:00:00 [facility] Never smoked tobacco [facility] Medications Ordered Medication Name Filled Medication Name Start Date Stop Date Current Medication? Ordering Clinician Indication Dosage Frequency Signature (SIG) Comments Components Source valACYclovi r 500 mg tablet 2023-02 00:00: 00 01-30 05:59 :00 Yes [id number] 500mg Take 1 tablet by mouth in the morning and 1 tablet in the evening. Do all this for 3 days. [facility] famotidine (PEPCID (PF)) injection 20 mg 2023-02 23:15: 00 12-20 23:33 :00 No 20mg 20 mg, Slow IV Push, ONCE, 1 dose, On 12/21/23 at 1715, WILY [facility] ketorolac (TORADOL) injection 15 mg 2023-02 23:00: 00 12-20 23:32 :00 No 15mg 15 mg, Slow IV Push, ONCE, 1 dose, On 12/21/23 at 1700, WILY [facility] ondansetron (ZOFRAN (PF)) injection 4 mg 2023-02 23:00: 00 12-20 23:33 :00 No 4mg 4 mg, Slow IV Push, ONCE, 1 dose, [facility],000 mL 2023-02 22:59: 00 12-21 00:33 :00 No 1000mL at 1,000 mL/hr, 1,000 mL, IV Infusion, ONCE, 1 dose, On 12/21/23 at 1700, [facility] ondansetron 4 mg disintegrat ing tablet 2023-02 00:00: 00 Yes [id number] 4mg Take 1 tablet by mouth every 8 (eight) hours as needed for Nausea and Vomiting (N/V). [facility] dicyclomine 20 mg tablet 2023-02 00:00: 00 Yes [id number] 20mg Take 1 tablet by mouth 4 (four) times daily as needed for Abdominal pain. [facility] methylPREDN ISolone (MEDROL, SUKHI,) 4 mg tablets 2023-02 00:00: 00 Yes [id number] Take by mouth SEE-INSTRU CTIONS. follow package directions [facility] ondansetron 4 mg disintegrat ing tablet 2023-02 00:00: 00 Yes [id number] 4mg Take 1 tablet by mouth every 12 (twelve) hours as needed for Nausea and Vomiting (N/V). [facility] erythromyci n (ILOTYCIN) 5 mg/gram (0.5 %) ophthalmic ointment 0.5 Inch 08-23 04:15: 00 Yes .5[in_u s] 0.5 Inch, Left Eye, QID, First dose on Sat08/23/23 at 2315, Until Discontinu ed, [facility] fluorescein (FUL-DAMIEN) ophthalmic strip 1 Strip 08-23 03:15: 00 08-23 03:32 :00 No 1{strip } 1 Strip, Left Eye, ONCE, 1 dose, On Sat08/23/23 at 2215, Routine [facility] tetracaine (PONTOCAINE ) 0.5 % ophthalmic drops 1 Drop 08-23 03:15: 00 08-23 03:32 :00 No 1[drp] 1 Drop, Left Eye, ONCE, 1 dose, On Sat08/23/23 at 2215, Routine [facility] erythromyci n 5 mg/gram (0.5 %) ophthalmic ointment 08-22 00:00: 00 Yes [id number] .5[in_u s] Place 0.5 Inches in left eye 4 (four) times daily. Continue until you follow up with eye doctor. [facility] ARIPiprazol e (ABILIFY) 2 mg tablet 04-28 08:53: 21 04-28 00:00 :00 No 2mg Take 2 mg by mouth daily. [facility] FLUoxetine 10 mg capsule 04-28 00:00: 00 Yes [id number] 10mg Take 1 capsule by mouth in the morning. [facility] ARIPiprazol e (ABILIFY) 2 mg tablet 04-28 00:00: 00 Yes [id number] 2mg Take 1 tablet by mouth in the morning. [facility] traZODone 50 mg tablet 18 00:00: 00 Yes [id number] 50mg Take 1 tablet by mouth at bedtime. [facility] hydrOXYzine 50 mg tablet 15 00:00: 00 Yes TAKE 1 TABLET BY MOUTH EVERY 8 HOURS NEEDED [facility] proMETHazin e 25 mg tablet 229 00:00: 00 11-16 00:00 :00 No TAKE 1 TABLET BY MOUTH EVERY 6 HOURS NEEDED FOR NAUSEA [facility] ofloxacin 0.3 % otic drops 07 00:00: 00 11-18 04:59 :00 No [id number] 5[drp] Place 5 Drops in left ear at bedtime for 30 days. [facility] ketorolac (TORADOL) injection 30 mg 09-30 23:45: 00 09-30 22:43 :00 No [id number] 30mg [facility] ofloxacin 0.3 % otic drops 09-30 00:00: 00 10-11 04:59 :00 No [id number] 5[drp] Place 5 Drops in left ear in the morning and 5 Drops in the evening. Do all this for 10 days. [facility] azelastine 137 mcg (0.1 %) nasal spray 09-25 00:00: 00 Yes [id number] 1{spray } Use 1 [place] in each nostril in the morning and 1 [place] in the evening. Use in each nostril as directed [facility] dexamethaso ne (DECADRON) injection 10 mg 09-17 19:17: 00 09-17 19:18 :00 No [id number] 10mg [facility] methylPREDN ISolone (MEDROL, SUKHI,) 4 mg tablets 09-17 00:00: 00 Yes [id number] follow package directions [facility] azithromyci n (ZITHROMAX Z-SUKHI) 250 mg tablet 09-17 00:00: 00 Yes [id number] Z pack as directed. [facility] codeine-gua ifenesin 10-100 mg/5 mL oral solution 09-17 00:00: 00 09-23 04:59 :00 No 10mL Take 10 mL by mouth every 6 (six) hours as needed for Cough for up to 5 days. Indication s: cough [facility] albuterol 90 mcg/actuati on inhaler 09-11 00:00: 00 Yes [id number] 2{puff} Inhale 2 Puffs every 6 (six) hours as needed for Wheezing or Shortness of Breath. [facility] cetirizine (ZYRTEC) 10 mg tablet 09-11 00:00: 00 Yes [id number] 10mg Take 1 tablet by mouth in the morning. [facility] Fluticasone -Salmeterol (ADVAIR DISKUS) 100-50 mcg/dose inhalation disk 09-11 00:00: 00 Yes [id number] 1{puff} Inhale 1 Puff every 12 (twelve) hours. [facility] ondansetron (ZOFRAN (PF)) injection 4 mg 09-04 18:45: 00 09-04 18:49 :00 No 4mg 4 mg, Slow IV Push, ONCE, 1 dose, On Sat09/04/22 at 1345, WILY [facility] NaCl 0.9% (NS) bolus infusion 500 mL 09-04 18:30: 00 09-04 20:07 :00 No 500mL at 999 mL/hr, 500 mL, IV Infusion, ONCE, 1 dose, On Sat09/04/22 at 1330, STAT [facility] ondansetron 4 mg disintegrat ing tablet 09-04 00:00: 00 11-16 00:00 :00 No [id number] 4mg Take 1 tablet by mouth every 8 (eight) hours as needed for Nausea and Vomiting (N/V). [facility] amoxicillin 875 mg tablet 08-24 00:00: 00 Yes TAKE 1 TABLET BY MOUTH EVERY 12 HOURS FOR 10 DAYS [facility] dexAMETHaso ne (DECADRON) tablet 12 mg 08-19 20:30: 00 08-19 19:51 :00 No [id number] 12mg [facility] codeine-gua ifenesin 10-100 mg/5 mL oral solution 08-19 00:00: 00 08-27 04:59 :00 No [id number] 10mL Take 10 mL by mouth every 8 (eight) hours as needed for Cough for up to 7 days. Indication s: acute pain [facility] dexamethaso ne (DECADRON) injection 10 mg 07-20 17:15: 00 07-20 16:20 :00 No [id number] 10mg [facility] meperidine HCl/prometh HCl (MEPERIDINE -PROMETHAZI NE ORAL) 07-20 00:00: 00 09-11 00:00 :00 No TAKE 5 ML BY MOUTH 4 TIMES DAILY FOR 10 DAYS [facility] promethazin e-dextromet horphan 6.25-15 mg/5 mL syrup 07-20 00:00: 00 07-31 04:59 :00 No [id number] 5mL Take 5 mL by mouth 4 (four) times daily for 10 days. [facility] amoxicillin -clavulanat e (AUGMENTIN) 875-125 mg per tablet 07-20 00:00: 00 07-31 04:59 :00 No [id number] 1{tbl} Take 1 tablet by mouth in the morning and 1 tablet in the evening. Do all this for 10 days. [facility] cetirizine 10 mg tablet 07-15 00:00: 00 Yes TAKE 1 TABLET BY MOUTH ONCE DAILY NEEDED FOR ALLERGY CONTROL [facility] famotidine 20 mg tablet 07-15 00:00: 00 Yes 20mg Take 1 tablet by mouth in the morning. [facility] predniSONE 20 mg tablet 07-15 00:00: 00 Yes TAKE 2 TABLETS BY MOUTH ONCE DAILY FOR 5 DAYS [facility] azithromyci n 500 mg tablet 07-15 00:00: 00 Yes TAKE 1 TABLET BY MOUTH ONCE DAILY FOR 5 DAYS [facility] bromphenira mine-pseudo ephedrine-D M (BROMFED DM) 2-30-10 mg/5 mL syrup 07-11 00:00: 00 Yes [id number] 10mL Take 10 mL by mouth 4 (four) times daily as needed for Cold symptoms. [facility] albuterol 90 mcg/actuati on inhaler 07-11 00:00: 00 Yes [id number] 2{puff} Inhale 2 Puffs every 6 (six) hours as needed for Shortness of Breath or Wheezing. [facility] ibuprofen 600 mg tablet 07-11 00:00: 00 Yes [id number] 600mg Take 1 tablet by mouth every 6 (six) hours as needed for Pain (scale 1-3) or Pain (scale 4-6). [facility] clindamycin 300 mg capsule -21 00:00: 00 06-23 04:59 :00 No [id number] 300mg Take 1 capsule by mouth 4 (four) times daily for 21 days. [facility] bromphenira mine-pseudo ephedrine-D M (BROMFED DM) 2-30-10 mg/5 mL syrup 330 00:00: 00 05-21 04:59 :00 No [id number] 5mL Take 5 mL by mouth 4 (four) times daily for 10 days. [facility] acetaminoph en-codeine 300-30 mg tablet 05-03 00:00: 00 Yes [id number] 1{tbl} Take 1-2 tablets by mouth every 6 (six) hours as needed for Pain (scale 4-6). Indication s: acute pain [facility] benzonatate 100 mg capsule 05-03 00:00: 00 Yes [id number] 100mg Take 1 capsule by mouth 3 (three) times daily as needed for Cough. [facility] nirmatrelvi r-ritonavir (PAXLOVID, EUA,) 300 mg (150 mg x 2)-100 mg tablet 16 00:00: 00 07-20 00:00 :00 No [id number] 3{tbl} Take 3 tablets by mouth in the morning and 3 tablets in the evening. [facility] penicillin g benzathine (BICILLIN L-A) injection 1.2 Million Units 04-12 20:30: 00 04-12 19:50 :00 No [id number] 1.210 [facility] methylPREDN ISolone sod succ (SOLU-MEDRO L (PF)) injection 40 mg 2021-02 17:15: 00 12-18 16:31 :00 No [id number] 40mg [facility] bromphenira mine-pseudo ephedrine-D M (BROMFED DM) 2-30-10 mg/5 mL syrup 2021-02 00:00: 00 Yes [id number] 5mL Take 5 mL by mouth 4 (four) times daily as needed for Congestion /Allergies . [facility] ondansetron (ZOFRAN-ODT ) disintegrat ing tablet 4 mg 2021-02 15:30: 00 12-14 14:43 :00 No [id number] 4mg [facility] oseltamivir (TAMIFLU) 75 mg capsule 2021-02 00:00: 00 12-20 05:59 :00 No [id number] 75mg Take 1 capsule by mouth in the morning and 1 capsule in the evening. Do all this for 5 days. [facility] bromphenira mine-pseudo ephedrine-D M 2-30-10 mg/5 mL syrup 2021-02 00:00: 00 12-18 00:00 :00 No [id number] 5mL Take 5 mL by mouth 4 (four) times daily as needed for Congestion /Allergies for up to 5 days. [facility] amoxicillin -clavulanat e (AUGMENTIN) 875-125 mg per tablet 09-17 00:00: 00 09-28 04:59 :00 No [id number] 1{tbl} Take 1 tablet by mouth in the morning and 1 tablet in the evening. Do all this for 10 days. [facility] polymyxin B sulf-trimet hoprim 10,000 unit- 1 mg/mL ophthalmic drops 09-17 00:00: 00 09-25 04:59 :00 No [id number] 1[drp] Place 1 Drop in left eye every 6 (six) hours for 7 days. [facility] predniSONE 10 mg tablet 09-17 00:00: 00 09-21 04:59 :00 No [id number] 10mg Take 1 tablet by mouth in the morning for 3 days. [facility] penicillin g benzathine (BICILLIN L-A) injection 1.2 Million Units 08-23 16:15: 00 08-23 15:10 :00 No [id number] 1.210 [facility] bromphenira mine-pseudo ephedrine-D M (BROMFED DM) 2-30-10 mg/5 mL syrup 08-23 00:00: 00 12-14 00:00 :00 No [id number] 5mL Take 5 mL by mouth 4 (four) times daily as needed for Congestion /Allergies . [facility] ARIPiprazol e (ABILIFY) 2 mg tablet 05-14 15:45: 41 Yes 2mg Take 2 mg by mouth daily. [facility] aluminum chloride (DRYSOL) 20 % external solution 05-26 00:00: 00 Yes [id number] Apply to affected areas on palms nightly as tolerated for one week then decrease to every other night [facility] doxycycline 100 mg capsule 04-02 00:00: 00 Yes 100mg Take 1 capsule by mouth 2 (two) times daily. [facility] clindamycin -benzoyl peroxide gel 04-02 00:00: 00 Yes Apply to area(s) every morning. [facility] FLUoxetine 20 mg capsule 2017-02 00:00: 00 04-28 00:00 :00 No [facility] Immunizations Ordered Immunization Name Filled Immunization Name Date Status Comments Source SARS-COV-2 COVID-19 PFIZER ROSELIA-SUCROSE VACCINE (LEO TOP) 2021-04-29 00:00:00 Completed [facility] SARS-COV-2 COVID-19 PFIZER ROSELIA-SUCROSE VACCINE (LEO TOP) 2021-04-29 00:00:00 Completed [facility] SARS-COV-2 COVID-19 PFIZER ROSELIA-SUCROSE VACCINE (LEO TOP) 2021-04-29 00:00:00 Completed [facility] SARS-COV-2 COVID-19 PFIZER ROSELIA-SUCROSE VACCINE (LEO TOP) 2021-04-29 00:00:00 Completed [facility] SARS-COV-2 COVID-19 PFIZER ROSELIA-SUCROSE VACCINE (LEO TOP) 2021-04-29 00:00:00 Completed [facility] SARS-COV-2 COVID-19 PFIZER ROSELIA-SUCROSE VACCINE (LEO TOP) 2021-04-29 00:00:00 Completed [facility] SARS-COV-2 COVID-19 PFIZER ROSELIA-SUCROSE VACCINE (LEO TOP) 2021-04-29 00:00:00 Completed [facility] SARS-COV-2 COVID-19 PFIZER ROSELIA-SUCROSE VACCINE (LEO TOP) 2021-04-29 00:00:00 Completed [facility] SARS-COV-2 COVID-19 PFIZER ROSELIA-SUCROSE VACCINE (LEO TOP) 2021-04-29 00:00:00 Completed [facility] SARS-COV-2 COVID-19 PFIZER ROSELIA-SUCROSE VACCINE (LEO TOP) 2021-04-29 00:00:00 Completed [facility] SARS-COV-2 COVID-19 PFIZER ROSELIA-SUCROSE VACCINE (LEO TOP) 2021-04-29 00:00:00 Completed [facility] SARS-COV-2 COVID-19 PFIZER ROSELIA-SUCROSE VACCINE (LEO TOP) 2021-04-29 00:00:00 Completed [facility] SARS-COV-2 COVID-19 PFIZER ROSELIA-SUCROSE VACCINE (LEO TOP) 2021-04-29 00:00:00 Completed [facility] SARS-COV-2 COVID-19 PFIZER ROSELIA-SUCROSE VACCINE (LEO TOP) 2021-04-29 00:00:00 Completed [facility] SARS-COV-2 COVID-19 PFIZER ROSELIA-SUCROSE VACCINE (LEO TOP) 2021-04-29 00:00:00 Completed [facility] SARS-COV-2 COVID-19 PFIZER ROSELIA-SUCROSE VACCINE (LEO TOP) 2021-04-29 00:00:00 Completed [facility] SARS-COV-2 COVID-19 PFIZER ROSELIA-SUCROSE VACCINE (LEO TOP) 2021-04-29 00:00:00 Completed [facility] SARS-COV-2 COVID-19 PFIZER ROSELIA-SUCROSE VACCINE (LEO TOP) 2021-04-29 00:00:00 Completed [facility] SARS-COV-2 COVID-19 PFIZER ROSELIA-SUCROSE VACCINE (LEO TOP) 2021-04-29 00:00:00 Completed [facility] SARS-COV-2 COVID-19 PFIZER ROSELIA-SUCROSE VACCINE (LEO TOP) 2021-04-29 00:00:00 Completed [facility] SARS-COV-2 COVID-19 PFIZER ROSELIA-SUCROSE VACCINE (LEO TOP) 2021-04-29 00:00:00 Completed [facility] SARS-COV-2 COVID-19 PFIZER ROSELIA-SUCROSE VACCINE (LEO TOP) 2021-04-29 00:00:00 Completed [facility] SARS-COV-2 COVID-19 PFIZER ROSELIA-SUCROSE VACCINE (LEO TOP) 2021-04-29 00:00:00 Completed [facility] SARS-COV-2 COVID-19 PFIZER ROSELIA-SUCROSE VACCINE (LEO TOP) 2021-04-29 00:00:00 Completed [facility] SARS-COV-2 COVID-19 PFIZER ROSELIA-SUCROSE VACCINE (LEO TOP) 2021-04-29 00:00:00 Completed [facility] SARS-COV-2 COVID-19 PFIZER ROSELIA-SUCROSE VACCINE (LEO TOP) 2021-04-29 00:00:00 Completed [facility] SARS-COV-2 COVID-19 PFIZER ROSELIA-SUCROSE VACCINE (LEO TOP) 2021-04-29 00:00:00 Completed [facility] SARS-COV-2 COVID-19 PFIZER ROSELIA-SUCROSE VACCINE (LEO TOP) 2021-04-29 00:00:00 Completed [facility] SARS-COV-2 COVID-19 PFIZER ROSELIA-SUCROSE VACCINE (LEO TOP) 2021-04-29 00:00:00 Completed [facility] SARS-COV-2 COVID-19 PFIZER ROSELIA-SUCROSE VACCINE (LEO TOP) 2021-04-29 00:00:00 Completed [facility] SARS-COV-2 COVID-19 PFIZER ROSELIA-SUCROSE VACCINE (LEO TOP) 2021-04-29 00:00:00 Completed [facility] SARS-COV-2 COVID-19 PFIZER ROSELIA-SUCROSE VACCINE (LEO TOP) 2021-04-29 00:00:00 Completed [facility] SARS-COV-2 COVID-19 PFIZER ROSELIA-SUCROSE VACCINE (LEO TOP) 2021-04-29 00:00:00 Completed [facility] SARS-COV-2 COVID-19 PFIZER ROSELIA-SUCROSE VACCINE (LEO TOP) 2021-04-29 00:00:00 Completed [facility] SARS-COV-2 COVID-19 PFIZER ROSELIA-SUCROSE VACCINE (LEO TOP) 2021-04-29 00:00:00 Completed [facility] SARS-COV-2 COVID-19 PFIZER ROSELIA-SUCROSE VACCINE (LEO TOP) 2021-04-29 00:00:00 Completed [facility] SARS-COV-2 COVID-19 PFIZER VACCINE 2020-05-25 00:00:00 Completed [facility] SARS-COV-2 COVID-19 PFIZER VACCINE 2020-05-25 00:00:00 Completed [facility] SARS-COV-2 COVID-19 PFIZER VACCINE 2020-05-25 00:00:00 Completed [facility] SARS-COV-2 COVID-19 PFIZER VACCINE 2020-05-25 00:00:00 Completed [facility] SARS-COV-2 COVID-19 PFIZER VACCINE 2020-05-25 00:00:00 Completed [facility] SARS-COV-2 COVID-19 PFIZER VACCINE 2020-05-25 00:00:00 Completed [facility] SARS-COV-2 COVID-19 PFIZER VACCINE 2020-05-25 00:00:00 Completed [facility] SARS-COV-2 COVID-19 PFIZER VACCINE 2020-05-25 00:00:00 Completed [facility] SARS-COV-2 COVID-19 PFIZER VACCINE 2020-05-25 00:00:00 Completed [facility] SARS-COV-2 COVID-19 PFIZER VACCINE 2020-05-25 00:00:00 Completed [facility] SARS-COV-2 COVID-19 PFIZER VACCINE 2020-05-25 00:00:00 Completed [facility] SARS-COV-2 COVID-19 PFIZER VACCINE 2020-05-25 00:00:00 Completed [facility] SARS-COV-2 COVID-19 PFIZER VACCINE 2020-05-25 00:00:00 Completed [facility] SARS-COV-2 COVID-19 PFIZER VACCINE 2020-05-25 00:00:00 Completed [facility] SARS-COV-2 COVID-19 PFIZER VACCINE 2020-05-25 00:00:00 Completed [facility] SARS-COV-2 COVID-19 PFIZER VACCINE 2020-05-25 00:00:00 Completed [facility] SARS-COV-2 COVID-19 PFIZER VACCINE 2020-05-25 00:00:00 Completed [facility] SARS-COV-2 COVID-19 PFIZER VACCINE 2020-05-25 00:00:00 Completed [facility] SARS-COV-2 COVID-19 PFIZER VACCINE 2020-05-25 00:00:00 Completed [facility] SARS-COV-2 COVID-19 PFIZER VACCINE 2020-05-25 00:00:00 Completed [facility] SARS-COV-2 COVID-19 PFIZER VACCINE 2020-05-25 00:00:00 Completed [facility] SARS-COV-2 COVID-19 PFIZER VACCINE 2020-05-25 00:00:00 Completed [facility] SARS-COV-2 COVID-19 PFIZER VACCINE 2020-05-25 00:00:00 Completed [facility] SARS-COV-2 COVID-19 PFIZER VACCINE 2020-05-25 00:00:00 Completed [facility] SARS-COV-2 COVID-19 PFIZER VACCINE 2020-05-25 00:00:00 Completed [facility] SARS-COV-2 COVID-19 PFIZER VACCINE 2020-05-25 00:00:00 Completed [facility] SARS-COV-2 COVID-19 PFIZER VACCINE 2020-05-25 00:00:00 Completed [facility] SARS-COV-2 COVID-19 PFIZER VACCINE 2020-05-25 00:00:00 Completed [facility] SARS-COV-2 COVID-19 PFIZER VACCINE 2020-05-25 00:00:00 Completed [facility] SARS-COV-2 COVID-19 PFIZER VACCINE 2020-05-25 00:00:00 Completed [facility] SARS-COV-2 COVID-19 PFIZER VACCINE 2020-05-25 00:00:00 Completed [facility] SARS-COV-2 COVID-19 PFIZER VACCINE 2020-05-25 00:00:00 Completed [facility] SARS-COV-2 COVID-19 PFIZER VACCINE 2020-05-25 00:00:00 Completed [facility] SARS-COV-2 COVID-19 PFIZER VACCINE 2020-05-25 00:00:00 Completed [facility] SARS-COV-2 COVID-19 PFIZER VACCINE 2020-05-25 00:00:00 Completed [facility] SARS-COV-2 COVID-19 PFIZER VACCINE 2020-05-25 00:00:00 Completed [facility] SARS-COV-2 COVID-19 PFIZER VACCINE 2020-05-04 00:00:00 Completed [facility] SARS-COV-2 COVID-19 PFIZER VACCINE 2020-05-04 00:00:00 Completed [facility] SARS-COV-2 COVID-19 PFIZER VACCINE 2020-05-04 00:00:00 Completed [facility] SARS-COV-2 COVID-19 PFIZER VACCINE 2020-05-04 00:00:00 Completed [facility] SARS-COV-2 COVID-19 PFIZER VACCINE 2020-05-04 00:00:00 Completed [facility] SARS-COV-2 COVID-19 PFIZER VACCINE 2020-05-04 00:00:00 Completed [facility] SARS-COV-2 COVID-19 PFIZER VACCINE 2020-05-04 00:00:00 Completed [facility] SARS-COV-2 COVID-19 PFIZER VACCINE 2020-05-04 00:00:00 Completed [facility] SARS-COV-2 COVID-19 PFIZER VACCINE 2020-05-04 00:00:00 Completed [facility] SARS-COV-2 COVID-19 PFIZER VACCINE 2020-05-04 00:00:00 Completed [facility] SARS-COV-2 COVID-19 PFIZER VACCINE 2020-05-04 00:00:00 Completed [facility] SARS-COV-2 COVID-19 PFIZER VACCINE 2020-05-04 00:00:00 Completed [facility] SARS-COV-2 COVID-19 PFIZER VACCINE 2020-05-04 00:00:00 Completed [facility] SARS-COV-2 COVID-19 PFIZER VACCINE 2020-05-04 00:00:00 Completed [facility] SARS-COV-2 COVID-19 PFIZER VACCINE 2020-05-04 00:00:00 Completed [facility] SARS-COV-2 COVID-19 PFIZER VACCINE 2020-05-04 00:00:00 Completed [facility] SARS-COV-2 COVID-19 PFIZER VACCINE 2020-05-04 00:00:00 Completed [facility] SARS-COV-2 COVID-19 PFIZER VACCINE 2020-05-04 00:00:00 Completed [facility] SARS-COV-2 COVID-19 PFIZER VACCINE 2020-05-04 00:00:00 Completed [facility] SARS-COV-2 COVID-19 PFIZER VACCINE 2020-05-04 00:00:00 Completed [facility] SARS-COV-2 COVID-19 PFIZER VACCINE 2020-05-04 00:00:00 Completed [facility] SARS-COV-2 COVID-19 PFIZER VACCINE 2020-05-04 00:00:00 Completed [facility] SARS-COV-2 COVID-19 PFIZER VACCINE 2020-05-04 00:00:00 Completed [facility] SARS-COV-2 COVID-19 PFIZER VACCINE 2020-05-04 00:00:00 Completed [facility] SARS-COV-2 COVID-19 PFIZER VACCINE 2020-05-04 00:00:00 Completed [facility] SARS-COV-2 COVID-19 PFIZER VACCINE 2020-05-04 00:00:00 Completed [facility] SARS-COV-2 COVID-19 PFIZER VACCINE 2020-05-04 00:00:00 Completed [facility] SARS-COV-2 COVID-19 PFIZER VACCINE 2020-05-04 00:00:00 Completed [facility] SARS-COV-2 COVID-19 PFIZER VACCINE 2020-05-04 00:00:00 Completed [facility] SARS-COV-2 COVID-19 PFIZER VACCINE 2020-05-04 00:00:00 Completed [facility] SARS-COV-2 COVID-19 PFIZER VACCINE 2020-05-04 00:00:00 Completed [facility] SARS-COV-2 COVID-19 PFIZER VACCINE 2020-05-04 00:00:00 Completed [facility] SARS-COV-2 COVID-19 PFIZER VACCINE 2020-05-04 00:00:00 Completed [facility] SARS-COV-2 COVID-19 PFIZER VACCINE 2020-05-04 00:00:00 Completed [facility] SARS-COV-2 COVID-19 PFIZER VACCINE 2020-05-04 00:00:00 Completed [facility] SARS-COV-2 COVID-19 PFIZER VACCINE 2020-05-04 00:00:00 Completed [facility] SARS-COV-2 COVID-19 PFIZER VACCINE Unknown Completed [facility] SARS-COV-2 COVID-19 PFIZER ROSELIA-SUCROSE VACCINE (LEO TOP) Unknown [facility] PFIZ[facility] VACCINE Unknown Completed [facility] SARS-COV-2 COVID-19 PFIZER ROSELIA-SUCROSE VACCINE (LEO TOP) Unknown [facility]-19 PFIZER VACCINE Unknown Completed [facility] SARS-COV-2 COVID-19 PFIZER ROSELIA-SUCROSE VACCINE (LEO TOP) Unknown Completed [facility] SARS-COV-2 COVID-19 PFIZER VACCINE Unknown Completed [facility] SARS-COV-2 COVID-19 PFIZER ROSELIA-SUCROSE VACCINE (LEO TOP) Unknown Completed [facility] SARS-COV-2 COVID-19 PFIZER VACCINE Unknown Completed [facility] SARS-COV-2 COVID-19 PFIZER ROSELIA-SUCROSE VACCINE (LEO TOP) Unknown Completed [facility] SARS-COV-2 COVID-19 PFIZER ROSELIA-SUCROSE VACCINE (LEO TOP) Unknown Completed [facility] SARS-COV-2 COVID-19 PFIZER VACCINE Unknown Completed [facility] SARS-COV-2 COVID-19 PFIZER VACCINE Unknown Completed [facility] SARS-COV-2 COVID-19 PFIZER ROSELIA-SUCROSE VACCINE (LEO TOP) Unknown Completed [facility] SARS-COV-2 COVID-19 PFIZER VACCINE Unknown Completed [facility] SARS-COV-2 COVID-19 PFIZER ROSELIA-SUCROSE VACCINE (LEO TOP) Unknown Completed [facility] SARS-COV-2 COVID-19 PFIZER VACCINE Unknown Completed [facility] SARS-COV-2 COVID-19 PFIZER ROSELIA-SUCROSE VACCINE (LEO TOP) Unknown Completed [facility] SARS-COV-2 COVID-19 PFIZER VACCINE Unknown Completed [facility] SARS-COV-2 COVID-19 PFIZER ROSELIA-SUCROSE VACCINE (LEO TOP) Unknown Completed [facility] SARS-COV-2 COVID-19 PFIZER VACCINE Unknown Completed [facility] SARS-COV-2 COVID-19 PFIZER ROSELIA-SUCROSE VACCINE (LEO TOP) Unknown Completed [facility] Vital Signs Vital Name Observation Time Observation Value Comments S our Systolic blood pressure 2024-01-27 16:20:00 131 mm[Hg] [facility] Diastolic blood pressure 2024-01-27 16:20:00 87 mm[Hg] [facility] Heart rate 2024-01-27 16:20:00 82 /min [facility] Body temperature 2024-01-27 16:20:00 36.61 Ivone [facility] Body height 2024-01-27 16:20:00 165.1 cm [facility] Body weight 2024-01-27 16:20:00 91.808 kg [facility] BMI 2024-01-27 16:20:00 33.68 kg/m2 [facility] Oxygen saturation in Arterial blood by Pulse oximetry 2024-01-27 16:20:00 99 /min [facility] Systolic blood pressure 2023-12-22 01:00:00 126 mm[Hg] [facility] Diastolic blood pressure 2023-12-22 01:00:00 67 mm[Hg] [facility] Heart rate 2023-12-22 01:00:00 59 /min [facility] Body temperature 2023-12-22 01:00:00 36.89 Ivone [facility] Respiratory rate 2023-12-22 01:00:00 18 /min [facility] Oxygen saturation in Arterial blood by Pulse oximetry 2023-12-22 01:00:00 98 /min [facility] Body height 2023-12-21 22:57:00 165.1 cm [facility] Body weight 2023-12-21 22:57:00 91.173 kg [facility] BMI 2023-12-21 22:57:00 33.45 kg/m2 [facility] Systolic blood pressure 2023-11-20 18:02:00 130 mm[Hg] [facility] Diastolic blood pressure 2023-11-20 18:02:00 88 mm[Hg] [facility] Heart rate 2023-11-20 18:01:00 87 /min [facility] Body temperature 2023-11-20 18:01:00 36.78 Ivone [facility] Respiratory rate 2023-11-20 18:01:00 18 /min [facility] Body weight 2023-11-20 18:01:00 88.814 kg [facility] BMI 2023-11-20 18:01:00 32.58 kg/m2 [facility] Oxygen saturation in Arterial blood by Pulse oximetry 2023-11-20 18:01:00 97 /min [facility] Systolic blood pressure 2023-11-17 15:53:00 139 mm[Hg] [facility] Diastolic blood pressure 2023-11-17 15:53:00 84 mm[Hg] [facility] Heart rate 2023-11-17 15:53:00 73 /min [facility] Body temperature 2023-11-17 15:53:00 36.83 Ivone [facility] Respiratory rate 2023-11-17 15:53:00 18 /min [facility] Body weight 2023-11-17 15:53:00 91.853 kg [facility] BMI 2023-11-17 15:53:00 33.70 kg/m2 [facility] Oxygen saturation in Arterial blood by Pulse oximetry 2023-11-17 15:53:00 97 /min [facility] Systolic blood pressure 2023-08-27 19:09:00 136 mm[Hg] [facility] Diastolic blood pressure 2023-08-27 19:09:00 66 mm[Hg] [facility] Heart rate 2023-08-27 19:09:00 113 /min [facility] Body temperature 2023-08-27 19:09:00 36.78 Ivone [facility] Respiratory rate 2023-08-27 19:09:00 18 /min [facility] Body weight 2023-08-27 19:09:00 90.855 kg [facility] BMI 2023-08-27 19:09:00 33.33 kg/m2 [facility] Oxygen saturation in Arterial blood by Pulse oximetry 2023-08-27 19:09:00 98 /min [facility] Systolic blood pressure 2023-08-24 03:38:00 149 mm[Hg] [facility] Diastolic blood pressure 2023-08-24 03:38:00 85 mm[Hg] [facility] Heart rate 2023-08-24 03:38:00 70 /min [facility] Body temperature 2023-08-24 03:38:00 37.17 Ivone [facility] Respiratory rate 2023-08-24 03:38:00 18 /min [facility] Oxygen saturation in Arterial blood by Pulse oximetry 2023-08-24 03:38:00 97 /min [facility] Body height 2023-08-24 01:35:00 165.1 cm [facility] Body weight 2023-08-24 01:35:00 91.128 kg [facility] BMI 2023-08-24 01:35:00 33.43 kg/m2 [facility] Systolic blood pressure 2023-04-29 13:31:00 136 mm[Hg] [facility] Diastolic blood pressure 2023-04-29 13:31:00 85 mm[Hg] [facility] Heart rate 2023-04-29 13:31:00 70 /min [facility] Body temperature 2023-04-29 13:31:00 36.67 Ivone [facility] Respiratory rate 2023-04-29 13:31:00 18 /min [facility] Body height 2023-04-29 13:31:00 165.1 cm [facility] Body weight 2023-04-29 13:31:00 87.363 kg [facility] BMI 2023-04-29 13:31:00 [facility]ter[facility] by Pulse oximetry 2023-04-29 13:31:00 98 /min [facility] Systolic blood pressure 2023-04-26 20:59:00 129 mm[Hg] [facility] Diastolic blood pressure 2023-04-26 20:59:00 82 mm[Hg] [facility] Heart rate 2023-04-26 20:59:00 79 /min [facility] Body temperature 2023-04-26 20:59:00 37.44 Ivone [facility] Respiratory rate 2023-04-26 20:59:00 16 /min [facility] Body height 2023-04-26 20:59:00 165.1 cm [facility] Body weight 2023-04-26 20:59:00 83.915 kg [facility] BMI 2023-04-26 20:59:00 30.79 kg/m2 [facility] Oxygen saturation in Arterial blood by Pulse oximetry 2023-04-26 20:59:00 99 /min [facility] Systolic blood pressure 2023-04-01 16:05:00 140 mm[Hg] [facility] Diastolic blood pressure 2023-04-01 16:05:00 93 mm[Hg] [facility] Heart rate 2023-04-01 16:04:00 78 /min [facility] Body temperature 2023-04-01 16:04:00 36.22 Ivone [facility] Respiratory rate 2023-04-01 16:04:00 18 /min [facility] Body height 2023-04-01 16:04:00 165.1 cm [facility] Body weight 2023-04-01 16:04:00 86.41 kg [facility] BMI 2023-04-01 16:04:00 31.70 [facility] in Arterial blood by Pulse oximetry 2023-04-01 16:04:00 100 /min [facility] Body height 2022-10-18 18:55:00 165.1 cm [facility] Body weight 2022-10-18 18:55:00 80.015 kg [facility] BMI 2022-10-18 18:55:00 29.35 kg/m2 [facility] Systolic blood pressure 2022-09-30 22:20:00 123 mm[Hg] [facility] Diastolic blood pressure 2022-09-30 22:20:00 86 mm[Hg] [facility] Heart rate 2022-09-30 22:20:00 95 /min [facility] Body temperature 2022-09-30 22:20:00 36.94 Ivone [facility] Respiratory rate 2022-09-30 22:20:00 18 /min [facility] Body height 2022-09-30 22:20:00 165.1 cm [facility] Body weight 2022-09-30 22:20:00 77.168 kg [facility] BMI 2022-09-30 22:20:00 28.31 kg/m2 [facility] Oxygen saturation in Arterial blood by Pulse oximetry 2022-09-30 22:20:00 97 /min [facility] Systolic blood pressure 2022-09-25 21:13:00 118 mm[Hg] [facility] Diastolic blood pressure 2022-09-25 21:13:00 73 mm[Hg] [facility] Heart rate 2022-09-25 21:13:00 80 /min [facility] Body temperature 2022-09-25 21:13:00 37 Ivone [facility] Body height 2022-09-25 21:13:00 165.1 cm [facility] Body weight 2022-09-25 21:13:00 79.379 kg [facility] BMI 2022-09-25 21:13:00 29.12 kg/m2 [facility] Oxygen saturation in Arterial blood by Pulse oximetry 2022-09-25 21:13:00 98 /min [facility] Systolic blood pressure 2022-09-17 19:01:00 124 mm[Hg] [facility] Diastolic blood pressure 2022-09-17 19:01:00 83 mm[Hg] [facility] Heart rate 2022-09-17 19:01:00 97 /min [facility] Body temperature 2022-09-17 19:01:00 37.17 Ivone [facility] Respiratory rate 2022-09-17 19:01:00 18 /min [facility] Body height 2022-09-17 19:01:00 165.1 cm [facility] Body weight 2022-09-17 19:01:00 77.656 kg [facility] BMI 2022-09-17 19:01:00 28.49 kg/m2 [facility] Oxygen saturation in Arterial blood by Pulse oximetry 2022-09-17 19:01:00 98 /min [facility] Systolic blood pressure 2022-09-11 17:48:00 113 mm[Hg] [facility] Diastolic blood pressure 2022-09-11 17:48:00 75 mm[Hg] [facility] Heart rate 2022-09-11 17:48:00 97 /min [facility] Body temperature 2022-09-11 17:48:00 37 Ivone [facility] Body height 2022-09-11 17:48:00 165.1 cm [facility] Body weight 2022-09-11 17:48:00 77.973 kg [facility] BMI 2022-09-11 17:48:00 28.61 kg/m2 [facility] Oxygen saturation in Arterial blood by Pulse oximetry 2022-09-11 17:48:00 98 /min [facility] Systolic blood pressure 2022-09-04 20:00:00 122 mm[Hg] [facility] Diastolic blood pressure 2022-09-04 20:00:00 72 mm[Hg] [facility] Heart rate 2022-09-04 20:00:00 87 /min [facility] Oxygen saturation in Arterial blood by Pulse oximetry 2022-09-04 20:00:00 100 /min [facility] Respiratory rate 2022-09-04 19:00:00 18 /min [facility] Body temperature 2022-09-04 17:32:00 37.22 Ivone [facility] Body weight 2022-09-04 17:32:00 80.74 kg [facility] Systolic blood pressure 2022-08-19 19:14:00 131 mm[Hg] [facility] Diastolic blood pressure 2022-08-19 19:14:00 85 mm[Hg] [facility] Heart rate 2022-08-19 19:14:00 93 /min [facility] Body temperature 2022-08-19 19:14:00 36.94 Ivone [facility] Respiratory rate 2022-08-19 19:14:00 17 /min [facility] Body height 2022-08-19 19:14:00 165.1 cm [facility] Body weight 2022-08-19 19:14:00 80.825 kg [facility] BMI 2022-08-19 19:14:00 29.65 kg/m2 [facility] Oxygen saturation in Arterial blood by Pulse oximetry 2022-08-19 19:14:00 97 /min [facility] Systolic blood pressure 2022-07-20 16:02:00 115 mm[Hg] [facility] Diastolic blood pressure 2022-07-20 16:02:00 85 mm[Hg] [facility] Heart rate 2022-07-20 16:02:00 89 /min [facility] Body temperature 2022-07-20 16:02:00 36.94 Ivone [facility] Respiratory rate 2022-07-20 16:02:00 16 /min [facility] Body weight 2022-07-20 16:02:00 83.416 kg [facility] Oxygen saturation in Arterial blood by Pulse oximetry 2022-07-20 16:02:00 97 /min [facility] Systolic blood pressure 2022-07-11 16:03:00 130 mm[Hg] [facility] Diastolic blood pressure 2022-07-11 16:03:00 79 mm[Hg] [facility] Heart rate 2022-07-11 16:00:00 95 /[facility] 2022-07-11 16:00:00 36.83 Ivone [facility] Respiratory rate 2022-07-11 16:00:00 17 /min [facility] Body height 2022-07-11 16:00:00 [facility].1 [facility] Body weight 2022-07-11 16:00:00 81.965 kg [facility] BMI 2022-07-11 16:00:00 30.07 kg[facility]2 [facility] O[facility] in Arterial blood by Pulse oximetry 2022-07-11 16:00:00 96 /min [facility] Systolic blood pressure 2022-06-02 17:13:00 113 mm[Hg] [facility] Diastolic blood pressure 2022-06-02 17:13:00 77 mm[Hg] [facility] Heart rate 2022-06-02 17:13:00 72 /min [facility] Body temperature 2022-06-02 17:13:00 36.28 Ivone [facility] Respiratory rate 2022-06-02 17:13:00 18 /min [facility] Body height 2022-06-02 17:13:00 167.6 cm [facility] Body weight 2022-06-02 17:13:00 84.868 kg [facility] BMI 2022-06-02 17:13:00 30.20 [facility] O[facility] in Arterial blood by Pulse oximetry 2022-06-02 17:13:00 98 /min [facility] Body height 2022-06-01 14:02:00 [facility].1 [facility] Body weight 2022-06-01 14:02:00 85.004 [facility] BMI 2022-06-01 14:02:00 31.18 kg/m2 [facility] Systolic blood pressure 2022-05-10 20:12:00 134 mm[Hg] [facility] Diastolic blood pressure 2022-05-10 20:12:00 82 mm[Hg] [facility] Heart rate 2022-05-10 20:10:00 108 /min [facility] Body temperature 2022-05-10 20:10:00 36.89 Ivone [facility] Respiratory rate 2022-05-10 20:10:00 16 /min [facility] Body height 2022-05-10 20:10:00 165.1 cm [facility] Body weight 2022-05-10 20:10:00 85.548 kg [facility] BMI 2022-05-10 20:10:00 31.38 kg/m2 [facility] Oxygen saturation in Arterial blood by Pulse oximetry 2022-05-10 20:10:00 99 /min [facility] Systolic blood pressure 2022-05-04 00:58:00 148 mm[Hg] [facility] Diastolic blood pressure 2022-05-04 00:58:00 80 mm[Hg] [facility] Heart rate 2022-05-04 00:58:00 98 /min [facility] Body temperature 2022-05-04 00:58:00 37.28 Ivone [facility] Respiratory rate 2022-05-04 00:58:00 24 /min [facility] Body height 2022-05-04 00:58:00 165.1 cm [facility] Body weight 2022-05-04 00:58:00 85.049 kg [facility] BMI 2022-05-04 00:58:00 31.20 kg/m2 [facility] Oxygen saturation in Arterial blood by Pulse oximetry 2022-05-04 00:58:00 99 /min [facility] Systolic blood pressure 2022-04-26 14:51:00 139 mm[Hg] [facility] Diastolic blood pressure 2022-04-26 14:51:00 88 mm[Hg] [facility] Heart rate 2022-04-26 14:50:00 112 /min [facility] Body temperature 2022-04-26 14:50:00 38.11 Ivone [facility] Respiratory rate 2022-04-26 14:50:00 16 /min [facility] Body height 2022-04-26 14:50:00 165.1 cm [facility] Body weight 2022-04-26 14:50:00 86.501 kg [facility] BMI 2022-04-26 14:50:00 31.73 kg/m2 [facility] Oxygen saturation in Arterial blood by Pulse oximetry 2022-04-26 14:50:00 96 /min [facility] Systolic blood pressure 2022-04-12 19:10:00 129 mm[Hg] [facility] Diastolic blood pressure 2022-04-12 19:10:00 84 mm[Hg] [facility] Heart rate 2022-04-12 19:10:00 90 /min [facility] Body temperature 2022-04-12 19:10:00 37.06 Ivone [facility] Respiratory rate 2022-04-12 19:10:00 18 /min [facility] Body height 2022-04-12 19:10:00 165.1 cm [facility] Body weight 2022-04-12 19:10:00 85.503 kg [facility] BMI 2022-04-12 19:10:00 31.37 kg/m2 [facility] Oxygen saturation in Arterial blood by Pulse oximetry 2022-04-12 19:10:00 99 /min [facility] Systolic blood pressure 2021-12-18 16:02:00 127 mm[Hg] [facility] Diastolic blood pressure 2021-12-18 16:02:00 85 mm[Hg] [facility] Heart rate 2021-12-18 16:02:00 82 /min [facility] Body temperature 2021-12-18 16:02:00 36.44 Ivone [facility] Respiratory rate 2021-12-18 16:02:00 18 /min [facility] Body height 2021-12-18 16:02:00 165.2 cm [facility] Body weight 2021-12-18 16:02:00 83.008 kg [facility] BMI 2021-12-18 16:02:00 30.43 kg/m2 [facility] Oxygen saturation in Arterial blood by Pulse oximetry 2021-12-18 16:02:00 98 /min [facility] Systolic blood pressure 2021-12-14 14:35:00 123 mm[Hg] [facility] Diastolic blood pressure 2021-12-14 14:35:00 69 mm[Hg] [facility] Heart rate 2021-12-14 14:35:00 109 /min [facility] Body temperature 2021-12-14 14:35:00 37 Ivone [facility] Respiratory rate 2021-12-14 14:35:00 16 /min [facility] Body weight 2021-12-14 14:35:00 83.371 kg [facility] Oxygen saturation in Arterial blood by Pulse oximetry 2021-12-14 14:35:00 98 /min [facility] Systolic blood pressure 2021-09-17 17:33:00 119 mm[Hg] [facility] Diastolic blood pressure 2021-09-17 17:33:00 84 mm[Hg] [facility] Heart rate 2021-09-17 17:33:00 96 /min [facility] Body temperature 2021-09-17 17:33:00 37.11 Ivone [facility] Respiratory rate 2021-09-17 17:33:00 16 /min [facility] Body height 2021-09-17 17:33:00 165.1 cm [facility] Body weight 2021-09-17 17:33:00 83.008 kg [facility] BMI 2021-09-17 17:33:00 30.45 kg/m2 [facility] Oxygen saturation in Arterial blood by Pulse oximetry 2021-09-17 17:33:00 98 /min [facility] Systolic blood pressure 2021-09-07 17:21:00 129 mm[Hg] [facility] Diastolic blood pressure 2021-09-07 17:21:00 83 mm[Hg] [facility] Heart rate 2021-09-07 17:21:00 72 /min [facility] Body temperature 2021-09-07 17:21:00 36.89 Ivone [facility] Respiratory rate 2021-09-07 17:21:00 20 /min [facility] Body height 2021-09-07 17:21:00 165.1 cm [facility] Body weight 2021-09-07 17:21:00 81.874 kg [facility] BMI 2021-09-07 17:21:00 30.04 kg/m2 [facility] Oxygen saturation in Arterial blood by Pulse oximetry 2021-09-07 17:21:00 98 /min [facility] Systolic blood pressure 2021-08-23 14:52:00 127 mm[Hg] [facility] Diastolic blood pressure 2021-08-23 14:52:00 80 mm[Hg] [facility] Heart rate 2021-08-23 14:52:00 93 /min [facility] Body temperature 2021-08-23 14:52:00 38.17 Ivone [facility] Respiratory rate 2021-08-23 14:52:00 17 /min [facility] Body height 2021-08-23 14:52:00 165.1 cm [facility] Body weight 2021-08-23 14:52:00 81.647 kg [facility] BMI 2021-08-23 14:52:00 29.95 kg/m2 [facility] Oxygen saturation in Arterial blood by Pulse oximetry 2021-08-23 14:52:00 100 /min [facility] Procedures Procedure Date / Time Performed Performing Clinician Source LIPASE 2023-12-21 23:31:00 [facility] (17469[facility] (ALB,T.PRO,BILI T,BU/BC,ALT,AST,ALK PHOS) 2023-12-21 23:31:00 Bella, [facility] BASIC METABOLIC PANEL (NA, K, CL, CO2, GLUCOSE, BUN, CREATININE, CA) 2023-12-21 23:31:00 Bella [facility] CBC WITH DIFF 2023-12-21 23:31:00 Bella [facility] URINALYSIS 2023-12-21 23:31:00 Bella [facility] RAPID STREP SCREEN FOR GROUP A 2023-12-21 23:31:00 Bella [facility] INFLUENZA A/B RSV COVID NAAT 2023-12-21 23:31:00 Bella [facility] POCT MOLECULAR STREP 2023-11-17 15:52:00 Unknown, Harpal cisse [facility] POCT SARS-COV-2 ANTIGEN (BINAX NOW) 2023-04-01 00:00:00 Nora Barrera [facility] COMP. METABOLIC PANEL (31747) 2022-09-04 18:47:00 Elda Downs [facility] CBC WITH DIFF 2022-09-04 18:47:00 Elda Downs [facility] COVID-19 (ID NOW RAPID TESTING) 2022-09-04 18:47:00 Elda Downs [facility] CONSENT/REFUSAL FOR DIAGNOSIS AND TREATMENT 2022-09-04 17:29:28 Doctor Unassigned, Cowen [facility] THROAT CULTURE 2022-08-19 19:57:00 Christiano [facility] GC & CHLAMYDIA AMPLIFIED ASSAY 2022-08-19 19:57:[address] [facility] POCT MOLECULAR FLU 2022-08-19 19:36:00 Unknown, Attend ing [facility] POCT SARS-COV-2 ANTIGEN (BINAX NOW) 2022-08-19 19:33:[address] [facility] POCT MOLECULAR STREP 2022-08-19 19:16:00 Unknown, Harpal cisse [facility] POCT MOLECULAR STREP 2022-06-02 17:25:00 Unknown, Atte tanna [facility] XR CHEST 2 VW 2022-05-04 01:26:00 Tracy Babin [facility] RAPID STREP SCREEN FOR GROUP A 2022-05-04 01:21:00 Tracy Babin [facility] CONSENT/REFUSAL FOR DIAGNOSIS AND TREATMENT 2022-05-04 00:54:30 Doctor Unassigned, Cowen [facility] POCT SARS-COV-2 ANTIGEN (BINAX NOW) 2022-04-26 15:04:00 Sathya Vasquez [facility] POCT MOLECULAR FLU 2022-04-26 14:58:00 Unknown, Attend [facility] POCT MOLECULAR STREP 2022-04-26 14:56:00 Unknown[facility] MOLECULAR STREP 2022-04-12 19:25:00 [facility] ASSIGN[facility] OF BENEFITS 2022-04-12 19:01:07 Docto r Unassigned, Cowen [facility] POCT MOLECULAR STREP 2021-12-18 16:01:00 Unknown, [facility] MOLECULAR FLU 2021-12-14 14:42:00 Unknown, Attend [facility] POCT MOLECULAR STREP 2021-09-17 17:37:00 [facility] COVID-19 (MOLECULAR TESTING NUCLEIC ACID AMPLIFICATION) 2021-09-17 17:35:00 [facility] LAB ONLY COVID INTERPRETATION 2021-09-17 17:35:00 Stevie Gregg [facility] POCT MOLECULAR STREP 2021-08-23 14:59:00 Nora Barrera [facility] Encounters Start Date/Time End Date/Time Encounter Type Admission Type Attending Clinicians Care Facility Care Department Encounter ID Source 2024-01-27 00:00:00 2024-01-27 10:40:57 Letter (Out) Robert Guerin [facility] 1.2.840.114 350.1.13.10 4.2.7.2.686 [id number] [facility] 2024-01-27 10:00:00 2024-01-27 10:39:54 Outpatient R PB BELTRAN FAKEHA [facility] [id number] [facility] 2024-01-27 10:00:00 2024-01-27 10:39:54 Office Visit Pb Beltran [facility] 1.840.114 350.1.13.10 4.2.7.2.686 [id number] [facility] 2023-12-21 16:59:00 2023-12-21 19:22:00 Emergency X ADY DURAN [facility] [id number] [facility] 2023-12-21 16:59:00 2023-12-21 19:22:00 Emergency Ady Duran [facility] 1.84.114 350.1.13.10 4.2.7.2.686 [id number] [facility] 2023-11-20 12:40:00 2023-11-20 13:13:22 Outpatient R SATHYA VASQUEZ [facility] [id number] [facility] 2023-11-20 12:40:00 2023-11-20 13:13:22 Urgent Care Sathya Vasquez Unknown, Attending [facility] 1.84.114 350.1.13.10 4.2.7.2.686 [id number] 370 [id number] [facility] 2023-11-20 00:00:00 2023-11-20 13:12:27 Letter (Out) Sathya Vasquez [facility] 1.840.114 350.1.13.10 4.2.7.2.686 [id number] 370 [id number] [facility] 2023-11-17 10:40:00 2023-11-17 11:12:43 Outpatient R NORA BARRERA [facility] [id number] [facility] 2023-11-17 10:40:00 2023-11-17 11:12:43 Urgent Care BruceNora Unknown, Attending [facility] 1.2.840.114 350.1.13.10 4.2.7.2.686 [id number] 370 [id number] [facility] 2023-08-28 00:00:00 2023-08-28 14:07:50 Telephone [facility] 1.2.840.114 350.1.13.10 4.2.7.2.686 [id number] [facility] 2023-08-27 14:45:00 2023-08-27 15:25:38 Cylinder Tester Visit Lab, Ang - Db Unknown, Attending [facility] 1.2.840.114 350.1.13.10 4.2.7.2.686 [id number] [facility] 2023-08-27 14:00:00 2023-08-27 15:02:41 Outpatient R NORA BARRERA [facility] [id number] [facility] 2023-08-27 14:00:00 2023-08-27 15:02:41 Urgent Care BruceNora Unknown, Attending [facility] 1.2.840.114 350.1.13.10 4.2.7.2.686 [id number] [facility] 2023-08-23 20:36:00 2023-08-23 23:18:00 Emergency X Dante [facility] [id number] [facility] 2023-08-23 20:36:00 2023-08-23 23:18:00 Emergency Dante Childress [facility] 1.2840.114 350.1.13.10 4.2.7.2.686 [id number] [facility] 2023-06-10 14:30:00 2023-06-10 14:30:00 Outpatient R ROBERT GUERIN [facility] [id number] [facility] 2023-04-29 08:30:00 2023-04-29 09:05:25 Outpatient R ROBERT GUERIN [facility] [id number] [facility] 2023-04-29 08:30:00 2023-04-29 09:05:25 [facility] [place] 1.2840.114 350.1.13.10 4.2.7.2.686 [id number] [facility] 2023-04-29 00:00:00 2023-04-29 00:00:00 Letter (Out) Robert Guerin [facility] [place] 1.2840.114 350.1.13.10 4.2.7.2.686 [id number] [facility] 2023-04-29 00:00:00 2023-04-29 00:00:00 Letter (Out) [facility] 1.2840.114 350.1.13.10 4.2.7.2.686 [id number] [facility] 2023-04-26 15:45:00 2023-04-26 16:07:28 Outpatient R NORA BARRERA [facility] [id number] [facility] 2023-04-26 15:45:00 2023-04-26 16:07:28 Nurse Visit Nurse, Nickolas Aguirre [facility] Unknown, Attending Bruce [facility] [place] 1.2840.114 350.1.13.10 4.2.7.2.686 [id number] [facility] 2023-04-03 08:00:00 2023-04-03 08:00:00 Outpatient R GISSEL NORRIS [facility] [id number] [facility] 2023-04-01 09:40:00 2023-04-01 10:37:09 Outpatient R CAMPBELL ZIMMERMAN [facility] [id number] [facility] 2023-04-01 09:40:00 2023-04-01 10:00:00 Urgent Care Campbell Zimmerman Unknown, Attending [facility] 1..840.114 350.1.13.10 4.2.7.2.686 [id number] [facility] 2023-04-01 00:00:00 2023-04-01 00:00:00 Letter (Out) Campbell Zimmerman [facility] 1..840.114 350.1.13.10 4.2.7.2.686 [id number] [facility] 2023-01-21 14:15:00 2023-01-21 14:15:00 Outpatient R OVI STILES [facility] [id number] [facility] 2023-01-18 16:00:00 2023-01-18 16:00:00 Outpatient R [facility] [id number] [facility] 2022-12-26 15:30:00 2022-12-26 15:30:00 Outpatient R ROBERT GUERIN [facility] [id number] [facility] 2022-10-18 14:15:00 2022-10-18 14:30:00 Office Visit Ovi Stiles [facility] 1.2.840.114 350.1.13.10 4.2.7.2.686 [id number] [facility] 2022-10-18 14:15:00 2022-10-18 14:15:00 Outpatient R OVI STILES [facility] [id number] [facility] 2022-09-30 17:00:00 2022-09-30 18:35:20 Outpatient R MONROE ALVARADO [facility] [id number] [facility] 2022-09-30 17:00:00 2022-09-30 18:35:20 Urgent Care Monroe Alvarado Unknown, Attending [facility] 1.84.114 350.1.13.10 4.2.7.2.686 [id number] [facility] 2022-09-25 16:00:00 2022-09-25 16:34:10 Outpatient R ROBERT GUERIN [facility] [id number] [facility] 2022-09-25 16:00:00 2022-09-25 16:34:10 Office Visit DayannaRobert simmons [facility] 1.84.114 350.1.13.10 4.2.7.2.686 [id number] [facility] 2022-09-17 14:00:00 2022-09-17 14:31:03 Outpatient R CAMPBELL ZIMMERMAN [facility] [id number] [facility] 2022-09-17 14:00:00 2022-09-17 14:20:00 Urgent Care Campbell Zimmerman Unknown, Attending [facility] [place] 1.84.114 350.1.13.10 4.2.7.2.686 [id number] 370 [id number] [facility] 2022-09-17 00:00:00 2022-09-17 00:00:00 Letter (Out) Campbell Zimmerman [facility] [place] 1.84.114 350.1.13.10 4.2.7.2.686 [id number] [facility] 2022-09-11 13:37:28 2022-09-11 23:59:00 Outpatient R ROBERT GUERIN [facility] [id number] [facility] 2022-09-11 13:37:28 2022-09-11 23:59:00 Hospital [facility] [place] 1.2.840.114 350.1.13.10 4.2.7.2.686 [id number] [facility] 2022-09-11 13:30:00 2022-09-11 13:45:00 Cylinder Tester Visit Lab, Nickolas - [facility] 1.2.840.114 350.1.13.10 4.2.7.2.686 [id number] [facility] 2022-09-11 13:00:00 2022-09-11 13:30:00 Office Visit Robert Guerin [facility] [place] 1.2.840.114 350.1.13.10 4.2.7.2.686 [id number] [facility] 2022-09-11 00:00:00 2022-09-11 00:00:00 Letter (Out) Robert Guerin [facility] 1.2.840.114 350.1.13.10 4.2.7.2.686 [id number] [facility] 2022-09-04 12:33:00 2022-09-04 15:08:00 Emergency X ELDA DOWNS [facility] [id number] [facility] 2022-09-04 12:33:00 2022-09-04 15:08:00 Emergency Elda Downs [facility] 1.2.840.114 350.1.13.10 4.2.7.2.686 [id number] [facility] 2022-08-23 00:00:00 2022-08-23 00:00:00 Telephone Monroe Alvarado [facility] [place] 1..840.114 350.1.13.10 4.2.7.2.686 [id number] [facility] 2022-08-19 14:00:00 2022-08-19 15:03:11 Outpatient R MONROE ALVARADO [facility] [id number] [facility] 2022-08-19 14:00:00 2022-08-19 15:03:11 Urgent Care Monroe Alvarado Unknown, Attending [facility] 1..840.114 350.1.13.10 4.2.7.2.686 [id number] [facility] 2022-07-20 10:40:00 2022-07-20 11:00:00 Urgent Care Sathya Vasquez Unknown, Attending [facility] 1..840.114 350.1.13.10 4.2.7.2.686 [id number] 370 [id number] [facility] 2022-07-20 10:40:00 2022-07-20 10:40:00 Outpatient R SATHYA VASQUEZ [facility] [id number] [facility] 2022-07-20 00:00:00 2022-07-20 00:00:00 Letter (Out) Sathya Vasquez [facility] 1..840.114 350.1.13.10 4.2.7.2.686 [id number] [facility] 2022-07-12 00:00:00 2022-07-12 00:00:00 Letter (Out) Cami Graff [facility] 1.2.840.114 350.1.13.10 4.2.7.2.686 [id number] [facility] 2022-07-11 10:40:00 2022-07-11 11:16:25 Outpatient R BRUCEFLAVIONORA [facility] [id number] [facility] 2022-07-11 10:40:00 2022-07-11 11:16:25 Urgent Care Nora Barrera Unknown, Attending [facility] 1.2.840.114 350.1.13.10 4.2.7.2.686 [id number] [facility] 2022-07-11 00:00:00 2022-07-11 00:00:00 Letter (Out) Bruce Nora [facility] 1.2.840.114 350.1.13.10 4.2.7.2.686 [id number] [facility] 2022-06-29 11:15:00 2022-06-29 11:15:00 Outpatient R DON CORTEZ [facility] [id number] [facility] 2022-06-02 12:00:00 2022-06-02 12:53:47 Outpatient R SATHYA VASQUEZ [facility] [id number] [facility] 2022-06-02 12:00:00 2022-06-02 12:20:00 Urgent Care Sathya Vasquez Unknown, Attending [facility] 1.2.840.114 350.1.13.10 4.2.7.2.686 [id number] [facility] 2022-06-01 09:30:00 2022-06-01 09:39:26 Outpatient R DON CORTEZ [facility] [id number] [facility] 2022-06-01 09:30:00 2022-06-01 09:39:26 Office Visit Don Cortez [facility]. 1.84.114 350.1.13.10 4.2.7.2.686 [id number] [facility] 2022-05-10 14:45:00 2022-05-10 15:05:00 Urgent Care Sathya Vasquez, Attending [facility] 1.84.114 350.1.13.10 4.2.7.2.686 [id number] [facility] 2022-05-10 14:45:00 2022-05-10 14:45:00 Outpatient R SATHYA VASQUEZ [facility] [id number] [facility] 2022-05-10 00:00:00 2022-05-10 00:00:00 Letter (Out) Sathya Vasquez [facility] 1.84.114 350.1.13.10 4.2.7.2.686 [id number] [facility] 2022-05-03 20:02:00 2022-05-03 21:35:00 Emergency X TRACY BABIN [facility] [id number] [facility] 2022-05-03 20:02:00 2022-05-03 21:35:00 Emergency Tracy Babin [facility] 1.84.114 350.1.13.10 4.2.7.2.686 [id number] [facility] 2022-04-30 00:00:00 2022-04-30 00:00:00 Letter (Out) PedroSathya [facility] 1.84.114 350.1.13.10 4.2.7.2.686 [id number] [facility] 2022-04-26 09:40:00 2022-04-26 10:00:00 Urgent Care Sathya Vasquez Unknown, Attending [facility] 1..840.114 350.1.13.10 4.2.7.2.686 [id number] [facility] 2022-04-26 09:40:00 2022-04-26 09:40:00 Outpatient R SATHYA VASQUEZ [facility] [id number] [facility] 2022-04-12 12:40:00 2022-04-12 13:00:00 Urgent Care Sathya Vasquez Unknown, Attending [facility] 1.840.114 350.1.13.10 4.2.7.2.686 [id number] [facility] 2022-04-12 12:40:00 2022-04-12 12:40:00 Outpatient R MARIAMSATHYA Jordan [facility] [id number] [facility] 2022-04-12 00:00:00 2022-04-12 00:00:00 Orders Only Doctor Unassigned, Cowen [facility] 1.840.114 350.1.13.10 4.2.7.2.686 [id number] [facility] 2022-04-12 00:00:00 2022-04-12 00:00:00 Letter (Out) JonathanGabriela keysfortino [facility] 1.840.114 350.1.13.10 4.2.7.2.686 [id number] [facility] 2022-01-16 15:15:00 2022-01-16 15:15:00 Outpatient R MARIMAR JEWELL [facility] [id number] [facility] 2021-12-18 09:20:00 2021-12-18 10:35:00 Outpatient R NORA BARRERA [facility] [id number] [facility] 2021-12-18 09:20:00 2021-12-18 10:35:00 Urgent Care Nora Barrera Unknown, Attending [facility] 1.840.114 350.1.13.10 4.2.7.2.686 [id number] 370 [id number] [facility] 2021-12-18 00:00:00 2021-12-18 00:00:00 Letter (Out) Nora Barrera [facility] 1.2114 350.1.13.10 4.2.7.2.686 [id number] [facility] 2021-12-14 09:20:00 2021-12-14 10:05:42 Outpatient R MITALI PHILLIPS [facility] [id number] [facility] 2021-12-14 09:20:00 2021-12-14 09:40:00 Urgent Care Mitali Phillips, Attending [facility] 1.114 350.1.13.10 4.2.7.2.686 [id number] 370 [id number] [facility] 2021-12-14 00:00:00 2021-12-14 00:00:00 Letter (Out) [facility] [facility] 1.114 350.1.13.10 4.2.7.2.686 [id number] 370 [id number] [facility] 2021-09-18 00:00:00 2021-09-18 00:00:00 Letter (Out) Devorah Zacarias [facility] 1..114 350.1.13.10 4.2.7.2.686 [id number] [facility] 2021-09-17 12:20:00 2021-09-17 13:28:37 Outpatient R STEVIE GREGG [facility] [id number] [facility] 2021-09-17 12:20:00 2021-09-17 13:28:37 [facility] 1.2.840.114 350.1.13.10 4.2.7.2.686 [id number] [facility] 2021-09-07 12:00:00 2021-09-07 12:20:00 Urgent Care Mitali Phillips [facility] MED[facility] OFFICE BUILDING 1.2.840.114 350.1.13.10 4.2.7.2.686 [id number] [facility] 2021-09-07 12:00:00 2021-09-07 12:00:00 Outpatient R MITALI PHILLIPS [facility] [id number] [facility] 2021-08-23 09:40:00 2021-08-23 10:09:29 Outpatient R NORA BARRERA [facility] [id number] [facility] 2021-08-23 09:40:00 2021-08-23 10:09:29 [facility] 1.2.840.114 350.1.13.10 4.2.7.2.686 [id number] 370 [id number] [facility] 2021-08-23 09:40:00 2021-08-23 10:09:29 Outpatient R NORA BARRERA [facility] [id number] [facility] 2021-05-14 16:00:00 2021-05-14 16:04:22 Outpatient R MONROE ALVARADO [facility] [id number] [facility] 2021-05-14 16:00:00 2021-05-14 16:04:22 Urgent Care Green [facility] MEDICAL OFFICE BUILDING 1..840.114 350.1.13.10 4.2.7.2.686 [id number] [facility] 2021-04-29 09:00:00 2021-04-29 09:14:21 Outpatient Sharon [facility] [id number] [facility] 2021-04-29 00:00:00 2021-04-29 00:00:00 Orders Only Doctor Unassigned, Cowen [facility] 1..840.114 350.1.13.10 4.2.7.2.686 [id number] [id number] [facility] 2021-02-26 22:03:00 2021-02-26 22:10:00 Emergency X [facility] [id number] [facility] 2021-02-26 22:03:00 2021-02-26 22:10:00 Emergency Sathya Vasquez [facility] 1..840.114 350.1.13.10 4.2.7.2.686 [id number] [facility] 2021-02-20 12:45:00 2021-02-20 13:00:00 Laboratory Only Only, Ang Db Test Thanh [facility] 1..840.114 350.1.13.10 4.2.7.2.686 [id number] [facility] 2021-02-20 12:45:00 2021-02-20 12:45:00 Outpatient R THANH [facility] [id number] [facility] 2021-02-20 00:00:00 2021-02-20 00:00:00 Orders Only Doctor Unassigned, Cowen [facility] 1.2.840.114 350.1.13.10 4.2.7.2.686 [id number] [id number] [facility] 2021-02-17 00:00:00 2021-02-17 00:00:00 Letter (Out) DeannDevorah parks [facility] 1.2840.114 350.1.13.10 4.2.7.2.686 [id number] [facility] 2021-02-15 16:15:00 2021-02-15 16:30:00 Laboratory Only Only, Ang Db Test [facility] 1.840.114 350.1.13.10 4.2.7.2.686 [id number] [facility] 2021-02-15 16:15:00 2021-02-15 16:15:00 Outpatient Sharon [facility] [id number] [facility] 2020-05-25 16:00:00 2020-05-25 16:07:24 Outpatient Sharon [facility] [id number] [facility] 2020-05-25 16:00:00 2020-05-25 16:00:00 Outpatient Sharon SWAIN [facility] [id number] [facility] 2020-05-04 16:10:00 2020-05-04 15:56:54 Outpatient Sharon SWAIN [facility] [id number] [facility] 2020-03-19 00:00:00 2020-03-19 00:00:00 Letter (Out) Chin Walton [facility] 1.2840.114 350.1.13.10 4.2.7.2.686 [id number] [facility] 2020-03-18 17:12:54 2020-03-18 17:32:54 Laboratory Only Lab, Adc Fam Mitali Moore [facility] Office Building One .114 350.1.13.10 4.2.7.2.686 [id number] [facility] 2020-03-18 17:20:00 2020-03-18 17:20:00 Outpatient R [facility] [id number] [facility] 2020-03-18 17:20:00 2020-03-18 17:20:00 Outpatient R [facility] [id number] [facility] 2020-03-13 00:00:00 2020-03-13 00:00:00 Letter (Out) Chin Walton [facility] 1.114 350.1.13.10 4.2.7.2.686 [id number] [facility] 2020-03-11 15:40:00 2020-03-11 15:40:00 Outpatient R AREN PASCUAL [facility] [id number] [facility] 2020-03-11 15:06:51 2020-03-11 15:26:51 Laboratory Only Lab, Adc [facility] Pob I Sophiehortencia [facility] Office Building One .114 350.1.13.10 4.2.7.2.686 [id number] [facility] 2020-02-15 00:00:00 2020-02-15 00:00:00 Letter (Out) Devorah Zacarias [facility] 1.114 350.1.13.10 4.2.7.2.686 [id number] [facility] 2020-02-15 00:00:00 2020-02-15 00:00:00 Patient Secure Msg Doctor Unassigned, Cowen [facility] 1..114 350.1.13.10 4.2.7.2.686 [id number] [id number] [facility] 2020-02-14 15:41:47 2020-02-14 15:56:47 Nurse Visit Nurse, Ramana [facility] Unknown, Attending [facility] 1.2.840.114 350.1.13.10 4.2.7.2.686 [id number] [facility] 2020-02-14 15:45:00 2020-02-14 15:45:00 Outpatient R UNKNOWN, ATTENDING [facility] [id number] [facility] 2019-05-13 13:40:00 2019-05-13 13:40:00 Outpatient R TACHO CAIN [facility] [id number] [facility] 2019-05-11 00:00:00 2019-05-11 00:00:00 Telephone Lolly Michelle [facility] 1.2.840.114 350.1.13.10 4.2.7.2.686 [id number] [facility] 2019-05-11 00:00:00 2019-05-11 00:00:00 Telephone Lolly Michelle [facility] 1.2.840.114 350.1.13.10 4.2.7.2.686 [id number] 2019-05-06 00:00:00 2019-05-06 00:00:00 Orders Only Doctor Unassigned, Cowen [facility] 1.2.840.114 350.1.13.10 4.2.7.2.686 [id number] [id number] [facility] 2019-05-06 00:00:00 2019-05-06 00:00:00 Orders Only Doctor Unassigned, Cowen [facility] 1.2.840.114 350.1.13.10 4.2.7.2.686 [id number] [id number] 2019-05-04 14:51:49 2019-05-04 16:20:27 Ancillary Visit Lolly Michelle Craig L [facility] Building 1.2.840.114 350.1.13.10 4.2.7.2.686 [id number] [facility] 2019-05-04 14:51:49 2019-05-04 16:20:27 Ancillary Visit Lolly Michelle [facility] nal Building 1.2.840.114 350.1.13.10 4.2.7.2.686 [id number] 2019-04-23 14:16:23 2019-04-23 16:08:45 Ancillary Visit Miguel Angel Lolly Anastasiya Tacho Cain [facility] Building 1.2.840.114 350.1.13.10 4.2.7.2.686 [id number] [facility] 2019-04-23 14:16:23 2019-04-23 16:08:45 Ancillary Visit Lolly Michelle [facility] Building 1.2.840.114 350.1.13.10 4.2.7.2.686 [id number] 2019-04-22 14:24:40 2019-04-22 15:14:05 Ancillary Visit Guerline Navarrete Craig L [facility] Building 1.2.840.114 350.1.13.10 4.2.7.2.686 [id number] [facility] 2019-04-22 14:24:40 2019-04-22 15:14:05 Ancillary Visit Guerline Navarrete [facility] Building 1.2.840.114 350.1.13.10 4.2.7.2.686 [id number] 2019-04-16 15:20:00 2019-04-16 15:20:00 Outpatient R TACHO CAIN [facility] [id number] [facility] 2019-04-14 16:16:46 2019-04-14 16:56:46 Ancillary Visit Nathan Michellelanden Anastasiya Tacho [facility] 1.2.840.114 350.1.13.10 4.2.7.2.686 [id number] [facility] 2019-04-14 16:16:46 2019-04-14 16:56:46 Ancillary Visit [facility] 1.2.840.114 350.1.13.10 4.2.7.2.686 [id number] 2019-04-09 16:19:26 2019-04-09 17:01:53 Ancillary Visit Guerline Navarrete Tacho Cain [facility] nal Building 1.2.840.114 350.1.13.10 4.2.7.2.686 [id number] [facility] 2019-04-09 16:19:26 2019-04-09 17:01:53 [facility] 1.2.840.114 350.1.13.10 4.2.7.2.686 [id number] 2019-04-09 16:20:00 2019-04-09 16:20:00 Outpatient R TACHO CAIN [facility] [id number] [facility] 2019-03-31 08:04:37 2019-03-31 15:11:26 Ancillary Visit Nathan MichelleTacho Alonso [facility] nal Building 1.2.840.114 350.1.13.10 4.2.7.2.686 [id number] [facility] 2019-03-31 08:04:37 2019-03-31 15:11:26 Ancillary Visit MichelleNathan montanolanden [facility]asi[facility] 1.2.840.114 350.1.13.10 4.2.7.2.686 [id number] 2019-03-31 00:00:00 2019-03-31 00:00:00 Orders Only Doctor Unassigned, Cowen [facility] 1.2.840.114 350.1.13.10 4.2.7.2.686 [id number] [id number] 2019-03-31 00:00:00 2019-03-31 00:00:00 Orders Only Doctor Unassigned, Cowen [facility] 1.2.840.114 350.1.13.10 4.2.7.2.686 [id number] [id number] [facility] 2018-08-28 00:00:00 2018-08-28 00:00:00 Orders Only Doctor Unassigned, Cowen [facility] 1.2.840.114 350.1.13.10 4.2.7.2.686 [id number] [id number] 2018-08-28 00:00:00 2018-08-28 00:00:00 Orders Only Doctor Unassigned, Cowen [facility] 1.2.840.114 350.1.13.10 4.2.7.2.686 [id number] [id number] [facility] Results Test Description Test Time Test Comments Results Result Co mments Source [facility] (NA, K, CL, CO2, GLUCOSE, BUN, CREATININE, CA)2023-12-22 00:27:27* Test Item Value Reference Range Interpretation Comme nts NA (test code = 6747341024) 136 mmol/L 135-145 K (test code = 8602552040) 3.8 mmol/L 3.5-5.0 CL (test code = 9432517226) 101 mmol/L 98-108 CO2 TOTAL (test code = 6111595638) 26 mmol/L 23-31 AGAP (test code = 5240540007) 9 2-16 BUN (test code = 3638702164) 9 mg/dL 7-23 GLUCOSE (test code = 0646497258) 93 mg/dL 70-110 CREATININE (test code = 2160-0) 0.69 mg/dL 0.60-1.25 CALCIUM (test code = 2696736255) 9.1 mg/dL 8.6-10.6 eGFR (test code = 74132-1) 135.0 mL/min/1.73m2 CKD-EPI eGFR (20 21). Assuming creatinine has been stable day-to-day for at least three months, the eGFR indicates Category G1 (>= 90 mL/min/1.73 m2) [facility] (42359) (ALB,T.PRO,BILI T,BU/BC,ALT,AST,ALK PHOS)2023-12-22 00:27:27* Test Item Value Reference Range Interpretation Comme nts TOTAL BILI (test code = 8251857210) 0.3 mg/dL 0.1-1.1 BILI UNCON (test code = 5434321141) 0.4 mg/dL 0.1-1.1 BILI CONJ (test code = 6579876759) 0.0 mg/dL 0.0-0.3 T PROTEIN (test code = 5172883242) 8.0 g/dL 6.3-8.2 ALBUMIN (test code = 0037316987) 4.8 g/dL 3.5-5.0 ALK PHOS (test code = 8878982415) 47 U/L 34-122 ALTv (test code = 1742-6) 24 U/L 5-50 AST(SGOT) (test code = 9304804776) 21 U/L 13-40 Lab Interpretation (test cod e = 73558-8) Normal [facility]2024-[facility]-10 00:27:07* Test Item Value Reference Range Interpretation Comme nts LIPASE (test code = 3037847320) 23 U/L 0-220 Lab Interpretation (test cod e = 51547-5) Normal [facility] MOLECULAR [id number] 15:59:55* Test Item Value Reference Range Interpretation Comme nts POCT Molecular Strep (test c ode = 50363-4) Negative Negative Lab Interpretation (test cod e = 10049-1) Normal [facility] SARS-COV-2 ANTIGEN (BINAX NOW)2023-04-01 16:23:00* Test Item Value Reference Range Interpretation Comme nts POCT SARS-COV-2 ANTIGEN (alondra t code = 46366-8) Not Detected Not Detected On board controls acceptable with C Line (test code = 3574) Yes Lab Interpretation (test cod e = 97413-5) Normal [facility]. METABOLIC PANEL (36597)2022-09-04 19:19:31* Test Item Value Reference Range Interpretation Comme nts NA (test code = 7940225892) 139 mmol/L 135-145 K (test code = 4004764159) 3.3 mmol/L 3.5-5.0 L CL (test code = 9350523454) 99 mmol/L 98-108 CO2 TOTAL (test code = 4220480800) 28 mmol/L 23-31 AGAP (test code = 0919803506) 12 2-16 BUN (test code = 3350993678) 8 mg/dL 7-23 GLUCOSE (test code = 5785328899) 92 mg/dL 70-110 CREATININE (test code = 7574802755) 0.73 mg/dL 0.60-1.25 TOTAL BILI (test code = 4538374356) 0.9 mg/dL 0.1-1.1 CALCIUM (test code = 4359248713) 9.5 mg/dL 8.6-10.6 T PROTEIN (test code = 9406142309) 9.3 g/dL 6.3-8.2 H ALBUMIN (test code = 2469595326) 4.6 g/dL 3.5-5.0 ALK PHOS (test code = 3992189554) 50 U/L 34-122 ALTv (test code = 1742-6) 85 U/L 5-50 H AST(SGOT) (test code = 9407388154) 44 U/L 13-40 H eGFR (test code = 7440260376) 137.0 mL/min/1.73m2 YONY (test code = YONY) [...] imaging tests). Lab Interpretation (test code = 47581-5) Abnormal [facility] WITH [id number] 19:07:31* Test Item Value Reference Range Interpretation Comme nts WBC (test code = 6690-2) 8.23 See_Comment [Jotky] The system which generated this result transmitted reference range: 4.20 - 10.70 10*3/?L. The reference range was not used to interpret this result as normal/abnormal. RBC (test code = 789-8) 5.17 See_Comment [Jotky] The system which generated this result transmitted [...] 34.3 g/dL 31.2-35.0 RDW-SD (test code = 49722-4) 39.3 fL 38.5-51.6 RDW-CV (test code = 788-0) 13.1 % 12.1-15.4 PLT (test code = 777-3) 490 See_Comment H [Automated messa ge] The system which generated this result transmitted reference range: 150 - 328 10*3/?L. The reference range was not used to interpret this result as normal/abnormal. MPV (test code = 76373-4) 9.2 fL 9.8-13.0 L NRBC/100 WBC (test code = 3412552649) 0.0 See_Comment [Automated StatsMix ssage] The system which generated this result transmitted reference range: 0.0 - 10.0 /100 WBCs. The reference range was not used to interpret this result as normal/abnormal. NRBC x10^3 (test code = 9433452101) See_Comment [Automated messa ge] The system which generated this result transmitted reference range: 10*3/?L. The reference range was not used to interpret this result as normal/abnormal. GRAN MAT (NEUT) % (test code = 770-8) 61.6 % IMM GRAN % (test code = 1307584643) 0.10 % LYMPH % (test code = 736-9) 31.0 % MONO % (test code = 5905-5) 5.5 % EOS % (test code = 713-8) 1.2 % BASO % (test code = 706-2) 0.6 % GRAN MAT x10^3(ANC) (test code = 5136275281) 5.07 10*3/uL 1.99-6.95 IMM GRAN x10^3 (test code = 4147514555) 0.00-0.06 LYMPH x10^3 (test code = 731-0) 2.55 10*3/uL 1.09-3.23 MONO x10^3 (test code = 742-7) 0.45 10*3/uL 0.36-1.02 EOS x10^3 (test code = 711-2) 0.10 10*3/uL 0.06-0.53 BASO x10^3 (test code = 704-7) 0.05 10*3/uL 0.01-0.09 Lab Interpretation (test code = 76556-5) Abnormal [facility] MOLECULAR [id number] 19:48:00* Test Item Value Reference Range Interpretation Comme nts POCT Molecular FluA (test co de = 82910-5) Negative Negative POCT Molecular FluB (test co de = 44570-8) Negative Negative Lab Interpretation (test cod e = 48287-0) Normal [facility] MOLECULAR [id number] 19:48:00* Test Item Value Reference Range Interpretation Comme nts POCT Molecular FluA (test co de = 01106-4) Negative Negative POCT Molecular FluB (test co de = 90254-1) Negative Negative Lab Interpretation (test cod e = 32749-4) Normal [facility] MOLECULAR [id number] 19:48:00* Test Item Value Reference Range Interpretation Comme nts POCT Molecular FluA (test co de = 17213-2) Negative Negative POCT Molecular FluB (test co de = 05005-4) Negative Negative Lab Interpretation (test cod e = 58430-1) Normal [facility] MOLECULAR [id number] 19:48:00* Test Item Value Reference Range Interpretation Comme nts POCT Molecular FluA (test co de = 95814-9) Negative Negative POCT Molecular FluB (test co de = 31865-8) Negative Negative Lab Interpretation (test cod e = 41861-3) Normal [facility] MOLECULAR [id number] 19:48:00* Test Item Value Reference Range Interpretation Comme nts POCT Molecular FluA (test co de = 63150-4) Negative Negative POCT Molecular FluB (test co de = 50682-7) Negative Negative Lab Interpretation (test cod e = 19162-3) Normal [facility] SARS-COV-2 ANTIGEN (BINAX NOW)2022-08-19 19:33:00* Test Item Value Reference Range Interpretation Comme nts POCT SARS-COV-2 ANTIGEN (alondra t code = 17818-0) Not Detected Not Detected On board controls acceptable with C Line (test code = 3574) Yes Lab Interpretation (test cod e = 52081-8) Normal [facility] SARS-COV-2 ANTIGEN (BINAX NOW)2022-08-19 19:33:00* Test Item Value Reference Range Interpretation Comme nts POCT SARS-COV-2 ANTIGEN (alondra t code = 49306-5) Not Detected Not Detected On board controls acceptable with C Line (test code = 3574) Yes Lab Interpretation (test cod e = 13379-4) Normal [facility] SARS-COV-2 ANTIGEN (BINAX NOW)2022-08-19 19:33:00* Test Item Value Reference Range Interpretation Comme nts POCT SARS-COV-2 ANTIGEN (alondra t code = 89116-1) Not Detected Not Detected On board controls acceptable with C Line (test code = 3574) Yes Lab Interpretation (test cod e = 09215-8) [facility] SARS-COV-2 ANTIGEN (BINAX NOW)2022-08-19 19:33:00* Test Item Value Reference Range Interpretation Comme nts POCT SARS-COV-2 ANTIGEN (alondra t code = 47026-6) Not Detected Not Detected On board controls acceptable with C Line (test code = 3574) Yes Lab Interpretation (test cod e = 54424-9) [facility] SARS-COV-2 ANTIGEN (BINAX NOW)2022-08-19 19:33:00* Test Item Value Reference Range Interpretation Comme nts POCT SARS-COV-2 ANTIGEN (alondra t code = 78193-6) Not Detected Not Detected On board controls acceptable with C Line (test code = 3574) Yes Lab Interpretation (test cod e = 32659-7) Normal [facility] MOLECULAR [id number] 19:24:19* Test Item Value Reference Range Interpretation Comme nts POCT Molecular Strep (test c ode = 65458-5) Negative Negative Lab Interpretation (test cod e = 56463-5) [facility] MOLECULAR [id number] 19:24:19* Test Item Value Reference Range Interpretation Comme nts POCT Molecular Strep (test c ode = 50694-3) Negative Negative Lab Interpretation (test cod e = 75640-9) Normal [facility] MOLECULAR [id number] 19:24:19* Test Item Value Reference Range Interpretation Comme nts POCT Molecular Strep (test c ode = 62939-8) Negative Negative Lab Interpretation (test cod e = 51532-5) Normal [facility] MOLECULAR [id number] 19:24:19* Test Item Value Reference Range Interpretation Comme nts POCT Molecular Strep (test c ode = 02885-8) Negative Negative Lab Interpretation (test cod e = 60704-0) Normal [facility] MOLECULAR [id number] 19:24:19* Test Item Value Reference Range Interpretation Comme nts POCT Molecular Strep (test c ode = 73092-0) Negative Negative Lab Interpretation (test cod e = 20391-5) Normal [facility] MOLECULAR [id number] 17:32:56* Test Item Value Reference Range Interpretation Comme nts POCT Molecular Strep (test c ode = 38391-5) Negative Negative Lab Interpretation (test cod e = 75280-1) Normal [facility] MOLECULAR [id number] 15:09:53* Test Item Value Reference Range Interpretation Comme nts POCT Molecular FluA (test co de = 48898-2) Negative Negative POCT Molecular FluB (test co de = 41624-0) Negative Negative Lab Interpretation (test cod e = 94540-7) Normal [facility] MOLECULAR [id number] 15:04:19* Test Item Value Reference Range Interpretation Comme nts POCT Molecular Strep (test c ode = 59613-9) Negative Negative Lab Interpretation (test cod e = 24926-1) Normal [facility] SARS-COV-2 ANTIGEN (BINAX NOW)2022-04-26 15:04:00* Test Item Value Reference Range Interpretation Comme nts POCT SARS-COV-2 ANTIGEN (alondra t code = 48504-6) Positive Not Detected A On board controls acceptable with C Line (test code = 3574) Yes Lab Interpretation (test cod e = 53354-2) Abnormal [facility] MOLECULAR [id number] 19:30:25* Test Item Value Reference Range Interpretation Comme nts POCT Molecular Strep (test c ode = 59077-4) Positive Negative A Lab Interpretation (test cod e = 75640-4) Abnormal [facility] MOLECULAR [id number] 16:10:06* Test Item Value Reference Range Interpretation Comme nts POCT Molecular Strep (test c ode = 78644-4) Negative Negative Lab Interpretation (test cod e = 97648-5) Normal [facility] MOLECULAR [id number] 14:45:48* Test Item Value Reference Range Interpretation Comme nts POCT Molecular FluA (test co de = 81647-8) Positive Negative A Lab Interpretation (test cod e = 35049-1) Abnormal [facility] MOLECULAR [id number] 17:48:29* Test Item Value Reference Range Interpretation Comme nts POCT Molecular Strep (test c ode = 84489-4) Negative Negative Lab Interpretation (test cod e = 04635-5) Normal [facility] MOLECULAR [id number] 15:04:52* Test Item Value Reference Range Interpretation Comme nts POCT Molecular Strep (test c ode = 11938-3) Positive Negative A Lab Interpretation (test cod e = 68728-0) Abnormal [facility]"
[2024-02-14] MEDS ORDERED: KETAMINE HCL IN 0.9 % NACL 50 MG/5 ML SYRINGE IV ONE ×2 (18:15→18:33)
[2024-02-14] MEDS ORDERED: NA CHLORIDE 0.9% 1,000 ML ONE (18:21)
[2024-02-14 18:41] LABS: Absolute Basophils 0.1 K/uL (0-0.5); Absolute Eosinophils 0.1 K/uL (0-0.5); Absolute Lymphocytes (CBC) 2.1 K/uL (0.7-4.9); Absolute Monocytes 0.7 K/uL (0.1-1.3); Basophils % 0.6 % (0-1.3); Eosinophils % 1.2 % (0-4.4); Hematocrit 45.3 % (39.6-49.0); Hemoglobin 15.2 g/dL (13.6-17.9); Lymphocytes % 23.8 % (15.3-44.8); MCH 28.8 pg (27.0-35.0); MCHC 33.5 g/dL (32.0-36.0); MCV 85.8 fL (80-100); MPV 7.6 fL (7.6-11.3); Monocytes % 7.5 % (3.3-12.3); Neutrophils % 66.9 % (41.7-73.7); Nucleated Red Blood Cells % 0.1 % (0-0); Platelets 370 thou/uL (152-406); RBC Red Blood Cell Count 5.28 M/uL (4.33-5.43); Red Cell Distribution Width 14.1 % (12.1-15.2)
[2024-02-14 18:50] LABS: Specific Gravity 1.013 (1.005-1.030); Sqamous Epithelial None Seen /HPF (None Seen); Urine Bacteria None Seen /HPF (<20); Urine Bilirubin NEGATIVE (Negative); Urine Blood Negative (Negative); Urine Clarity Clear (Clear); Urine Color Light-Yellow (Yellow); Urine Culture Reflex Order NOT NEEDED; Urine Glucose NEGATIVE (Negative); Urine Ketones NEGATIVE (Negative); Urine Microscopic Reflex YN ORDER UMIC; Urine Mucus Slight /HPF (None Seen); Urine Nitrite NEGATIVE (Negative); Urine Protein NEGATIVE (Negative); Urine RBC <5 /HPF (None Seen); Urine Urobilinogen Normal (Normal); Urine WBC <5 /HPF (<5); Urine WBC Clump Rare /HPF (None Seen); Urine pH 6.5 (5.0-7.0)
[2024-02-14 18:52] LABS: PT Prothrombin Time 11.4 SECONDS (9.4-12.5); PTT, Activated Partial Thromb 31.8 SECONDS (24.3-36.9); Protime INR 1.02
[2024-02-14 18:53] LABS: Barbiturates NEGATIVE (NEGATIVE); Benzodiazepines NEGATIVE (NEGATIVE); Cocaine NEGATIVE (NEGATIVE); METHAMPHETAM NEGATIVE (NEGATIVE); Methadone NEGATIVE (NEGATIVE); Opiates NEGATIVE (NEGATIVE); Phencyclidine NEGATIVE (NEGATIVE); THC Cannibis NEGATIVE (NEGATIVE)
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
[2024-02-14 19:09] LABS: ALT/SGPT 34 U/L (16-61); Albumin 4.1 g/dL (3.4-5.0); Albumin/Globulin Ratio 0.9 (1.1-1.8); Alkaline Phosphatase 54 U/L (45-117); Anion Gap 15.1 mEq/L (5.0-15.0); BUN Blood Urea Nitrogen 8 mg/dL (7-18); Bicarbonate 20 mEq/L (21-32); Bilirubin Total 0.2 mg/dL (0.2-1.0); Globulin 4.4 g/dL (2.3-3.5); Glomerular Filtration Rate 128 ml/min (=/>90); Glucose Level 90 mg/dL (74-106); Protein, Total 8.5 g/dL (6.4-8.2); Sodium Level 139 mEq/L (136-145)
[2024-02-14 19:10] LABS: AST/SGOT 22 U/L (15-37); Bilirubin Direct < 0.2 mg/dL (0-0.2); Potassium 3.1 mEq/L (3.5-5.1)
[2024-02-14] MEDS ORDERED: LORazepam 2 MG/ML VIAL ONE (20:33)
[2024-02-14] MEDS ORDERED: NS KCL 20MEQ 1,000 ML IV ONE (20:34)
[2024-02-14] MEDS ORDERED: ZIPRASIDONE MESYLA 20 MG/VIAL IM ONE (20:34)
[2024-02-14] MEDS ORDERED: WATER FOR INJ,STERILE 10 ML ONE (20:34)
[2024-02-14] MEDS ORDERED: KCL 20 MEQ/100 mL IVPB 100 ML IV ONE (22:19)
[2024-02-14] MEDS ORDERED: THIAMINE 200 MG/2 ML INJ ONE (22:24)
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
--- NOTE | 2024-02-15 04:47 | ER ---
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 Destructive Restraint: Restraint Order: Initial/Renewal: Initial cm10 order obtained. February 14, 2024 at 18:30 Staff present during the initiation of restraint: RENATA SULLIVAN, SHOAIB JIMÉNEZ, KARI GRAF. Indications for initiating restraints: Observed actions/behavior: Harming self/others: PT BEING AGGRESSIVE TOWARDS STAFF AND HIT A STAFF MEMBER. PT REMOVING ALL MONITORING EQUIPMENT. impaired decision making. Less restrictive interventions attempted: Reoriented. verbal de-escalation. decrease environmental stimuli. medicated for pain/anxiety. Alternative interventions: Ineffective. Clinical Justification: Violent/self destructing behavior impacts therapeutic environment. Poses a serious danger to the physical safety of self \T\ others. Soft wrist restraint (Right) started. Soft wrist restraint (Left) started. Soft ankle restraint (Right) started. Soft ankle restraint (Left) started. Family Notification/Education: The following persons were notified of restraint use: FAMILY NOT AVAILABLE.. Education provided to patient and family/significant other/legally authorized front office representative regarding the behaviors that necessitated restraint application and the behaviors that the patient shall demonstrate to be released. cm10 21:07 21:00 Violent/Self Destructive Restraint: Observed actions/behavior: Verbally cm10 aggressive/threatening AGGRESSIVE TOWARDS STAFF. unable to follow instructions, impaired decision making, Less restrictive alternatives attempted: verbal de-escalation performed, reoriented to location, medicated for pain/anxiety, Alternative interventions: Ineffective. Clinical justification for continued use: Violent/self destructing behavior impacts therapeutic environment. Poses a serious danger to the physical safety of self \T\ others. Mental status: agitated/restless. Monitoring: Respiratory status Respirations even/unlabored, no distress. Circulation: Skin warm and dry, capillary refill WNL. Skin integrity: Intact, healthy with good turgor. No injuries due to Restraints noted. Readiness for Discontinue: Criteria not met. Patient still violent/self destructive and Alternative interventions still ineffective. Restraint status: Soft wrist restraint (Right) Soft wrist restraint (Left) Soft ankle restraint (Right) Soft ankle restraint (Left) cm10 21:07 18:45 Violent/Self Destructive Restraint: Observed actions/behavior: Verbally cm10 aggressive/threatening AGGRESSIVE TOWARDS STAFF. unable to follow instructions, impaired decision making, Less restrictive alternatives attempted: verbal de-escalation performed, reoriented to location, medications evaluated, Alternative interventions: Ineffective. Clinical justification for continued use: Violent/self destructing behavior impacts therapeutic environment. Poses a serious danger to the physical safety of self \T\ others. Mental status: agitated/restless. Monitoring: Respiratory status Respirations even/unlabored, no distress. Circulation: Skin warm and dry, capillary refill WNL. Skin integrity: Intact, healthy with good turgor. No injuries due to Restraints noted. Readiness for Discontinue: Criteria not met. Patient still violent/self destructive and Alternative interventions still ineffective. Restraint status: Soft wrist restraint (Right) Soft wrist restraint (Left) Soft ankle restraint (Right) Soft ankle restraint (Left) cm10 21:32 20:15 Violent/Self Destructive Restraint: cm10 cm10 21:38 20:30 Violent/Self Destructive Restraint: cm10 cm10 21:40 20:45 Violent/Self Destructive Restraint: cm10 cm10 21:58 21:57 Reassessment: PT SLEEPING AT THIS TIME. RESPIRATIONS EVEN AND UNLABORED. cm10 RESTRAINTS DISCONTINUED. cm10
[2024-02-15 05:39] VITALS: BP 130/69
[2024-02-15 05:41] VITALS: O2SAT 98
--- NOTE | 2024-02-24 11:20 | EKG ---
Test Date: 2024-02-14 Test Time: 21:40:21 Group Supervisor Yard: AF MEASUREMENT RESULTS: Intervals: Rate: 95 SC: 190 QRSD: 96 QT: 360 QTc: 452 [place]: P: 57 SC: 190 QRS: 35 T: 27 INTERPRETIVE STATEMENTS: Normal sinus rhythm Normal ECG Compared to ECG 05/06/2022 01:57:15 No significant changes Electronically Signed On 02-24-24 11:06:12 SENIOR ACCOUNTING SPECIALIST by Jimbo Hoffman
== END 2024-02-15 05:07 | disposition home or self-care (01) ==
LOC: ER 18:07
DX: F10.129 Alcohol abuse with intoxication, unspecified (principal); F55.8 Abuse of other non-psychoactive substances; E87.6 Hypokalemia; V49.40XA Driver injured in collision with unspecified motor vehicles in traffic accident, initial encounter
CPT/HCPCS: 36415; 51702; 70450; 71260; 72125; 74177; 80048; 80076; 80143; 80179; 80307; 81001; 82077; 85025; 85610; 85730; 93005; 96372; 99285; J3411; J3480; J3486; J7030

== ENCOUNTER 2024-02-15 07:40 | Emergency (ER) | payer OTHER, SELFPAY ==
--- OUTSIDE RECORDS SUMMARY | 2024-02-15 07:45 | XMS REPORT | Continuity of Care Document ---
Author Name Unknown Address [address] [place] [address] [facility] Address [address] [facility] [address] [place] [address] Care Team Providers Care Theatrical Variety Agent Name Role Phone ROBERT GUERIN Primary Care Physician Unavailab Robert Rothman Attending Clinician [phone] PB BELTRAN Attending Clinician Unavailable PB BELTRAN Attending Clinician Unavailable Pb Beltran MD Attending Clinician [phone] ADY DURAN Attending Clinician Unavailable Ady Borrego Attending Clinician [phone] SATHYA VASQUEZ Attending Clinician Unavailable Sathya Sherwood Attending Clinician [phone] Unknown, Attending Attending Clinician Unavailab NORA Allen Attending Clinician Unavailable Nora Barrera MD Attending Clinician [phone] Nora Barrera MD Attending Clinician [phone] Lab, Ang - Db Attending Clinician Unavailable Unknown, Attending Attending Clinician Unavailab Dante Mims Attending Clinician Unavailable Dante CHILDRESS Attending Clinician Unavailable ROBERT GUERIN Attending Clinician Unavailable Robert Amin Attending Clinician [phone] Nurse, [facility] Attending Clinician Un available GISSEL NORRIS Attending Clinician Unavailable CAMPBELL ZIMMERMAN Attending Clinician Unavailable Erasmo EGG GRADER, Campbell Attending Clinician [phone] OVI STILES Attending Clinician Unavailable Don PAOvi Chandler Attending Clinician [phone] MONROE ALVARADO Attending Clinician Unavailable Green EGG GRADER, Monroe Attending Clinician [phone] ELDA DOWNS Attending Clinician Unavailab Elda Smith DO Attending Clinician [phone] Ebrahim EGG GRADER, Sathya Attending Clinician [phone] Prerna ADAMES, Cami Attending Clinician Unavailable DON CORTEZ Attending Clinician Unavailable Don Cortez MD Attending Clinician [phone] TRACY BABIN Attending Clinician Unavailable Tracy Babin MD Attending Clinician [phone] Doctor Unassigned, [place] Attending Clinician U MARIMAR Pereira Attending Clinician Unavailable MITALI PHILLIPS Attending Clinician Unavailab oh Phillips EGG GRADER, Mitali Ferrara Attending Clinician + [phone] Provider, [facility] Attending Clinician Unavailable Deann ADAMES, Devorah Belle Attending Clinician Unavailab STEVIE Willoughby Attending Clinician Unavailable Kenroy EGG GRADER, Shinta Attending Clinician [phone] Stevie Gregg PA-C Attending Clinician [phone] Only, Nickolas Aguirre Test Attending Clinician UnavailYg MCKEONP, Farrukh Attending Clinician [phone] FARRUKH HYMAN Attending Clinician UnavailLEA Antony Attending Clinician Unavailable Anton GILBERT, Chin Brown Attending Clinician [phone] Lab, [facility] Sheldon Pob I Attending Clinician Unavailab AREN Solitario Attending Clinician Unavailable Mele EGG GRADER, Aren Attending Clinician [phone] [facility] Attending Clinician Unavailable UNKNOWN, ATTENDING Attending Clinician Unavailab TACHO Quigley Attending Clinician Unavailabelardo Michelle PT, Mercy G Attending Clinician Unavailab Bee GILBERT, Tacoh Sauceda Attending Clinician Landon SAWYER, Guerline Howell Attending Clinician Unavail TRACY Fuller Admitting Clinician Unavailable Payers Payer Name Policy Type Policy Number Effective Date Expirati on Date Source Problems Condition Name Condition Details Condition Category Status Onset Date Resolution Date Last Treatment Date Treating Clinician Comments Source Primary insomnia Primary insomnia Disease Active 04-28 00:00: 00 [facility] Anxiety and depression Anxiety and depression Disease Active 04-28 00:00: 00 [facility] Acute cough Acute cough Disease Active 8 00:00: 00 [facility] Acute cough Acute cough Disease Active 09-11 00:00: 00 [facility] Rupture of anterior cruciate ligament of left knee, initial encounter Rupture of anterior cruciate ligament of left knee, initial encounter Disease Active 2017-02 00:00: 00 Overview: Formattin g of this note might be different from the original. Added automatic ally from request for surgery [id number] [facility] Allergies, Adverse Reactions, Alerts Allergy Name Allergy Type Status Severity Reaction(s) Onset Date Inactive Date Treating Clinician Comments Source BENZONAT ATE DRUG INGREDI Active Anxiety 05-10 00:00: 00 [facility] Benzonat ate Propensi ty to adverse reaction s Active Anxiety 05-10 00:00: 00 [facility] NO KNOWN ALLERGIE S Drug Class Active [facility] Social History Social Habit Start Date Stop Date Quantity Comments Source Gender identity [facility] of tobacco use Cigarette Smoker [facility] Alcoholic beverage intake 2024-01-27 00:00:00 2024-01-27 00:00:00 Current drinker of alcohol (finding) [facility] Tobacco use and exposure 2024-01-27 00:00:00 2024-01-27 00:00:00 User of smokeless tobacco [facility] Cigarettes smoked current (pack per day) - Reported 2024-01-27 00:00:00 2024-01-27 00:00:00 [facility] Cigarette pack-years 2024-01-27 00:00:00 2024-01-27 00:00:00 [facility] Alcohol intake 2023-04-29 00:00:00 2023-04-29 00:00:00 Current drinker of alcohol (finding) [facility] History of Social function 2023-04-29 00:00:00 2023-04-29 00:00:00 [facility] Exposure to SARS-CoV-2 (event) 2022-07-01 00:00:00 2022-07-11 10:50:00 Not sure [facility] Tobacco Comment 2022-04-12 00:00:00 2022-04-12 00:00:00 vape [facility] Alcohol Comment 2022-04-12 00:00:00 2022-04-12 00:00:00 ocassional [facility] Sex assigned at 2002 00:00:00 2000 00:00:00 [facility] Smoking Status Start Date Stop Date Source Smokes tobacco daily 2024-01-27 00:00:00 [facility] Never smoked tobacco [facility] Medications Ordered Medication Name Filled Medication Name Start Date Stop Date Current Medication? Ordering Clinician Indication Dosage Frequency Signature (SIG) Comments Components Source valACYclovi r 500 mg tablet 2023-02 00:00: 00 01-30 05:59 :00 Yes [id number] 500mg Take 1 tablet by mouth in the morning and 1 tablet in the evening. Do all this for 3 days. [facility] famotidine (PEPCID (PF)) injection 20 mg 2023-02 23:15: 00 12-20 23:33 :00 No 20mg 20 mg, Slow IV Push, ONCE, 1 dose, On 12/21/23 at 1715, WILY [facility] ketorolac (TORADOL) injection 15 mg 2023-02 23:00: 00 12-20 23:32 :00 No 15mg 15 mg, Slow IV Push, ONCE, 1 dose, On 12/21/23 at 1700, WILY [facility] ondansetron (ZOFRAN (PF)) injection 4 mg 2023-02 23:00: 00 12-20 23:33 :00 No 4mg 4 mg, Slow IV Push, ONCE, 1 dose, [facility],000 mL 2023-02 22:59: 00 12-21 00:33 :00 No 1000mL at 1,000 mL/hr, 1,000 mL, IV Infusion, ONCE, 1 dose, On 12/21/23 at 1700, [facility] ondansetron 4 mg disintegrat ing tablet 2023-02 00:00: 00 Yes [id number] 4mg Take 1 tablet by mouth every 8 (eight) hours as needed for Nausea and Vomiting (N/V). [facility] dicyclomine 20 mg tablet 2023-02 00:00: 00 Yes [id number] 20mg Take 1 tablet by mouth 4 (four) times daily as needed for Abdominal pain. [facility] methylPREDN ISolone (MEDROL, SUKHI,) 4 mg tablets 2023-02 00:00: 00 Yes [id number] Take by mouth SEE-INSTRU CTIONS. follow package directions [facility] ondansetron 4 mg disintegrat ing tablet 2023-02 00:00: 00 Yes [id number] 4mg Take 1 tablet by mouth every 12 (twelve) hours as needed for Nausea and Vomiting (N/V). [facility] erythromyci n (ILOTYCIN) 5 mg/gram (0.5 %) ophthalmic ointment 0.5 Inch 08-23 04:15: 00 Yes .5[in_u s] 0.5 Inch, Left Eye, QID, First dose on Sat08/23/23 at 2315, Until Discontinu ed, [facility] fluorescein (FUL-DAMIEN) ophthalmic strip 1 Strip 08-23 03:15: 00 08-23 03:32 :00 No 1{strip } 1 Strip, Left Eye, ONCE, 1 dose, On Sat08/23/23 at 2215, Routine [facility] tetracaine (PONTOCAINE ) 0.5 % ophthalmic drops 1 Drop 08-23 03:15: 00 08-23 03:32 :00 No 1[drp] 1 Drop, Left Eye, ONCE, 1 dose, On Sat08/23/23 at 2215, Routine [facility] erythromyci n 5 mg/gram (0.5 %) ophthalmic ointment 08-22 00:00: 00 Yes [id number] .5[in_u s] Place 0.5 Inches in left eye 4 (four) times daily. Continue until you follow up with eye doctor. [facility] ARIPiprazol e (ABILIFY) 2 mg tablet 04-28 08:53: 21 04-28 00:00 :00 No 2mg Take 2 mg by mouth daily. [facility] FLUoxetine 10 mg capsule 04-28 00:00: 00 Yes [id number] 10mg Take 1 capsule by mouth in the morning. [facility] ARIPiprazol e (ABILIFY) 2 mg tablet 04-28 00:00: 00 Yes [id number] 2mg Take 1 tablet by mouth in the morning. [facility] traZODone 50 mg tablet 18 00:00: 00 Yes [id number] 50mg Take 1 tablet by mouth at bedtime. [facility] hydrOXYzine 50 mg tablet 15 00:00: 00 Yes TAKE 1 TABLET BY MOUTH EVERY 8 HOURS NEEDED [facility] proMETHazin e 25 mg tablet 229 00:00: 00 11-16 00:00 :00 No TAKE 1 TABLET BY MOUTH EVERY 6 HOURS NEEDED FOR NAUSEA [facility] ofloxacin 0.3 % otic drops 07 00:00: 00 11-18 04:59 :00 No [id number] 5[drp] Place 5 Drops in left ear at bedtime for 30 days. [facility] ketorolac (TORADOL) injection 30 mg 09-30 23:45: 00 09-30 22:43 :00 No [id number] 30mg [facility] ofloxacin 0.3 % otic drops 09-30 00:00: 00 10-11 04:59 :00 No [id number] 5[drp] Place 5 Drops in left ear in the morning and 5 Drops in the evening. Do all this for 10 days. [facility] azelastine 137 mcg (0.1 %) nasal spray 09-25 00:00: 00 Yes [id number] 1{spray } Use 1 [place] in each nostril in the morning and 1 [place] in the evening. Use in each nostril as directed [facility] dexamethaso ne (DECADRON) injection 10 mg 09-17 19:17: 00 09-17 19:18 :00 No [id number] 10mg [facility] methylPREDN ISolone (MEDROL, SUKHI,) 4 mg tablets 09-17 00:00: 00 Yes [id number] follow package directions [facility] azithromyci n (ZITHROMAX Z-SUKHI) 250 mg tablet 09-17 00:00: 00 Yes [id number] Z pack as directed. [facility] codeine-gua ifenesin 10-100 mg/5 mL oral solution 09-17 00:00: 00 09-23 04:59 :00 No 10mL Take 10 mL by mouth every 6 (six) hours as needed for Cough for up to 5 days. Indication s: cough [facility] albuterol 90 mcg/actuati on inhaler 09-11 00:00: 00 Yes [id number] 2{puff} Inhale 2 Puffs every 6 (six) hours as needed for Wheezing or Shortness of Breath. [facility] cetirizine (ZYRTEC) 10 mg tablet 09-11 00:00: 00 Yes [id number] 10mg Take 1 tablet by mouth in the morning. [facility] Fluticasone -Salmeterol (ADVAIR DISKUS) 100-50 mcg/dose inhalation disk 09-11 00:00: 00 Yes [id number] 1{puff} Inhale 1 Puff every 12 (twelve) hours. [facility] ondansetron (ZOFRAN (PF)) injection 4 mg 09-04 18:45: 00 09-04 18:49 :00 No 4mg 4 mg, Slow IV Push, ONCE, 1 dose, On Sat09/04/22 at 1345, WILY [facility] NaCl 0.9% (NS) bolus infusion 500 mL 09-04 18:30: 00 09-04 20:07 :00 No 500mL at 999 mL/hr, 500 mL, IV Infusion, ONCE, 1 dose, On Sat09/04/22 at 1330, STAT [facility] ondansetron 4 mg disintegrat ing tablet 09-04 00:00: 00 11-16 00:00 :00 No [id number] 4mg Take 1 tablet by mouth every 8 (eight) hours as needed for Nausea and Vomiting (N/V). [facility] amoxicillin 875 mg tablet 08-24 00:00: 00 Yes TAKE 1 TABLET BY MOUTH EVERY 12 HOURS FOR 10 DAYS [facility] dexAMETHaso ne (DECADRON) tablet 12 mg 08-19 20:30: 00 08-19 19:51 :00 No [id number] 12mg [facility] codeine-gua ifenesin 10-100 mg/5 mL oral solution 08-19 00:00: 00 08-27 04:59 :00 No [id number] 10mL Take 10 mL by mouth every 8 (eight) hours as needed for Cough for up to 7 days. Indication s: acute pain [facility] dexamethaso ne (DECADRON) injection 10 mg 07-20 17:15: 00 07-20 16:20 :00 No [id number] 10mg [facility] meperidine HCl/prometh HCl (MEPERIDINE -PROMETHAZI NE ORAL) 07-20 00:00: 00 09-11 00:00 :00 No TAKE 5 ML BY MOUTH 4 TIMES DAILY FOR 10 DAYS [facility] promethazin e-dextromet horphan 6.25-15 mg/5 mL syrup 07-20 00:00: 00 07-31 04:59 :00 No [id number] 5mL Take 5 mL by mouth 4 (four) times daily for 10 days. [facility] amoxicillin -clavulanat e (AUGMENTIN) 875-125 mg per tablet 07-20 00:00: 00 07-31 04:59 :00 No [id number] 1{tbl} Take 1 tablet by mouth in the morning and 1 tablet in the evening. Do all this for 10 days. [facility] cetirizine 10 mg tablet 07-15 00:00: 00 Yes TAKE 1 TABLET BY MOUTH ONCE DAILY NEEDED FOR ALLERGY CONTROL [facility] famotidine 20 mg tablet 07-15 00:00: 00 Yes 20mg Take 1 tablet by mouth in the morning. [facility] predniSONE 20 mg tablet 07-15 00:00: 00 Yes TAKE 2 TABLETS BY MOUTH ONCE DAILY FOR 5 DAYS [facility] azithromyci n 500 mg tablet 07-15 00:00: 00 Yes TAKE 1 TABLET BY MOUTH ONCE DAILY FOR 5 DAYS [facility] bromphenira mine-pseudo ephedrine-D M (BROMFED DM) 2-30-10 mg/5 mL syrup 07-11 00:00: 00 Yes [id number] 10mL Take 10 mL by mouth 4 (four) times daily as needed for Cold symptoms. [facility] albuterol 90 mcg/actuati on inhaler 07-11 00:00: 00 Yes [id number] 2{puff} Inhale 2 Puffs every 6 (six) hours as needed for Shortness of Breath or Wheezing. [facility] ibuprofen 600 mg tablet 07-11 00:00: 00 Yes [id number] 600mg Take 1 tablet by mouth every 6 (six) hours as needed for Pain (scale 1-3) or Pain (scale 4-6). [facility] clindamycin 300 mg capsule -21 00:00: 00 06-23 04:59 :00 No [id number] 300mg Take 1 capsule by mouth 4 (four) times daily for 21 days. [facility] bromphenira mine-pseudo ephedrine-D M (BROMFED DM) 2-30-10 mg/5 mL syrup 330 00:00: 00 05-21 04:59 :00 No [id number] 5mL Take 5 mL by mouth 4 (four) times daily for 10 days. [facility] acetaminoph en-codeine 300-30 mg tablet 05-03 00:00: 00 Yes [id number] 1{tbl} Take 1-2 tablets by mouth every 6 (six) hours as needed for Pain (scale 4-6). Indication s: acute pain [facility] benzonatate 100 mg capsule 05-03 00:00: 00 Yes [id number] 100mg Take 1 capsule by mouth 3 (three) times daily as needed for Cough. [facility] nirmatrelvi r-ritonavir (PAXLOVID, EUA,) 300 mg (150 mg x 2)-100 mg tablet 16 00:00: 00 07-20 00:00 :00 No [id number] 3{tbl} Take 3 tablets by mouth in the morning and 3 tablets in the evening. [facility] penicillin g benzathine (BICILLIN L-A) injection 1.2 Million Units 04-12 20:30: 00 04-12 19:50 :00 No [id number] 1.210 [facility] methylPREDN ISolone sod succ (SOLU-MEDRO L (PF)) injection 40 mg 2021-02 17:15: 00 12-18 16:31 :00 No [id number] 40mg [facility] bromphenira mine-pseudo ephedrine-D M (BROMFED DM) 2-30-10 mg/5 mL syrup 2021-02 00:00: 00 Yes [id number] 5mL Take 5 mL by mouth 4 (four) times daily as needed for Congestion /Allergies . [facility] ondansetron (ZOFRAN-ODT ) disintegrat ing tablet 4 mg 2021-02 15:30: 00 12-14 14:43 :00 No [id number] 4mg [facility] oseltamivir (TAMIFLU) 75 mg capsule 2021-02 00:00: 00 12-20 05:59 :00 No [id number] 75mg Take 1 capsule by mouth in the morning and 1 capsule in the evening. Do all this for 5 days. [facility] bromphenira mine-pseudo ephedrine-D M 2-30-10 mg/5 mL syrup 2021-02 00:00: 00 12-18 00:00 :00 No [id number] 5mL Take 5 mL by mouth 4 (four) times daily as needed for Congestion /Allergies for up to 5 days. [facility] amoxicillin -clavulanat e (AUGMENTIN) 875-125 mg per tablet 09-17 00:00: 00 09-28 04:59 :00 No [id number] 1{tbl} Take 1 tablet by mouth in the morning and 1 tablet in the evening. Do all this for 10 days. [facility] polymyxin B sulf-trimet hoprim 10,000 unit- 1 mg/mL ophthalmic drops 09-17 00:00: 00 09-25 04:59 :00 No [id number] 1[drp] Place 1 Drop in left eye every 6 (six) hours for 7 days. [facility] predniSONE 10 mg tablet 09-17 00:00: 00 09-21 04:59 :00 No [id number] 10mg Take 1 tablet by mouth in the morning for 3 days. [facility] penicillin g benzathine (BICILLIN L-A) injection 1.2 Million Units 08-23 16:15: 00 08-23 15:10 :00 No [id number] 1.210 [facility] bromphenira mine-pseudo ephedrine-D M (BROMFED DM) 2-30-10 mg/5 mL syrup 08-23 00:00: 00 12-14 00:00 :00 No [id number] 5mL Take 5 mL by mouth 4 (four) times daily as needed for Congestion /Allergies . [facility] ARIPiprazol e (ABILIFY) 2 mg tablet 05-14 15:45: 41 Yes 2mg Take 2 mg by mouth daily. [facility] aluminum chloride (DRYSOL) 20 % external solution 05-26 00:00: 00 Yes [id number] Apply to affected areas on palms nightly as tolerated for one week then decrease to every other night [facility] doxycycline 100 mg capsule 04-02 00:00: 00 Yes 100mg Take 1 capsule by mouth 2 (two) times daily. [facility] clindamycin -benzoyl peroxide gel 04-02 00:00: 00 Yes Apply to area(s) every morning. [facility] FLUoxetine 20 mg capsule 2017-02 00:00: 00 04-28 00:00 :00 No [facility] Immunizations Ordered Immunization Name Filled Immunization Name Date Status Comments Source SARS-COV-2 COVID-19 PFIZER ROSELAI-SUCROSE VACCINE (LEO TOP) 2021-04-29 00:00:00 Completed [facility] SARS-COV-2 COVID-19 PFIZER ROSELIA-SUCROSE VACCINE (LEO TOP) 2021-04-29 00:00:00 Completed [facility] SARS-COV-2 COVID-19 PFIZER ROSELIA-SUCROSE VACCINE (LEO TOP) 2021-04-29 00:00:00 Completed [facility] SARS-COV-2 COVID-19 PFIZER ROSELIA-SUCROSE VACCINE (LEO TOP) 2021-04-29 00:00:00 Completed [facility] SARS-COV-2 COVID-19 PFIZER ROSELIA-SUCROSE VACCINE (LEO TOP) 2021-04-29 00:00:00 Completed [facility] SARS-COV-2 COVID-19 PFIZER ROSELIA-SUCROSE VACCINE (LEO TOP) 2021-04-29 00:00:00 Completed [facility] SARS-COV-2 COVID-19 PFIZER ROSELIA-SUCROSE VACCINE (LEO TOP) 2021-04-29 00:00:00 Completed [facility] SARS-COV-2 COVID-19 PFIZER ROSELIA-SUCROSE VACCINE (LEO TOP) 2021-04-29 00:00:00 Completed [facility] SARS-COV-2 COVID-19 PFIZER ROSELIA-SUCROSE VACCINE (LEO TOP) 2021-04-29 00:00:00 Completed [facility] SARS-COV-2 COVID-19 PFIZER ROSELIA-SUCROSE VACCINE (LEO TOP) 2021-04-29 00:00:00 Completed [facility] SARS-COV-2 COVID-19 PFIZER ROSELIA-SUCROSE VACCINE (LEO TOP) 2021-04-29 00:00:00 Completed [facility] SARS-COV-2 COVID-19 PFIZER ROSELIA-SUCROSE VACCINE (LEO TOP) 2021-04-29 00:00:00 Completed [facility] SARS-COV-2 COVID-19 PFIZER ROSELIA-SUCROSE VACCINE (LEO TOP) 2021-04-29 00:00:00 Completed [facility] SARS-COV-2 COVID-19 PFIZER ROSELIA-SUCROSE VACCINE (LEO TOP) 2021-04-29 00:00:00 Completed [facility] SARS-COV-2 COVID-19 PFIZER ROSELIA-SUCROSE VACCINE (LEO TOP) 2021-04-29 00:00:00 Completed [facility] SARS-COV-2 COVID-19 PFIZER ROSELIA-SUCROSE VACCINE (LEO TOP) 2021-04-29 00:00:00 Completed [facility] SARS-COV-2 COVID-19 PFIZER ROSELIA-SUCROSE VACCINE (LEO TOP) 2021-04-29 00:00:00 Completed [facility] SARS-COV-2 COVID-19 PFIZER ROSELIA-SUCROSE VACCINE (LEO TOP) 2021-04-29 00:00:00 Completed [facility] SARS-COV-2 COVID-19 PFIZER ROSELIA-SUCROSE VACCINE (LEO TOP) 2021-04-29 00:00:00 Completed [facility] SARS-COV-2 COVID-19 PFIZER ROSELIA-SUCROSE VACCINE (LEO TOP) 2021-04-29 00:00:00 Completed [facility] SARS-COV-2 COVID-19 PFIZER ROSELIA-SUCROSE VACCINE (LEO TOP) 2021-04-29 00:00:00 Completed [facility] SARS-COV-2 COVID-19 PFIZER ROSELIA-SUCROSE VACCINE (LEO TOP) 2021-04-29 00:00:00 Completed [facility] SARS-COV-2 COVID-19 PFIZER ROSELIA-SUCROSE VACCINE (LEO TOP) 2021-04-29 00:00:00 Completed [facility] SARS-COV-2 COVID-19 PFIZER ROSELIA-SUCROSE VACCINE (LEO TOP) 2021-04-29 00:00:00 Completed [facility] SARS-COV-2 COVID-19 PFIZER ROSELIA-SUCROSE VACCINE (LEO TOP) 2021-04-29 00:00:00 Completed [facility] SARS-COV-2 COVID-19 PFIZER ROSELIA-SUCROSE VACCINE (LEO TOP) 2021-04-29 00:00:00 Completed [facility] SARS-COV-2 COVID-19 PFIZER ROSELIA-SUCROSE VACCINE (LEO TOP) 2021-04-29 00:00:00 Completed [facility] SARS-COV-2 COVID-19 PFIZER ROSELIA-SUCROSE VACCINE (LEO TOP) 2021-04-29 00:00:00 Completed [facility] SARS-COV-2 COVID-19 PFIZER ROSELIA-SUCROSE VACCINE (LOE TOP) 2021-04-29 00:00:00 Completed [facility] SARS-COV-2 COVID-19 PFIZER ROSELIA-SUCROSE VACCINE (LEO TOP) 2021-04-29 00:00:00 Completed [facility] SARS-COV-2 COVID-19 PFIZER ROSELIA-SUCROSE VACCINE (LEO TOP) 2021-04-29 00:00:00 Completed [facility] SARS-COV-2 COVID-19 PFIZER ROSELIA-SUCROSE VACCINE (LEO TOP) 2021-04-29 00:00:00 Completed [facility] SARS-COV-2 COVID-19 PFIZER ROSELIA-SUCROSE VACCINE (LEO TOP) 2021-04-29 00:00:00 Completed [facility] SARS-COV-2 COVID-19 PFIZER ROSELIA-SUCROSE VACCINE (LEO TOP) 2021-04-29 00:00:00 Completed [facility] SARS-COV-2 COVID-19 PFIZER ROSELIA-SUCROSE VACCINE (LEO TOP) 2021-04-29 00:00:00 Completed [facility] SARS-COV-2 COVID-19 PFIZER ROSELIA-SUCROSE VACCINE (LEO TOP) 2021-04-29 00:00:00 Completed [facility] SARS-COV-2 COVID-19 PFIZER VACCINE 2020-05-25 00:00:00 Completed [facility] SARS-COV-2 COVID-19 PFIZER VACCINE 2020-05-25 00:00:00 Completed [facility] SARS-COV-2 COVID-19 PFIZER VACCINE 2020-05-25 00:00:00 Completed [facility] SARS-COV-2 COVID-19 PFIZER VACCINE 2020-05-25 00:00:00 Completed [facility] SARS-COV-2 COVID-19 PFIZER VACCINE 2020-05-25 00:00:00 Completed [facility] SARS-COV-2 COVID-19 PFIZER VACCINE 2020-05-25 00:00:00 Completed [facility] SARS-COV-2 COVID-19 PFIZER VACCINE 2020-05-25 00:00:00 Completed [facility] SARS-COV-2 COVID-19 PFIZER VACCINE 2020-05-25 00:00:00 Completed [facility] SARS-COV-2 COVID-19 PFIZER VACCINE 2020-05-25 00:00:00 Completed [facility] SARS-COV-2 COVID-19 PFIZER VACCINE 2020-05-25 00:00:00 Completed [facility] SARS-COV-2 COVID-19 PFIZER VACCINE 2020-05-25 00:00:00 Completed [facility] SARS-COV-2 COVID-19 PFIZER VACCINE 2020-05-25 00:00:00 Completed [facility] SARS-COV-2 COVID-19 PFIZER VACCINE 2020-05-25 00:00:00 Completed [facility] SARS-COV-2 COVID-19 PFIZER VACCINE 2020-05-25 00:00:00 Completed [facility] SARS-COV-2 COVID-19 PFIZER VACCINE 2020-05-25 00:00:00 Completed [facility] SARS-COV-2 COVID-19 PFIZER VACCINE 2020-05-25 00:00:00 Completed [facility] SARS-COV-2 COVID-19 PFIZER VACCINE 2020-05-25 00:00:00 Completed [facility] SARS-COV-2 COVID-19 PFIZER VACCINE 2020-05-25 00:00:00 Completed [facility] SARS-COV-2 COVID-19 PFIZER VACCINE 2020-05-25 00:00:00 Completed [facility] SARS-COV-2 COVID-19 PFIZER VACCINE 2020-05-25 00:00:00 Completed [facility] SARS-COV-2 COVID-19 PFIZER VACCINE 2020-05-25 00:00:00 Completed [facility] SARS-COV-2 COVID-19 PFIZER VACCINE 2020-05-25 00:00:00 Completed [facility] SARS-COV-2 COVID-19 PFIZER VACCINE 2020-05-25 00:00:00 Completed [facility] SARS-COV-2 COVID-19 PFIZER VACCINE 2020-05-25 00:00:00 Completed [facility] SARS-COV-2 COVID-19 PFIZER VACCINE 2020-05-25 00:00:00 Completed [facility] SARS-COV-2 COVID-19 PFIZER VACCINE 2020-05-25 00:00:00 Completed [facility] SARS-COV-2 COVID-19 PFIZER VACCINE 2020-05-25 00:00:00 Completed [facility] SARS-COV-2 COVID-19 PFIZER VACCINE 2020-05-25 00:00:00 Completed [facility] SARS-COV-2 COVID-19 PFIZER VACCINE 2020-05-25 00:00:00 Completed [facility] SARS-COV-2 COVID-19 PFIZER VACCINE 2020-05-25 00:00:00 Completed [facility] SARS-COV-2 COVID-19 PFIZER VACCINE 2020-05-25 00:00:00 Completed [facility] SARS-COV-2 COVID-19 PFIZER VACCINE 2020-05-25 00:00:00 Completed [facility] SARS-COV-2 COVID-19 PFIZER VACCINE 2020-05-25 00:00:00 Completed [facility] SARS-COV-2 COVID-19 PFIZER VACCINE 2020-05-25 00:00:00 Completed [facility] SARS-COV-2 COVID-19 PFIZER VACCINE 2020-05-25 00:00:00 Completed [facility] SARS-COV-2 COVID-19 PFIZER VACCINE 2020-05-25 00:00:00 Completed [facility] SARS-COV-2 COVID-19 PFIZER VACCINE 2020-05-04 00:00:00 Completed [facility] SARS-COV-2 COVID-19 PFIZER VACCINE 2020-05-04 00:00:00 Completed [facility] SARS-COV-2 COVID-19 PFIZER VACCINE 2020-05-04 00:00:00 Completed [facility] SARS-COV-2 COVID-19 PFIZER VACCINE 2020-05-04 00:00:00 Completed [facility] SARS-COV-2 COVID-19 PFIZER VACCINE 2020-05-04 00:00:00 Completed [facility] SARS-COV-2 COVID-19 PFIZER VACCINE 2020-05-04 00:00:00 Completed [facility] SARS-COV-2 COVID-19 PFIZER VACCINE 2020-05-04 00:00:00 Completed [facility] SARS-COV-2 COVID-19 PFIZER VACCINE 2020-05-04 00:00:00 Completed [facility] SARS-COV-2 COVID-19 PFIZER VACCINE 2020-05-04 00:00:00 Completed [facility] SARS-COV-2 COVID-19 PFIZER VACCINE 2020-05-04 00:00:00 Completed [facility] SARS-COV-2 COVID-19 PFIZER VACCINE 2020-05-04 00:00:00 Completed [facility] SARS-COV-2 COVID-19 PFIZER VACCINE 2020-05-04 00:00:00 Completed [facility] SARS-COV-2 COVID-19 PFIZER VACCINE 2020-05-04 00:00:00 Completed [facility] SARS-COV-2 COVID-19 PFIZER VACCINE 2020-05-04 00:00:00 Completed [facility] SARS-COV-2 COVID-19 PFIZER VACCINE 2020-05-04 00:00:00 Completed [facility] SARS-COV-2 COVID-19 PFIZER VACCINE 2020-05-04 00:00:00 Completed [facility] SARS-COV-2 COVID-19 PFIZER VACCINE 2020-05-04 00:00:00 Completed [facility] SARS-COV-2 COVID-19 PFIZER VACCINE 2020-05-04 00:00:00 Completed [facility] SARS-COV-2 COVID-19 PFIZER VACCINE 2020-05-04 00:00:00 Completed [facility] SARS-COV-2 COVID-19 PFIZER VACCINE 2020-05-04 00:00:00 Completed [facility] SARS-COV-2 COVID-19 PFIZER VACCINE 2020-05-04 00:00:00 Completed [facility] SARS-COV-2 COVID-19 PFIZER VACCINE 2020-05-04 00:00:00 Completed [facility] SARS-COV-2 COVID-19 PFIZER VACCINE 2020-05-04 00:00:00 Completed [facility] SARS-COV-2 COVID-19 PFIZER VACCINE 2020-05-04 00:00:00 Completed [facility] SARS-COV-2 COVID-19 PFIZER VACCINE 2020-05-04 00:00:00 Completed [facility] SARS-COV-2 COVID-19 PFIZER VACCINE 2020-05-04 00:00:00 Completed [facility] SARS-COV-2 COVID-19 PFIZER VACCINE 2020-05-04 00:00:00 Completed [facility] SARS-COV-2 COVID-19 PFIZER VACCINE 2020-05-04 00:00:00 Completed [facility] SARS-COV-2 COVID-19 PFIZER VACCINE 2020-05-04 00:00:00 Completed [facility] SARS-COV-2 COVID-19 PFIZER VACCINE 2020-05-04 00:00:00 Completed [facility] SARS-COV-2 COVID-19 PFIZER VACCINE 2020-05-04 00:00:00 Completed [facility] SARS-COV-2 COVID-19 PFIZER VACCINE 2020-05-04 00:00:00 Completed [facility] SARS-COV-2 COVID-19 PFIZER VACCINE 2020-05-04 00:00:00 Completed [facility] SARS-COV-2 COVID-19 PFIZER VACCINE 2020-05-04 00:00:00 Completed [facility] SARS-COV-2 COVID-19 PFIZER VACCINE 2020-05-04 00:00:00 Completed [facility] SARS-COV-2 COVID-19 PFIZER VACCINE 2020-05-04 00:00:00 Completed [facility] SARS-COV-2 COVID-19 PFIZER VACCINE Unknown Completed [facility] SARS-COV-2 COVID-19 PFIZER ROSELIA-SUCROSE VACCINE (LEO TOP) Unknown [facility] VACCINE Unknown Completed [facility] SARS-COV-2 COVID-19 PFIZER ROSELIA-SUCROSE VACCINE (LEO TOP) Unknown [facility]19 PFIZER VACCINE Unknown Completed [facility] SARS-COV-2 COVID-19 PFIZER ROSELIA-SUCROSE VACCINE (LEO TOP) Unknown Completed [facility] SARS-COV-2 COVID-19 PFIZER VACCINE Unknown Completed [facility] SARS-COV-2 COVID-19 PFIZER ROSELIA-SUCROSE VACCINE (LEO TOP) Unknown Completed [facility] SARS-COV-2 COVID-19 PFIZER VACCINE Unknown Completed [facility] SARS-COV-2 COVID-19 PFIZER ROSELIA-SUCROSE VACCINE (LEO TOP) Unknown Completed [facility] SARS-COV-2 COVID-19 PFIZER ROSELIA-SUCROSE VACCINE (LEO TOP) Unknown Completed [facility] SARS-COV-2 COVID-19 PFIZER VACCINE Unknown Completed [facility] SARS-COV-2 COVID-19 PFIZER VACCINE Unknown Completed [facility] SARS-COV-2 COVID-19 PFIZER ROSELIA-SUCROSE VACCINE (LEO TOP) Unknown Completed [facility] SARS-COV-2 COVID-19 PFIZER VACCINE Unknown Completed [facility] SARS-COV-2 COVID-19 PFIZER ROSELIA-SUCROSE VACCINE (LEO TOP) Unknown Completed [facility] SARS-COV-2 COVID-19 PFIZER VACCINE Unknown Completed [facility] SARS-COV-2 COVID-19 PFIZER ROSELIA-SUCROSE VACCINE (LEO TOP) Unknown Completed [facility] SARS-COV-2 COVID-19 PFIZER VACCINE Unknown Completed [facility] SARS-COV-2 COVID-19 PFIZER ROSELIA-SUCROSE VACCINE (LEO TOP) Unknown Completed [facility] SARS-COV-2 COVID-19 PFIZER VACCINE Unknown Completed [facility] SARS-COV-2 COVID-19 PFIZER ROSELIA-SUCROSE VACCINE (LEO TOP) Unknown Completed [facility] Vital Signs Vital Name Observation Time Observation Value Comments S our Systolic blood pressure 2024-01-27 16:20:00 131 mm[Hg] [facility] Diastolic blood pressure 2024-01-27 16:20:00 87 mm[Hg] [facility] Heart rate 2024-01-27 16:20:00 82 /min [facility] Body temperature 2024-01-27 16:20:00 36.61 Iovne [facility] Body height 2024-01-27 16:20:00 165.1 cm [facility] Body weight 2024-01-27 16:20:00 91.808 kg [facility] BMI 2024-01-27 16:20:00 33.68 kg/m2 [facility] Oxygen saturation in Arterial blood by Pulse oximetry 2024-01-27 16:20:00 99 /min [facility] Systolic blood pressure 2023-12-22 01:00:00 126 mm[Hg] [facility] Diastolic blood pressure 2023-12-22 01:00:00 67 mm[Hg] [facility] Heart rate 2023-12-22 01:00:00 59 /min [facility] Body temperature 2023-12-22 01:00:00 36.89 Ivone [facility] Respiratory rate 2023-12-22 01:00:00 18 /min [facility] Oxygen saturation in Arterial blood by Pulse oximetry 2023-12-22 01:00:00 98 /min [facility] Body height 2023-12-21 22:57:00 165.1 cm [facility] Body weight 2023-12-21 22:57:00 91.173 kg [facility] BMI 2023-12-21 22:57:00 33.45 kg/m2 [facility] Systolic blood pressure 2023-11-20 18:02:00 130 mm[Hg] [facility] Diastolic blood pressure 2023-11-20 18:02:00 88 mm[Hg] [facility] Heart rate 2023-11-20 18:01:00 87 /min [facility] Body temperature 2023-11-20 18:01:00 36.78 Ivone [facility] Respiratory rate 2023-11-20 18:01:00 18 /min [facility] Body weight 2023-11-20 18:01:00 88.814 kg [facility] BMI 2023-11-20 18:01:00 32.58 kg/m2 [facility] Oxygen saturation in Arterial blood by Pulse oximetry 2023-11-20 18:01:00 97 /min [facility] Systolic blood pressure 2023-11-17 15:53:00 139 mm[Hg] [facility] Diastolic blood pressure 2023-11-17 15:53:00 84 mm[Hg] [facility] Heart rate 2023-11-17 15:53:00 73 /min [facility] Body temperature 2023-11-17 15:53:00 36.83 Ivone [facility] Respiratory rate 2023-11-17 15:53:00 18 /min [facility] Body weight 2023-11-17 15:53:00 91.853 kg [facility] BMI 2023-11-17 15:53:00 33.70 kg/m2 [facility] Oxygen saturation in Arterial blood by Pulse oximetry 2023-11-17 15:53:00 97 /min [facility] Systolic blood pressure 2023-08-27 19:09:00 136 mm[Hg] [facility] Diastolic blood pressure 2023-08-27 19:09:00 66 mm[Hg] [facility] Heart rate 2023-08-27 19:09:00 113 /min [facility] Body temperature 2023-08-27 19:09:00 36.78 Ivone [facility] Respiratory rate 2023-08-27 19:09:00 18 /min [facility] Body weight 2023-08-27 19:09:00 90.855 kg [facility] BMI 2023-08-27 19:09:00 33.33 kg/m2 [facility] Oxygen saturation in Arterial blood by Pulse oximetry 2023-08-27 19:09:00 98 /min [facility] Systolic blood pressure 2023-08-24 03:38:00 149 mm[Hg] [facility] Diastolic blood pressure 2023-08-24 03:38:00 85 mm[Hg] [facility] Heart rate 2023-08-24 03:38:00 70 /min [facility] Body temperature 2023-08-24 03:38:00 37.17 Ivone [facility] Respiratory rate 2023-08-24 03:38:00 18 /min [facility] Oxygen saturation in Arterial blood by Pulse oximetry 2023-08-24 03:38:00 97 /min [facility] Body height 2023-08-24 01:35:00 165.1 cm [facility] Body weight 2023-08-24 01:35:00 91.128 kg [facility] BMI 2023-08-24 01:35:00 33.43 kg/m2 [facility] Systolic blood pressure 2023-04-29 13:31:00 136 mm[Hg] [facility] Diastolic blood pressure 2023-04-29 13:31:00 85 mm[Hg] [facility] Heart rate 2023-04-29 13:31:00 70 /min [facility] Body temperature 2023-04-29 13:31:00 36.67 Ivone [facility] Respiratory rate 2023-04-29 13:31:00 18 /min [facility] Body height 2023-04-29 13:31:00 165.1 cm [facility] Body weight 2023-04-29 13:31:00 87.363 kg [facility] BMI 2023-04-29 13:31:00 32[facility]05 [facility]terial blood by Pulse oximetry 2023-04-29 13:31:00 98 /min [facility] Systolic blood pressure 2023-04-26 20:59:00 129 mm[Hg] [facility] Diastolic blood pressure 2023-04-26 20:59:00 82 mm[Hg] [facility] Heart rate 2023-04-26 20:59:00 79 /min [facility] Body temperature 2023-04-26 20:59:00 37.44 Ivone [facility] Respiratory rate 2023-04-26 20:59:00 16 /min [facility] Body height 2023-04-26 20:59:00 165.1 cm [facility] Body weight 2023-04-26 20:59:00 83.915 kg [facility] BMI 2023-04-26 20:59:00 30.79 kg/m2 [facility] Oxygen saturation in Arterial blood by Pulse oximetry 2023-04-26 20:59:00 99 /min [facility] Systolic blood pressure 2023-04-01 16:05:00 140 mm[Hg] [facility] Diastolic blood pressure 2023-04-01 16:05:00 93 mm[Hg] [facility] Heart rate 2023-04-01 16:04:00 78 /min [facility] Body temperature 2023-04-01 16:04:00 36.22 Ivone [facility] Respiratory rate 2023-04-01 16:04:00 18 /min [facility] Body height 2023-04-01 16:04:00 165.1 cm [facility] Body weight 2023-04-01 16:04:00 86.41 kg [facility] BMI 2023-04-01 16:04:00 31.70 [facility]2 [facility] in Arterial blood by Pulse oximetry 2023-04-01 16:04:00 100 /min [facility] Body height 2022-10-18 18:55:00 165.1 cm [facility] Body weight 2022-10-18 18:55:00 80.015 kg [facility] BMI 2022-10-18 18:55:00 29.35 kg/m2 [facility] Systolic blood pressure 2022-09-30 22:20:00 123 mm[Hg] [facility] Diastolic blood pressure 2022-09-30 22:20:00 86 mm[Hg] [facility] Heart rate 2022-09-30 22:20:00 95 /min [facility] Body temperature 2022-09-30 22:20:00 36.94 Ivone [facility] Respiratory rate 2022-09-30 22:20:00 18 /min [facility] Body height 2022-09-30 22:20:00 165.1 cm [facility] Body weight 2022-09-30 22:20:00 77.168 kg [facility] BMI 2022-09-30 22:20:00 28.31 kg/m2 [facility] Oxygen saturation in Arterial blood by Pulse oximetry 2022-09-30 22:20:00 97 /min [facility] Systolic blood pressure 2022-09-25 21:13:00 118 mm[Hg] [facility] Diastolic blood pressure 2022-09-25 21:13:00 73 mm[Hg] [facility] Heart rate 2022-09-25 21:13:00 80 /min [facility] Body temperature 2022-09-25 21:13:00 37 Ivone [facility] Body height 2022-09-25 21:13:00 165.1 cm [facility] Body weight 2022-09-25 21:13:00 79.379 kg [facility] BMI 2022-09-25 21:13:00 29.12 kg/m2 [facility] Oxygen saturation in Arterial blood by Pulse oximetry 2022-09-25 21:13:00 98 /min [facility] Systolic blood pressure 2022-09-17 19:01:00 124 mm[Hg] [facility] Diastolic blood pressure 2022-09-17 19:01:00 83 mm[Hg] [facility] Heart rate 2022-09-17 19:01:00 97 /min [facility] Body temperature 2022-09-17 19:01:00 37.17 Ivone [facility] Respiratory rate 2022-09-17 19:01:00 18 /min [facility] Body height 2022-09-17 19:01:00 165.1 cm [facility] Body weight 2022-09-17 19:01:00 77.656 kg [facility] BMI 2022-09-17 19:01:00 28.49 kg/m2 [facility] Oxygen saturation in Arterial blood by Pulse oximetry 2022-09-17 19:01:00 98 /min [facility] Systolic blood pressure 2022-09-11 17:48:00 113 mm[Hg] [facility] Diastolic blood pressure 2022-09-11 17:48:00 75 mm[Hg] [facility] Heart rate 2022-09-11 17:48:00 97 /min [facility] Body temperature 2022-09-11 17:48:00 37 Ivone [facility] Body height 2022-09-11 17:48:00 165.1 cm [facility] Body weight 2022-09-11 17:48:00 77.973 kg [facility] BMI 2022-09-11 17:48:00 28.61 kg/m2 [facility] Oxygen saturation in Arterial blood by Pulse oximetry 2022-09-11 17:48:00 98 /min [facility] Systolic blood pressure 2022-09-04 20:00:00 122 mm[Hg] [facility] Diastolic blood pressure 2022-09-04 20:00:00 72 mm[Hg] [facility] Heart rate 2022-09-04 20:00:00 87 /min [facility] Oxygen saturation in Arterial blood by Pulse oximetry 2022-09-04 20:00:00 100 /min [facility] Respiratory rate 2022-09-04 19:00:00 18 /min [facility] Body temperature 2022-09-04 17:32:00 37.22 Ivone [facility] Body weight 2022-09-04 17:32:00 80.74 kg [facility] Systolic blood pressure 2022-08-19 19:14:00 131 mm[Hg] [facility] Diastolic blood pressure 2022-08-19 19:14:00 85 mm[Hg] [facility] Heart rate 2022-08-19 19:14:00 93 /min [facility] Body temperature 2022-08-19 19:14:00 36.94 Ivone [facility] Respiratory rate 2022-08-19 19:14:00 17 /min [facility] Body height 2022-08-19 19:14:00 165.1 cm [facility] Body weight 2022-08-19 19:14:00 80.825 kg [facility] BMI 2022-08-19 19:14:00 29.65 kg/m2 [facility] Oxygen saturation in Arterial blood by Pulse oximetry 2022-08-19 19:14:00 97 /min [facility] Systolic blood pressure 2022-07-20 16:02:00 115 mm[Hg] [facility] Diastolic blood pressure 2022-07-20 16:02:00 85 mm[Hg] [facility] Heart rate 2022-07-20 16:02:00 89 /min [facility] Body temperature 2022-07-20 16:02:00 36.94 Ivone [facility] Respiratory rate 2022-07-20 16:02:00 16 /min [facility] Body weight 2022-07-20 16:02:00 83.416 kg [facility] Oxygen saturation in Arterial blood by Pulse oximetry 2022-07-20 16:02:00 97 /min [facility] Systolic blood pressure 2022-07-11 16:03:00 130 mm[Hg] [facility] Diastolic blood pressure 2022-07-11 16:03:00 79 mm[Hg] [facility] Heart rate 2022-07-11 16:00:00 95 /[facility] 2022-07-11 16:00:00 36.83 Ivone [facility] Respiratory rate 2022-07-11 16:00:00 17 /min [facility] Body height 2022-07-11 16:00:00 165.1 cm [facility] Body weight 2022-07-11 16:00:00 81.965 kg [facility] BMI 2022-07-11 16:00:00 30.07 kg/m2 [facility] Oxygen [facility] in Arterial blood by Pulse oximetry 2022-07-11 16:00:00 96 /min [facility] Systolic blood pressure 2022-06-02 17:13:00 113 mm[Hg] [facility] Diastolic blood pressure 2022-06-02 17:13:00 77 mm[Hg] [facility] Heart rate 2022-06-02 17:13:00 72 /min [facility] Body temperature 2022-06-02 17:13:00 36.28 Ivone [facility] Respiratory rate 2022-06-02 17:13:00 18 /min [facility] Body height 2022-06-02 17:13:00 167.6 cm [facility] Body weight 2022-06-02 17:13:00 84.868 kg [facility] BMI 2022-06-02 17:13:00 30.20 kg/m2 [facility] Oxygen saturation in Arterial blood by Pulse oximetry 2022-06-02 17:13:00 98 /min [facility] Body height 2022-06-01 14:02:00 165.1 cm [facility] Body weight 2022-06-01 14:02:00 85.004 [facility] BMI 2022-06-01 14:02:00 31.18 kg/m2 [facility] Systolic blood pressure 2022-05-10 20:12:00 134 mm[Hg] [facility] Diastolic blood pressure 2022-05-10 20:12:00 82 mm[Hg] [facility] Heart rate 2022-05-10 20:10:00 108 /min [facility] Body temperature 2022-05-10 20:10:00 36.89 Ivone [facility] Respiratory rate 2022-05-10 20:10:00 16 /min [facility] Body height 2022-05-10 20:10:00 165.1 cm [facility] Body weight 2022-05-10 20:10:00 85.548 kg [facility] BMI 2022-05-10 20:10:00 31.38 kg/m2 [facility] Oxygen saturation in Arterial blood by Pulse oximetry 2022-05-10 20:10:00 99 /min [facility] Systolic blood pressure 2022-05-04 00:58:00 148 mm[Hg] [facility] Diastolic blood pressure 2022-05-04 00:58:00 80 mm[Hg] [facility] Heart rate 2022-05-04 00:58:00 98 /min [facility] Body temperature 2022-05-04 00:58:00 37.28 Ivone [facility] Respiratory rate 2022-05-04 00:58:00 24 /min [facility] Body height 2022-05-04 00:58:00 165.1 cm [facility] Body weight 2022-05-04 00:58:00 85.049 kg [facility] BMI 2022-05-04 00:58:00 31.20 kg/m2 [facility] Oxygen saturation in Arterial blood by Pulse oximetry 2022-05-04 00:58:00 99 /min [facility] Systolic blood pressure 2022-04-26 14:51:00 139 mm[Hg] [facility] Diastolic blood pressure 2022-04-26 14:51:00 88 mm[Hg] [facility] Heart rate 2022-04-26 14:50:00 112 /min [facility] Body temperature 2022-04-26 14:50:00 38.11 Ivone [facility] Respiratory rate 2022-04-26 14:50:00 16 /min [facility] Body height 2022-04-26 14:50:00 165.1 cm [facility] Body weight 2022-04-26 14:50:00 86.501 kg [facility] BMI 2022-04-26 14:50:00 31.73 kg/m2 [facility] Oxygen saturation in Arterial blood by Pulse oximetry 2022-04-26 14:50:00 96 /min [facility] Systolic blood pressure 2022-04-12 19:10:00 129 mm[Hg] [facility] Diastolic blood pressure 2022-04-12 19:10:00 84 mm[Hg] [facility] Heart rate 2022-04-12 19:10:00 90 /min [facility] Body temperature 2022-04-12 19:10:00 37.06 Ivone [facility] Respiratory rate 2022-04-12 19:10:00 18 /min [facility] Body height 2022-04-12 19:10:00 165.1 cm [facility] Body weight 2022-04-12 19:10:00 85.503 kg [facility] BMI 2022-04-12 19:10:00 31.37 kg/m2 [facility] Oxygen saturation in Arterial blood by Pulse oximetry 2022-04-12 19:10:00 99 /min [facility] Systolic blood pressure 2021-12-18 16:02:00 127 mm[Hg] [facility] Diastolic blood pressure 2021-12-18 16:02:00 85 mm[Hg] [facility] Heart rate 2021-12-18 16:02:00 82 /min [facility] Body temperature 2021-12-18 16:02:00 36.44 Ivone [facility] Respiratory rate 2021-12-18 16:02:00 18 /min [facility] Body height 2021-12-18 16:02:00 165.2 cm [facility] Body weight 2021-12-18 16:02:00 83.008 kg [facility] BMI 2021-12-18 16:02:00 30.43 kg/m2 [facility] Oxygen saturation in Arterial blood by Pulse oximetry 2021-12-18 16:02:00 98 /min [facility] Systolic blood pressure 2021-12-14 14:35:00 123 mm[Hg] [facility] Diastolic blood pressure 2021-12-14 14:35:00 69 mm[Hg] [facility] Heart rate 2021-12-14 14:35:00 109 /min [facility] Body temperature 2021-12-14 14:35:00 37 Ivone [facility] Respiratory rate 2021-12-14 14:35:00 16 /min [facility] Body weight 2021-12-14 14:35:00 83.371 kg [facility] Oxygen saturation in Arterial blood by Pulse oximetry 2021-12-14 14:35:00 98 /min [facility] Systolic blood pressure 2021-09-17 17:33:00 119 mm[Hg] [facility] Diastolic blood pressure 2021-09-17 17:33:00 84 mm[Hg] [facility] Heart rate 2021-09-17 17:33:00 96 /min [facility] Body temperature 2021-09-17 17:33:00 37.11 Ivone [facility] Respiratory rate 2021-09-17 17:33:00 16 /min [facility] Body height 2021-09-17 17:33:00 165.1 cm [facility] Body weight 2021-09-17 17:33:00 83.008 kg [facility] BMI 2021-09-17 17:33:00 30.45 kg/m2 [facility] Oxygen saturation in Arterial blood by Pulse oximetry 2021-09-17 17:33:00 98 /min [facility] Systolic blood pressure 2021-09-07 17:21:00 129 mm[Hg] [facility] Diastolic blood pressure 2021-09-07 17:21:00 83 mm[Hg] [facility] Heart rate 2021-09-07 17:21:00 72 /min [facility] Body temperature 2021-09-07 17:21:00 36.89 Ivone [facility] Respiratory rate 2021-09-07 17:21:00 20 /min [facility] Body height 2021-09-07 17:21:00 165.1 cm [facility] Body weight 2021-09-07 17:21:00 81.874 kg [facility] BMI 2021-09-07 17:21:00 30.04 kg/m2 [facility] Oxygen saturation in Arterial blood by Pulse oximetry 2021-09-07 17:21:00 98 /min [facility] Systolic blood pressure 2021-08-23 14:52:00 127 mm[Hg] [facility] Diastolic blood pressure 2021-08-23 14:52:00 80 mm[Hg] [facility] Heart rate 2021-08-23 14:52:00 93 /min [facility] Body temperature 2021-08-23 14:52:00 38.17 Ivone [facility] Respiratory rate 2021-08-23 14:52:00 17 /min [facility] Body height 2021-08-23 14:52:00 165.1 cm [facility] Body weight 2021-08-23 14:52:00 81.647 kg [facility] BMI 2021-08-23 14:52:00 29.95 kg/m2 [facility] Oxygen saturation in Arterial blood by Pulse oximetry 2021-08-23 14:52:00 100 /min [facility] Procedures Procedure Date / Time Performed Performing Clinician Source LIPASE 2023-12-21 23:31:00 [facility]12[facility] (ALB,T.PRO,BILI T,BU/BC,ALT,AST,ALK PHOS) 2023-12-21 23:31:00 Bella, [facility] BASIC METABOLIC PANEL (NA, K, CL, CO2, GLUCOSE, BUN, CREATININE, CA) 2023-12-21 23:31:00 Bella [facility] CBC WITH DIFF 2023-12-21 23:31:00 Bella [facility] URINALYSIS 2023-12-21 23:31:00 Bella [facility] RAPID STREP SCREEN FOR GROUP A 2023-12-21 23:31:00 Bella [facility] INFLUENZA A/B RSV COVID NAAT 2023-12-21 23:31:00 Bella [facility] POCT MOLECULAR STREP 2023-11-17 15:52:00 Unknown, Harpal cisse [facility] POCT SARS-COV-2 ANTIGEN (BINAX NOW) 2023-04-01 00:00:00 Nora Barrera [facility] COMP. METABOLIC PANEL (00820) 2022-09-04 18:47:00 Elda Downs [facility] CBC WITH DIFF 2022-09-04 18:47:00 Elda Downs [facility] COVID-19 (ID NOW RAPID TESTING) 2022-09-04 18:47:00 Elda Downs [facility] CONSENT/REFUSAL FOR DIAGNOSIS AND TREATMENT 2022-09-04 17:29:28 Doctor Unassigned, [place] [facility] THROAT CULTURE 2022-08-19 19:57:00 Christiano [facility] GC & CHLAMYDIA AMPLIFIED ASSAY 2022-08-19 19:57:00 Christiano [facility] POCT MOLECULAR FLU 2022-08-19 19:36:00 Unknown, Attend ing [facility] POCT SARS-COV-2 ANTIGEN (BINAX NOW) 2022-08-19 19:33:00 Christiano [facility] POCT MOLECULAR STREP 2022-08-19 19:16:00 Unknown, Harpal cisse [facility] POCT MOLECULAR STREP 2022-06-02 17:25:00 Unknown, Atte tanna [facility] XR CHEST 2 VW 2022-05-04 01:26:00 Tracy Babin [facility] RAPID STREP SCREEN FOR GROUP A 2022-05-04 01:21:00 Tracy Babin [facility] CONSENT/REFUSAL FOR DIAGNOSIS AND TREATMENT 2022-05-04 00:54:30 Doctor Unassigned, [place] [facility] POCT SARS-COV-2 ANTIGEN (BINAX NOW) 2022-04-26 15:04:00 Sathya Vasquez [facility] POCT MOLECULAR FLU 2022-04-26 14:58:00 Unknown, Attend [facility] POCT MOLECULAR STREP 2022-04-26 14:56:00 [facility], [facility] 2022-04-12 19:25:00 Unknown, Attsuhail [facility] ASSIGNMENT OF BENEFITS 2022-04-12 19:01:07 Docto r Unassigned, [place] [facility] POCT MOLECULAR STREP 2021-12-18 16:01:00 Unknown, [facility] 2021-12-14 14:42:00 Unknown, Attend [facility] POCT MOLECULAR STREP 2021-09-17 17:37:00 Marysol [facility] COVID-19 (MOLECULAR TESTING NUCLEIC ACID AMPLIFICATION) 2021-09-17 17:35:00 Marysol [facility] LAB ONLY COVID INTERPRETATION 2021-09-17 17:35:00 Stevie Gregg [facility] POCT MOLECULAR STREP 2021-08-23 14:59:00 Nora Barrera [facility] Encounters Start Date/Time End Date/Time Encounter Type Admission Type Attending Clinicians Care Facility Care Department Encounter ID Source 2024-01-27 00:00:00 2024-01-27 10:40:57 Letter (Out) Robert Guerin [facility] 1.2.840.114 350.1.13.10 4.2.7.2.686 [id number] [facility] 2024-01-27 10:00:00 2024-01-27 10:39:54 Outpatient R PB BELTRAN FAKEHA [facility] [id number] [facility] 2024-01-27 10:00:00 2024-01-27 10:39:54 Office Visit Pb Beltran [facility] 1.840.114 350.1.13.10 4.2.7.2.686 [id number] [facility] 2023-12-21 16:59:00 2023-12-21 19:22:00 Emergency X ADY DURAN [facility] ERT [id number] [facility] 2023-12-21 16:59:00 2023-12-21 19:22:00 Emergency Ady Duran [facility] AT [facility] 1.84.114 350.1.13.10 4.2.7.2.686 [id number] [facility] 2023-11-20 12:40:00 2023-11-20 13:13:22 Outpatient R SATHYA VASQUEZ [facility] [id number] [facility] 2023-11-20 12:40:00 2023-11-20 13:13:22 Urgent Care Sathya Vasquez Unknown, Attending [facility] 1.84.114 350.1.13.10 4.2.7.2.686 [id number] [facility] 2023-11-20 00:00:00 2023-11-20 13:12:27 Letter (Out) Sathya Vasquez [facility] 1.840.114 350.1.13.10 4.2.7.2.686 [id number] [facility] 2023-11-17 10:40:00 2023-11-17 11:12:43 Outpatient R NORA BARRERA [facility] [id number] [facility] 2023-11-17 10:40:00 2023-11-17 11:12:43 Urgent Care BruceNora Unknown, Attending [facility] 1.2.840.114 350.1.13.10 4.2.7.2.686 [id number] [facility] 2023-08-28 00:00:00 2023-08-28 14:07:50 Telephone [facility] 1.2.840.114 350.1.13.10 4.2.7.2.686 [id number] [facility] 2023-08-27 14:45:00 2023-08-27 15:25:38 Blindstitch Hemmer Visit Lab, Ang - Db Unknown, Attending [facility] 1.2.840.114 350.1.13.10 4.2.7.2.686 [id number] [facility] 2023-08-27 14:00:00 2023-08-27 15:02:41 Outpatient R NORA BARRERA [facility] [id number] [facility] 2023-08-27 14:00:00 2023-08-27 15:02:41 Urgent Care BruceNora Unknown, Attending [facility] 1.2.840.114 350.1.13.10 4.2.7.2.686 [id number] [facility] 2023-08-23 20:36:00 2023-08-23 23:18:00 Emergency X Dante [facility] [id number] [facility] 2023-08-23 20:36:00 2023-08-23 23:18:00 Emergency Dante Childress [facility] 1.2840.114 350.1.13.10 4.2.7.2.686 [id number] [facility] 2023-06-10 14:30:00 2023-06-10 14:30:00 Outpatient R ROBERT GUERIN [facility] [id number] [facility] 2023-04-29 08:30:00 2023-04-29 09:05:25 Outpatient R ROBERT GUERIN [facility] [id number] [facility] 2023-04-29 08:30:00 2023-04-29 09:05:25 Office Visit DayannaNamrata simmonsFormerly [facility] [place] 1.2840.114 350.1.13.10 4.2.7.2.686 [id number] [facility] 2023-04-29 00:00:00 2023-04-29 00:00:00 Letter (Out) Robert Guerin [facility] 1.2840.114 350.1.13.10 4.2.7.2.686 [id number] [facility] 2023-04-29 00:00:00 2023-04-29 00:00:00 Letter (Out) [facility] 1.2840.114 350.1.13.10 4.2.7.2.686 [id number] [facility] 2023-04-26 15:45:00 2023-04-26 16:07:28 Outpatient R NORA BARRERA [facility] [id number] [facility] 2023-04-26 15:45:00 2023-04-26 16:07:28 Nurse Visit Nurse, Nickolas Aguirre [facility] Unknown, Attending Bruce [facility] [place]?[facility] 1.2840.114 350.1.13.10 4.2.7.2.686 [id number] [facility] 2023-04-03 08:00:00 2023-04-03 08:00:00 Outpatient R GISSEL NORRIS [facility] [id number] [facility] 2023-04-01 09:40:00 2023-04-01 10:37:09 Outpatient R CAMPBELL ZIMMERMAN [facility] [id number] [facility] 2023-04-01 09:40:00 2023-04-01 10:00:00 Urgent Care Campbell Zimmerman Unknown, Attending [facility] 1..840.114 350.1.13.10 4.2.7.2.686 [id number] [facility] 2023-04-01 00:00:00 2023-04-01 00:00:00 Letter (Out) Campbell Zimmerman [facility] 1..840.114 350.1.13.10 4.2.7.2.686 [id number] [facility] 2023-01-21 14:15:00 2023-01-21 14:15:00 Outpatient R OVI STILES [facility] [id number] [facility] 2023-01-18 16:00:00 2023-01-18 16:00:00 Outpatient R [facility] [id number] [facility] 2022-12-26 15:30:00 2022-12-26 15:30:00 Outpatient R ROBERT GUERIN [facility] [id number] [facility] 2022-10-18 14:15:00 2022-10-18 14:30:00 Office Visit Ovi Stiles [facility] FARRU[facility] 1.2.840.114 350.1.13.10 4.2.7.2.686 [id number] [facility] 2022-10-18 14:15:00 2022-10-18 14:15:00 Outpatient R VOI STILES [facility] [id number] [facility] 2022-09-30 17:00:00 2022-09-30 18:35:20 Outpatient R MONROE ALVARADO [facility] [id number] [facility] 2022-09-30 17:00:00 2022-09-30 18:35:20 Urgent Care Monroe Alvarado Unknown, Attending [facility] 1.84.114 350.1.13.10 4.2.7.2.686 [id number] [facility] 2022-09-25 16:00:00 2022-09-25 16:34:10 Outpatient R ROBERT GUERIN [facility] [id number] [facility] 2022-09-25 16:00:00 2022-09-25 16:34:10 Office Visit DayannaRobert simmons [facility] 1.84.114 350.1.13.10 4.2.7.2.686 [id number] [facility] 2022-09-17 14:00:00 2022-09-17 14:31:03 Outpatient R CAMPBELL ZIMMERMAN [facility] [id number] [facility] 2022-09-17 14:00:00 2022-09-17 14:20:00 Urgent Care Campbell Zimmerman Unknown, Attending [facility] [place] 1.84.114 350.1.13.10 4.2.7.2.686 [id number] 370 [id number] [facility] 2022-09-17 00:00:00 2022-09-17 00:00:00 Letter (Out) Campbell Zimmerman [facility] [place] 1.84.114 350.1.13.10 4.2.7.2.686 [id number] [facility] 2022-09-11 13:37:28 2022-09-11 23:59:00 Outpatient R ROBERT GUERIN [facility] [id number] [facility] 2022-09-11 13:37:28 2022-09-11 23:59:00 Hospital Encounter Namrata GuerinFormerly [facility] [place] 1.2.840.114 350.1.13.10 4.2.7.2.686 [id number] [facility] 2022-09-11 13:30:00 2022-09-11 13:45:00 Blindstitch Hemmer Visit Lab, Nickolas - [facility] 1.2.840.114 350.1.13.10 4.2.7.2.686 [id number] [facility] 2022-09-11 13:00:00 2022-09-11 13:30:00 Office Visit Robert Guerin [facility] [place] 1.2.840.114 350.1.13.10 4.2.7.2.686 [id number] [facility] 2022-09-11 00:00:00 2022-09-11 00:00:00 Letter (Out) Robert Guerin [facility] 1.2.840.114 350.1.13.10 4.2.7.2.686 [id number] [facility] 2022-09-04 12:33:00 2022-09-04 15:08:00 Emergency X ELDA DOWNS [facility] [id number] [facility] 2022-09-04 12:33:00 2022-09-04 15:08:00 Emergency Elda Downs [facility] 1.2.840.114 350.1.13.10 4.2.7.2.686 [id number] [facility] 2022-08-23 00:00:00 2022-08-23 00:00:00 Telephone Monroe Alvarado [facility] [place] 1..840.114 350.1.13.10 4.2.7.2.686 [id number] [facility] 2022-08-19 14:00:00 2022-08-19 15:03:11 Outpatient R MONROE ALVARADO [facility] [id number] [facility] 2022-08-19 14:00:00 2022-08-19 15:03:11 Urgent Care Monroe Alvarado Unknown, Attending [facility] 1..840.114 350.1.13.10 4.2.7.2.686 [id number] [facility] 2022-07-20 10:40:00 2022-07-20 11:00:00 Urgent Care Sathya Vasquez Unknown, Attending [facility] 1..840.114 350.1.13.10 4.2.7.2.686 [id number] [facility] 2022-07-20 10:40:00 2022-07-20 10:40:00 Outpatient R SATHYA VASQUEZ [facility] [id number] [facility] 2022-07-20 00:00:00 2022-07-20 00:00:00 Letter (Out) Sathya Vasquez [facility] 1..840.114 350.1.13.10 4.2.7.2.686 [id number] [facility] 2022-07-12 00:00:00 2022-07-12 00:00:00 Letter (Out) Cami Graff [facility] 1.2.840.114 350.1.13.10 4.2.7.2.686 [id number] [facility] 2022-07-11 10:40:00 2022-07-11 11:16:25 Outpatient R BRUCEFLAVIONORA [facility] [id number] [facility] 2022-07-11 10:40:00 2022-07-11 11:16:25 Urgent Care Nora Barrera Unknown, Attending [facility] 1.2.840.114 350.1.13.10 4.2.7.2.686 [id number] [facility] 2022-07-11 00:00:00 2022-07-11 00:00:00 Letter (Out) Bruce Nroa [facility] 1.2.840.114 350.1.13.10 4.2.7.2.686 [id number] [facility] 2022-06-29 11:15:00 2022-06-29 11:15:00 Outpatient R DON CORTEZ [facility] [id number] [facility] 2022-06-02 12:00:00 2022-06-02 12:53:47 Outpatient R SATHYA VASQUEZ [facility] [id number] [facility] 2022-06-02 12:00:00 2022-06-02 12:20:00 Urgent Care Sathya Vasquez Unknown, Attending [facility] 1.2.840.114 350.1.13.10 4.2.7.2.686 [id number] [facility] 2022-06-01 09:30:00 2022-06-01 09:39:26 Outpatient R DON CORTEZ [facility] [id number] [facility] 2022-06-01 09:30:00 2022-06-01 09:39:26 Office Visit Don Cortez [facility]. 1.84.114 350.1.13.10 4.2.7.2.686 [id number] [facility] 2022-05-10 14:45:00 2022-05-10 15:05:00 Urgent Care Sathya Vasquez, Attending [facility] 1.84.114 350.1.13.10 4.2.7.2.686 [id number] [facility] 2022-05-10 14:45:00 2022-05-10 14:45:00 Outpatient R SATHYA VASQUEZ [facility] [id number] [facility] 2022-05-10 00:00:00 2022-05-10 00:00:00 Letter (Out) Sathya Vasquez [facility] 1.84.114 350.1.13.10 4.2.7.2.686 [id number] [facility] 2022-05-03 20:02:00 2022-05-03 21:35:00 Emergency X TRACY BABIN [facility] ERT [id number] [facility] 2022-05-03 20:02:00 2022-05-03 21:35:00 Emergency Tracy Babin [facility] 1.84.114 350.1.13.10 4.2.7.2.686 [id number] [facility] 2022-04-30 00:00:00 2022-04-30 00:00:00 Letter (Out) PedroSathya [facility] 1.84.114 350.1.13.10 4.2.7.2.686 [id number] [facility] 2022-04-26 09:40:00 2022-04-26 10:00:00 Urgent Care Sathya Vasquez Unknown, Attending [facility] 1..840.114 350.1.13.10 4.2.7.2.686 [id number] [facility] 2022-04-26 09:40:00 2022-04-26 09:40:00 Outpatient R SATHYA VASQUEZ [facility] [id number] [facility] 2022-04-12 12:40:00 2022-04-12 13:00:00 Urgent Care Sathya Vasquez Unknown, Attending [facility] 1.840.114 350.1.13.10 4.2.7.2.686 [id number] [facility] 2022-04-12 12:40:00 2022-04-12 12:40:00 Outpatient R MARIAMSATHYA Jordan [facility] [id number] [facility] 2022-04-12 00:00:00 2022-04-12 00:00:00 Orders Only Doctor Unassigned, [place] [facility] 1.840.114 350.1.13.10 4.2.7.2.686 [id number] [facility] 2022-04-12 00:00:00 2022-04-12 00:00:00 Letter (Out) JonathanGabriela keysfortino [facility] 1.840.114 350.1.13.10 4.2.7.2.686 [id number] [facility] 2022-01-16 15:15:00 2022-01-16 15:15:00 Outpatient R MARIMAR JEWELL [facility] [id number] [facility] 2021-12-18 09:20:00 2021-12-18 10:35:00 Outpatient R NORA BARRERA [facility] [id number] [facility] 2021-12-18 09:20:00 2021-12-18 10:35:00 Urgent Care Nora Barrera Unknown, Attending [facility] 1.840.114 350.1.13.10 4.2.7.2.686 [id number] [facility] 2021-12-18 00:00:00 2021-12-18 00:00:00 Letter (Out) Nora Barrera [facility] 1.2114 350.1.13.10 4.2.7.2.686 [id number] [facility] 2021-12-14 09:20:00 2021-12-14 10:05:42 Outpatient R MITALI PHILLIPS [facility] [id number] [facility] 2021-12-14 09:20:00 2021-12-14 09:40:00 Urgent Care Mitali Phillips, Attending [facility] 1.114 350.1.13.10 4.2.7.2.686 [id number] [facility] 2021-12-14 00:00:00 2021-12-14 00:00:00 Letter (Out) Nickolas [facility] 1.114 350.1.13.10 4.2.7.2.686 [id number] [facility] 2021-09-18 00:00:00 2021-09-18 00:00:00 Letter (Out) Devorah Zacarias [facility] 1..114 350.1.13.10 4.2.7.2.686 [id number] [facility] 2021-09-17 12:20:00 2021-09-17 13:28:37 Outpatient R STEVIE GREGG [facility] [id number] [facility] 2021-09-17 12:20:00 2021-09-17 13:28:37 [facility] 1.2.840.114 350.1.13.10 4.2.7.2.686 [id number] [facility] 2021-09-07 12:00:00 2021-09-07 12:20:00 Urgent Care Mitali Phillips [facility] 1.2.840.114 350.1.13.10 4.2.7.2.686 [id number] [facility] 2021-09-07 12:00:00 2021-09-07 12:00:00 Outpatient R MITALI PHILLIPS [facility] [id number] [facility] 2021-08-23 09:40:00 2021-08-23 10:09:29 Outpatient R NORA BARRERA [facility] [id number] [facility] 2021-08-23 09:40:00 2021-08-23 10:09:29 [facility] 1.2.840.114 350.1.13.10 4.2.7.2.686 [id number] [facility] 2021-08-23 09:40:00 2021-08-23 10:09:29 Outpatient R NORA BARRERA [facility] [id number] [facility] 2021-05-14 16:00:00 2021-05-14 16:04:22 Outpatient R MONROE ALVARADO [facility] [id number] [facility] 2021-05-14 16:00:00 2021-05-14 16:04:22 Urgent Care Green [facility] 1..840.114 350.1.13.10 4.2.7.2.686 [id number] [facility] 2021-04-29 09:00:00 2021-04-29 09:14:21 Outpatient Sharon [facility] [id number] [facility] 2021-04-29 00:00:00 2021-04-29 00:00:00 Orders Only Doctor Unassigned, [place] [facility] 1..840.114 350.1.13.10 4.2.7.2.686 [id number] [id number] [facility] 2021-02-26 22:03:00 2021-02-26 22:10:00 [facility] [id number] [facility] 2021-02-26 22:03:00 2021-02-26 22:10:00 Emergency Sathya Vasquez [facility] 1..840.114 350.1.13.10 4.2.7.2.686 [id number] [facility] 2021-02-20 12:45:00 2021-02-20 13:00:00 Laboratory Only Only, Ang Db Test Thanh [facility] MEDICAL OFFICE BU[facility] 1..840.114 350.1.13.10 4.2.7.2.686 [id number] [facility] 2021-02-20 12:45:00 2021-02-20 12:45:00 Outpatient R [facility] [id number] [facility] 2021-02-20 00:00:00 2021-02-20 00:00:00 Orders Only Doctor Unassigned, [place] [facility] 1.2.840.114 350.1.13.10 4.2.7.2.686 [id number] [id number] [facility] 2021-02-17 00:00:00 2021-02-17 00:00:00 Letter (Out) DeannDevorah parks [facility] 1.2840.114 350.1.13.10 4.2.7.2.686 [id number] [facility] 2021-02-15 16:15:00 2021-02-15 16:30:00 Laboratory Only Only, Ang Db Test [facility] 1.840.114 350.1.13.10 4.2.7.2.686 [id number] [facility] 2021-02-15 16:15:00 2021-02-15 16:15:00 Outpatient Sharon ALVARADO [facility] [id number] [facility] 2020-05-25 16:00:00 2020-05-25 16:07:24 Outpatient Sharon [facility] [id number] [facility] 2020-05-25 16:00:00 2020-05-25 16:00:00 Outpatient Sharon [facility] [id number] [facility] 2020-05-04 16:10:00 2020-05-04 15:56:54 Outpatient Sharon [facility] [id number] [facility] 2020-03-19 00:00:00 2020-03-19 00:00:00 Letter (Out) Chin Walton [facility] 1.2840.114 350.1.13.10 4.2.7.2.686 [id number] [facility] 2020-03-18 17:12:54 2020-03-18 17:32:54 Laboratory Only Lab, Adc Fam Mitali Moore [facility] Office Building One .114 350.1.13.10 4.2.7.2.686 [id number] [facility] 2020-03-18 17:20:00 2020-03-18 17:20:00 Outpatient R [facility] [id number] [facility] 2020-03-18 17:20:00 2020-03-18 17:20:00 Outpatient R [facility] [id number] [facility] 2020-03-13 00:00:00 2020-03-13 00:00:00 Letter (Out) Chin Walton [facility] 1.114 350.1.13.10 4.2.7.2.686 [id number] 019 [id number] [facility] 2020-03-11 15:40:00 2020-03-11 15:40:00 Outpatient R AREN PASCUAL [facility] [id number] [facility] 2020-03-11 15:06:51 2020-03-11 15:26:51 Laboratory Only Lab, Adc [facility] Office Building One .114 350.1.13.10 4.2.7.2.686 [id number] [facility] 2020-02-15 00:00:00 2020-02-15 00:00:00 Letter (Out) Devorah Zacarias [facility] 1.114 350.1.13.10 4.2.7.2.686 [id number] [facility] 2020-02-15 00:00:00 2020-02-15 00:00:00 Patient Secure Msg Doctor Unassigned, [place] [facility] 1..114 350.1.13.10 4.2.7.2.686 [id number] [id number] [facility] 2020-02-14 15:41:47 2020-02-14 15:56:47 Nurse Visit Nurse, Ramana [facility] Unknown, Attending [facility] 1.2.840.114 350.1.13.10 4.2.7.2.686 [id number] [facility] 2020-02-14 15:45:00 2020-02-14 15:45:00 Outpatient R UNKNOWN, ATTENDING [facility] [id number] [facility] 2019-05-13 13:40:00 2019-05-13 13:40:00 Outpatient R TACHO CAIN [facility] [id number] [facility] 2019-05-11 00:00:00 2019-05-11 00:00:00 Telephone Lolly Michelle [facility] 1.2.840.114 350.1.13.10 4.2.7.2.686 [id number] [facility] 2019-05-11 00:00:00 2019-05-11 00:00:00 Telephone Lolly Michelle [facility] 1.2.840.114 350.1.13.10 4.2.7.2.686 [id number] 2019-05-06 00:00:00 2019-05-06 00:00:00 Orders Only Doctor Unassigned, [place] [facility] 1.2.840.114 350.1.13.10 4.2.7.2.686 [id number] [id number] [facility] 2019-05-06 00:00:00 2019-05-06 00:00:00 Orders Only Doctor Unassigned, [place] [facility] 1.2.840.114 350.1.13.10 4.2.7.2.686 [id number] [id number] 2019-05-04 14:51:49 2019-05-04 16:20:27 Ancillary Visit Lolly Michelle Craig L [facility] Building 1.2.840.114 350.1.13.10 4.2.7.2.686 [id number] [facility] 2019-05-04 14:51:49 2019-05-04 16:20:27 Ancillary Visit Lolly Michelle [facility] 1.2.840.114 350.1.13.10 4.2.7.2.686 [id number] 2019-04-23 14:16:23 2019-04-23 16:08:45 Ancillary Visit Miguel Angel Lolly Anastasiya Tacho Cain [facility] Building 1.2.840.114 350.1.13.10 4.2.7.2.686 [id number] [facility] 2019-04-23 14:16:23 2019-04-23 16:08:45 Ancillary Visit Lolly Michelle [facility] Building 1.2.840.114 350.1.13.10 4.2.7.2.686 [id number] 2019-04-22 14:24:40 2019-04-22 15:14:05 Ancillary Visit Guerline Navarrete Craig L [facility] Building 1.2.840.114 350.1.13.10 4.2.7.2.686 [id number] [facility] 2019-04-22 14:24:40 2019-04-22 15:14:05 Ancillary Visit Guerline Navarrete [facility] Building 1.2.840.114 350.1.13.10 4.2.7.2.686 [id number] 2019-04-16 15:20:00 2019-04-16 15:20:00 Outpatient R TACHO CAIN [facility] [id number] [facility] 2019-04-14 16:16:46 2019-04-14 16:56:46 Ancillary Visit Nathan Michellelanden [facility]astasi[facility] 1.2.840.114 350.1.13.10 4.2.7.2.686 [id number] [facility] 2019-04-14 16:16:46 2019-04-14 16:56:46 Ancillary [facility]olly [facility] 1.2.840.114 350.1.13.10 4.2.7.2.686 [id number] 2019-04-09 16:19:26 2019-04-09 17:01:53 Ancillary Visit Guerline Navarrete Tacho Cain [facility] 1.2.840.114 350.1.13.10 4.2.7.2.686 [id number] [facility] 2019-04-09 16:19:26 2019-04-09 17:01:53 Ancillary [facility] 1.2.840.114 350.1.13.10 4.2.7.2.686 [id number] 2019-04-09 16:20:00 2019-04-09 16:20:00 Outpatient R TACHO CAIN [facility] [id number] [facility] 2019-03-31 08:04:37 2019-03-31 15:11:26 Ancillary Visit Nathan MichelleTacho Alonso [facility] Building 1.2.840.114 350.1.13.10 4.2.7.2.686 [id number] [facility] 2019-03-31 08:04:37 2019-03-31 15:11:26 Ancillary Visit MichelleNathan montanolanden Anastasiya [facility] 1.2.840.114 350.1.13.10 4.2.7.2.686 [id number] 2019-03-31 00:00:00 2019-03-31 00:00:00 Orders Only Doctor Unassigned, [place] [facility] 1.2.840.114 350.1.13.10 4.2.7.2.686 [id number] [id number] 2019-03-31 00:00:00 2019-03-31 00:00:00 Orders Only Doctor Unassigned, [place] [facility] 1.2.840.114 350.1.13.10 4.2.7.2.686 [id number] [facility] 2018-08-28 00:00:00 2018-08-28 00:00:00 Orders Only Doctor Unassigned, [place] [facility] 1.2.840.114 350.1.13.10 4.2.7.2.686 [id number] 2018-08-28 00:00:00 2018-08-28 00:00:00 Orders Only Doctor Unassigned, [place] [facility] 1.2.840.114 350.1.13.10 4.2.7.2.686 [id number] [facility] Results Test Description Test Time Test Comments Results Result Co mments Source [facility] (NA, K, CL, CO2, GLUCOSE, BUN, CREATININE, CA)2023-12-22 00:27:27* Test Item Value Reference Range Interpretation Comme nts NA (test code = 7667141106) 136 mmol/L 135-145 K (test code = 2552360436) 3.8 mmol/L 3.5-5.0 CL (test code = 7701282164) 101 mmol/L 98-108 CO2 TOTAL (test code = 3176032457) 26 mmol/L 23-31 AGAP (test code = 9975679462) 9 2-16 BUN (test code = 3674572188) 9 mg/dL 7-23 GLUCOSE (test code = 0293177903) 93 mg/dL 70-110 CREATININE (test code = 2160-0) 0.69 mg/dL 0.60-1.25 CALCIUM (test code = 7341643133) 9.1 mg/dL 8.6-10.6 eGFR (test code = 70452-9) 135.0 mL/min/1.73m2 CKD-EPI eGFR (20 21). Assuming creatinine has been stable day-to-day for at least three months, the eGFR indicates Category G1 (>= 90 mL/min/1.73 m2) [facility] (21048[facility] (ALB,T.PRO,BILI T,BU/BC,ALT,AST,ALK PHOS)2023-12-22 00:27:27* Test Item Value Reference Range Interpretation Comme nts TOTAL BILI (test code = 7270883129) 0.3 mg/dL 0.1-1.1 BILI UNCON (test code = 6091540467) 0.4 mg/dL 0.1-1.1 BILI CONJ (test code = 0708866237) 0.0 mg/dL 0.0-0.3 T PROTEIN (test code = 9215448272) 8.0 g/dL 6.3-8.2 ALBUMIN (test code = 8842153953) 4.8 g/dL 3.5-5.0 ALK PHOS (test code = 2334277574) 47 U/L 34-122 ALTv (test code = 1742-6) 24 U/L 5-50 AST(SGOT) (test code = 2461558686) 21 U/L 13-40 Lab Interpretation (test cod e = 98383-3) [facility] 00:27:07* Test Item Value Reference Range Interpretation Comme nts LIPASE (test code = 4933644681) 23 U/L 0-220 Lab Interpretation (test cod e = 51100-5) Normal [facility] MOLECULAR [id number] 15:59:55* Test Item Value Reference Range Interpretation Comme nts POCT Molecular Strep (test c ode = 21760-0) Negative Negative Lab Interpretation (test cod e = 06172-1) Normal [facility] SARS-COV-2 ANTIGEN (BINAX NOW)2023-04-01 16:23:00* Test Item Value Reference Range Interpretation Comme nts POCT SARS-COV-2 ANTIGEN (alondra t code = 32637-4) Not Detected Not Detected On board controls acceptable with C Line (test code = 3574) Yes Lab Interpretation (test cod e = 91200-1) Normal [facility]. METABOLIC PANEL (16025)2022-09-04 19:19:31* Test Item Value Reference Range Interpretation Comme nts NA (test code = 8995354130) 139 mmol/L 135-145 K (test code = 6949123446) 3.3 mmol/L 3.5-5.0 L CL (test code = 5378214691) 99 mmol/L 98-108 CO2 TOTAL (test code = 4026228698) 28 mmol/L 23-31 AGAP (test code = 4585577006) 12 2-16 BUN (test code = 3670912317) 8 mg/dL 7-23 GLUCOSE (test code = 8251021110) 92 mg/dL 70-110 CREATININE (test code = 5167605646) 0.73 mg/dL 0.60-1.25 TOTAL BILI (test code = 0234560454) 0.9 mg/dL 0.1-1.1 CALCIUM (test code = 5327509440) 9.5 mg/dL 8.6-10.6 T PROTEIN (test code = 1087196714) 9.3 g/dL 6.3-8.2 H ALBUMIN (test code = 2406908440) 4.6 g/dL 3.5-5.0 ALK PHOS (test code = 0910607916) 50 U/L 34-122 ALTv (test code = 1742-6) 85 U/L 5-50 H AST(SGOT) (test code = 3235607317) 44 U/L 13-40 H eGFR (test code = 2498868877) 137.0 mL/min/1.73m2 YONY (test code = YONY) [...] imaging tests). Lab Interpretation (test code = 07529-2) Abnormal [facility] WITH [id number] 19:07:31* Test Item Value Reference Range Interpretation Comme nts WBC (test code = 6690-2) 8.23 See_Comment [[employer]] The system which generated this result transmitted reference range: 4.20 - 10.70 10*3/?L. The reference range was not used to interpret this result as normal/abnormal. RBC (test code = 789-8) 5.17 See_Comment [[employer]] The system which generated this result transmitted [...] 34.3 g/dL 31.2-35.0 RDW-SD (test code = 03056-3) 39.3 fL 38.5-51.6 RDW-CV (test code = 788-0) 13.1 % 12.1-15.4 PLT (test code = 777-3) 490 See_Comment H [Automated messa ge] The system which generated this result transmitted reference range: 150 - 328 10*3/?L. The reference range was not used to interpret this result as normal/abnormal. MPV (test code = 82489-4) 9.2 fL 9.8-13.0 L NRBC/100 WBC (test code = 1350088434) 0.0 See_Comment [Automated [employer] ssage] The system which generated this result transmitted reference range: 0.0 - 10.0 /100 WBCs. The reference range was not used to interpret this result as normal/abnormal. NRBC x10^3 (test code = 3463197510) See_Comment [Automated messa ge] The system which generated this result transmitted reference range: 10*3/?L. The reference range was not used to interpret this result as normal/abnormal. GRAN MAT (NEUT) % (test code = 770-8) 61.6 % IMM GRAN % (test code = 8811411335) 0.10 % LYMPH % (test code = 736-9) 31.0 % MONO % (test code = 5905-5) 5.5 % EOS % (test code = 713-8) 1.2 % BASO % (test code = 706-2) 0.6 % GRAN MAT x10^3(ANC) (test code = 5053760585) 5.07 10*3/uL 1.99-6.95 IMM GRAN x10^3 (test code = 2640545030) 0.00-0.06 LYMPH x10^3 (test code = 731-0) 2.55 10*3/uL 1.09-3.23 MONO x10^3 (test code = 742-7) 0.45 10*3/uL 0.36-1.02 EOS x10^3 (test code = 711-2) 0.10 10*3/uL 0.06-0.53 BASO x10^3 (test code = 704-7) 0.05 10*3/uL 0.01-0.09 Lab Interpretation (test code = 20344-1) Abnormal [facility] MOLECULAR [id number] 19:48:00* Test Item Value Reference Range Interpretation Comme nts POCT Molecular FluA (test co de = 44816-4) Negative Negative POCT Molecular FluB (test co de = 49488-8) Negative Negative Lab Interpretation (test cod e = 96129-6) Normal [facility] MOLECULAR [id number] 19:48:00* Test Item Value Reference Range Interpretation Comme nts POCT Molecular FluA (test co de = 38009-8) Negative Negative POCT Molecular FluB (test co de = 98303-4) Negative Negative Lab Interpretation (test cod e = 64044-1) Normal [facility] MOLECULAR [id number] 19:48:00* Test Item Value Reference Range Interpretation Comme nts POCT Molecular FluA (test co de = 77657-5) Negative Negative POCT Molecular FluB (test co de = 79149-3) Negative Negative Lab Interpretation (test cod e = 79675-3) Normal [facility] MOLECULAR [id number] 19:48:00* Test Item Value Reference Range Interpretation Comme nts POCT Molecular FluA (test co de = 75942-4) Negative Negative POCT Molecular FluB (test co de = 38836-5) Negative Negative Lab Interpretation (test cod e = 96298-2) Normal [facility] MOLECULAR [id number] 19:48:00* Test Item Value Reference Range Interpretation Comme nts POCT Molecular FluA (test co de = 31268-0) Negative Negative POCT Molecular FluB (test co de = 76794-1) Negative Negative Lab Interpretation (test cod e = 69990-9) Normal [facility] SARS-COV-2 ANTIGEN (BINAX NOW)2022-08-19 19:33:00* Test Item Value Reference Range Interpretation Comme nts POCT SARS-COV-2 ANTIGEN (alondra t code = 31444-6) Not Detected Not Detected On board controls acceptable with C Line (test code = 3574) Yes Lab Interpretation (test cod e = 17930-3) Normal [facility] SARS-COV-2 ANTIGEN (BINAX NOW)2022-08-19 19:33:00* Test Item Value Reference Range Interpretation Comme nts POCT SARS-COV-2 ANTIGEN (alondra t code = 96461-9) Not Detected Not Detected On board controls acceptable with C Line (test code = 3574) Yes Lab Interpretation (test cod e = 16251-5) Normal [facility] SARS-COV-2 ANTIGEN (BINAX NOW)2022-08-19 19:33:00* Test Item Value Reference Range Interpretation Comme nts POCT SARS-COV-2 ANTIGEN (alondra t code = 86406-1) Not Detected Not Detected On board controls acceptable with C Line (test code = 3574) Yes Lab Interpretation (test cod e = 30834-8) [facility] SARS-COV-2 ANTIGEN (BINAX NOW)2022-08-19 19:33:00* Test Item Value Reference Range Interpretation Comme nts POCT SARS-COV-2 ANTIGEN (alondra t code = 50150-4) Not Detected Not Detected On board controls acceptable with C Line (test code = 3574) Yes Lab Interpretation (test cod e = 13975-7) [facility] SARS-COV-2 ANTIGEN (BINAX NOW)2022-08-19 19:33:00* Test Item Value Reference Range Interpretation Comme nts POCT SARS-COV-2 ANTIGEN (alondra t code = 07883-5) Not Detected Not Detected On board controls acceptable with C Line (test code = 3574) Yes Lab Interpretation (test cod e = 79557-8) Normal [facility] MOLECULAR [id number] 19:24:19* Test Item Value Reference Range Interpretation Comme nts POCT Molecular Strep (test c ode = 47252-0) Negative Negative Lab Interpretation (test cod e = 80934-1) [facility] MOLECULAR [id number] 19:24:19* Test Item Value Reference Range Interpretation Comme nts POCT Molecular Strep (test c ode = 78822-6) Negative Negative Lab Interpretation (test cod e = 60890-2) Normal [facility] MOLECULAR [id number] 19:24:19* Test Item Value Reference Range Interpretation Comme nts POCT Molecular Strep (test c ode = 70585-0) Negative Negative Lab Interpretation (test cod e = 11371-6) Normal [facility] MOLECULAR [id number] 19:24:19* Test Item Value Reference Range Interpretation Comme nts POCT Molecular Strep (test c ode = 30651-2) Negative Negative Lab Interpretation (test cod e = 53496-9) Normal [facility] MOLECULAR [id number] 19:24:19* Test Item Value Reference Range Interpretation Comme nts POCT Molecular Strep (test c ode = 37097-8) Negative Negative Lab Interpretation (test cod e = 95599-7) Normal [facility] MOLECULAR [id number] 17:32:56* Test Item Value Reference Range Interpretation Comme nts POCT Molecular Strep (test c ode = 70984-3) Negative Negative Lab Interpretation (test cod e = 45933-7) Normal [facility] MOLECULAR [id number] 15:09:53* Test Item Value Reference Range Interpretation Comme nts POCT Molecular FluA (test co de = 71041-8) Negative Negative POCT Molecular FluB (test co de = 50101-4) Negative Negative Lab Interpretation (test cod e = 39533-5) Normal [facility] MOLECULAR [id number] 15:04:19* Test Item Value Reference Range Interpretation Comme nts POCT Molecular Strep (test c ode = 63992-2) Negative Negative Lab Interpretation (test cod e = 43889-0) Normal [facility] SARS-COV-2 ANTIGEN (BINAX NOW)2022-04-26 15:04:00* Test Item Value Reference Range Interpretation Comme nts POCT SARS-COV-2 ANTIGEN (alondra t code = 49202-8) Positive Not Detected A On board controls acceptable with C Line (test code = 3574) Yes Lab Interpretation (test cod e = 60975-9) Abnormal [facility] MOLECULAR [id number] 19:30:25* Test Item Value Reference Range Interpretation Comme nts POCT Molecular Strep (test c ode = 13732-6) Positive Negative A Lab Interpretation (test cod e = 79123-4) Abnormal [facility] MOLECULAR [id number] 16:10:06* Test Item Value Reference Range Interpretation Comme nts POCT Molecular Strep (test c ode = 72134-8) Negative Negative Lab Interpretation (test cod e = 89859-1) Normal [facility] MOLECULAR [id number] 14:45:48* Test Item Value Reference Range Interpretation Comme nts POCT Molecular FluA (test co de = 77639-0) Positive Negative A Lab Interpretation (test cod e = 00432-1) Abnormal [facility] MOLECULAR [id number] 17:48:29* Test Item Value Reference Range Interpretation Comme nts POCT Molecular Strep (test c ode = 55944-2) Negative Negative Lab Interpretation (test cod e = 95040-4) Normal [facility] MOLECULAR [id number] 15:04:52* Test Item Value Reference Range Interpretation Comme nts POCT Molecular Strep (test c ode = 43220-1) Positive Negative A Lab Interpretation (test cod e = 87375-7) Abnormal [facility]"
--- NOTE | 2024-02-15 07:55 | EDPHYS ---
Physician Documentation [facility] Name: Cliff Kang Age: 23 yrs Sex: Male : 2000 Arrival Date: 02/15/2024 Time: 07:40 Bed 18 Private MD: ED Physician Aldo Rodney HPI: 02/14 07:54 This 23 yrs old Male presents to ER via Ambulatory with complaints of Suicidal ec2 Ideation. 07:54 Patient arrives today with PD due to concern for suicidal ideation. States that he ec2 wants to shoot himself in the head. Patient was seen here and was observed overnight and taken to retirement on discharge and now returns. Patient was medically cleared last night, had lab work that was non-actionable had CT imaging that was also nonconcerning. And was discharged in the care of PD.. Historical: - Allergies: 07:45 Tessalon Perles (Anxiety); db - PMHx: 07:45 ADD/ADHD; Anxiety; Asthma; Depression; mood disorder; db - PSHx: 07:45 Left ACL Repair; db - Immunization history:: Adult Immunizations unknown. - Infectious Disease History:: Denies. - Social history:: Smoking status: Patient uses alcohol. ROS: 07:55 Constitutional: as per hpi ec2 Exam: 07:55 Constitutional: GEN: NAD Head: atraumatic Eyes: EOMI Ears: External ears are ec2 normal. CV: regular rate LUNGS: no respiratory distress ABD: non-distended SKIN: no evidence of rashes MSK: no evidence of trauma. Psych: Endorses suicidal ideation with plan of shooting self. Vital Signs: 07:54 BP 144 / 85; Pulse 100; Resp 18; Temp 99.3; Pulse Ox 98% ; Weight 86.18 kg; Height 5 db ft. 5 in. ; 09:00 BP 142 / 84; Pulse 100; Resp 16; Temp 98.8; Pulse Ox 98% on R/A; db 07:54 Body Mass Index 31.62 (86.18 kg, 165.1 cm) db MDM: 07:42 Medical Screening Exam initiated ec2 07:55 Data reviewed: vital signs, nurses notes. ED course: Patient arrives today for suicidal ec2 ideation. Examination yields positive suicidal thoughts. Examination otherwise unrevealing. Patient medically clear and appropriate for transfer. Patient was medically evaluated and appropriately screened last night and discharged in care of PD and PD and appropriately return patient after he was already evaluated medically . 02/14 07:52 Order name: ETOH Level; Complete Time: 08:42 em1 Administered Medications: No medications were administered Disposition Summary: 02/15/24 07:54 Transfer Ordered Notes: [facility] ec[facility] Reason: Higher level of care ec2 Condition: Stable ec2 Problem: an ongoing problem ec2 Symptoms: are unchanged ec2 Accepting Physician: transferring doc(02/15/24 09:19) db Diagnosis - Suicidal ideations ec2 Forms: - Medication Reconciliation Form ec2 - SBAR form ec2 Signatures: Dispatcher [employer] Autumn Simons RN RN Aldo Rinaldi MD MD ec2 Corrections: (The following items were deleted from the chart) 07:55 07:54 Patient arrives today with PD due to concern for suicidal ideation. States that ec2 he wants to shoot himself in the head. Patient was seen here and was observed overnight and taken to retirement on discharge and now returns. . ec2 07:57 07:55 ED course: Patient arrives today for suicidal ideation. Examination yields ec2 positive suicidal thoughts. Examination otherwise unrevealing. Patient medically clear and appropriate for transfer.. ec2 09:19 07:54 transferring doc ec2 db
--- NOTE | 2024-02-15 07:55 | ER ---
Nurse's Notes [facility] Name: Cliff Kang Age: 23 yrs Sex: Male : 2000 Arrival Date: 02/15/2024 Time: 07:40 Bed 18 Private MD: Diagnosis: Suicidal ideations Presentation: 02/14 07:43 Chief complaint: Patient states: PATIENT BROUGHT IN BY [facility] AND REPORTED db WANTS TO KILL HIMSELF WOULD SHOOT HIMSELF. Coronavirus screen: Client denies travel out of the [place] in the last 14 days. At this time, the client does not indicate any symptoms associated with coronavirus-19. Ebola Screen: Patient negative for fever greater than or equal to 101.5 degrees Fahrenheit, and additional compatible Ebola Virus Disease symptoms Patient denies exposure to infectious person. Patient denies travel to an Ebola-affected area in the 21 days before illness onset. No symptoms or risks identified at this time. Initial Sepsis Screen: Does the patient meet any 2 criteria? No. Patient's initial sepsis screen is negative. Does the patient have a suspected source of infection? No. Patient's initial sepsis screen is negative. Risk Assessment: Do you want to hurt yourself or someone else? Patient reports desire/thoughts of hurting themselves or someone else. Provider notified. Onset of symptoms was February 15, 2024. 07:43 Method Of Arrival: Ambulatory db 07:43 Acuity: MIRNA 2 db Triage Assessment: 07:45 General: Appears in no apparent distress. comfortable, Behavior is calm, cooperative. db Neuro: Level of Consciousness is awake, alert, obeys commands, Oriented to person, place, time, situation. Respiratory: Airway is patent Respiratory effort is even, unlabored, Respiratory pattern is regular, symmetrical. GI: Abdomen is flat. Historical: - Allergies: 07:45 Tessalon Perles (Anxiety); db - PMHx: 07:45 ADD/ADHD; Anxiety; Asthma; Depression; mood disorder; db - PSHx: 07:45 Left ACL Repair; db - Immunization history:: Adult Immunizations unknown. - Infectious Disease History:: Denies. - Social history:: Smoking status: Patient uses alcohol. Screenin:55 [facility] ED Fall Risk Assessment (Adult) History of falling in the last 3 months, db including since admission No falls in past 3 months (0 pts) Confusion or Disorientation No (0 pts) Intoxicated or Sedated No (0 pts) Impaired Gait No (0 pts) Mobility Assist Device Used No (0 pt) Altered Elimination No (0 pt) Score/Fall Risk Level 0 - 2 = Low Risk Oriented to surroundings, Maintained a safe environment. Abuse screen: Denies threats or abuse. Denies injuries from another. Nutritional screening: No deficits noted. Tuberculosis screening: No symptoms or risk factors identified. Assessment: 07:55 Reassessment: SEE TRIAGE FOR INITIAL ASSESSMENT. PATIENT BROUGHT IN BY PD. WITH db LONGTERM WARRANT. Pain: Denies pain. 08:34 Reassessment: Patient appears in no apparent distress at this time. Patient and/or db family updated on plan of care and expected duration. Pain level reassessed. Patient is alert, oriented x 3, equal unlabored respirations, skin warm/dry/pink. REPORT GIVEN TO IVETTE AT [facility]. STATES WILL ACCEPT PATIENT. 08:58 Reassessment: EMS ARRIVED FOR PATIENT TRANSPORT. db 09:00 Reassessment: Patient appears in no apparent distress at this time. Patient and/or db family updated on plan of care and expected duration. Pain level reassessed. Patient is alert, oriented x 3, equal unlabored respirations, skin warm/dry/pink. Patient states feeling better. Patient states symptoms have improved. General: Appears in no apparent distress. comfortable, Behavior is calm, cooperative. Neuro: Level of Consciousness is awake, alert, obeys commands, Oriented to person, place, time. Respiratory: Airway is patent Respiratory effort is even, unlabored, Respiratory pattern is regular, symmetrical. Psych: 07:40 Sawyer Suicide Severity Screening: In the past month, have you wished you were db or wished you could go to sleep and not wake up? Patient responds "No." "In the past month, have you actually had any thoughts of killing yourself?" Patient responds "yes." Based off the client's response additional Sawyer suicide severity screening questions to be further documented on paper forms. "In your lifetime, have you ever done anything, started to do anything, or prepared to do anything to end your life?" Patient responds "no." STATES ONLY THOUGHTS. Subjective: Patient's mood is sad, Delusions are denied, Hallucinations are denied Having thoughts of suicide. Plan for suicide is STATEMENT OF SHOOTING SELF. Objective: Patient is cooperative, Speech is normal, Affect is appropriate. Interventions: Removed personal items and placed in bag. Patient placed in hospital gown. Searched person for dangerous items. Safety Checks: Personal items have been removed. Door is open. No visitors are present at this time. Patient uses Last use was 1 days ago. Commitment: Patient will be an involuntary commitment. Commitment papers completed. Vital Signs: 07:54 BP 144 / 85; Pulse 100; Resp 18; Temp 99.3; Pulse Ox 98% ; Weight 86.18 kg; Height 5 db ft. 5 in. ; 09:00 BP 142 / 84; Pulse 100; Resp 16; Temp 98.8; Pulse Ox 98% on R/A; db 07:54 Body Mass Index 31.62 (86.18 kg, 165.1 cm) db ED Course: 07:40 Patient arrived in ED. eb 07:41 Aldo Rodney MD is Attending Physician. ec2 07:42 Autumn Wise, RN is Primary Nurse. db 07:45 Triage completed. db 07:46 Arm band placed on Patient placed in an exam room. db 07:55 Patient has correct armband on for positive identification. SITTER AT BEDSIDE. Patient db is placed in psych hold. 07:55 No provider procedures requiring assistance completed. db 08:01 faxed patient clinical information to Sheree Antunez , [facility] and [facility] in attempt to find placement. 08:05 Initial lab(s) drawn, by me, sent to lab. Inserted STRAIGHT STICK RIGHT AC. db 08:29 connected Ivette Mclean from [facility] with Autumn Mclean for nurse to nurse report.eb 08:34 administrative approval given by Yoni Sanderson/ patient has been accepted to [facility] called for transport. 09:05 Provided Education on: TRANSFER. db 09:05 Warm blanket given. Pillow given. db 09:05 Patient did not have IV access during this emergency room visit. db Administered Medications: No medications were administered Medication: 07:55 VIS not applicable for this client. db Outcome: 07:54 ER care complete, transfer ordered by . ec2 09:05 Transferred by ground EMS Transfer form completed. Note: [facility] 09:05 Condition: stable 09:05 Instructed on the need for transfer, 09:19 Patient left the ED. db Signatures: Chelita Caro Danielle, RN RN db Aldo Rodney MD MD ec2 Corrections: (The following items were deleted from the chart) 09:12 09:00 BP 142 / 84; Pulse 98bpm; Resp 16bpm; Pulse Ox 98% RA; Temp 98.8F; db db
[2024-02-15 09:24] VITALS: O2SAT 98
[2024-02-15 09:25] VITALS: BP 142/84; TEMP 98.8
== END 2024-02-15 09:19 ==
LOC: ER 07:40
DX: R45.851 Suicidal ideations (principal)
CPT/HCPCS: 36415; 82077; 99285